=== PATIENT | female | born 1940 | race Caucasian/White ===

== ENCOUNTER 2016-06-12 09:29 | Inpatient (IN) | payer MEDICARE, OTHER ==
[~2016-06-12] VITALS: Ht 157.5 cm; Wt 86.9 kg
[2016-06-12] MEDS: TIOTROPIUM INHALER/CAPSULE (SPIRIVA) INH SCH (08:00)
[~2016-06-12 09:29] MED LIST: /ADVA50050; /ALEN70TA; /LINE60TA PO; /OXYB10XLT PO; /TIOT18INH; ADV250INH INH; ALBU0.084 INH; ALBU1.25 INH; ALBU17IN INH; ALBU83IN INH; ALBUPOW25 NEB; ALBUPOW9 XX; ALEN70TA39 PO; ALPR0.5T3 PO; AMLO10TA2 PO; ASAC800T2 PO; ASPI1TAB PO; ASPI81TA85 PO; AZIT250T3 PO; AZIT500T2 PO; Amlodipine Besylate PO; BENI20TA11; BUDEPOW INH; CALC12502; CALC1TAB30 PO; CALC500T49 PO; CALC600T7 PO; CALC950T PO; CALCTAB41 PO; CALCTAB68 PO; CLAR10CA3 PO; CLAR1TAB2 PO; CLARITIN; COLA100C PO; COLA50CA3 PO; COUM1TAB17 PO; COUM1TAB19 PO; COUM2.5T11 PO; COZA100T; DITROPAXL5 PO; DOXY10CA PO; ECOT325T5; EFFEXOR; ENTO3CAP5 PO; ERYT5OPO OD; ESTR3TA; FERR325T PO; FERR325T3 PO; FISHCAP PO; FLON0.05; FLON0.054; FLON1SPR; FLUO20CA8 PO; FLUO20CA9 PO; FLUO40CA57 PO; FLUT1SPR2; FOSAMAX70 PO; FURO20TA2 PO; GABA400C PO; GABA600T PO; GABA600T3; HYDR-3716 PO; HYDR-4274 PO; HYDR7.5T38 PO; IPRA2IN INH; IPRASOL4 INH; LASI20TA PO; LASI40TA PO; LEVA500T PO; LEVO500T PO; LOSA50TA20 PO; LOVE0.8I SC; LUNE3TAB PO; LUNE3TAB48 PO; MAG-OX PO; MAGN400T5 PO; MAGN500T PO; MAGN500T2 PO; MAGN500T5 PO; MECL12.575 PO; MIRA3350 PO; NEUR600T PO; NICOTINE GUM PO; NITR4TASL SL; NORC7.5T PO; NORV5TAB PO; NYST50SS SS; OMEP40CA2 PO; OXYB10TA; OXYB10TA PO; OXYB15TA PO; OXYB5SYP PO; OXYB5TA PO; PANT40TA2 PO; PERC5TAB8; PRED10TA PO; PRED10TA2 PO; PRED20TA PO; PRED50TA2 PO; PRED5TAB PO; PRIL20CA; PROV90AE; SENO8.6T10 PO; SIMV10TA2; SIMV10TA2 PO; SOMA; SPIR1CAP INH; SPIRIVA INH; TEMA15CA2 PO; THEO300T5 PO; THEOPHYLLINE; TRAZ100T4 PO; TRAZ10TA PO; TRAZ25TA PO; VENTAER INH; VICOBULK PO; VITA500047 PO; VITAD1000T PO; VITMTA PO; WARF-18 PO; WARF-20 PO; WARF-58 PO; XANA0.5T; XANA0.5T PO; XOPE1.252; ZALE10CA PO; [UNRECOGNIZED DRUG - CODE] PO; [UNRECOGNIZED DRUG - CODE] PO
[2016-06-12] MEDS ORDERED: IPRATROPIUM 0.5MG/ALBUTEROL 2.5MG INH SOL UD 3ML (DUONEB)(J7620) As Ordered ONE (10:03)
[2016-06-12] MEDS ORDERED: methylPREDNISolone INJ 125 MG/2 ML VIAL (J2930) As Ordered ONE (10:09)
--- NOTE | 2016-06-12 10:12 | REP ---
Clinical: Shortness of breath . Comparison: 05/27/2016 . Findings: The mediastinum and cardiac silhouette are stable and within normal limits for portable technique. The lung crump are clear without acute consolidation, effusion, or pneumothorax. Skeletal structures are intact. Impression: Normal portable chest x-ray Signed by Abisai Reyes MD 06/12/2016 10:04 A
[2016-06-12] MEDS ORDERED: WARF-23 PO (10:29)
[2016-06-12] MEDS ORDERED: OXYB10TA PO (10:29)
[2016-06-12] MEDS ORDERED: FLUO20CA9 PO (10:29)
[2016-06-12 10:35] LABS: INR 1.32
[2016-06-12 10:47] LABS: ABG BASE EXCESS 8.1 (-2.0-2.0); ABG DEVICE NASAL CANN; ABG PARTIAL PRESSURE CO2 47.3 mmHg (35.0-45.0); ABG PARTIAL PRESSURE O2 59.2 mmHg (75.0-100.0); ABG STANDARD HCO3 31.8 MEQ/L (22.0-26.0); ABG TOTAL CO2 34.4 MEQ/L (23.0-31.0); ABG pH (ARTERIAL) 7.461 UNITS (7.350-7.450)
[2016-06-12 10:52] LABS: ANION GAP 10 MEQ/L (8-16); BLOOD UREA NITROGEN 27 MG/DL (7-18); CALCIUM LEVEL 8.8 MG/DL (8.8-10.2); CARBON DIOXIDE LEVEL 32 MEQ/L (21-32); CHLORIDE LEVEL 103 MEQ/L (98-107); CREATININE FOR GFR 1.74 MG/DL (0.55-1.02); GLOMERULAR FILTRATION RATE 30.2 (>39); GLUCOSE, FASTING 165 MG/DL (83-110); POTASSIUM SERUM 3.9 MEQ/L (3.5-5.1); SODIUM LEVEL 145 MEQ/L (136-145)
[2016-06-12 10:54] LABS: MEAN CORPUSCULAR HEMOGLOBIN 30.2 pg (27.0-33.0); MEAN CORPUSCULAR HGB CONC 31.6 g/dl (32.0-36.5); MEAN CORPUSCULAR VOLUME 95.7 fl (80.0-96.0); PLATELET COUNT, AUTOMATED 252 k/mm3 (150-450); RED CELL DISTRIBUTION WIDTH 15.3 % (11.5-14.5); WHITE BLOOD COUNT 20.8 K/mm3 (4.0-10.0)
--- NOTE | 2016-06-12 11:04 | REP ---
Clinical: Pain and swelling with shortness of breath . Technique: Laird scale and color Doppler evaluation using linear high frequency transducer. Findings: Ultrasound examination of the left lower extremity deep venous structures from the common femoral vein to the popliteal vein demonstrates normal compressibility flow and wave patterns in response to respiration and augmentation. There is no evidence for deep venous thrombosis. Impression: No evidence for deep venous thrombosis. Signed by Abisai Reyes MD 06/12/2016 10:56 A
[2016-06-12 11:29] LABS: BANDS 7 % (< 11)
[2016-06-12 11:30] LABS: ANISOCYTOSIS 1+; MICROCYTOSIS 1+; POIKILOCYTOSIS 1+
[2016-06-12] MEDS ORDERED: AZITHROMYCIN INJ 500MG VIAL (J0456) As Ordered ONE (11:45)
[2016-06-12] MEDS ORDERED: cefTRIAXone SOD 1 GM VIAL (J0696) As Ordered ONE (11:45)
--- NOTE | 2016-06-12 12:15 | REP ---
Clinical: Seizures. Comparison: 11/25/2014 . Findings: Age-related atrophy and microvascular ischemic changes are appreciated along with chronic scattered parenchymal calcifications. The ventricles and sulci are symmetric. Laird-white differentiation is maintained. There is no evidence for acute intracranial hemorrhage, mass/mass effect, pathology or infarction. No extra-axial fluid collection. Calvarium is intact. Paranasal sinuses and mastoid air cells are clear. Impression: Age related atrophy and microvascular ischemic changes. No acute intracranial hemorrhage, infarction, or mass/mass effect. Signed by Abisai Reyes MD 06/12/2016 12:06 P
[2016-06-12 12:28] LABS: MAGNESIUM LEVEL 1.8 MG/DL (1.8-2.4)
[2016-06-12] MEDS ORDERED: ONDANSETRON 4MG/2ML VIAL (J2405) IV PRN (13:15)
--- NOTE | 2016-06-12 13:39 | HPEPDOC ---
General Date of Admission 06/12/16 Chief Complaint The patient is a 75-year-old female admitted with a reason for visit of Short Of Breath. History of Present Illness 75-year-old female past medical history of breast cancer, COPD on 2 L of home oxygen at baseline, pulmonary embolus on Coumadin, depression, and CKD stage III presented to the ER with a chief complaint of increasing shortness of breath. The patient was recently discharged from here after completing antibiotics and being tapered off steroids for a COPD exacerbation. Since then, the patient states that her shortness of breath has returned and gotten worse. She did go to her primary care physician Dr. Lee, and did complete a 7 day trial of Levaquin and she was prescribed steroids yesterday. However, the patient states that she has been feeling more weak and short of breath over all , and this is much worse than her baseline. She denies any fevers, chills, lightheaded and is, chest pain, palpitations, abdominal pain, or any nausea, vomiting, or diarrhea. In the ER, a chest x-ray revealed no acute findings. Her ABG appears to be close to her baseline readings when compared to the past. However, the patient was noted to be actively wheezing on exam and uncomfortable. She has been given a dose of 125 mg of Solu-Medrol and started on IV antibiotics here. We will admit the patient to the hospitalist service with a COPD exacerbation. Home Medications Scheduled (Calcium 500+D 500-200 mg-Unit) 1 Tab Tab 1 TAB PO BID (Reported) Alendronate Sodium (Alendronate Sodium) 70 Mg Tab 70 MG PO QWEEK (Reported) EVERY TUESDAY Amlodipine Besylate (Amlodipine Besylate) 10 Mg Tab 10 MG PO DAILY (Reported) Aspirin (Aspirin 81) 81 Mg Tab 81 MG PO DAILY (Reported) Docusate Sodium (Colace) 100 Mg Cap 100 MG PO BID (Reported) Ferrous Sulfate (Ferrous Sulfate) 325 Mg Tab 325 MG PO DAILY (Reported) Fluoxetine Hcl (Fluoxetine HCl) 20 Mg Cap 60 MG PO DAILY (Reported) Fluticasone Propionate (Fluticasone Propionate 0.05%) 120 [place]/16 Gm Naspr 2 SPRAY NA QHS (Reported) PER NOSTRIL Furosemide (Furosemide) 20 Mg Tab 60 MG PO DAILY (Reported) Gabapentin (Gabapentin) 600 Mg Tab 600 MG PO BID (Reported) Loratadine (Claritin) 10 Mg Tab 10 MG PO QHS (Reported) Magnesium Oxide (Magnesium) 500 Mg Tab 500 MG PO QHS (Reported) Nystatin (Nystatin Oral Susp) 5 Ml Susp 5 ML SS QID (Reported) for 10 days, filled 06/03 Oxybutynin Chloride (Oxybutynin Chloride ER) 10 Mg Tab 10 MG PO DAILY (Reported ) Pantoprazole Sodium (Pantoprazole Sodium) 40 Mg Tab 40 MG PO DAILY (Reported) Polyethylene Glycol (Miralax) 1 Pow Pow 17 GM PO DAILY (Reported) Prednisone (Prednisone) 10 Mg Tab 10 MG PO DAILY (Reported) Salmeterol/Fluticasone (Advair Diskus 250-50 Mcg/Dose) 14 Puff/Inhaler Aerp 1 PUFF INH BID (Reported) Simvastatin (Simvastatin) 10 Mg Tab 10 MG PO QHS (Reported) Tiotropium Roulette Monohydrate (Spiriva Handihaler) 18 Mcg Cap 1 INHALATION INH DAILY (Reported) Trazodone HCl (Trazodone HCl) 100 Mg Tab 200 MG PO QHS SLEEP (Reported) Warfarin Sod (Warfarin Sodium) 5 Mg Tab 5 MG PO QPM (Reported) Scheduled PRN Acetaminophen/Hydrocodone ([place]illips 7.5-325 mg) 1 Tab Tab 1 TAB PO QID PRN PRN PAIN (Reported) Albuterol Sulfate (Ventolin Hfa) 200 Puff/8 Gm Aers 2 PUFF INH Q4H PRN PRN SHORTNESS OF BREATH (Reported) Albuterol/Ipratropium (Ipratropium Roulette/Albut 0.5-2.5 (3) mg/3Ml) 1 Alek Alek 1 ALEK INH Q4H PRN PRN SHORTNESS OF BREATH (Reported) Nitroglycerin (Nitrostat) 0.4 Mg Subl 0.4 MG SL Q5MP PRN PRN CHEST PAIN ( Reported) Allergies Coded Allergies: Lisinopril (Verified Allergy, Intermediate, HIVES ND SWELLING, 09/18/12) Penicillins (Verified Allergy, Intermediate, TRIMOX-HIVES, 09/18/12) Sulfa Drugs (Verified Allergy, Intermediate, HIVES, 09/18/12) Amoxicillin (Unverified Allergy, Unknown, 08/20/15) Oxycodone (Verified Allergy, Unknown, PERCOCET, 09/18/12) Temazepam (Unverified Allergy, Unknown, 08/20/15) Past Medical History Medical History As noted in HPI Family History Significant Family History: No pertinent family hx Social History * Smoker: former Smoker Alcohol: denies Drugs: denies Social History Currently retired, lives with her daughter in [place]. Previously able to ambulate with a walker. However unable to do so due to overall deconditioning and worsening shortness of breath over the last 4-8 weeks. Review of Symptoms Other systems 10 point review of systems negative unless otherwise specified in HPI. Physical Examination ENT Exam: Positive: Atraumatic, Mucous membr. moist/pink Neck Exam: Negative: JVD Chest Exam: Positive: Diminished, Wheezing, Negative: Rales Heart Exam: Positive: Normal S1, Normal S2, Rate Normal Telemetry: Positive: Sinus Abdomen Exam: Positive: Soft, Negative: Tenderness Extremity Exam: Positive: Other (left calf noted to be larger than right, this is the patient's baseline. Ultrasound of the lower extremity is negative for DVT in the ER.) Vital Signs As noted in EMR. Laboratory Data Labs 24H Laboratory Tests 2 06/12/16 09:59: Anion Gap 10, Anisocytosis 1+, B-Type Natriuretic Peptide 133H, Band Neutrophils 7, White Blood Count 20.8H, Red Blood Count 3.57L, Hemoglobin 10.8L , Hematocrit 34.1L, Mean Corpuscular Volume 95.7, Mean Corpuscular Hemoglobin 30.2, Mean Corpuscular Hemoglobin Concent 31.6L, Red Cell Distribution Width 15.3H, Platelet Count 252, Neutrophils (%) (Auto) , Lymphocytes (%) (Auto) , Monocytes (%) (Auto) , Eosinophils (%) (Auto) , Basophils (%) (Auto) , Neutrophils # (Auto) , Lymphocytes # (Auto) , Monocytes # (Auto) , Eosinophils # (Auto) , Basophils # (Auto) , Blood Urea Nitrogen 27H, Creatinine 1.74H, Sodium Level 145, Potassium Level 3.9, Chloride Level 103, Carbon Dioxide Level 32, Calcium Level 8.8, Total Creatine Kinase 40, Creatine Kinase MB 1.0, Creatine Kinase MB Relative Index 2.50, Glomerular Filtration Rate 30.2L, Large Unclassified Cells # , Large Unclassified Cells % , Lymphocytes (Manual) 2L, Magnesium Level 1.8, Microcytosis 1+, Monocytes (Manual) 3, Neutrophils 88H, Platelet Estimate NORMAL, Poikilocytosis 1+, Prothromb Time International Ratio 1.32, Prothrombin Time 16.5H, Troponin I < 0.02 06/12/16 10:32: Arterial Blood pH 7.461H, Arterial Blood Partial Pressure CO2 47.3H, Arterial Blood Partial Pressure O2 59.2L, Arterial Blood Total CO2 34.4H, Arterial Blood HCO3 33.0H, Arterial Blood Base Excess 8.1H, Arterial Blood Oxygen Saturation 92.2L, Blood Gas Bicarbonate Standard 31.8H, Oxygen Delivery Device NASAL CARLOS 06/12/16 11:37: Lactic Acid Level 2.3*H CBC/BMP Laboratory Tests 06/12/16 09:59 Calcium Level 8.8, Total Creatine Kinase 40, Red Blood Count 3.57 L, Mean Corpuscular Volume 95.7, Mean Corpuscular Hemoglobin 30.2, Mean Corpuscular Hemoglobin Concent 31.6 L, Red Cell Distribution Width 15.3 H, Neutrophils (%) ( Auto) , Lymphocytes (%) (Auto) , Monocytes (%) (Auto) , Eosinophils (%) (Auto) , Basophils (%) (Auto) , Neutrophils # (Auto) , Lymphocytes # (Auto) , Monocytes # (Auto) , Eosinophils # (Auto) , Basophils # (Auto) Microbiology Microbiology 06/12/16 Blood Culture, Received Pending 06/12/16 Blood Culture, Received Pending 06/12/16 Influenza Virus Type A Antigen - Final, Complete 06/12/16 Influenza Virus Type B Antigen - Final, Complete 06/12/16 Gram Stain - Final, Resulted 06/12/16 Sputum Culture, Resulted Pending Plan / VTE VTE Prophylaxis Ordered?: Yes Plan Plan (1) COPD exacerbation Status: Acute Response to Treatment: Stable Problem Text: ABG noted to be within the patient's baseline limits Chest x-ray notable for chronic fibrotic changes We will start the patient on Rocephin, azithromycin here for COPD exacerbation Status post Solu-Medrol 125 mg in the ED, we'll continue 60 every 8 hours Continue Advair, Tiotropium, and duo nebs [id number] Sputum culture ordered We'll continue to monitor the patient's respiratory status Chronic kidney disease Status: Chronic Response to Treatment: Stable Problem Text: Patient's baseline serum creatinine noted to be between 1.6 and 1.8 (3) Pulmonary embolism Status: Chronic Response to Treatment: Stable Problem Text: Status post IVC filter in 04/27 Patient's INR noted to be subtherapeutic at 1.32 today The patient states that her INR has been very labile in the past, and she has had a difficult time controlling this with her PCP We'll give patient an 7.5 mg dose this evening Continue Coumadin 5 mg daily starting tomorrow, and we will make any adjustments thereafter if necessary (4) Diabetes Status: Chronic Response to Treatment: Stable Problem Text: Continue on insulin sliding scale. (5) HTN (hypertension) Status: Chronic Response to Treatment: Stable Problem Text: Currently controlled, continue on home regimen of Norvasc (6) Depression Status: Chronic Response to Treatment: Stable Problem Text: No suicidal or homicidal ideations Continue on trazodone (7) CAD (coronary artery disease) Status: Chronic Response to Treatment: Stable Problem Text: Continue on aspirin 81 mg and statin ? Not on beta roque possibly secondary to underlying COPD (8) Diastolic congestive heart failure Status: Chronic Response to Treatment: Stable Problem Text: On Lasix 60 mg daily Does not appear to be decompensated at this time (9) ?Tremors Patient noted to have episodes of tremors/rigors in the ED Appears to be alert, oriented with no confusion following these events Will continue to monitor, consider EEG if these symptoms persist or worsen Disposition The Patient did express concern about multiple visits and hospitalizations to [facility] over the last few weeks. She understands that she does have end-stage COPD along with chronic kidney disease and heart failure. The patient did request to have a hospice consult placed to discuss further options regarding her medical care. JUAN AGRAWAL MD Jun 12, 2016 13:39
[2016-06-12] MEDS ORDERED: NITROGLYCERIN 0.4 MG SUBL TABLET SL PRN (13:45)
[2016-06-12] MEDS ORDERED: IPRATROPIUM 0.5MG/ALBUTEROL 2.5MG INH SOL UD 3ML (DUONEB)(J7620) NEB PRN (13:45)
[2016-06-12] MEDS ORDERED: GLUCOSE 4 GM CHEW TABLET PO PRN (14:00)
[2016-06-12] MEDS ORDERED: DEXTROSE 50% 50 ML SYRINGE IV PRN (14:00)
[2016-06-12] MEDS ORDERED: GLUCAGON FOR INJ 1 MG VIAL (J1610) SC PRN (14:00)
--- NOTE | 2016-06-12 15:26 | EDDOCDS ---
Physician Documentation [facility] Name: Isidra Delacruz Age: 75 yrs Sex: Female : 1940 Arrival Date: 06/12/2016 Time: 09:29 Bed 18 Private MD: Disposition: 06/12/16 12:14 Hospitalization ordered by Zain Moore for Inpatient Admission. Preliminary diagnosis is Chronic obstructive pulmonary disease with acute lower respiratory infection. - [facility] - Status is Inpatient Admission. jjr - Condition is Stable. - Problem is an acute exacerbation. - Symptoms have improved. Historical: - Allergies: Amoxicillin (Hives); Lisinopril (Swelling); Oxycodone HClagitation; Temazepam (Swelling); SULFA (SULFONAMIDES) (Hives); - Home Meds: 1. [place] 7.5-325 mg Oral tab qid prn 2. albuterol sulfate 2.5 mg /3 mL (0.083 %) Inhl nebu 4 times per day (Last dose: 06/12/2016) 3. albuterol sulfate 90 mcg/actuation Inhl aepb every 4 hours (Last dose: 06/12/2016) 4. alendronate 70 mg oral tab once wkly Tuesday 5. amlodipine 10 mg Oral tab 1 tab once daily (Last dose: 06/12/2016) 6. aspirin 81 mg Oral chew once daily (Last dose: 06/12/2016) 7. Calcium + Vitamin D 5oo/200 Oral twice a day (Last dose: 06/12/2016) 8. Colace 100 mg oral tab 1 cap 2 times per day takes 1 daily as needed (Last dose: 06/12/2016) 9. erythromycin 5 mg/gram (0.5 %) Opht oint 6 times per day 10. ferrous sulfate 325 mg (65 mg iron) Oral cpER daily 11. fluoxetine 60 mg Oral tab once daily (Last dose: 06/12/2016) 12. fluticasone-salmeterol 45-21 mcg/actuation inhalation HFAA 2 puffs 2 times per day 13. fluticasone 50 mcg/actuation nasal spsn 2 sprays once daily (Last dose: 06/11/2016) 14. furosemide 60 mg Oral tab 1.5 tab once daily (Last dose: 06/12/2016) 15. gabapentin 600 mg Oral tab 1 tab bid (Last dose: 06/12/2016) 16. loratadine 10 mg Oral tab 1 tab once daily (Last dose: 06/11/2016) 17. magnesium oxide 500 mg Oral cap nightly (Last dose: 06/11/2016) 18. Nitrostat 0.4 mg SL subl every 5 minutes prn (Last dose: 06/12/2016) 19. nystatin 100,000 unit/mL Oral susp 10 mL 4 times per day 20. oxybutynin chloride 15 mg Oral tr24 once daily (Last dose: 06/12/2016) 21. Protonix 40 mg Oral TbEC 1 tab once daily (Last dose: 06/12/2016) 22. oxygen NC 2 liters continuous 23. polyethylene glycol 3350 17 gram/dose oral powd once daily (Last dose: 06/12/2016) 24. prednisone 10 mg Oral tab once daily (Last dose: 06/12/2016) 25. Advair Diskus 250-50 mcg/dose Inhl dsdv 2 times per day (Last dose: 06/11/2016) 26. simvastatin 10 mg Oral tab 1 tab once daily (Last dose: 06/11/2016) 27. Spiriva with HandiHaler 18 mcg Inhl CpDv 1 cap once daily (Last dose: 06/11/2016) 28. trazodone 100 mg Oral tab 2 tabs nightly (Last dose: 06/11/2016) 29. Coumadin 5 mg oral tab once daily (Last dose: 06/11/2016) - PMHx: Cancer, Breast - Left; Cancer, Breast - Right; CHF; GERD; PE; Anxiety; COPD; - PSHx: Mastectomy- Bilateral; Tubal ligation; Ankle Arthroplasty, Left; Shoulder Arthroplasty, Left; lumbar surgery; - Social history: Smoking status: Patient states former smoker of tobacco. No barriers to communication noted, The patient speaks fluent [place]. - : The pt / caregiver states he / she is on anticoagulants: coumadin. Home medication list is obtained from a discharge med list. - Exposure Risk Screening:: None identified. Vital Signs: 06/12 09:46 BP 141 / 82; Pulse 95; Resp 24; Temp 96.9(O); Pulse Ox 91% on 2 lpm NC; Weight 86.18 kg jml1 / 189.99 lbs; Height 5 ft. 2 in. (157.48 cm); Pain 8/10; 09:59 BP 203 / 86 (auto/); jjr 09:59 Pulse 82 MON; Pulse Ox 91% ; jjr 10:14 BP 178 / 81 (auto/); jjr 10:14 Pulse 86 MON; Pulse Ox 91% ; jjr 10:44 BP 185 / 81 (auto/); jjr 10:44 Pulse 76 MON; Pulse Ox 88% ; jjr 10:49 Pulse 74 MON; Pulse Ox 91% on 2 lpm NC; jjr 11:14 BP 138 / 63 (auto/); jjr 11:14 Pulse 74 MON; Resp 24; Pulse Ox 98% ; jjr 11:44 BP 146 / 67 (auto/); jjr 11:44 Pulse 84 MON; Resp 24; Pulse Ox 90% on 2 lpm NC; jjr 12:13 Pulse 100 MON; Pulse Ox 88% ; jjr 12:14 BP 117 / 91 (auto/); jjr 12:44 BP 126 / 60 (auto/); jjr 12:44 Pulse 94 MON; Resp 20; Pulse Ox 89% on 2 lpm NC; jjr 14:24 BP 129 / 75 (auto/); jjr 14:24 Pulse 80 MON; jjr 14:26 BP 129 / 75; Pulse 81; Resp 24; Temp 98.6(O); Pulse Ox 92% on 2 lpm NC; Pain 0/10; jjr 15:19 Pulse 80 MON; jjr 15:21 BP 137 / 62 (auto/); Resp 24; Pulse Ox 90% on 2 lpm NC; jjr 09:46 Body Mass Index 34.75 (86.18 kg, 157.48 cm) jml1 MDM: 09:34 ECG WITH READING ER PHYS+CARDIAG ordered. EDMS 09:52 Solu-MEDROL 125 mg IVP once ordered. sd1 09:52 -Blood Culture (Adults Only), peripheral from different site, or from device/port/PICC sd1 etc. if present ordered. 09:52 Call Respiratory ordered. sd1 09:52 Director Of Materials Management/Pulse Ox/q 15 min VS ordered. sd1 09:52 IV Saline Lock ordered. sd1 09:52 Oxygen at 4L/Min NC or Home dosage ordered. sd1 09:52 Rhythm Strip to chart ordered. sd1 09:52 Albuterol-Ipratropium 1 neb Nebulizer every 20 minutes x3 ordered. sd1 09:52 -Arterial Blood Gas Ordered. EDMS 09:52 B-Type Natiuretic Peptide Ordered. EDMS 09:52 Basic Metabolic Profile Ordered. EDMS 09:52 CBC with Diff Ordered. EDMS 09:52 Cardiac Injury Profile Ordered. EDMS 09:52 Troponin Ordered. EDMS 09:52 -Blood Culture Ordered. EDMS 09:53 Chest, 1 View Ordered. EDMS 09:53 BED REQUEST+ADM ordered. EDMS 09:56 -Blood Culture (Adults Only), peripheral from different site, or from device/port/PICC deg etc. if present complete. 09:56 Call Respiratory complete. deg 09:56 BLOOD CULTURES Ordered. EDMS 10:03 Sputum Culture & Gram Stain Ordered. EDMS 10:04 PT/INR Ordered. EDMS 10:12 US Lower Extremity R/O DVT Ordered. EDMS 10:57 DIFFERENTIAL NO CHARGE Ordered. EDMS 10:57 PLATELET ESTIMATE Ordered. EDMS 11:04 Financial registration complete. mm15 11:06 -Arterial Blood Gas Reviewed. sd1 11:06 B-Type Natiuretic Peptide Reviewed. sd1 11:06 Basic Metabolic Profile Reviewed. sd1 11:06 CBC with Diff Reviewed. sd1 11:06 PT/INR Reviewed. sd1 11:06 Cardiac Injury Profile Reviewed. sd1 11:06 Troponin Reviewed. sd1 11:06 Chest, 1 View Reviewed. sd1 11:10 -Influenza A&B Rapid Antigen - Nose Ordered. EDMS 11:25 Lactic Acid (Laird tube on ice) Ordered. EDMS 11:41 CBC with Diff Reviewed. sd1 11:41 PLATELET ESTIMATE Reviewed. sd1 11:41 US Lower Extremity R/O DVT Reviewed. sd1 11:43 cefTRIAXone 1 grams IVPB once over 30 mins; dilute in 50mL of NS or D5W ordered. sd1 11:43 azithromycin 500 mg IVPB once over 1 hrs; dilute in 250mL of D5W or NS ordered. sd1 11:49 CT Head Without Contrast Ordered. EDMS 12:00 -Influenza A&B Rapid Antigen - Nose Reviewed. sd1 12:12 CONSISTENT CARBOHYDRATE+DIET ordered. EDMS 12:41 T-Sheet-- Draft Copy was scanned into [employer] and attached to record. [facility] 13:22 Admission / Observation Status ordered. EDMS 13:23 CONSISTENT CARBOHYDRATES ordered. EDMS 15:19 [facility] Payment Agreement was scanned into [employer] and attached to record. [id number] Administered Medications: 10:18 Drug: Solu-MEDROL 125 mg [Solu-Medrol 500 mg intravenous solution (125 mg)] Route: IVP; jjr Site: left antecubital; 11:00 Drug: Albuterol-Ipratropium 1 neb [ipratropium-albuterol 0.5 mg-3 mg(2.5 mg base)/3 mL js11 nebulization soln (1 neb)] Route: Nebulizer; 11:18 Drug: Albuterol-Ipratropium 1 neb [ipratropium-albuterol 0.5 mg-3 mg(2.5 mg base)/3 mL js11 nebulization soln (1 neb)] Route: Nebulizer; 11:32 Drug: Albuterol-Ipratropium 1 neb [ipratropium-albuterol 0.5 mg-3 mg(2.5 mg base)/3 mL js11 nebulization soln (1 neb)] Route: Nebulizer; 12:07 Drug: cefTRIAXone 1 grams [ceftriaxone 1 gram solution for injection] Route: IVPB; jjr Infused Over: 30 mins; Site: left antecubital; Delivery: Syringe pump; 12:31 Follow up: IV Status: Completed infusion; IV Intake: 10ml jjr 12:32 Drug: azithromycin 500 mg [azithromycin 500 mg intravenous solution] Route: IVPB; jjr Infused Over: 1 hrs; Site: left antecubital; 13:34 Follow up: IV Status: Completed infusion; IV Intake: 250ml jjr Signatures: Dispatcher [employer] EDMS Larissa Mckeon MD MD sd1 Murray, Denise, [employer] Unit deg Morris RIOS, LEYDA Alvarenga RN Wendy Whittington RN RN jjr McGrath, Marlynn mm15 Larissa Abrams Jordan js11 The chart was reviewed and I authenticate all verbal orders and agree with the evaluation and treatment provided.Corrections: (The following items were deleted from the chart) 10:27 09:41 Social history Smoking status: Patient uses tobacco products, current every day daniellaswati smoker. No barriers to communication noted, The patient speaks fluent [place], daniellaswati 12:25 12:04 MAGNESIUM LEVEL+LAB ordered. EDMS EDMS Attachments: 12:41 T-Sheet-- Draft Copy [facility] 15:19 [facility] Payment Agreement [id number] MTDD
--- NOTE | 2016-06-12 15:26 | EDDOCDS ---
Nurse's Notes [facility] Name: Isidra Delacruz Age: 75 yrs Sex: Female : 1940 Arrival Date: 06/12/2016 Time: 09:29 Bed 18 Private MD: Diagnosis: Chronic obstructive pulmonary disease with acute lower respiratory infection Presentation: 06/12 09:39 Presenting complaint: Patient states: intermittent substernal chest pain radiating to jjr left anterior chest for past 2 hours, recent discharge from [facility] with copd exacerbation. Aspirin was not taken prior to arrival. Adult Sepsis Screening: The patient does not have new or worsening altered mentation. Patient has a respiratory rate of greater than or equal to 22 (1 point). Systolic blood pressure is greater than 100. Patient has a qSOFA score of 1- Negative Sepsis Screen. Suicide/Homicide risk assessment- the patient denies having any suicidal and/or homicidal ideations and does not present with any other emotional, behavioral or mental health complaints. 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 Transition of care: patient was not received from another setting of care. 09:39 Acuity: GALA Level 3 jjr 09:39 Method Of Arrival: Ambulance jjr Triage Assessment: 09:41 General: Appears in no apparent distress, Behavior is appropriate for age. jjr Cardiovascular: Chest pain radiates Does not radiate. episodes are intermittent began 2 hours prior to arrival. Historical: - Allergies: Amoxicillin (Hives); Lisinopril (Swelling); Oxycodone HClagitation; Temazepam (Swelling); SULFA (SULFONAMIDES) (Hives); - Home Meds: 1. Spencer 7.5-325 mg Oral tab qid prn 2. albuterol sulfate 2.5 mg /3 mL (0.083 %) Inhl nebu 4 times per day (Last dose: 06/12/2016) 3. albuterol sulfate 90 mcg/actuation Inhl aepb every 4 hours (Last dose: 06/12/2016) 4. alendronate 70 mg oral tab once wkly Tuesday 5. amlodipine 10 mg Oral tab 1 tab once daily (Last dose: 06/12/2016) 6. aspirin 81 mg Oral chew once daily (Last dose: 06/12/2016) 7. Calcium + Vitamin D 5oo/200 Oral twice a day (Last dose: 06/12/2016) 8. Colace 100 mg oral tab 1 cap 2 times per day takes 1 daily as needed (Last dose: 06/12/2016) 9. erythromycin 5 mg/gram (0.5 %) Opht oint 6 times per day 10. ferrous sulfate 325 mg (65 mg iron) Oral cpER daily 11. fluoxetine 60 mg Oral tab once daily (Last dose: 06/12/2016) 12. fluticasone-salmeterol 45-21 mcg/actuation inhalation HFAA 2 puffs 2 times per day 13. fluticasone 50 mcg/actuation nasal spsn 2 sprays once daily (Last dose: 06/11/2016) 14. furosemide 60 mg Oral tab 1.5 tab once daily (Last dose: 06/12/2016) 15. gabapentin 600 mg Oral tab 1 tab bid (Last dose: 06/12/2016) 16. loratadine 10 mg Oral tab 1 tab once daily (Last dose: 06/11/2016) 17. magnesium oxide 500 mg Oral cap nightly (Last dose: 06/11/2016) 18. Nitrostat 0.4 mg SL subl every 5 minutes prn (Last dose: 06/12/2016) 19. nystatin 100,000 unit/mL Oral susp 10 mL 4 times per day 20. oxybutynin chloride 15 mg Oral tr24 once daily (Last dose: 06/12/2016) 21. Protonix 40 mg Oral TbEC 1 tab once daily (Last dose: 06/12/2016) 22. oxygen NC 2 liters continuous 23. polyethylene glycol 3350 17 gram/dose oral powd once daily (Last dose: 06/12/2016) 24. prednisone 10 mg Oral tab once daily (Last dose: 06/12/2016) 25. Advair Diskus 250-50 mcg/dose Inhl dsdv 2 times per day (Last dose: 06/11/2016) 26. simvastatin 10 mg Oral tab 1 tab once daily (Last dose: 06/11/2016) 27. Spiriva with HandiHaler 18 mcg Inhl CpDv 1 cap once daily (Last dose: 06/11/2016) 28. trazodone 100 mg Oral tab 2 tabs nightly (Last dose: 06/11/2016) 29. Coumadin 5 mg oral tab once daily (Last dose: 06/11/2016) - PMHx: Cancer, Breast - Left; Cancer, Breast - Right; CHF; GERD; PE; Anxiety; COPD; - PSHx: Mastectomy- Bilateral; Tubal ligation; Ankle Arthroplasty, Left; Shoulder Arthroplasty, Left; lumbar surgery; - Social history: Smoking status: Patient states former smoker of tobacco. No barriers to communication noted, The patient speaks fluent Armenian. - : The pt / caregiver states he / she is on anticoagulants: coumadin. Home medication list is obtained from a discharge med list. - Exposure Risk Screening:: None identified. Screenin:31 Infection Control. deg 10:28 Fall Risk. jjr 10:28 Screening information is obtained from the patient. Fall risk: At risk due to age, The jjr following interventions are performed due to a positive Fall Risk Screen: Fall Alert bracelet is placed on the patient. Abuse/DV Screen: The patient / caregiver reports he/she is: not in a situation that causes fear, pain or injury. Nutritional screening: No deficits noted. Advance Directives: There is an active DNR order and the pt has a copy here at this time. home support is adequate. 10:36 Assistance ADL's: Requires assistance with meal preparation, this assistance is jjr provided by family members, bathing, assistance is provided by family members, dressing, assistance is provided by family members, toileting, assistance is provided by family members, housework, assistance is provided by family members, medication administration, assistance is provided by family members. Assessment: 10:18 Neurological: No deficits noted. Cardiovascular: Rhythm is sinus rhythm Chest pain jjr quality is stabbing, is located in substernal area episodes last 2-3 minutes. Respiratory: Airway is patent Respiratory effort is even, unlabored, Respiratory pattern is tachypnea. Derm: Skin is fragile, with poor turgor. 10:31 Cardiovascular: Edema is 1+ to left ankle. jjr 11:07 General: reports another episode of sharp substernal pain radiating to right anterior jjr chest lasting less than 2 minutes while in US, no chest pain currently, family at bedside. Cardiovascular: Rhythm is sinus rhythm with unifocal PVCs. Respiratory: Airway is patent Respiratory effort is even, unlabored. Derm: Skin is pink, warm & dry. 12:08 General: Appears in no apparent distress, Behavior is appropriate for age. jjr Neurological: No deficits noted. Cardiovascular: Rhythm is sinus rhythm. Respiratory: Airway is patent Respiratory effort is even, unlabored, Respiratory pattern is regular. Derm: Skin is pink, warm & dry. 12:17 General: this nurse told by dgtr as she is exiting room that patient is having jjr sharpness to substernal chest, provider informed will continue to monitor as other 2 episodes reported to this chief writer have lasted less than 2 minutes with no changes noted to adjunct history instructor. 12:25 General: pt now reporting decreased chest pain. jjr 12:42 General: called to room by family - daughters at bedside report mother is "shaking all pml over" in to assess pt. pt with scant tremor noted and as this chief writer approached bedside pt began to shake violently all over the bed, lasting approx 5 seconds with no residual change in mental status. pt was immediately alert and oriented answering questions appropriately with clear speech following event. admitting md aware. 12:53 General: hospitalist to bedside. jjr 13:30 General: Appears in no apparent distress, sitting on edge of stretcher, tolerated lunch jjr tray and requesting coffee, family at bedside. Neurological: No deficits noted. Respiratory: Airway is patent Respiratory effort is even, unlabored, Respiratory pattern is regular. Derm: Skin is pink, warm & dry. 14:26 General: Appears in no apparent distress, dgtr reports another shaking episode occurred jjr and she assisted her from edge of bed to supine with rails up, pt denies pain at this time. Neurological: No deficits noted. Cardiovascular: Rhythm is sinus rhythm. Respiratory: Airway is patent Respiratory effort is even, unlabored, Respiratory pattern is regular. Derm: Skin is pink, warm & dry. 15:24 General: Appears in no apparent distress, no change from prior assessments. jjr Vital Signs: 09:46 BP 141 / 82; Pulse 95; Resp 24; Temp 96.9(O); Pulse Ox 91% on 2 lpm NC; Weight 86.18 jml1 kg; Height 5 ft. 2 in. (157.48 cm); Pain 8/10; 09:59 BP 203 / 86 (auto/); jjr 09:59 Pulse 82 MON; Pulse Ox 91% ; jjr 10:14 BP 178 / 81 (auto/); jjr 10:14 Pulse 86 MON; Pulse Ox 91% ; jjr 10:44 BP 185 / 81 (auto/); jjr 10:44 Pulse 76 MON; Pulse Ox 88% ; jjr 10:49 Pulse 74 MON; Pulse Ox 91% on 2 lpm NC; jjr 11:14 BP 138 / 63 (auto/); jjr 11:14 Pulse 74 MON; Resp 24; Pulse Ox 98% ; jjr 11:44 BP 146 / 67 (auto/); jjr 11:44 Pulse 84 MON; Resp 24; Pulse Ox 90% on 2 lpm NC; jjr 12:13 Pulse 100 MON; Pulse Ox 88% ; jjr 12:14 BP 117 / 91 (auto/); jjr 12:44 BP 126 / 60 (auto/); jjr 12:44 Pulse 94 MON; Resp 20; Pulse Ox 89% on 2 lpm NC; jjr 14:24 BP 129 / 75 (auto/); jjr 14:24 Pulse 80 MON; jjr 14:26 BP 129 / 75; Pulse 81; Resp 24; Temp 98.6(O); Pulse Ox 92% on 2 lpm NC; Pain 0/10; jjr 15:19 Pulse 80 MON; jjr 15:21 BP 137 / 62 (auto/); Resp 24; Pulse Ox 90% on 2 lpm NC; jjr 09:46 Body Mass Index 34.75 (86.18 kg, 157.48 cm) jml1 Vitals: 15:25 Log In Time N/A - ambulance arrival. jjr ED Course: 09:31 Patient visited by Tory Arizmendi, Ornamental Brick Installer. deg 09:31 Patient moved to Waiting deg 09:33 Wendy Isaac, RN is Primary Nurse. pml 09:33 Larissa Mckeon MD is Attending Physician. sd1 09:33 Patient visited by Larissa Mckeon MD. sd1 09:33 Patient moved to 18 pml 09:40 Triage Initiated jjr 09:47 Patient visited by Korey Williamson. jml1 09:50 EKG done. (by ED staff). Reviewed by Larissa Mckeon MD. jlf 09:56 Patient visited by Ruben Hernandez PCA. jlf 09:57 Patient visited by Ruben Hernandez PCA. jlf 09:58 Patient visited by Ruben Hernandez PCA. jlf 09:58 Pt greeted and oriented to ED. Patient advised of names of staff involved in care, jlf location of call forrester, wait times and NPO status. primer inserting machine operator on. Pulse ox on. NIBP on. 10:23 Chest, 1 View Returned. EDMS 10:28 Maintain field IV. Dressing intact. Site clean & dry. Gauge & site: 20 gauge left AC. jjr O2 via nasal cannula \\T\\ 2L/min. 10:32 Patient moved to Ultrasound am10 10:37 Sputum Culture & Gram Stain Sent. jml1 10:37 -Blood Culture Sent. jml1 10:40 -Arterial Blood Gas Sent. js11 10:54 Patient moved to 18 am10 11:08 Patient visited by Wendy Isaac RN. jjr 11:21 -Influenza A&B Rapid Antigen - Nose Sent. jjr 11:34 US Lower Extremity R/O DVT Returned. EDMS 11:38 Lactic Acid (Laird tube on ice) Sent. jjr 11:38 DIFFERENTIAL NO CHARGE Sent. jjr 12:08 Patient visited by Wendy Isaac RN. jjr 12:14 Zain Moore is Hospitalizing Provider. sd1 12:21 Notified attending ED physician of Critical lab value. lactic 2.3. pml 12:41 T-Sheet-- Draft Copy was scanned into [employer] and attached to record. seh 12:47 CT Head Without Contrast Returned. EDMS 13:30 Patient visited by Wendy Isaac RN. jjr 14:27 No procedures done that require assistance. jjr 15:19 [facility] Payment Agreement was scanned into [employer] and attached to record. mm15 15:25 Patient visited by Wendy Isaac RN. jjr 15:25 The patient / caregiver is instructed regarding the plan of care and ED course. jjr Administered Medications: 10:18 Drug: Solu-MEDROL 125 mg [Solu-Medrol 500 mg intravenous solution (125 mg)] Route: IVP; jjr Site: left antecubital; 11:00 Drug: Albuterol-Ipratropium 1 neb [ipratropium-albuterol 0.5 mg-3 mg(2.5 mg base)/3 mL js11 nebulization soln (1 neb)] Route: Nebulizer; 11:18 Drug: Albuterol-Ipratropium 1 neb [ipratropium-albuterol 0.5 mg-3 mg(2.5 mg base)/3 mL js11 nebulization soln (1 neb)] Route: Nebulizer; 11:32 Drug: Albuterol-Ipratropium 1 neb [ipratropium-albuterol 0.5 mg-3 mg(2.5 mg base)/3 mL js11 nebulization soln (1 neb)] Route: Nebulizer; 12:07 Drug: cefTRIAXone 1 grams [ceftriaxone 1 gram solution for injection] Route: IVPB; jjr Infused Over: 30 mins; Site: left antecubital; Delivery: Syringe pump; 12:31 Follow up: IV Status: Completed infusion; IV Intake: 10ml jjr 12:32 Drug: azithromycin 500 mg [azithromycin 500 mg intravenous solution] Route: IVPB; jjr Infused Over: 1 hrs; Site: left antecubital; 13:34 Follow up: IV Status: Completed infusion; IV Intake: 250ml jjr Intake: 12:31 IV: 10.00ml; Total: 10.00ml. jjr 13:34 IV: 250.00ml; Total: 260.00ml. jjr RT: 10:40 ABG's drawn from left radial artery allens test done and positive pressure held for 5 js11 minutes no bleeding noted specimen sent pt. tolerated well. 11:00 Initial Med Neb Given as ordered Patient was instructed and evaluated on procedure js11 Patient tolerated procedure well without adverse effect. Respiratory: Breath sounds are diminished bilaterally. 11:19 Subsequent Med Neb Given as ordered Patient tolerated procedure well without adverse js11 effect. Respiratory: Breath sounds are diminished bilaterally. 11:32 Subsequent Med Neb Given as ordered Patient tolerated procedure well without adverse js11 effect. Respiratory: Breath sounds are diminished bilaterally. Order Results: Lab Order: -Arterial Blood Gas; SPEC'M 06/12/16 10:32 Test: ABG pH (ARTERIAL); Value: 7.461; Range: 7.350-7.450; Abnormal: Above high normal; Units: UNITS; Status: F Test: ABG PARTIAL PRESSURE CO2; Value: 47.3; Range: 35.0-45.0; Abnormal: Above high normal; Units: mmHg; Status: F Test: ABG PARTIAL PRESSURE O2; Value: 59.2; Range: 75.0-100.0; Abnormal: Below low normal; Units: mmHg; Status: F Test: ABG TOTAL CO2; Value: 34.4; Range: 23.0-31.0; Abnormal: Above high normal; Units: MEQ/L; Status: F Test: ABG HCO3; Value: 33.0; Range: 22.0-26.0; Abnormal: Above high normal; Units: MEQ/L; Status: F Test: ABG BASE EXCESS; Value: 8.1; Range: -2.0-2.0; Abnormal: Above high normal; Status: F Test: ABG STANDARD HCO3; Value: 31.8; Range: 22.0-26.0; Abnormal: Above high normal; Units: MEQ/L; Status: F Test: ABG O2 SATURATION; Value: 92.2; Range: 95.0-99.0; Abnormal: Below low normal; Units: %; Status: F Test: ABG DEVICE; Value: NASAL CARLOS; Status: F Lab Order: B-Type Natiuretic Peptide; SPEC' 06/12/16 09:59 Test: BRAIN NATRIURETIC PEPTIDE; Value: 133; Range: <100; Abnormal: Above high normal; Units: PG/ML; Status: F Lab Order: Basic Metabolic Profile; SPEC' 06/12/16 09:59 Test: GLUCOSE, FASTING; Value: 165; Range: 83-110; Abnormal: Above high normal; Units: MG/DL; Status: F Test: BLOOD UREA NITROGEN; Value: 27; Range: 7-18; Abnormal: Above high normal; Units: MG/DL; Status: F Test: CREATININE FOR GFR; Value: 1.74; Range: 0.55-1.02; Abnormal: Above high normal; Units: MG/DL; Status: F Test: GLOMERULAR FILTRATION RATE; Value: 30.2; Range: >39; Abnormal: Below low normal; Status: F Test: SODIUM LEVEL; Value: 145; Range: 136-145; Units: MEQ/L; Status: F Test: POTASSIUM SERUM; Value: 3.9; Range: 3.5-5.1; Units: MEQ/L; Status: F Test: CHLORIDE LEVEL; Value: 103; Range: 98-107; Units: MEQ/L; Status: F Test: CARBON DIOXIDE LEVEL; Value: 32; Range: 21-32; Units: MEQ/L; Status: F Test: ANION GAP; Value: 10; Range: 8-16; Units: MEQ/L; Status: F Test: CALCIUM LEVEL; Value: 8.8; Range: 8.8-10.2; Units: MG/DL; Status: F Test Note: ; Units are mL/min/1.73 m2 Chronic Kidney Disease Staging per NKF: Stage I & II GFR >=60 Normal to Mildly Decreased Stage III GFR 30-59 Moderately Decreased Stage IV GFR 15-29 Severely Decreased Stage V GFR <15 Very Little GFR Left ESRD GFR <15 on [place] Lab Order: CBC with Diff; SPEC'M 06/12/16 09:59 Test: WHITE BLOOD COUNT; Value: 20.8; Range: 4.0-10.0; Abnormal: Above high normal; Units: K/mm3; Status: F Test: RED BLOOD COUNT; Value: 3.57; Range: 4.00-5.40; Abnormal: Below low normal; Units: M/mm3; Status: F Test: HEMOGLOBIN; Value: 10.8; Range: 12.0-16.0; Abnormal: Below low normal; Units: g/dl; Status: F Test: HEMATOCRIT; Value: 34.1; Range: 36.0-47.0; Abnormal: Below low normal; Units: %; Status: F Test: MEAN CORPUSCULAR VOLUME; Value: 95.7; Range: 80.0-96.0; Units: fl; Status: F Test: MEAN CORPUSCULAR HEMOGLOBIN; Value: 30.2; Range: 27.0-33.0; Units: pg; Status: F Test: MEAN CORPUSCULAR HGB CONC; Value: 31.6; Range: 32.0-36.5; Abnormal: Below low normal; Units: g/dl; Status: F Test: RED CELL DISTRIBUTION WIDTH; Value: 15.3; Range: 11.5-14.5; Abnormal: Above high normal; Units: %; Status: F Test: PLATELET COUNT, AUTOMATED; Value: 252; Range: 150-450; Units: k/mm3; Status: F Test: NEUTROPHILS; Value: 88; Range: 35-75; Abnormal: Above high normal; Units: %; Status: F Test: BANDS; Value: 7; Range: < 11; Units: %; Status: F Test: LYMPHOCYTES; Value: 2; Range: 16-52; Abnormal: Below low normal; Units: %; Status: F Test: MONOCYTES; Value: 3; Range: 0-8; Units: %; Status: F Test: POIKILOCYTOSIS; Value: 1+; Status: F Test: ANISOCYTOSIS; Value: 1+; Status: F Test: MICROCYTOSIS; Value: 1+; Status: F Lab Order: Cardiac Injury Profile; [facility] 06/12/16 09:59 Test: CPK CREATINE PHOSPHOKINASE; Value: 40; Range: 26-192; Units: U/L; Status: F Test: CK-MB VALUE MASS; Value: 1.0; Range: 0.0-3.6; Units: NG/ML; Status: F Test: MB/CK RELATIVE INDEX; Value: 2.50; Range: < OR =4; Status: F Test Note: ; DIAGNOSIS CRITERIA MMB ng/ml Relative Index (RI) NON-AMI < or = 5 N/A LAIRD ZONE > 5 < or = 4 AMI > 5 > 4 Lab Order: Troponin; [facility] 06/12/16 09:59 Test: TROPONIN I; Value: < 0.02; Range: < 0.10; Units: NG/ML; Status: F Test Note: ; Troponin I Reference Interval for [place] [facility] LOCI: 99th Percentile= 0.00-0.045 ng/ml Risk Stratification: <= 0.10 ng/ml Decreased Risk for Adverse Clinical Events. 0.10-1.50 ng/ml Increased Risk for Adverse Clinical Events. Evaluation of additional criterion and/or repeat testing in 2-6 hours is suggested to rule out myocardial damage. >= 1.50 ng/ml Indicative of Myocardial Injury. Lab Order: Sputum Culture & Gram Stain; [facility] 06/12/16 10:33 Test: GRAM STAIN; Value: GRAM STAIN RESULT; Status: F Test: GRAM STAIN; Value: QUALITY: GOOD; Status: F Test: GRAM STAIN; Value: MANY WBCS; Status: F Test: GRAM STAIN; Value: FEW EPITHELIAL CELLS; Status: F Test: GRAM STAIN; Value: MANY GRAM POSITIVE COCCI IN PAIRS, CHAINS AND CLUSTERS; Status: F Test: GRAM STAIN; Value: MODERATE GRAM POSITIVE RODS; Status: F Test: GRAM STAIN; Value: FEW YEAST LIKE ORGANISM; Status: F Lab Order: PT/INR; SPEC'M 06/12/16 09:59 Test: PROTHROMBIN TIME; Value: 16.5; Range: 12.3-14.5; Abnormal: Above high normal; Units: SECONDS; Status: F Test: INR; Value: 1.32; Status: F Test Note: ; THERAPUTIC HUMAN INR VALUES INDICATIONS NORMAL RANGES PROPHYLAXIS/TREATMENT OF: VENOUS THROMBOSIS 2.0-3.0 PULMONARY EMBOLISM 2.0-3.0 PREVENTION OF SYSTEMIC EMBOLISM FROM: TISSUE HEART VALVES 2.0-3.0 ACUTE MYOCARDIAL INFARCTION 2.0-3.0 VALVULAR HEART DISEASE 2.0-3.0 ATRIAL FIBRILLATION 2.0-3.0 MECHANICAL VALVES(HIGH RISK) 2.5-3.5 RECURRENT MYOCARDIAL INFARCTION 2.5-3.5 Lab Order: PLATELET ESTIMATE; SPEC'M 06/12/16 09:59 Test: PLATELET ESTIMATE; Value: NORMAL; Range: NORMAL; Status: F Lab Order: -Influenza A&B Rapid Antigen - Nose; SPEC'M 06/12/16 11:20 Test: INFLUENZA A RAPID SCR by ICA; Value: INFLUENZA A RESULTS NEGATIVE; Status: F Test: INFLUENZA A RAPID SCR by ICA; Value: Comments:; Status: F Test: INFLUENZA B RAPID SCR by ICA; Value: INFLUENZA B RESULTS NEGATIVE; Status: F Test Note: ; The Influenza test is a direct rapid immunoassay for the qualitative detection of Influenza viral antigen. Cell culture (Viral Culture) testing should be considered to confirm NEGATIVE results and to assist in detecting other viruses that can provide similar clinical symptoms. Please contact the lab within 24 hours ([phone]) if confirmatory testing is desired. Lab Order: Lactic Acid (Laird tube on ice); SPEC'M 06/12/16 11:37 Test: LACTIC ACID LEVEL, LACTATE; Value: 2.3; Range: 0.4-2.0; Abnormal: Above upper panic limits; Units: MMOL/L; Status: F Lab Order: MAGNESIUM LEVEL; SPEC'M 06/12/16 09:59 Test: MAGNESIUM LEVEL; Value: 1.8; Range: 1.8-2.4; Units: MG/DL; Status: F Radiology Order: Chest, 1 View Test: Chest, 1 View REASON FOR EXAMINATION: Shortness of Breath; Clinical: Shortness of breath .; ; Comparison: 05/27/2016 .; ; Findings:; The mediastinum and cardiac silhouette are stable and within normal limits for; portable technique. The lung crump are clear without acute consolidation,; effusion, or pneumothorax. Skeletal structures are intact.; ; Impression:; Normal portable chest x-ray; ; ; Signed by; Abisai Reyes MD 06/12/2016 10:04 A; Radiology Order: US Lower Extremity R/O DVT Test: US Lower Extremity R/O DVT REASON FOR EXAMINATION: swelling; Clinical: Pain and swelling with shortness of breath .; ; Technique: Laird scale and color Doppler evaluation using linear high frequency; transducer.; ; Findings:; Ultrasound examination of the left lower extremity deep venous structures from; the common femoral vein to the popliteal vein demonstrates normal compressibility; flow and wave patterns in response to respiration and augmentation. There is no; evidence for deep venous thrombosis.; ; Impression:; No evidence for deep venous thrombosis.; ; ; Signed by; Abisai Reyes MD 06/12/2016 10:56 A; Radiology Order: CT Head Without Contrast Test: CT Head Without Contrast REASON FOR EXAMINATION: ?seizure; Clinical: Seizures.; ; Comparison: 11/25/2014 .; ; Findings:; Age-related atrophy and microvascular ischemic changes are appreciated along with; chronic scattered parenchymal calcifications. The ventricles and sulci are; symmetric. Laird-white differentiation is maintained. There is no evidence for; acute intracranial hemorrhage, mass/mass effect, pathology or infarction. No; extra-axial fluid collection. Calvarium is intact. Paranasal sinuses and; mastoid air cells are clear.; ; Impression:; Age related atrophy and microvascular ischemic changes.; No acute intracranial hemorrhage, infarction, or mass/mass effect.; ; ; Signed by; Abisai Reyes MD 06/12/2016 12:06 P; Outcome: 12:14 Decision to Hospitalize by Provider. sd1 15:24 Discharge Assessment: patient administered narcotics - no. The following High Risk jjr Discharge criteria are identified: None. Admitted to PCU accompanied by nurse, accompanied by tech, family with patient, via stretcher, with oxygen, on monitor, with chart. Condition: stable. CT Study completed. Property :Personal belongings accompany Pt. 15:25 Patient left the ED. jjr Signatures: Dispatcher [employer] EDMS Larissa Mckeon MD MD sd1 Tory Arizmendi, Ornamental Brick Installer Unit deg Gretchen Gil am10 Wendy Isaac, RN RN jjAri Schumacher js11 Korey Williamson jml1 Abbie EstradaRN RN Jose Antonio Arcos mm15 Ruben Hernandez, ANISHA RECORDING CLERK Larissa Huang Corrections: (The following items were deleted from the chart) 10:27 09:41 Social history Smoking status: Patient uses tobacco products, current every day jjr smoker. No barriers to communication noted, The patient speaks fluent Armenian, jr 14:27 14:26 BP 129 / 75; Pulse 81bpm; Resp 18bpm; Pulse Ox 92% 2 lpm Nasal Cannula; Temp jjr 98.6F Oral; Pain 0/10; jjr MTDD
[2016-06-12 15:40] VITALS: BP 122/59
[2016-06-12] MEDS ORDERED: WARFARIN SOD 5 MG TAB PO SCH (17:00)
[2016-06-12] MEDS ORDERED: WARFARIN SOD 7.5 MG TAB PO ONE (17:00)
[2016-06-12] MEDS: NYSTATIN 500,000 U/5 ML SUSP UDC SS SCH ×2 (17:11→20:05)
[2016-06-12] MEDS: HumaLOG INSULIN (NovoLOG) PER UNIT SC SCH ×2 (17:11→21:00)
[2016-06-12 20:00] VITALS: BP 112/55
[2016-06-12] MEDS: traZODone 100 MG TAB PO SCH (20:05)
[2016-06-12] MEDS: DOCUSATE SODIUM 100 MG CAP PO SCH (20:05)
[2016-06-12] MEDS: GABAPENTIN 300 MG CAP PO SCH (20:05)
[2016-06-12] MEDS: SIMVASTATIN 10 MG TAB PO SCH (20:05)
[2016-06-12] MEDS: LORATADINE 10 MG TAB PO SCH (20:05)
[2016-06-12] MEDS: methylPREDNISolone INJ 125 MG/2 ML VIAL (J2930) IV SCH (20:06)
[2016-06-12] MEDS: ADVAIR DISKUS 250/50 INH PWD INH SCH (21:00)
[2016-06-12] MEDS: FLUTICASONE PROP 0.05% NASAL SPRAY 16 GM (FLONASE) SCH (21:01)
[2016-06-12] MEDS: ANEXSIA, NORCO 7.5MG/325MG TABLET(HYDROCODONE/APAP) PO PRN (21:29)
[2016-06-12] MEDS: IPRATROPIUM 0.5MG/ALBUTEROL 2.5MG INH SOL UD 3ML (DUONEB)(J7620) NEB SCH (21:46)
[2016-06-13] VITALS (7 sets, daily range): BP systolic 100–134; BP diastolic 53–68
[2016-06-13] MEDS: IPRATROPIUM 0.5MG/ALBUTEROL 2.5MG INH SOL UD 3ML (DUONEB)(J7620) NEB SCH ×7 (04:00→22:26)
[2016-06-13] MEDS: methylPREDNISolone INJ 125 MG/2 ML VIAL (J2930) IV SCH ×3 (04:45→20:33)
[2016-06-13 06:14] LABS: CALCIUM LEVEL 8.3 MG/DL (8.8-10.2); CREATININE FOR GFR 1.71 MG/DL (0.55-1.02); GLOMERULAR FILTRATION RATE 30.8 (>39); POTASSIUM SERUM 4.2 MEQ/L (3.5-5.1)
[2016-06-13 06:16] LABS: MEAN CORPUSCULAR HEMOGLOBIN 30.8 pg (27.0-33.0); MEAN CORPUSCULAR HGB CONC 32.3 g/dl (32.0-36.5); MEAN CORPUSCULAR VOLUME 95.5 fl (80.0-96.0); RED CELL DISTRIBUTION WIDTH 14.4 % (11.5-14.5); WHITE BLOOD COUNT 17.5 K/mm3 (4.0-10.0)
[2016-06-13 06:22] LABS: INR 1.42
[2016-06-13] MEDS: ANEXSIA, NORCO 7.5MG/325MG TABLET(HYDROCODONE/APAP) PO PRN (06:55)
[2016-06-13] MEDS: TIOTROPIUM INHALER/CAPSULE (SPIRIVA) INH SCH (07:30)
[2016-06-13] MEDS: FUROSEMIDE 20 MG TAB PO SCH (08:26)
[2016-06-13] MEDS: HumaLOG INSULIN (NovoLOG) PER UNIT SC SCH ×4 (08:26→20:45)
[2016-06-13] MEDS: oxyBUTYnin *DITROPAN XL* 5 MG TABCR PO SCH (08:26)
[2016-06-13] MEDS: MIRALAX *UNIT DOSE* 17GM PACKET PO SCH (08:26)
[2016-06-13] MEDS: FLUoxetine 20 MG CAP PO SCH (08:27)
[2016-06-13] MEDS: FERROUS SULFATE 325MG TAB PO SCH (08:27)
[2016-06-13] MEDS: NYSTATIN 500,000 U/5 ML SUSP UDC SS SCH ×4 (08:27→20:33)
[2016-06-13] MEDS: AZITHROMYCIN 250 MG TAB PO SCH (08:27)
[2016-06-13] MEDS: ASPIRIN 81 MG ENTERIC TAB PO SCH (08:27)
[2016-06-13] MEDS: GABAPENTIN 300 MG CAP PO SCH ×2 (08:27→20:33)
[2016-06-13] MEDS: DOCUSATE SODIUM 100 MG CAP PO SCH ×2 (08:28→20:33)
[2016-06-13] MEDS: PANTOPRAZOLE 40MG TAB (PROTONIX) PO SCH (08:28)
[2016-06-13] MEDS: amLODIPine 10 MG TAB PO SCH (08:28)
[2016-06-13] MEDS: ADVAIR DISKUS 250/50 INH PWD INH SCH ×2 (08:36→19:46)
--- NOTE | 2016-06-13 10:14 | ECGEPIP ---
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
[2016-06-13] MEDS: cefTRIAXone SOD 1 GM in D5W MINI-BAG PLUS 50 ML IV SCH (12:43)
--- NOTE | 2016-06-13 13:39 | IPNPDOC ---
Assessment/Plan Date Seen The patient was seen on 06/13/16. Problems Problems: (1) COPD exacerbation Status: Acute Problem Text: continue nebulizations, steroids, ceftriaxone and azithromycin continue advair and spiriva (2) Leucocytosis Status: Acute Problem Text: probably due to steroids. (3) Chronic respiratory failure with hypoxia Status: Chronic Problem Text: continue nasal canula (4) History of pulmonary embolism Status: Chronic Problem Text: has IVC filter in place also on coumadin , though at present inr subtherapeutic. (5) CKD (chronic kidney disease), stage III Status: Chronic Problem Text: stage 3 to 4 at baseline will continue to monitor. (6) Diabetes Status: Chronic (7) HTN (hypertension) Status: Chronic (8) Diastolic congestive heart failure Status: Chronic Response to Treatment: Stable Problem Text: continue lasix daily (9) GERD (gastroesophageal reflux disease) Status: Chronic (10) Depression Status: Chronic Problem Text: no suicidal ideas continue trazodone and prozac (11) CAD (coronary artery disease) Status: Chronic Problem Text: continue ASA and statin not on betablocker (12) Obesity Status: Chronic Plan / VTE VTE Prophylaxis Ordered?: Yes Plan Advance Directives: DNR Plan Text DNR and DNI patient and family requests to speak with hospice. Subjective Review of Systems CC/HPI The patient is a 75-year-old female admitted with a reason for visit of Copd Exacerbation. Events since last encounter feeling better this morning, says that SOB is better, no fever or chills, no chest pain , no cough, no abdominal pain , nausea or vomiting or diarrhea Objective Physical Examination General Exam: Positive: Alert, Cooperative, No Acute Distress Eye Exam: Positive: Conjunctiva & lids normal, EOMI, PERRLA, Negative: Sclera icteric ENT Exam: Positive: Atraumatic, Mucous membr. moist/pink Neck Exam: Negative: JVD Chest Exam: Positive: Diminished, Wheezing, Negative: Rales Heart Exam: Positive: Normal S1, Normal S2, Rate Normal Telemetry: Positive: Sinus Abdomen Exam: Positive: Normal bowel sounds, Soft, Negative: Tenderness Extremity Exam: Positive: Edema, Other (left calf noted to be larger than right , this is the patient's baseline. Ultrasound of the lower extremity is negative for DVT in the ER.) Vital Signs/I&O Vital Signs Date Time Temp Pulse Resp B/P Pulse Ox O2 Delivery O2 Flow Rate FiO2 06/13/16 12:00 96.3 79 20 134/63 89 Nasal Cannula 2.0 I&O- Last 24 Hours up to 6 AM 06/13/16 05:59 Intake Total 720 ml Output Total 400 ml Balance 320 ml Laboratory Data Labs 24H Laboratory Tests 2 06/12/16 16:32: Bedside Glucose (Misc Panel) 262H 06/12/16 20:04: Bedside Glucose (Misc Panel) 341H 06/13/16 05:06: Anion Gap 9, Blood Urea Nitrogen 30H, Creatinine 1.71H, Sodium Level 144, Potassium Level 4.2, Chloride Level 103, Carbon Dioxide Level 32, Calcium Level 8.3L, Glomerular Filtration Rate 30.8L, Prothromb Time International Ratio 1.42 , Prothrombin Time 17.5H CBC/BMP Laboratory Tests 06/13/16 05:06 Calcium Level 8.3 L, Red Blood Count 3.00 L, Mean Corpuscular Volume 95.5, Mean Corpuscular Hemoglobin 30.8, Mean Corpuscular Hemoglobin Concent 32.3, Red Cell Distribution Width 14.4 FSBS Laboratory Tests Test 06/12/16 16:32 06/12/16 20:04 Range/Units Bedside Glucose (Misc Panel) 262 341 83-110 MG/DL Microbiology Microbiology 06/12/16 Blood Culture - Preliminary, Resulted No growth after 24 hours . All specim... 06/12/16 Blood Culture - Preliminary, Resulted No growth after 24 hours . All specim... 06/12/16 Influenza Virus Type A Antigen - Final, Complete 06/12/16 Influenza Virus Type B Antigen - Final, Complete 06/12/16 Gram Stain - Final, Resulted 06/12/16 Sputum Culture, Resulted Pending LICO GARCIA MD Jun 13, 2016 13:39
[2016-06-13] MEDS: WARFARIN SOD 5 MG TAB PO SCH (17:06)
[2016-06-13] MEDS: traZODone 100 MG TAB PO SCH (20:33)
[2016-06-13] MEDS: LORATADINE 10 MG TAB PO SCH (20:33)
[2016-06-13] MEDS: SIMVASTATIN 10 MG TAB PO SCH (20:34)
[2016-06-13] MEDS: FLUTICASONE PROP 0.05% NASAL SPRAY 16 GM (FLONASE) SCH (20:34)
[2016-06-14] MEDS: cefTRIAXone SOD 1 GM in D5W MINI-BAG PLUS 50 ML IV SCH ×3 (00:54→23:07)
[2016-06-14] MEDS: methylPREDNISolone INJ 125 MG/2 ML VIAL (J2930) IV SCH (04:59)
[2016-06-14 06:00] VITALS: BP 128/61
[2016-06-14 06:23] LABS: MEAN CORPUSCULAR HEMOGLOBIN 30.4 pg (27.0-33.0); MEAN CORPUSCULAR HGB CONC 31.3 g/dl (32.0-36.5); MEAN CORPUSCULAR VOLUME 97.1 fl (80.0-96.0); RED CELL DISTRIBUTION WIDTH 14.6 % (11.5-14.5); WHITE BLOOD COUNT 16.5 K/mm3 (4.0-10.0)
[2016-06-14 06:30] LABS: INR 2.19
[2016-06-14 06:38] LABS: CALCIUM LEVEL 8.5 MG/DL (8.8-10.2); CREATININE FOR GFR 1.74 MG/DL (0.55-1.02); GLOMERULAR FILTRATION RATE 30.2 (>39); POTASSIUM SERUM 4.3 MEQ/L (3.5-5.1)
[2016-06-14] MEDS: IPRATROPIUM 0.5MG/ALBUTEROL 2.5MG INH SOL UD 3ML (DUONEB)(J7620) NEB SCH ×6 (08:00→22:56)
[2016-06-14] MEDS: NYSTATIN 500,000 U/5 ML SUSP UDC SS SCH ×4 (08:04→20:51)
[2016-06-14] MEDS: MIRALAX *UNIT DOSE* 17GM PACKET PO SCH (08:04)
[2016-06-14] MEDS: HumaLOG INSULIN (NovoLOG) PER UNIT SC SCH ×4 (08:04→20:51)
[2016-06-14] MEDS: FUROSEMIDE 20 MG TAB PO SCH (08:05)
[2016-06-14] MEDS: PANTOPRAZOLE 40MG TAB (PROTONIX) PO SCH (08:05)
[2016-06-14] MEDS: FLUoxetine 20 MG CAP PO SCH (08:05)
[2016-06-14] MEDS: GABAPENTIN 300 MG CAP PO SCH ×2 (08:05→20:51)
[2016-06-14] MEDS: oxyBUTYnin *DITROPAN XL* 5 MG TABCR PO SCH (08:05)
[2016-06-14] MEDS: DOCUSATE SODIUM 100 MG CAP PO SCH ×2 (08:06→20:51)
[2016-06-14] MEDS: ASPIRIN 81 MG ENTERIC TAB PO SCH (08:06)
[2016-06-14] MEDS: amLODIPine 10 MG TAB PO SCH (08:07)
[2016-06-14] MEDS: FERROUS SULFATE 325MG TAB PO SCH (08:07)
[2016-06-14] MEDS: AZITHROMYCIN 250 MG TAB PO SCH (08:07)
[2016-06-14] MEDS: ADVAIR DISKUS 250/50 INH PWD INH SCH ×2 (08:22→19:55)
[2016-06-14] MEDS: TIOTROPIUM INHALER/CAPSULE (SPIRIVA) INH SCH (08:22)
[2016-06-14] MEDS: methylPREDNISolone INJ 40 MG/1 ML VIAL (J2920) IV SCH ×2 (12:38→20:51)
[2016-06-14 14:00] VITALS: BP 130/59
[2016-06-14] MEDS: WARFARIN SOD 5 MG TAB PO SCH (16:20)
--- NOTE | 2016-06-14 16:26 | EDDOCDS ---
Nurse's Notes [facility] Name: Isidra Delacruz Age: 75 yrs Sex: Female : 1940 Arrival Date: 06/12/2016 Time: 09:29 Bed 18 Private MD: Diagnosis: Chronic obstructive pulmonary disease with acute lower respiratory infection Presentation: 06/12 09:39 Presenting complaint: Patient states: intermittent substernal chest pain radiating to jjr left anterior chest for past 2 hours, recent discharge from [facility] with copd exacerbation. Aspirin was not taken prior to arrival. Adult Sepsis Screening: The patient does not have new or worsening altered mentation. Patient has a respiratory rate of greater than or equal to 22 (1 point). Systolic blood pressure is greater than 100. Patient has a qSOFA score of 1- Negative Sepsis Screen. Suicide/Homicide risk assessment- the patient denies having any suicidal and/or homicidal ideations and does not present with any other emotional, behavioral or mental health complaints. 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 Transition of care: patient was not received from another setting of care. 09:39 Acuity: GALA Level 3 jjr 09:39 Method Of Arrival: Ambulance jjr Triage Assessment: 09:41 General: Appears in no apparent distress, Behavior is appropriate for age. jjr Cardiovascular: Chest pain radiates Does not radiate. episodes are intermittent began 2 hours prior to arrival. Historical: - Allergies: Amoxicillin (Hives); Lisinopril (Swelling); Oxycodone HClagitation; Temazepam (Swelling); SULFA (SULFONAMIDES) (Hives); - Home Meds: 1. [place] 7.5-325 mg Oral tab qid prn 2. albuterol sulfate 2.5 mg /3 mL (0.083 %) Inhl nebu 4 times per day (Last dose: 06/12/2016) 3. albuterol sulfate 90 mcg/actuation Inhl aepb every 4 hours (Last dose: 06/12/2016) 4. alendronate 70 mg oral tab once wkly Tuesday 5. amlodipine 10 mg Oral tab 1 tab once daily (Last dose: 06/12/2016) 6. aspirin 81 mg Oral chew once daily (Last dose: 06/12/2016) 7. Calcium + Vitamin D 5oo/200 Oral twice a day (Last dose: 06/12/2016) 8. Colace 100 mg oral tab 1 cap 2 times per day takes 1 daily as needed (Last dose: 06/12/2016) 9. erythromycin 5 mg/gram (0.5 %) Opht oint 6 times per day 10. ferrous sulfate 325 mg (65 mg iron) Oral cpER daily 11. fluoxetine 60 mg Oral tab once daily (Last dose: 06/12/2016) 12. fluticasone-salmeterol 45-21 mcg/actuation inhalation HFAA 2 puffs 2 times per day 13. fluticasone 50 mcg/actuation nasal spsn 2 sprays once daily (Last dose: 06/11/2016) 14. furosemide 60 mg Oral tab 1.5 tab once daily (Last dose: 06/12/2016) 15. gabapentin 600 mg Oral tab 1 tab bid (Last dose: 06/12/2016) 16. loratadine 10 mg Oral tab 1 tab once daily (Last dose: 06/11/2016) 17. magnesium oxide 500 mg Oral cap nightly (Last dose: 06/11/2016) 18. Nitrostat 0.4 mg SL subl every 5 minutes prn (Last dose: 06/12/2016) 19. nystatin 100,000 unit/mL Oral susp 10 mL 4 times per day 20. oxybutynin chloride 15 mg Oral tr24 once daily (Last dose: 06/12/2016) 21. Protonix 40 mg Oral TbEC 1 tab once daily (Last dose: 06/12/2016) 22. oxygen NC 2 liters continuous 23. polyethylene glycol 3350 17 gram/dose oral powd once daily (Last dose: 06/12/2016) 24. prednisone 10 mg Oral tab once daily (Last dose: 06/12/2016) 25. Advair Diskus 250-50 mcg/dose Inhl dsdv 2 times per day (Last dose: 06/11/2016) 26. simvastatin 10 mg Oral tab 1 tab once daily (Last dose: 06/11/2016) 27. Spiriva with HandiHaler 18 mcg Inhl CpDv 1 cap once daily (Last dose: 06/11/2016) 28. trazodone 100 mg Oral tab 2 tabs nightly (Last dose: 06/11/2016) 29. Coumadin 5 mg oral tab once daily (Last dose: 06/11/2016) - PMHx: Cancer, Breast - Left; Cancer, Breast - Right; CHF; GERD; PE; Anxiety; COPD; - PSHx: Mastectomy- Bilateral; Tubal ligation; Ankle Arthroplasty, Left; Shoulder Arthroplasty, Left; lumbar surgery; - Social history: Smoking status: Patient states former smoker of tobacco. No barriers to communication noted, The patient speaks fluent [place]. - : The pt / caregiver states he / she is on anticoagulants: coumadin. Home medication list is obtained from a discharge med list. - Exposure Risk Screening:: None identified. Screenin:31 Infection Control. deg 10:28 Fall Risk. jjr 10:28 Screening information is obtained from the patient. Fall risk: At risk due to age, The jjr following interventions are performed due to a positive Fall Risk Screen: Fall Alert bracelet is placed on the patient. Abuse/DV Screen: The patient / caregiver reports he/she is: not in a situation that causes fear, pain or injury. Nutritional screening: No deficits noted. Advance Directives: There is an active DNR order and the pt has a copy here at this time. home support is adequate. 10:36 Assistance ADL's: Requires assistance with meal preparation, this assistance is jjr provided by family members, bathing, assistance is provided by family members, dressing, assistance is provided by family members, toileting, assistance is provided by family members, housework, assistance is provided by family members, medication administration, assistance is provided by family members. Assessment: 10:18 Neurological: No deficits noted. Cardiovascular: Rhythm is sinus rhythm Chest pain jjr quality is stabbing, is located in substernal area episodes last 2-3 minutes. Respiratory: Airway is patent Respiratory effort is even, unlabored, Respiratory pattern is tachypnea. Derm: Skin is fragile, with poor turgor. 10:31 Cardiovascular: Edema is 1+ to left ankle. jjr 11:07 General: reports another episode of sharp substernal pain radiating to right anterior jjr chest lasting less than 2 minutes while in US, no chest pain currently, family at bedside. Cardiovascular: Rhythm is sinus rhythm with unifocal PVCs. Respiratory: Airway is patent Respiratory effort is even, unlabored. Derm: Skin is pink, warm & dry. 12:08 General: Appears in no apparent distress, Behavior is appropriate for age. jjr Neurological: No deficits noted. Cardiovascular: Rhythm is sinus rhythm. Respiratory: Airway is patent Respiratory effort is even, unlabored, Respiratory pattern is regular. Derm: Skin is pink, warm & dry. 12:17 General: this nurse told by dgtr as she is exiting room that patient is having jjr sharpness to substernal chest, provider informed will continue to monitor as other 2 episodes reported to this automotive service writer have lasted less than 2 minutes with no changes noted to electronic device monitor. 12:25 General: pt now reporting decreased chest pain. jjr 12:42 General: called to room by family - daughters at bedside report mother is "shaking all pml over" in to assess pt. pt with scant tremor noted and as this automotive service writer approached bedside pt began to shake violently all over the bed, lasting approx 5 seconds with no residual change in mental status. pt was immediately alert and oriented answering questions appropriately with clear speech following event. admitting md aware. 12:53 General: hospitalist to bedside. jjr 13:30 General: Appears in no apparent distress, sitting on edge of stretcher, tolerated lunch jjr tray and requesting coffee, family at bedside. Neurological: No deficits noted. Respiratory: Airway is patent Respiratory effort is even, unlabored, Respiratory pattern is regular. Derm: Skin is pink, warm & dry. 14:26 General: Appears in no apparent distress, dgtr reports another shaking episode occurred jjr and she assisted her from edge of bed to supine with rails up, pt denies pain at this time. Neurological: No deficits noted. Cardiovascular: Rhythm is sinus rhythm. Respiratory: Airway is patent Respiratory effort is even, unlabored, Respiratory pattern is regular. Derm: Skin is pink, warm & dry. 15:24 General: Appears in no apparent distress, no change from prior assessments. jjr Vital Signs: 09:46 BP 141 / 82; Pulse 95; Resp 24; Temp 96.9(O); Pulse Ox 91% on 2 lpm NC; Weight 86.18 jml1 kg; Height 5 ft. 2 in. (157.48 cm); Pain 8/10; 09:59 BP 203 / 86 (auto/); jjr 09:59 Pulse 82 MON; Pulse Ox 91% ; jjr 10:14 BP 178 / 81 (auto/); jjr 10:14 Pulse 86 MON; Pulse Ox 91% ; jjr 10:44 BP 185 / 81 (auto/); jjr 10:44 Pulse 76 MON; Pulse Ox 88% ; jjr 10:49 Pulse 74 MON; Pulse Ox 91% on 2 lpm NC; jjr 11:14 BP 138 / 63 (auto/); jjr 11:14 Pulse 74 MON; Resp 24; Pulse Ox 98% ; jjr 11:44 BP 146 / 67 (auto/); jjr 11:44 Pulse 84 MON; Resp 24; Pulse Ox 90% on 2 lpm NC; jjr 12:13 Pulse 100 MON; Pulse Ox 88% ; jjr 12:14 BP 117 / 91 (auto/); jjr 12:44 BP 126 / 60 (auto/); jjr 12:44 Pulse 94 MON; Resp 20; Pulse Ox 89% on 2 lpm NC; jjr 14:24 BP 129 / 75 (auto/); jjr 14:24 Pulse 80 MON; jjr 14:26 BP 129 / 75; Pulse 81; Resp 24; Temp 98.6(O); Pulse Ox 92% on 2 lpm NC; Pain 0/10; jjr 15:19 Pulse 80 MON; jjr 15:21 BP 137 / 62 (auto/); Resp 24; Pulse Ox 90% on 2 lpm NC; jjr 09:46 Body Mass Index 34.75 (86.18 kg, 157.48 cm) jml1 Vitals: 15:25 Log In Time N/A - ambulance arrival. jjr ED Course: 09:31 Patient visited by Tory Arizmendi, Tosser. deg 09:31 Patient moved to Waiting deg 09:33 Wendy Isaac, RN is Primary Nurse. pml 09:33 Larissa Mckeon MD is Attending Physician. sd1 09:33 Patient visited by Larissa Mckeon MD. sd1 09:33 Patient moved to 18 pml 09:40 Triage Initiated jjr 09:47 Patient visited by Korey Williamson. jml1 09:50 EKG done. (by ED staff). Reviewed by Larissa Mckeon MD. jlf 09:56 Patient visited by Ruben Hernandez PCA. jlf 09:57 Patient visited by Ruben Hernandez PCA. jlf 09:58 Patient visited by Ruben Hernandez PCA. jlf 09:58 Pt greeted and oriented to ED. Patient advised of names of staff involved in care, jlf location of call forrester, wait times and NPO status. electronic device monitor on. Pulse ox on. NIBP on. 10:23 Chest, 1 View Returned. EDMS 10:28 Maintain field IV. Dressing intact. Site clean & dry. Gauge & site: 20 gauge left AC. jjr O2 via nasal cannula \\T\\ 2L/min. 10:32 Patient moved to Ultrasound am10 10:37 Sputum Culture & Gram Stain Sent. jml1 10:37 -Blood Culture Sent. jml1 10:40 -Arterial Blood Gas Sent. js11 10:54 Patient moved to 18 am10 11:08 Patient visited by Wendy Isaac RN. jjr 11:21 -Influenza A&B Rapid Antigen - Nose Sent. jjr 11:34 US Lower Extremity R/O DVT Returned. EDMS 11:38 Lactic Acid (Laird tube on ice) Sent. jjr 11:38 DIFFERENTIAL NO CHARGE Sent. jjr 12:08 Patient visited by Wendy Isaac RN. jjr 12:14 Zain Moore is Hospitalizing Provider. sd1 12:21 Notified attending ED physician of Critical lab value. lactic 2.3. pml 12:41 T-Sheet-- Draft Copy was scanned into [employer] and attached to record. seh 12:47 CT Head Without Contrast Returned. EDMS 13:30 Patient visited by Wendy Isaac RN. jjr 14:27 No procedures done that require assistance. jjr 15:19 [facility] Payment Agreement was scanned into [employer] and attached to record. mm15 15:25 Patient visited by Wendy Isaac RN. jjr 15:25 The patient / caregiver is instructed regarding the plan of care and ED course. jjr Administered Medications: 10:18 Drug: Solu-MEDROL 125 mg [Solu-Medrol 500 mg intravenous solution (125 mg)] Route: IVP; jjr Site: left antecubital; 11:00 Drug: Albuterol-Ipratropium 1 neb [ipratropium-albuterol 0.5 mg-3 mg(2.5 mg base)/3 mL js11 nebulization soln (1 neb)] Route: Nebulizer; 11:18 Drug: Albuterol-Ipratropium 1 neb [ipratropium-albuterol 0.5 mg-3 mg(2.5 mg base)/3 mL js11 nebulization soln (1 neb)] Route: Nebulizer; 11:32 Drug: Albuterol-Ipratropium 1 neb [ipratropium-albuterol 0.5 mg-3 mg(2.5 mg base)/3 mL js11 nebulization soln (1 neb)] Route: Nebulizer; 12:07 Drug: cefTRIAXone 1 grams [ceftriaxone 1 gram solution for injection] Route: IVPB; jjr Infused Over: 30 mins; Site: left antecubital; Delivery: Syringe pump; 12:31 Follow up: IV Status: Completed infusion; IV Intake: 10ml jjr 12:32 Drug: azithromycin 500 mg [azithromycin 500 mg intravenous solution] Route: IVPB; jjr Infused Over: 1 hrs; Site: left antecubital; 13:34 Follow up: IV Status: Completed infusion; IV Intake: 250ml jjr Intake: 12:31 IV: 10.00ml; Total: 10.00ml. jjr 13:34 IV: 250.00ml; Total: 260.00ml. jjr RT: 10:40 ABG's drawn from left radial artery allens test done and positive pressure held for 5 js11 minutes no bleeding noted specimen sent pt. tolerated well. 11:00 Initial Med Neb Given as ordered Patient was instructed and evaluated on procedure js11 Patient tolerated procedure well without adverse effect. Respiratory: Breath sounds are diminished bilaterally. 11:19 Subsequent Med Neb Given as ordered Patient tolerated procedure well without adverse js11 effect. Respiratory: Breath sounds are diminished bilaterally. 11:32 Subsequent Med Neb Given as ordered Patient tolerated procedure well without adverse js11 effect. Respiratory: Breath sounds are diminished bilaterally. Order Results: Lab Order: -Arterial Blood Gas; SPEC'M 06/12/16 10:32 Test: ABG pH (ARTERIAL); Value: 7.461; Range: 7.350-7.450; Abnormal: Above high normal; Units: UNITS; Status: F Test: ABG PARTIAL PRESSURE CO2; Value: 47.3; Range: 35.0-45.0; Abnormal: Above high normal; Units: mmHg; Status: F Test: ABG PARTIAL PRESSURE O2; Value: 59.2; Range: 75.0-100.0; Abnormal: Below low normal; Units: mmHg; Status: F Test: ABG TOTAL CO2; Value: 34.4; Range: 23.0-31.0; Abnormal: Above high normal; Units: MEQ/L; Status: F Test: ABG HCO3; Value: 33.0; Range: 22.0-26.0; Abnormal: Above high normal; Units: MEQ/L; Status: F Test: ABG BASE EXCESS; Value: 8.1; Range: -2.0-2.0; Abnormal: Above high normal; Status: F Test: ABG STANDARD HCO3; Value: 31.8; Range: 22.0-26.0; Abnormal: Above high normal; Units: MEQ/L; Status: F Test: ABG O2 SATURATION; Value: 92.2; Range: 95.0-99.0; Abnormal: Below low normal; Units: %; Status: F Test: ABG DEVICE; Value: NASAL CARLOS; Status: F Lab Order: B-Type Natiuretic Peptide; SPEC' 06/12/16 09:59 Test: BRAIN NATRIURETIC PEPTIDE; Value: 133; Range: <100; Abnormal: Above high normal; Units: PG/ML; Status: F Lab Order: Basic Metabolic Profile; SPEC' 06/12/16 09:59 Test: GLUCOSE, FASTING; Value: 165; Range: 83-110; Abnormal: Above high normal; Units: MG/DL; Status: F Test: BLOOD UREA NITROGEN; Value: 27; Range: 7-18; Abnormal: Above high normal; Units: MG/DL; Status: F Test: CREATININE FOR GFR; Value: 1.74; Range: 0.55-1.02; Abnormal: Above high normal; Units: MG/DL; Status: F Test: GLOMERULAR FILTRATION RATE; Value: 30.2; Range: >39; Abnormal: Below low normal; Status: F Test: SODIUM LEVEL; Value: 145; Range: 136-145; Units: MEQ/L; Status: F Test: POTASSIUM SERUM; Value: 3.9; Range: 3.5-5.1; Units: MEQ/L; Status: F Test: CHLORIDE LEVEL; Value: 103; Range: 98-107; Units: MEQ/L; Status: F Test: CARBON DIOXIDE LEVEL; Value: 32; Range: 21-32; Units: MEQ/L; Status: F Test: ANION GAP; Value: 10; Range: 8-16; Units: MEQ/L; Status: F Test: CALCIUM LEVEL; Value: 8.8; Range: 8.8-10.2; Units: MG/DL; Status: F Test Note: ; Units are mL/min/1.73 m2 Chronic Kidney Disease Staging per NKF: Stage I & II GFR >=60 Normal to Mildly Decreased Stage III GFR 30-59 Moderately Decreased Stage IV GFR 15-29 Severely Decreased Stage V GFR <15 Very Little GFR Left ESRD GFR <15 on REFRIGERATION SUPERVISOR Lab Order: CBC with Diff; SPEC'M 06/12/16 09:59 Test: WHITE BLOOD COUNT; Value: 20.8; Range: 4.0-10.0; Abnormal: Above high normal; Units: K/mm3; Status: F Test: RED BLOOD COUNT; Value: 3.57; Range: 4.00-5.40; Abnormal: Below low normal; Units: M/mm3; Status: F Test: HEMOGLOBIN; Value: 10.8; Range: 12.0-16.0; Abnormal: Below low normal; Units: g/dl; Status: F Test: HEMATOCRIT; Value: 34.1; Range: 36.0-47.0; Abnormal: Below low normal; Units: %; Status: F Test: MEAN CORPUSCULAR VOLUME; Value: 95.7; Range: 80.0-96.0; Units: fl; Status: F Test: MEAN CORPUSCULAR HEMOGLOBIN; Value: 30.2; Range: 27.0-33.0; Units: pg; Status: F Test: MEAN CORPUSCULAR HGB CONC; Value: 31.6; Range: 32.0-36.5; Abnormal: Below low normal; Units: g/dl; Status: F Test: RED CELL DISTRIBUTION WIDTH; Value: 15.3; Range: 11.5-14.5; Abnormal: Above high normal; Units: %; Status: F Test: PLATELET COUNT, AUTOMATED; Value: 252; Range: 150-450; Units: k/mm3; Status: F Test: NEUTROPHILS; Value: 88; Range: 35-75; Abnormal: Above high normal; Units: %; Status: F Test: BANDS; Value: 7; Range: < 11; Units: %; Status: F Test: LYMPHOCYTES; Value: 2; Range: 16-52; Abnormal: Below low normal; Units: %; Status: F Test: MONOCYTES; Value: 3; Range: 0-8; Units: %; Status: F Test: POIKILOCYTOSIS; Value: 1+; Status: F Test: ANISOCYTOSIS; Value: 1+; Status: F Test: MICROCYTOSIS; Value: 1+; Status: F Lab Order: Cardiac Injury Profile; [facility] 06/12/16 09:59 Test: CPK CREATINE PHOSPHOKINASE; Value: 40; Range: 26-192; Units: U/L; Status: F Test: CK-MB VALUE MASS; Value: 1.0; Range: 0.0-3.6; Units: NG/ML; Status: F Test: MB/CK RELATIVE INDEX; Value: 2.50; Range: < OR =4; Status: F Test Note: ; DIAGNOSIS CRITERIA MMB ng/ml Relative Index (RI) NON-AMI < or = 5 N/A LAIRD ZONE > 5 < or = 4 AMI > 5 > 4 Lab Order: Troponin; [facility] 06/12/16 09:59 Test: TROPONIN I; Value: < 0.02; Range: < 0.10; Units: NG/ML; Status: F Test Note: ; Troponin I Reference Interval for [employer] LOCI: 99th Percentile= 0.00-0.045 ng/ml Risk Stratification: <= 0.10 ng/ml Decreased Risk for Adverse Clinical Events. 0.10-1.50 ng/ml Increased Risk for Adverse Clinical Events. Evaluation of additional criterion and/or repeat testing in 2-6 hours is suggested to rule out myocardial damage. >= 1.50 ng/ml Indicative of Myocardial Injury. Lab Order: Sputum Culture & Gram Stain; [facility] 06/12/16 10:33 Test: GRAM STAIN; Value: GRAM STAIN RESULT; Status: F Test: GRAM STAIN; Value: QUALITY: GOOD; Status: F Test: GRAM STAIN; Value: MANY WBCS; Status: F Test: GRAM STAIN; Value: FEW EPITHELIAL CELLS; Status: F Test: GRAM STAIN; Value: MANY GRAM POSITIVE COCCI IN PAIRS, CHAINS AND CLUSTERS; Status: F Test: GRAM STAIN; Value: MODERATE GRAM POSITIVE RODS; Status: F Test: GRAM STAIN; Value: FEW YEAST LIKE ORGANISM; Status: F Lab Order: PT/INR; SPEC'M 06/12/16 09:59 Test: PROTHROMBIN TIME; Value: 16.5; Range: 12.3-14.5; Abnormal: Above high normal; Units: SECONDS; Status: F Test: INR; Value: 1.32; Status: F Test Note: ; THERAPUTIC HUMAN INR VALUES INDICATIONS NORMAL RANGES PROPHYLAXIS/TREATMENT OF: VENOUS THROMBOSIS 2.0-3.0 PULMONARY EMBOLISM 2.0-3.0 PREVENTION OF SYSTEMIC EMBOLISM FROM: TISSUE HEART VALVES 2.0-3.0 ACUTE MYOCARDIAL INFARCTION 2.0-3.0 VALVULAR HEART DISEASE 2.0-3.0 ATRIAL FIBRILLATION 2.0-3.0 MECHANICAL VALVES(HIGH RISK) 2.5-3.5 RECURRENT MYOCARDIAL INFARCTION 2.5-3.5 Lab Order: PLATELET ESTIMATE; SPEC'M 06/12/16 09:59 Test: PLATELET ESTIMATE; Value: NORMAL; Range: NORMAL; Status: F Lab Order: -Influenza A&B Rapid Antigen - Nose; SPEC'M 06/12/16 11:20 Test: INFLUENZA A RAPID SCR by ICA; Value: INFLUENZA A RESULTS NEGATIVE; Status: F Test: INFLUENZA A RAPID SCR by ICA; Value: Comments:; Status: F Test: INFLUENZA B RAPID SCR by ICA; Value: INFLUENZA B RESULTS NEGATIVE; Status: F Test Note: ; The Influenza test is a direct rapid immunoassay for the qualitative detection of Influenza viral antigen. Cell culture (Viral Culture) testing should be considered to confirm NEGATIVE results and to assist in detecting other viruses that can provide similar clinical symptoms. Please contact the lab within 24 hours ([phone]) if confirmatory testing is desired. Lab Order: Lactic Acid (Laird tube on ice); SPEC'M 06/12/16 11:37 Test: LACTIC ACID LEVEL, LACTATE; Value: 2.3; Range: 0.4-2.0; Abnormal: Above upper panic limits; Units: MMOL/L; Status: F Lab Order: MAGNESIUM LEVEL; SPEC'M 06/12/16 09:59 Test: MAGNESIUM LEVEL; Value: 1.8; Range: 1.8-2.4; Units: MG/DL; Status: F Radiology Order: Chest, 1 View Test: Chest, 1 View REASON FOR EXAMINATION: Shortness of Breath; Clinical: Shortness of breath .; ; Comparison: 05/27/2016 .; ; Findings:; The mediastinum and cardiac silhouette are stable and within normal limits for; portable technique. The lung crump are clear without acute consolidation,; effusion, or pneumothorax. Skeletal structures are intact.; ; Impression:; Normal portable chest x-ray; ; ; Signed by; Abisai Reyes MD 06/12/2016 10:04 A; Radiology Order: US Lower Extremity R/O DVT Test: US Lower Extremity R/O DVT REASON FOR EXAMINATION: swelling; Clinical: Pain and swelling with shortness of breath .; ; Technique: Laird scale and color Doppler evaluation using linear high frequency; transducer.; ; Findings:; Ultrasound examination of the left lower extremity deep venous structures from; the common femoral vein to the popliteal vein demonstrates normal compressibility; flow and wave patterns in response to respiration and augmentation. There is no; evidence for deep venous thrombosis.; ; Impression:; No evidence for deep venous thrombosis.; ; ; Signed by; Abisai Reyes MD 06/12/2016 10:56 A; Radiology Order: CT Head Without Contrast Test: CT Head Without Contrast REASON FOR EXAMINATION: ?seizure; Clinical: Seizures.; ; Comparison: 11/25/2014 .; ; Findings:; Age-related atrophy and microvascular ischemic changes are appreciated along with; chronic scattered parenchymal calcifications. The ventricles and sulci are; symmetric. Laird-white differentiation is maintained. There is no evidence for; acute intracranial hemorrhage, mass/mass effect, pathology or infarction. No; extra-axial fluid collection. Calvarium is intact. Paranasal sinuses and; mastoid air cells are clear.; ; Impression:; Age related atrophy and microvascular ischemic changes.; No acute intracranial hemorrhage, infarction, or mass/mass effect.; ; ; Signed by; Abisai Reyes MD 06/12/2016 12:06 P; Outcome: 12:14 Decision to Hospitalize by Provider. sd1 15:24 Discharge Assessment: patient administered narcotics - no. The following High Risk jjr Discharge criteria are identified: None. Admitted to PCU accompanied by nurse, accompanied by tech, family with patient, via stretcher, with oxygen, on monitor, with chart. Condition: stable. CT Study completed. Property :Personal belongings accompany Pt. 15:25 Patient left the ED. jjr Signatures: Dispatcher [employer] EDMS Larissa Mckeon MD MD sd1 Tory Arizmendi, Tosser Unit deg Gretchen Gil am10 Wendy Isaac, RN RN jjr Ari Galeana js11 Korey Williamson jml1 Abbie EstradaRN RN Jose Antonio Arcos mm15 Ruben Hernandez, ANISHA ZIPPER JOINER Larissa Huang Corrections: (The following items were deleted from the chart) 10:27 09:41 Social history Smoking status: Patient uses tobacco products, current every day jjr smoker. No barriers to communication noted, The patient speaks fluent [place], jr 14:27 14:26 BP 129 / 75; Pulse 81bpm; Resp 18bpm; Pulse Ox 92% 2 lpm Nasal Cannula; Temp jjr 98.6F Oral; Pain 0/10; jjr Chart Complete MTDD
--- NOTE | 2016-06-14 16:26 | EDDOCDS ---
Physician Documentation [facility] Name: Isidra Delacruz Age: 75 yrs Sex: Female : 1940 Arrival Date: 06/12/2016 Time: 09:29 Bed 18 Private MD: Disposition: 06/12/16 12:14 Hospitalization ordered by Zain Moore for Inpatient Admission. Preliminary diagnosis is Chronic obstructive pulmonary disease with acute lower respiratory infection. - [facility] - Status is Inpatient Admission. jjr - Condition is Stable. - Problem is an acute exacerbation. - Symptoms have improved. Historical: - Allergies: Amoxicillin (Hives); Lisinopril (Swelling); Oxycodone HClagitation; Temazepam (Swelling); SULFA (SULFONAMIDES) (Hives); - Home Meds: 1. [place] 7.5-325 mg Oral tab qid prn 2. albuterol sulfate 2.5 mg /3 mL (0.083 %) Inhl nebu 4 times per day (Last dose: 06/12/2016) 3. albuterol sulfate 90 mcg/actuation Inhl aepb every 4 hours (Last dose: 06/12/2016) 4. alendronate 70 mg oral tab once wkly Tuesday 5. amlodipine 10 mg Oral tab 1 tab once daily (Last dose: 06/12/2016) 6. aspirin 81 mg Oral chew once daily (Last dose: 06/12/2016) 7. Calcium + Vitamin D 5oo/200 Oral twice a day (Last dose: 06/12/2016) 8. Colace 100 mg oral tab 1 cap 2 times per day takes 1 daily as needed (Last dose: 06/12/2016) 9. erythromycin 5 mg/gram (0.5 %) Opht oint 6 times per day 10. ferrous sulfate 325 mg (65 mg iron) Oral cpER daily 11. fluoxetine 60 mg Oral tab once daily (Last dose: 06/12/2016) 12. fluticasone-salmeterol 45-21 mcg/actuation inhalation HFAA 2 puffs 2 times per day 13. fluticasone 50 mcg/actuation nasal spsn 2 sprays once daily (Last dose: 06/11/2016) 14. furosemide 60 mg Oral tab 1.5 tab once daily (Last dose: 06/12/2016) 15. gabapentin 600 mg Oral tab 1 tab bid (Last dose: 06/12/2016) 16. loratadine 10 mg Oral tab 1 tab once daily (Last dose: 06/11/2016) 17. magnesium oxide 500 mg Oral cap nightly (Last dose: 06/11/2016) 18. Nitrostat 0.4 mg SL subl every 5 minutes prn (Last dose: 06/12/2016) 19. nystatin 100,000 unit/mL Oral susp 10 mL 4 times per day 20. oxybutynin chloride 15 mg Oral tr24 once daily (Last dose: 06/12/2016) 21. Protonix 40 mg Oral TbEC 1 tab once daily (Last dose: 06/12/2016) 22. oxygen NC 2 liters continuous 23. polyethylene glycol 3350 17 gram/dose oral powd once daily (Last dose: 06/12/2016) 24. prednisone 10 mg Oral tab once daily (Last dose: 06/12/2016) 25. Advair Diskus 250-50 mcg/dose Inhl dsdv 2 times per day (Last dose: 06/11/2016) 26. simvastatin 10 mg Oral tab 1 tab once daily (Last dose: 06/11/2016) 27. Spiriva with HandiHaler 18 mcg Inhl CpDv 1 cap once daily (Last dose: 06/11/2016) 28. trazodone 100 mg Oral tab 2 tabs nightly (Last dose: 06/11/2016) 29. Coumadin 5 mg oral tab once daily (Last dose: 06/11/2016) - PMHx: Cancer, Breast - Left; Cancer, Breast - Right; CHF; GERD; PE; Anxiety; COPD; - PSHx: Mastectomy- Bilateral; Tubal ligation; Ankle Arthroplasty, Left; Shoulder Arthroplasty, Left; lumbar surgery; - Social history: Smoking status: Patient states former smoker of tobacco. No barriers to communication noted, The patient speaks fluent Romanian. - : The pt / caregiver states he / she is on anticoagulants: coumadin. Home medication list is obtained from a discharge med list. - Exposure Risk Screening:: None identified. Vital Signs: 06/12 09:46 BP 141 / 82; Pulse 95; Resp 24; Temp 96.9(O); Pulse Ox 91% on 2 lpm NC; Weight 86.18 kg jml1 / 189.99 lbs; Height 5 ft. 2 in. (157.48 cm); Pain 8/10; 09:59 BP 203 / 86 (auto/); jjr 09:59 Pulse 82 MON; Pulse Ox 91% ; jjr 10:14 BP 178 / 81 (auto/); jjr 10:14 Pulse 86 MON; Pulse Ox 91% ; jjr 10:44 BP 185 / 81 (auto/); jjr 10:44 Pulse 76 MON; Pulse Ox 88% ; jjr 10:49 Pulse 74 MON; Pulse Ox 91% on 2 lpm NC; jjr 11:14 BP 138 / 63 (auto/); jjr 11:14 Pulse 74 MON; Resp 24; Pulse Ox 98% ; jjr 11:44 BP 146 / 67 (auto/); jjr 11:44 Pulse 84 MON; Resp 24; Pulse Ox 90% on 2 lpm NC; jjr 12:13 Pulse 100 MON; Pulse Ox 88% ; jjr 12:14 BP 117 / 91 (auto/); jjr 12:44 BP 126 / 60 (auto/); jjr 12:44 Pulse 94 MON; Resp 20; Pulse Ox 89% on 2 lpm NC; jjr 14:24 BP 129 / 75 (auto/); jjr 14:24 Pulse 80 MON; jjr 14:26 BP 129 / 75; Pulse 81; Resp 24; Temp 98.6(O); Pulse Ox 92% on 2 lpm NC; Pain 0/10; jjr 15:19 Pulse 80 MON; jjr 15:21 BP 137 / 62 (auto/); Resp 24; Pulse Ox 90% on 2 lpm NC; jjr 09:46 Body Mass Index 34.75 (86.18 kg, 157.48 cm) jml1 MDM: 09:34 ECG WITH READING ER PHYS+CARDIAG ordered. EDMS 09:52 Solu-MEDROL 125 mg IVP once ordered. sd1 09:52 -Blood Culture (Adults Only), peripheral from different site, or from device/port/PICC sd1 etc. if present ordered. 09:52 Call Respiratory ordered. sd1 09:52 Hardscape Foreman/Pulse Ox/q 15 min VS ordered. sd1 09:52 IV Saline Lock ordered. sd1 09:52 Oxygen at 4L/Min NC or Home dosage ordered. sd1 09:52 Rhythm Strip to chart ordered. sd1 09:52 Albuterol-Ipratropium 1 neb Nebulizer every 20 minutes x3 ordered. sd1 09:52 -Arterial Blood Gas Ordered. EDMS 09:52 B-Type Natiuretic Peptide Ordered. EDMS 09:52 Basic Metabolic Profile Ordered. EDMS 09:52 CBC with Diff Ordered. EDMS 09:52 Cardiac Injury Profile Ordered. EDMS 09:52 Troponin Ordered. EDMS 09:52 -Blood Culture Ordered. EDMS 09:53 Chest, 1 View Ordered. EDMS 09:53 BED REQUEST+ADM ordered. EDMS 09:56 -Blood Culture (Adults Only), peripheral from different site, or from device/port/PICC deg etc. if present complete. 09:56 Call Respiratory complete. deg 09:56 BLOOD CULTURES Ordered. EDMS 10:03 Sputum Culture & Gram Stain Ordered. EDMS 10:04 PT/INR Ordered. EDMS 10:12 US Lower Extremity R/O DVT Ordered. EDMS 10:57 DIFFERENTIAL NO CHARGE Ordered. EDMS 10:57 PLATELET ESTIMATE Ordered. EDMS 11:04 Financial registration complete. mm15 11:06 -Arterial Blood Gas Reviewed. sd1 11:06 B-Type Natiuretic Peptide Reviewed. sd1 11:06 Basic Metabolic Profile Reviewed. sd1 11:06 CBC with Diff Reviewed. sd1 11:06 PT/INR Reviewed. sd1 11:06 Cardiac Injury Profile Reviewed. sd1 11:06 Troponin Reviewed. sd1 11:06 Chest, 1 View Reviewed. sd1 11:10 -Influenza A&B Rapid Antigen - Nose Ordered. EDMS 11:25 Lactic Acid (Laird tube on ice) Ordered. EDMS 11:41 CBC with Diff Reviewed. sd1 11:41 PLATELET ESTIMATE Reviewed. sd1 11:41 US Lower Extremity R/O DVT Reviewed. sd1 11:43 cefTRIAXone 1 grams IVPB once over 30 mins; dilute in 50mL of NS or D5W ordered. sd1 11:43 azithromycin 500 mg IVPB once over 1 hrs; dilute in 250mL of D5W or NS ordered. sd1 11:49 CT Head Without Contrast Ordered. EDMS 12:00 -Influenza A&B Rapid Antigen - Nose Reviewed. sd1 12:12 CONSISTENT CARBOHYDRATE+DIET ordered. EDMS 12:41 T-Sheet-- Draft Copy was scanned into [employer] and attached to record. [facility] 13:22 Admission / Observation Status ordered. EDMS 13:23 CONSISTENT CARBOHYDRATES ordered. EDMS 15:19 [facility] Payment Agreement was scanned into [employer] and attached to record. mm15 Administered Medications: 10:18 Drug: Solu-MEDROL 125 mg [Solu-Medrol 500 mg intravenous solution (125 mg)] Route: IVP; jjr Site: left antecubital; 11:00 Drug: Albuterol-Ipratropium 1 neb [ipratropium-albuterol 0.5 mg-3 mg(2.5 mg base)/3 mL js11 nebulization soln (1 neb)] Route: Nebulizer; 11:18 Drug: Albuterol-Ipratropium 1 neb [ipratropium-albuterol 0.5 mg-3 mg(2.5 mg base)/3 mL js11 nebulization soln (1 neb)] Route: Nebulizer; 11:32 Drug: Albuterol-Ipratropium 1 neb [ipratropium-albuterol 0.5 mg-3 mg(2.5 mg base)/3 mL js11 nebulization soln (1 neb)] Route: Nebulizer; 12:07 Drug: cefTRIAXone 1 grams [ceftriaxone 1 gram solution for injection] Route: IVPB; jjr Infused Over: 30 mins; Site: left antecubital; Delivery: Syringe pump; 12:31 Follow up: IV Status: Completed infusion; IV Intake: 10ml jjr 12:32 Drug: azithromycin 500 mg [azithromycin 500 mg intravenous solution] Route: IVPB; jjr Infused Over: 1 hrs; Site: left antecubital; 13:34 Follow up: IV Status: Completed infusion; IV Intake: 250ml jjr Signatures: Dispatcher [employer] EDMS Larissa Mckeon MD MD sd1 Murray, Denise, Box Maker [employer] Unit deg Morris RIOS, LEYDA Alvarenga RN Wendy Whittington RN RN jjr McGrath, Marlynn mm15 Larissa Abrams Jordan js11 The chart was reviewed and I authenticate all verbal orders and agree with the evaluation and treatment provided.Corrections: (The following items were deleted from the chart) 10:27 09:41 Social history Smoking status: Patient uses tobacco products, current every day daniellaswati smoker. No barriers to communication noted, The patient speaks fluent Romanian, daniellaswati 12:25 12:04 MAGNESIUM LEVEL+LAB ordered. EDMS EDMS Attachments: 12:41 T-Sheet-- Draft Copy [facility] 15:19 [facility] Payment Agreement mm15 Chart Complete MTDD
--- NOTE | 2016-06-14 16:26 | EDDOCDS ---
Physician Documentation [facility] Name: Isidra Delacruz Age: 75 yrs Sex: Female : 1940 Arrival Date: 06/12/2016 Time: 09:29 Bed 18 Private MD: Disposition: 06/12/16 12:14 Hospitalization ordered by Zain Moore for Inpatient Admission. Preliminary diagnosis is Chronic obstructive pulmonary disease with acute lower respiratory infection. - [facility] - Status is Inpatient Admission. jjr - Condition is Stable. - Problem is an acute exacerbation. - Symptoms have improved. Historical: - Allergies: Amoxicillin (Hives); Lisinopril (Swelling); Oxycodone HClagitation; Temazepam (Swelling); SULFA (SULFONAMIDES) (Hives); - Home Meds: 1. [place] 7.5-325 mg Oral tab qid prn 2. albuterol sulfate 2.5 mg /3 mL (0.083 %) Inhl nebu 4 times per day (Last dose: 06/12/2016) 3. albuterol sulfate 90 mcg/actuation Inhl aepb every 4 hours (Last dose: 06/12/2016) 4. alendronate 70 mg oral tab once wkly Tuesday 5. amlodipine 10 mg Oral tab 1 tab once daily (Last dose: 06/12/2016) 6. aspirin 81 mg Oral chew once daily (Last dose: 06/12/2016) 7. Calcium + Vitamin D 5oo/200 Oral twice a day (Last dose: 06/12/2016) 8. Colace 100 mg oral tab 1 cap 2 times per day takes 1 daily as needed (Last dose: 06/12/2016) 9. erythromycin 5 mg/gram (0.5 %) Opht oint 6 times per day 10. ferrous sulfate 325 mg (65 mg iron) Oral cpER daily 11. fluoxetine 60 mg Oral tab once daily (Last dose: 06/12/2016) 12. fluticasone-salmeterol 45-21 mcg/actuation inhalation HFAA 2 puffs 2 times per day 13. fluticasone 50 mcg/actuation nasal spsn 2 sprays once daily (Last dose: 06/11/2016) 14. furosemide 60 mg Oral tab 1.5 tab once daily (Last dose: 06/12/2016) 15. gabapentin 600 mg Oral tab 1 tab bid (Last dose: 06/12/2016) 16. loratadine 10 mg Oral tab 1 tab once daily (Last dose: 06/11/2016) 17. magnesium oxide 500 mg Oral cap nightly (Last dose: 06/11/2016) 18. Nitrostat 0.4 mg SL subl every 5 minutes prn (Last dose: 06/12/2016) 19. nystatin 100,000 unit/mL Oral susp 10 mL 4 times per day 20. oxybutynin chloride 15 mg Oral tr24 once daily (Last dose: 06/12/2016) 21. Protonix 40 mg Oral TbEC 1 tab once daily (Last dose: 06/12/2016) 22. oxygen NC 2 liters continuous 23. polyethylene glycol 3350 17 gram/dose oral powd once daily (Last dose: 06/12/2016) 24. prednisone 10 mg Oral tab once daily (Last dose: 06/12/2016) 25. Advair Diskus 250-50 mcg/dose Inhl dsdv 2 times per day (Last dose: 06/11/2016) 26. simvastatin 10 mg Oral tab 1 tab once daily (Last dose: 06/11/2016) 27. Spiriva with HandiHaler 18 mcg Inhl CpDv 1 cap once daily (Last dose: 06/11/2016) 28. trazodone 100 mg Oral tab 2 tabs nightly (Last dose: 06/11/2016) 29. Coumadin 5 mg oral tab once daily (Last dose: 06/11/2016) - PMHx: Cancer, Breast - Left; Cancer, Breast - Right; CHF; GERD; PE; Anxiety; COPD; - PSHx: Mastectomy- Bilateral; Tubal ligation; Ankle Arthroplasty, Left; Shoulder Arthroplasty, Left; lumbar surgery; - Social history: Smoking status: Patient states former smoker of tobacco. No barriers to communication noted, The patient speaks fluent Thai. - : The pt / caregiver states he / she is on anticoagulants: coumadin. Home medication list is obtained from a discharge med list. - Exposure Risk Screening:: None identified. Vital Signs: 06/12 09:46 BP 141 / 82; Pulse 95; Resp 24; Temp 96.9(O); Pulse Ox 91% on 2 lpm NC; Weight 86.18 kg jml1 / 189.99 lbs; Height 5 ft. 2 in. (157.48 cm); Pain 8/10; 09:59 BP 203 / 86 (auto/); jjr 09:59 Pulse 82 MON; Pulse Ox 91% ; jjr 10:14 BP 178 / 81 (auto/); jjr 10:14 Pulse 86 MON; Pulse Ox 91% ; jjr 10:44 BP 185 / 81 (auto/); jjr 10:44 Pulse 76 MON; Pulse Ox 88% ; jjr 10:49 Pulse 74 MON; Pulse Ox 91% on 2 lpm NC; jjr 11:14 BP 138 / 63 (auto/); jjr 11:14 Pulse 74 MON; Resp 24; Pulse Ox 98% ; jjr 11:44 BP 146 / 67 (auto/); jjr 11:44 Pulse 84 MON; Resp 24; Pulse Ox 90% on 2 lpm NC; jjr 12:13 Pulse 100 MON; Pulse Ox 88% ; jjr 12:14 BP 117 / 91 (auto/); jjr 12:44 BP 126 / 60 (auto/); jjr 12:44 Pulse 94 MON; Resp 20; Pulse Ox 89% on 2 lpm NC; jjr 14:24 BP 129 / 75 (auto/); jjr 14:24 Pulse 80 MON; jjr 14:26 BP 129 / 75; Pulse 81; Resp 24; Temp 98.6(O); Pulse Ox 92% on 2 lpm NC; Pain 0/10; jjr 15:19 Pulse 80 MON; jjr 15:21 BP 137 / 62 (auto/); Resp 24; Pulse Ox 90% on 2 lpm NC; jjr 09:46 Body Mass Index 34.75 (86.18 kg, 157.48 cm) jml1 MDM: 09:34 ECG WITH READING ER PHYS+CARDIAG ordered. EDMS 09:52 Solu-MEDROL 125 mg IVP once ordered. sd1 09:52 -Blood Culture (Adults Only), peripheral from different site, or from device/port/PICC sd1 etc. if present ordered. 09:52 Call Respiratory ordered. sd1 09:52 Photographic Equipment Inspector/Pulse Ox/q 15 min VS ordered. sd1 09:52 IV Saline Lock ordered. sd1 09:52 Oxygen at 4L/Min NC or Home dosage ordered. sd1 09:52 Rhythm Strip to chart ordered. sd1 09:52 Albuterol-Ipratropium 1 neb Nebulizer every 20 minutes x3 ordered. sd1 09:52 -Arterial Blood Gas Ordered. EDMS 09:52 B-Type Natiuretic Peptide Ordered. EDMS 09:52 Basic Metabolic Profile Ordered. EDMS 09:52 CBC with Diff Ordered. EDMS 09:52 Cardiac Injury Profile Ordered. EDMS 09:52 Troponin Ordered. EDMS 09:52 -Blood Culture Ordered. EDMS 09:53 Chest, 1 View Ordered. EDMS 09:53 BED REQUEST+ADM ordered. EDMS 09:56 -Blood Culture (Adults Only), peripheral from different site, or from device/port/PICC deg etc. if present complete. 09:56 Call Respiratory complete. deg 09:56 BLOOD CULTURES Ordered. EDMS 10:03 Sputum Culture & Gram Stain Ordered. EDMS 10:04 PT/INR Ordered. EDMS 10:12 US Lower Extremity R/O DVT Ordered. EDMS 10:57 DIFFERENTIAL NO CHARGE Ordered. EDMS 10:57 PLATELET ESTIMATE Ordered. EDMS 11:04 Financial registration complete. mm15 11:06 -Arterial Blood Gas Reviewed. sd1 11:06 B-Type Natiuretic Peptide Reviewed. sd1 11:06 Basic Metabolic Profile Reviewed. sd1 11:06 CBC with Diff Reviewed. sd1 11:06 PT/INR Reviewed. sd1 11:06 Cardiac Injury Profile Reviewed. sd1 11:06 Troponin Reviewed. sd1 11:06 Chest, 1 View Reviewed. sd1 11:10 -Influenza A&B Rapid Antigen - Nose Ordered. EDMS 11:25 Lactic Acid (Laird tube on ice) Ordered. EDMS 11:41 CBC with Diff Reviewed. sd1 11:41 PLATELET ESTIMATE Reviewed. sd1 11:41 US Lower Extremity R/O DVT Reviewed. sd1 11:43 cefTRIAXone 1 grams IVPB once over 30 mins; dilute in 50mL of NS or D5W ordered. sd1 11:43 azithromycin 500 mg IVPB once over 1 hrs; dilute in 250mL of D5W or NS ordered. sd1 11:49 CT Head Without Contrast Ordered. EDMS 12:00 -Influenza A&B Rapid Antigen - Nose Reviewed. sd1 12:12 CONSISTENT CARBOHYDRATE+DIET ordered. EDMS 12:41 T-Sheet-- Draft Copy was scanned into [employer] and attached to record. [facility] 13:22 Admission / Observation Status ordered. EDMS 13:23 CONSISTENT CARBOHYDRATES ordered. EDMS 15:19 [facility] Payment Agreement was scanned into [employer] and attached to record. mm15 Administered Medications: 10:18 Drug: Solu-MEDROL 125 mg [Solu-Medrol 500 mg intravenous solution (125 mg)] Route: IVP; jjr Site: left antecubital; 11:00 Drug: Albuterol-Ipratropium 1 neb [ipratropium-albuterol 0.5 mg-3 mg(2.5 mg base)/3 mL js11 nebulization soln (1 neb)] Route: Nebulizer; 11:18 Drug: Albuterol-Ipratropium 1 neb [ipratropium-albuterol 0.5 mg-3 mg(2.5 mg base)/3 mL js11 nebulization soln (1 neb)] Route: Nebulizer; 11:32 Drug: Albuterol-Ipratropium 1 neb [ipratropium-albuterol 0.5 mg-3 mg(2.5 mg base)/3 mL js11 nebulization soln (1 neb)] Route: Nebulizer; 12:07 Drug: cefTRIAXone 1 grams [ceftriaxone 1 gram solution for injection] Route: IVPB; jjr Infused Over: 30 mins; Site: left antecubital; Delivery: Syringe pump; 12:31 Follow up: IV Status: Completed infusion; IV Intake: 10ml jjr 12:32 Drug: azithromycin 500 mg [azithromycin 500 mg intravenous solution] Route: IVPB; jjr Infused Over: 1 hrs; Site: left antecubital; 13:34 Follow up: IV Status: Completed infusion; IV Intake: 250ml jjr Signatures: Dispatcher [employer] EDMS Larissa Mckeon MD MD sd1 Murray, Denise, Division Merchandise Manager Unit deg Morris RIOS, LEYDA Alvarenga RN Wendy Whittington RN RN jjr McGrath, Marlynn mm15 Larissa Abrams Jordan js11 The chart was reviewed and I authenticate all verbal orders and agree with the evaluation and treatment provided.Corrections: (The following items were deleted from the chart) 10:27 09:41 Social history Smoking status: Patient uses tobacco products, current every day daniellaswati smoker. No barriers to communication noted, The patient speaks fluent Thai, daniellaswati 12:25 12:04 MAGNESIUM LEVEL+LAB ordered. EDMS EDMS Attachments: 12:41 T-Sheet-- Draft Copy [facility] 15:19 [facility] Payment Agreement mm15 Chart Complete MTDD
[2016-06-14] MEDS: FLUTICASONE PROP 0.05% NASAL SPRAY 16 GM (FLONASE) SCH (20:50)
[2016-06-14] MEDS: traZODone 100 MG TAB PO SCH (20:51)
[2016-06-14] MEDS: SIMVASTATIN 10 MG TAB PO SCH (20:51)
[2016-06-14] MEDS: LORATADINE 10 MG TAB PO SCH (20:51)
[2016-06-14 22:00] VITALS: BP 132/60
[2016-06-14] MEDS: ANEXSIA, NORCO 7.5MG/325MG TABLET(HYDROCODONE/APAP) PO PRN (23:08)
[2016-06-15] MEDS: methylPREDNISolone INJ 40 MG/1 ML VIAL (J2920) IV SCH (04:00)
[2016-06-15 06:00] VITALS: BP 128/60
[2016-06-15 06:33] LABS: INR 2.75
[2016-06-15 06:35] LABS: MEAN CORPUSCULAR HEMOGLOBIN 30.3 pg (27.0-33.0); MEAN CORPUSCULAR HGB CONC 31.3 g/dl (32.0-36.5); MEAN CORPUSCULAR VOLUME 96.9 fl (80.0-96.0); RED CELL DISTRIBUTION WIDTH 14.3 % (11.5-14.5); WHITE BLOOD COUNT 11.4 K/mm3 (4.0-10.0)
[2016-06-15 06:49] LABS: CALCIUM LEVEL 8.4 MG/DL (8.8-10.2); CREATININE FOR GFR 1.54 MG/DL (0.55-1.02); GLOMERULAR FILTRATION RATE 34.8 (>39); POTASSIUM SERUM 4.6 MEQ/L (3.5-5.1)
[2016-06-15] MEDS: ADVAIR DISKUS 250/50 INH PWD INH SCH ×2 (07:46→19:43)
[2016-06-15] MEDS: TIOTROPIUM INHALER/CAPSULE (SPIRIVA) INH SCH (07:46)
[2016-06-15] MEDS: IPRATROPIUM 0.5MG/ALBUTEROL 2.5MG INH SOL UD 3ML (DUONEB)(J7620) NEB SCH ×4 (08:00→19:43)
[2016-06-15] MEDS: HumaLOG INSULIN (NovoLOG) PER UNIT SC SCH ×4 (08:25→21:00)
[2016-06-15 08:30] VITALS: BP 148/68
[2016-06-15] MEDS: FUROSEMIDE 20 MG TAB PO SCH (09:58)
[2016-06-15] MEDS: FLUoxetine 20 MG CAP PO SCH (09:58)
[2016-06-15] MEDS: FERROUS SULFATE 325MG TAB PO SCH (09:59)
[2016-06-15] MEDS: NYSTATIN 500,000 U/5 ML SUSP UDC SS SCH ×4 (09:59→21:06)
[2016-06-15] MEDS: AZITHROMYCIN 250 MG TAB PO SCH (09:59)
[2016-06-15] MEDS: PANTOPRAZOLE 40MG TAB (PROTONIX) PO SCH (10:00)
[2016-06-15] MEDS: oxyBUTYnin *DITROPAN XL* 5 MG TABCR PO SCH (10:01)
[2016-06-15] MEDS: DOCUSATE SODIUM 100 MG CAP PO SCH ×2 (10:01→21:06)
[2016-06-15] MEDS: GABAPENTIN 300 MG CAP PO SCH ×2 (10:01→21:06)
[2016-06-15] MEDS: amLODIPine 10 MG TAB PO SCH (10:01)
[2016-06-15] MEDS: ASPIRIN 81 MG ENTERIC TAB PO SCH (10:01)
[2016-06-15] MEDS: MIRALAX *UNIT DOSE* 17GM PACKET PO SCH (10:02)
[2016-06-15] MEDS: ANEXSIA, NORCO 7.5MG/325MG TABLET(HYDROCODONE/APAP) PO PRN ×2 (10:02→21:07)
--- NOTE | 2016-06-15 12:28 | IPNPDOC ---
Assessment/Plan Date Seen The patient was seen on 06/15/16. 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 improving, was changed to prednisone today (3) Chronic respiratory failure with hypoxia Status: Chronic Problem Text: continue nasal canula (4) History of pulmonary embolism Status: Chronic Problem Text: has IVC filter in place also on coumadin , INR theraputic (5) CKD (chronic kidney disease), stage III Status: Chronic Problem Text: stage 3 to 4 at baseline will continue to monitor. (6) Diabetes Status: Chronic (7) HTN (hypertension) Status: Chronic (8) Diastolic congestive heart failure Status: Chronic Response to Treatment: Stable Problem Text: continue lasix daily (9) GERD (gastroesophageal reflux disease) Status: Chronic (10) Depression Status: Chronic Problem Text: no suicidal ideas continue trazodone and prozac (11) CAD (coronary artery disease) Status: Chronic Problem Text: continue ASA and statin not on betablocker (12) Obesity Status: Chronic Plan / VTE VTE Prophylaxis Ordered?: Yes Plan Advance Directives: DNR Subjective Review of Systems CC/HPI The patient is a 75-year-old female admitted with a reason for visit of Copd Exacerbation. Constitutional: Denies: Chills, Fever, Malaise, Night Sweats, Weakness Pulmonary: Denies: Cough, Dyspnea Cardiovascular: Reports: Edema Objective Physical Examination General Exam: Positive: Alert, Cooperative, No Acute Distress Eye Exam: Positive: Conjunctiva & lids normal, EOMI, PERRLA, Negative: Sclera icteric ENT Exam: Positive: Atraumatic, Mucous membr. moist/pink Neck Exam: Negative: JVD Chest Exam: Positive: Diminished, Wheezing, Negative: Rales Heart Exam: Positive: Normal S1, Normal S2, Rate Normal Telemetry: Positive: Sinus Abdomen Exam: Positive: Normal bowel sounds, Soft, Negative: Tenderness Extremity Exam: Positive: Edema, Other (left calf noted to be larger than right , this is the patient's baseline. Ultrasound of the lower extremity is negative for DVT in the ER.) Vital Signs/I&O Vital Signs Date Time Temp Pulse Resp B/P Pulse Ox O2 Delivery O2 Flow Rate FiO2 06/15/16 10:32 18 06/15/16 10:15 Nasal Cannula 2.0 06/15/16 10:01 78 148/68 06/15/16 08:30 97.6 94 I&O- Last 24 Hours up to 6 AM 06/15/16 06:00 Intake Total 2390 ml Output Total 1450 ml Balance 940 ml Laboratory Data Labs 24H Laboratory Tests 2 06/14/16 16:36: Bedside Glucose (Misc Panel) 255H 06/14/16 20:15: Bedside Glucose (Misc Panel) 175H 06/15/16 05:46: Anion Gap 7L, Blood Urea Nitrogen 38H, Creatinine 1.54H, Sodium Level 144, Potassium Level 4.6, Chloride Level 104, Carbon Dioxide Level 33H, Calcium Level 8.4L, Glomerular Filtration Rate 34.8L, Prothromb Time International Ratio 2.75, Prothrombin Time 29.1H CBC/BMP Laboratory Tests 06/15/16 05:46 Calcium Level 8.4 L, Red Blood Count 3.07 L, Mean Corpuscular Volume 96.9 H, Mean Corpuscular Hemoglobin 30.3, Mean Corpuscular Hemoglobin Concent 31.3 L, Red Cell Distribution Width 14.3 FSBS Laboratory Tests Test 06/14/16 16:36 06/14/16 20:15 Range/Units Bedside Glucose (Misc Panel) 255 175 83-110 MG/DL Microbiology Microbiology 06/12/16 Blood Culture - Preliminary, Resulted No Growth after 72 hours. All specime... 06/12/16 Blood Culture - Preliminary, Resulted No Growth after 72 hours. All specime... 06/12/16 Influenza Virus Type A Antigen - Final, Complete 06/12/16 Influenza Virus Type B Antigen - Final, Complete 06/12/16 Gram Stain - Final, Complete 06/12/16 Sputum Culture - Final, Complete Staph.aureus Methicillin Resis IRENE REYNOSO DO Jun 15, 2016 12:28
[2016-06-15 14:00] VITALS: BP 138/68
[2016-06-15] MEDS: predniSONE 20 MG TAB PO SCH ×2 (14:25→21:06)
[2016-06-15] MEDS: WARFARIN SOD 5 MG TAB PO SCH (17:42)
[2016-06-15] MEDS: LORATADINE 10 MG TAB PO SCH (21:06)
[2016-06-15] MEDS: SIMVASTATIN 10 MG TAB PO SCH (21:06)
[2016-06-15] MEDS: traZODone 100 MG TAB PO SCH (21:06)
[2016-06-15] MEDS: FLUTICASONE PROP 0.05% NASAL SPRAY 16 GM (FLONASE) SCH (21:08)
[2016-06-15 22:00] VITALS: BP 125/66
[2016-06-16] MEDS: IPRATROPIUM 0.5MG/ALBUTEROL 2.5MG INH SOL UD 3ML (DUONEB)(J7620) NEB SCH ×5 (04:09→15:42)
[2016-06-16 06:00] VITALS: BP 135/68
[2016-06-16] MEDS: predniSONE 20 MG TAB PO SCH ×2 (06:05→14:06)
[2016-06-16 06:17] LABS: MEAN CORPUSCULAR HEMOGLOBIN 30.5 pg (27.0-33.0); MEAN CORPUSCULAR VOLUME 98.3 fl (80.0-96.0); RED CELL DISTRIBUTION WIDTH 15.1 % (11.5-14.5)
[2016-06-16 06:23] LABS: INR 2.87
[2016-06-16 06:39] LABS: CALCIUM LEVEL 8.3 MG/DL (8.8-10.2); CREATININE FOR GFR 1.57 MG/DL (0.55-1.02); POTASSIUM SERUM 4.3 MEQ/L (3.5-5.1)
[2016-06-16] MEDS: ADVAIR DISKUS 250/50 INH PWD INH SCH (07:44)
[2016-06-16] MEDS: TIOTROPIUM INHALER/CAPSULE (SPIRIVA) INH SCH (07:44)
[2016-06-16] MEDS: HumaLOG INSULIN (NovoLOG) PER UNIT SC SCH ×2 (07:55→12:50)
[2016-06-16] MEDS: MIRALAX *UNIT DOSE* 17GM PACKET PO SCH (08:00)
[2016-06-16] MEDS: NYSTATIN 500,000 U/5 ML SUSP UDC SS SCH ×2 (08:00→12:49)
[2016-06-16] MEDS: FLUoxetine 20 MG CAP PO SCH (08:01)
[2016-06-16] MEDS: DOCUSATE SODIUM 100 MG CAP PO SCH (08:01)
[2016-06-16] MEDS: FUROSEMIDE 20 MG TAB PO SCH (08:01)
[2016-06-16] MEDS: GABAPENTIN 300 MG CAP PO SCH (08:01)
[2016-06-16] MEDS: oxyBUTYnin *DITROPAN XL* 5 MG TABCR PO SCH (08:01)
[2016-06-16 08:02] VITALS: BP 135/68
[2016-06-16] MEDS: PANTOPRAZOLE 40MG TAB (PROTONIX) PO SCH (08:02)
[2016-06-16] MEDS: amLODIPine 10 MG TAB PO SCH (08:02)
[2016-06-16] MEDS: ASPIRIN 81 MG ENTERIC TAB PO SCH (08:02)
[2016-06-16] MEDS: FERROUS SULFATE 325MG TAB PO SCH (08:02)
[2016-06-16 14:00] VITALS: BP 135/63
[2016-06-16] MEDS ORDERED: DELT1TAB PO (14:44)
--- NOTE | 2016-06-19 06:41 | EDDOCDS ---
Physician Documentation [facility] Name: Isidra Delacruz Age: 75 yrs Sex: Female : 1940 Arrival Date: 06/12/2016 Time: 09:29 Bed 18 Private MD: Disposition: 06/12/16 12:14 Hospitalization ordered by Zain Moore for Inpatient Admission. Preliminary diagnosis is Chronic obstructive pulmonary disease with acute lower respiratory infection. - [facility] - Status is Inpatient Admission. jjr - Condition is Stable. - Problem is an acute exacerbation. - Symptoms have improved. Historical: - Allergies: Amoxicillin (Hives); Lisinopril (Swelling); Oxycodone HClagitation; Temazepam (Swelling); SULFA (SULFONAMIDES) (Hives); - Home Meds: 1. [place] 7.5-325 mg Oral tab qid prn 2. albuterol sulfate 2.5 mg /3 mL (0.083 %) Inhl nebu 4 times per day (Last dose: 06/12/2016) 3. albuterol sulfate 90 mcg/actuation Inhl aepb every 4 hours (Last dose: 06/12/2016) 4. alendronate 70 mg oral tab once wkly Tuesday 5. amlodipine 10 mg Oral tab 1 tab once daily (Last dose: 06/12/2016) 6. aspirin 81 mg Oral chew once daily (Last dose: 06/12/2016) 7. Calcium + Vitamin D 5oo/200 Oral twice a day (Last dose: 06/12/2016) 8. Colace 100 mg oral tab 1 cap 2 times per day takes 1 daily as needed (Last dose: 06/12/2016) 9. erythromycin 5 mg/gram (0.5 %) Opht oint 6 times per day 10. ferrous sulfate 325 mg (65 mg iron) Oral cpER daily 11. fluoxetine 60 mg Oral tab once daily (Last dose: 06/12/2016) 12. fluticasone-salmeterol 45-21 mcg/actuation inhalation HFAA 2 puffs 2 times per day 13. fluticasone 50 mcg/actuation nasal spsn 2 sprays once daily (Last dose: 06/11/2016) 14. furosemide 60 mg Oral tab 1.5 tab once daily (Last dose: 06/12/2016) 15. gabapentin 600 mg Oral tab 1 tab bid (Last dose: 06/12/2016) 16. loratadine 10 mg Oral tab 1 tab once daily (Last dose: 06/11/2016) 17. magnesium oxide 500 mg Oral cap nightly (Last dose: 06/11/2016) 18. Nitrostat 0.4 mg SL subl every 5 minutes prn (Last dose: 06/12/2016) 19. nystatin 100,000 unit/mL Oral susp 10 mL 4 times per day 20. oxybutynin chloride 15 mg Oral tr24 once daily (Last dose: 06/12/2016) 21. Protonix 40 mg Oral TbEC 1 tab once daily (Last dose: 06/12/2016) 22. oxygen NC 2 liters continuous 23. polyethylene glycol 3350 17 gram/dose oral powd once daily (Last dose: 06/12/2016) 24. prednisone 10 mg Oral tab once daily (Last dose: 06/12/2016) 25. Advair Diskus 250-50 mcg/dose Inhl dsdv 2 times per day (Last dose: 06/11/2016) 26. simvastatin 10 mg Oral tab 1 tab once daily (Last dose: 06/11/2016) 27. Spiriva with HandiHaler 18 mcg Inhl CpDv 1 cap once daily (Last dose: 06/11/2016) 28. trazodone 100 mg Oral tab 2 tabs nightly (Last dose: 06/11/2016) 29. Coumadin 5 mg oral tab once daily (Last dose: 06/11/2016) - PMHx: Cancer, Breast - Left; Cancer, Breast - Right; CHF; GERD; PE; Anxiety; COPD; - PSHx: Mastectomy- Bilateral; Tubal ligation; Ankle Arthroplasty, Left; Shoulder Arthroplasty, Left; lumbar surgery; - Social history: Smoking status: Patient states former smoker of tobacco. No barriers to communication noted, The patient speaks fluent Vietnamese. - : The pt / caregiver states he / she is on anticoagulants: coumadin. Home medication list is obtained from a discharge med list. - Exposure Risk Screening:: None identified. Vital Signs: 06/12 09:46 BP 141 / 82; Pulse 95; Resp 24; Temp 96.9(O); Pulse Ox 91% on 2 lpm NC; Weight 86.18 kg jml1 / 189.99 lbs; Height 5 ft. 2 in. (157.48 cm); Pain 8/10; 09:59 BP 203 / 86 (auto/); jjr 09:59 Pulse 82 MON; Pulse Ox 91% ; jjr 10:14 BP 178 / 81 (auto/); jjr 10:14 Pulse 86 MON; Pulse Ox 91% ; jjr 10:44 BP 185 / 81 (auto/); jjr 10:44 Pulse 76 MON; Pulse Ox 88% ; jjr 10:49 Pulse 74 MON; Pulse Ox 91% on 2 lpm NC; jjr 11:14 BP 138 / 63 (auto/); jjr 11:14 Pulse 74 MON; Resp 24; Pulse Ox 98% ; jjr 11:44 BP 146 / 67 (auto/); jjr 11:44 Pulse 84 MON; Resp 24; Pulse Ox 90% on 2 lpm NC; jjr 12:13 Pulse 100 MON; Pulse Ox 88% ; jjr 12:14 BP 117 / 91 (auto/); jjr 12:44 BP 126 / 60 (auto/); jjr 12:44 Pulse 94 MON; Resp 20; Pulse Ox 89% on 2 lpm NC; jjr 14:24 BP 129 / 75 (auto/); jjr 14:24 Pulse 80 MON; jjr 14:26 BP 129 / 75; Pulse 81; Resp 24; Temp 98.6(O); Pulse Ox 92% on 2 lpm NC; Pain 0/10; jjr 15:19 Pulse 80 MON; jjr 15:21 BP 137 / 62 (auto/); Resp 24; Pulse Ox 90% on 2 lpm NC; jjr 09:46 Body Mass Index 34.75 (86.18 kg, 157.48 cm) jml1 MDM: 09:34 ECG WITH READING ER PHYS+CARDIAG ordered. EDMS 09:52 Solu-MEDROL 125 mg IVP once ordered. sd1 09:52 -Blood Culture (Adults Only), peripheral from different site, or from device/port/PICC sd1 etc. if present ordered. 09:52 Call Respiratory ordered. sd1 09:52 Custodian Supervisor/Pulse Ox/q 15 min VS ordered. sd1 09:52 IV Saline Lock ordered. sd1 09:52 Oxygen at 4L/Min NC or Home dosage ordered. sd1 09:52 Rhythm Strip to chart ordered. sd1 09:52 Albuterol-Ipratropium 1 neb Nebulizer every 20 minutes x3 ordered. sd1 09:52 -Arterial Blood Gas Ordered. EDMS 09:52 B-Type Natiuretic Peptide Ordered. EDMS 09:52 Basic Metabolic Profile Ordered. EDMS 09:52 CBC with Diff Ordered. EDMS 09:52 Cardiac Injury Profile Ordered. EDMS 09:52 Troponin Ordered. EDMS 09:52 -Blood Culture Ordered. EDMS 09:53 Chest, 1 View Ordered. EDMS 09:53 BED REQUEST+ADM ordered. EDMS 09:56 -Blood Culture (Adults Only), peripheral from different site, or from device/port/PICC deg etc. if present complete. 09:56 Call Respiratory complete. deg 09:56 BLOOD CULTURES Ordered. EDMS 10:03 Sputum Culture & Gram Stain Ordered. EDMS 10:04 PT/INR Ordered. EDMS 10:12 US Lower Extremity R/O DVT Ordered. EDMS 10:57 DIFFERENTIAL NO CHARGE Ordered. EDMS 10:57 PLATELET ESTIMATE Ordered. EDMS 11:04 Financial registration complete. mm15 11:06 -Arterial Blood Gas Reviewed. sd1 11:06 B-Type Natiuretic Peptide Reviewed. sd1 11:06 Basic Metabolic Profile Reviewed. sd1 11:06 CBC with Diff Reviewed. sd1 11:06 PT/INR Reviewed. sd1 11:06 Cardiac Injury Profile Reviewed. sd1 11:06 Troponin Reviewed. sd1 11:06 Chest, 1 View Reviewed. sd1 11:10 -Influenza A&B Rapid Antigen - Nose Ordered. EDMS 11:25 Lactic Acid (Laird tube on ice) Ordered. EDMS 11:41 CBC with Diff Reviewed. sd1 11:41 PLATELET ESTIMATE Reviewed. sd1 11:41 US Lower Extremity R/O DVT Reviewed. sd1 11:43 cefTRIAXone 1 grams IVPB once over 30 mins; dilute in 50mL of NS or D5W ordered. sd1 11:43 azithromycin 500 mg IVPB once over 1 hrs; dilute in 250mL of D5W or NS ordered. sd1 11:49 CT Head Without Contrast Ordered. EDMS 12:00 -Influenza A&B Rapid Antigen - Nose Reviewed. sd1 12:12 CONSISTENT CARBOHYDRATE+DIET ordered. EDMS 12:41 T-Sheet-- Draft Copy was scanned into [employer] and attached to record. [facility] 13:22 Admission / Observation Status ordered. EDMS 13:23 CONSISTENT CARBOHYDRATES ordered. EDMS 15:19 [facility] Payment Agreement was scanned into [employer] and attached to record. mm15 Administered Medications: 10:18 Drug: Solu-MEDROL 125 mg [Solu-Medrol 500 mg intravenous solution (125 mg)] Route: IVP; jjr Site: left antecubital; 11:00 Drug: Albuterol-Ipratropium 1 neb [ipratropium-albuterol 0.5 mg-3 mg(2.5 mg base)/3 mL js11 nebulization soln (1 neb)] Route: Nebulizer; 11:18 Drug: Albuterol-Ipratropium 1 neb [ipratropium-albuterol 0.5 mg-3 mg(2.5 mg base)/3 mL js11 nebulization soln (1 neb)] Route: Nebulizer; 11:32 Drug: Albuterol-Ipratropium 1 neb [ipratropium-albuterol 0.5 mg-3 mg(2.5 mg base)/3 mL js11 nebulization soln (1 neb)] Route: Nebulizer; 12:07 Drug: cefTRIAXone 1 grams [ceftriaxone 1 gram solution for injection] Route: IVPB; jjr Infused Over: 30 mins; Site: left antecubital; Delivery: Syringe pump; 12:31 Follow up: IV Status: Completed infusion; IV Intake: 10ml jjr 12:32 Drug: azithromycin 500 mg [azithromycin 500 mg intravenous solution] Route: IVPB; jjr Infused Over: 1 hrs; Site: left antecubital; 13:34 Follow up: IV Status: Completed infusion; IV Intake: 250ml jjr Signatures: Dispatcher [employer] EDMS Larissa Mckeon MD MD sd1 Murray, Denise, [employer] deg Morris RIOS, LEYDA Alvarenga RN Wendy Whittington RN RN jjr McGrath, Marlynn mm15 Larissa Abrams Jordan js11 The chart was reviewed and I authenticate all verbal orders and agree with the evaluation and treatment provided.Corrections: (The following items were deleted from the chart) 10:27 09:41 Social history Smoking status: Patient uses tobacco products, current every day daniellaswati smoker. No barriers to communication noted, The patient speaks fluent Vietnamese, daniellaswati 12:25 12:04 MAGNESIUM LEVEL+LAB ordered. EDMS EDMS Attachments: 12:41 T-Sheet-- Draft Copy [facility] 15:19 [facility] Payment Agreement [email or web address] Chart Complete MTDD
--- NOTE | 2016-06-19 06:41 | EDDOCDS ---
Physician Documentation [facility] Name: Isidra Delacruz Age: 75 yrs Sex: Female : 1940 Arrival Date: 06/12/2016 Time: 09:29 Bed 18 Private MD: Disposition: 06/12/16 12:14 Hospitalization ordered by Zain Moore for Inpatient Admission. Preliminary diagnosis is Chronic obstructive pulmonary disease with acute lower respiratory infection. - [facility] - Status is Inpatient Admission. jjr - Condition is Stable. - Problem is an acute exacerbation. - Symptoms have improved. Historical: - Allergies: Amoxicillin (Hives); Lisinopril (Swelling); Oxycodone HClagitation; Temazepam (Swelling); SULFA (SULFONAMIDES) (Hives); - Home Meds: 1. [place] 7.5-325 mg Oral tab qid prn 2. albuterol sulfate 2.5 mg /3 mL (0.083 %) Inhl nebu 4 times per day (Last dose: 06/12/2016) 3. albuterol sulfate 90 mcg/actuation Inhl aepb every 4 hours (Last dose: 06/12/2016) 4. alendronate 70 mg oral tab once wkly Tuesday 5. amlodipine 10 mg Oral tab 1 tab once daily (Last dose: 06/12/2016) 6. aspirin 81 mg Oral chew once daily (Last dose: 06/12/2016) 7. Calcium + Vitamin D 5oo/200 Oral twice a day (Last dose: 06/12/2016) 8. Colace 100 mg oral tab 1 cap 2 times per day takes 1 daily as needed (Last dose: 06/12/2016) 9. erythromycin 5 mg/gram (0.5 %) Opht oint 6 times per day 10. ferrous sulfate 325 mg (65 mg iron) Oral cpER daily 11. fluoxetine 60 mg Oral tab once daily (Last dose: 06/12/2016) 12. fluticasone-salmeterol 45-21 mcg/actuation inhalation HFAA 2 puffs 2 times per day 13. fluticasone 50 mcg/actuation nasal spsn 2 sprays once daily (Last dose: 06/11/2016) 14. furosemide 60 mg Oral tab 1.5 tab once daily (Last dose: 06/12/2016) 15. gabapentin 600 mg Oral tab 1 tab bid (Last dose: 06/12/2016) 16. loratadine 10 mg Oral tab 1 tab once daily (Last dose: 06/11/2016) 17. magnesium oxide 500 mg Oral cap nightly (Last dose: 06/11/2016) 18. Nitrostat 0.4 mg SL subl every 5 minutes prn (Last dose: 06/12/2016) 19. nystatin 100,000 unit/mL Oral susp 10 mL 4 times per day 20. oxybutynin chloride 15 mg Oral tr24 once daily (Last dose: 06/12/2016) 21. Protonix 40 mg Oral TbEC 1 tab once daily (Last dose: 06/12/2016) 22. oxygen NC 2 liters continuous 23. polyethylene glycol 3350 17 gram/dose oral powd once daily (Last dose: 06/12/2016) 24. prednisone 10 mg Oral tab once daily (Last dose: 06/12/2016) 25. Advair Diskus 250-50 mcg/dose Inhl dsdv 2 times per day (Last dose: 06/11/2016) 26. simvastatin 10 mg Oral tab 1 tab once daily (Last dose: 06/11/2016) 27. Spiriva with HandiHaler 18 mcg Inhl CpDv 1 cap once daily (Last dose: 06/11/2016) 28. trazodone 100 mg Oral tab 2 tabs nightly (Last dose: 06/11/2016) 29. Coumadin 5 mg oral tab once daily (Last dose: 06/11/2016) - PMHx: Cancer, Breast - Left; Cancer, Breast - Right; CHF; GERD; PE; Anxiety; COPD; - PSHx: Mastectomy- Bilateral; Tubal ligation; Ankle Arthroplasty, Left; Shoulder Arthroplasty, Left; lumbar surgery; - Social history: Smoking status: Patient states former smoker of tobacco. No barriers to communication noted, The patient speaks fluent Montenegrin. - : The pt / caregiver states he / she is on anticoagulants: coumadin. Home medication list is obtained from a discharge med list. - Exposure Risk Screening:: None identified. Vital Signs: 06/12 09:46 BP 141 / 82; Pulse 95; Resp 24; Temp 96.9(O); Pulse Ox 91% on 2 lpm NC; Weight 86.18 kg jml1 / 189.99 lbs; Height 5 ft. 2 in. (157.48 cm); Pain 8/10; 09:59 BP 203 / 86 (auto/); jjr 09:59 Pulse 82 MON; Pulse Ox 91% ; jjr 10:14 BP 178 / 81 (auto/); jjr 10:14 Pulse 86 MON; Pulse Ox 91% ; jjr 10:44 BP 185 / 81 (auto/); jjr 10:44 Pulse 76 MON; Pulse Ox 88% ; jjr 10:49 Pulse 74 MON; Pulse Ox 91% on 2 lpm NC; jjr 11:14 BP 138 / 63 (auto/); jjr 11:14 Pulse 74 MON; Resp 24; Pulse Ox 98% ; jjr 11:44 BP 146 / 67 (auto/); jjr 11:44 Pulse 84 MON; Resp 24; Pulse Ox 90% on 2 lpm NC; jjr 12:13 Pulse 100 MON; Pulse Ox 88% ; jjr 12:14 BP 117 / 91 (auto/); jjr 12:44 BP 126 / 60 (auto/); jjr 12:44 Pulse 94 MON; Resp 20; Pulse Ox 89% on 2 lpm NC; jjr 14:24 BP 129 / 75 (auto/); jjr 14:24 Pulse 80 MON; jjr 14:26 BP 129 / 75; Pulse 81; Resp 24; Temp 98.6(O); Pulse Ox 92% on 2 lpm NC; Pain 0/10; jjr 15:19 Pulse 80 MON; jjr 15:21 BP 137 / 62 (auto/); Resp 24; Pulse Ox 90% on 2 lpm NC; jjr 09:46 Body Mass Index 34.75 (86.18 kg, 157.48 cm) jml1 MDM: 09:34 ECG WITH READING ER PHYS+CARDIAG ordered. EDMS 09:52 Solu-MEDROL 125 mg IVP once ordered. sd1 09:52 -Blood Culture (Adults Only), peripheral from different site, or from device/port/PICC sd1 etc. if present ordered. 09:52 Call Respiratory ordered. sd1 09:52 Facility Technician/Pulse Ox/q 15 min VS ordered. sd1 09:52 IV Saline Lock ordered. sd1 09:52 Oxygen at 4L/Min NC or Home dosage ordered. sd1 09:52 Rhythm Strip to chart ordered. sd1 09:52 Albuterol-Ipratropium 1 neb Nebulizer every 20 minutes x3 ordered. sd1 09:52 -Arterial Blood Gas Ordered. EDMS 09:52 B-Type Natiuretic Peptide Ordered. EDMS 09:52 Basic Metabolic Profile Ordered. EDMS 09:52 CBC with Diff Ordered. EDMS 09:52 Cardiac Injury Profile Ordered. EDMS 09:52 Troponin Ordered. EDMS 09:52 -Blood Culture Ordered. EDMS 09:53 Chest, 1 View Ordered. EDMS 09:53 BED REQUEST+ADM ordered. EDMS 09:56 -Blood Culture (Adults Only), peripheral from different site, or from device/port/PICC deg etc. if present complete. 09:56 Call Respiratory complete. deg 09:56 BLOOD CULTURES Ordered. EDMS 10:03 Sputum Culture & Gram Stain Ordered. EDMS 10:04 PT/INR Ordered. EDMS 10:12 US Lower Extremity R/O DVT Ordered. EDMS 10:57 DIFFERENTIAL NO CHARGE Ordered. EDMS 10:57 PLATELET ESTIMATE Ordered. EDMS 11:04 Financial registration complete. mm15 11:06 -Arterial Blood Gas Reviewed. sd1 11:06 B-Type Natiuretic Peptide Reviewed. sd1 11:06 Basic Metabolic Profile Reviewed. sd1 11:06 CBC with Diff Reviewed. sd1 11:06 PT/INR Reviewed. sd1 11:06 Cardiac Injury Profile Reviewed. sd1 11:06 Troponin Reviewed. sd1 11:06 Chest, 1 View Reviewed. sd1 11:10 -Influenza A&B Rapid Antigen - Nose Ordered. EDMS 11:25 Lactic Acid (Laird tube on ice) Ordered. EDMS 11:41 CBC with Diff Reviewed. sd1 11:41 PLATELET ESTIMATE Reviewed. sd1 11:41 US Lower Extremity R/O DVT Reviewed. sd1 11:43 cefTRIAXone 1 grams IVPB once over 30 mins; dilute in 50mL of NS or D5W ordered. sd1 11:43 azithromycin 500 mg IVPB once over 1 hrs; dilute in 250mL of D5W or NS ordered. sd1 11:49 CT Head Without Contrast Ordered. EDMS 12:00 -Influenza A&B Rapid Antigen - Nose Reviewed. sd1 12:12 CONSISTENT CARBOHYDRATE+DIET ordered. EDMS 12:41 T-Sheet-- Draft Copy was scanned into [employer] and attached to record. [facility] 13:22 Admission / Observation Status ordered. EDMS 13:23 CONSISTENT CARBOHYDRATES ordered. EDMS 15:19 [facility] Payment Agreement was scanned into [employer] and attached to record. mm15 Administered Medications: 10:18 Drug: Solu-MEDROL 125 mg [Solu-Medrol 500 mg intravenous solution (125 mg)] Route: IVP; jjr Site: left antecubital; 11:00 Drug: Albuterol-Ipratropium 1 neb [ipratropium-albuterol 0.5 mg-3 mg(2.5 mg base)/3 mL js11 nebulization soln (1 neb)] Route: Nebulizer; 11:18 Drug: Albuterol-Ipratropium 1 neb [ipratropium-albuterol 0.5 mg-3 mg(2.5 mg base)/3 mL js11 nebulization soln (1 neb)] Route: Nebulizer; 11:32 Drug: Albuterol-Ipratropium 1 neb [ipratropium-albuterol 0.5 mg-3 mg(2.5 mg base)/3 mL js11 nebulization soln (1 neb)] Route: Nebulizer; 12:07 Drug: cefTRIAXone 1 grams [ceftriaxone 1 gram solution for injection] Route: IVPB; jjr Infused Over: 30 mins; Site: left antecubital; Delivery: Syringe pump; 12:31 Follow up: IV Status: Completed infusion; IV Intake: 10ml jjr 12:32 Drug: azithromycin 500 mg [azithromycin 500 mg intravenous solution] Route: IVPB; jjr Infused Over: 1 hrs; Site: left antecubital; 13:34 Follow up: IV Status: Completed infusion; IV Intake: 250ml jjr Signatures: Dispatcher [employer] EDMS Larissa Mckeon MD MD sd1 Murray, Denise, [employer] deg Morris RIOS, LEYDA Alvarenga RN Wendy Whittington RN RN jjr McGrath, Marlynn mm15 Larissa Abrams Jordan js11 The chart was reviewed and I authenticate all verbal orders and agree with the evaluation and treatment provided.Corrections: (The following items were deleted from the chart) 10:27 09:41 Social history Smoking status: Patient uses tobacco products, current every day daniellaswati smoker. No barriers to communication noted, The patient speaks fluent Montenegrin, daniellaswati 12:25 12:04 MAGNESIUM LEVEL+LAB ordered. EDMS EDMS Attachments: 12:41 T-Sheet-- Draft Copy [facility] 15:19 [facility] Payment Agreement [email or web address] Chart Complete MTDD
--- NOTE | 2016-06-19 06:41 | EDDOCDS ---
Nurse's Notes [facility] Name: Isidra Delacruz Age: 75 yrs Sex: Female : 1940 Arrival Date: 06/12/2016 Time: 09:29 Bed 18 Private MD: Diagnosis: Chronic obstructive pulmonary disease with acute lower respiratory infection Presentation: 06/12 09:39 Presenting complaint: Patient states: intermittent substernal chest pain radiating to jjr left anterior chest for past 2 hours, recent discharge from [facility] with copd exacerbation. Aspirin was not taken prior to arrival. Adult Sepsis Screening: The patient does not have new or worsening altered mentation. Patient has a respiratory rate of greater than or equal to 22 (1 point). Systolic blood pressure is greater than 100. Patient has a qSOFA score of 1- Negative Sepsis Screen. Suicide/Homicide risk assessment- the patient denies having any suicidal and/or homicidal ideations and does not present with any other emotional, behavioral or mental health complaints. Status: Patient is not a litigation services manager or dependent. Transition of care: patient was not received from another setting of care. 09:39 Acuity: GALA Level 3 jjr 09:39 Method Of Arrival: Ambulance jjr Triage Assessment: 09:41 General: Appears in no apparent distress, Behavior is appropriate for age. jjr Cardiovascular: Chest pain radiates Does not radiate. episodes are intermittent began 2 hours prior to arrival. Historical: - Allergies: Amoxicillin (Hives); Lisinopril (Swelling); Oxycodone HClagitation; Temazepam (Swelling); SULFA (SULFONAMIDES) (Hives); - Home Meds: 1. [place] 7.5-325 mg Oral tab qid prn 2. albuterol sulfate 2.5 mg /3 mL (0.083 %) Inhl nebu 4 times per day (Last dose: 06/12/2016) 3. albuterol sulfate 90 mcg/actuation Inhl aepb every 4 hours (Last dose: 06/12/2016) 4. alendronate 70 mg oral tab once wkly Tuesday 5. amlodipine 10 mg Oral tab 1 tab once daily (Last dose: 06/12/2016) 6. aspirin 81 mg Oral chew once daily (Last dose: 06/12/2016) 7. Calcium + Vitamin D 5oo/200 Oral twice a day (Last dose: 06/12/2016) 8. Colace 100 mg oral tab 1 cap 2 times per day takes 1 daily as needed (Last dose: 06/12/2016) 9. erythromycin 5 mg/gram (0.5 %) Opht oint 6 times per day 10. ferrous sulfate 325 mg (65 mg iron) Oral cpER daily 11. fluoxetine 60 mg Oral tab once daily (Last dose: 06/12/2016) 12. fluticasone-salmeterol 45-21 mcg/actuation inhalation HFAA 2 puffs 2 times per day 13. fluticasone 50 mcg/actuation nasal spsn 2 sprays once daily (Last dose: 06/11/2016) 14. furosemide 60 mg Oral tab 1.5 tab once daily (Last dose: 06/12/2016) 15. gabapentin 600 mg Oral tab 1 tab bid (Last dose: 06/12/2016) 16. loratadine 10 mg Oral tab 1 tab once daily (Last dose: 06/11/2016) 17. magnesium oxide 500 mg Oral cap nightly (Last dose: 06/11/2016) 18. Nitrostat 0.4 mg SL subl every 5 minutes prn (Last dose: 06/12/2016) 19. nystatin 100,000 unit/mL Oral susp 10 mL 4 times per day 20. oxybutynin chloride 15 mg Oral tr24 once daily (Last dose: 06/12/2016) 21. Protonix 40 mg Oral TbEC 1 tab once daily (Last dose: 06/12/2016) 22. oxygen NC 2 liters continuous 23. polyethylene glycol 3350 17 gram/dose oral powd once daily (Last dose: 06/12/2016) 24. prednisone 10 mg Oral tab once daily (Last dose: 06/12/2016) 25. Advair Diskus 250-50 mcg/dose Inhl dsdv 2 times per day (Last dose: 06/11/2016) 26. simvastatin 10 mg Oral tab 1 tab once daily (Last dose: 06/11/2016) 27. Spiriva with HandiHaler 18 mcg Inhl CpDv 1 cap once daily (Last dose: 06/11/2016) 28. trazodone 100 mg Oral tab 2 tabs nightly (Last dose: 06/11/2016) 29. Coumadin 5 mg oral tab once daily (Last dose: 06/11/2016) - PMHx: Cancer, Breast - Left; Cancer, Breast - Right; CHF; GERD; PE; Anxiety; COPD; - PSHx: Mastectomy- Bilateral; Tubal ligation; Ankle Arthroplasty, Left; Shoulder Arthroplasty, Left; lumbar surgery; - Social history: Smoking status: Patient states former smoker of tobacco. No barriers to communication noted, The patient speaks fluent Congolese. - : The pt / caregiver states he / she is on anticoagulants: coumadin. Home medication list is obtained from a discharge med list. - Exposure Risk Screening:: None identified. Screenin:31 Infection Control. deg 10:28 Fall Risk. jjr 10:28 Screening information is obtained from the patient. Fall risk: At risk due to age, The jjr following interventions are performed due to a positive Fall Risk Screen: Fall Alert bracelet is placed on the patient. Abuse/DV Screen: The patient / caregiver reports he/she is: not in a situation that causes fear, pain or injury. Nutritional screening: No deficits noted. Advance Directives: There is an active DNR order and the pt has a copy here at this time. home support is adequate. 10:36 Assistance ADL's: Requires assistance with meal preparation, this assistance is jjr provided by family members, bathing, assistance is provided by family members, dressing, assistance is provided by family members, toileting, assistance is provided by family members, housework, assistance is provided by family members, medication administration, assistance is provided by family members. Assessment: 10:18 Neurological: No deficits noted. Cardiovascular: Rhythm is sinus rhythm Chest pain jjr quality is stabbing, is located in substernal area episodes last 2-3 minutes. Respiratory: Airway is patent Respiratory effort is even, unlabored, Respiratory pattern is tachypnea. Derm: Skin is fragile, with poor turgor. 10:31 Cardiovascular: Edema is 1+ to left ankle. jjr 11:07 General: reports another episode of sharp substernal pain radiating to right anterior jjr chest lasting less than 2 minutes while in US, no chest pain currently, family at bedside. Cardiovascular: Rhythm is sinus rhythm with unifocal PVCs. Respiratory: Airway is patent Respiratory effort is even, unlabored. Derm: Skin is pink, warm & dry. 12:08 General: Appears in no apparent distress, Behavior is appropriate for age. jjr Neurological: No deficits noted. Cardiovascular: Rhythm is sinus rhythm. Respiratory: Airway is patent Respiratory effort is even, unlabored, Respiratory pattern is regular. Derm: Skin is pink, warm & dry. 12:17 General: this nurse told by dgtr as she is exiting room that patient is having jjr sharpness to substernal chest, provider informed will continue to monitor as other 2 episodes reported to this typewriter operator automatic have lasted less than 2 minutes with no changes noted to desk monitor. 12:25 General: pt now reporting decreased chest pain. jjr 12:42 General: called to room by family - daughters at bedside report mother is "shaking all pml over" in to assess pt. pt with scant tremor noted and as this typewriter operator automatic approached bedside pt began to shake violently all over the bed, lasting approx 5 seconds with no residual change in mental status. pt was immediately alert and oriented answering questions appropriately with clear speech following event. admitting md aware. 12:53 General: hospitalist to bedside. jjr 13:30 General: Appears in no apparent distress, sitting on edge of stretcher, tolerated lunch jjr tray and requesting coffee, family at bedside. Neurological: No deficits noted. Respiratory: Airway is patent Respiratory effort is even, unlabored, Respiratory pattern is regular. Derm: Skin is pink, warm & dry. 14:26 General: Appears in no apparent distress, dgtr reports another shaking episode occurred jjr and she assisted her from edge of bed to supine with rails up, pt denies pain at this time. Neurological: No deficits noted. Cardiovascular: Rhythm is sinus rhythm. Respiratory: Airway is patent Respiratory effort is even, unlabored, Respiratory pattern is regular. Derm: Skin is pink, warm & dry. 15:24 General: Appears in no apparent distress, no change from prior assessments. jjr Vital Signs: 09:46 BP 141 / 82; Pulse 95; Resp 24; Temp 96.9(O); Pulse Ox 91% on 2 lpm NC; Weight 86.18 jml1 kg; Height 5 ft. 2 in. (157.48 cm); Pain 8/10; 09:59 BP 203 / 86 (auto/); jjr 09:59 Pulse 82 MON; Pulse Ox 91% ; jjr 10:14 BP 178 / 81 (auto/); jjr 10:14 Pulse 86 MON; Pulse Ox 91% ; jjr 10:44 BP 185 / 81 (auto/); jjr 10:44 Pulse 76 MON; Pulse Ox 88% ; jjr 10:49 Pulse 74 MON; Pulse Ox 91% on 2 lpm NC; jjr 11:14 BP 138 / 63 (auto/); jjr 11:14 Pulse 74 MON; Resp 24; Pulse Ox 98% ; jjr 11:44 BP 146 / 67 (auto/); jjr 11:44 Pulse 84 MON; Resp 24; Pulse Ox 90% on 2 lpm NC; jjr 12:13 Pulse 100 MON; Pulse Ox 88% ; jjr 12:14 BP 117 / 91 (auto/); jjr 12:44 BP 126 / 60 (auto/); jjr 12:44 Pulse 94 MON; Resp 20; Pulse Ox 89% on 2 lpm NC; jjr 14:24 BP 129 / 75 (auto/); jjr 14:24 Pulse 80 MON; jjr 14:26 BP 129 / 75; Pulse 81; Resp 24; Temp 98.6(O); Pulse Ox 92% on 2 lpm NC; Pain 0/10; jjr 15:19 Pulse 80 MON; jjr 15:21 BP 137 / 62 (auto/); Resp 24; Pulse Ox 90% on 2 lpm NC; jjr 09:46 Body Mass Index 34.75 (86.18 kg, 157.48 cm) jml1 Vitals: 15:25 Log In Time N/A - ambulance arrival. jjr ED Course: 09:31 Patient visited by Tory Arizmendi, Event Coordinator Marketing And Sales. deg 09:31 Patient moved to Waiting deg 09:33 Wendy Isaac, RN is Primary Nurse. pml 09:33 Larissa Mckeon MD is Attending Physician. sd1 09:33 Patient visited by Larissa Mckeon MD. sd1 09:33 Patient moved to 18 pml 09:40 Triage Initiated jjr 09:47 Patient visited by Korey Williamson. jml1 09:50 EKG done. (by ED staff). Reviewed by Larissa Mckeon MD. jlf 09:56 Patient visited by Ruben eHrnandez PCA. jlf 09:57 Patient visited by Ruben Hernandez PCA. jlf 09:58 Patient visited by Ruben Heranndez PCA. jlf 09:58 Pt greeted and oriented to ED. Patient advised of names of staff involved in care, jlf location of call forrester, wait times and NPO status. desk monitor on. Pulse ox on. NIBP on. 10:23 Chest, 1 View Returned. EDMS 10:28 Maintain field IV. Dressing intact. Site clean & dry. Gauge & site: 20 gauge left AC. jjr O2 via nasal cannula \\T\\ 2L/min. 10:32 Patient moved to Ultrasound am10 10:37 Sputum Culture & Gram Stain Sent. jml1 10:37 -Blood Culture Sent. jml1 10:40 -Arterial Blood Gas Sent. js11 10:54 Patient moved to 18 am10 11:08 Patient visited by Wendy Isaac RN. jjr 11:21 -Influenza A&B Rapid Antigen - Nose Sent. jjr 11:34 US Lower Extremity R/O DVT Returned. EDMS 11:38 Lactic Acid (Laird tube on ice) Sent. jjr 11:38 DIFFERENTIAL NO CHARGE Sent. jjr 12:08 Patient visited by Wendy Isaac RN. jjr 12:14 Zain Moore is Hospitalizing Provider. sd1 12:21 Notified attending ED physician of Critical lab value. lactic 2.3. pml 12:41 T-Sheet-- Draft Copy was scanned into Smartax[employer] and attached to record. seh 12:47 CT Head Without Contrast Returned. EDMS 13:30 Patient visited by Wendy Isaac RN. jjr 14:27 No procedures done that require assistance. jjr 15:19 [facility] Payment Agreement was scanned into [employer] and attached to record. mm15 15:25 Patient visited by Wendy Isaac RN. jjr 15:25 The patient / caregiver is instructed regarding the plan of care and ED course. jjr Administered Medications: 10:18 Drug: Solu-MEDROL 125 mg [Solu-Medrol 500 mg intravenous solution (125 mg)] Route: IVP; jjr Site: left antecubital; 11:00 Drug: Albuterol-Ipratropium 1 neb [ipratropium-albuterol 0.5 mg-3 mg(2.5 mg base)/3 mL js11 nebulization soln (1 neb)] Route: Nebulizer; 11:18 Drug: Albuterol-Ipratropium 1 neb [ipratropium-albuterol 0.5 mg-3 mg(2.5 mg base)/3 mL js11 nebulization soln (1 neb)] Route: Nebulizer; 11:32 Drug: Albuterol-Ipratropium 1 neb [ipratropium-albuterol 0.5 mg-3 mg(2.5 mg base)/3 mL js11 nebulization soln (1 neb)] Route: Nebulizer; 12:07 Drug: cefTRIAXone 1 grams [ceftriaxone 1 gram solution for injection] Route: IVPB; jjr Infused Over: 30 mins; Site: left antecubital; Delivery: Syringe pump; 12:31 Follow up: IV Status: Completed infusion; IV Intake: 10ml jjr 12:32 Drug: azithromycin 500 mg [azithromycin 500 mg intravenous solution] Route: IVPB; jjr Infused Over: 1 hrs; Site: left antecubital; 13:34 Follow up: IV Status: Completed infusion; IV Intake: 250ml jjr Intake: 12:31 IV: 10.00ml; Total: 10.00ml. jjr 13:34 IV: 250.00ml; Total: 260.00ml. jjr RT: 10:40 ABG's drawn from left radial artery allens test done and positive pressure held for 5 js11 minutes no bleeding noted specimen sent pt. tolerated well. 11:00 Initial Med Neb Given as ordered Patient was instructed and evaluated on procedure js11 Patient tolerated procedure well without adverse effect. Respiratory: Breath sounds are diminished bilaterally. 11:19 Subsequent Med Neb Given as ordered Patient tolerated procedure well without adverse js11 effect. Respiratory: Breath sounds are diminished bilaterally. 11:32 Subsequent Med Neb Given as ordered Patient tolerated procedure well without adverse js11 effect. Respiratory: Breath sounds are diminished bilaterally. Order Results: Lab Order: -Arterial Blood Gas; SPEC'M 06/12/16 10:32 Test: ABG pH (ARTERIAL); Value: 7.461; Range: 7.350-7.450; Abnormal: Above high normal; Units: UNITS; Status: F Test: ABG PARTIAL PRESSURE CO2; Value: 47.3; Range: 35.0-45.0; Abnormal: Above high normal; Units: mmHg; Status: F Test: ABG PARTIAL PRESSURE O2; Value: 59.2; Range: 75.0-100.0; Abnormal: Below low normal; Units: mmHg; Status: F Test: ABG TOTAL CO2; Value: 34.4; Range: 23.0-31.0; Abnormal: Above high normal; Units: MEQ/L; Status: F Test: ABG HCO3; Value: 33.0; Range: 22.0-26.0; Abnormal: Above high normal; Units: MEQ/L; Status: F Test: ABG BASE EXCESS; Value: 8.1; Range: -2.0-2.0; Abnormal: Above high normal; Status: F Test: ABG STANDARD HCO3; Value: 31.8; Range: 22.0-26.0; Abnormal: Above high normal; Units: MEQ/L; Status: F Test: ABG O2 SATURATION; Value: 92.2; Range: 95.0-99.0; Abnormal: Below low normal; Units: %; Status: F Test: ABG DEVICE; Value: NASAL CARLOS; Status: F Lab Order: B-Type Natiuretic Peptide; SPEC' 06/12/16 09:59 Test: BRAIN NATRIURETIC PEPTIDE; Value: 133; Range: <100; Abnormal: Above high normal; Units: PG/ML; Status: F Lab Order: Basic Metabolic Profile; SPEC' 06/12/16 09:59 Test: GLUCOSE, FASTING; Value: 165; Range: 83-110; Abnormal: Above high normal; Units: MG/DL; Status: F Test: BLOOD UREA NITROGEN; Value: 27; Range: 7-18; Abnormal: Above high normal; Units: MG/DL; Status: F Test: CREATININE FOR GFR; Value: 1.74; Range: 0.55-1.02; Abnormal: Above high normal; Units: MG/DL; Status: F Test: GLOMERULAR FILTRATION RATE; Value: 30.2; Range: >39; Abnormal: Below low normal; Status: F Test: SODIUM LEVEL; Value: 145; Range: 136-145; Units: MEQ/L; Status: F Test: POTASSIUM SERUM; Value: 3.9; Range: 3.5-5.1; Units: MEQ/L; Status: F Test: CHLORIDE LEVEL; Value: 103; Range: 98-107; Units: MEQ/L; Status: F Test: CARBON DIOXIDE LEVEL; Value: 32; Range: 21-32; Units: MEQ/L; Status: F Test: ANION GAP; Value: 10; Range: 8-16; Units: MEQ/L; Status: F Test: CALCIUM LEVEL; Value: 8.8; Range: 8.8-10.2; Units: MG/DL; Status: F Test Note: ; Units are mL/min/1.73 m2 Chronic Kidney Disease Staging per NKF: Stage I & II GFR >=60 Normal to Mildly Decreased Stage III GFR 30-59 Moderately Decreased Stage IV GFR 15-29 Severely Decreased Stage V GFR <15 Very Little GFR Left ESRD GFR <15 on PREMIX CONCRETE BATCHER Lab Order: CBC with Diff; SPEC'M 06/12/16 09:59 Test: WHITE BLOOD COUNT; Value: 20.8; Range: 4.0-10.0; Abnormal: Above high normal; Units: K/mm3; Status: F Test: RED BLOOD COUNT; Value: 3.57; Range: 4.00-5.40; Abnormal: Below low normal; Units: M/mm3; Status: F Test: HEMOGLOBIN; Value: 10.8; Range: 12.0-16.0; Abnormal: Below low normal; Units: g/dl; Status: F Test: HEMATOCRIT; Value: 34.1; Range: 36.0-47.0; Abnormal: Below low normal; Units: %; Status: F Test: MEAN CORPUSCULAR VOLUME; Value: 95.7; Range: 80.0-96.0; Units: fl; Status: F Test: MEAN CORPUSCULAR HEMOGLOBIN; Value: 30.2; Range: 27.0-33.0; Units: pg; Status: F Test: MEAN CORPUSCULAR HGB CONC; Value: 31.6; Range: 32.0-36.5; Abnormal: Below low normal; Units: g/dl; Status: F Test: RED CELL DISTRIBUTION WIDTH; Value: 15.3; Range: 11.5-14.5; Abnormal: Above high normal; Units: %; Status: F Test: PLATELET COUNT, AUTOMATED; Value: 252; Range: 150-450; Units: k/mm3; Status: F Test: NEUTROPHILS; Value: 88; Range: 35-75; Abnormal: Above high normal; Units: %; Status: F Test: BANDS; Value: 7; Range: < 11; Units: %; Status: F Test: LYMPHOCYTES; Value: 2; Range: 16-52; Abnormal: Below low normal; Units: %; Status: F Test: MONOCYTES; Value: 3; Range: 0-8; Units: %; Status: F Test: POIKILOCYTOSIS; Value: 1+; Status: F Test: ANISOCYTOSIS; Value: 1+; Status: F Test: MICROCYTOSIS; Value: 1+; Status: F Lab Order: Cardiac Injury Profile; [facility] 06/12/16 09:59 Test: CPK CREATINE PHOSPHOKINASE; Value: 40; Range: 26-192; Units: U/L; Status: F Test: CK-MB VALUE MASS; Value: 1.0; Range: 0.0-3.6; Units: NG/ML; Status: F Test: MB/CK RELATIVE INDEX; Value: 2.50; Range: < OR =4; Status: F Test Note: ; DIAGNOSIS CRITERIA MMB ng/ml Relative Index (RI) NON-AMI < or = 5 N/A LAIRD ZONE > 5 < or = 4 AMI > 5 > 4 Lab Order: Troponin; [facility] 06/12/16 09:59 Test: TROPONIN I; Value: < 0.02; Range: < 0.10; Units: NG/ML; Status: F Test Note: ; Troponin I Reference Interval for [employer] LOCI: 99th Percentile= 0.00-0.045 ng/ml Risk Stratification: <= 0.10 ng/ml Decreased Risk for Adverse Clinical Events. 0.10-1.50 ng/ml Increased Risk for Adverse Clinical Events. Evaluation of additional criterion and/or repeat testing in 2-6 hours is suggested to rule out myocardial damage. >= 1.50 ng/ml Indicative of Myocardial Injury. Lab Order: Sputum Culture & Gram Stain; [facility] 06/12/16 10:33 Test: GRAM STAIN; Value: GRAM STAIN RESULT; Status: F Test: GRAM STAIN; Value: QUALITY: GOOD; Status: F Test: GRAM STAIN; Value: MANY WBCS; Status: F Test: GRAM STAIN; Value: FEW EPITHELIAL CELLS; Status: F Test: GRAM STAIN; Value: MANY GRAM POSITIVE COCCI IN PAIRS, CHAINS AND CLUSTERS; Status: F Test: GRAM STAIN; Value: MODERATE GRAM POSITIVE RODS; Status: F Test: GRAM STAIN; Value: FEW YEAST LIKE ORGANISM; Status: F Lab Order: PT/INR; SPEC'M 06/12/16 09:59 Test: PROTHROMBIN TIME; Value: 16.5; Range: 12.3-14.5; Abnormal: Above high normal; Units: SECONDS; Status: F Test: INR; Value: 1.32; Status: F Test Note: ; THERAPUTIC HUMAN INR VALUES INDICATIONS NORMAL RANGES PROPHYLAXIS/TREATMENT OF: VENOUS THROMBOSIS 2.0-3.0 PULMONARY EMBOLISM 2.0-3.0 PREVENTION OF SYSTEMIC EMBOLISM FROM: TISSUE HEART VALVES 2.0-3.0 ACUTE MYOCARDIAL INFARCTION 2.0-3.0 VALVULAR HEART DISEASE 2.0-3.0 ATRIAL FIBRILLATION 2.0-3.0 MECHANICAL VALVES(HIGH RISK) 2.5-3.5 RECURRENT MYOCARDIAL INFARCTION 2.5-3.5 Lab Order: PLATELET ESTIMATE; SPEC'M 06/12/16 09:59 Test: PLATELET ESTIMATE; Value: NORMAL; Range: NORMAL; Status: F Lab Order: -Influenza A&B Rapid Antigen - Nose; SPEC'M 06/12/16 11:20 Test: INFLUENZA A RAPID SCR by ICA; Value: INFLUENZA A RESULTS NEGATIVE; Status: F Test: INFLUENZA A RAPID SCR by ICA; Value: Comments:; Status: F Test: INFLUENZA B RAPID SCR by ICA; Value: INFLUENZA B RESULTS NEGATIVE; Status: F Test Note: ; The Influenza test is a direct rapid immunoassay for the qualitative detection of Influenza viral antigen. Cell culture (Viral Culture) testing should be considered to confirm NEGATIVE results and to assist in detecting other viruses that can provide similar clinical symptoms. Please contact the lab within 24 hours ([phone]) if confirmatory testing is desired. Lab Order: Lactic Acid (Laird tube on ice); SPEC'M 06/12/16 11:37 Test: LACTIC ACID LEVEL, LACTATE; Value: 2.3; Range: 0.4-2.0; Abnormal: Above upper panic limits; Units: MMOL/L; Status: F Lab Order: MAGNESIUM LEVEL; SPEC'M 06/12/16 09:59 Test: MAGNESIUM LEVEL; Value: 1.8; Range: 1.8-2.4; Units: MG/DL; Status: F Radiology Order: Chest, 1 View Test: Chest, 1 View REASON FOR EXAMINATION: Shortness of Breath; Clinical: Shortness of breath .; ; Comparison: 05/27/2016 .; ; Findings:; The mediastinum and cardiac silhouette are stable and within normal limits for; portable technique. The lung crump are clear without acute consolidation,; effusion, or pneumothorax. Skeletal structures are intact.; ; Impression:; Normal portable chest x-ray; ; ; Signed by; Abisai Reyes MD 06/12/2016 10:04 A; Radiology Order: US Lower Extremity R/O DVT Test: US Lower Extremity R/O DVT REASON FOR EXAMINATION: swelling; Clinical: Pain and swelling with shortness of breath .; ; Technique: Laird scale and color Doppler evaluation using linear high frequency; transducer.; ; Findings:; Ultrasound examination of the left lower extremity deep venous structures from; the common femoral vein to the popliteal vein demonstrates normal compressibility; flow and wave patterns in response to respiration and augmentation. There is no; evidence for deep venous thrombosis.; ; Impression:; No evidence for deep venous thrombosis.; ; ; Signed by; Abisai Reyes MD 06/12/2016 10:56 A; Radiology Order: CT Head Without Contrast Test: CT Head Without Contrast REASON FOR EXAMINATION: ?seizure; Clinical: Seizures.; ; Comparison: 11/25/2014 .; ; Findings:; Age-related atrophy and microvascular ischemic changes are appreciated along with; chronic scattered parenchymal calcifications. The ventricles and sulci are; symmetric. Laird-white differentiation is maintained. There is no evidence for; acute intracranial hemorrhage, mass/mass effect, pathology or infarction. No; extra-axial fluid collection. Calvarium is intact. Paranasal sinuses and; mastoid air cells are clear.; ; Impression:; Age related atrophy and microvascular ischemic changes.; No acute intracranial hemorrhage, infarction, or mass/mass effect.; ; ; Signed by; Abisai Reyes MD 06/12/2016 12:06 P; Outcome: 12:14 Decision to Hospitalize by Provider. sd1 15:24 Discharge Assessment: patient administered narcotics - no. The following High Risk jjr Discharge criteria are identified: None. Admitted to PCU accompanied by nurse, accompanied by tech, family with patient, via stretcher, with oxygen, on monitor, with chart. Condition: stable. CT Study completed. Property :Personal belongings accompany Pt. 15:25 Patient left the ED. jjr Signatures: Dispatcher [employer] EDMS Larissa Mckeon MD MD sd1 Tory Arizmendi, Event Coordinator Marketing And Sales Unit deg Gretchen Gil am10 Wendy Isaac, RN RN jjr Ari Galeana js11 Korey Williamson jml1 Abbie EstradaRN RN Jose Antonio Arcos mm15 Ruben Hernandez, ANISHA WHALE FISHERMAN Larissa Huang Corrections: (The following items were deleted from the chart) 10:27 09:41 Social history Smoking status: Patient uses tobacco products, current every day jjr smoker. No barriers to communication noted, The patient speaks fluent Congolese, jr 14:27 14:26 BP 129 / 75; Pulse 81bpm; Resp 18bpm; Pulse Ox 92% 2 lpm Nasal Cannula; Temp jjr 98.6F Oral; Pain 0/10; jjr Chart Complete MTDD
== END 2016-06-16 16:55 | disposition home or self-care (01) | DRG 191 ==
LOC: M ED 09:29 → M ED INP 13:12 → M PCU 15:31 → M MSPAV 06-13 18:00
PROVIDERS: ADMIT Internal Medicine; ATTEND Internal Medicine
DX: J44.1 Chronic obstructive pulmonary disease with (acute) exacerbation (principal); I50.32 Chronic diastolic (congestive) heart failure; J96.11 Chronic respiratory failure with hypoxia; N18.3 Chronic kidney disease, stage 3 (moderate); I12.9 Hypertensive chronic kidney disease with stage 1 through stage 4 chronic kidney disease, or unspecified chronic kidney disease; F32.9 Major depressive disorder, single episode, unspecified; E11.9 Type 2 diabetes mellitus without complications; K21.9 Gastro-esophageal reflux disease without esophagitis; Z66 Do not resuscitate; E66.9 Obesity, unspecified; I25.10 Atherosclerotic heart disease of native coronary artery without angina pectoris; Z79.01 Long term (current) use of anticoagulants; Z79.82 Long term (current) use of aspirin; Z79.899 Other long term (current) drug therapy; Z88.0 Allergy status to penicillin; Z88.1 Allergy status to other antibiotic agents; Z88.5 Allergy status to narcotic agent; Z87.891 Personal history of nicotine dependence; Z86.711 Personal history of pulmonary embolism; Z85.3 Personal history of malignant neoplasm of breast; Z99.81 Dependence on supplemental oxygen; R25.1 Tremor, unspecified; D72.829 Elevated white blood cell count, unspecified

== ENCOUNTER → 2016-06-24 | Outpatient (CLI) | payer MEDICARE ==
[~2016-06-24] MED LIST changes: +DELT1TAB PO; +E-Z-GAS II EFFERVESCENT PACKET (SODIUM BICARB./CITRIC ACID/SIMETHICONE) As Ordered ONE; +E-Z-HD 98% w/w 340GM SUSP BTL As Ordered ONE; +E-Z-PAQUE 96% w/w SUSP 176GM BTL As Ordered ONE; +WARF-23 PO
--- NOTE | 2016-06-24 15:05 | REP ---
Clinical: Dysphasia. Technique: Real time fluoroscopic evaluation using both single and double contrast barium technique. Findings: Oral phase of examination appears normal. 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 The mucosal pattern is otherwise relatively normal without ulcerations, polyps, evidence for mass lesion, stenosis or fixed narrowing. No hiatal hernia was identified. Total fluoroscopic time 1 minute 52 seconds. 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 Signed by Abisai Reyes MD 06/24/2016 02:57 P
== END ==
LOC: M RAD 08:29
PROVIDERS: ATTEND Emergency Medicine
DX: K22.4 Dyskinesia of esophagus (principal)

== ENCOUNTER 2016-07-16 22:51 | Inpatient (IN) | payer MEDICARE ==
[~2016-07-16] VITALS: Ht 157.5 cm; Wt 86.5 kg
[~2016-07-16 22:51] MED LIST changes: -E-Z-GAS II EFFERVESCENT PACKET (SODIUM BICARB./CITRIC ACID/SIMETHICONE) As Ordered ONE; -E-Z-HD 98% w/w 340GM SUSP BTL As Ordered ONE; -E-Z-PAQUE 96% w/w SUSP 176GM BTL As Ordered ONE; +FLUO40CA PO; -FLUO40CA57 PO
[2016-07-17] VITALS (7 sets, daily range): BP systolic 126–184; BP diastolic 59–86
[2016-07-17] MEDS ORDERED: LevoFLOXacin/DEXTROSE 750 MG/150 ML BAG (J1956) As Ordered ONE (00:08)
[2016-07-17 00:13] LABS: ANION GAP 10 MEQ/L (8-16); BLOOD UREA NITROGEN 65 MG/DL (7-18); CARBON DIOXIDE LEVEL 36 MEQ/L (21-32); CHLORIDE LEVEL 94 MEQ/L (98-107); CREATININE FOR GFR 1.91 MG/DL (0.55-1.02); DIFF SLIDE NUMBER 283; GLOMERULAR FILTRATION RATE 27.1 (>39); GLUCOSE, FASTING 247 MG/DL (83-110); MEAN CORPUSCULAR HEMOGLOBIN 30.6 pg (27.0-33.0); MEAN CORPUSCULAR HGB CONC 32.5 g/dl (32.0-36.5); MEAN CORPUSCULAR VOLUME 94.1 fl (80.0-96.0); PLATELET COUNT, AUTOMATED 315 k/mm3 (150-450); POTASSIUM SERUM 3.8 MEQ/L (3.5-5.1); RED CELL DISTRIBUTION WIDTH 16.2 % (11.5-14.5); SODIUM LEVEL 140 MEQ/L (136-145); WHITE BLOOD COUNT 11.8 K/mm3 (4.0-10.0)
[2016-07-17 00:31] LABS: INR 14.44
[2016-07-17 00:33] LABS: ABG BASE EXCESS 11.4 (-2.0-2.0); ABG DEVICE NASAL CANN; ABG HCO3 36.1 MEQ/L (22.0-26.0); ABG PARTIAL PRESSURE CO2 49.7 mmHg (35.0-45.0); ABG TOTAL CO2 37.6 MEQ/L (23.0-31.0); ABG pH (ARTERIAL) 7.479 UNITS (7.350-7.450)
[2016-07-17 00:44] LABS: BANDS 1 % (< 11); EOSINOPHILS 1 % (0-5); NUCLEATED RED BLOOD CELL 4 % (0-0)
[2016-07-17 00:45] LABS: ANISOCYTOSIS 1+
[2016-07-17] MEDS ORDERED: FURO1TAB15 PO (01:02)
[2016-07-17] MEDS ORDERED: CEFT500T3 PO (01:02)
[2016-07-17] MEDS ORDERED: PRED10TA PO (01:02)
[2016-07-17] MEDS ORDERED: OXYB15TA PO (01:02)
[2016-07-17] MEDS ORDERED: PHYTONADIONE 5 MG TAB PO ONE (01:45)
[2016-07-17] MEDS ORDERED: IPRATROPIUM 0.5MG/ALBUTEROL 2.5MG INH SOL UD 3ML (DUONEB)(J7620) NEB PRN (02:00)
[2016-07-17] MEDS ORDERED: ALBUTEROL 90 MCG/ACT 8GM HFA INHALER INH PRN (02:00)
[2016-07-17] MEDS ORDERED: ONDANSETRON 4MG/2ML VIAL (J2405) IV PRN (02:00)
[2016-07-17] MEDS ORDERED: NITROGLYCERIN 0.4 MG SUBL TABLET SL PRN (02:00)
--- NOTE | 2016-07-17 02:20 | REPUSA ---
CLINICAL HISTORY: Pneumonia. TECHNIQUE: Multiple axial brain CT scan sections were obtained from base to vertex without contrast a dministration. COMMENTS: The study shows normal configuration of sella turcica. There are no intra or extra-axial collections. There is no mass effect or midline shift. There is no evidence of hematoma formation. No hydrocephal us is present. No abnormal calcifications are noted. No significant abnormalities are seen either in the posterior fossa or supratentorial compartment. The sinuses and mastoid air cells are patent. IMPRESSION: No evidence of acute intracranial pathology. Thank you for your kind referral of this patient.
[2016-07-17] MEDS ORDERED: FUROSEMIDE 40 MG/4 ML VIAL (J1940) IV SCH (02:27)
[2016-07-17] MEDS ORDERED: PHYTONADIONE 10MG/ML INJECTION (J3430) IV SCH (02:27)
--- NOTE | 2016-07-17 02:40 | REPUSA ---
CLINICAL HISTORY: Suspected pneumonia. TECHNIQUE: Multiple axial CT images were obtained through chest without IV contrast material. MPR cor onal and sagittal sequences were obtained. COMMENTS: Bilateral basilar atelectatic pulmonary changes. Moderate pulmonary emphysema. Mild subsegmental atelectasis in the left lower lobe. There is no evidence of pleural or parenchymal mass. There are no pleural effusions. There is no evid ence of hilar or mediastinal lymphadenopathy. The heart and great vessels are within normal limits. The visualized portions of the liver are of uniform attenuation without mass or defect. There is no i ntra or extrahepatic biliary ductal dilatation. The spleen is unremarkable. The visualized pancreas i s of normal contour and attenuation characteristics. There is no evidence of adrenal mass. The visual ized portions of the kidneys present no abnormalities. The bony structures are free of lytic or blastic lesions. Multilevel degenerative changes are seen in volving the thoracic spine. Scattered calcifications are seen involving the aorta and visualized maicol r branches compatible with atherosclerosis. Small sliding hernia. IMPRESSION: Mild subsegmental atelectasis in the left lower lobe. Thank you for your kind referral of this patient.
[2016-07-17 03:01] LABS: RETIC HEMOGLOBIN CONTENT CHr 35.4 PG (24-36); RETICULOCYTE ABSOLUTE ADVIA212 86 x10(9)/L (17-77)
[2016-07-17 03:03] LABS: REASON FOR REVIEW ANEMIA / RBC MORPH
[2016-07-17 03:20] LABS: FERRITIN 74 NG/ML (8-252); PERCENT SATURATION 25.3 % (13.2-37.4); TOTAL IRON BINDING CAPACITY 296 UG/DL (250-450)
[2016-07-17] MEDS: guaiFENesin ER 600 MG TAB PO SCH ×3 (04:02→20:25)
[2016-07-17] MEDS: PANTOPRAZOLE 40MG INJ (PROTONIX) (C9113) IV SCH ×3 (04:03→20:25)
[2016-07-17] MEDS: SENOKOT S TAB PO SCH ×3 (04:03→20:25)
[2016-07-17] MEDS: GABAPENTIN 300 MG CAP PO SCH ×3 (04:03→20:24)
[2016-07-17] MEDS ORDERED: methylPREDNISolone INJ 125 MG/2 ML VIAL (J2930) As Ordered ONE ×2 (04:06→12:00)
[2016-07-17] MEDS ORDERED: LORATADINE 10 MG TAB As Ordered ONE (04:06)
[2016-07-17] MEDS ORDERED: traZODone 100 MG TAB As Ordered ONE (04:07)
[2016-07-17] MEDS ORDERED: ATORVASTATIN 20 MG TAB As Ordered ONE (04:07)
[2016-07-17] MEDS: ATORVASTATIN 20 MG TAB PO SCH ×2 (04:20→20:25)
[2016-07-17] MEDS: FLUTICASONE PROP 0.05% NASAL SPRAY 16 GM (FLONASE) SCH ×2 (04:20→20:25)
[2016-07-17] MEDS: traZODone 100 MG TAB PO SCH ×2 (04:21→20:24)
[2016-07-17] MEDS: LORATADINE 10 MG TAB PO SCH ×2 (04:21→20:25)
[2016-07-17] MEDS: methylPREDNISolone INJ 125 MG/2 ML VIAL (J2930) IV SCH ×3 (04:45→23:04)
[2016-07-17] MEDS: CEFTAROLINE FOSAMIL 300 MG in D5W 50 ML IV SCH ×2 (04:45→16:19)
--- NOTE | 2016-07-17 04:46 | HPE ---
DATE OF ADMISSION: 07/17/2016 PRIMARY CARE PROVIDER: Dr. David Lee. WIRE COATING OPERATOR METAL: Dr. Valentine. COUNSELING PSYCHOLOGIST: Dr. Curry. CHIEF COMPLAINT: Shortness of breath, generalized weakness. HISTORY OF PRESENT ILLNESS: This is a 75-year-old female patient with underlying medical history of anxiety, bilateral breast cancer, chronic obstructive pulmonary disease (COPD) on 2 liters oxygen at home at baseline, pulmonary embolus (PE) on Coumadin with also inferior vena cava (IVC) filter, depression, chronic kidney disease (CKD) stage IV, gastroesophageal reflux disease (GERD), congestive heart failure (CHF), last echocardiogram 2013 with ejection fraction of 65%, likely diastolic dysfunction. Patient presented today with progressively worsening cough, shortness of breath, productive of green sputum. Patient on oxygen at home. Furthermore, patient has been reporting generalized weakness, poor oral intake. Has been having supratherapeutic INR, a week ago INR of 5. Also as per patient, since she has not improved and has been treated with multiple courses of antibiotics oral and intravenous (IV) with no significant improvement. Also left-sided conjunctival hemorrhage has been going on for a while and also has been noticing bruising on skin on her hands and her feet. Denies noticing diarrhea, melena. Does report constipation. Denies any chest pain, pressure or discomfort. Does have chronic lower extremity edema. As per patient, her Lasix dose has been increased lately. Denies any sick contact. ALLERGIES: Patient reported allergy to AMOXICILLIN, LISINOPRIL, OXYCODONE, PENICILLIN, SULFA DRUGS, TEMAZEPAM. PAST MEDICAL HISTORY: 1. PE. 2. Anxiety. 3. Breast cancer. 4. CHF with diastolic dysfunction, ejection fraction (EF) of 65%. 5. GERD. 6. COPD on oxygen at home. 7. CKD. 8. Obesity. PAST SURGICAL HISTORY: 1. Bilateral mastectomy. 2. Tubal ligation. 3. Ankle arthroplasty. 4. Left shoulder arthroplasty. 5. Left ankle arthroplasty. 6. IVC filter placement. Also, known history of overdose and suicide attempts. SOCIAL HISTORY: Patient denies history of drinking. Former smoker, quit about 5 years ago, two pack per day smoking history for 50 years. No illicit substance use. FAMILY HISTORY: Noncontributory. REVIEW OF SYSTEMS: Negative except for those mentioned in the history of present illness (HPI). HOME MEDICATIONS: - [place] 7.5/325 mg four times a day as needed - Ventolin inhalers every 4 hours as needed - DuoNebs inhalation every 4 hours as needed - alendronate 75 mg by mouth every Tuesday - Norvasc 10 mg by mouth daily - aspirin 81 mg by mouth daily - calcium/vitamin D one tablet by mouth twice a day - Ceftin 500 mg by mouth twice a day - Colace 100 mg by mouth twice a day - ferrous sulfate 325 mg by mouth daily - fluoxetine 60 mg by mouth daily - Flonase nasal spray nightly - Lasix 80 mg by mouth daily - Neurontin 600 mg by mouth twice a day - Claritin 10 mg by mouth nightly - magnesium 500 mg by mouth nightly - nitroglycerin 0.4 mg sublingually as needed - Nystatin swish and spit four times a day - oxybutynin 15 mg by mouth daily - Protonix 40 mg by mouth daily - MiraLAX 17 grams by mouth daily - prednisone 10 mg by mouth daily - Advair Diskus 250/50 mcg inhalation twice a day - Zocor 10 mg by mouth nightly - Spiriva inhalation daily - trazodone 200 by mouth nightly - Coumadin 5 mg by mouth every evening PHYSICAL EXAMINATION: VITAL SIGNS: Blood pressure 147/84, pulse 92, respirations 22, temperature 98.7, pulse oximetry 90% on 2 liter nasal cannula. GENERAL: Patient obese, alert and oriented times three in no acute distress with mild cough. HEENT: Normocephalic, atraumatic. Left conjunctival hemorrhage. PULMONARY: Bilateral rhonchi. NECK: Supple. CARDIAC: Atrial fibrillation with a rate of 100. T-wave inversion V4, V5. ABDOMEN: Obese, soft, nontender. EXTREMITIES: 2+ edema bilateral lower extremities. Foot bruising and hand bruising noted. LABORATORY: WBC 11.8, hemoglobin and hematocrit 7.8/24.2, platelets 315. Chemistry: Sodium 140, potassium 3.8, chloride 94, BUN 65, creatinine 1.9. Troponin negative. C-reactive protein 3.77. B-natruretic peptide 86.4. CT of the chest shows mild subsegmental atelectasis of left lower lobe. CT of the head shows no evidence of acute intracranial pathology. No hemorrhage noted. ASSESSMENT AND PLAN: This is a 75-year-old female patient with underlying medical history of breast cancer, anxiety, congestive heart failure (CHF) with diastolic dysfunction, ejection fraction of 65%, chronic obstructive pulmonary disease (COPD) on oxygen and steroid dependent, 2 liters oxygen at home, pulmonary embolus (PE) also with inferior vena cava (IVC) filter on anticoagulation, chronic kidney disease (CKD), history of gastrointestinal (GI) bleed. Patient admitted with shortness of breath, generalized weakness and supratherapeutic INR and acute blood loss anemia. 1. Shortness of breath. Possibly secondary to acute COPD exacerbation with underlying diastolic CHF. Will get echocardiogram, cardiac enzymes. Telemetry monitoring. Continue oxygen supplementation. Management for CHF and COPD as below. Also possibly secondary to anemia. Management of anemia as below. 2. Acute blood loss anemia in the setting of supratherapeutic INR. Holding Coumadin. Vitamin K given. Transfuse one unit of packed red blood cells (PRBC). Monitor hemoglobin and hematocrit. Patient is normotensive at this time. Followup fecal occult. Anemia workup has been sent. Transfuse as needed. Protonix twice a day. One unit PRBC ordered. Clear liquid diet for now. Bed rest for now given patient with supratherapeutic INR. Continue to monitor. 3. Supratherapeutic INR. Holding Coumadin. Vitamin K intravenously (IV) has been given. Followup INR. Followup hemoglobin and hematocrit. CT scan to rule out any intracranial hemorrhage. Will continue to monitor. 4. Acute COPD exacerbation. Possibly secondary to underlying pneumonia versus pulmonary hypertension. Followup echocardiogram to estimate pulmonary hypertension. IV Solu-Medrol. Teflaro. Cultures. Respiratory panel. Blood cultures. Sputum cultures. Nebulizer treatments. Inhalers as ordered, Spiriva, Advair. The pharmacy does not have Advair at this time. Will switch to Symbicort for now. Will continue to monitor. Acapella. Oxygen supplementation. 5. Bilateral lower extremity edema that is worsening in the setting of shortness of breath. Will get ultrasound, bilateral lower extremity Dopplers, x-ray to assess position of IVC filter. Patient has supratherapeutic INR. Will give the patient Lasix after transfusion. Continue home Lasix dose. Followup echocardiogram as well. Strict intake and output (I and O), daily weight. 6. Elevation of creatinine, acute on chronic renal insufficiency, baseline CKD stage IV. Followup urine, ultrasound, strict I and O, daily weight. Transfuse one unit PRBC. Followup BUN and creatinine. Adjust diuretic as needed. Will consider nephrology consultation if patient's condition does not improve. 7. Depression and history of suicide attempts. Continue home medication. 8. Hypertension. Continue home medication. 9. Dyslipidemia. Continue home medication. 10. History of acute CHF exacerbation with diastolic dysfunction. Ejection fraction (EF) of 65%. Repeat echocardiogram. Continue Lasix, strict I and O. Possibly lower extremity edema due to pulmonary hypertension versus CHF. B-natruretic peptide was normal. Likely falsely low due to obesity. History of CHF and coronary arterial disease, holding aspirin given patient with acute blood loss anemia secondary to supratherapeutic INR. 11. Obesity complicating care. 12. Gastroesophageal reflux disease (GERD). Continue proton pump inhibitor (PPI). 13. Anxiety. Continue home medication. 14. History of PE. Patient has an IVC filter with supratherapeutic INR. Coumadin on hold. Vitamin K given. Continue to follow INR. Will consider restarting Coumadin on lower dose once INR is below 3. 15. Deep venous thrombosis (DVT) prophylaxis. Patient has supratherapeutic INR. DISPOSITION: Patient with multiple comorbidities, poor overall prognosis. DO NOT RESUSCITATE/DO NOT INTUBATE. Pending clinical improvement and further workup and stable hemoglobin and hematocrit.
[2016-07-17] MEDS ORDERED: PHYTONADIONE 10MG/ML INJECTION (J3430) As Ordered ONE (04:47)
--- NOTE | 2016-07-17 05:10 | REPUSA ---
CLINICAL HISTORY: Pain. TECHNIQUE: Realtime sonographic images were obtained in multiple projections. COMMENTS: The right kidney measures 10.6x6.1x5.2 cm and the left kidney measures 10.1x4.4x5.1 cm. Both kidn eys are free of hydronephrosis. There is no evidence of solid or cystic mass. There is no perinephric fluid. There is no renal calculus. IMPRESSION: Normal study. Thank you for your kind referral of this patient.
[2016-07-17 06:51] LABS: MEAN CORPUSCULAR HEMOGLOBIN 29.6 pg (27.0-33.0); MEAN CORPUSCULAR HGB CONC 31.9 g/dl (32.0-36.5); MEAN CORPUSCULAR VOLUME 92.7 fl (80.0-96.0); RED CELL DISTRIBUTION WIDTH 16.1 % (11.5-14.5); WHITE BLOOD COUNT 11.9 K/mm3 (4.0-10.0)
[2016-07-17 07:15] LABS: CALCIUM LEVEL 8.4 MG/DL (8.8-10.2); CREATININE FOR GFR 1.72 MG/DL (0.55-1.02); GLOMERULAR FILTRATION RATE 30.6 (>39); MAGNESIUM LEVEL 1.7 MG/DL (1.8-2.4); POTASSIUM SERUM 3.6 MEQ/L (3.5-5.1)
[2016-07-17] MEDS: SYMBICORT 160/4.5MCG INHALER 6GM INH SCH ×2 (07:17→20:04)
[2016-07-17] MEDS: IPRATROPIUM 0.5MG/ALBUTEROL 2.5MG INH SOL UD 3ML (DUONEB)(J7620) NEB SCH ×3 (07:18→20:00)
[2016-07-17] MEDS: TIOTROPIUM INHALER/CAPSULE (SPIRIVA) INH SCH (07:18)
--- NOTE | 2016-07-17 08:14 | REP ---
KUB: Single view. HISTORY: Inferior vena cava filter. Comparison KUB study is from May 19, 2015. FINDINGS: There is some orally administered barium in the tip of the cecum. Moderate stool is seen in the colon. A vena cava filter is again noted over the lumbar spine at approximately L3-4. There are diffuse degenerative disc changes in the lumbar spine and a levoconvex curvature is seen. Flank stripes are intact. Psoas margins are symmetric. IMPRESSION: IVC filter noted in place unchanged from 2015. Moderate colonic stool. Signed by Roberto Velazquez MD 07/17/2016 10:06 A
--- NOTE | 2016-07-17 08:16 | REP ---
CHEST X-RAY: Two views. HISTORY: Shortness of breath. Comparison study July 06, 2016. FINDINGS: There is coarse bibasilar plate-like atelectasis. Lungs are hyperinflated. Increased density is seen in the lingular segment of the left upper lobe on lateral radiograph consistent with plate-like atelectasis here as well. There are degenerative changes in the thoracic spine. Pleural angles are sharp. Heart is not felt to be enlarged. IMPRESSION: Coarse bilateral lower lobe and lingular plate-like atelectasis. Hyperinflation. Signed by Roberto Velazquez MD 07/17/2016 10:06 A
[2016-07-17] MEDS: FUROSEMIDE 80 MG TAB PO SCH (09:00)
[2016-07-17] MEDS ORDERED: ADVAIR DISKUS 250/50 INH PWD INH SCH (09:00)
[2016-07-17] MEDS ORDERED: FUROSEMIDE 40 MG/4 ML VIAL (J1940) As Ordered ONE (10:00)
[2016-07-17] MEDS: FERROUS SULFATE 325MG TAB PO SCH (10:01)
[2016-07-17] MEDS: oxyBUTYnin *DITROPAN XL* 5 MG TABCR PO SCH (10:01)
[2016-07-17] MEDS: MIRALAX *UNIT DOSE* 17GM PACKET PO SCH (10:02)
[2016-07-17] MEDS: FLUoxetine 20 MG CAP PO SCH (10:02)
[2016-07-17] MEDS: amLODIPine 10 MG TAB PO SCH (10:04)
--- NOTE | 2016-07-17 10:10 | REP ---
Duplex extremity venous ultrasound: Bilateral lower extremity. History: Shortness of breath. Question DVT. Findings: The deep veins are anechoic and fully compressible from the groin to the popliteal fossa in the right and left lower extremity. Color flow imaging is homogeneous. Spectral Doppler interrogation demonstrates intact respiratory variation in flow and normal manual augmentation of flow. There is no evidence of deep vein thrombosis. Impression: Negative bilateral lower extremity duplex venous ultrasound. No evidence of deep vein thrombosis. Signed by Roberto Velazquez MD 07/17/2016 10:01 A
[2016-07-17 11:25] LABS: OSMOLALITY URINE 484 MOSM/KG (500-800)
[2016-07-17 13:15] LABS: INR 1.48
--- NOTE | 2016-07-17 13:16 | IPN ---
DATE OF SERVICE: 07/17/2016 Ms. Delacruz feels about the same as she did last night. She is still short of breath. She is not complaining of any pain. She is currently not coughing, is frustrated at being back in the hospital. Temperature 961.1, pulse 88, respiratory rate 20, blood pressure 110/34, 94% on 2 liters. Intake and output is notable for a negative fluid balance of minus 200. Weight is 86 kilos. She is awake, appropriately interactive, clearly remembers me from previous encounters. Mucous membranes moist. Neck supple, thick. Breathing is symmetrical, diminished throughout. Inspiratory to expiratory ratio (I:E) is 1:3. No wheezes. Upper airway sounds are noted. Heart is distant sounding. Normal S1, S2. Abdomen soft, doughy, nontender. There is no ecchymosis on her back, but there is multiple ecchymotic lesions on her arms and legs. White cell count is 11.9, hemoglobin 6.8 as of 6:30 this morning, and platelets of 278. INR 14.4. BUN 63, creatinine 1.72 and improving. A blood gas shows pH 7.47, pCO2 49, pO2 66, bicarbonate 36. Urinalysis is pending. Stool is pending. Sputum is pending. Respiratory panel was negative by polymerase chain reaction (PCR). Renal ultrasound was unremarkable. Lower extremity Doppler showed no evidence of deep venous thrombosis (DVT). Chest CT was notable for mild, subsegmental atelectasis in the left lower lobe. ASSESSMENT: This is a 75-year-old with multiple medical issues, who was seen in the emergency department pending availability of a bed on the progressive care unit (PCU). PLAN: 1. Patient presented with shortness of breath. This is thought to be related to a chronic obstructive pulmonary disease (COPD) exacerbation with underlying diastolic dysfunction. 2D echocardiogram has not been done recently and repeat is pending. Will be monitored on telemetry. Continue with oxygen supplementation and treat with intravenous (IV) Solu-Medrol and empiric antibiotics. The possibility of a developing pneumonia is considered. Acapella device as ordered. 2. The patient has acute blood-loss anemia in the setting of grossly elevated INR. Vitamin K has been given. Packed red blood cells have been transfused. Will repeat hemoglobin and hematocrit (H and H) at 1:00 p.m. along with PT/INR. May benefit from fresh frozen plasma. There is no obvious active bleeding at this point. 3. Patient has lower extremity edema. No evidence of deep venous thrombosis (DVT). Patient had an elevated creatinine, which is improving. 4. Patient has history of acute congestive heart failure (CHF) exacerbation due to diastolic dysfunction. Has been given Lasix after her transfusion. 5. Patient has obesity, which complicates care. 6. Patient has a history of pulmonary embolism (PE). 7. Deep venous thrombosis (DVT) prophylaxis will be in the form of a supratherapeutic INR.
--- NOTE | 2016-07-17 17:17 | EDDOCDS ---
Nurse's Notes [facility] Name: Isidra Delacruz Age: 75 yrs Sex: Female : 1940 Arrival Date: 07/16/2016 Time: 22:51 Bed Admit Hold Private MD: Diagnosis: Pneumonia, unspecified organism;Shortness of breath Presentation: 07/16 22:58 Presenting complaint: EMS states: chest cold since [place]. Productive cough ko2 developed shortness of breath with movement today. On Cefuroxime 500 mg and Lasix was increased from 60 mg to 80 mg by primary care provider. Suicide/Homicide risk assessment- the patient denies having any suicidal and/or homicidal ideations and does not present with any other emotional, behavioral or mental health complaints. Status: Patient is not a press service reader or dependent. Transition of care: patient was not received from another setting of care. Care prior to arrival: See EMS report. Medications administered prior to arrival: Nebulized Albuterol. 22:58 Acuity: GALA Level 3 ko2 22:58 Method Of Arrival: Ambulance ko2 07/17 00:15 Adult Sepsis Screening: The patient does not have new or worsening altered mentation. ko2 Patient's respiratory rate is less than 22. Systolic blood pressure is greater than 100. Patient has a qSOFA score of 0- Negative Sepsis Screen. Triage Assessment: 07/16 23:08 General: Appears ill, Behavior is appropriate for age, cooperative. Pain: Denies pain. ko2 Neurological: Level of Consciousness is awake, alert, Oriented to person, place, time. Respiratory: Onset: The symptoms/episode began/occurred gradually, Airway is patent Respiratory effort is even, unlabored, Respiratory pattern is regular, symmetrical, Breath sounds are coarse Breath sounds with crackles Breath sounds with rhonchi Reports cough that is non-productive. GI: Abdomen is non- distended. Derm: Skin is normal, skin tear to right hand. Musculoskeletal: Range of motion intact in all extremities. Historical: - Allergies: Amoxicillin (Hives); Lisinopril (Swelling, Anaphylaxis); Oxycodone HClagitation; SULFA (SULFONAMIDES) (Hives); Temazepam (Swelling); - Home Meds: 1. Advair Diskus 250-50 mcg/dose Inhl dsdv 2 times per day 2. albuterol sulfate 2.5 mg /3 mL (0.083 %) Inhl nebu 4 times per day 3. albuterol sulfate 90 mcg/actuation Inhl aepb every 4 hours 4. alendronate 70 mg oral tab once wkly Tuesday 5. amlodipine 10 mg Oral tab 1 tab once daily 6. aspirin 81 mg Oral chew once daily 7. Calcium + Vitamin D 5oo/200 Oral twice a day 8. Colace 100 mg oral tab 1 cap 2 times per day takes 1 daily as needed 9. Coumadin 5 mg Oral tab once daily 10. erythromycin 5 mg/gram (0.5 %) Opht oint 6 times per day 11. ferrous sulfate 325 mg (65 mg iron) Oral cpER daily 12. fluoxetine 60 mg Oral tab once daily 13. fluticasone 50 mcg/actuation nasal spsn 2 sprays once daily 14. fluticasone-salmeterol 45-21 mcg/actuation inhalation HFAA 2 puffs 2 times per day 15. furosemide 80 mg oral tab 1 tab once daily 16. gabapentin 600 mg Oral tab 1 tab bid 17. loratadine 10 mg Oral tab 1 tab once daily 18. magnesium oxide 500 mg Oral cap nightly 19. Nitrostat 0.4 mg SL subl every 5 minutes prn 20. Patterson 7.5-325 mg Oral tab QID prn 21. nystatin 100,000 unit/mL Oral susp 10 mL 4 times per day 22. oxybutynin chloride 15 mg Oral tr24 once daily 23. oxygen NC 2 liters continuous 24. polyethylene glycol 3350 17 gram/dose oral powd once daily 25. prednisone 10 mg Oral tab once daily 26. Protonix 40 mg Oral TbEC 1 tab once daily 27. simvastatin 10 mg Oral tab 1 tab once daily 28. Spiriva with HandiHaler 18 mcg Inhl CpDv 1 cap once daily 29. trazadone 100 mg 100 mg daily 30. trazodone 100 mg Oral tab 2 tabs nightly 31. Cefuroxime Oral 500 mg - PMHx: Anxiety; Cancer, Breast - Left; Cancer, Breast - Right; CHF; GERD; COPD; PE; - PSHx: Mastectomy- Bilateral; Tubal ligation; Ankle Arthroplasty, Left; Shoulder Arthroplasty, Left; - Social history: Smoking status: Patient states former smoker of tobacco. No barriers to communication noted, The patient speaks fluent Estonian, Speaks appropriately for age. - Family history: Not pertinent. - : The pt / caregiver states he / she is not on anticoagulants. Home medication list is obtained from the patient, [employer] import data. - Exposure Risk Screening:: None identified. Screenin/04 00:14 Screening information is obtained from the patient. Fall risk: At risk due to age. ko2 Assistance ADL's: Requires assistance with meal preparation, this assistance is provided by family members, bathing, assistance is provided by family members, dressing, assistance is provided by family members, toileting, assistance is provided by family members, ambulation, assistance is provided by family members, housework, assistance is provided by family members, medication administration, assistance is provided by family members. Abuse/DV Screen: The patient / caregiver reports he/she is: not in a situation that causes fear, pain or injury. Nutritional screening: No deficits noted. Advance Directives: Currently, there is There is an active DNR order and the pt has a copy here at this time. home support is adequate. Assessment: 07/16 23:16 General: See triage assessment. ko2 07/17 00:13 General: Appears in no apparent distress, comfortable, Behavior is appropriate for age, ko2 cooperative. Pain: Denies pain. Neurological: Level of Consciousness is awake, alert. Cardiovascular: Rhythm is. Respiratory: Airway is patent Respiratory effort is even, unlabored, Breath sounds are coarse bilaterally. Breath sounds with rhonchi. Derm: Skin is normal. 01:13 General: Appears in no apparent distress, comfortable, Behavior is appropriate for age, ko2 cooperative. Neurological: Level of Consciousness is awake, alert. Respiratory: Airway is patent Respiratory effort is even, unlabored. Derm: Skin is normal. 02:04 General: Appears in no apparent distress, comfortable, Behavior is appropriate for age, ko2 cooperative. Pain: Denies pain. Neurological: Level of Consciousness is awake, alert. Respiratory: Airway is patent Respiratory effort is even, unlabored. Derm: Skin is normal. 03:19 General: Appears in no apparent distress, comfortable, Behavior is appropriate for age, ko2 cooperative. Neurological: Level of Consciousness is awake, alert. Respiratory: Airway is patent Respiratory effort is even, unlabored. Derm: Skin is normal. 03:19 General: Report given to Isabel Dahl, RN [facility] Nurse. See [facility] for further ko2 documentation. 09:12 Cardiovascular: Rhythm is sinus rhythm. [facility] Vital Signs: 07/16 23:08 BP 161 / 72 LA Sitting (auto/reg); Pulse 99 MON; Resp 22 S; Temp 98.7(TE); Pulse Ox 93% cln on 2 lpm NC; Weight 86.18 kg (R); Height 5 ft. 2 in. (157.48 cm) (R); Pain 0/10; 23:23 BP 169 / 75 (auto/); ko2 23:23 Pulse Ox 92% ; ko2 23:39 BP 154 / 89 (auto/); ko2 23:40 Pulse 102 MON; Pulse Ox 92% ; ko2 23:54 BP 146 / 79 (auto/); ko2 23:54 Pulse 94 MON; Pulse Ox 91% ; ko2 02 00:09 BP 147 / 84 (auto/); ko2 00:12 Pulse 92 MON; Pulse Ox 90% ; ko2 00:23 Pulse 92 MON; Pulse Ox 90% ; ko2 00:24 BP 145 / 81 (auto/); ko2 00:38 Pulse 92 MON; Pulse Ox 92% ; ko2 00:39 BP 186 / 89 (auto/); ko2 00:53 Pulse 96 MON; Pulse Ox 92% ; ko2 00:54 BP 175 / 80 (auto/); ko2 01:07 Pulse 92 MON; Pulse Ox 94% ; ko2 01:09 BP 160 / 81 (auto/); ko2 07/16 23:08 Body Mass Index 34.75 (86.18 kg, 157.48 cm) cln Vitals: 00:15 Log In Time N/A - ambulance arrival. ko2 ED Course: 07/16 22:53 Patient visited by Jam Romero, Quality Control Engineer. ml3 22:53 Candi Beltran,LEYDA is Primary Nurse. ml3 22:53 Annalisa Zaman,LEYDA is Primary Nurse. ml3 22:53 Tashia Wagner FNP is PHCP. le 22:53 Patient moved to Waiting ml3 22:53 Patient moved to 17 ml3 23:00 Triage Initiated ko2 23:09 Patient visited by Tashia Wagner FNP. le 23:09 Pt greeted and oriented to ED. Patient advised of names of staff involved in care, cln location of call forrester, wait times and NPO status. 23:24 EKG done. (by ED staff). Reviewed by Tashia CORDOVA. cln 23:25 Patient has correct armband on for positive identification. Placed in gown. Bed in low cln position. Call light in reach. Side rails up X 1. 23:28 Patient visited by Tashia Wagner FNP. le 23:35 -Blood Culture Sent. mlc 23:35 B-Type Natiuretic Peptide Sent. mlc 23:35 Basic Metabolic Profile Sent. mlc 23:35 CBC with Diff Sent. mlc 23:35 Cardiac Injury Profile Sent. mlc 23:35 Troponin Sent. mlc 07/17 00:13 Patient visited by Annalisa Zaman RN. ko2 00:15 The patient / caregiver is instructed regarding the plan of care and ED course. ko2 00:15 Inserted saline lock: 20 gauge in right antecubital area. No procedures done that ko2 require assistance. 00:22 Rita Mayorga is Hospitalizing Provider. le 00:33 Dr Mayorga notified of PT 105.3 and INR 14.44. ko2 01:29 DIFFERENTIAL NO CHARGE Sent. ko2 02:04 [facility] [place] [facility] Payment Agreement was scanned into [email or web address] and attached to record. [facility] 02:34 Patient moved to Admit Hold ml3 02:53 CT Head without contrast Returned. EDMS 02:53 CT Chest without contrast Returned. EDMS 03:11 Patient moved to Jun 04:40 Primary Nurse role handed off by Candi Beltran RN ko2 04:50 Inserted saline lock: 20 gauge in left antecubital area The patient tolerated the jun procedure well. 04:51 Patient moved to Admit Hold ml3 05:13 RENAL US Returned. EDMS 07:44 Primary Nurse role handed off by Annalisa Zaman,LEYDA ar3 08:49 Abdomen,Flat Plate KUB Returned. EDMS 08:49 Chest, 2 View (pa\E\lat) Returned. EDMS 09:12 Patient visited by Beau Vargas, LEYDA. bcj 10:43 Duplex, Ext LOWER veins, bilat Returned. EDMS 17:09 Patient visited by Chester Segundo, LEYDA. ml6 Administered Medications: 00:13 Drug: levofloxacin 750 mg [levofloxacin 750 mg/150 mL in 5 % dextrose intravenous ko2 piggyback] Route: IVPB; Infused Over: 90 mins; Site: left antecubital; RT: 00:29 ABG's drawn from left radial artery pressure held for 5 minutes no bleeding noted nk1 pressure bandage applied specimen sent pt. tolerated well. Order Results: Lab Order: B-Type Natiuretic Peptide; SPEC'M 07/16/16 23:32 Test: BRAIN NATRIURETIC PEPTIDE; Value: 86.4; Range: <100; Units: PG/ML; Status: F Lab Order: Basic Metabolic Profile; SPEC'M 07/16/16 23:32 Test: GLUCOSE, FASTING; Value: 247; Range: 83-110; Abnormal: Above high normal; Units: MG/DL; Status: F Test: BLOOD UREA NITROGEN; Value: 65; Range: 7-18; Abnormal: Above high normal; Units: MG/DL; Status: F Test: CREATININE FOR GFR; Value: 1.91; Range: 0.55-1.02; Abnormal: Above high normal; Units: MG/DL; Status: F Test: GLOMERULAR FILTRATION RATE; Value: 27.1; Range: >39; Abnormal: Below low normal; Status: F Test: SODIUM LEVEL; Value: 140; Range: 136-145; Units: MEQ/L; Status: F Test: POTASSIUM SERUM; Value: 3.8; Range: 3.5-5.1; Units: MEQ/L; Status: F Test: CHLORIDE LEVEL; Value: 94; Range: 98-107; Abnormal: Below low normal; Units: MEQ/L; Status: F Test: CARBON DIOXIDE LEVEL; Value: 36; Range: 21-32; Abnormal: Above high normal; Units: MEQ/L; Status: F Test: ANION GAP; Value: 10; Range: 8-16; Units: MEQ/L; Status: F Test: CALCIUM LEVEL; Value: 9.0; Range: 8.8-10.2; Units: MG/DL; Status: F Test Note: ; Units are mL/min/1.73 m2 Chronic Kidney Disease Staging per NKF: Stage I & II GFR >=60 Normal to Mildly Decreased Stage III GFR 30-59 Moderately Decreased Stage IV GFR 15-29 Severely Decreased Stage V GFR <15 Very Little GFR Left ESRD GFR <15 on [employer] Lab Order: CBC with Diff; SPEC'M 07/16/16 23:32 Test: WHITE BLOOD COUNT; Value: 11.8; Range: 4.0-10.0; Abnormal: Above high normal; Units: K/mm3; Status: F Test: RED BLOOD COUNT; Value: 2.57; Range: 4.00-5.40; Abnormal: Below low normal; Units: M/mm3; Status: F Test: HEMOGLOBIN; Value: 7.8; Range: 12.0-16.0; Abnormal: Below low normal; Units: g/dl; Status: F Test: HEMATOCRIT; Value: 24.2; Range: 36.0-47.0; Abnormal: Below low normal; Units: %; Status: F Test: MEAN CORPUSCULAR VOLUME; Value: 94.1; Range: 80.0-96.0; Units: fl; Status: F Test: MEAN CORPUSCULAR HEMOGLOBIN; Value: 30.6; Range: 27.0-33.0; Units: pg; Status: F Test: MEAN CORPUSCULAR HGB CONC; Value: 32.5; Range: 32.0-36.5; Units: g/dl; Status: F Test: RED CELL DISTRIBUTION WIDTH; Value: 16.2; Range: 11.5-14.5; Abnormal: Above high normal; Units: %; Status: F Test: PLATELET COUNT, AUTOMATED; Value: 315; Range: 150-450; Units: k/mm3; Status: F Test: NEUTROPHILS; Value: 90; Range: 35-75; Abnormal: Above high normal; Units: %; Status: F Test: BANDS; Value: 1; Range: < 11; Units: %; Status: F Test: LYMPHOCYTES; Value: 6; Range: 16-52; Abnormal: Below low normal; Units: %; Status: F Test: MONOCYTES; Value: 2; Range: 0-8; Units: %; Status: F Test: EOSINOPHILS; Value: 1; Range: 0-5; Units: %; Status: F Test: NUCLEATED RED BLOOD CELL; Value: 4; Range: 0-0; Abnormal: Above high normal; Units: %; Status: F Test: ANISOCYTOSIS; Value: 1+; Status: F Lab Order: Cardiac Injury Profile; SPEC'M 07/16/16 23:32 Test: CPK CREATINE PHOSPHOKINASE; Value: 64; Range: 26-192; Units: U/L; Status: F Test: CK-MB VALUE MASS; Value: 1.0; Range: 0.0-3.6; Units: NG/ML; Status: F Test: MB/CK RELATIVE INDEX; Value: 1.56; Range: < OR =4; Status: F Test Note: ; DIAGNOSIS CRITERIA MMB ng/ml Relative Index (RI) NON-AMI < or = 5 N/A [place] > 5 < or = 4 AMI > 5 > 4 Lab Order: Troponin; [facility] 07/16/16 23:32 Test: TROPONIN I; Value: < 0.02; Range: < 0.10; Units: NG/ML; Status: F Test Note: ; Troponin I Reference Interval for [employer] LOCI: 99th Percentile= 0.00-0.045 ng/ml Risk Stratification: <= 0.10 ng/ml Decreased Risk for Adverse Clinical Events. 0.10-1.50 ng/ml Increased Risk for Adverse Clinical Events. Evaluation of additional criterion and/or repeat testing in 2-6 hours is suggested to rule out myocardial damage. >= 1.50 ng/ml Indicative of Myocardial Injury. Lab Order: INR; [facility]07/17/16 00:00 Test: PROTHROMBIN TIME; Value: 105.3; Range: 12.3-14.5; Abnormal: Above high normal; Units: SECONDS; Status: F Test: INR; Value: 14.44; Abnormal: Above upper panic limits; Status: F Test Note: ; THERAPUTIC HUMAN INR VALUES INDICATIONS NORMAL RANGES PROPHYLAXIS/TREATMENT OF: VENOUS THROMBOSIS 2.0-3.0 PULMONARY EMBOLISM 2.0-3.0 PREVENTION OF SYSTEMIC EMBOLISM FROM: TISSUE HEART VALVES 2.0-3.0 ACUTE MYOCARDIAL INFARCTION 2.0-3.0 VALVULAR HEART DISEASE 2.0-3.0 ATRIAL FIBRILLATION 2.0-3.0 MECHANICAL VALVES(HIGH RISK) 2.5-3.5 RECURRENT MYOCARDIAL INFARCTION 2.5-3.5 Lab Order: -Arterial Blood Gas; [facility]07/17/16 00:13 Test: ABG pH (ARTERIAL); Value: 7.479; Range: 7.350-7.450; Abnormal: Above high normal; Units: UNITS; Status: F Test: ABG PARTIAL PRESSURE CO2; Value: 49.7; Range: 35.0-45.0; Abnormal: Above high normal; Units: mmHg; Status: F Test: ABG PARTIAL PRESSURE O2; Value: 66.0; Range: 75.0-100.0; Abnormal: Below low normal; Units: mmHg; Status: F Test: ABG TOTAL CO2; Value: 37.6; Range: 23.0-31.0; Abnormal: Above high normal; Units: MEQ/L; Status: F Test: ABG HCO3; Value: 36.1; Range: 22.0-26.0; Abnormal: Above high normal; Units: MEQ/L; Status: F Test: ABG BASE EXCESS; Value: 11.4; Range: -2.0-2.0; Abnormal: Above high normal; Status: F Test: ABG STANDARD HCO3; Value: 35.0; Range: 22.0-26.0; Abnormal: Above high normal; Units: MEQ/L; Status: F Test: ABG O2 SATURATION; Value: 92.4; Range: 95.0-99.0; Abnormal: Below low normal; Units: %; Status: F Test: ABG DEVICE; Value: NASAL CARLOS; Status: F Lab Order: PLATELET ESTIMATE; SPEC'M 07/16/16 23:32 Test: PLATELET ESTIMATE; Value: NORMAL; Range: NORMAL; Status: F Lab Order: RESPIRATORY PANEL; SPEC'M 07/17/16 04:32 Test: RESPIRATORY PANEL; Value: RP PANEL RESULT NEGATIVE by PCR; Status: F Test: RESPIRATORY PANEL; Value: Comments:; Status: F Test Note: ; This respiratory PCR panel detects Influenza A H1, H3 and 2009 H1 viruses, Influenza B virus, Respiratory syncytial virus, Human metapneumovirus, Parainfluenza virus 1, 2, 3 and 4, Adenovirus, Rhinovirus/Enterovirus, Coronavirus HKU1, NL63, OC43 and 229E, Bordetella pertussis, Mycoplasma pneumoniae and Chlamydia pneumoniae. Lab Order: SPUTUM CULTURE AND GRAM STAIN; SPEC'M 07/17/16 11:06 Test: GRAM STAIN; Value: GRAM STAIN RESULT; Status: F Test: GRAM STAIN; Value: QUALITY: GOOD; Status: F Test: GRAM STAIN; Value: MANY WBCS; Status: F Test: GRAM STAIN; Value: FEW EPITHELIAL CELLS; Status: F Test: GRAM STAIN; Value: MODERATE GRAM POSITIVE RODS; Status: F Test: GRAM STAIN; Value: FEW GRAM NEGATIVE RODS; Status: F Lab Order: TYPE & SCREEN; 07/17/16 Test: BLOOD TYPE; Value: B POS; Status: F Test: AB SCREEN (INDIRECT LAINEY)GEL; Value: NEGATIVE; Status: F Test: IMMEDIATE SPIN CROSSMATCH; Value: [id number] B POSITIVE Compatible? Y; Status: F Lab Order: VITAMIN B12 LEVEL; 07/17/16 Test: VITAMIN B12 LEVEL; Range: 247-911; Units: PG/ML; Status: I Lab Order: FOLATE; 07/17/16 Test: FOLATE; Range: >5.4; Units: NG/ML; Status: I Lab Order: FERRITIN; 07/17/16 Test: FERRITIN; Value: 74; Range: 8-252; Units: NG/ML; Status: F Lab Order: TOTAL IRON BINDING CAPACIT; 07/17/16 Test: IRON (FE); Value: 75; Range: 50-170; Units: UG/DL; Status: F Test: TOTAL IRON BINDING CAPACITY; Value: 296; Range: 250-450; Units: UG/DL; Status: F Test: PERCENT SATURATION; Value: 25.3; Range: 13.2-37.4; Units: %; Status: F Lab Order: RETICULOCYTE COUNT; 07/17/16 Test: RETICULOCYTE % [id number]; Value: 3.50; Range: 0.5-1.5; Abnormal: Above high normal; Units: %; Status: F Test: RETICULOCYTE ABSOLUTE [id number]; Value: 86; Range: 17-77; Abnormal: Above high normal; Units: x10(9)/L; Status: F Test: RETIC HEMOGLOBIN CONTENT CHr; Value: 35.4; Range: 24-36; Units: PG; Status: F Lab Order: PATHOLOGIST REVIEW COMPREHENSI; 07/17/16 Test: SLIDE REVIEW; Value: Report; Status: F Test: SOURCE; Value: PERIPHERAL SMEAR; Status: F Test: REASON FOR REVIEW; Value: ANEMIA / RBC MORPH; Status: F Test Note: ; Slide and/or specimen referred to Pathologist for review. Results of the review are located in the EMR Pathology module under Peripheral Smear when completed. Lab Order: URINALYSIS; SPEC'M 07/17/16 11:08 Test: APPEARANCE, URINE; Value: CLEAR; Range: CLEAR; Status: F Test: COLOR, URINE; Value: STRAW; Range: YELLOW; Status: F Test: PH,URINE; Value: 5.0; Range: 5.0-9.0; Units: UNITS; Status: F Test: SPECIFIC GRAVITY URINE AUTO; Value: 1.014; Range: 1.002-1.035; Status: F Test: PROTEIN, URINE AUTO; Value: NEGATIVE; Range: NEGATIVE; Units: mg/dL; Status: F Test: GLUCOSE, URINE (UA) AUTO; Value: NEGATIVE; Range: NEGATIVE; Units: mg/dL; Status: F Test: KETONE, URINE AUTO; Value: NEGATIVE; Range: NEGATIVE; Units: mg/dL; Status: F Test: UROBILINOGEN, URINE AUTO; Value: 0.2; Range: 0.0-2.0; Units: mg/dL; Status: F Test: BILIRUBIN, URINE AUTO; Value: NEGATIVE; Range: NEGATIVE; Status: F Test: NITRITE, URINE AUTO; Value: NEGATIVE; Range: NEGATIVE; Status: F Test: LEUKOCYTE ESTERASE, URINE AUTO; Value: TRACE; Range: NEGATIVE; Abnormal: Above high normal; Status: F Test: BLOOD, URINE BLOOD; Value: NEGATIVE; Range: NEGATIVE; Status: F Test: WBC, URINE AUTO; Value: 4; Range: 0-3; Abnormal: Above high normal; Units: /HPF; Status: F Test: RBC, URINE AUTO; Value: 0; Range: 0-3; Units: /HPF; Status: F Test: BACTERIA, URINE AUTO; Value: NEGATIVE; Range: NEGATIVE; Status: F Test: SQUAMOUS EPITHELIAL CELL UR AU; Value: 0; Range: 0-6; Units: /HPF; Status: F Test: HYALINE CAST, URINE AUTO; Value: 0; Range: 0-1; Units: /LPF; Status: F Lab Order: TOTAL PROTEIN,RANDOM URINE; SPEC'M 07/17/16 11:08 Test: TOTAL PROTEIN,RANDOM URINE; Value: 34.7; Range: 0.0-12.0; Abnormal: Above high normal; Units: MG/DL; Status: F Lab Order: CREATININE,RANDOM URINE; 07/17/16 11:08 Test: CREATININE,RANDOM URINE; Value: 51.4; Units: MG/DL; Status: F Lab Order: OSMOLALITY,URINE; 07/17/16 11:08 Test: OSMOLALITY URINE; Value: 484; Range: 500-800; Abnormal: Below low normal; Units: MOSM/KG; Status: F Lab Order: SODIUM,RANDOM URINE; 07/17/16 11:08 Test: SODIUM,RANDOM URINE; Value: 17; Units: MEQ/L; Status: F Lab Order: CHLORIDE,RANDOM URINE; 07/17/16 11:08 Test: CHLORIDE,RANDOM URINE; Value: < 10; Units: MEQ/L; Status: F Lab Order: POTASSIUM,RANDOM URINE; 07/17/16 11:08 Test: POTASSIUM RANDOM URINE; Value: 36.7; Units: MEQ/L; Status: F Lab Order: OCCULT BLOOD STOOL SPECIMEN; 07/17/16 11:07 Test: OCCULT BLOOD; Value: OCCULT BLOOD 1 POSITIVE; Abnormal: Abnormal; Status: F Lab Order: C REACTIVE PROTEIN QUANTITATIV; 07/16/16 23:32 Test: C REACTIVE PROTEIN QUANTITATIV; Value: 3.77; Range: 0.00-0.30; Abnormal: Above high normal; Units: MG/DL; Status: F Lab Order: C REACTIVE PROTEIN QUANTITATIV; 07/17/16 06:37 Test: C REACTIVE PROTEIN QUANTITATIV; Value: 3.58; Range: 0.00-0.30; Abnormal: Above high normal; Units: MG/DL; Status: F Lab Order: HEMOGLOBIN & HEMATOCRIT; 07/17/16 12:53 Test: HEMOGLOBIN; Value: 7.8; Range: 12.0-16.0; Abnormal: Below low normal; Units: g/dl; Status: F Test: HEMATOCRIT; Value: 24.0; Range: 36.0-47.0; Abnormal: Below low normal; Units: %; Status: F Lab Order: PROTHROMBIN TIME PROFILE\E\INR; 07/17/16 12:53 Test: PROTHROMBIN TIME; Value: 18.0; Range: 12.3-14.5; Abnormal: Above high normal; Units: SECONDS; Status: F Test: INR; Value: 1.48; Status: F Test Note: ; THERAPUTIC HUMAN INR VALUES INDICATIONS NORMAL RANGES PROPHYLAXIS/TREATMENT OF: VENOUS THROMBOSIS 2.0-3.0 PULMONARY EMBOLISM 2.0-3.0 PREVENTION OF SYSTEMIC EMBOLISM FROM: TISSUE HEART VALVES 2.0-3.0 ACUTE MYOCARDIAL INFARCTION 2.0-3.0 VALVULAR HEART DISEASE 2.0-3.0 ATRIAL FIBRILLATION 2.0-3.0 MECHANICAL VALVES(HIGH RISK) 2.5-3.5 RECURRENT MYOCARDIAL INFARCTION 2.5-3.5 Lab Order: BASIC METABOLIC PROFILE; SPEC'M 07/17/16 06:37 Test: GLUCOSE, FASTING; Value: 135; Range: 83-110; Abnormal: Above high normal; Units: MG/DL; Status: F Test: BLOOD UREA NITROGEN; Value: 63; Range: 7-18; Abnormal: Above high normal; Units: MG/DL; Status: F Test: CREATININE FOR GFR; Value: 1.72; Range: 0.55-1.02; Abnormal: Above high normal; Units: MG/DL; Status: F Test: GLOMERULAR FILTRATION RATE; Value: 30.6; Range: >39; Abnormal: Below low normal; Status: F Test: SODIUM LEVEL; Value: 139; Range: 136-145; Units: MEQ/L; Status: F Test: POTASSIUM SERUM; Value: 3.6; Range: 3.5-5.1; Units: MEQ/L; Status: F Test: CHLORIDE LEVEL; Value: 96; Range: 98-107; Abnormal: Below low normal; Units: MEQ/L; Status: F Test: CARBON DIOXIDE LEVEL; Value: 37; Range: 21-32; Abnormal: Above high normal; Units: MEQ/L; Status: F Test: ANION GAP; Value: 6; Range: 8-16; Abnormal: Below low normal; Units: MEQ/L; Status: F Test: CALCIUM LEVEL; Value: 8.4; Range: 8.8-10.2; Abnormal: Below low normal; Units: MG/DL; Status: F Test Note: ; Units are mL/min/1.73 m2 Chronic Kidney Disease Staging per NKF: Stage I & II GFR >=60 Normal to Mildly Decreased Stage III GFR 30-59 Moderately Decreased Stage IV GFR 15-29 Severely Decreased Stage V GFR <15 Very Little GFR Left ESRD GFR <15 on [employer] Lab Order: MAGNESIUM LEVEL; SPEC'M 07/17/16 06:37 Test: MAGNESIUM LEVEL; Value: 1.7; Range: 1.8-2.4; Abnormal: Below low normal; Units: MG/DL; Status: F Lab Order: COMPLETE BLOOD COUNT; SPEC'M 07/17/16 06:37 Test: WHITE BLOOD COUNT; Value: 11.9; Range: 4.0-10.0; Abnormal: Above high normal; Units: K/mm3; Status: F Test: RED BLOOD COUNT; Value: 2.30; Range: 4.00-5.40; Abnormal: Below low normal; Units: M/mm3; Status: F Test: HEMOGLOBIN; Value: 6.8; Range: 12.0-16.0; Abnormal: Critical Low; Units: g/dl; Status: F Test: HEMATOCRIT; Value: 21.3; Range: 36.0-47.0; Abnormal: Below low normal; Units: %; Status: F Test: MEAN CORPUSCULAR VOLUME; Value: 92.7; Range: 80.0-96.0; Units: fl; Status: F Test: MEAN CORPUSCULAR HEMOGLOBIN; Value: 29.6; Range: 27.0-33.0; Units: pg; Status: F Test: MEAN CORPUSCULAR HGB CONC; Value: 31.9; Range: 32.0-36.5; Abnormal: Below low normal; Units: g/dl; Status: F Test: RED CELL DISTRIBUTION WIDTH; Value: 16.1; Range: 11.5-14.5; Abnormal: Above high normal; Units: %; Status: F Test: PLATELET COUNT, AUTOMATED; Value: 278; Range: 150-450; Units: k/mm3; Status: F Radiology Order: Chest, 2 View (pa\E\lat) Test: Chest, 2 View (pa\E\lat) REASON FOR EXAMINATION: Shortness of Breath; CHEST X-RAY: Two views.; ; HISTORY: Shortness of breath.; ; Comparison study July 06, 2016.; ; FINDINGS: There is coarse bibasilar plate-like atelectasis. Lungs are; hyperinflated. Increased density is seen in the lingular segment of the left; upper lobe on lateral radiograph consistent with plate-like atelectasis here as; well. There are degenerative changes in the thoracic spine. Pleural angles are; sharp. Heart is not felt to be enlarged.; ; IMPRESSION: Coarse bilateral lower lobe and lingular plate-like atelectasis.; Hyperinflation.; ; ; Signed by; Roberto Velazquez MD 07/17/2016 10:06 A; Radiology Order: Abdomen,Flat Plate KUB Test: Abdomen,Flat Plate KUB REASON FOR EXAMINATION: IVC filter; KUB: Single view.; ; HISTORY: Inferior vena cava filter.; ; Comparison KUB study is from May 19, 2015.; ; FINDINGS: There is some orally administered barium in the tip of the cecum.; Moderate stool is seen in the colon. A vena cava filter is again noted over the; lumbar spine at approximately L3-4. There are diffuse degenerative disc changes; in the lumbar spine and a levoconvex curvature is seen. Flank stripes are; intact. Psoas margins are symmetric.; ; IMPRESSION: IVC filter noted in place unchanged from 2014. Moderate colonic; stool.; ; ; Signed by; Roberto Velazquez MD 07/17/2016 10:06 A; Radiology Order: CT Head without contrast Test: CT Head without contrast REASON FOR EXAMINATION: r/o pna; ; CLINICAL HISTORY: Pneumonia.; TECHNIQUE: Multiple axial brain CT scan sections were obtained from base to vertex without contrast a; dministration.; COMMENTS:; The study shows normal configuration of sella turcica. There are no intra or extra-axial collections.; There is no mass effect or midline shift. There is no evidence of hematoma formation. No hydrocephal; us is present. No abnormal calcifications are noted.; No significant abnormalities are seen either in the posterior fossa or supratentorial compartment.; The sinuses and mastoid air cells are patent.; IMPRESSION:; No evidence of acute intracranial pathology.; Thank you for your kind referral of this patient.; ; Radiology Order: CT Chest without contrast Test: CT Chest without contrast REASON FOR EXAMINATION: r/o pna; ; CLINICAL HISTORY: Suspected pneumonia.; TECHNIQUE: Multiple axial CT images were obtained through chest without IV contrast material. MPR cor; onal and sagittal sequences were obtained.; COMMENTS:; Bilateral basilar atelectatic pulmonary changes.; Moderate pulmonary emphysema.; Mild subsegmental atelectasis in the left lower lobe.; There is no evidence of pleural or parenchymal mass. There are no pleural effusions. There is no evid; ence of hilar or mediastinal lymphadenopathy. The heart and great vessels are within normal limits.; The visualized portions of the liver are of uniform attenuation without mass or defect. There is no i; ntra or extrahepatic biliary ductal dilatation. The spleen is unremarkable. The visualized pancreas i; s of normal contour and attenuation characteristics. There is no evidence of adrenal mass. The visual; ized portions of the kidneys present no abnormalities.; The bony structures are free of lytic or blastic lesions. Multilevel degenerative changes are seen in; volving the thoracic spine. Scattered calcifications are seen involving the aorta and visualized maicol; r branches compatible with atherosclerosis.; Small sliding hernia.; IMPRESSION:; Mild subsegmental atelectasis in the left lower lobe.; Thank you for your kind referral of this patient.; ; ; Radiology Order: RENAL US Test: RENAL US REASON FOR EXAMINATION: acute on chronic renal; ; CLINICAL HISTORY: Pain.; TECHNIQUE: Realtime sonographic images were obtained in multiple projections.; COMMENTS:; The right kidney measures 10.6x6.1x5.2 cm and the left kidney measures 10.1x4.4x5.1 cm. Both kidn; eys are free of hydronephrosis. There is no evidence of solid or cystic mass. There is no perinephric; fluid. There is no renal calculus.; IMPRESSION:; Normal study.; Thank you for your kind referral of this patient.; ; ; Radiology Order: Duplex, Ext LOWER veins, bilat Test: Duplex, Ext LOWER veins, bilat REASON FOR EXAMINATION: acute on chronic renal; Duplex extremity venous ultrasound: Bilateral lower extremity.; ; History: Shortness of breath. Question DVT.; ; Findings: The deep veins are anechoic and fully compressible from the groin to; the popliteal fossa in the right and left lower extremity. Color flow imaging is; homogeneous. Spectral Doppler interrogation demonstrates intact respiratory; variation in flow and normal manual augmentation of flow. There is no evidence; of deep vein thrombosis.; ; Impression:; ; Negative bilateral lower extremity duplex venous ultrasound. No evidence of deep; vein thrombosis.; ; ; Signed by; Roberto Velazquez MD 07/17/2016 10:01 A; Outcome: 00:22 Decision to Hospitalize by Provider. le 17:08 Discharge Assessment: patient administered narcotics - no. The following High Risk ml6 Discharge criteria are identified: None. Admitted to PCU accompanied by nurse, accompanied by tech. Condition: stable. CT Study completed. Property :Personal belongings accompany Pt. 17:16 Patient left the ED. ml6 Signatures: Dispatcher [employer] EDBeau Oliveira, LEYDA Lal, Arti Dale, RN Jam No, Quality Control Engineer Unit ml3 Ariane Garvey,RT RT nk1 Tashia Wagner, MANAGER DISTRIBUTION MANAGER DISTRIBUTION Chester Salazar RN RN ml6 Shirley Coelho, AGILE SCRUM MASTER AGILE SCRUM MASTER ar3 Patricia Reeder,Annalisa Oden RN, RN RN ko2 Peyton Muro Crystal, AGILE SCRUM MASTER AGILE SCRUM MASTER cln MTDD
--- NOTE | 2016-07-17 17:17 | EDDOCDS ---
Physician Documentation [facility] Name: Isidra Delacruz Age: 75 yrs Sex: Female : 1940 Arrival Date: 07/16/2016 Time: 22:51 Bed Admit Hold Private MD: Disposition: 07/17/16 00:22 Hospitalization ordered by Rita Mayorga for Observation. Preliminary diagnosis are Pneumonia, unspecified organism, Shortness of breath. - [facility] - Status is Observation. ml6 - Condition is Stable. - Problem is an ongoing problem. - Symptoms are unchanged. Historical: - Allergies: Amoxicillin (Hives); Lisinopril (Swelling, Anaphylaxis); Oxycodone HClagitation; SULFA (SULFONAMIDES) (Hives); Temazepam (Swelling); - Home Meds: 1. Advair Diskus 250-50 mcg/dose Inhl dsdv 2 times per day 2. albuterol sulfate 2.5 mg /3 mL (0.083 %) Inhl nebu 4 times per day 3. albuterol sulfate 90 mcg/actuation Inhl aepb every 4 hours 4. alendronate 70 mg oral tab once wkly Tuesday 5. amlodipine 10 mg Oral tab 1 tab once daily 6. aspirin 81 mg Oral chew once daily 7. Calcium + Vitamin D 5oo/200 Oral twice a day 8. Colace 100 mg oral tab 1 cap 2 times per day takes 1 daily as needed 9. Coumadin 5 mg Oral tab once daily 10. erythromycin 5 mg/gram (0.5 %) Opht oint 6 times per day 11. ferrous sulfate 325 mg (65 mg iron) Oral cpER daily 12. fluoxetine 60 mg Oral tab once daily 13. fluticasone 50 mcg/actuation nasal spsn 2 sprays once daily 14. fluticasone-salmeterol 45-21 mcg/actuation inhalation HFAA 2 puffs 2 times per day 15. furosemide 80 mg oral tab 1 tab once daily 16. gabapentin 600 mg Oral tab 1 tab bid 17. loratadine 10 mg Oral tab 1 tab once daily 18. magnesium oxide 500 mg Oral cap nightly 19. Nitrostat 0.4 mg SL subl every 5 minutes prn 20. Martha 7.5-325 mg Oral tab QID prn 21. nystatin 100,000 unit/mL Oral susp 10 mL 4 times per day 22. oxybutynin chloride 15 mg Oral tr24 once daily 23. oxygen NC 2 liters continuous 24. polyethylene glycol 3350 17 gram/dose oral powd once daily 25. prednisone 10 mg Oral tab once daily 26. Protonix 40 mg Oral TbEC 1 tab once daily 27. simvastatin 10 mg Oral tab 1 tab once daily 28. Spiriva with HandiHaler 18 mcg Inhl CpDv 1 cap once daily 29. trazadone 100 mg 100 mg daily 30. trazodone 100 mg Oral tab 2 tabs nightly 31. Cefuroxime Oral 500 mg - PMHx: Anxiety; Cancer, Breast - Left; Cancer, Breast - Right; CHF; GERD; COPD; PE; - PSHx: Mastectomy- Bilateral; Tubal ligation; Ankle Arthroplasty, Left; Shoulder Arthroplasty, Left; - Social history: Smoking status: Patient states former smoker of tobacco. No barriers to communication noted, The patient speaks fluent [place]er, Speaks appropriately for age. - Family history: Not pertinent. - : The pt / caregiver states he / she is not on anticoagulants. Home medication list is obtained from the patient, [employer] import data. - Exposure Risk Screening:: None identified. Vital Signs: 07/16 23:08 BP 161 / 72 LA Sitting (auto/reg); Pulse 99 MON; Resp 22 S; Temp 98.7(TE); Pulse Ox 93% cln on 2 lpm NC; Weight 86.18 kg / 189.99 lbs (R); Height 5 ft. 2 in. (157.48 cm) (R); Pain 0/10; 23:23 BP 169 / 75 (auto/); ko2 23:23 Pulse Ox 92% ; ko2 23:39 BP 154 / 89 (auto/); ko2 23:40 Pulse 102 MON; Pulse Ox 92% ; ko2 23:54 BP 146 / 79 (auto/); ko2 23:54 Pulse 94 MON; Pulse Ox 91% ; ko2 07/17 00:09 BP 147 / 84 (auto/); ko2 00:12 Pulse 92 MON; Pulse Ox 90% ; ko2 00:23 Pulse 92 MON; Pulse Ox 90% ; ko2 00:24 BP 145 / 81 (auto/); ko2 00:38 Pulse 92 MON; Pulse Ox 92% ; ko2 00:39 BP 186 / 89 (auto/); ko2 00:53 Pulse 96 MON; Pulse Ox 92% ; ko2 00:54 BP 175 / 80 (auto/); ko2 01:07 Pulse 92 MON; Pulse Ox 94% ; ko2 01:09 BP 160 / 81 (auto/); ko2 07/16 23:08 Body Mass Index 34.75 (86.18 kg, 157.48 cm) cln MDM: 07/16 23:08 -Blood Culture (Adults Only), peripheral from different site, or from device/port/PICC le etc. if present ordered. 23:08 Egg Producer/Pulse Ox/q 15 min VS ordered. le 23:08 IV Saline Lock ordered. le 23:08 Oxygen at 4L/Min NC or Home dosage ordered. le 23:08 Rhythm Strip to chart ordered. le 23:08 B-Type Natiuretic Peptide Ordered. EDMS 23:08 Basic Metabolic Profile Ordered. EDMS 23:08 CBC with Diff Ordered. EDMS 23:08 Cardiac Injury Profile Ordered. EDMS 23:08 Troponin Ordered. EDMS 23:08 -Blood Culture Ordered. EDMS 23:09 Chest, 2 View (pa\E\lat) Ordered. EDMS 23:09 ECG WITH READING ER PHYS+CARDIAG ordered. EDMS 23:33 -Blood Culture (Adults Only), peripheral from different site, or from device/port/PICC ml3 etc. if present complete. 23:40 BED REQUEST+ADM ordered. EDMS 0204 00:01 INR Ordered. EDMS 00:01 levofloxacin 750 mg IVPB once over 90 mins ordered. le 00:01 Call Respiratory ordered. le 00:02 -Arterial Blood Gas Ordered. EDMS 00:03 Call Respiratory complete. ml3 00:17 DIFFERENTIAL NO CHARGE Ordered. EDMS 01:43 Financial registration complete. h 01:46 BLOOD CULTURES Ordered. EDMS 01:47 Abdomen,Flat Plate KUB Ordered. EDMS 01:47 ECHOCARD,DOPPLER/COLOR FLOW ordered. EDMS 01:47 CT Head without contrast Ordered. EDMS 01:47 CT Chest without contrast Ordered. EDMS 01:48 RESPIRATORY PANEL Ordered. EDMS 01:48 MRSA SCREEN Ordered. EDMS 01:48 SPUTUM CULTURE AND GRAM STAIN Ordered. EDMS 01:49 PACKED CELLS Ordered. EDMS 01:49 TYPE & SCREEN Ordered. EDMS 01:50 VITAMIN B12 LEVEL Ordered. EDMS 01:50 FOLATE Ordered. EDMS 01:50 IRON (FE) Ordered. EDMS 01:50 FERRITIN Ordered. EDMS 01:50 TOTAL IRON BINDING CAPACIT Ordered. EDMS 01:50 RETICULOCYTE COUNT Ordered. EDMS 01:50 PATHOLOGIST REVIEW COMPREHENSI Ordered. EDMS 01:51 URINALYSIS Ordered. EDMS 01:51 TOTAL PROTEIN,RANDOM URINE Ordered. EDMS 01:51 CREATININE,RANDOM URINE Ordered. EDMS 01:51 OSMOLALITY,URINE Ordered. EDMS 01:51 SODIUM,RANDOM URINE Ordered. EDMS 01:51 CHLORIDE,RANDOM URINE Ordered. EDMS 01:52 POTASSIUM,RANDOM URINE Ordered. EDMS 01:52 OCCULT BLOOD STOOL SPECIMEN Ordered. EDMS 01:52 PHYSICAL THERAPY EVAL & TREAT ordered. EDMS 01:52 RENAL US Ordered. EDMS 01:52 Duplex, Ext LOWER veins, bilat Ordered. EDMS 01:53 C REACTIVE PROTEIN QUANTITATIV Ordered. EDMS 01:55 C REACTIVE PROTEIN QUANTITATIV Ordered. EDMS 02:01 CLEAR LIQUIDS DIET ordered. EDMS 02:02 HEMOGLOBIN & HEMATOCRIT Ordered. EDMS 02:02 HEMOGLOBIN & HEMATOCRIT Ordered. EDMS 02:02 PROTHROMBIN TIME PROFILE\E\INR Ordered. EDMS 02:03 Admission / Observation Status ordered. EDMS 02:04 [facility] Payment Agreement was scanned into [employer] and attached to record. [facility] 03:29 BASIC METABOLIC PROFILE Ordered. EDMS 03:29 MAGNESIUM LEVEL Ordered. EDMS 03:29 COMPLETE BLOOD COUNT Ordered. EDMS 11:26 PROTHROMBIN TIME PROFILE\E\INR Ordered. EDMS Administered Medications: 00:13 Drug: levofloxacin 750 mg [levofloxacin 750 mg/150 mL in 5 % dextrose intravenous ko2 piggyback] Route: IVPB; Infused Over: 90 mins; Site: left antecubital; Signatures: Dispatcher [employer] EDMS Jam Romero, Warehouse Shipping Receiving Clerk Unit ml3 Tashia Wagner FNP FNP le Lowe, Matthew, RN RN ml6 Annalisa Zaman RN RN ko2 Elidia Nichole RN RN [facility]2 Peyton Muro [facility] The chart was reviewed and I authenticate all verbal orders and agree with the evaluation and treatment provided.Corrections: (The following items were deleted from the chart) 07/16 23:35 23:35 BLOOD CULTURES ordered. EDMS EDMS 23:35 23:35 BLOOD CULTURES ordered. EDMS EDMS 07/17 01:54 01:46 C REACTIVE PROTEIN QUANTITATIV ordered. EDMS EDMS 03: 01:55 COMPLETE BLOOD COUNT ordered. EDMS EDMS : 01:55 BASIC METABOLIC PROFILE ordered. EDMS EDMS 03: 01:55 MAGNESIUM LEVEL ordered. EDMS EDMS Attachments: 02:04 [facility] Payment Agreement [facility] MTDD
[2016-07-17 20:14] LABS: INR 1.12
[2016-07-18] MEDS: IPRATROPIUM 0.5MG/ALBUTEROL 2.5MG INH SOL UD 3ML (DUONEB)(J7620) NEB SCH ×4 (00:38→19:36)
[2016-07-18] MEDS ORDERED: SLF 3 ML SYR IV PRN (02:15)
[2016-07-18] MEDS: CEFTAROLINE FOSAMIL 300 MG in D5W 50 ML IV SCH ×2 (04:19→16:03)
[2016-07-18 05:35] VITALS: BP 135/64
[2016-07-18] MEDS: SLF 3 ML SYR IV SCH ×3 (05:38→21:33)
[2016-07-18] MEDS: ALENDRONATE 70 MG TABLET (FOSAMAX) PO SCH (05:59)
[2016-07-18 06:12] LABS: MEAN CORPUSCULAR HEMOGLOBIN 29.4 pg (27.0-33.0); MEAN CORPUSCULAR HGB CONC 33.2 g/dl (32.0-36.5); MEAN CORPUSCULAR VOLUME 88.6 fl (80.0-96.0); RED CELL DISTRIBUTION WIDTH 16.1 % (11.5-14.5); WHITE BLOOD COUNT 12.7 K/mm3 (4.0-10.0)
--- NOTE | 2016-07-18 06:21 | ECGEPIP ---
Stationary ECG Study [facility] - ED Test Date: 2016-07-16 Pat Name: MONSERRAT VELASCO Department: Room: [place] [address] Gender: F Promotions Assistant Sales Marketing: vivi : 1940 Requested By: DEMETRA CORDOVA Order Number: [id number] Reading MD: Amilcar Eduardo Measurements Intervals [place] Rate: 100 P: DC: 0 QRS: 1 QRSD: 90 T: 30 QT: 361 QTc: 467 Interpretive Statements ATRIAL FIBRILLATION WITH VENTRICULAR PREMATURE COMPLEXES NONSPECIFIC ST & T-WAVE ABNORMALITY ABNORMAL RHYTHM ECG Electronically Signed On 07-18-2016 6:21:24 EST by Amilcar Eduardo
[2016-07-18 06:24] LABS: INR 1.11
[2016-07-18 06:25] LABS: CALCIUM LEVEL 8.5 MG/DL (8.8-10.2); CREATININE FOR GFR 1.87 MG/DL (0.55-1.02); GLOMERULAR FILTRATION RATE 27.8 (>39); POTASSIUM SERUM 3.6 MEQ/L (3.5-5.1)
[2016-07-18] MEDS: TIOTROPIUM INHALER/CAPSULE (SPIRIVA) INH SCH (07:43)
[2016-07-18] MEDS: SYMBICORT 160/4.5MCG INHALER 6GM INH SCH ×2 (07:43→19:36)
[2016-07-18 08:00] VITALS: BP 121/61
[2016-07-18] MEDS: PANTOPRAZOLE 40MG INJ (PROTONIX) (C9113) IV SCH ×2 (09:38→21:32)
[2016-07-18] MEDS: MIRALAX *UNIT DOSE* 17GM PACKET PO SCH (09:38)
[2016-07-18] MEDS: GABAPENTIN 300 MG CAP PO SCH ×2 (09:46→21:32)
[2016-07-18] MEDS: FUROSEMIDE 80 MG TAB PO SCH (09:46)
[2016-07-18] MEDS: SENOKOT S TAB PO SCH ×2 (09:46→21:32)
[2016-07-18] MEDS: oxyBUTYnin *DITROPAN XL* 5 MG TABCR PO SCH (09:46)
[2016-07-18] MEDS: FLUoxetine 20 MG CAP PO SCH (09:46)
[2016-07-18] MEDS: guaiFENesin ER 600 MG TAB PO SCH ×2 (09:47→21:32)
[2016-07-18] MEDS: FERROUS SULFATE 325MG TAB PO SCH (09:47)
[2016-07-18] MEDS: amLODIPine 10 MG TAB PO SCH (09:47)
--- NOTE | 2016-07-18 09:47 | IPN ---
DATE: 07/18/2016 Ms. Delacruz is feeling quite well this morning. Breathing has improved. She has no complaints of chest pain. She is not particularly short of breath although she feels as though she should be producing sputum and cannot. She was not using her Acapella device last evening. Feels much better than upon arrival. Temperature is 96, pulse 79, respiratory rate 20, blood pressure 121/61, 91% on 2 liters nasal cannula. Intake and output notable for a negative fluid balance of -1400. One bowel movement noted yesterday. She is awake, appropriately interactive, pleasantly conversant, moving around in the bed without difficulty. Able to sit up at bedside without assistance. Mucous membranes moist. Neck supple. Breathing is symmetrical. She is speaking in complete sentences. No accessory muscle use. There are coarse upper airway sounds throughout and generally poor aeration. Heart is in a regular rate and rhythm, distant sounding, normal S1 and nd S2. Abdomen is soft, doughy nontender. White cell count 12.7, hemoglobin 8.5, up from 6.8 at arrival, status post 2 units of blood transfused, platelets of 266. INR is 1.11 down from 14.4 at arrival. BUN 64, creatinine 1.87, better than at presentation, but slightly worse than yesterday morning. Stool occult blood is positive. Sputum gram stain culture is pending. Respiratory panel is negative. Blood cultures are negative at 24 hours. My assessment is as follows: This is a 75-year-old with multiple medical issues admitted mainly for chronic obstructive pulmonary disease (COPD) exacerbation with symptomatic anemia related to suspected acute gastrointestinal (GI) blood loss in the setting of supratherapeutic INR. Plan is as follows: 1. Respiratory. The patient has COPD exacerbation with known congestive heart failure (CHF) and diastolic dysfunction. 2D echocardiogram is pending. The patient is monitored on telemetry. She is improving with treatment for COPD. I have encouraged the use of the Acapella device for mal clearance of secretions. 2. The patient has acute blood loss anemia in the setting of INR that had been supratherapeutic. INR is normalized at this point. She will be maintained off anticoagulation. Hemoglobin and hematocrit seem to be stable. 3. The patient has had lower extremity edema. There is no evidence of deep vein thrombosis (DVT). 2D echocardiogram is pending. 4. The patient has obesity, which complicates care. 5. The patient has a history of pulmonary embolism. 6. Deep vein thrombosis (DVT) prophylaxis at this point will be in the form of heparin.
[2016-07-18] MEDS: HEPARIN SOD (PORCINE) 5000 UNITS/ML VIAL SQ SCH ×2 (09:51→21:32)
--- NOTE | 2016-07-18 11:21 | ECHO ---
DATE OF PROCEDURE: 07/17/2016 REFERRING PHYSICIAN: Dr. Rita Mayorga INDICATION: Dyspnea. The patient measures 62 inches and weighs 86 kg. DIMENSIONS: IVS -1.2 LV - 3.9 LVPW - 1.3 LA - 3.5 Aorta - 3.5 RV - 3.5 FINDINGS: Study is of rather difficult technical quality. Left ventricle is normal size and normal systolic function with estimated EF around 65 to 70%. Considering technical limitations of the study, I certainly cannot reliably ruled out subtle wall motion abnormalities. Right ventricle appears grossly normal. Both atria appear grossly normal. Aortic valve was poorly visualized but appears grossly normal. There are normal mitral and tricuspid valves. Pulmonic valve was not seen. No pericardial effusion is present. Inferior vena cava is normal size. Aortic root and aortic arch appear normal. Limited views of abdominal aorta also appear normal. Doppler interrogation reveals no significant aortic or mitral valve disease. Tricuspid valve was poorly seen but no obvious tricuspid insufficiency is noted. Pulmonic valve was not visualized. Mitral inflow pattern and tissue Doppler imaging of mitral annulus reveal grade 1 diastolic dysfunction. CONCLUSION: 1. Study is of limited technical quality. 2. Normal LV size with mild LVH and normal LV systolic function. Grade 1 diastolic dysfunction. 3. No hemodynamically significant valvular disease. 4. Normal central venous pressure. 5. Unable to estimate pulmonary artery pressure. COMMENT: SBE prophylaxis is not recommended. MTDD
[2016-07-18] MEDS: methylPREDNISolone INJ 125 MG/2 ML VIAL (J2930) IV SCH ×2 (11:48→23:49)
[2016-07-18 12:00] VITALS: BP 125/80
[2016-07-18 16:00] VITALS: BP 111/57
[2016-07-18 19:45] VITALS: BP 128/69
[2016-07-18] MEDS: ATORVASTATIN 20 MG TAB PO SCH (21:32)
[2016-07-18] MEDS: LORATADINE 10 MG TAB PO SCH (21:32)
[2016-07-18] MEDS: traZODone 100 MG TAB PO SCH (21:32)
[2016-07-18] MEDS: FLUTICASONE PROP 0.05% NASAL SPRAY 16 GM (FLONASE) SCH (21:33)
[2016-07-18] MEDS: ANEXSIA, NORCO 7.5MG/325MG TABLET(HYDROCODONE/APAP) PO PRN (21:34)
[2016-07-18 23:47] VITALS: BP 130/68
[2016-07-19] VITALS (8 sets, daily range): BP systolic 126–176; BP diastolic 57–80
[2016-07-19] MEDS: IPRATROPIUM 0.5MG/ALBUTEROL 2.5MG INH SOL UD 3ML (DUONEB)(J7620) NEB SCH ×4 (01:48→20:00)
[2016-07-19] MEDS: CEFTAROLINE FOSAMIL 300 MG in D5W 50 ML IV SCH ×2 (03:46→16:20)
[2016-07-19] MEDS: SLF 3 ML SYR IV SCH ×3 (03:46→20:28)
[2016-07-19 06:33] LABS: MEAN CORPUSCULAR HEMOGLOBIN 29.7 pg (27.0-33.0); MEAN CORPUSCULAR HGB CONC 32.7 g/dl (32.0-36.5); MEAN CORPUSCULAR VOLUME 90.8 fl (80.0-96.0); RED CELL DISTRIBUTION WIDTH 16.9 % (11.5-14.5); WHITE BLOOD COUNT 11.6 K/mm3 (4.0-10.0)
[2016-07-19 06:41] LABS: INR 1.13
[2016-07-19 06:53] LABS: CREATININE FOR GFR 2.02 MG/DL (0.55-1.02); GLOMERULAR FILTRATION RATE 25.4 (>39); MAGNESIUM LEVEL 2.2 MG/DL (1.8-2.4); POTASSIUM SERUM 3.4 MEQ/L (3.5-5.1)
[2016-07-19] MEDS: TIOTROPIUM INHALER/CAPSULE (SPIRIVA) INH SCH (08:02)
[2016-07-19] MEDS: SYMBICORT 160/4.5MCG INHALER 6GM INH SCH ×2 (08:02→23:43)
[2016-07-19] MEDS: guaiFENesin ER 600 MG TAB PO SCH ×2 (09:49→20:27)
[2016-07-19] MEDS: SENOKOT S TAB PO SCH ×2 (09:49→20:27)
[2016-07-19] MEDS: FLUoxetine 20 MG CAP PO SCH (09:49)
[2016-07-19] MEDS: oxyBUTYnin *DITROPAN XL* 5 MG TABCR PO SCH (09:49)
[2016-07-19] MEDS: FERROUS SULFATE 325MG TAB PO SCH (09:50)
[2016-07-19] MEDS: FUROSEMIDE 80 MG TAB PO SCH (09:50)
[2016-07-19] MEDS: amLODIPine 10 MG TAB PO SCH (09:51)
[2016-07-19] MEDS: PANTOPRAZOLE 40MG INJ (PROTONIX) (C9113) IV SCH ×2 (09:51→20:33)
[2016-07-19] MEDS: GABAPENTIN 300 MG CAP PO SCH ×2 (09:51→20:27)
[2016-07-19] MEDS: MIRALAX *UNIT DOSE* 17GM PACKET PO SCH (09:51)
[2016-07-19] MEDS: HEPARIN SOD (PORCINE) 5000 UNITS/ML VIAL SQ SCH (09:52)
[2016-07-19 11:03] LABS: VITAMIN B12 LEVEL 366 PG/ML (247-911)
[2016-07-19 11:04] LABS: FOLATE > 24.0 NG/ML (>5.4)
[2016-07-19] MEDS: methylPREDNISolone INJ 125 MG/2 ML VIAL (J2930) IV SCH ×2 (12:04→23:37)
--- NOTE | 2016-07-19 18:17 | EDDOCDS ---
Physician Documentation [facility] Name: Isidra Delacruz Age: 75 yrs Sex: Female : 1940 Arrival Date: 07/16/2016 Time: 22:51 Bed Admit Hold Private MD: Disposition: 07/17/16 00:22 Hospitalization ordered by Rita Mayorga for Observation. Preliminary diagnosis are Pneumonia, unspecified organism, Shortness of breath. - [facility] - Status is Observation. ml6 - Condition is Stable. - Problem is an ongoing problem. - Symptoms are unchanged. Historical: - Allergies: Amoxicillin (Hives); Lisinopril (Swelling, Anaphylaxis); Oxycodone HClagitation; SULFA (SULFONAMIDES) (Hives); Temazepam (Swelling); - Home Meds: 1. Advair Diskus 250-50 mcg/dose Inhl dsdv 2 times per day 2. albuterol sulfate 2.5 mg /3 mL (0.083 %) Inhl nebu 4 times per day 3. albuterol sulfate 90 mcg/actuation Inhl aepb every 4 hours 4. alendronate 70 mg oral tab once wkly Tuesday 5. amlodipine 10 mg Oral tab 1 tab once daily 6. aspirin 81 mg Oral chew once daily 7. Calcium + Vitamin D 5oo/200 Oral twice a day 8. Colace 100 mg oral tab 1 cap 2 times per day takes 1 daily as needed 9. Coumadin 5 mg Oral tab once daily 10. erythromycin 5 mg/gram (0.5 %) Opht oint 6 times per day 11. ferrous sulfate 325 mg (65 mg iron) Oral cpER daily 12. fluoxetine 60 mg Oral tab once daily 13. fluticasone 50 mcg/actuation nasal spsn 2 sprays once daily 14. fluticasone-salmeterol 45-21 mcg/actuation inhalation HFAA 2 puffs 2 times per day 15. furosemide 80 mg oral tab 1 tab once daily 16. gabapentin 600 mg Oral tab 1 tab bid 17. loratadine 10 mg Oral tab 1 tab once daily 18. magnesium oxide 500 mg Oral cap nightly 19. Nitrostat 0.4 mg SL subl every 5 minutes prn 20. [place] 7.5-325 mg Oral tab QID prn 21. nystatin 100,000 unit/mL Oral susp 10 mL 4 times per day 22. oxybutynin chloride 15 mg Oral tr24 once daily 23. oxygen NC 2 liters continuous 24. polyethylene glycol 3350 17 gram/dose oral powd once daily 25. prednisone 10 mg Oral tab once daily 26. Protonix 40 mg Oral TbEC 1 tab once daily 27. simvastatin 10 mg Oral tab 1 tab once daily 28. Spiriva with HandiHaler 18 mcg Inhl CpDv 1 cap once daily 29. trazadone 100 mg 100 mg daily 30. trazodone 100 mg Oral tab 2 tabs nightly 31. Cefuroxime Oral 500 mg - PMHx: Anxiety; Cancer, Breast - Left; Cancer, Breast - Right; CHF; GERD; COPD; PE; - PSHx: Mastectomy- Bilateral; Tubal ligation; Ankle Arthroplasty, Left; Shoulder Arthroplasty, Left; - Social history: Smoking status: Patient states former smoker of tobacco. No barriers to communication noted, The patient speaks fluent Sudanese, Speaks appropriately for age. - Family history: Not pertinent. - : The pt / caregiver states he / she is not on anticoagulants. Home medication list is obtained from the patient, [employer] import data. - Exposure Risk Screening:: None identified. Vital Signs: 07/16 23:08 BP 161 / 72 LA Sitting (auto/reg); Pulse 99 MON; Resp 22 S; Temp 98.7(TE); Pulse Ox 93% cln on 2 lpm NC; Weight 86.18 kg / 189.99 lbs (R); Height 5 ft. 2 in. (157.48 cm) (R); Pain 0/10; 23:23 BP 169 / 75 (auto/); ko2 23:23 Pulse Ox 92% ; ko2 23:39 BP 154 / 89 (auto/); ko2 23:40 Pulse 102 MON; Pulse Ox 92% ; ko2 23:54 BP 146 / 79 (auto/); ko2 23:54 Pulse 94 MON; Pulse Ox 91% ; ko2 07/17 00:09 BP 147 / 84 (auto/); ko2 00:12 Pulse 92 MON; Pulse Ox 90% ; ko2 00:23 Pulse 92 MON; Pulse Ox 90% ; ko2 00:24 BP 145 / 81 (auto/); ko2 00:38 Pulse 92 MON; Pulse Ox 92% ; ko2 00:39 BP 186 / 89 (auto/); ko2 00:53 Pulse 96 MON; Pulse Ox 92% ; ko2 00:54 BP 175 / 80 (auto/); ko2 01:07 Pulse 92 MON; Pulse Ox 94% ; ko2 01:09 BP 160 / 81 (auto/); ko2 07/16 23:08 Body Mass Index 34.75 (86.18 kg, 157.48 cm) cln MDM: 07/16 23:08 -Blood Culture (Adults Only), peripheral from different site, or from device/port/PICC le etc. if present ordered. 23:08 [place] Laborer/Pulse Ox/q 15 min VS ordered. le 23:08 IV Saline Lock ordered. le 23:08 Oxygen at 4L/Min NC or Home dosage ordered. le 23:08 Rhythm Strip to chart ordered. le 23:08 B-Type Natiuretic Peptide Ordered. EDMS 23:08 Basic Metabolic Profile Ordered. EDMS 23:08 CBC with Diff Ordered. EDMS 23:08 Cardiac Injury Profile Ordered. EDMS 23:08 Troponin Ordered. EDMS 23:08 -Blood Culture Ordered. EDMS 23:09 Chest, 2 View (pa\E\lat) Ordered. EDMS 23:09 ECG WITH READING ER PHYS+CARDIAG ordered. EDMS 23:33 -Blood Culture (Adults Only), peripheral from different site, or from device/port/PICC ml3 etc. if present complete. 23:40 BED REQUEST+ADM ordered. EDMS 0204 00:01 INR Ordered. EDMS 00:01 levofloxacin 750 mg IVPB once over 90 mins ordered. le 00:01 Call Respiratory ordered. le 00:02 -Arterial Blood Gas Ordered. EDMS 00:03 Call Respiratory complete. ml3 00:17 DIFFERENTIAL NO CHARGE Ordered. EDMS 01:43 Financial registration complete. h 01:46 BLOOD CULTURES Ordered. EDMS 01:47 Abdomen,Flat Plate KUB Ordered. EDMS 01:47 ECHOCARD,DOPPLER/COLOR FLOW ordered. EDMS 01:47 CT Head without contrast Ordered. EDMS 01:47 CT Chest without contrast Ordered. EDMS 01:48 RESPIRATORY PANEL Ordered. EDMS 01:48 MRSA SCREEN Ordered. EDMS 01:48 SPUTUM CULTURE AND GRAM STAIN Ordered. EDMS 01:49 PACKED CELLS Ordered. EDMS 01:49 TYPE & SCREEN Ordered. EDMS 01:50 VITAMIN B12 LEVEL Ordered. EDMS 01:50 FOLATE Ordered. EDMS 01:50 IRON (FE) Ordered. EDMS 01:50 FERRITIN Ordered. EDMS 01:50 TOTAL IRON BINDING CAPACIT Ordered. EDMS 01:50 RETICULOCYTE COUNT Ordered. EDMS 01:50 PATHOLOGIST REVIEW COMPREHENSI Ordered. EDMS 01:51 URINALYSIS Ordered. EDMS 01:51 TOTAL PROTEIN,RANDOM URINE Ordered. EDMS 01:51 CREATININE,RANDOM URINE Ordered. EDMS 01:51 OSMOLALITY,URINE Ordered. EDMS 01:51 SODIUM,RANDOM URINE Ordered. EDMS 01:51 CHLORIDE,RANDOM URINE Ordered. EDMS 01:52 POTASSIUM,RANDOM URINE Ordered. EDMS 01:52 OCCULT BLOOD STOOL SPECIMEN Ordered. EDMS 01:52 PHYSICAL THERAPY EVAL & TREAT ordered. EDMS 01:52 RENAL US Ordered. EDMS 01:52 Duplex, Ext LOWER veins, bilat Ordered. EDMS 01:53 C REACTIVE PROTEIN QUANTITATIV Ordered. EDMS 01:55 C REACTIVE PROTEIN QUANTITATIV Ordered. EDMS 02:01 CLEAR LIQUIDS DIET ordered. EDMS 02:02 HEMOGLOBIN & HEMATOCRIT Ordered. EDMS 02:02 HEMOGLOBIN & HEMATOCRIT Ordered. EDMS 02:02 PROTHROMBIN TIME PROFILE\E\INR Ordered. EDMS 02:03 Admission / Observation Status ordered. EDMS 02:04 [facility] Payment Agreement was scanned into [employer] and attached to record. [facility] 03:29 BASIC METABOLIC PROFILE Ordered. EDMS 03:29 MAGNESIUM LEVEL Ordered. EDMS 03:29 COMPLETE BLOOD COUNT Ordered. EDMS 11:26 PROTHROMBIN TIME PROFILE\E\INR Ordered. EDMS 17:48 T-Sheet-- Draft Copy was scanned into [employer] and attached to record. klr 07/18 14:57 ECG/EKG was scanned into [employer] and attached to record. gb Administered Medications: 07/17 00:13 Drug: levofloxacin 750 mg [levofloxacin 750 mg/150 mL in 5 % dextrose intravenous ko2 piggyback] Route: IVPB; Infused Over: 90 mins; Site: left antecubital; Signatures: Dispatcher [employer] EDMS Dayami Soares, Reg Reg gb Jam Romero, Volunteer Services Director Unit ml3 Tashia Wagner, MAILING MACHINE HELPER MAILING MACHINE HELPERChester Hinojosa, RN RN ml6 Annalisa Zaman,RN RN ko2 Elidia Nichole, RN RN unique2 Peyton Muro [facility] Katie Wilhelm The chart was reviewed and I authenticate all verbal orders and agree with the evaluation and treatment provided.Corrections: (The following items were deleted from the chart) 07/16 23:35 23:35 BLOOD CULTURES ordered. EDMS EDMS 23:35 23:35 BLOOD CULTURES ordered. EDMS EDMS 07/17 01:54 01:46 C REACTIVE PROTEIN QUANTITATIV ordered. EDMS EDMS 03:26 01:55 COMPLETE BLOOD COUNT ordered. EDMS EDMS 03:26 01:55 BASIC METABOLIC PROFILE ordered. EDMS EDMS 03:27 01:55 MAGNESIUM LEVEL ordered. EDMS EDMS Attachments: 02:04 [facility] Payment Agreement [facility] 17:48 T-Sheet-- Draft Copy r 07/18 14:57 ECG/EKG gb Chart Complete MTDD
--- NOTE | 2016-07-19 18:17 | EDDOCDS ---
Physician Documentation [facility] Name: Isidra Delacruz Age: 75 yrs Sex: Female : 1940 Arrival Date: 07/16/2016 Time: 22:51 Bed Admit Hold Private MD: Disposition: 07/17/16 00:22 Hospitalization ordered by Rita Mayorga for Observation. Preliminary diagnosis are Pneumonia, unspecified organism, Shortness of breath. - [facility] - Status is Observation. ml6 - Condition is Stable. - Problem is an ongoing problem. - Symptoms are unchanged. Historical: - Allergies: Amoxicillin (Hives); Lisinopril (Swelling, Anaphylaxis); Oxycodone HClagitation; SULFA (SULFONAMIDES) (Hives); Temazepam (Swelling); - Home Meds: 1. Advair Diskus 250-50 mcg/dose Inhl dsdv 2 times per day 2. albuterol sulfate 2.5 mg /3 mL (0.083 %) Inhl nebu 4 times per day 3. albuterol sulfate 90 mcg/actuation Inhl aepb every 4 hours 4. alendronate 70 mg oral tab once wkly Tuesday 5. amlodipine 10 mg Oral tab 1 tab once daily 6. aspirin 81 mg Oral chew once daily 7. Calcium + Vitamin D 5oo/200 Oral twice a day 8. Colace 100 mg oral tab 1 cap 2 times per day takes 1 daily as needed 9. Coumadin 5 mg Oral tab once daily 10. erythromycin 5 mg/gram (0.5 %) Opht oint 6 times per day 11. ferrous sulfate 325 mg (65 mg iron) Oral cpER daily 12. fluoxetine 60 mg Oral tab once daily 13. fluticasone 50 mcg/actuation nasal spsn 2 sprays once daily 14. fluticasone-salmeterol 45-21 mcg/actuation inhalation HFAA 2 puffs 2 times per day 15. furosemide 80 mg oral tab 1 tab once daily 16. gabapentin 600 mg Oral tab 1 tab bid 17. loratadine 10 mg Oral tab 1 tab once daily 18. magnesium oxide 500 mg Oral cap nightly 19. Nitrostat 0.4 mg SL subl every 5 minutes prn 20. [place] 7.5-325 mg Oral tab QID prn 21. nystatin 100,000 unit/mL Oral susp 10 mL 4 times per day 22. oxybutynin chloride 15 mg Oral tr24 once daily 23. oxygen NC 2 liters continuous 24. polyethylene glycol 3350 17 gram/dose oral powd once daily 25. prednisone 10 mg Oral tab once daily 26. Protonix 40 mg Oral TbEC 1 tab once daily 27. simvastatin 10 mg Oral tab 1 tab once daily 28. Spiriva with HandiHaler 18 mcg Inhl CpDv 1 cap once daily 29. trazadone 100 mg 100 mg daily 30. trazodone 100 mg Oral tab 2 tabs nightly 31. Cefuroxime Oral 500 mg - PMHx: Anxiety; Cancer, Breast - Left; Cancer, Breast - Right; CHF; GERD; COPD; PE; - PSHx: Mastectomy- Bilateral; Tubal ligation; Ankle Arthroplasty, Left; Shoulder Arthroplasty, Left; - Social history: Smoking status: Patient states former smoker of tobacco. No barriers to communication noted, The patient speaks fluent Danish, Speaks appropriately for age. - Family history: Not pertinent. - : The pt / caregiver states he / she is not on anticoagulants. Home medication list is obtained from the patient, [employer] import data. - Exposure Risk Screening:: None identified. Vital Signs: 07/16 23:08 BP 161 / 72 LA Sitting (auto/reg); Pulse 99 MON; Resp 22 S; Temp 98.7(TE); Pulse Ox 93% cln on 2 lpm NC; Weight 86.18 kg / 189.99 lbs (R); Height 5 ft. 2 in. (157.48 cm) (R); Pain 0/10; 23:23 BP 169 / 75 (auto/); ko2 23:23 Pulse Ox 92% ; ko2 23:39 BP 154 / 89 (auto/); ko2 23:40 Pulse 102 MON; Pulse Ox 92% ; ko2 23:54 BP 146 / 79 (auto/); ko2 23:54 Pulse 94 MON; Pulse Ox 91% ; ko2 07/17 00:09 BP 147 / 84 (auto/); ko2 00:12 Pulse 92 MON; Pulse Ox 90% ; ko2 00:23 Pulse 92 MON; Pulse Ox 90% ; ko2 00:24 BP 145 / 81 (auto/); ko2 00:38 Pulse 92 MON; Pulse Ox 92% ; ko2 00:39 BP 186 / 89 (auto/); ko2 00:53 Pulse 96 MON; Pulse Ox 92% ; ko2 00:54 BP 175 / 80 (auto/); ko2 01:07 Pulse 92 MON; Pulse Ox 94% ; ko2 01:09 BP 160 / 81 (auto/); ko2 07/16 23:08 Body Mass Index 34.75 (86.18 kg, 157.48 cm) cln MDM: 07/16 23:08 -Blood Culture (Adults Only), peripheral from different site, or from device/port/PICC le etc. if present ordered. 23:08 Lunchroom Supervisor/Pulse Ox/q 15 min VS ordered. le 23:08 IV Saline Lock ordered. le 23:08 Oxygen at 4L/Min NC or Home dosage ordered. le 23:08 Rhythm Strip to chart ordered. le 23:08 B-Type Natiuretic Peptide Ordered. EDMS 23:08 Basic Metabolic Profile Ordered. EDMS 23:08 CBC with Diff Ordered. EDMS 23:08 Cardiac Injury Profile Ordered. EDMS 23:08 Troponin Ordered. EDMS 23:08 -Blood Culture Ordered. EDMS 23:09 Chest, 2 View (pa\E\lat) Ordered. EDMS 23:09 ECG WITH READING ER PHYS+CARDIAG ordered. EDMS 23:33 -Blood Culture (Adults Only), peripheral from different site, or from device/port/PICC ml3 etc. if present complete. 23:40 BED REQUEST+ADM ordered. EDMS 0204 00:01 INR Ordered. EDMS 00:01 levofloxacin 750 mg IVPB once over 90 mins ordered. le 00:01 Call Respiratory ordered. le 00:02 -Arterial Blood Gas Ordered. EDMS 00:03 Call Respiratory complete. ml3 00:17 DIFFERENTIAL NO CHARGE Ordered. EDMS 01:43 Financial registration complete. h 01:46 BLOOD CULTURES Ordered. EDMS 01:47 Abdomen,Flat Plate KUB Ordered. EDMS 01:47 ECHOCARD,DOPPLER/COLOR FLOW ordered. EDMS 01:47 CT Head without contrast Ordered. EDMS 01:47 CT Chest without contrast Ordered. EDMS 01:48 RESPIRATORY PANEL Ordered. EDMS 01:48 MRSA SCREEN Ordered. EDMS 01:48 SPUTUM CULTURE AND GRAM STAIN Ordered. EDMS 01:49 PACKED CELLS Ordered. EDMS 01:49 TYPE & SCREEN Ordered. EDMS 01:50 VITAMIN B12 LEVEL Ordered. EDMS 01:50 FOLATE Ordered. EDMS 01:50 IRON (FE) Ordered. EDMS 01:50 FERRITIN Ordered. EDMS 01:50 TOTAL IRON BINDING CAPACIT Ordered. EDMS 01:50 RETICULOCYTE COUNT Ordered. EDMS 01:50 PATHOLOGIST REVIEW COMPREHENSI Ordered. EDMS 01:51 URINALYSIS Ordered. EDMS 01:51 TOTAL PROTEIN,RANDOM URINE Ordered. EDMS 01:51 CREATININE,RANDOM URINE Ordered. EDMS 01:51 OSMOLALITY,URINE Ordered. EDMS 01:51 SODIUM,RANDOM URINE Ordered. EDMS 01:51 CHLORIDE,RANDOM URINE Ordered. EDMS 01:52 POTASSIUM,RANDOM URINE Ordered. EDMS 01:52 OCCULT BLOOD STOOL SPECIMEN Ordered. EDMS 01:52 PHYSICAL THERAPY EVAL & TREAT ordered. EDMS 01:52 RENAL US Ordered. EDMS 01:52 Duplex, Ext LOWER veins, bilat Ordered. EDMS 01:53 C REACTIVE PROTEIN QUANTITATIV Ordered. EDMS 01:55 C REACTIVE PROTEIN QUANTITATIV Ordered. EDMS 02:01 CLEAR LIQUIDS DIET ordered. EDMS 02:02 HEMOGLOBIN & HEMATOCRIT Ordered. EDMS 02:02 HEMOGLOBIN & HEMATOCRIT Ordered. EDMS 02:02 PROTHROMBIN TIME PROFILE\E\INR Ordered. EDMS 02:03 Admission / Observation Status ordered. EDMS 02:04 [facility] Payment Agreement was scanned into [employer] and attached to record. [facility] 03:29 BASIC METABOLIC PROFILE Ordered. EDMS 03:29 MAGNESIUM LEVEL Ordered. EDMS 03:29 COMPLETE BLOOD COUNT Ordered. EDMS 11:26 PROTHROMBIN TIME PROFILE\E\INR Ordered. EDMS 17:48 T-Sheet-- Draft Copy was scanned into [employer] and attached to record. klr 07/18 14:57 ECG/EKG was scanned into [employer] and attached to record. gb Administered Medications: 07/17 00:13 Drug: levofloxacin 750 mg [levofloxacin 750 mg/150 mL in 5 % dextrose intravenous ko2 piggyback] Route: IVPB; Infused Over: 90 mins; Site: left antecubital; Signatures: Dispatcher [employer] EDMS Dayami Soares, Reg Reg gb Jam Romero, Wrapper Caser Unit ml3 Tashia Wagner, STERILIZATION SPECIALIST STERILIZATION SPECIALISTChester Hinojosa, RN RN ml6 Annalisa Zaman,RN RN ko2 Elidia Nichole, RN RN unique2 Peyton Muro [facility] Katie Wilhelm The chart was reviewed and I authenticate all verbal orders and agree with the evaluation and treatment provided.Corrections: (The following items were deleted from the chart) 07/16 23:35 23:35 BLOOD CULTURES ordered. EDMS EDMS 23:35 23:35 BLOOD CULTURES ordered. EDMS EDMS 07/17 01:54 01:46 C REACTIVE PROTEIN QUANTITATIV ordered. EDMS EDMS 03:26 01:55 COMPLETE BLOOD COUNT ordered. EDMS EDMS 03:26 01:55 BASIC METABOLIC PROFILE ordered. EDMS EDMS 03:27 01:55 MAGNESIUM LEVEL ordered. EDMS EDMS Attachments: 02:04 [facility] Payment Agreement [facility] 17:48 T-Sheet-- Draft Copy r 07/18 14:57 ECG/EKG gb Chart Complete MTDD
--- NOTE | 2016-07-19 18:17 | EDDOCDS ---
Nurse's Notes [facility] Name: Isidra Delacruz Age: 75 yrs Sex: Female : 1940 Arrival Date: 07/16/2016 Time: 22:51 Bed Admit Hold Private MD: Diagnosis: Pneumonia, unspecified organism;Shortness of breath Presentation: 07/16 22:58 Presenting complaint: EMS states: chest cold since Fernando. Productive cough ko2 developed shortness of breath with movement today. On Cefuroxime 500 mg and Lasix was increased from 60 mg to 80 mg by primary care provider. Suicide/Homicide risk assessment- the patient denies having any suicidal and/or homicidal ideations and does not present with any other emotional, behavioral or mental health complaints. 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 Transition of care: patient was not received from another setting of care. Care prior to arrival: See EMS report. Medications administered prior to arrival: Nebulized Albuterol. 22:58 Acuity: GALA Level 3 ko2 22:58 Method Of Arrival: Ambulance ko2 07/17 00:15 Adult Sepsis Screening: The patient does not have new or worsening altered mentation. ko2 Patient's respiratory rate is less than 22. Systolic blood pressure is greater than 100. Patient has a qSOFA score of 0- Negative Sepsis Screen. Triage Assessment: 07/16 23:08 General: Appears ill, Behavior is appropriate for age, cooperative. Pain: Denies pain. ko2 Neurological: Level of Consciousness is awake, alert, Oriented to person, place, time. Respiratory: Onset: The symptoms/episode began/occurred gradually, Airway is patent Respiratory effort is even, unlabored, Respiratory pattern is regular, symmetrical, Breath sounds are coarse Breath sounds with crackles Breath sounds with rhonchi Reports cough that is non-productive. GI: Abdomen is non- distended. Derm: Skin is normal, skin tear to right hand. Musculoskeletal: Range of motion intact in all extremities. Historical: - Allergies: Amoxicillin (Hives); Lisinopril (Swelling, Anaphylaxis); Oxycodone HClagitation; SULFA (SULFONAMIDES) (Hives); Temazepam (Swelling); - Home Meds: 1. Advair Diskus 250-50 mcg/dose Inhl dsdv 2 times per day 2. albuterol sulfate 2.5 mg /3 mL (0.083 %) Inhl nebu 4 times per day 3. albuterol sulfate 90 mcg/actuation Inhl aepb every 4 hours 4. alendronate 70 mg oral tab once wkly Tuesday 5. amlodipine 10 mg Oral tab 1 tab once daily 6. aspirin 81 mg Oral chew once daily 7. Calcium + Vitamin D 5oo/200 Oral twice a day 8. Colace 100 mg oral tab 1 cap 2 times per day takes 1 daily as needed 9. Coumadin 5 mg Oral tab once daily 10. erythromycin 5 mg/gram (0.5 %) Opht oint 6 times per day 11. ferrous sulfate 325 mg (65 mg iron) Oral cpER daily 12. fluoxetine 60 mg Oral tab once daily 13. fluticasone 50 mcg/actuation nasal spsn 2 sprays once daily 14. fluticasone-salmeterol 45-21 mcg/actuation inhalation HFAA 2 puffs 2 times per day 15. furosemide 80 mg oral tab 1 tab once daily 16. gabapentin 600 mg Oral tab 1 tab bid 17. loratadine 10 mg Oral tab 1 tab once daily 18. magnesium oxide 500 mg Oral cap nightly 19. Nitrostat 0.4 mg SL subl every 5 minutes prn 20. [place] 7.5-325 mg Oral tab QID prn 21. nystatin 100,000 unit/mL Oral susp 10 mL 4 times per day 22. oxybutynin chloride 15 mg Oral tr24 once daily 23. oxygen NC 2 liters continuous 24. polyethylene glycol 3350 17 gram/dose oral powd once daily 25. prednisone 10 mg Oral tab once daily 26. Protonix 40 mg Oral TbEC 1 tab once daily 27. simvastatin 10 mg Oral tab 1 tab once daily 28. Spiriva with HandiHaler 18 mcg Inhl CpDv 1 cap once daily 29. trazadone 100 mg 100 mg daily 30. trazodone 100 mg Oral tab 2 tabs nightly 31. Cefuroxime Oral 500 mg - PMHx: Anxiety; Cancer, Breast - Left; Cancer, Breast - Right; CHF; GERD; COPD; PE; - PSHx: Mastectomy- Bilateral; Tubal ligation; Ankle Arthroplasty, Left; Shoulder Arthroplasty, Left; - Social history: Smoking status: Patient states former smoker of tobacco. No barriers to communication noted, The patient speaks fluent Syriac, Speaks appropriately for age. - Family history: Not pertinent. - : The pt / caregiver states he / she is not on anticoagulants. Home medication list is obtained from the patient, [id number] import data. - Exposure Risk Screening:: None identified. Screenin/04 00:14 Screening information is obtained from the patient. Fall risk: At risk due to age. ko2 Assistance ADL's: Requires assistance with meal preparation, this assistance is provided by family members, bathing, assistance is provided by family members, dressing, assistance is provided by family members, toileting, assistance is provided by family members, ambulation, assistance is provided by family members, housework, assistance is provided by family members, medication administration, assistance is provided by family members. Abuse/DV Screen: The patient / caregiver reports he/she is: not in a situation that causes fear, pain or injury. Nutritional screening: No deficits noted. Advance Directives: Currently, there is There is an active DNR order and the pt has a copy here at this time. home support is adequate. Assessment: 07/16 23:16 General: See triage assessment. ko2 07/17 00:13 General: Appears in no apparent distress, comfortable, Behavior is appropriate for age, ko2 cooperative. Pain: Denies pain. Neurological: Level of Consciousness is awake, alert. Cardiovascular: Rhythm is. Respiratory: Airway is patent Respiratory effort is even, unlabored, Breath sounds are coarse bilaterally. Breath sounds with rhonchi. Derm: Skin is normal. 01:13 General: Appears in no apparent distress, comfortable, Behavior is appropriate for age, ko2 cooperative. Neurological: Level of Consciousness is awake, alert. Respiratory: Airway is patent Respiratory effort is even, unlabored. Derm: Skin is normal. 02:04 General: Appears in no apparent distress, comfortable, Behavior is appropriate for age, ko2 cooperative. Pain: Denies pain. Neurological: Level of Consciousness is awake, alert. Respiratory: Airway is patent Respiratory effort is even, unlabored. Derm: Skin is normal. 03:19 General: Appears in no apparent distress, comfortable, Behavior is appropriate for age, ko2 cooperative. Neurological: Level of Consciousness is awake, alert. Respiratory: Airway is patent Respiratory effort is even, unlabored. Derm: Skin is normal. 03:19 General: Report given to Isabel Dahl, RN [facility] Nurse. See [facility] for further ko2 documentation. 09:12 Cardiovascular: Rhythm is sinus rhythm. [facility] Vital Signs: 07/16 23:08 BP 161 / 72 LA Sitting (auto/reg); Pulse 99 MON; Resp 22 S; Temp 98.7(TE); Pulse Ox 93% cln on 2 lpm NC; Weight 86.18 kg (R); Height 5 ft. 2 in. (157.48 cm) (R); Pain 0/10; 23:23 BP 169 / 75 (auto/); ko2 23:23 Pulse Ox 92% ; ko2 23:39 BP 154 / 89 (auto/); ko2 23:40 Pulse 102 MON; Pulse Ox 92% ; ko2 23:54 BP 146 / 79 (auto/); ko2 23:54 Pulse 94 MON; Pulse Ox 91% ; ko2 02 00:09 BP 147 / 84 (auto/); ko2 00:12 Pulse 92 MON; Pulse Ox 90% ; ko2 00:23 Pulse 92 MON; Pulse Ox 90% ; ko2 00:24 BP 145 / 81 (auto/); ko2 00:38 Pulse 92 MON; Pulse Ox 92% ; ko2 00:39 BP 186 / 89 (auto/); ko2 00:53 Pulse 96 MON; Pulse Ox 92% ; ko2 00:54 BP 175 / 80 (auto/); ko2 01:07 Pulse 92 MON; Pulse Ox 94% ; ko2 01:09 BP 160 / 81 (auto/); ko2 07/16 23:08 Body Mass Index 34.75 (86.18 kg, 157.48 cm) cln Vitals: 00:15 Log In Time N/A - ambulance arrival. ko2 ED Course: 07/16 22:53 Patient visited by Jam Romero, Senior Asic Engineer. ml3 22:53 Candi Beltran,LEYDA is Primary Nurse. ml3 22:53 Annalisa Zaman,LEYDA is Primary Nurse. ml3 22:53 Tashia Wagner FNP is PHCP. le 22:53 Patient moved to Waiting ml3 22:53 Patient moved to 17 ml3 23:00 Triage Initiated ko2 23:09 Patient visited by Tashia Wagner FNP. le 23:09 Pt greeted and oriented to ED. Patient advised of names of staff involved in care, cln location of call forrester, wait times and NPO status. 23:24 EKG done. (by ED staff). Reviewed by Tashia CORDOVA. cln 23:25 Patient has correct armband on for positive identification. Placed in gown. Bed in low cln position. Call light in reach. Side rails up X 1. 23:28 Patient visited by Tashia Wagner FNP. le 23:35 -Blood Culture Sent. mlc 23:35 B-Type Natiuretic Peptide Sent. mlc 23:35 Basic Metabolic Profile Sent. mlc 23:35 CBC with Diff Sent. mlc 23:35 Cardiac Injury Profile Sent. mlc 23:35 Troponin Sent. mlc 07/17 00:13 Patient visited by Annalisa Zaman RN. ko2 00:15 The patient / caregiver is instructed regarding the plan of care and ED course. ko2 00:15 Inserted saline lock: 20 gauge in right antecubital area. No procedures done that ko2 require assistance. 00:22 Rita Mayorga is Hospitalizing Provider. le 00:33 Dr Mayorga notified of PT 105.3 and INR 14.44. ko2 01:29 DIFFERENTIAL NO CHARGE Sent. ko2 02:04 [facility] [place] was scanned into [employer] and attached to record. h 02:34 Patient moved to Admit Hold ml3 02:53 CT Head without contrast Returned. EDMS 02:53 CT Chest without contrast Returned. EDMS 03:11 Patient moved to Jun 04:40 Primary Nurse role handed off by Candi Beltran RN ko2 04:50 Inserted saline lock: 20 gauge in left antecubital area The patient tolerated the jun procedure well. 04:51 Patient moved to Admit Hold ml3 05:13 RENAL US Returned. EDMS 07:44 Primary Nurse role handed off by Annalisa Zaman,LEYDA ar3 08:49 Abdomen,Flat Plate KUB Returned. EDMS 08:49 Chest, 2 View (pa\E\lat) Returned. EDMS 09:12 Patient visited by Beau Vargas, LEYDA. bcj 10:43 Duplex, Ext LOWER veins, bilat Returned. EDMS 17:09 Patient visited by Chester Segundo, LEYDA. ml6 17:48 T-Sheet-- Draft Copy was scanned into [employer] and attached to record. klr 07/18 14:57 ECG/EKG was scanned into [employer] and attached to record. gb Administered Medications: 07/17 00:13 Drug: levofloxacin 750 mg [levofloxacin 750 mg/150 mL in 5 % dextrose intravenous ko2 piggyback] Route: IVPB; Infused Over: 90 mins; Site: left antecubital; RT: 00:29 ABG's drawn from left radial artery pressure held for 5 minutes no bleeding noted nk1 pressure bandage applied specimen sent pt. tolerated well. Order Results: Lab Order: B-Type Natiuretic Peptide; SPEC'M 07/16/16 23:32 Test: BRAIN NATRIURETIC PEPTIDE; Value: 86.4; Range: <100; Units: PG/ML; Status: F Lab Order: Basic Metabolic Profile; SPEC'M 07/16/16 23:32 Test: GLUCOSE, FASTING; Value: 247; Range: 83-110; Abnormal: Above high normal; Units: MG/DL; Status: F Test: BLOOD UREA NITROGEN; Value: 65; Range: 7-18; Abnormal: Above high normal; Units: MG/DL; Status: F Test: CREATININE FOR GFR; Value: 1.91; Range: 0.55-1.02; Abnormal: Above high normal; Units: MG/DL; Status: F Test: GLOMERULAR FILTRATION RATE; Value: 27.1; Range: >39; Abnormal: Below low normal; Status: F Test: SODIUM LEVEL; Value: 140; Range: 136-145; Units: MEQ/L; Status: F Test: POTASSIUM SERUM; Value: 3.8; Range: 3.5-5.1; Units: MEQ/L; Status: F Test: CHLORIDE LEVEL; Value: 94; Range: 98-107; Abnormal: Below low normal; Units: MEQ/L; Status: F Test: CARBON DIOXIDE LEVEL; Value: 36; Range: 21-32; Abnormal: Above high normal; Units: MEQ/L; Status: F Test: ANION GAP; Value: 10; Range: 8-16; Units: MEQ/L; Status: F Test: CALCIUM LEVEL; Value: 9.0; Range: 8.8-10.2; Units: MG/DL; Status: F Test Note: ; Units are mL/min/1.73 m2 Chronic Kidney Disease Staging per NKF: Stage I & II GFR >=60 Normal to Mildly Decreased Stage III GFR 30-59 Moderately Decreased Stage IV GFR 15-29 Severely Decreased Stage V GFR <15 Very Little GFR Left ESRD GFR <15 on REEL WORKER Lab Order: CBC with Diff; [facility] 07/16/16 23:32 Test: WHITE BLOOD COUNT; Value: 11.8; Range: 4.0-10.0; Abnormal: Above high normal; Units: K/mm3; Status: F Test: RED BLOOD COUNT; Value: 2.57; Range: 4.00-5.40; Abnormal: Below low normal; Units: M/mm3; Status: F Test: HEMOGLOBIN; Value: 7.8; Range: 12.0-16.0; Abnormal: Below low normal; Units: g/dl; Status: F Test: HEMATOCRIT; Value: 24.2; Range: 36.0-47.0; Abnormal: Below low normal; Units: %; Status: F Test: MEAN CORPUSCULAR VOLUME; Value: 94.1; Range: 80.0-96.0; Units: fl; Status: F Test: MEAN CORPUSCULAR HEMOGLOBIN; Value: 30.6; Range: 27.0-33.0; Units: pg; Status: F Test: MEAN CORPUSCULAR HGB CONC; Value: 32.5; Range: 32.0-36.5; Units: g/dl; Status: F Test: RED CELL DISTRIBUTION WIDTH; Value: 16.2; Range: 11.5-14.5; Abnormal: Above high normal; Units: %; Status: F Test: PLATELET COUNT, AUTOMATED; Value: 315; Range: 150-450; Units: k/mm3; Status: F Test: NEUTROPHILS; Value: 90; Range: 35-75; Abnormal: Above high normal; Units: %; Status: F Test: BANDS; Value: 1; Range: < 11; Units: %; Status: F Test: LYMPHOCYTES; Value: 6; Range: 16-52; Abnormal: Below low normal; Units: %; Status: F Test: MONOCYTES; Value: 2; Range: 0-8; Units: %; Status: F Test: EOSINOPHILS; Value: 1; Range: 0-5; Units: %; Status: F Test: NUCLEATED RED BLOOD CELL; Value: 4; Range: 0-0; Abnormal: Above high normal; Units: %; Status: F Test: ANISOCYTOSIS; Value: 1+; Status: F Lab Order: Cardiac Injury Profile; [facility] 07/16/16 23:32 Test: CPK CREATINE PHOSPHOKINASE; Value: 64; Range: 26-192; Units: U/L; Status: F Test: CK-MB VALUE MASS; Value: 1.0; Range: 0.0-3.6; Units: NG/ML; Status: F Test: MB/CK RELATIVE INDEX; Value: 1.56; Range: < OR =4; Status: F Test Note: ; DIAGNOSIS CRITERIA MMB ng/ml Relative Index (RI) NON-AMI < or = 5 N/A R[place] ZONE > 5 < or = 4 AMI > 5 > 4 Lab Order: Troponin; [facility] 07/16/16 23:32 Test: TROPONIN I; Value: < 0.02; Range: < 0.10; Units: NG/ML; Status: F Test Note: ; Troponin I Reference Interval for Detectent LOCI: 99th Percentile= 0.00-0.045 ng/ml Risk Stratification: <= 0.10 ng/ml Decreased Risk for Adverse Clinical Events. 0.10-1.50 ng/ml Increased Risk for Adverse Clinical Events. Evaluation of additional criterion and/or repeat testing in 2-6 hours is suggested to rule out myocardial damage. >= 1.50 ng/ml Indicative of Myocardial Injury. Lab Order: INR; [facility] 07/17/16 00:00 Test: PROTHROMBIN TIME; Value: 105.3; Range: 12.3-14.5; Abnormal: Above high normal; Units: SECONDS; Status: F Test: INR; Value: 14.44; Abnormal: Above upper panic limits; Status: F Test Note: ; THERAPUTIC HUMAN INR VALUES INDICATIONS NORMAL RANGES PROPHYLAXIS/TREATMENT OF: VENOUS THROMBOSIS 2.0-3.0 PULMONARY EMBOLISM 2.0-3.0 PREVENTION OF SYSTEMIC EMBOLISM FROM: TISSUE HEART VALVES 2.0-3.0 ACUTE MYOCARDIAL INFARCTION 2.0-3.0 VALVULAR HEART DISEASE 2.0-3.0 ATRIAL FIBRILLATION 2.0-3.0 MECHANICAL VALVES(HIGH RISK) 2.5-3.5 RECURRENT MYOCARDIAL INFARCTION 2.5-3.5 Lab Order: -Arterial Blood Gas; SPEC 07/17/16 00:13 Test: ABG pH (ARTERIAL); Value: 7.479; Range: 7.350-7.450; Abnormal: Above high normal; Units: UNITS; Status: F Test: ABG PARTIAL PRESSURE CO2; Value: 49.7; Range: 35.0-45.0; Abnormal: Above high normal; Units: mmHg; Status: F Test: ABG PARTIAL PRESSURE O2; Value: 66.0; Range: 75.0-100.0; Abnormal: Below low normal; Units: mmHg; Status: F Test: ABG TOTAL CO2; Value: 37.6; Range: 23.0-31.0; Abnormal: Above high normal; Units: MEQ/L; Status: F Test: ABG HCO3; Value: 36.1; Range: 22.0-26.0; Abnormal: Above high normal; Units: MEQ/L; Status: F Test: ABG BASE EXCESS; Value: 11.4; Range: -2.0-2.0; Abnormal: Above high normal; Status: F Test: ABG STANDARD HCO3; Value: 35.0; Range: 22.0-26.0; Abnormal: Above high normal; Units: MEQ/L; Status: F Test: ABG O2 SATURATION; Value: 92.4; Range: 95.0-99.0; Abnormal: Below low normal; Units: %; Status: F Test: ABG DEVICE; Value: NASAL CARLOS; Status: F Lab Order: PLATELET ESTIMATE; [facility]' 07/16/16 23:32 Test: PLATELET ESTIMATE; Value: NORMAL; Range: NORMAL; Status: F Lab Order: RESPIRATORY PANEL; [facility]' 07/17/16 04:32 Test: RESPIRATORY PANEL; Value: RP PANEL RESULT NEGATIVE by PCR; Status: F Test: RESPIRATORY PANEL; Value: Comments:; Status: F Test Note: ; This respiratory PCR panel detects Influenza A H1, H3 and 2009 H1 viruses, Influenza B virus, Respiratory syncytial virus, Human metapneumovirus, Parainfluenza virus 1, 2, 3 and 4, Adenovirus, Rhinovirus/Enterovirus, Coronavirus HKU1, NL63, OC43 and 229E, Bordetella pertussis, Mycoplasma pneumoniae and Chlamydia pneumoniae. Lab Order: SPUTUM CULTURE AND GRAM STAIN; 07/17/16 11:06 Test: GRAM STAIN; Value: GRAM STAIN RESULT; Status: F Test: GRAM STAIN; Value: QUALITY: GOOD; Status: F Test: GRAM STAIN; Value: MANY WBCS; Status: F Test: GRAM STAIN; Value: FEW EPITHELIAL CELLS; Status: F Test: GRAM STAIN; Value: MODERATE GRAM POSITIVE RODS; Status: F Test: GRAM STAIN; Value: FEW GRAM NEGATIVE RODS; Status: F Lab Order: TYPE & SCREEN; 07/17/16 Test: BLOOD TYPE; Value: B POS; Status: F Test: AB SCREEN (INDIRECT LAINEY)GEL; Value: NEGATIVE; Status: F Test: IMMEDIATE SPIN CROSSMATCH; Value: [id number] B POSITIVE Compatible? Y; Status: F Lab Order: VITAMIN B12 LEVEL; 07/17/16 Test: VITAMIN B12 LEVEL; Range: 247-911; Units: PG/ML; Status: I Lab Order: FOLATE; 07/17/16 Test: FOLATE; Range: >5.4; Units: NG/ML; Status: I Lab Order: FERRITIN; 07/17/16 Test: FERRITIN; Value: 74; Range: 8-252; Units: NG/ML; Status: F Lab Order: TOTAL IRON BINDING CAPACIT; 07/17/16 Test: IRON (FE); Value: 75; Range: 50-170; Units: UG/DL; Status: F Test: TOTAL IRON BINDING CAPACITY; Value: 296; Range: 250-450; Units: UG/DL; Status: F Test: PERCENT SATURATION; Value: 25.3; Range: 13.2-37.4; Units: %; Status: F Lab Order: RETICULOCYTE COUNT; 07/17/16 Test: RETICULOCYTE % [id number]; Value: 3.50; Range: 0.5-1.5; Abnormal: Above high normal; Units: %; Status: F Test: RETICULOCYTE ABSOLUTE [id number]; Value: 86; Range: 17-77; Abnormal: Above high normal; Units: x10(9)/L; Status: F Test: RETIC HEMOGLOBIN CONTENT CHr; Value: 35.4; Range: 24-36; Units: PG; Status: F Lab Order: PATHOLOGIST REVIEW COMPREHENSI; SPEC'M 07/17/16 02:17 Test: SLIDE REVIEW; Value: Report; Status: F Test: SOURCE; Value: PERIPHERAL SMEAR; Status: F Test: REASON FOR REVIEW; Value: ANEMIA / RBC MORPH; Status: F Test Note: ; Slide and/or specimen referred to Pathologist for review. Results of the review are located in the EMR Pathology module under Peripheral Smear when completed. Lab Order: URINALYSIS; SPEC'M 07/17/16 11:08 Test: APPEARANCE, URINE; Value: CLEAR; Range: CLEAR; Status: F Test: COLOR, URINE; Value: STRAW; Range: YELLOW; Status: F Test: PH,URINE; Value: 5.0; Range: 5.0-9.0; Units: UNITS; Status: F Test: SPECIFIC GRAVITY URINE AUTO; Value: 1.014; Range: 1.002-1.035; Status: F Test: PROTEIN, URINE AUTO; Value: NEGATIVE; Range: NEGATIVE; Units: mg/dL; Status: F Test: GLUCOSE, URINE (UA) AUTO; Value: NEGATIVE; Range: NEGATIVE; Units: mg/dL; Status: F Test: KETONE, URINE AUTO; Value: NEGATIVE; Range: NEGATIVE; Units: mg/dL; Status: F Test: UROBILINOGEN, URINE AUTO; Value: 0.2; Range: 0.0-2.0; Units: mg/dL; Status: F Test: BILIRUBIN, URINE AUTO; Value: NEGATIVE; Range: NEGATIVE; Status: F Test: NITRITE, URINE AUTO; Value: NEGATIVE; Range: NEGATIVE; Status: F Test: LEUKOCYTE ESTERASE, URINE AUTO; Value: TRACE; Range: NEGATIVE; Abnormal: Above high normal; Status: F Test: BLOOD, URINE BLOOD; Value: NEGATIVE; Range: NEGATIVE; Status: F Test: WBC, URINE AUTO; Value: 4; Range: 0-3; Abnormal: Above high normal; Units: /HPF; Status: F Test: RBC, URINE AUTO; Value: 0; Range: 0-3; Units: /HPF; Status: F Test: BACTERIA, URINE AUTO; Value: NEGATIVE; Range: NEGATIVE; Status: F Test: SQUAMOUS EPITHELIAL CELL UR AU; Value: 0; Range: 0-6; Units: /HPF; Status: F Test: HYALINE CAST, URINE AUTO; Value: 0; Range: 0-1; Units: /LPF; Status: F Lab Order: TOTAL PROTEIN,RANDOM URINE; 07/17/16 11:08 Test: TOTAL PROTEIN,RANDOM URINE; Value: 34.7; Range: 0.0-12.0; Abnormal: Above high normal; Units: MG/DL; Status: F Lab Order: CREATININE,RANDOM URINE; 07/17/16 11:08 Test: CREATININE,RANDOM URINE; Value: 51.4; Units: MG/DL; Status: F Lab Order: OSMOLALITY,URINE; 07/17/16 11:08 Test: OSMOLALITY URINE; Value: 484; Range: 500-800; Abnormal: Below low normal; Units: MOSM/KG; Status: F Lab Order: SODIUM,RANDOM URINE; 07/17/16 11:08 Test: SODIUM,RANDOM URINE; Value: 17; Units: MEQ/L; Status: F Lab Order: CHLORIDE,RANDOM URINE; 07/17/16 11:08 Test: CHLORIDE,RANDOM URINE; Value: < 10; Units: MEQ/L; Status: F Lab Order: POTASSIUM,RANDOM URINE; 07/17/16 11:08 Test: POTASSIUM RANDOM URINE; Value: 36.7; Units: MEQ/L; Status: F Lab Order: OCCULT BLOOD STOOL SPECIMEN; 07/17/16 11:07 Test: OCCULT BLOOD; Value: OCCULT BLOOD 1 POSITIVE; Abnormal: Abnormal; Status: F Lab Order: C REACTIVE PROTEIN QUANTITATIV; 07/16/16 23:32 Test: C REACTIVE PROTEIN QUANTITATIV; Value: 3.77; Range: 0.00-0.30; Abnormal: Above high normal; Units: MG/DL; Status: F Lab Order: C REACTIVE PROTEIN QUANTITATIV; 07/17/16 06:37 Test: C REACTIVE PROTEIN QUANTITATIV; Value: 3.58; Range: 0.00-0.30; Abnormal: Above high normal; Units: MG/DL; Status: F Lab Order: HEMOGLOBIN & HEMATOCRIT; 07/17/16 12:53 Test: HEMOGLOBIN; Value: 7.8; Range: 12.0-16.0; Abnormal: Below low normal; Units: g/dl; Status: F Test: HEMATOCRIT; Value: 24.0; Range: 36.0-47.0; Abnormal: Below low normal; Units: %; Status: F Lab Order: PROTHROMBIN TIME PROFILE\E\INR; [facility]' 07/17/16 12:53 Test: PROTHROMBIN TIME; Value: 18.0; Range: 12.3-14.5; Abnormal: Above high normal; Units: SECONDS; Status: F Test: INR; Value: 1.48; Status: F Test Note: ; THERAPUTIC HUMAN INR VALUES INDICATIONS NORMAL RANGES PROPHYLAXIS/TREATMENT OF: VENOUS THROMBOSIS 2.0-3.0 PULMONARY EMBOLISM 2.0-3.0 PREVENTION OF SYSTEMIC EMBOLISM FROM: TISSUE HEART VALVES 2.0-3.0 ACUTE MYOCARDIAL INFARCTION 2.0-3.0 VALVULAR HEART DISEASE 2.0-3.0 ATRIAL FIBRILLATION 2.0-3.0 MECHANICAL VALVES(HIGH RISK) 2.5-3.5 RECURRENT MYOCARDIAL INFARCTION 2.5-3.5 Lab Order: BASIC METABOLIC PROFILE; [facility] 07/17/16 06:37 Test: GLUCOSE, FASTING; Value: 135; Range: 83-110; Abnormal: Above high normal; Units: MG/DL; Status: F Test: BLOOD UREA NITROGEN; Value: 63; Range: 7-18; Abnormal: Above high normal; Units: MG/DL; Status: F Test: CREATININE FOR GFR; Value: 1.72; Range: 0.55-1.02; Abnormal: Above high normal; Units: MG/DL; Status: F Test: GLOMERULAR FILTRATION RATE; Value: 30.6; Range: >39; Abnormal: Below low normal; Status: F Test: SODIUM LEVEL; Value: 139; Range: 136-145; Units: MEQ/L; Status: F Test: POTASSIUM SERUM; Value: 3.6; Range: 3.5-5.1; Units: MEQ/L; Status: F Test: CHLORIDE LEVEL; Value: 96; Range: 98-107; Abnormal: Below low normal; Units: MEQ/L; Status: F Test: CARBON DIOXIDE LEVEL; Value: 37; Range: 21-32; Abnormal: Above high normal; Units: MEQ/L; Status: F Test: ANION GAP; Value: 6; Range: 8-16; Abnormal: Below low normal; Units: MEQ/L; Status: F Test: CALCIUM LEVEL; Value: 8.4; Range: 8.8-10.2; Abnormal: Below low normal; Units: MG/DL; Status: F Test Note: ; Units are mL/min/1.73 m2 Chronic Kidney Disease Staging per NKF: Stage I & II GFR >=60 Normal to Mildly Decreased Stage III GFR 30-59 Moderately Decreased Stage IV GFR 15-29 Severely Decreased Stage V GFR <15 Very Little GFR Left ESRD GFR <15 on REEL WORKER Lab Order: MAGNESIUM LEVEL; SPEC07/17/16 06:37 Test: MAGNESIUM LEVEL; Value: 1.7; Range: 1.8-2.4; Abnormal: Below low normal; Units: MG/DL; Status: F Lab Order: COMPLETE BLOOD COUNT; [facility]/17[facility]16 06:37 Test: WHITE BLOOD COUNT; Value: 11.9; Range: 4.0-10.0; Abnormal: Above high normal; Units: K/mm3; Status: F Test: RED BLOOD COUNT; Value: 2.30; Range: 4.00-5.40; Abnormal: Below low normal; Units: M/mm3; Status: F Test: HEMOGLOBIN; Value: 6.8; Range: 12.0-16.0; Abnormal: Critical Low; Units: g/dl; Status: F Test: HEMATOCRIT; Value: 21.3; Range: 36.0-47.0; Abnormal: Below low normal; Units: %; Status: F Test: MEAN CORPUSCULAR VOLUME; Value: 92.7; Range: 80.0-96.0; Units: fl; Status: F Test: MEAN CORPUSCULAR HEMOGLOBIN; Value: 29.6; Range: 27.0-33.0; Units: pg; Status: F Test: MEAN CORPUSCULAR HGB CONC; Value: 31.9; Range: 32.0-36.5; Abnormal: Below low normal; Units: g/dl; Status: F Test: RED CELL DISTRIBUTION WIDTH; Value: 16.1; Range: 11.5-14.5; Abnormal: Above high normal; Units: %; Status: F Test: PLATELET COUNT, AUTOMATED; Value: 278; Range: 150-450; Units: k/mm3; Status: F Radiology Order: Chest, 2 View (pa\E\lat) Test: Chest, 2 View (pa\E\lat) REASON FOR EXAMINATION: Shortness of Breath; CHEST X-RAY: Two views.; ; HISTORY: Shortness of breath.; ; Comparison study July 06, 2016.; ; FINDINGS: There is coarse bibasilar plate-like atelectasis. Lungs are; hyperinflated. Increased density is seen in the lingular segment of the left; upper lobe on lateral radiograph consistent with plate-like atelectasis here as; well. There are degenerative changes in the thoracic spine. Pleural angles are; sharp. Heart is not felt to be enlarged.; ; IMPRESSION: Coarse bilateral lower lobe and lingular plate-like atelectasis.; Hyperinflation.; ; ; Signed by; Roberto Velazquez MD 07/17/2016 10:06 A; Radiology Order: Abdomen,Flat Plate KUB Test: Abdomen,Flat Plate KUB REASON FOR EXAMINATION: IVC filter; KUB: Single view.; ; HISTORY: Inferior vena cava filter.; ; Comparison KUB study is from May 19, 2015.; ; FINDINGS: There is some orally administered barium in the tip of the cecum.; Moderate stool is seen in the colon. A vena cava filter is again noted over the; lumbar spine at approximately L3-4. There are diffuse degenerative disc changes; in the lumbar spine and a levoconvex curvature is seen. Flank stripes are; intact. Psoas margins are symmetric.; ; IMPRESSION: IVC filter noted in place unchanged from 2014. Moderate colonic; stool.; ; ; Signed by; Roberto Velazquez MD 07/17/2016 10:06 A; Radiology Order: CT Head without contrast Test: CT Head without contrast REASON FOR EXAMINATION: r/o pna; ; CLINICAL HISTORY: Pneumonia.; TECHNIQUE: Multiple axial brain CT scan sections were obtained from base to vertex without contrast a; dministration.; COMMENTS:; The study shows normal configuration of sella turcica. There are no intra or extra-axial collections.; There is no mass effect or midline shift. There is no evidence of hematoma formation. No hydrocephal; us is present. No abnormal calcifications are noted.; No significant abnormalities are seen either in the posterior fossa or supratentorial compartment.; The sinuses and mastoid air cells are patent.; IMPRESSION:; No evidence of acute intracranial pathology.; Thank you for your kind referral of this patient.; ; Radiology Order: CT Chest without contrast Test: CT Chest without contrast REASON FOR EXAMINATION: r/o pna; ; CLINICAL HISTORY: Suspected pneumonia.; TECHNIQUE: Multiple axial CT images were obtained through chest without IV contrast material. MPR cor; onal and sagittal sequences were obtained.; COMMENTS:; Bilateral basilar atelectatic pulmonary changes.; Moderate pulmonary emphysema.; Mild subsegmental atelectasis in the left lower lobe.; There is no evidence of pleural or parenchymal mass. There are no pleural effusions. There is no evid; ence of hilar or mediastinal lymphadenopathy. The heart and great vessels are within normal limits.; The visualized portions of the liver are of uniform attenuation without mass or defect. There is no i; ntra or extrahepatic biliary ductal dilatation. The spleen is unremarkable. The visualized pancreas i; s of normal contour and attenuation characteristics. There is no evidence of adrenal mass. The visual; ized portions of the kidneys present no abnormalities.; The bony structures are free of lytic or blastic lesions. Multilevel degenerative changes are seen in; volving the thoracic spine. Scattered calcifications are seen involving the aorta and visualized maicol; r branches compatible with atherosclerosis.; Small sliding hernia.; IMPRESSION:; Mild subsegmental atelectasis in the left lower lobe.; Thank you for your kind referral of this patient.; ; ; Radiology Order: RENAL US Test: RENAL US REASON FOR EXAMINATION: acute on chronic renal; ; CLINICAL HISTORY: Pain.; TECHNIQUE: Realtime sonographic images were obtained in multiple projections.; COMMENTS:; The right kidney measures 10.6x6.1x5.2 cm and the left kidney measures 10.1x4.4x5.1 cm. Both kidn; eys are free of hydronephrosis. There is no evidence of solid or cystic mass. There is no perinephric; fluid. There is no renal calculus.; IMPRESSION:; Normal study.; Thank you for your kind referral of this patient.; ; ; Radiology Order: Duplex, Ext LOWER veins, bilat Test: Duplex, Ext LOWER veins, bilat REASON FOR EXAMINATION: acute on chronic renal; Duplex extremity venous ultrasound: Bilateral lower extremity.; ; History: Shortness of breath. Question DVT.; ; Findings: The deep veins are anechoic and fully compressible from the groin to; the popliteal fossa in the right and left lower extremity. Color flow imaging is; homogeneous. Spectral Doppler interrogation demonstrates intact respiratory; variation in flow and normal manual augmentation of flow. There is no evidence; of deep vein thrombosis.; ; Impression:; ; Negative bilateral lower extremity duplex venous ultrasound. No evidence of deep; vein thrombosis.; ; ; Signed by; Roberto Velazquez MD 07/17/2016 10:01 A; Outcome: 00:22 Decision to Hospitalize by Provider. le 17:08 Discharge Assessment: patient administered narcotics - no. The following High Risk ml6 Discharge criteria are identified: None. Admitted to PCU accompanied by nurse, accompanied by tech. Condition: stable. CT Study completed. Property :Personal belongings accompany Pt. 17:16 Patient left the ED. ml6 Signatures: Dispatcher [employer] EDBeau Oliveira, RN LEYDA Lal, Arti Dale RN Dayami Suresh, Reg Reg gb Heather, KayleeGiuseppeDiana, Senior Asic Engineer Unit ml3 Ariane Garvey,RT RT nk1 Tashia Wagner, OSTEOPATHIC RESIDENT OSTEOPATHIC RESIDENT Chester Salazar RN RN ml6 Shirley Coelho, PULP GRINDER PULP GRINDER Patricia Vanegas RN RN mlc Ogden, Kari, RN RN ko2 Hook, Sandra slh Nichols, Crystal, PULP GRINDER PULP GRINDER Katie Shah Chart Complete MTDD
[2016-07-19] MEDS ORDERED: POTASSIUM CHLORIDE 10 MEQ SR TABLET PO ONE (18:30)
[2016-07-19 19:05] LABS: MEAN CORPUSCULAR HEMOGLOBIN 30.8 pg (27.0-33.0); MEAN CORPUSCULAR HGB CONC 32.9 g/dl (32.0-36.5); MEAN CORPUSCULAR VOLUME 93.4 fl (80.0-96.0)
[2016-07-19] MEDS ORDERED: NS 750 ML IV SCH (19:30)
--- NOTE | 2016-07-19 19:47 | IPN ---
DATE: 07/19/2016 Ms. Delacruz is feeling well today. She is not having any complaints of pain, chest pain. Her shortness of breath is improving. She is not yet to baseline. She has noted no bloody bowel movements, in fact she has noted no bowel movements. Unfortunately this evening she had a choking episode and feels as though there may be some food stuck in her esophagus. Temperature is 97, pulse 90, respiratory rate 18, blood pressure 162/62. 94% on 2 liters. Intake and output notable for a positive fluid balance of 580. She is awake appropriately interactive. Pleasantly conversant. Mucous membranes are moist. Breathing symmetrical. I to E ratio is 1 to 4. Diminished aeration throughout. Some of her airway sounds are noted, no wheezes. Abdomen soft, doughy, and nontender. White cell count 16, hemoglobin 9.2, platelets 328, sodium 141, potassium 3.4, chloride 97, bicarbonate 34, BUN 67, creatinine 2.02, c-reactive protein 134. My assessment is as follows: This is a 75-year-old with multiple medical issues admitted mainly for chronic obstructive pulmonary disease (COPD) exacerbation. Found to have symptomatic anemia with suspected GI blood loss in the setting of supratherapeutic INR. Plan is as follows: 1. Respiratory. The patient has COPD exacerbation with known congestive heart failure (CHF) and diastolic dysfunction. Renal function is declining. At this point we will hold her Lasix and get a small amount of fluid and monitor her clinically on telemetry. She does have some evidence of malleolus clearance secretions. 2. The patient has suspected acute blood loss anemia in the setting of subtherapeutic INR. INR has been normalized. She is off anticoagulation at this point. Hemoglobin and hematocrit are improving or stable. The patient has congestive heart failure with diastolic dysfunction, grade 1 conserved left ventricular ejection fraction. 3. The patient has obesity, which complicates care. 4. The patient has a history of pulmonary embolism. Currently off Coumadin. 5. Deep vein thrombosis (DVT) prophylaxis in the form of twice daily subcutaneous heparin.
--- NOTE | 2016-07-19 20:20 | REPUSA ---
CLINICAL HISTORY: Food stuck in throat. TECHNIQUE: Multiple axial CT images were obtained through chest without IV contrast material. COMPARISON: Made with prior study dated 07/17/2016. COMMENTS: There is an upper lobe predominant centrilobular emphysema is again seen. Atelectasis is again seen in the left lower lobe. Scarring is seen in the right middle lobe of the lingula in both lung bases. The esophagus appears distended and contains undigested debris. This is new since the prior study and may represent motility dysfunction and/or achalasia. Clinical correlation is recommended. Consi pamella further evaluation with video esophagram. There is no evidence of pleural or parenchymal-based mass. There are no pleural effusions. There is no evidence of hilar or mediastinal lymphadenopathy. The heart and great vessels are within normal limits. The visualized portions of the liver are of uniform attenuation without mass or defect. There is no intra or extrahepatic biliary ductal dilatation. The spleen is unremarkable. The visualized pancrea s is of normal contour and attenuation characteristics. There is no evidence of adrenal mass. The v isualized portions of the kidneys present no abnormalities. The bony structures are free of lytic or blastic lesions. Multilevel degenerative changes are seen i nvolving the thoracic spine. Scattered calcifications are seen involving the aorta and visualized [place] or branches compatible with atherosclerosis. IMPRESSION: Upper lobe predominant centrilobular emphysema is again seen. The esophagus appears distended and contains undigested debris. This is new since the prior study an d may represent motility dysfunction and/or achalasia. Clinical correlation is recommended. Conside r further evaluation with video esophagram. Thank you for your kind referral of this patient. We appreciate the opportunity to participate in is patient's care.
[2016-07-19] MEDS: traZODone 100 MG TAB PO SCH (20:27)
[2016-07-19] MEDS: LORATADINE 10 MG TAB PO SCH (20:27)
[2016-07-19] MEDS: ATORVASTATIN 20 MG TAB PO SCH (20:27)
[2016-07-19] MEDS: LevoFLOXacin IV 500 MG in APPROPRIATE DILUENT 1 EA IV SCH (20:33)
[2016-07-19] MEDS: FLUTICASONE PROP 0.05% NASAL SPRAY 16 GM (FLONASE) SCH (20:34)
[2016-07-19] MEDS ORDERED: PROPOFOL 200 MG/20 ML VIAL As Ordered ONE (21:04)
[2016-07-19] MEDS ORDERED: fentaNYL 100 MCG/2 ML INJECTION (J3010) As Ordered ONE (21:04)
[2016-07-19] MEDS ORDERED: LIDOCAINE 2% INJ 100 MG/5 ML SDV (FOR ANES.) As Ordered ONE (21:04)
[2016-07-19] MEDS ORDERED: ETOMIDATE INJ 20MG/10ML VIAL As Ordered ONE (21:04)
[2016-07-19] MEDS ORDERED: MIDAZOLAM INJ 2 MG/2 ML VIAL (J2250) As Ordered ONE (21:04)
[2016-07-19] MEDS ORDERED: SUCCINYLCHOLINE 100 MG/5 ML SYRINGE (J0330) As Ordered ONE (21:04)
[2016-07-19] MEDS ORDERED: ONDANSETRON 4MG/2ML VIAL (J2405) As Ordered ONE (21:27)
[2016-07-19] MEDS ORDERED: ONDANSETRON 4MG/2ML VIAL (J2405) IV PRN (22:30)
[2016-07-19] MEDS ORDERED: LR 1,000 ML IV SCH (22:30)
[2016-07-19] MEDS ORDERED: fentaNYL 100 MCG/2 ML INJECTION (J3010) IV PRN (22:30)
[2016-07-19 23:42] LABS: ABG BASE EXCESS 7.1 (-2.0-2.0); ABG HCO3 32.3 MEQ/L (22.0-26.0); ABG PARTIAL PRESSURE CO2 49.6 mmHg (35.0-45.0); ABG PARTIAL PRESSURE O2 87.6 mmHg (75.0-100.0); ABG TOTAL CO2 33.8 MEQ/L (23.0-31.0); ABG pH (ARTERIAL) 7.431 UNITS (7.350-7.450)
[2016-07-20] VITALS (8 sets, daily range): BP systolic 128–154; BP diastolic 64–71
[2016-07-20] MEDS: IPRATROPIUM 0.5MG/ALBUTEROL 2.5MG INH SOL UD 3ML (DUONEB)(J7620) NEB SCH ×4 (02:00→20:00)
[2016-07-20] MEDS: SLF 3 ML SYR IV SCH ×4 (03:25→20:33)
[2016-07-20 06:01] LABS: INR 1.13
[2016-07-20 06:05] LABS: CALCIUM LEVEL 7.7 MG/DL (8.8-10.2); CREATININE FOR GFR 1.84 MG/DL (0.55-1.02); GLOMERULAR FILTRATION RATE 28.3 (>39); MAGNESIUM LEVEL 2.1 MG/DL (1.8-2.4); POTASSIUM SERUM 3.7 MEQ/L (3.5-5.1)
[2016-07-20 06:10] LABS: MEAN CORPUSCULAR HEMOGLOBIN 30.6 pg (27.0-33.0); MEAN CORPUSCULAR HGB CONC 33.2 g/dl (32.0-36.5); RED CELL DISTRIBUTION WIDTH 16.4 % (11.5-14.5); WHITE BLOOD COUNT 10.9 K/mm3 (4.0-10.0)
[2016-07-20] MEDS: TIOTROPIUM INHALER/CAPSULE (SPIRIVA) INH SCH (07:17)
[2016-07-20] MEDS: SYMBICORT 160/4.5MCG INHALER 6GM INH SCH ×2 (07:17→20:55)
--- NOTE | 2016-07-20 07:43 | IPNPDOC ---
Assessment/Plan Date Seen The patient was seen on 07/20/16. Problems Problems: (1) Food impaction of esophagus Status: Acute Discussed With: Sourcer, Patient Problem Specific Plan: Consult Specialist, Monitor Clinically Problem Text: S/P upper endoscopy. Appears to have resolved. Tolerating full liquid diet. Discuss further with GI, assistance appreciated. (2) Supratherapeutic INR Status: Resolved Response to Treatment: Stable Discussed With: Patient Problem Specific Plan: Monitor Clinically, Repeat Labs Problem Text: Resolved. Will resume oral anticoagulant in 24-48 hours. Hemorrhagic disorder due to extrinsic circulating anticoagulant (warfarin) s/p vitamin K and transfusion PRBC. (3) CHF (congestive heart failure) Status: Chronic Response to Treatment: Compensated Discussed With: Patient Problem Specific Plan: Monitor Clinically Problem Text: diastolic dysfunction lasix on hold secondary to gabe likely resume in 24 hours (4) Pulmonary embolism Status: Chronic Discussed With: Patient Problem Text: Coumadin on hold. Will resume VKA in 24-48 hours. Patient is also s/p IVC filter. (5) Depression Status: Chronic Discussed With: Patient Problem Specific Plan: Monitor Clinically Problem Text: anxiety/depression as per medical records. Continue Prozac. (6) Obesity Status: Chronic Discussed With: Patient Problem Specific Plan: Monitor Clinically Problem Text: Further complicating factor to her medical care. (7) Chronic respiratory failure with hypoxia Status: Chronic Discussed With: Patient Problem Specific Plan: Monitor Clinically Problem Text: Still with productive cough. Sputum cultures noted. Continue Levaquin. Supplemental oxygen as per her baseline. Continue mucolytics, supplemental oxygen, respiratory regimen. (8) Iron deficiency Status: Chronic Discussed With: Patient Problem Specific Plan: Monitor Clinically Problem Text: Continue oral iron supplementation. (9) HTN (hypertension) Status: Chronic Response to Treatment: Controlled Discussed With: Patient Problem Specific Plan: Monitor Clinically Problem Text: Continue norvasc. Plan / VTE VTE Prophylaxis Ordered?: Yes Plan Diet: Continue Current, Advance (advance as per GI) Activity: Advance Therapy: PT Respiratory: Wean Oxygen Diagnostics: Repeat Labs in AM Anticipated Discharge: Home, Home With Services Plan Text Advance diet as per GI. Ambulate. PT eval/treat. Subjective Review of Systems CC/HPI The patient is a 75-year-old female admitted with a reason for visit of Copd Exacerbation;Sob. General: Denies: Chills, Fatigue, Malaise, Night Sweats, Normal Appetite, Other Symptoms, ROS Unobtainable Constitutional: Denies: Chills, Fatigue, Fever, Lethargy, Malaise, Night Sweats , Other, Weakness, Weight Loss Eyes: Denies: Conjunctivae inflammation, Eyelid inflammation, Other, Pain, Redness, Vision change ENT: Denies: Dysphagia, Ear Pain, Epistaxis, Head Aches, Other Symptoms, Post Nasal Drip, Sinus Congestion, Sore Throat Skin: Denies: Breakdown, Bruising, Dry, Itching, Jaundice, Lesions, Nail Changes, Other, Rash Pulmonary: Reports: Cough Cardiovascular: Denies: Chest Pain, Edema, Lt Headedness, Orthopnea, Other Symptoms, Palpitations, Paroxysmal Noc. Dyspnea Gastrointestinal: Denies: Abdominal Pain, Constipation, Diarrhea, Hematochezia , Melena, Nausea, Other Symptoms, Vomiting Genitourinary: Denies: Dysuria, Frequency, Hematuria, Incontinence, Other Symptoms, Retention Objective Physical Examination General Exam: Positive: Alert, Cooperative, No Acute Distress Eye Exam: Positive: Conjunctiva & lids normal, EOMI, PERRLA ENT Exam: Positive: Atraumatic, Mucous membr. moist/pink Neck Exam: Positive: Supple Chest Exam: Positive: Rhonchi Heart Exam: Positive: Rate Normal, Regular Rhythm Telemetry: Positive: No significant arrhythmia Abdomen Exam: Positive: Normal bowel sounds, Soft, Negative: Tenderness Extremity Exam: Positive: Edema Psych Exam: Positive: Mental status NL, Oriented x 3 Vital Signs/I&O Vital Signs Date Time Temp Pulse Resp B/P Pulse Ox O2 Delivery O2 Flow Rate FiO2 07/20/16 03:00 97.4 69 20 146/70 90 Nasal Cannula 2.0 I&O- Last 24 Hours up to 6 AM 07/20/16 06:00 Intake Total 1155 ml Output Total 300 ml Balance 855 ml Laboratory Data Labs 24H Laboratory Tests 2 07/19/16 23:32: Arterial Blood pH 7.431, Arterial Blood Partial Pressure CO2 49.6H, Arterial Blood Partial Pressure O2 87.6, Arterial Blood Total CO2 33.8H, Arterial Blood HCO3 32.3H, Arterial Blood Base Excess 7.1H, Arterial Blood Oxygen Saturation 96.2, Blood Gas Bicarbonate Standard 31.0H 07/20/16 05:41: Anion Gap 8, C-Reactive Protein, Quantitative 0.89H, Blood Urea Nitrogen 53H, Creatinine 1.84H, Sodium Level 141, Potassium Level 3.7, Chloride Level 101, Carbon Dioxide Level 32, Calcium Level 7.7L, Glomerular Filtration Rate 28.3L, Magnesium Level 2.1, Prothromb Time International Ratio 1.13, Prothrombin Time 14.6H CBC/BMP Laboratory Tests 07/19/16 18:48 Red Blood Count 2.99 L, Mean Corpuscular Volume 93.4, Mean Corpuscular Hemoglobin 30.8, Mean Corpuscular Hemoglobin Concent 32.9, Red Cell Distribution Width 16.0 H 07/20/16 05:40 Red Blood Count 2.51 L, Mean Corpuscular Volume 92.0, Mean Corpuscular Hemoglobin 30.6, Mean Corpuscular Hemoglobin Concent 33.2, Red Cell Distribution Width 16.4 H 07/20/16 05:41 Calcium Level 7.7 L Microbiology Microbiology 07/17/16 Blood Culture - Preliminary, Resulted No Growth after 72 hours. All specime... 07/16/16 Blood Culture - Preliminary, Resulted No Growth after 72 hours. All specime... 07/17/16 Stool Occult Blood (JAKE) - Final, Complete 07/17/16 Gram Stain - Final, Complete 07/17/16 Sputum Culture - Final, Complete Stenotrophomonas Maltophilia 07/17/16 MRSA Screen - Final, Complete 07/17/16 Respiratory Virus Panel (PCR) (JAKE) - Final, Complete JESI POLO MD Jul 20, 2016 07:42
[2016-07-20] MEDS: PANTOPRAZOLE 40MG INJ (PROTONIX) (C9113) IV SCH (08:26)
[2016-07-20] MEDS: oxyBUTYnin *DITROPAN XL* 5 MG TABCR PO SCH (08:27)
[2016-07-20] MEDS: amLODIPine 10 MG TAB PO SCH (08:27)
[2016-07-20] MEDS: FLUoxetine 20 MG CAP PO SCH (08:27)
[2016-07-20] MEDS: FERROUS SULFATE 325MG TAB PO SCH (08:28)
[2016-07-20] MEDS: guaiFENesin ER 600 MG TAB PO SCH ×2 (08:28→21:00)
[2016-07-20] MEDS: HEPARIN SOD (PORCINE) 5000 UNITS/ML VIAL SQ SCH ×2 (08:28→20:59)
[2016-07-20] MEDS: SENOKOT S TAB PO SCH ×2 (08:28→21:00)
[2016-07-20] MEDS: MIRALAX *UNIT DOSE* 17GM PACKET PO SCH (08:31)
[2016-07-20] MEDS: GABAPENTIN 300 MG CAP PO SCH ×2 (08:31→20:59)
[2016-07-20] MEDS: methylPREDNISolone INJ 125 MG/2 ML VIAL (J2930) IV SCH (12:08)
[2016-07-20] MEDS: ATORVASTATIN 20 MG TAB PO SCH (21:00)
[2016-07-20] MEDS: PANTOPRAZOLE 40MG TAB (PROTONIX) PO SCH (21:00)
[2016-07-20] MEDS: traZODone 100 MG TAB PO SCH (21:00)
[2016-07-20] MEDS: ANEXSIA, NORCO 7.5MG/325MG TABLET(HYDROCODONE/APAP) PO PRN (21:00)
[2016-07-20] MEDS: FLUTICASONE PROP 0.05% NASAL SPRAY 16 GM (FLONASE) SCH (21:02)
[2016-07-20] MEDS: LORATADINE 10 MG TAB PO SCH (21:06)
[2016-07-21] MEDS: IPRATROPIUM 0.5MG/ALBUTEROL 2.5MG INH SOL UD 3ML (DUONEB)(J7620) NEB SCH ×4 (01:26→20:00)
[2016-07-21 04:00] VITALS: BP 145/71
[2016-07-21 05:32] LABS: INR 1.08
[2016-07-21 05:34] LABS: MEAN CORPUSCULAR HEMOGLOBIN 30.2 pg (27.0-33.0); MEAN CORPUSCULAR HGB CONC 32.6 g/dl (32.0-36.5); MEAN CORPUSCULAR VOLUME 92.7 fl (80.0-96.0); RED CELL DISTRIBUTION WIDTH 16.9 % (11.5-14.5); WHITE BLOOD COUNT 11.3 K/mm3 (4.0-10.0)
[2016-07-21 05:48] LABS: ANION GAP 4 MEQ/L (8-16); BLOOD UREA NITROGEN 47 MG/DL (7-18); CALCIUM LEVEL 8.3 MG/DL (8.8-10.2); CARBON DIOXIDE LEVEL 38 MEQ/L (21-32); CHLORIDE LEVEL 101 MEQ/L (98-107); CREATININE FOR GFR 1.84 MG/DL (0.55-1.02); GLOMERULAR FILTRATION RATE 28.3 (>39); GLUCOSE, FASTING 186 MG/DL (83-110); MAGNESIUM LEVEL 2.2 MG/DL (1.8-2.4); POTASSIUM SERUM 3.7 MEQ/L (3.5-5.1); SODIUM LEVEL 143 MEQ/L (136-145)
[2016-07-21] MEDS: TIOTROPIUM INHALER/CAPSULE (SPIRIVA) INH SCH (07:25)
[2016-07-21] MEDS: SYMBICORT 160/4.5MCG INHALER 6GM INH SCH ×2 (07:25→21:16)
[2016-07-21 07:30] VITALS: BP 142/65
[2016-07-21] MEDS: GABAPENTIN 300 MG CAP PO SCH ×2 (08:31→21:42)
[2016-07-21] MEDS: predniSONE 20 MG TAB PO SCH (08:31)
[2016-07-21] MEDS: amLODIPine 10 MG TAB PO SCH (08:31)
[2016-07-21] MEDS: oxyBUTYnin *DITROPAN XL* 5 MG TABCR PO SCH (08:31)
[2016-07-21] MEDS: SENOKOT S TAB PO SCH ×2 (08:32→21:42)
[2016-07-21] MEDS: FUROSEMIDE 80 MG TAB PO SCH (08:32)
[2016-07-21] MEDS: FERROUS SULFATE 325MG TAB PO SCH (08:32)
[2016-07-21] MEDS: PANTOPRAZOLE 40MG TAB (PROTONIX) PO SCH ×2 (08:32→21:42)
[2016-07-21] MEDS: FLUoxetine 20 MG CAP PO SCH (08:32)
[2016-07-21] MEDS: HEPARIN SOD (PORCINE) 5000 UNITS/ML VIAL SQ SCH ×2 (08:32→21:41)
[2016-07-21] MEDS: guaiFENesin ER 600 MG TAB PO SCH ×2 (08:33→21:42)
[2016-07-21] MEDS: MIRALAX *UNIT DOSE* 17GM PACKET PO SCH (08:37)
--- NOTE | 2016-07-21 10:06 | ROOR ---
Patient Name: Isidra Delacruz Procedure Date: 07/19/2016 8:53 PM Date of : 1940 Age: 75 Gender: Female Note Status: Finalized Procedure: Upper GI endoscopy Indications: Foreign body in the esophagus, Abnormal CT of the GI tract Providers: Bon Villalba MD Referring MD: Patricio Dc MD Requesting Provider: Medicines: General Anesthesia Complications: No immediate complications. Procedure: Pre-Anesthesia Assessment: - The heart rate, respiratory rate, oxygen saturations, blood pressure, adequacy of pulmonary ventilation, and response to care were monitored throughout the procedure. The Endoscope was introduced through the mouth, and advanced to the second part of duodenum. The upper GI endoscopy was accomplished without difficulty. The patient tolerated the procedure well. Findings: Food was found in the entire esophagus. Removal of food was accomplished. No other significant abnormalities were identified in a careful examination of the stomach. The exam of the duodenum was otherwise normal. Impression: - Food in the esophagus. Removal was successful. - The examination was otherwise normal. Recommendation: - Return patient to hospital pa for ongoing care. - The findings and recommendations were discussed with the referring physician. - The findings and recommendations were discussed with the patient's family. - The findings and recommendations were discussed with the patient. Bon Villalba MD Bon Villalba MD 07/21/2016 10:06:06 AM This report has been signed electronically. Number of Addenda: 0 Note Initiated On: 07/19/2016 8:53 PM Estimated Blood Loss: Estimated blood loss: none.
[2016-07-21 10:44] LABS: ALBUMIN 2.8 GM/DL (3.2-5.2); ALBUMIN/GLOBULIN RATIO 1.08 (1.00-1.93); ALKALINE PHOSPHATASE 47 U/L (45-117); ALT/SGPT 23 U/L (12-78); AST/SGOT 22 U/L (15-37); BILIRUBIN,DIRECT < 0.1 MG/DL (0.0-0.2); BILIRUBIN,TOTAL 0.5 MG/DL (0.2-1.0); TOTAL PROTEIN 5.4 GM/DL (6.4-8.2)
[2016-07-21 12:00] VITALS: BP 129/62
[2016-07-21] MEDS: SLF 3 ML SYR IV SCH ×2 (14:00→22:52)
--- NOTE | 2016-07-21 14:29 | IPNPDOC ---
Subjective General Date Seen The patient was seen on 07/21/16. Chief Complaint/HPI The patient is a 75-year-old female admitted with a reason for visit of Copd Exacerbation;Sob. Subjective General: Denies: Chills, Fatigue, Malaise, Night Sweats, Normal Appetite, Other Symptoms, ROS Unobtainable Constitutional: Denies: Chills, Fatigue, Fever, Lethargy, Malaise, Night Sweats , Other, Weakness, Weight Loss Eyes: Denies: Conjunctivae inflammation, Eyelid inflammation, Other, Pain, Redness, Vision change ENT: Denies: Dysphagia, Ear Pain, Epistaxis, Head Aches, Other Symptoms, Post Nasal Drip, Sinus Congestion, Sore Throat Skin: Denies: Breakdown, Bruising, Dry, Itching, Jaundice, Lesions, Nail Changes, Other, Rash Pulmonary: Denies: Cough, Dyspnea, Other Symptoms, Pleuritic Chest Pain Cardiovascular: Denies: Chest Pain, Edema, Lt Headedness, Orthopnea, Other Symptoms, Palpitations, Paroxysmal Noc. Dyspnea Gastrointestinal: Reports: Abdominal Pain, Denies: Constipation, Diarrhea, Hematochezia, Melena, Nausea, Other Symptoms , Vomiting Objective Physical Examination General Exam: Positive: Alert, Cooperative, No Acute Distress Eye Exam: Positive: Conjunctiva & lids normal, EOMI, PERRLA ENT Exam: Positive: Atraumatic, Mucous membr. moist/pink Neck Exam: Positive: Supple Chest Exam: Positive: Rhonchi Heart Exam: Positive: Rate Normal, Regular Rhythm Telemetry: Positive: No significant arrhythmia Abdomen Exam: Positive: Normal bowel sounds, Soft, Tenderness Extremity Exam: Positive: Edema Psych Exam: Positive: Mental status NL, Oriented x 3 Assessment /Plan Problems Problems: (1) Food impaction of esophagus Status: Acute Discussed With: Strategies Analyst, Patient Problem Specific Plan: Consult Specialist, Monitor Clinically Problem Text: S/P upper endoscopy. Diet advanced to soft food yesterday. Recurrence of abdominal pain. Have reverted back to full liquid. Upper GI series for tomorrow am. Gallbladder US for this afternoon. Discussed with GI, assistance appreciated. (2) Supratherapeutic INR Status: Resolved Response to Treatment: Stable Discussed With: Patient Problem Specific Plan: Monitor Clinically, Repeat Labs Problem Text: Resuming coumadin today. Hemorrhagic disorder due to extrinsic circulating anticoagulant (warfarin) s/p vitamin K and transfusion PRBC. (3) CHF (congestive heart failure) Status: Chronic Response to Treatment: Compensated Discussed With: Patient Problem Specific Plan: Monitor Clinically Problem Text: diastolic dysfunction resume lasix (4) Pulmonary embolism Status: Chronic Discussed With: Patient Problem Text: Have resumed her VKA. Patient is also s/p IVC filter. (5) Depression Status: Chronic Discussed With: Patient Problem Specific Plan: Monitor Clinically Problem Text: anxiety/depression as per medical records. Continue Prozac. (6) Obesity Status: Chronic Discussed With: Patient Problem Specific Plan: Monitor Clinically Problem Text: Further complicating factor to her medical care. (7) Chronic respiratory failure with hypoxia Status: Chronic Discussed With: Patient Problem Specific Plan: Monitor Clinically Problem Text: Still with productive cough. Sputum cultures noted. Continue Levaquin, has only received one dose as per renal dosing. Supplemental oxygen as per her baseline. Continue mucolytics, supplemental oxygen, respiratory regimen. (8) Iron deficiency Status: Chronic Discussed With: Patient Problem Specific Plan: Monitor Clinically Problem Text: Continue oral iron supplementation. (9) HTN (hypertension) Status: Chronic Response to Treatment: Controlled Discussed With: Patient Problem Specific Plan: Monitor Clinically Problem Text: Continue norvasc. Plan/VTE VTE Prophylaxis Ordered?: Yes (Heparin SC - resuming coumadin) Plan Diet: Advance (reverted to full liquids) Activity: Advance Therapy: PT Medications: Taper Steroids Respiratory: Wean Oxygen Diagnostics: Repeat Labs in AM, Ultrasound, Other Diagnostics Anticipated Discharge: Home, Home With Services Discussed with GI. Plan for GB US today, upper GI series tomorrow. Reverted to full liquid diet. VS, I&O, [facility] Vital Signs/I&O Vital Signs Date Time Temp Pulse Resp B/P Pulse Ox O2 Delivery O2 Flow Rate FiO2 07/21/16 12:00 97.5 69 22 129/62 92 Nasal Cannula 2.0 I&O- Last 24 Hours up to 6 AM 07/21/16 05:59 Intake Total 1740 ml Output Total 950 ml Balance 790 ml Laboratory Data 24H LABS Laboratory Tests 2 07/21/16 05:14: Aspartate Amino Transf (AST/SGOT) 22, Alanine Aminotransferase (ALT/SGPT) 23, Alkaline Phosphatase 47, Total Bilirubin 0.5, Direct Bilirubin < 0.1, Albumin 2.8L, Albumin/Globulin Ratio 1.08, Anion Gap 4L, Calcium Level 8.3L, Glomerular Filtration Rate 28.3L, Magnesium Level 2.2, Prothromb Time International Ratio 1.08, Prothrombin Time 14.1, Total Protein 5.4L CBC/BMP Laboratory Tests 07/21/16 05:14 Red Blood Count 2.55 L, Mean Corpuscular Volume 92.7, Mean Corpuscular Hemoglobin 30.2, Mean Corpuscular Hemoglobin Concent 32.6, Red Cell Distribution Width 16.9 H Microbiology Microbiology 07/17/16 Blood Culture - Preliminary, Resulted No Growth after 72 hours. All specime... 07/16/16 Blood Culture - Preliminary, Resulted No Growth after 72 hours. All specime... 07/17/16 Stool Occult Blood (JAKE) - Final, Complete 07/17/16 Gram Stain - Final, Complete 07/17/16 Sputum Culture - Final, Complete Stenotrophomonas Maltophilia 07/17/16 MRSA Screen - Final, Complete 07/17/16 Respiratory Virus Panel (PCR) (JAKE) - Final, Complete JESI POLO MD Jul 21, 2016 14:29
[2016-07-21 16:00] VITALS: BP 134/68
[2016-07-21] MEDS: ANEXSIA, NORCO 7.5MG/325MG TABLET(HYDROCODONE/APAP) PO PRN (16:14)
--- NOTE | 2016-07-21 16:14 | REP ---
Abdominal right upper quadrant ultrasound: There is diffuse tenderness to transducer pressure. There is no cholelithiasis, gallbladder wall thickening or pericholecystic fluid. There is no intrahepatic or extrahepatic biliary duct dilatation, the common duct measures 3.6 mm diameter. The hepatic parenchyma is homogeneous and unremarkable. Visualized portion of the pancreatic head is unremarkable. The body and tail of the pancreas are obscured by bowel. There is no right renal hydronephrosis, calculus, mass or cyst. The right kidney is normal size measuring 11.2 cm craniocaudad length. There is no free fluid in the visualized portion of the right upper quadrant. Impression: Essentially negative abdominal right upper quadrant ultrasound. Signed by Juvenal Dorantes MD 07/21/2016 04:05 P
[2016-07-21] MEDS: WARFARIN SOD 2.5 MG TAB PO SCH (16:15)
[2016-07-21 20:04] VITALS: BP 143/63
[2016-07-21] MEDS: traZODone 100 MG TAB PO SCH (21:42)
[2016-07-21] MEDS: ATORVASTATIN 20 MG TAB PO SCH (21:42)
[2016-07-21] MEDS: LORATADINE 10 MG TAB PO SCH (21:42)
[2016-07-21] MEDS: FLUTICASONE PROP 0.05% NASAL SPRAY 16 GM (FLONASE) SCH (21:44)
[2016-07-21] MEDS: LevoFLOXacin IV 500 MG in APPROPRIATE DILUENT 1 EA IV SCH (22:52)
[2016-07-22 00:15] VITALS: BP 128/61
--- NOTE | 2016-07-22 00:33 | CR ---
DATE OF CONSULTATION: 07/21/2016 This is a 75-year-old white female who is admitted to [facility] ([facility]) for multiple medical problems including anxiety, history of bilateral breast cancer, advanced COPD on two liters of oxygen to home on chronic warfarin therapy for history of pulmonary emboli. She also has an inferior vena cava filter, depression, chronic kidney disease, reflux, congestive heart failure. The patient apparently was admitted on 07/17/2016, for increasing cough and shortness of breath. The patient has been treated since admission for her shortness of breath and COPD. She has had a fairly good response. ALLERGIES: She is allergic to AMOXICILLIN, LISINOPRIL, OXYCODONE, PENICILLIN, SULFA DRUGS, and TEMAZEPAM. PAST MEDICAL HISTORY: As above. The patient has a previous history of an overdose and suicide attempts. PAST SURGICAL HISTORY: 1. Bilateral mastectomy. 2. Tubal ligation. 3. Ankle arthroplasty. 4. Left shoulder arthroplasty. 5. History of IVC filter. SOCIAL HISTORY: The patient denies alcohol abuse, cigarettes. The patient quit five years ago; use to smoke two packs a day for 50 years. FAMILY HISTORY: Noncontributory. REVIEW OF SYSTEMS: Negative. MEDICATIONS: Include Kingsley, Ventolin inhaler, DuoNebs, Alendronate, Norvasc, aspirin, calcium, Ceftin, Flonase, Iron, fluoxetine, Lasix, Neurontin, Claritin, nystatin, oxybutynin, Protonix, MiraLAX, prednisone, Zocor, Spiriva, trazodone and Coumadin. PHYSICAL EXAMINATION: GENERAL: A well-developed, well-nourished white female in no apparent distress and appears stated age. Chest was clear to auscultation. Cardiovascular exam showed an irregular rhythm with a 2/6 systolic ejection murmur. The patient is in atrial fibrillation. Abdomen: Soft, nontender, no masses, guarding, rebound, or splenomegaly. Bowel sounds positive. CT chest on admission did show mild left segmental atelectasis of her left lower lobe. ANALYSIS: The patient is being seen for acute dysphagia. The patient had CT of the chest on 07/21 which showed dilated esophagus with the esophagus being filled with food. PLAN: Immediately bring the patient to the main OR and perform upper endoscopy to assess what appears to be esophageal food impaction. [facility]
[2016-07-22] MEDS: IPRATROPIUM 0.5MG/ALBUTEROL 2.5MG INH SOL UD 3ML (DUONEB)(J7620) NEB SCH ×4 (02:34→20:00)
[2016-07-22 03:27] VITALS: BP 129/62
[2016-07-22] MEDS: SLF 3 ML SYR IV SCH ×3 (05:20→21:08)
[2016-07-22 05:30] LABS: MEAN CORPUSCULAR HEMOGLOBIN 30.5 pg (27.0-33.0); MEAN CORPUSCULAR HGB CONC 32.3 g/dl (32.0-36.5); MEAN CORPUSCULAR VOLUME 94.3 fl (80.0-96.0); RED CELL DISTRIBUTION WIDTH 17.6 % (11.5-14.5)
[2016-07-22 05:40] LABS: CALCIUM LEVEL 8.1 MG/DL (8.8-10.2); CREATININE FOR GFR 1.66 MG/DL (0.55-1.02); GLOMERULAR FILTRATION RATE 31.9 (>39); POTASSIUM SERUM 3.6 MEQ/L (3.5-5.1)
[2016-07-22 05:54] LABS: INR 1.08
[2016-07-22 07:30] VITALS: BP 135/64
[2016-07-22] MEDS: TIOTROPIUM INHALER/CAPSULE (SPIRIVA) INH SCH (07:47)
[2016-07-22] MEDS: SYMBICORT 160/4.5MCG INHALER 6GM INH SCH ×2 (07:48→19:39)
--- NOTE | 2016-07-22 08:48 | IPNPDOC ---
Subjective General Date Seen The patient was seen on 07/22/16. Subjective Chief Complaint/HPI The patient is a 75-year-old female admitted with a reason for visit of Copd Exacerbation;Sob. General: Denies: Chills, Fatigue, Malaise, Night Sweats, Normal Appetite, Other Symptoms, ROS Unobtainable Constitutional: Denies: Chills, Fatigue, Fever, Lethargy, Malaise, Night Sweats , Other, Weakness, Weight Loss Eyes: Denies: Conjunctivae inflammation, Eyelid inflammation, Other, Pain, Redness, Vision change ENT: Denies: Dysphagia, Ear Pain, Epistaxis, Head Aches, Other Symptoms, Post Nasal Drip, Sinus Congestion, Sore Throat Skin: Denies: Breakdown, Bruising, Dry, Itching, Jaundice, Lesions, Nail Changes, Other, Rash Pulmonary: Reports: Cough, Denies: Dyspnea, Other Symptoms, Pleuritic Chest Pain Cardiovascular: Denies: Chest Pain, Edema, Lt Headedness, Orthopnea, Other Symptoms, Palpitations, Paroxysmal Noc. Dyspnea Gastrointestinal: Denies: Abdominal Pain, Constipation, Diarrhea, Hematochezia , Melena, Nausea, Other Symptoms, Vomiting Objective Physical Examination General Exam: Positive: Alert, Cooperative, No Acute Distress Eye Exam: Positive: Conjunctiva & lids normal, EOMI, PERRLA ENT Exam: Positive: Atraumatic, Mucous membr. moist/pink Neck Exam: Positive: Supple Chest Exam: Positive: Rhonchi Heart Exam: Positive: Rate Normal, Regular Rhythm Telemetry: Positive: No significant arrhythmia Abdomen Exam: Positive: Normal bowel sounds, Soft, Tenderness Extremity Exam: Positive: Edema Psych Exam: Positive: Mental status NL, Oriented x 3 Assessment /Plan Problems Problems: (1) Food impaction of esophagus Status: Resolved Discussed With: It Project Coordinator, Patient Problem Specific Plan: Consult Specialist, Monitor Clinically Problem Text: S/P upper endoscopy. Feeling better back on full liquid diet. Abdominal pain/tenderness much improved. Gallbladder US unremarkable. Upper GI series today. Discussed with GI, assistance appreciated. (2) Supratherapeutic INR Status: Resolved Response to Treatment: Stable Discussed With: Patient Problem Specific Plan: Monitor Clinically, Repeat Labs Problem Text: Resumed coumadin. Hemorrhagic disorder due to extrinsic circulating anticoagulant (warfarin) s/p vitamin K and transfusion PRBC. (3) CHF (congestive heart failure) Status: Chronic Response to Treatment: Compensated Discussed With: Patient Problem Specific Plan: Monitor Clinically Problem Text: diastolic dysfunction compensated continue with lasix (4) Pulmonary embolism Status: Chronic Discussed With: Patient Problem Text: Have resumed her VKA. Patient is also s/p IVC filter. (5) Depression Status: Chronic Discussed With: Patient Problem Specific Plan: Monitor Clinically Problem Text: anxiety/depression as per medical records. Continue Prozac. (6) Obesity Status: Chronic Discussed With: Patient Problem Specific Plan: Monitor Clinically Problem Text: Further complicating factor to her medical care. (7) Chronic respiratory failure with hypoxia Status: Chronic Discussed With: Patient Problem Specific Plan: Monitor Clinically Problem Text: Still with productive cough. Sputum cultures noted. Continue Levaquin, has only received one dose as per renal dosing. Supplemental oxygen as per her baseline. Continue mucolytics, supplemental oxygen, respiratory regimen. (8) Iron deficiency Status: Chronic Discussed With: Patient Problem Specific Plan: Monitor Clinically Problem Text: Continue oral iron supplementation. (9) HTN (hypertension) Status: Chronic Response to Treatment: Controlled Discussed With: Patient Problem Specific Plan: Monitor Clinically Problem Text: Continue norvasc. Plan/VTE VTE Prophylaxis Ordered?: Yes (Heparin SC - resuming coumadin) Plan Diet: Continue Current Activity: Continue Current Therapy: PT Medications: Taper Steroids Respiratory: Wean Oxygen Diagnostics: Repeat Labs in AM, Other Diagnostics Anticipated Discharge: Home, Home With Services VS, I&O, 24H, [facility] Vital Signs/I&O Vital Signs Date Time Temp Pulse Resp B/P Pulse Ox O2 Delivery O2 Flow Rate FiO2 07/22/16 08:01 Nasal Cannula 2.0 07/22/16 07:30 97.5 76 24 135/64 93 I&O- Last 24 Hours up to 6 AM 07/22/16 06:00 Intake Total 1320 ml Output Total 2800 ml Balance -1480 ml Laboratory Data 24H LABS Laboratory Tests 2 07/22/16 05:03: Anion Gap 8, Blood Urea Nitrogen 40H, Creatinine 1.66H, Sodium Level 143, Potassium Level 3.6, Chloride Level 99, Carbon Dioxide Level 36H, Calcium Level 8.1L, Glomerular Filtration Rate 31.9L, Magnesium Level 2.0, Prothromb Time International Ratio 1.08, Prothrombin Time 14.1 CBC/BMP Laboratory Tests 07/22/16 05:03 Calcium Level 8.1 L 07/22/16 05:04 Red Blood Count 2.54 L, Mean Corpuscular Volume 94.3, Mean Corpuscular Hemoglobin 30.5, Mean Corpuscular Hemoglobin Concent 32.3, Red Cell Distribution Width 17.6 H Microbiology Microbiology 07/17/16 Blood Culture - Final, Complete NO GROWTH AFTER 5 DAYS 07/16/16 Blood Culture - Final, Complete NO GROWTH AFTER 5 DAYS 07/17/16 Stool Occult Blood (JAKE) - Final, Complete 07/17/16 Gram Stain - Final, Complete 07/17/16 Sputum Culture - Final, Complete Stenotrophomonas Maltophilia 07/17/16 MRSA Screen - Final, Complete 07/17/16 Respiratory Virus Panel (PCR) (JAKE) - Final, Complete JESI POLO MD Jul 22, 2016 08:48
[2016-07-22] MEDS ORDERED: E-Z-GAS II EFFERVESCENT PACKET (SODIUM BICARB./CITRIC ACID/SIMETHICONE) As Ordered ONE (09:54)
[2016-07-22] MEDS ORDERED: E-Z-HD 98% w/w 340GM SUSP BTL As Ordered ONE (09:55)
[2016-07-22] MEDS ORDERED: E-Z-PAQUE 96% w/w SUSP 176GM BTL As Ordered ONE (09:55)
[2016-07-22] MEDS: HEPARIN SOD (PORCINE) 5000 UNITS/ML VIAL SQ SCH ×2 (11:56→21:08)
[2016-07-22] MEDS: oxyBUTYnin *DITROPAN XL* 5 MG TABCR PO SCH (11:56)
[2016-07-22] MEDS: FUROSEMIDE 80 MG TAB PO SCH (11:57)
[2016-07-22] MEDS: FLUoxetine 20 MG CAP PO SCH (11:57)
[2016-07-22] MEDS: GABAPENTIN 300 MG CAP PO SCH ×2 (11:57→21:07)
[2016-07-22] MEDS: amLODIPine 10 MG TAB PO SCH (11:57)
[2016-07-22] MEDS: predniSONE 20 MG TAB PO SCH (11:58)
[2016-07-22] MEDS: SENOKOT S TAB PO SCH ×2 (11:58→21:07)
[2016-07-22] MEDS: guaiFENesin ER 600 MG TAB PO SCH ×2 (11:58→21:07)
[2016-07-22] MEDS: PANTOPRAZOLE 40MG TAB (PROTONIX) PO SCH ×2 (11:58→21:07)
[2016-07-22 12:00] VITALS: BP 140/67
[2016-07-22] MEDS: FERROUS SULFATE 325MG TAB PO SCH (12:07)
[2016-07-22] MEDS: MIRALAX *UNIT DOSE* 17GM PACKET PO SCH (12:07)
[2016-07-22 16:00] VITALS: BP 145/68
--- NOTE | 2016-07-22 16:57 | REP ---
UPPER GI, AIR CONTRAST: The procedure was performed under the direct supervision of Dr. Velazquez. The images were reviewed with Dr. Velazquez. The folder taper operator film shows no organomegaly or pathological masses. The intestinal gas pattern is nonspecific. There is residual contrast seen in the colon. There are degenerative changes of the spine as well as levoscoliosis. There is an IVC filter identified. Liquid barium and gas-producing granules were given in the erect position as well as liquid barium in the prone oblique position in order to perform a double-contrast upper GI examination. The oral and pharyngeal stage of deglutition are unremarkable. During esophageal transport there are tertiary waves demonstrated which are unchanged from the previous esophagram performed on 06/24/2016. There is no evidence of esophagitis, stricture, mucosal ring, or hiatal hernia. Gastroesophageal reflux is not demonstrated on this examination. The stomach guidry are normally outlined. The rugal folds are smooth and regular. There is no gastritis, neoplasm, or ulcer disease. The duodenal guidry are normally outlined. The mucosal folds are smooth and regular. There is no duodenitis, pancreatitis, peptic ulcer disease, or neoplasm. The visualized portion of the proximal small bowel appears normal in course and caliber. The barium column was followed through the small bowel to the level of the terminal ileum. Small bowel transit time is approximately 45 minutes. During fluoroscopy gentle palpation shows all loops are freely movable and pliable. There are no fixed or angulated loops. The small bowel mucosal pattern is normal in course and caliber. There is no transition to suggest a partial small bowel obstruction. Spot filming of terminal ileum shows it to be unremarkable. IMPRESSION: There is esophageal dysmotility which is unchanged from the previous esophagram dated 06/24/2016. Otherwise double contrast upper GI and small bowel follow through within normal limits. 2 minutes and 57 seconds of fluoroscopic time was utilized for this procedure. Reviewed by EDGARD Garland 07/23/2016 03:39 PEdited and Signed by Roberto Velazquez MD 07/23/2016 04:26 P
[2016-07-22] MEDS: WARFARIN SOD 2.5 MG TAB PO SCH (18:16)
[2016-07-22] MEDS: LORATADINE 10 MG TAB PO SCH (21:07)
[2016-07-22] MEDS: traZODone 100 MG TAB PO SCH (21:07)
[2016-07-22] MEDS: ATORVASTATIN 20 MG TAB PO SCH (21:07)
[2016-07-22] MEDS: FLUTICASONE PROP 0.05% NASAL SPRAY 16 GM (FLONASE) SCH (21:08)
[2016-07-22] MEDS: ANEXSIA, NORCO 7.5MG/325MG TABLET(HYDROCODONE/APAP) PO PRN (21:13)
[2016-07-22 22:00] VITALS: BP 111/55
[2016-07-23] MEDS: IPRATROPIUM 0.5MG/ALBUTEROL 2.5MG INH SOL UD 3ML (DUONEB)(J7620) NEB SCH ×4 (02:00→19:31)
[2016-07-23] MEDS: SLF 3 ML SYR IV SCH ×3 (05:01→21:22)
[2016-07-23 06:00] VITALS: BP 144/70
[2016-07-23 07:12] LABS: MEAN CORPUSCULAR HEMOGLOBIN 31.3 pg (27.0-33.0); MEAN CORPUSCULAR HGB CONC 33.1 g/dl (32.0-36.5); MEAN CORPUSCULAR VOLUME 94.5 fl (80.0-96.0); RED CELL DISTRIBUTION WIDTH 17.4 % (11.5-14.5); WHITE BLOOD COUNT 11.2 K/mm3 (4.0-10.0)
[2016-07-23 07:34] LABS: CALCIUM LEVEL 8.5 MG/DL (8.8-10.2); CREATININE FOR GFR 1.6 MG/DL (0.55-1.02); GLOMERULAR FILTRATION RATE 33.3 (>39); MAGNESIUM LEVEL 2.2 MG/DL (1.8-2.4); POTASSIUM SERUM 3.5 MEQ/L (3.5-5.1)
[2016-07-23] MEDS: SYMBICORT 160/4.5MCG INHALER 6GM INH SCH ×2 (07:39→19:28)
[2016-07-23] MEDS: TIOTROPIUM INHALER/CAPSULE (SPIRIVA) INH SCH (07:39)
[2016-07-23 07:43] LABS: INR 1.22
[2016-07-23] MEDS: HEPARIN SOD (PORCINE) 5000 UNITS/ML VIAL SQ SCH ×2 (09:25→21:21)
[2016-07-23] MEDS: FERROUS SULFATE 325MG TAB PO SCH (09:25)
[2016-07-23] MEDS: SENOKOT S TAB PO SCH ×2 (09:25→21:20)
[2016-07-23] MEDS: FUROSEMIDE 80 MG TAB PO SCH (09:26)
[2016-07-23] MEDS: oxyBUTYnin *DITROPAN XL* 5 MG TABCR PO SCH (09:26)
[2016-07-23] MEDS: FLUoxetine 20 MG CAP PO SCH (09:26)
[2016-07-23] MEDS: PANTOPRAZOLE 40MG TAB (PROTONIX) PO SCH ×2 (09:26→21:20)
[2016-07-23] MEDS: GABAPENTIN 300 MG CAP PO SCH ×2 (09:26→21:20)
[2016-07-23] MEDS: predniSONE 20 MG TAB PO SCH (09:26)
[2016-07-23] MEDS: guaiFENesin ER 600 MG TAB PO SCH ×2 (09:26→21:20)
[2016-07-23] MEDS: amLODIPine 10 MG TAB PO SCH (09:29)
[2016-07-23] MEDS: MIRALAX *UNIT DOSE* 17GM PACKET PO SCH (09:29)
--- NOTE | 2016-07-23 10:22 | IPNPDOC ---
Subjective General Date Seen The patient was seen on 07/23/16. Subjective Chief Complaint/HPI The patient is a 75-year-old female admitted with a reason for visit of Copd Exacerbation;Sob. General: Denies: Chills, Fatigue, Malaise, Night Sweats, Normal Appetite, Other Symptoms, ROS Unobtainable Constitutional: Denies: Chills, Fatigue, Fever, Lethargy, Malaise, Night Sweats , Other, Weakness, Weight Loss Eyes: Denies: Conjunctivae inflammation, Eyelid inflammation, Other, Pain, Redness, Vision change ENT: Denies: Dysphagia, Ear Pain, Epistaxis, Head Aches, Other Symptoms, Post Nasal Drip, Sinus Congestion, Sore Throat Skin: Denies: Breakdown, Bruising, Dry, Itching, Jaundice, Lesions, Nail Changes, Other, Rash Pulmonary: Denies: Cough, Dyspnea, Other Symptoms, Pleuritic Chest Pain Cardiovascular: Denies: Chest Pain, Edema, Lt Headedness, Orthopnea, Other Symptoms, Palpitations, Paroxysmal Noc. Dyspnea Gastrointestinal: Denies: Abdominal Pain, Constipation, Diarrhea, Hematochezia , Melena, Nausea, Other Symptoms, Vomiting Objective Physical Examination General Exam: Positive: Alert, Cooperative, No Acute Distress Eye Exam: Positive: Conjunctiva & lids normal, EOMI, PERRLA ENT Exam: Positive: Atraumatic, Mucous membr. moist/pink Neck Exam: Positive: Supple Chest Exam: Positive: Rhonchi Heart Exam: Positive: Rate Normal, Regular Rhythm Abdomen Exam: Positive: Normal bowel sounds, Soft, Tenderness Extremity Exam: Positive: Edema Psych Exam: Positive: Mental status NL, Oriented x 3 Assessment /Plan Problems Problems: (1) Food impaction of esophagus Status: Resolved Discussed With: Manager People, Patient Problem Specific Plan: Consult Specialist, Monitor Clinically Problem Text: S/P upper endoscopy. Feeling better back on full liquid diet. Will advance to pureed. Abdominal pain/tenderness much improved. Gallbladder US unremarkable. Upper GI series significant for esophageal dysmotility. Discussed with GI, assistance appreciated. (2) Supratherapeutic INR Status: Resolved Response to Treatment: Stable Discussed With: Patient Problem Specific Plan: Monitor Clinically, Repeat Labs Problem Text: Resumed coumadin. Hemorrhagic disorder due to extrinsic circulating anticoagulant (warfarin) s/p vitamin K and transfusion PRBC. (3) CHF (congestive heart failure) Status: Chronic Response to Treatment: Compensated Discussed With: Patient Problem Specific Plan: Monitor Clinically Problem Text: diastolic dysfunction compensated continue with lasix (4) Pulmonary embolism Status: Chronic Discussed With: Patient Problem Text: Have resumed her VKA. Patient is also s/p IVC filter. (5) Depression Status: Chronic Discussed With: Patient Problem Specific Plan: Monitor Clinically Problem Text: anxiety/depression as per medical records. Continue Prozac. (6) Obesity Status: Chronic Discussed With: Patient Problem Specific Plan: Monitor Clinically Problem Text: Further complicating factor to her medical care. (7) Chronic respiratory failure with hypoxia Status: Chronic Discussed With: Patient Problem Specific Plan: Monitor Clinically Problem Text: Still with productive cough. Sputum cultures noted. Continue Levaquin, has only received one dose as per renal dosing. Supplemental oxygen as per her baseline. Continue mucolytics, supplemental oxygen, respiratory regimen. (8) Iron deficiency Status: Chronic Discussed With: Patient Problem Specific Plan: Monitor Clinically Problem Text: Continue oral iron supplementation. (9) HTN (hypertension) Status: Chronic Response to Treatment: Controlled Discussed With: Patient Problem Specific Plan: Monitor Clinically Problem Text: Continue norvasc. Plan/VTE VTE Prophylaxis Ordered?: Yes (Heparin SC - resuming coumadin) Plan Diet: Continue Current Activity: Continue Current Respiratory: Wean Oxygen Diagnostics: Repeat Labs in AM, Other Diagnostics Anticipated Discharge: Home, Home With Services VS, I&O, 24H, [facility] Vital Signs/I&O Vital Signs Date Time Temp Pulse Resp B/P Pulse Ox O2 Delivery O2 Flow Rate FiO2 07/23/16 09:29 72 112/60 07/23/16 06:00 96.7 22 90 Nasal Cannula 2.0 I&O- Last 24 Hours up to 6 AM 07/23/16 05:59 Intake Total 1200 ml Output Total 2100 ml Balance -900 ml Laboratory Data 24H LABS Laboratory Tests 2 07/23/16 06:39: Anion Gap 5L, Blood Urea Nitrogen 35H, Creatinine 1.60H, Sodium Level 143, Potassium Level 3.5, Chloride Level 99, Carbon Dioxide Level 39H, Calcium Level 8.5L, Glomerular Filtration Rate 33.3L, Magnesium Level 2.2, Prothromb Time International Ratio 1.22, Prothrombin Time 15.5H CBC/BMP Laboratory Tests 07/23/16 06:39 Calcium Level 8.5 L, Red Blood Count 2.73 L, Mean Corpuscular Volume 94.5, Mean Corpuscular Hemoglobin 31.3, Mean Corpuscular Hemoglobin Concent 33.1, Red Cell Distribution Width 17.4 H Microbiology Microbiology 07/17/16 Blood Culture - Final, Complete NO GROWTH AFTER 5 DAYS 07/16/16 Blood Culture - Final, Complete NO GROWTH AFTER 5 DAYS 07/17/16 Stool Occult Blood (JAKE) - Final, Complete 07/17/16 Gram Stain - Final, Complete 07/17/16 Sputum Culture - Final, Complete Stenotrophomonas Maltophilia 07/17/16 MRSA Screen - Final, Complete 07/17/16 Respiratory Virus Panel (PCR) (JAKE) - Final, Complete JESI POLO MD Jul 23, 2016 10:22
[2016-07-23 14:00] VITALS: BP 120/58
[2016-07-23] MEDS: WARFARIN SOD 5 MG TAB PO SCH (17:28)
[2016-07-23] MEDS: traZODone 100 MG TAB PO SCH (21:20)
[2016-07-23] MEDS: ATORVASTATIN 20 MG TAB PO SCH (21:20)
[2016-07-23] MEDS: LORATADINE 10 MG TAB PO SCH (21:20)
[2016-07-23] MEDS: LevoFLOXacin IV 500 MG in APPROPRIATE DILUENT 1 EA IV SCH (21:22)
[2016-07-23] MEDS: FLUTICASONE PROP 0.05% NASAL SPRAY 16 GM (FLONASE) SCH (21:22)
[2016-07-23] MEDS: ANEXSIA, NORCO 7.5MG/325MG TABLET(HYDROCODONE/APAP) PO PRN (21:30)
[2016-07-23 22:00] VITALS: BP 127/63
[2016-07-24] MEDS: IPRATROPIUM 0.5MG/ALBUTEROL 2.5MG INH SOL UD 3ML (DUONEB)(J7620) NEB SCH ×4 (01:33→20:00)
[2016-07-24] MEDS: SLF 3 ML SYR IV SCH ×3 (05:05→21:47)
[2016-07-24 06:00] VITALS: BP 138/73
[2016-07-24 06:37] LABS: INR 1.46
[2016-07-24 06:51] LABS: MEAN CORPUSCULAR HEMOGLOBIN 30.7 pg (27.0-33.0); MEAN CORPUSCULAR HGB CONC 32.2 g/dl (32.0-36.5); MEAN CORPUSCULAR VOLUME 95.4 fl (80.0-96.0); RED CELL DISTRIBUTION WIDTH 18.1 % (11.5-14.5); WHITE BLOOD COUNT 10.8 K/mm3 (4.0-10.0)
[2016-07-24 06:56] LABS: CALCIUM LEVEL 8.4 MG/DL (8.8-10.2); CREATININE FOR GFR 1.66 MG/DL (0.55-1.02); GLOMERULAR FILTRATION RATE 31.9 (>39); POTASSIUM SERUM 3.6 MEQ/L (3.5-5.1)
[2016-07-24] MEDS: TIOTROPIUM INHALER/CAPSULE (SPIRIVA) INH SCH (07:26)
[2016-07-24] MEDS: SYMBICORT 160/4.5MCG INHALER 6GM INH SCH ×2 (07:31→20:30)
[2016-07-24] MEDS: HEPARIN SOD (PORCINE) 5000 UNITS/ML VIAL SQ SCH ×2 (09:45→20:07)
[2016-07-24] MEDS: predniSONE 20 MG TAB PO SCH (09:46)
[2016-07-24] MEDS: GABAPENTIN 300 MG CAP PO SCH ×2 (09:46→20:07)
[2016-07-24] MEDS: amLODIPine 10 MG TAB PO SCH (09:46)
[2016-07-24] MEDS: FLUoxetine 20 MG CAP PO SCH (09:46)
[2016-07-24] MEDS: guaiFENesin ER 600 MG TAB PO SCH ×2 (09:46→20:06)
[2016-07-24] MEDS: oxyBUTYnin *DITROPAN XL* 5 MG TABCR PO SCH (09:46)
[2016-07-24] MEDS: SENOKOT S TAB PO SCH ×2 (09:46→20:06)
[2016-07-24] MEDS: MIRALAX *UNIT DOSE* 17GM PACKET PO SCH (09:47)
[2016-07-24] MEDS: FERROUS SULFATE 325MG TAB PO SCH (09:47)
[2016-07-24] MEDS: FUROSEMIDE 80 MG TAB PO SCH (09:47)
[2016-07-24] MEDS: PANTOPRAZOLE 40MG TAB (PROTONIX) PO SCH ×2 (09:47→20:07)
[2016-07-24] MEDS: ANEXSIA, NORCO 7.5MG/325MG TABLET(HYDROCODONE/APAP) PO PRN (11:34)
--- NOTE | 2016-07-24 12:01 | IPNPDOC ---
Subjective General Date Seen The patient was seen on 07/24/16. Subjective Chief Complaint/HPI The patient is a 75-year-old female admitted with a reason for visit of Copd Exacerbation;Sob. General: Denies: Chills, Fatigue, Malaise, Night Sweats, Normal Appetite, Other Symptoms, ROS Unobtainable Constitutional: Denies: Chills, Fatigue, Fever, Lethargy, Malaise, Night Sweats , Other, Weakness, Weight Loss Eyes: Denies: Conjunctivae inflammation, Eyelid inflammation, Other, Pain, Redness, Vision change ENT: Denies: Dysphagia, Ear Pain, Epistaxis, Head Aches, Other Symptoms, Post Nasal Drip, Sinus Congestion, Sore Throat Skin: Denies: Breakdown, Bruising, Dry, Itching, Jaundice, Lesions, Nail Changes, Other, Rash Pulmonary: Reports: Cough, Denies: Dyspnea, Other Symptoms, Pleuritic Chest Pain Cardiovascular: Denies: Chest Pain, Edema, Lt Headedness, Orthopnea, Other Symptoms, Palpitations, Paroxysmal Noc. Dyspnea Gastrointestinal: Denies: Abdominal Pain, Constipation, Diarrhea, Hematochezia , Melena, Nausea, Other Symptoms, Vomiting Objective Physical Examination General Exam: Positive: Alert, Cooperative, No Acute Distress Eye Exam: Positive: Conjunctiva & lids normal, EOMI, PERRLA ENT Exam: Positive: Atraumatic, Mucous membr. moist/pink Neck Exam: Positive: Supple Chest Exam: Positive: Normal air movement, Rhonchi Heart Exam: Positive: Rate Normal, Regular Rhythm Abdomen Exam: Positive: Normal bowel sounds, Soft, Tenderness Extremity Exam: Positive: Edema Psych Exam: Positive: Mental status NL, Oriented x 3 Assessment /Plan Problems Problems: (1) Food impaction of esophagus Status: Resolved Discussed With: Drafter [employer], Patient Problem Specific Plan: Consult Specialist, Monitor Clinically Problem Text: S/P upper endoscopy. Tolerating pureed diet. Abdominal pain/tenderness much improved. Gallbladder US unremarkable. Upper GI series significant for esophageal dysmotility. Discussed with GI, assistance appreciated. (2) Supratherapeutic INR Status: Resolved Response to Treatment: Stable Discussed With: Patient Problem Specific Plan: Monitor Clinically, Repeat Labs Problem Text: Resumed coumadin. INR subtherapeutic. Continue for now home dosage at 5mg daily. Patient checks INR daily at home and reports results to PCP. Hemorrhagic disorder due to extrinsic circulating anticoagulant (warfarin) s/p vitamin K and transfusion PRBC. (3) CHF (congestive heart failure) Status: Chronic Response to Treatment: Compensated Discussed With: Patient Problem Specific Plan: Monitor Clinically Problem Text: diastolic dysfunction compensated continue with lasix (4) Pulmonary embolism Status: Chronic Discussed With: Patient Problem Text: Have resumed her VKA. Patient is also s/p IVC filter. (5) Depression Status: Chronic Discussed With: Patient Problem Specific Plan: Monitor Clinically Problem Text: anxiety/depression as per medical records. Continue Prozac. (6) Obesity Status: Chronic Discussed With: Patient Problem Specific Plan: Monitor Clinically Problem Text: Further complicating factor to her medical care. (7) Chronic respiratory failure with hypoxia Status: Chronic Discussed With: Patient Problem Specific Plan: Monitor Clinically Problem Text: Still with productive cough. Sputum cultures noted. Continue Levaquin, has only received one dose as per renal dosing. Supplemental oxygen as per her baseline. Continue mucolytics, supplemental oxygen, respiratory regimen. (8) Iron deficiency Status: Chronic Discussed With: Patient Problem Specific Plan: Monitor Clinically Problem Text: Continue oral iron supplementation. (9) HTN (hypertension) Status: Chronic Response to Treatment: Controlled Discussed With: Patient Problem Specific Plan: Monitor Clinically Problem Text: Continue norvasc. Plan/VTE VTE Prophylaxis Ordered?: Yes (Heparin SC - resuming coumadin) Plan Diet: Continue Current Activity: Continue Current Respiratory: Wean Oxygen Diagnostics: Repeat Labs in AM, Other Diagnostics Anticipated Discharge: Home, Home With Services Disposition Anticipating discharge home in 24-48 hours. VS, I&O, 24H, [facility] Vital Signs/I&O Vital Signs Date Time Temp Pulse Resp B/P Pulse Ox O2 Delivery O2 Flow Rate FiO2 07/24/16 11:34 18 Room Air 07/24/16 09:46 63 138/73 07/24/16 06:00 96.8 92 2.0 I&O- Last 24 Hours up to 6 AM 07/24/16 06:00 Intake Total 2160 ml Output Total 1150 ml Balance 1010 ml Laboratory Data 24H LABS Laboratory Tests 2 07/24/16 06:13: Anion Gap 7L, Blood Urea Nitrogen 35H, Creatinine 1.66H, Sodium Level 141, Potassium Level 3.6, Chloride Level 98, Carbon Dioxide Level 36H, Calcium Level 8.4L, Glomerular Filtration Rate 31.9L, Magnesium Level 2.0, Prothromb Time International Ratio 1.46, Prothrombin Time 17.8H CBC/BMP Laboratory Tests 07/24/16 06:13 Calcium Level 8.4 L, Red Blood Count 2.64 L, Mean Corpuscular Volume 95.4, Mean Corpuscular Hemoglobin 30.7, Mean Corpuscular Hemoglobin Concent 32.2, Red Cell Distribution Width 18.1 H Microbiology Microbiology 07/17/16 Blood Culture - Final, Complete NO GROWTH AFTER 5 DAYS 07/16/16 Blood Culture - Final, Complete NO GROWTH AFTER 5 DAYS 07/17/16 Stool Occult Blood (JAKE) - Final, Complete 07/17/16 Gram Stain - Final, Complete 07/17/16 Sputum Culture - Final, Complete Stenotrophomonas Maltophilia 07/17/16 MRSA Screen - Final, Complete 07/17/16 Respiratory Virus Panel (PCR) (JAKE) - Final, Complete JESI POLO MD Jul 24, 2016 12:01
[2016-07-24 14:00] VITALS: BP 116/58
[2016-07-24] MEDS: WARFARIN SOD 5 MG TAB PO SCH (17:34)
[2016-07-24] MEDS: ATORVASTATIN 20 MG TAB PO SCH (20:07)
[2016-07-24] MEDS: LORATADINE 10 MG TAB PO SCH (20:07)
[2016-07-24] MEDS: traZODone 100 MG TAB PO SCH (20:07)
[2016-07-24] MEDS: FLUTICASONE PROP 0.05% NASAL SPRAY 16 GM (FLONASE) SCH (20:08)
[2016-07-24 22:00] VITALS: BP 121/56
[2016-07-25] MEDS: IPRATROPIUM 0.5MG/ALBUTEROL 2.5MG INH SOL UD 3ML (DUONEB)(J7620) NEB SCH ×4 (01:49→19:21)
[2016-07-25] MEDS: ALENDRONATE 70 MG TABLET (FOSAMAX) PO SCH (05:39)
[2016-07-25] MEDS: SLF 3 ML SYR IV SCH ×3 (05:44→20:40)
[2016-07-25 06:00] VITALS: BP 134/60
[2016-07-25] MEDS: TIOTROPIUM INHALER/CAPSULE (SPIRIVA) INH SCH (07:49)
[2016-07-25] MEDS: SYMBICORT 160/4.5MCG INHALER 6GM INH SCH ×2 (07:49→19:21)
[2016-07-25] MEDS: FLUoxetine 20 MG CAP PO SCH (08:24)
[2016-07-25] MEDS: GABAPENTIN 300 MG CAP PO SCH ×2 (08:24→20:39)
[2016-07-25] MEDS: MIRALAX *UNIT DOSE* 17GM PACKET PO SCH (08:24)
[2016-07-25] MEDS: SENOKOT S TAB PO SCH ×2 (08:24→20:38)
[2016-07-25] MEDS: oxyBUTYnin *DITROPAN XL* 5 MG TABCR PO SCH (08:24)
[2016-07-25] MEDS: PANTOPRAZOLE 40MG TAB (PROTONIX) PO SCH ×2 (08:24→20:38)
[2016-07-25] MEDS: predniSONE 20 MG TAB PO SCH (08:25)
[2016-07-25] MEDS: amLODIPine 10 MG TAB PO SCH (08:25)
[2016-07-25] MEDS: guaiFENesin ER 600 MG TAB PO SCH ×2 (08:25→20:38)
[2016-07-25] MEDS: HEPARIN SOD (PORCINE) 5000 UNITS/ML VIAL SQ SCH ×2 (08:25→20:39)
[2016-07-25] MEDS: FUROSEMIDE 80 MG TAB PO SCH (08:25)
[2016-07-25] MEDS: FERROUS SULFATE 325MG TAB PO SCH (08:25)
[2016-07-25 10:15] LABS: MEAN CORPUSCULAR HEMOGLOBIN 31.1 pg (27.0-33.0); MEAN CORPUSCULAR HGB CONC 32.3 g/dl (32.0-36.5); MEAN CORPUSCULAR VOLUME 96.4 fl (80.0-96.0); WHITE BLOOD COUNT 12.1 K/mm3 (4.0-10.0)
--- NOTE | 2016-07-25 11:23 | IPNPDOC ---
Subjective General Date Seen The patient was seen on 07/25/16. Subjective Chief Complaint/HPI The patient is a 75-year-old female admitted with a reason for visit of Copd Exacerbation;Sob. General: Denies: Chills, Fatigue, Malaise, Night Sweats, Normal Appetite, Other Symptoms, ROS Unobtainable Constitutional: Denies: Chills, Fatigue, Fever, Lethargy, Malaise, Night Sweats , Other, Weakness, Weight Loss Eyes: Denies: Conjunctivae inflammation, Eyelid inflammation, Other, Pain, Redness, Vision change ENT: Denies: Dysphagia, Ear Pain, Epistaxis, Head Aches, Other Symptoms, Post Nasal Drip, Sinus Congestion, Sore Throat Skin: Denies: Breakdown, Bruising, Dry, Itching, Jaundice, Lesions, Nail Changes, Other, Rash Pulmonary: Reports: Cough, Dyspnea, Denies: Other Symptoms, Pleuritic Chest Pain Cardiovascular: Denies: Chest Pain, Edema, Lt Headedness, Orthopnea, Other Symptoms, Palpitations, Paroxysmal Noc. Dyspnea Gastrointestinal: Denies: Abdominal Pain, Constipation, Diarrhea, Hematochezia , Melena, Nausea, Other Symptoms, Vomiting Genitourinary: Denies: Dysuria, Frequency, Hematuria, Incontinence, Other Symptoms, Retention Objective Physical Examination General Exam: Positive: Alert, Cooperative, No Acute Distress Eye Exam: Positive: Conjunctiva & lids normal, EOMI, PERRLA ENT Exam: Positive: Atraumatic, Mucous membr. moist/pink Neck Exam: Positive: Supple Chest Exam: Positive: Normal air movement, Rhonchi Heart Exam: Positive: Rate Normal, Regular Rhythm Abdomen Exam: Positive: Normal bowel sounds, Soft, Negative: Tenderness Extremity Exam: Positive: Edema Psych Exam: Positive: Mental status NL, Oriented x 3 Assessment /Plan Problems Problems: (1) Food impaction of esophagus Status: Resolved Discussed With: Rippler, Patient Problem Specific Plan: Consult Specialist, Monitor Clinically Problem Text: S/P upper endoscopy. Tolerating pureed diet. Abdominal pain/tenderness much improved. Gallbladder US unremarkable. Upper GI series significant for esophageal dysmotility. Discussed with GI, assistance appreciated. (2) Supratherapeutic INR Status: Resolved Response to Treatment: Stable Discussed With: Patient Problem Specific Plan: Monitor Clinically, Repeat Labs Problem Text: Resumed coumadin. INR subtherapeutic. Continue for now home dosage at 5mg daily. Patient checks INR daily at home and reports results to PCP. Hemorrhagic disorder due to extrinsic circulating anticoagulant (warfarin) s/p vitamin K and transfusion PRBC. (3) CHF (congestive heart failure) Status: Chronic Response to Treatment: Compensated Discussed With: Patient Problem Specific Plan: Monitor Clinically Problem Text: diastolic dysfunction compensated continue with lasix (4) Pulmonary embolism Status: Chronic Discussed With: Patient Problem Text: Have resumed her VKA. Patient is also s/p IVC filter. INR therapeutic at 2.0 today. Will discharge on reduced dosage at 3mg daily. (5) Depression Status: Chronic Discussed With: Patient Problem Specific Plan: Monitor Clinically Problem Text: anxiety/depression as per medical records. Continue Prozac. (6) Obesity Status: Chronic Discussed With: Patient Problem Specific Plan: Monitor Clinically Problem Text: Further complicating factor to her medical care. (7) Chronic respiratory failure with hypoxia Status: Chronic Discussed With: Patient Problem Specific Plan: Monitor Clinically Problem Text: Still with productive cough. Sputum cultures noted. Continue Levaquin, has only received one dose as per renal dosing. Supplemental oxygen as per her baseline. Continue mucolytics, supplemental oxygen, respiratory regimen. (8) Iron deficiency Status: Chronic Discussed With: Patient Problem Specific Plan: Monitor Clinically Problem Text: Continue oral iron supplementation. (9) HTN (hypertension) Status: Chronic Response to Treatment: Controlled Discussed With: Patient Problem Specific Plan: Monitor Clinically Problem Text: Continue norvasc. Plan/VTE VTE Prophylaxis Ordered?: Yes (Heparin SC - resuming coumadin) Plan Diet: Continue Current Activity: Continue Current Respiratory: Wean Oxygen Diagnostics: Repeat Labs in AM Anticipated Discharge: Home, Home With Services VS, I&O, 24H, [facility] Vital Signs/I&O Vital Signs Date Time Temp Pulse Resp B/P Pulse Ox O2 Delivery O2 Flow Rate FiO2 07/25/16 10:20 Nasal Cannula 2.0 07/25/16 08:25 80 128/72 07/25/16 06:00 97.0 18 94 I&O- Last 24 Hours up to 6 AM 07/25/16 06:00 Intake Total 480 ml Output Total 1400 ml Balance -920 ml Laboratory Data 24H LABS Laboratory Tests 2 07/25/16 09:56: Prothromb Time International Ratio 2.00, Prothrombin Time 22.8H CBC/BMP Laboratory Tests 07/25/16 09:56 Red Blood Count 2.92 L, Mean Corpuscular Volume 96.4 H, Mean Corpuscular Hemoglobin 31.1, Mean Corpuscular Hemoglobin Concent 32.3, Red Cell Distribution Width 19.0 H Microbiology Microbiology 07/17/16 Blood Culture - Final, Complete NO GROWTH AFTER 5 DAYS 07/16/16 Blood Culture - Final, Complete NO GROWTH AFTER 5 DAYS 07/24/16 Stool Occult Blood (JAKE) - Final, Complete 07/17/16 Stool Occult Blood (JAKE) - Final, Complete 07/17/16 Gram Stain - Final, Complete 07/17/16 Sputum Culture - Final, Complete Stenotrophomonas Maltophilia 07/17/16 MRSA Screen - Final, Complete 07/17/16 Respiratory Virus Panel (PCR) (JAKE) - Final, Complete JESI POLO MD Jul 25, 2016 11:22
[2016-07-25 14:00] VITALS: BP 126/60
[2016-07-25] MEDS ORDERED: WARFARIN SOD 3 MG TAB PO SCH (17:00)
[2016-07-25] MEDS: LORATADINE 10 MG TAB PO SCH (20:38)
[2016-07-25] MEDS: ATORVASTATIN 20 MG TAB PO SCH (20:38)
[2016-07-25] MEDS: traZODone 100 MG TAB PO SCH (20:39)
[2016-07-25] MEDS: FLUTICASONE PROP 0.05% NASAL SPRAY 16 GM (FLONASE) SCH (20:40)
[2016-07-25] MEDS ORDERED: LevoFLOXacin 500 MG TABLET PO SCH (21:00)
[2016-07-25 22:00] VITALS: BP 118/61
[2016-07-26] MEDS: IPRATROPIUM 0.5MG/ALBUTEROL 2.5MG INH SOL UD 3ML (DUONEB)(J7620) NEB SCH ×2 (02:00→08:00)
[2016-07-26 04:00] VITALS: BP 141/74
[2016-07-26] MEDS: SLF 3 ML SYR IV SCH (05:23)
[2016-07-26 06:00] VITALS: BP 134/65
[2016-07-26 06:28] LABS: INR 2.77
[2016-07-26] MEDS: SYMBICORT 160/4.5MCG INHALER 6GM INH SCH (07:28)
[2016-07-26] MEDS: TIOTROPIUM INHALER/CAPSULE (SPIRIVA) INH SCH (07:28)
[2016-07-26] MEDS: MIRALAX *UNIT DOSE* 17GM PACKET PO SCH (09:00)
[2016-07-26] MEDS: SENOKOT S TAB PO SCH (09:00)
[2016-07-26] MEDS: FLUoxetine 20 MG CAP PO SCH (09:19)
[2016-07-26] MEDS: FERROUS SULFATE 325MG TAB PO SCH (09:19)
[2016-07-26] MEDS: guaiFENesin ER 600 MG TAB PO SCH (09:19)
[2016-07-26] MEDS: oxyBUTYnin *DITROPAN XL* 5 MG TABCR PO SCH (09:19)
[2016-07-26] MEDS: PANTOPRAZOLE 40MG TAB (PROTONIX) PO SCH (09:20)
[2016-07-26] MEDS: GABAPENTIN 300 MG CAP PO SCH (09:20)
[2016-07-26] MEDS: predniSONE 20 MG TAB PO SCH (09:20)
[2016-07-26] MEDS: FUROSEMIDE 80 MG TAB PO SCH (09:20)
[2016-07-26 09:21] VITALS: BP 134/65
[2016-07-26] MEDS ORDERED: PRED10TA PO (09:21)
[2016-07-26] MEDS: HEPARIN SOD (PORCINE) 5000 UNITS/ML VIAL SQ SCH (09:21)
[2016-07-26] MEDS: amLODIPine 10 MG TAB PO SCH (09:21)
[2016-07-26] MEDS ORDERED: WARF-23 PO (09:21)
[2016-07-26] MEDS ORDERED: PRED10PA PO (09:21)
--- NOTE | 2016-07-26 11:22 | DS.PDOC ---
Discharge Summary General Date of Admission Jul 17, 2016 at 01:57 Date of Discharge Jul 26, 2016 Primary Care Physician: BARBARA TA MD Specialist/Consultants Involve: [place] Discharge Summary PROCEDURES PERFORMED DURING STAY: Upper endoscopy for esophageal food impaction COMPLICATIONS/CHIEF COMPLAINT: Copd Exacerbation;Sob ADMISSION DIAGNOSES: 1. Acute on chronic hypoxic respiratory failure. 2. Pneumonia 3. COPD exacerbation 4. Coagulopathy - supratherapeutic INR 5. CHF - diastolic dysfunction 6. Hisotry of pulmonary embolism 7. Depression 8. Obesity 9. Iron deficiency anemia 10. HTN DISCHARGE DIAGNOSES: 1. Esophageal dysmotility 2. Esophageal food impactions s/p endoscopy 3. Acute on chronic hypoxic respiratory failure. 4. Pneumonia 5. COPD exacerbation 6. Coagulopathy 7. CHF - diastolic dysfunction 8. Hisotry of pulmonary embolism 9. Depression 8. Obesity 9. Iron deficiency anemia 10. HTN HISTORY OF PRESENT ILLNESS: Patient is a 75-year-old female presenting for worsening shortness of breath. HOSPITAL COURSE: Patient was admitted for acute on chronic hypoxic respiratory failure secondary to COPD exacerbation complicated pneumonia. Patient was also found to have supratherapeutic INR. Patient was admitted for further evaluation and treatment including Vitamin K, IV antibiotics and IV steroids. Hospital stay was complicated with dysphagia, with CT chest indicating esophageal food impaction. Gastroenterology was consulted and patient underwent urgent endoscopy. She did not tolerate advancing her diet. Her diet was reverted and an upper GI series was obtained, which revealed esophageal dysmotility. Her diet was advanced to pureed which was tolerated. Her coumadin has been resumed at a lower dosage with instructions to continue with daily INR reported to her PCP as previous situations. Patient discharged in stable condition with instructions as indicated. DISCHARGE MEDICATIONS: Please see below. ALLERGIES: Please see below. PHYSICAL EXAMINATION ON DISCHARGE: VITAL SIGNS: Please see below. GENERAL: NAD HEENT: NC/AT, EOMI, PERRL, nasal cannula in place NECK: supple CARDIOVASCULAR EXAMINATION: +S1S2, RRR RESPIRATORY EXAMINATION: CTA B/L ABDOMINAL EXAMINATION: soft, NT, +BS, obese EXTREMITIES: no edema SKIN: no rashes NEUROLOGICAL EXAMINATION: no gross focal deficits PSYCHIATRIC EXAMINATION: AAOx3 LABORATORY DATA: Please see below. DISCHARGE CONDITION: [Stable]. DISPOSITION: Discharge home with services ACTIVITY: As tolerated DIET: 2 gram sodium ITEMS TO FOLLOWUP ON OUTPATIENT: 1. Daily INR and report to PCP for dosage instructions as per previous directions DISCHARGE PLAN AND INSTRUCTIONS: 1. PCP in 3-5 days TIME SPENT ON DISCHARGE: Greater than 30 minutes. Vital Signs/I&Os Vital Signs Date Time Temp Pulse Resp B/P Pulse Ox O2 Delivery O2 Flow Rate FiO2 07/26/16 09:21 63 134/65 07/26/16 06:00 97.3 18 95 Nasal Cannula 2.0 I&O- Last 24 Hours up to 6 AM 07/26/16 06:00 Intake Total 990 ml Output Total 1600 ml Balance -610 ml Laboratory Data Labs 24H Laboratory Tests 2 07/26/16 06:04: Prothromb Time International Ratio 2.77, Prothrombin Time 29.3H Microbiology Microbiology 07/17/16 Blood Culture - Final, Complete NO GROWTH AFTER 5 DAYS 07/16/16 Blood Culture - Final, Complete NO GROWTH AFTER 5 DAYS 07/24/16 Stool Occult Blood (JAKE) - Final, Complete 07/17/16 Stool Occult Blood (JAKE) - Final, Complete 07/17/16 Gram Stain - Final, Complete 07/17/16 Sputum Culture - Final, Complete Stenotrophomonas Maltophilia 07/17/16 MRSA Screen - Final, Complete 07/17/16 Respiratory Virus Panel (PCR) (JAKE) - Final, Complete Medications Scheduled (Calcium 500+D 500-200 mg-Unit) 1 Tab Tab 1 TAB PO BID Alendronate Sodium (Alendronate Sodium) 70 Mg Tab 70 MG PO QWEEK EVERY TUESDAY Amlodipine Besylate (Amlodipine Besylate) 10 Mg Tab 10 MG PO DAILY Aspirin (Aspirin 81) 81 Mg Tab 81 MG PO DAILY Cefuroxime Axetil (Ceftin) 500 Mg Tab 500 MG PO BID For 10 days; filled 07/07/2016 Docusate Sodium (Colace) 100 Mg Cap 100 MG PO BID Ferrous Sulfate (Ferrous Sulfate) 325 Mg Tab 325 MG PO DAILY Fluoxetine Hcl (Fluoxetine HCl) 20 Mg Cap 60 MG PO DAILY Fluticasone Propionate (Fluticasone Propionate 0.05%) 120 [place]/16 Gm Naspr 2 SPRAY NA QHS PER NOSTRIL Furosemide (Furosemide) 80 Mg Tab 80 MG PO DAILY Gabapentin (Gabapentin) 600 Mg Tab 600 MG PO BID Loratadine (Claritin) 10 Mg Tab 10 MG PO QHS Magnesium Oxide (Magnesium) 500 Mg Tab 500 MG PO QHS Nystatin (Nystatin Oral Susp) 5 Ml Susp 5 ML SS QID for 10 days, filled 06/03 Oxybutynin Chloride (Oxybutynin Chloride ER) 15 Mg Tab 15 MG PO DAILY Pantoprazole Sodium (Pantoprazole Sodium) 40 Mg Tab 40 MG PO DAILY Polyethylene Glycol (Miralax) 1 Pow Pow 17 GM PO DAILY Prednisone (Prednisone) 10 Mg Tab 10 MG PO DAILY Resume after steroid taper on 07/30/16 Prednisone (Prednisone) 10 Mg Davin 10 MG PO DAILY Salmeterol/Fluticasone (Advair Diskus 250-50 Mcg/Dose) 14 Puff/Inhaler Aerp 1 PUFF INH BID Simvastatin (Simvastatin) 10 Mg Tab 10 MG PO QHS Tiotropium [place] Monohydrate (Spiriva Handihaler) 18 Mcg Cap 1 INHALATION INH DAILY Trazodone HCl (Trazodone HCl) 100 Mg Tab 200 MG PO QHS SLEEP Warfarin Sod (Warfarin Sodium) 5 Mg Tab 2.5 MG PO QPM Check daily INR and report results to PCP as previous directions. Scheduled PRN Acetaminophen/Hydrocodone ([place] 7.5-325 mg) 1 Tab Tab 1 TAB PO QID PRN PRN PAIN Albuterol Sulfate (Ventolin Hfa) 200 Puff/8 Gm Aers 2 PUFF INH Q4H PRN PRN SHORTNESS OF BREATH Albuterol/Ipratropium (Ipratropium Seymour/Albut 0.5-2.5 (3) mg/3Ml) 1 Alek Alek 1 ALEK INH Q4H PRN PRN SHORTNESS OF BREATH Nitroglycerin (Nitrostat) 0.4 Mg Subl 0.4 MG SL Q5MP PRN PRN CHEST PAIN Allergies Coded Allergies: Lisinopril (Verified Allergy, Intermediate, HIVES ND SWELLING, 09/18/12) Penicillins (Verified Allergy, Intermediate, TRIMOX-HIVES, 09/18/12) Sulfa Drugs (Verified Allergy, Intermediate, HIVES, 09/18/12) Amoxicillin (Unverified Allergy, Unknown, 08/20/15) Oxycodone (Verified Allergy, Unknown, PERCOCET, 09/18/12) Temazepam (Unverified Allergy, Unknown, 08/20/15) JESI POLO MD Jul 26, 2016 11:22
== END 2016-07-26 12:54 | disposition home or self-care (01) | DRG 193 ==
LOC: M ED 22:51 → M ED INP 07-17 01:57 → M PCU 07-17 16:30 → M MSPAV 07-22 15:26
PROVIDERS: ADMIT Hospitalist; ATTEND Internal Medicine
PROC: 30233N1 Transfusion of Nonautologous Red Blood Cells into Peripheral Vein, Percutaneous Approach (ICD-10-PCS; 2016-07-17)
PROC: 0DC58ZZ Extirpation of Matter from Esophagus, Via Natural or Artificial Opening Endoscopic (ICD-10-PCS; principal; 2016-07-19 20:31)
DX: J18.9 Pneumonia, unspecified organism (principal); J96.21 Acute and chronic respiratory failure with hypoxia; K92.2 Gastrointestinal hemorrhage, unspecified; D62 Acute posthemorrhagic anemia; J44.1 Chronic obstructive pulmonary disease with (acute) exacerbation; I50.32 Chronic diastolic (congestive) heart failure; I13.0 Hypertensive heart and chronic kidney disease with heart failure and stage 1 through stage 4 chronic kidney disease, or unspecified chronic kidney disease; N18.4 Chronic kidney disease, stage 4 (severe); N17.9 Acute kidney failure, unspecified; D68.9 Coagulation defect, unspecified; Z66 Do not resuscitate; E66.9 Obesity, unspecified; F32.9 Major depressive disorder, single episode, unspecified; Z86.711 Personal history of pulmonary embolism; Z85.3 Personal history of malignant neoplasm of breast; Z79.01 Long term (current) use of anticoagulants; K21.9 Gastro-esophageal reflux disease without esophagitis; F41.9 Anxiety disorder, unspecified; Z88.0 Allergy status to penicillin; Z88.5 Allergy status to narcotic agent; Z88.2 Allergy status to sulfonamides; Z88.8 Allergy status to other drugs, medicaments and biological substances; Z87.891 Personal history of nicotine dependence; Z79.899 Other long term (current) drug therapy; Z79.82 Long term (current) use of aspirin; T18.128A Food in esophagus causing other injury, initial encounter

== ENCOUNTER 2016-07-28 12:53 | Emergency (ER) | payer MEDICARE ==
[~2016-07-28 12:53] MED LIST changes: +CEFT500T3 PO; +FURO1TAB15 PO; +PRED10PA PO
--- NOTE | 2016-07-28 15:35 | REP ---
CT HEAD WITHOUT CONTRAST: HISTORY: Trauma. COMPARISON: 07/17/2016 Areas of decreased attenuation are present in the periventricular white matter. This represents small vessel ischemic disease. There is no intraparenchymal hemorrhage, mass or midline shift. Calcification is present in the basal ganglia and right cerebellum. The ventricular system and cortical sulci as well as subarachnoid space and the posterior fossa are dilated consistent with mild volume loss. There is no extracerebral collection. There is no fracture. The visualized sinuses are clear. IMPRESSION: 1. Small vessel ischemic disease. 2. Mild volume loss. Signed by Ankit Ba MD 07/28/2016 03:50 P
[2016-07-28 15:49] LABS: MEAN CORPUSCULAR HEMOGLOBIN 32.3 pg (27.0-33.0); MEAN CORPUSCULAR HGB CONC 32.8 g/dl (32.0-36.5); MEAN CORPUSCULAR VOLUME 98.6 fl (80.0-96.0); RED CELL DISTRIBUTION WIDTH 18.6 % (11.5-14.5); WHITE BLOOD COUNT 16.4 K/mm3 (4.0-10.0)
[2016-07-28 15:54] LABS: INR 1.77
--- NOTE | 2016-07-28 15:55 | REP ---
LEFT SHOULDER: Three views of the left shoulder are performed. I see no acute fracture or dislocation. Prosthesis is again noted in the proximal left humerus. There is sclerotic change and spurring of the bony glenoid. There is narrowing and spurring at the acromioclavicular joint. IMPRESSION: No evidence of acute fracture or dislocation. Signed by Juvenal Laird MD 07/29/2016 09:48 A
--- NOTE | 2016-07-28 15:56 | REP ---
LEFT ELBOW, FOUR VIEWS: HISTORY: Trauma. There is no acute fracture or dislocation. The joint space is normal in appearance. IMPRESSION: There is no acute fracture or dislocation. Signed by Ankit Ba MD 07/28/2016 03:58 P
--- NOTE | 2016-07-28 15:57 | REP ---
PELVIS AND RIGHT HIP: AP view of the pelvis and two views of the right hip are performed. Patient has upper GI series one week ago and there is residual barium in the colon which obscures some of the pelvic osseous structures. I see no evidence of acute fracture or dislocation of the visualized osseous structures. IMPRESSION: No evidence of acute fracture or dislocation of the visualized osseous structures. Signed by Juvenal aLird MD 07/29/2016 09:49 A
--- NOTE | 2016-07-28 16:42 | EDDOCDS ---
Physician Documentation [facility] Name: Isidra Delacruz Age: 75 yrs Sex: Female : 1940 Arrival Date: 07/28/2016 Time: 12:53 Bed D1 Private MD: David Lee P. Disposition: 07/28/16 16:04 Discharged to Home/Self Care. Impression: Fall on same level from slipping, tripping and stumbling, Contusion of right hip, Contusion of left shoulder, Open wound of forearm - skin tear. - Condition is Stable. - Discharge Instructions: Elastic Bandage and RICE, Contusion, Skin Tear Care, Thrush, Adult, Wound Care, [id number]. - Prescriptions for Clotrimazole 10 mg Mucous Membrane Jessica - dissolve 1 Jessica by ORAL route 5 times per day for 14 days; 70 lozenge. - Medication Reconciliation, Local Pharmacy Hours form. - Follow up: David Lee; When: 4 - 5 days; Reason: Recheck today's complaints, Continuance of care. - Problem is new. - Symptoms are unchanged. Historical: - Allergies: Amoxicillin (Hives); Lisinopril (Swelling, Anaphylaxis); Oxycodone HClagitation; SULFA (SULFONAMIDES) (Hives); Temazepam (Swelling); - Home Meds: 1. Advair Diskus 250-50 mcg/dose Inhl dsdv 2 times per day 2. albuterol sulfate 2.5 mg /3 mL (0.083 %) Inhl nebu 4 times per day 3. albuterol sulfate 90 mcg/actuation Inhl aepb every 4 hours 4. alendronate 70 mg oral tab once wkly Tuesday 5. amlodipine 10 mg Oral tab 1 tab once daily 6. aspirin 81 mg Oral chew once daily 7. Calcium + Vitamin D 5oo/200 Oral twice a day 8. Cefuroxime Oral 500 mg 9. Colace 100 mg oral tab 1 cap 2 times per day takes 1 daily as needed 10. Coumadin 5 mg Oral tab once daily 11. erythromycin 5 mg/gram (0.5 %) Opht oint 6 times per day 12. ferrous sulfate 325 mg (65 mg iron) Oral cpER daily 13. furosemide 80 mg Oral tab 1 tab once daily 14. fluticasone 50 mcg/actuation nasal spsn 2 sprays once daily 15. Nitrostat 0.4 mg SL subl every 5 minutes prn 16. loratadine 10 mg Oral tab 1 tab once daily 17. gabapentin 600 mg Oral tab 1 tab bid 18. fluticasone-salmeterol 45-21 mcg/actuation inhalation HFAA 2 puffs 2 times per day 19. magnesium oxide 500 mg Oral cap nightly 20. oxybutynin chloride 15 mg Oral tr24 once daily 21. trazadone 100 mg 100 mg daily 22. trazodone 100 mg Oral tab 2 tabs nightly 23. simvastatin 10 mg Oral tab 1 tab once daily 24. prednisone 10 mg Oral tab once daily 25. polyethylene glycol 3350 17 gram/dose oral powd once daily 26. oxygen NC 2 liters continuous 27. Hayden 7.5-325 mg Oral tab QID prn 28. Protonix 40 mg Oral TbEC 1 tab once daily 29. nystatin 100,000 unit/mL Oral susp 10 mL 4 times per day 30. fluoxetine 60 mg Oral tab once daily 31. Spiriva with HandiHaler 18 mcg Inhl CpDv 1 cap once daily - PMHx: Anxiety; Cancer, Breast - Left; Cancer, Breast - Right; CHF; COPD; GERD; PE; - PSHx: Mastectomy- Bilateral; Tubal ligation; Ankle Arthroplasty, Left; Shoulder Arthroplasty, Left; - Social history: Smoking status: Patient states former smoker of tobacco. No barriers to communication noted, The patient speaks fluent Maltese, Speaks appropriately for age. - Family history: Not pertinent. - : The pt / caregiver states he / she is not on anticoagulants. Home medication list is obtained from the patient, [employer] import data. - Exposure Risk Screening:: None identified. Vital Signs: 07/28 13:05 BP 116 / 68 (auto/); Pulse 68; Resp 18; Temp 98.6(O); Pulse Ox 97% ; Weight 82.55 kg / js13 181.99 lbs; Height 5 ft. 2 in. (157.48 cm); 16:13 BP 127 / 63 (auto/); Pulse 70; Resp 18; Temp 98.9(O); Pulse Ox 95% on R/A; jo3 13:05 Body Mass Index 33.29 (82.55 kg, 157.48 cm) js13 MDM: 14:18 CT Head Without Contrast Ordered. EDMS 14:19 CBC Ordered. EDMS 14:19 PT/INR Ordered. EDMS 14:20 Elbow, Complete Ordered. EDMS 14:20 Shoulder, Complete Ordered. EDMS 14:20 Hip,AP,LAT to include Pelvis Ordered. EDMS 15:44 Financial registration complete. gjb 15:59 CBC Reviewed. ke 15:59 PT/INR Reviewed. ke 15:59 CT Head Without Contrast Reviewed. ke 16:08 [facility] Payment Agreement was scanned into [employer] and attached to record. gjb Signatures: Dispatcher [employer] EDMS Erik Oneill, INTERNET MARKETING MANAGER INTERNET MARKETING MANAGER Gabriella Guan,RN RN jo3 Gabriella FloresRN RN js13 Maribell Prasad The chart was reviewed and I authenticate all verbal orders and agree with the evaluation and treatment provided.Attachments: 16:08 [facility] Payment Agreement gjb [email or web address]
--- NOTE | 2016-07-28 16:42 | EDDOCDS ---
Nurse's Notes [facility] Name: Isidra Delacruz Age: 75 yrs Sex: Female : 1940 Arrival Date: 07/28/2016 Time: 12:53 Bed D1 Private MD: David Lee P. Diagnosis: Fall on same level from slipping, tripping and stumbling;Contusion of right hip;Contusion of left shoulder;Open wound of forearm-skin tear Presentation: 07/28 13:00 Presenting complaint: EMS states: at home putting away ironing board. Patient tripped hs1 and has skin tear to entire left arm. Patient also hit head and on coumadin. 13:01 Presenting complaint: EMS states: Pt was admitted for two week and released last week jo3 for respiratory issues. NSR on monitor and FSBS was 244. Suicide/Homicide risk assessment- the patient denies having any suicidal and/or homicidal ideations and does not present with any other emotional, behavioral or mental health complaints. Status: Patient is not a service sprinkler helper or dependent. Transition of care: patient was not received from another setting of care. 13:01 Method Of Arrival: Ambulance jo3 13:29 Adult Sepsis Screening: The patient does not have new or worsening altered mentation. js13 Patient's respiratory rate is less than 22. Systolic blood pressure is greater than 100. Patient has a qSOFA score of 0- Negative Sepsis Screen. 13:29 Acuity: GALA Level 3 js13 Triage Assessment: 13:25 General: Appears in no apparent distress, Behavior is appropriate for age, cooperative, js13 pleasant. Neurological: Level of Consciousness is awake, alert, Oriented to person, place, time. Cardiovascular: No deficits noted. Respiratory: Airway is patent Respiratory effort is even, unlabored, Breath sounds are coarse bilaterally. Derm: large skin tear to left upper and lower arm. Covered with abd pad and wrapped with kerlix. Musculoskeletal: Pt reports pain to right anterior chest, right shoulder and right hip. Historical: - Allergies: Amoxicillin (Hives); Lisinopril (Swelling, Anaphylaxis); Oxycodone HClagitation; SULFA (SULFONAMIDES) (Hives); Temazepam (Swelling); - Home Meds: 1. Advair Diskus 250-50 mcg/dose Inhl dsdv 2 times per day 2. albuterol sulfate 2.5 mg /3 mL (0.083 %) Inhl nebu 4 times per day 3. albuterol sulfate 90 mcg/actuation Inhl aepb every 4 hours 4. alendronate 70 mg oral tab once wkly Tuesday 5. amlodipine 10 mg Oral tab 1 tab once daily 6. aspirin 81 mg Oral chew once daily 7. Calcium + Vitamin D 5oo/200 Oral twice a day 8. Cefuroxime Oral 500 mg 9. Colace 100 mg oral tab 1 cap 2 times per day takes 1 daily as needed 10. Coumadin 5 mg Oral tab once daily 11. erythromycin 5 mg/gram (0.5 %) Opht oint 6 times per day 12. ferrous sulfate 325 mg (65 mg iron) Oral cpER daily 13. furosemide 80 mg Oral tab 1 tab once daily 14. fluticasone 50 mcg/actuation nasal spsn 2 sprays once daily 15. Nitrostat 0.4 mg SL subl every 5 minutes prn 16. loratadine 10 mg Oral tab 1 tab once daily 17. gabapentin 600 mg Oral tab 1 tab bid 18. fluticasone-salmeterol 45-21 mcg/actuation inhalation HFAA 2 puffs 2 times per day 19. magnesium oxide 500 mg Oral cap nightly 20. oxybutynin chloride 15 mg Oral tr24 once daily 21. trazadone 100 mg 100 mg daily 22. trazodone 100 mg Oral tab 2 tabs nightly 23. simvastatin 10 mg Oral tab 1 tab once daily 24. prednisone 10 mg Oral tab once daily 25. polyethylene glycol 3350 17 gram/dose oral powd once daily 26. oxygen NC 2 liters continuous 27. [place] 7.5-325 mg Oral tab QID prn 28. Protonix 40 mg Oral TbEC 1 tab once daily 29. nystatin 100,000 unit/mL Oral susp 10 mL 4 times per day 30. fluoxetine 60 mg Oral tab once daily 31. Spiriva with HandiHaler 18 mcg Inhl CpDv 1 cap once daily - PMHx: Anxiety; Cancer, Breast - Left; Cancer, Breast - Right; CHF; COPD; GERD; PE; - PSHx: Mastectomy- Bilateral; Tubal ligation; Ankle Arthroplasty, Left; Shoulder Arthroplasty, Left; - Social history: Smoking status: Patient states former smoker of tobacco. No barriers to communication noted, The patient speaks fluent Panamanian, Speaks appropriately for age. - Family history: Not pertinent. - : The pt / caregiver states he / she is not on anticoagulants. Home medication list is obtained from the patient, [employer] import data. - Exposure Risk Screening:: None identified. Screenin:37 Screening information is obtained from the patient. Fall risk: No risks identified. jo3 Assistance ADL's: requires no assistance with activities of daily living. Abuse/DV Screen: The patient / caregiver reports he/she is: not in a situation that causes fear, pain or injury. Nutritional screening: No deficits noted. Advance Directives: There is no active DNR order. home support is adequate. Assessment: 13:10 Reassessment: See triage assessment . jo3 14:00 Reassessment: No significant changes noted. respirations unlabored, deep and regular. jo3 Skin is pink, warm and dry. Dressing to left arm is dry and intact. Awaiting visit from ED provider. Aware of plan of care . 14:45 Reassessment: Pt is in radiology at this time. Family in room . jo3 15:34 General: Appears in no apparent distress, comfortable, Behavior is appropriate for age, jo3 cooperative, pleasant. General: Family at bedside. awaiting results at this time. Aware of plan of care . Neurological: Level of Consciousness is awake, alert, Oriented to person, place, time. Cardiovascular: No deficits noted. Respiratory: Airway is patent Respiratory effort is even, unlabored. 16:20 General: Appears in no apparent distress, comfortable, Behavior is appropriate for age, jo3 cooperative. General: Discharged at this time . Neurological: Level of Consciousness is awake, alert, Oriented to person, place, time. Respiratory: Airway is patent Respiratory effort is even, unlabored. Vital Signs: 13:05 BP 116 / 68 (auto/); Pulse 68; Resp 18; Temp 98.6(O); Pulse Ox 97% ; Weight 82.55 kg; js13 Height 5 ft. 2 in. (157.48 cm); 16:13 BP 127 / 63 (auto/); Pulse 70; Resp 18; Temp 98.9(O); Pulse Ox 95% on R/A; jo3 13:05 Body Mass Index 33.29 (82.55 kg, 157.48 cm) js13 ED Course: 12:54 Patient visited by Giovanna Paz, Head Of Housekeeping. lbd 12:54 David Lee is Private Physician. lbd 12:54 Patient moved to Waiting lbd 12:54 Patient moved to 13 lbd 13:30 Patient visited by Gabriella Flores,LEYDA. js13 13:30 Triage Initiated js13 14:11 [facility] ke 14:11 Patient visited by Erik Oneill FNP. ke 14:11 Patient visited by Erik Oneill FNP. ke 14:44 Patient moved to Radiology bh4 15:08 Patient moved to 13 bh4 15:12 Patient visited by Erik Oneill FNP. ke 15:28 PT/INR Sent. jo3 15:28 CBC Sent. jo3 15:37 The patient / caregiver is instructed regarding the plan of care and ED course. jo3 15:41 Patient visited by Gabriella Foss RN. jo3 15:49 CT Head Without Contrast Returned. EDMS 16:02 David Lee is Referral Physician. ke 16:08 [facility] Payment Agreement was scanned into [employer] and attached to record. gjb 16:31 Patient moved to D1 ml6 16:36 CT Head Without Contrast Returned. EDMS 16:36 Shoulder, Complete Returned. EDMS 16:36 Elbow, Complete Returned. EDMS 16:36 Hip,AP,LAT to include Pelvis Returned. EDMS 16:41 No IV's were initiated during this patient's visit. No procedures done that require jo3 assistance. Order Results: Lab Order: CBC; SPEC'M 07/28/16 15:21 Test: WHITE BLOOD COUNT; Value: 16.4; Range: 4.0-10.0; Abnormal: Above high normal; Units: K/mm3; Status: F Test: RED BLOOD COUNT; Value: 3.32; Range: 4.00-5.40; Abnormal: Below low normal; Units: M/mm3; Status: F Test: HEMOGLOBIN; Value: 10.7; Range: 12.0-16.0; Abnormal: Below low normal; Units: g/dl; Status: F Test: HEMATOCRIT; Value: 32.8; Range: 36.0-47.0; Abnormal: Below low normal; Units: %; Status: F Test: MEAN CORPUSCULAR VOLUME; Value: 98.6; Range: 80.0-96.0; Abnormal: Above high normal; Units: fl; Status: F Test: MEAN CORPUSCULAR HEMOGLOBIN; Value: 32.3; Range: 27.0-33.0; Units: pg; Status: F Test: MEAN CORPUSCULAR HGB CONC; Value: 32.8; Range: 32.0-36.5; Units: g/dl; Status: F Test: RED CELL DISTRIBUTION WIDTH; Value: 18.6; Range: 11.5-14.5; Abnormal: Above high normal; Units: %; Status: F Test: PLATELET COUNT, AUTOMATED; Value: 315; Range: 150-450; Units: k/mm3; Status: F Lab Order: PT/INR; SPEC'M 07/28/16 15:21 Test: PROTHROMBIN TIME; Value: 20.7; Range: 12.3-14.5; Abnormal: Above high normal; Units: SECONDS; Status: F Test: INR; Value: 1.77; Status: F Test Note: ; THERAPUTIC HUMAN INR VALUES INDICATIONS NORMAL RANGES PROPHYLAXIS/TREATMENT OF: VENOUS THROMBOSIS 2.0-3.0 PULMONARY EMBOLISM 2.0-3.0 PREVENTION OF SYSTEMIC EMBOLISM FROM: TISSUE HEART VALVES 2.0-3.0 ACUTE MYOCARDIAL INFARCTION 2.0-3.0 VALVULAR HEART DISEASE 2.0-3.0 ATRIAL FIBRILLATION 2.0-3.0 MECHANICAL VALVES(HIGH RISK) 2.5-3.5 RECURRENT MYOCARDIAL INFARCTION 2.5-3.5 Radiology Order: CT Head Without Contrast Test: CT Head Without Contrast REASON FOR EXAMINATION: Trauma; CT HEAD WITHOUT CONTRAST:; ; HISTORY: Trauma.; ; COMPARISON: 07/17/2016; ; Areas of decreased attenuation are present in the periventricular white matter.; This represents small vessel ischemic disease. There is no intraparenchymal; hemorrhage, mass or midline shift. Calcification is present in the basal ganglia; and right cerebellum. The ventricular system and cortical sulci as well as; subarachnoid space and the posterior fossa are dilated consistent with mild; volume loss. There is no extracerebral collection. There is no fracture. The; visualized sinuses are clear.; ; IMPRESSION:; ; 1. Small vessel ischemic disease.; ; 2. Mild volume loss.; ; ; Signed by; Ankit Ba MD 07/28/2016 03:50 P; Radiology Order: Elbow, Complete Test: Elbow, Complete REASON FOR EXAMINATION: Trauma; LEFT ELBOW, FOUR VIEWS:; ; HISTORY: Trauma.; ; There is no acute fracture or dislocation. The joint space is normal in; appearance.; ; IMPRESSION:; ; There is no acute fracture or dislocation.; ; ; Signed by; Ankit Ba MD 07/28/2016 03:58 P; Radiology Order: Shoulder, Complete Test: Shoulder, Complete REASON FOR EXAMINATION: Trauma; LEFT SHOULDER:; ; Three views of the left shoulder are performed.; ; I see no acute fracture or dislocation. Prosthesis is again noted in the proximal; left humerus. There is sclerotic change and spurring of the bony glenoid. There; is narrowing and spurring at the acromioclavicular joint.; ; IMPRESSION:; No evidence of acute fracture or dislocation.; ; ; ; Unreviewed; Radiology Order: Hip,AP,LAT to include Pelvis Test: Hip,AP,LAT to include Pelvis REASON FOR EXAMINATION: Trauma; ; PELVIS AND RIGHT HIP:; ; AP view of the pelvis and two views of the right hip are performed. Patient has; upper GI series one week ago and there is residual barium in the colon which; obscures some of the pelvic osseous structures. I see no evidence of acute; fracture or dislocation of the visualized osseous structures.; ; IMPRESSION:; No evidence of acute fracture or dislocation of the visualized osseous; structures.; ; ; ; Unreviewed; Outcome: 16:04 Discharge ordered by Provider. nehal 16:41 Discharge Assessment: Patient awake, alert and oriented x 3. No cognitive and/or jo3 functional deficits noted. Patient verbalized understanding of disposition instructions. patient administered narcotics - no. The following High Risk Discharge criteria are identified: None. Discharged to home via wheelchair, with family. Condition: stable Condition: improved. Discharge instructions given to patient, Instructed on discharge instructions, follow up and referral plans. medication usage, Demonstrated understanding of instructions, medications, Pt was receptive of discharge instructions/ teaching. Prescriptions given X 1. CT Study completed. Property sent home with patient. 16:42 Patient left the ED. jo3 Signatures: Dispatcher [employer] EDMS Giovanna Paz, Head Of Housekeeping Unit lbd Erik Oneill, MECHANICAL INTERN MECHANICAL INTERN Gabriella Guan,RN RN jo3 Chester Segundo, RN RN 6 Luiz, Abigail bh4 Micki Arreola RN RN hs1 Gabriella Flores,RN RN js13 Maribell Prasad MTDD
--- NOTE | 2016-07-30 17:43 | EDDOCDS ---
Physician Documentation [facility] Name: Isidra Delacruz Age: 75 yrs Sex: Female : 1940 Arrival Date: 07/28/2016 Time: 12:53 Bed D1 Private MD: David Lee P. Disposition: 07/28/16 16:04 Discharged to Home/Self Care. Impression: Fall on same level from slipping, tripping and stumbling, Contusion of right hip, Contusion of left shoulder, Open wound of forearm - skin tear. - Condition is Stable. - Discharge Instructions: Elastic Bandage and RICE, Contusion, Skin Tear Care, Thrush, Adult, Wound Care, [id number]. - Prescriptions for Clotrimazole 10 mg Mucous Membrane Jessica - dissolve 1 Jessica by ORAL route 5 times per day for 14 days; 70 lozenge. - Medication Reconciliation, Local Pharmacy Hours form. - Follow up: David Lee; When: 4 - 5 days; Reason: Recheck today's complaints, Continuance of care. - Problem is new. - Symptoms are unchanged. Historical: - Allergies: Amoxicillin (Hives); Lisinopril (Swelling, Anaphylaxis); Oxycodone HClagitation; SULFA (SULFONAMIDES) (Hives); Temazepam (Swelling); - Home Meds: 1. Advair Diskus 250-50 mcg/dose Inhl dsdv 2 times per day 2. albuterol sulfate 2.5 mg /3 mL (0.083 %) Inhl nebu 4 times per day 3. albuterol sulfate 90 mcg/actuation Inhl aepb every 4 hours 4. alendronate 70 mg oral tab once wkly Tuesday 5. amlodipine 10 mg Oral tab 1 tab once daily 6. aspirin 81 mg Oral chew once daily 7. Calcium + Vitamin D 5oo/200 Oral twice a day 8. Cefuroxime Oral 500 mg 9. Colace 100 mg oral tab 1 cap 2 times per day takes 1 daily as needed 10. Coumadin 5 mg Oral tab once daily 11. erythromycin 5 mg/gram (0.5 %) Opht oint 6 times per day 12. ferrous sulfate 325 mg (65 mg iron) Oral cpER daily 13. furosemide 80 mg Oral tab 1 tab once daily 14. fluticasone 50 mcg/actuation nasal spsn 2 sprays once daily 15. Nitrostat 0.4 mg SL subl every 5 minutes prn 16. loratadine 10 mg Oral tab 1 tab once daily 17. gabapentin 600 mg Oral tab 1 tab bid 18. fluticasone-salmeterol 45-21 mcg/actuation inhalation HFAA 2 puffs 2 times per day 19. magnesium oxide 500 mg Oral cap nightly 20. oxybutynin chloride 15 mg Oral tr24 once daily 21. trazadone 100 mg 100 mg daily 22. trazodone 100 mg Oral tab 2 tabs nightly 23. simvastatin 10 mg Oral tab 1 tab once daily 24. prednisone 10 mg Oral tab once daily 25. polyethylene glycol 3350 17 gram/dose oral powd once daily 26. oxygen NC 2 liters continuous 27. [place] 7.5-325 mg Oral tab QID prn 28. Protonix 40 mg Oral TbEC 1 tab once daily 29. nystatin 100,000 unit/mL Oral susp 10 mL 4 times per day 30. fluoxetine 60 mg Oral tab once daily 31. Spiriva with HandiHaler 18 mcg Inhl CpDv 1 cap once daily - PMHx: Anxiety; Cancer, Breast - Left; Cancer, Breast - Right; CHF; COPD; GERD; PE; - PSHx: Mastectomy- Bilateral; Tubal ligation; Ankle Arthroplasty, Left; Shoulder Arthroplasty, Left; - Social history: Smoking status: Patient states former smoker of tobacco. No barriers to communication noted, The patient speaks fluent Estonian, Speaks appropriately for age. - Family history: Not pertinent. - : The pt / caregiver states he / she is not on anticoagulants. Home medication list is obtained from the patient, Individual Digital import data. - Exposure Risk Screening:: None identified. Vital Signs: 07/28 13:05 BP 116 / 68 (auto/); Pulse 68; Resp 18; Temp 98.6(O); Pulse Ox 97% ; Weight 82.55 kg / js13 181.99 lbs; Height 5 ft. 2 in. (157.48 cm); 16:13 BP 127 / 63 (auto/); Pulse 70; Resp 18; Temp 98.9(O); Pulse Ox 95% on R/A; jo3 13:05 Body Mass Index 33.29 (82.55 kg, 157.48 cm) js13 MDM: 14:18 CT Head Without Contrast Ordered. EDMS 14:19 CBC Ordered. EDMS 14:19 PT/INR Ordered. EDMS 14:20 Elbow, Complete Ordered. EDMS 14:20 Shoulder, Complete Ordered. EDMS 14:20 Hip,AP,LAT to include Pelvis Ordered. EDMS 15:44 Financial registration complete. gjb 15:59 CBC Reviewed. ke 15:59 PT/INR Reviewed. ke 15:59 CT Head Without Contrast Reviewed. ke 16:08 [facility] [place] was scanned into [employer] and attached to record. gjb 07/29 13:19 T-Sheet-- Draft Copy was scanned into [employer] and attached to record. gb Signatures: Dispatcher [employer] EDMS Dayami Soares, Reg Reg gb rEik Oneill, EVENT DECORATOR AND DESIGNER EVENT DECORATOR AND DESIGNER Gabriella Guan,RN RN jo3 Gabriella Flores,RN RN js13 Maribell Prasad layne The chart was reviewed and I authenticate all verbal orders and agree with the evaluation and treatment provided.Attachments: 07/28 16:08 [facility] [place] Agreement b 07/29 13:19 T-Sheet-- Draft Copy gb Chart Complete MTDD
--- NOTE | 2016-07-30 17:43 | EDDOCDS ---
Physician Documentation [facility] Name: Isidra Delacruz Age: 75 yrs Sex: Female : 1940 Arrival Date: 07/28/2016 Time: 12:53 Bed D1 Private MD: David Lee P. Disposition: 07/28/16 16:04 Discharged to Home/Self Care. Impression: Fall on same level from slipping, tripping and stumbling, Contusion of right hip, Contusion of left shoulder, Open wound of forearm - skin tear. - Condition is Stable. - Discharge Instructions: Elastic Bandage and RICE, Contusion, Skin Tear Care, Thrush, Adult, Wound Care, [id number]. - Prescriptions for Clotrimazole 10 mg Mucous Membrane Jessica - dissolve 1 Jessica by ORAL route 5 times per day for 14 days; 70 lozenge. - Medication Reconciliation, Local Pharmacy Hours form. - Follow up: David Lee; When: 4 - 5 days; Reason: Recheck today's complaints, Continuance of care. - Problem is new. - Symptoms are unchanged. Historical: - Allergies: Amoxicillin (Hives); Lisinopril (Swelling, Anaphylaxis); Oxycodone HClagitation; SULFA (SULFONAMIDES) (Hives); Temazepam (Swelling); - Home Meds: 1. Advair Diskus 250-50 mcg/dose Inhl dsdv 2 times per day 2. albuterol sulfate 2.5 mg /3 mL (0.083 %) Inhl nebu 4 times per day 3. albuterol sulfate 90 mcg/actuation Inhl aepb every 4 hours 4. alendronate 70 mg oral tab once wkly Tuesday 5. amlodipine 10 mg Oral tab 1 tab once daily 6. aspirin 81 mg Oral chew once daily 7. Calcium + Vitamin D 5oo/200 Oral twice a day 8. Cefuroxime Oral 500 mg 9. Colace 100 mg oral tab 1 cap 2 times per day takes 1 daily as needed 10. Coumadin 5 mg Oral tab once daily 11. erythromycin 5 mg/gram (0.5 %) Opht oint 6 times per day 12. ferrous sulfate 325 mg (65 mg iron) Oral cpER daily 13. furosemide 80 mg Oral tab 1 tab once daily 14. fluticasone 50 mcg/actuation nasal spsn 2 sprays once daily 15. Nitrostat 0.4 mg SL subl every 5 minutes prn 16. loratadine 10 mg Oral tab 1 tab once daily 17. gabapentin 600 mg Oral tab 1 tab bid 18. fluticasone-salmeterol 45-21 mcg/actuation inhalation HFAA 2 puffs 2 times per day 19. magnesium oxide 500 mg Oral cap nightly 20. oxybutynin chloride 15 mg Oral tr24 once daily 21. trazadone 100 mg 100 mg daily 22. trazodone 100 mg Oral tab 2 tabs nightly 23. simvastatin 10 mg Oral tab 1 tab once daily 24. prednisone 10 mg Oral tab once daily 25. polyethylene glycol 3350 17 gram/dose oral powd once daily 26. oxygen [place] 2 liters continuous 27. [place] 7.5-325 mg Oral tab QID prn 28. Protonix 40 mg Oral TbEC 1 tab once daily 29. nystatin 100,000 unit/mL Oral susp 10 mL 4 times per day 30. fluoxetine 60 mg Oral tab once daily 31. Spiriva with HandiHaler 18 mcg Inhl CpDv 1 cap once daily - PMHx: Anxiety; Cancer, Breast - Left; Cancer, Breast - Right; CHF; COPD; GERD; PE; - PSHx: Mastectomy- Bilateral; Tubal ligation; Ankle Arthroplasty, Left; Shoulder Arthroplasty, Left; - Social history: Smoking status: Patient states former smoker of tobacco. No barriers to communication noted, The patient speaks fluent Ukrainian, Speaks appropriately for age. - Family history: Not pertinent. - : The pt / caregiver states he / she is not on anticoagulants. Home medication list is obtained from the patient, [employer] import data. - Exposure Risk Screening:: None identified. Vital Signs: 07/28 13:05 BP 116 / 68 (auto/); Pulse 68; Resp 18; Temp 98.6(O); Pulse Ox 97% ; Weight 82.55 kg / js13 181.99 lbs; Height 5 ft. 2 in. (157.48 cm); 16:13 BP 127 / 63 (auto/); Pulse 70; Resp 18; Temp 98.9(O); Pulse Ox 95% on R/A; jo3 13:05 Body Mass Index 33.29 (82.55 kg, 157.48 cm) js13 MDM: 14:18 CT Head Without Contrast Ordered. EDMS 14:19 CBC Ordered. EDMS 14:19 PT/INR Ordered. EDMS 14:20 Elbow, Complete Ordered. EDMS 14:20 Shoulder, Complete Ordered. EDMS 14:20 Hip,AP,LAT to include Pelvis Ordered. EDMS 15:44 Financial registration complete. gjb 15:59 CBC Reviewed. ke 15:59 PT/INR Reviewed. ke 15:59 CT Head Without Contrast Reviewed. ke 16:08 [facility] [place] [facility] [place] Agreement was scanned into [employer] and attached to record. gjb 07/29 13:19 T-Sheet-- Draft Copy was scanned into [employer] and attached to record. gb Signatures: Dispatcher [employer] EDMS Dayami Soares, Reg Reg gb Erik Oneill, FEEDMOBILE DRIVER FEEDMOBILE DRIVER Gabriella Guan,RN RN jo3 Gabriella Flores,RN RN js13 Maribell Prasad layne The chart was reviewed and I authenticate all verbal orders and agree with the evaluation and treatment provided.Attachments: 07/28 16:08 [facility] [place] [facility] [place] Payment Agreement b 07/29 13:19 T-Sheet-- Draft Copy gb Chart Complete MTDD
--- NOTE | 2016-07-30 17:43 | EDDOCDS ---
Nurse's Notes [facility] Name: Isidra Delacruz Age: 75 yrs Sex: Female : 1940 Arrival Date: 07/28/2016 Time: 12:53 Bed D1 Private MD: David Lee P. Diagnosis: Fall on same level from slipping, tripping and stumbling;Contusion of right hip;Contusion of left shoulder;Open wound of forearm-skin tear Presentation: 07/28 13:00 Presenting complaint: EMS states: at home putting away ironing board. Patient tripped hs1 and has skin tear to entire left arm. Patient also hit head and on coumadin. 13:01 Presenting complaint: EMS states: Pt was admitted for two week and released last week jo3 for respiratory issues. NSR on monitor and FSBS was 244. Suicide/Homicide risk assessment- the patient denies having any suicidal and/or homicidal ideations and does not present with any other emotional, behavioral or mental health complaints. 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 Transition of care: patient was not received from another setting of care. 13:01 Method Of Arrival: Ambulance jo3 13:29 Adult Sepsis Screening: The patient does not have new or worsening altered mentation. js13 Patient's respiratory rate is less than 22. Systolic blood pressure is greater than 100. Patient has a qSOFA score of 0- Negative Sepsis Screen. 13:29 Acuity: GALA Level 3 js13 Triage Assessment: 13:25 General: Appears in no apparent distress, Behavior is appropriate for age, cooperative, js13 pleasant. Neurological: Level of Consciousness is awake, alert, Oriented to person, place, time. Cardiovascular: No deficits noted. Respiratory: Airway is patent Respiratory effort is even, unlabored, Breath sounds are coarse bilaterally. Derm: large skin tear to left upper and lower arm. Covered with abd pad and wrapped with kerlix. Musculoskeletal: Pt reports pain to right anterior chest, right shoulder and right hip. Historical: - Allergies: Amoxicillin (Hives); Lisinopril (Swelling, Anaphylaxis); Oxycodone HClagitation; SULFA (SULFONAMIDES) (Hives); Temazepam (Swelling); - Home Meds: 1. Advair Diskus 250-50 mcg/dose Inhl dsdv 2 times per day 2. albuterol sulfate 2.5 mg /3 mL (0.083 %) Inhl nebu 4 times per day 3. albuterol sulfate 90 mcg/actuation Inhl aepb every 4 hours 4. alendronate 70 mg oral tab once wkly Tuesday 5. amlodipine 10 mg Oral tab 1 tab once daily 6. aspirin 81 mg Oral chew once daily 7. Calcium + Vitamin D 5oo/200 Oral twice a day 8. Cefuroxime Oral 500 mg 9. Colace 100 mg oral tab 1 cap 2 times per day takes 1 daily as needed 10. Coumadin 5 mg Oral tab once daily 11. erythromycin 5 mg/gram (0.5 %) Opht oint 6 times per day 12. ferrous sulfate 325 mg (65 mg iron) Oral cpER daily 13. furosemide 80 mg Oral tab 1 tab once daily 14. fluticasone 50 mcg/actuation nasal spsn 2 sprays once daily 15. Nitrostat 0.4 mg SL subl every 5 minutes prn 16. loratadine 10 mg Oral tab 1 tab once daily 17. gabapentin 600 mg Oral tab 1 tab bid 18. fluticasone-salmeterol 45-21 mcg/actuation inhalation HFAA 2 puffs 2 times per day 19. magnesium oxide 500 mg Oral cap nightly 20. oxybutynin chloride 15 mg Oral tr24 once daily 21. trazadone 100 mg 100 mg daily 22. trazodone 100 mg Oral tab 2 tabs nightly 23. simvastatin 10 mg Oral tab 1 tab once daily 24. prednisone 10 mg Oral tab once daily 25. polyethylene glycol 3350 17 gram/dose oral powd once daily 26. oxygen NC 2 liters continuous 27. Beverly 7.5-325 mg Oral tab QID prn 28. Protonix 40 mg Oral TbEC 1 tab once daily 29. nystatin 100,000 unit/mL Oral susp 10 mL 4 times per day 30. fluoxetine 60 mg Oral tab once daily 31. Spiriva with HandiHaler 18 mcg Inhl CpDv 1 cap once daily - PMHx: Anxiety; Cancer, Breast - Left; Cancer, Breast - Right; CHF; COPD; GERD; PE; - PSHx: Mastectomy- Bilateral; Tubal ligation; Ankle Arthroplasty, Left; Shoulder Arthroplasty, Left; - Social history: Smoking status: Patient states former smoker of tobacco. No barriers to communication noted, The patient speaks fluent Congolese, Speaks appropriately for age. - Family history: Not pertinent. - : The pt / caregiver states he / she is not on anticoagulants. Home medication list is obtained from the patient, [employer] import data. - Exposure Risk Screening:: None identified. Screenin:37 Screening information is obtained from the patient. Fall risk: No risks identified. jo3 Assistance ADL's: requires no assistance with activities of daily living. Abuse/DV Screen: The patient / caregiver reports he/she is: not in a situation that causes fear, pain or injury. Nutritional screening: No deficits noted. Advance Directives: There is no active DNR order. home support is adequate. Assessment: 13:10 Reassessment: See triage assessment . jo3 14:00 Reassessment: No significant changes noted. respirations unlabored, deep and regular. jo3 Skin is pink, warm and dry. Dressing to left arm is dry and intact. Awaiting visit from ED provider. Aware of plan of care . 14:45 Reassessment: Pt is in radiology at this time. Family in room . jo3 15:34 General: Appears in no apparent distress, comfortable, Behavior is appropriate for age, jo3 cooperative, pleasant. General: Family at bedside. awaiting results at this time. Aware of plan of care . Neurological: Level of Consciousness is awake, alert, Oriented to person, place, time. Cardiovascular: No deficits noted. Respiratory: Airway is patent Respiratory effort is even, unlabored. 16:20 General: Appears in no apparent distress, comfortable, Behavior is appropriate for age, jo3 cooperative. General: Discharged at this time . Neurological: Level of Consciousness is awake, alert, Oriented to person, place, time. Respiratory: Airway is patent Respiratory effort is even, unlabored. Vital Signs: 13:05 BP 116 / 68 (auto/); Pulse 68; Resp 18; Temp 98.6(O); Pulse Ox 97% ; Weight 82.55 kg; js13 Height 5 ft. 2 in. (157.48 cm); 16:13 BP 127 / 63 (auto/); Pulse 70; Resp 18; Temp 98.9(O); Pulse Ox 95% on R/A; jo3 13:05 Body Mass Index 33.29 (82.55 kg, 157.48 cm) js13 ED Course: 12:54 Patient visited by Giovanna Paz, Team Facilitator. lbd 12:54 David Lee is Private Physician. lbd 12:54 Patient moved to Waiting lbd 12:54 Patient moved to 13 lbd 13:30 Patient visited by Gabriella Flores,LEYDA. js13 13:30 Triage Initiated js13 14:11 [facility] ke 14:11 Patient visited by Erik Oneill FNP. ke 14:11 Patient visited by Erik Oneill FNP. ke 14:44 Patient moved to Radiology bh4 15:08 Patient moved to 13 bh4 15:12 Patient visited by Erik Oneill FNP. ke 15:28 PT/INR Sent. jo3 15:28 CBC Sent. jo3 15:37 The patient / caregiver is instructed regarding the plan of care and ED course. jo3 15:41 Patient visited by Gabriella Foss RN. jo3 15:49 CT Head Without Contrast Returned. EDMS 16:02 David Lee is Referral Physician. ke 16:08 [facility] Payment Agreement was scanned into [employer] and attached to record. gjb 16:31 Patient moved to D1 ml6 16:36 CT Head Without Contrast Returned. EDMS 16:36 Shoulder, Complete Returned. EDMS 16:36 Elbow, Complete Returned. EDMS 16:36 Hip,AP,LAT to include Pelvis Returned. EDMS 16:41 No IV's were initiated during this patient's visit. No procedures done that require jo3 assistance. 07/29 00:07 Patient visited by Aryan Zuniga PSA. cl 13:19 T-Sheet-- Draft Copy was scanned into [employer] and attached to record. gb Order Results: Lab Order: CBC; SPEC'M 07/28/16 15:21 Test: WHITE BLOOD COUNT; Value: 16.4; Range: 4.0-10.0; Abnormal: Above high normal; Units: K/mm3; Status: F Test: RED BLOOD COUNT; Value: 3.32; Range: 4.00-5.40; Abnormal: Below low normal; Units: M/mm3; Status: F Test: HEMOGLOBIN; Value: 10.7; Range: 12.0-16.0; Abnormal: Below low normal; Units: g/dl; Status: F Test: HEMATOCRIT; Value: 32.8; Range: 36.0-47.0; Abnormal: Below low normal; Units: %; Status: F Test: MEAN CORPUSCULAR VOLUME; Value: 98.6; Range: 80.0-96.0; Abnormal: Above high normal; Units: fl; Status: F Test: MEAN CORPUSCULAR HEMOGLOBIN; Value: 32.3; Range: 27.0-33.0; Units: pg; Status: F Test: MEAN CORPUSCULAR HGB CONC; Value: 32.8; Range: 32.0-36.5; Units: g/dl; Status: F Test: RED CELL DISTRIBUTION WIDTH; Value: 18.6; Range: 11.5-14.5; Abnormal: Above high normal; Units: %; Status: F Test: PLATELET COUNT, AUTOMATED; Value: 315; Range: 150-450; Units: k/mm3; Status: F Lab Order: PT/INR; SPEC'M 07/28/16 15:21 Test: PROTHROMBIN TIME; Value: 20.7; Range: 12.3-14.5; Abnormal: Above high normal; Units: SECONDS; Status: F Test: INR; Value: 1.77; Status: F Test Note: ; THERAPUTIC HUMAN INR VALUES INDICATIONS NORMAL RANGES PROPHYLAXIS/TREATMENT OF: VENOUS THROMBOSIS 2.0-3.0 PULMONARY EMBOLISM 2.0-3.0 PREVENTION OF SYSTEMIC EMBOLISM FROM: TISSUE HEART VALVES 2.0-3.0 ACUTE MYOCARDIAL INFARCTION 2.0-3.0 VALVULAR HEART DISEASE 2.0-3.0 ATRIAL FIBRILLATION 2.0-3.0 MECHANICAL VALVES(HIGH RISK) 2.5-3.5 RECURRENT MYOCARDIAL INFARCTION 2.5-3.5 Radiology Order: CT Head Without Contrast Test: CT Head Without Contrast REASON FOR EXAMINATION: Trauma; CT HEAD WITHOUT CONTRAST:; ; HISTORY: Trauma.; ; COMPARISON: 07/17/2016; ; Areas of decreased attenuation are present in the periventricular white matter.; This represents small vessel ischemic disease. There is no intraparenchymal; hemorrhage, mass or midline shift. Calcification is present in the basal ganglia; and right cerebellum. The ventricular system and cortical sulci as well as; subarachnoid space and the posterior fossa are dilated consistent with mild; volume loss. There is no extracerebral collection. There is no fracture. The; visualized sinuses are clear.; ; IMPRESSION:; ; 1. Small vessel ischemic disease.; ; 2. Mild volume loss.; ; ; Signed by; Ankit Ba MD 07/28/2016 03:50 P; Radiology Order: Elbow, Complete Test: Elbow, Complete REASON FOR EXAMINATION: Trauma; LEFT ELBOW, FOUR VIEWS:; ; HISTORY: Trauma.; ; There is no acute fracture or dislocation. The joint space is normal in; appearance.; ; IMPRESSION:; ; There is no acute fracture or dislocation.; ; ; Signed by; Ankit Ba MD 07/28/2016 03:58 P; Radiology Order: Shoulder, Complete Test: Shoulder, Complete REASON FOR EXAMINATION: Trauma; LEFT SHOULDER:; ; Three views of the left shoulder are performed.; ; I see no acute fracture or dislocation. Prosthesis is again noted in the proximal; left humerus. There is sclerotic change and spurring of the bony glenoid. There; is narrowing and spurring at the acromioclavicular joint.; ; IMPRESSION:; ; No evidence of acute fracture or dislocation.; ; ; Signed by; Juvenal Laird MD 07/29/2016 09:48 A; Radiology Order: Hip,AP,LAT to include Pelvis Test: Hip,AP,LAT to include Pelvis REASON FOR EXAMINATION: Trauma; PELVIS AND RIGHT HIP:; ; AP view of the pelvis and two views of the right hip are performed. Patient has; upper GI series one week ago and there is residual barium in the colon which; obscures some of the pelvic osseous structures. I see no evidence of acute; fracture or dislocation of the visualized osseous structures.; ; IMPRESSION:; ; No evidence of acute fracture or dislocation of the visualized osseous; structures.; ; ; Signed by; Juvenal Laird MD 07/29/2016 09:49 A; Outcome: 07/28 16:04 Discharge ordered by Provider. ke 16:41 Discharge Assessment: Patient awake, alert and oriented x 3. No cognitive and/or jo3 functional deficits noted. Patient verbalized understanding of disposition instructions. patient administered narcotics - no. The following High Risk Discharge criteria are identified: None. Discharged to home via wheelchair, with family. Condition: stable Condition: improved. Discharge instructions given to patient, Instructed on discharge instructions, follow up and referral plans. medication usage, Demonstrated understanding of instructions, medications, Pt was receptive of discharge instructions/ teaching. Prescriptions given X 1. CT Study completed. Property sent home with patient. 16:42 Patient left the ED. jo3 Signatures: Dispatcher [employer] EDMS Giovanna Paz, Team Facilitator Unit lbd Efrain, Aryan, AURELIA PSA cl Dayami Soares, Reg Reg gb Erik Oneill, COOKER CASING COOKER CASING Gabriella Guan,RN RN jo3 Chester Segundo, RN RN [address], [place] [id number] Micki Arreola RN RN hs1 Gabriella Flores,RN RN js13 Maribell Prasad Chart Complete MTDD
== END 2016-07-28 16:42 | disposition home or self-care (01) ==
LOC: M ED 12:53
DX: S70.01XA Contusion of right hip, initial encounter (principal); S40.012A Contusion of left shoulder, initial encounter; S51.809A Unspecified open wound of unspecified forearm, initial encounter; W01.0XXA Fall on same level from slipping, tripping and stumbling without subsequent striking against object, initial encounter; Y92.019 Unspecified place in single-family (private) house as the place of occurrence of the external cause; Y93.9 Activity, unspecified; Y99.9 Unspecified external cause status; F41.9 Anxiety disorder, unspecified; Z85.3 Personal history of malignant neoplasm of breast; I50.9 Heart failure, unspecified; J44.9 Chronic obstructive pulmonary disease, unspecified; K21.9 Gastro-esophageal reflux disease without esophagitis; I82.90 Acute embolism and thrombosis of unspecified vein; Z90.13 Acquired absence of bilateral breasts and nipples; Z96.662 Presence of left artificial ankle joint; Z96.612 Presence of left artificial shoulder joint; Z87.891 Personal history of nicotine dependence; Z79.01 Long term (current) use of anticoagulants; Z99.81 Dependence on supplemental oxygen; Z79.82 Long term (current) use of aspirin; Z79.899 Other long term (current) drug therapy; Z88.0 Allergy status to penicillin; Z88.8 Allergy status to other drugs, medicaments and biological substances; Z88.5 Allergy status to narcotic agent; Z88.2 Allergy status to sulfonamides

== ENCOUNTER → 2016-08-03 | Outpatient (CLI) | payer MEDICARE, MEDICAID ==
[2016-08-03 13:09] LABS: BASO % 0.2 % (0.0-1.0); EOS % 0.3 % (0.0-3.0); LARGE UNSTAINED CELL # 0.2 K/mm3 (0.0-0.4); LARGE UNSTAINED CELL % 1.5 % (0.0-4.0); LYMPH # 0.6 K/mm3 (1.5-4.5); LYMPH % 5.1 % (24.0-44.0); MEAN CORPUSCULAR HEMOGLOBIN 30.6 pg (27.0-33.0); MEAN CORPUSCULAR HGB CONC 31.9 g/dl (32.0-36.5); MEAN CORPUSCULAR VOLUME 95.8 fl (80.0-96.0); MONO # 0.3 K/mm3 (0.0-0.8); MONO % 2.9 % (0.0-5.0); NEUTROPHILS # 10.1 K/mm3 (1.8-7.7); NEUTROPHILS % 90.1 % (36.0-66.0); PLATELET COUNT, AUTOMATED 309 k/mm3 (150-450); RED CELL DISTRIBUTION WIDTH 17.7 % (11.5-14.5); WHITE BLOOD COUNT 11.2 K/mm3 (4.0-10.0)
[2016-08-03 13:27] LABS: ALBUMIN 3.3 GM/DL (3.2-5.2); ALBUMIN/GLOBULIN RATIO 1.03 (1.00-1.93); BILIRUBIN,TOTAL 0.7 MG/DL (0.2-1.0); CALCIUM LEVEL 9.3 MG/DL (8.8-10.2); CREATININE FOR GFR 2.03 MG/DL (0.55-1.02); GLOMERULAR FILTRATION RATE 25.3 (>39); POTASSIUM SERUM 4.6 MEQ/L (3.5-5.1); TOTAL PROTEIN 6.5 GM/DL (6.4-8.2)
[2016-08-03 15:39] LABS: INR 6.23
== END ==
LOC: M LAB 12:14
PROVIDERS: ATTEND Emergency Medicine
DX: Z51.81 Encounter for therapeutic drug level monitoring (principal); Z79.01 Long term (current) use of anticoagulants; D50.9 Iron deficiency anemia, unspecified; I95.2 Hypotension due to drugs

== ENCOUNTER 2016-08-11 16:29 | Inpatient (IN) | payer MEDICARE, MEDICAID ==
[~2016-08-11] VITALS: Ht 157.5 cm; Wt 79.7 kg
[2016-08-11] MEDS: DOCUSATE SODIUM 100 MG CAP PO SCH (00:15)
[2016-08-11] MEDS: NS 1,000 ML IV SCH (00:17)
[2016-08-11 17:52] LABS: DIFF SLIDE NUMBER 297; MEAN CORPUSCULAR HGB CONC 32.1 g/dl (32.0-36.5); MEAN CORPUSCULAR VOLUME 96.6 fl (80.0-96.0); PLATELET COUNT, AUTOMATED 354 k/mm3 (150-450); RED CELL DISTRIBUTION WIDTH 19.1 % (11.5-14.5); WHITE BLOOD COUNT 12.9 K/mm3 (4.0-10.0)
[2016-08-11 17:56] LABS: ANION GAP 13 MEQ/L (8-16); BLOOD UREA NITROGEN 56 MG/DL (7-18); CALCIUM LEVEL 8.3 MG/DL (8.8-10.2); CARBON DIOXIDE LEVEL 28 MEQ/L (21-32); CHLORIDE LEVEL 95 MEQ/L (98-107); CREATININE FOR GFR 2.12 MG/DL (0.55-1.02); GLUCOSE, FASTING 255 MG/DL (83-110); POTASSIUM SERUM 4.9 MEQ/L (3.5-5.1); SODIUM LEVEL 136 MEQ/L (136-145)
[2016-08-11] MEDS ORDERED: IPRATROPIUM 0.5MG/ALBUTEROL 2.5MG INH SOL UD 3ML (DUONEB)(J7620) NEB ONE (18:15)
[2016-08-11 18:20] LABS: INR 13.6
[2016-08-11 18:43] LABS: BANDS 3 % (< 11); CORRECTED WHITE BLOOD COUNT 12.2 K/mm3; NUCLEATED RED BLOOD CELL 6 % (0-0)
[2016-08-11 18:44] LABS: POLYCHROMASIA 2+
[2016-08-11 18:45] LABS: ANISOCYTOSIS 2+
[2016-08-11] MEDS ORDERED: PANTOPRAZOLE SODIUM 40 MG in D5W MINI-BAG PLUS 50 ML IV SCH (18:45)
[2016-08-11] MEDS ORDERED: PANTOPRAZOLE 40MG INJ (PROTONIX) (C9113) IV ONE (18:45)
[2016-08-11] MEDS ORDERED: PHYTONADIONE 10MG/ML INJECTION (J3430) SC ONE (19:00)
[2016-08-11] MEDS ORDERED: PRED20TA PO (19:44)
[2016-08-11] MEDS ORDERED: WARF-18 PO (19:44)
[2016-08-11] MEDS ORDERED: AMLO5TAB2 PO (19:44)
[2016-08-11] MEDS ORDERED: FURO40TA2 PO (19:44)
--- NOTE | 2016-08-11 19:50 | ECGEPIP ---
Stationary ECG Study [facility] - ED Test Date: 2016-08-11 Pat Name: MONSERRAT VELASCO Department: Room: - Gender: F Behavioral [employer] Department Chair: faiza : 1940 Requested By: TERRELL Grajeda Order Number: [id number] Reading MD: Amilcar Eduardo Measurements Intervals [place] Rate: 92 P: 18 VT: 136 QRS: 13 QRSD: 86 T: -1 QT: 378 QTc: 469 Interpretive Statements SINUS RHYTHM WITH FREQUENT SUPRAVENTRICULAR PREMATURE COMPLEXES NONSPECIFIC ST & T-WAVE ABNORMALITY ABNORMAL RHYTHM ECG Electronically Signed On 08-11-2016 19:50:05 EST by Amilcar Eduardo
[2016-08-11 22:34] VITALS: BP 112/73
[2016-08-11 22:54] VITALS: BP 125/60
[2016-08-11 23:10] VITALS: BP 132/63
[2016-08-11] MEDS ORDERED: ANEXSIA, NORCO 7.5MG/325MG TABLET(HYDROCODONE/APAP) PO PRN (23:30)
[2016-08-11] MEDS ORDERED: ALBUTEROL 90 MCG/ACT 8GM HFA INHALER INH PRN (23:30)
[2016-08-11] MEDS: ADVAIR DISKUS 250/50 INH PWD INH SCH (23:42)
[2016-08-11 23:59] VITALS: BP 142/68
[2016-08-12] VITALS (26 sets, daily range): BP systolic 95–191; BP diastolic 49–97
[2016-08-12] MEDS: traZODone 100 MG TAB PO SCH ×2 (00:38→21:18)
[2016-08-12] MEDS: SIMVASTATIN 10 MG TAB PO SCH ×2 (00:39→21:18)
[2016-08-12] MEDS: LORATADINE 10 MG TAB PO SCH ×2 (00:39→21:18)
[2016-08-12] MEDS: GABAPENTIN 300 MG CAP PO SCH ×3 (00:39→21:18)
[2016-08-12] MEDS: FLUTICASONE PROP 0.05% NASAL SPRAY 16 GM (FLONASE) SCH ×3 (00:39→21:19)
--- NOTE | 2016-08-12 03:26 | HPE ---
DATE OF ADMISSION: 08/11/2016 REASON FOR ADMISSION: Shortness of breath and black tarry stools. HISTORY OF PRESENT ILLNESS: The patient is a 76-year-old female past medical history significant for PE on Coumadin, COPD on two liters nasal cannula and anxiety, congestive heart failure, diastolic dysfunction and gastroesophageal reflux disease presented to the emergency room after nurse came to visit her today and checked her INR and found it to be elevated. The patient was also complaining of shortness of breath since Tuesday and has gotten progressively worse. She stated that her daughter has also noticed that she has been having dark tarry stools for the past few days but has gotten worse this morning. Her INR was found to be 13. She was sent to the emergency room. In the emergency room, the patient's hemoglobin was found to be 6.1, INR of 13.6. She was given 5 mg of vitamin K and FFP as well as blood were ordered and the patient was admitted under hospitalist service. REVIEW OF SYSTEMS: The patient denies any chest pain complaining of shortness of breath but has improved since she has been here and started on oxygen therapy. Complaining of black tarry stool. Denies any bright red blood in the stool or vomiting any blood. Denies any dizziness or lightheadedness. No other symptoms. 12-point review of systems was obtained. PAST MEDICAL HISTORY: Significant for history of PE, COPD on two liters, anxiety, congestive heart failure, diastolic dysfunction and gastroesophageal reflux disease. PAST SURGICAL HISTORY: Significant for bilateral mastectomy, tubal ligation, ankle arthroplasty, left shoulder arthroplasty, left ankle arthroplasty, and IVC filter replacement. ALLERGIES: The patient is allergic to AMOXICILLIN, LISINOPRIL, OXYCODONE, PENICILLIN, SULFA DRUGS and TEMAZEPAM. SOCIAL HISTORY: The patient denies any drinking. She is a former smoker quit five years ago. Lives at home with her daughter, but has a nurse that comes by three times a week. FAMILY HISTORY: Noncontributory. HOME MEDICATIONS: Include - Young Harris one tablet every six hours as needed for pain - Ventolin two puffs inhaled every four hours as needed for shortness of breath - albuterol ipratropium one solution inhaled every four hours as needed shortness of breath - amlodipine 5 mg by mouth daily - aspirin 81 mg by mouth daily - calcium one tablet by mouth twice a day - Colace 100 mg by mouth twice a day - ferrous sulfate 325 mg by mouth daily - fluoxetine 60 mg by mouth daily - furosemide 40 mg by mouth daily - gabapentin 300 by mouth twice a day - Claritin 10 mg by mouth at bedtime - magnesium 500 mg by mouth at bedtime - nitroglycerin 0.4 mg sublingually for chest pain - MiraLax 17 grams by mouth daily - prednisone 20 mg by mouth daily - Advair discus one puff inhaled twice a day - simvastatin 10 mg at bedtime - trazodone 2 mg by mouth at bedtime - Coumadin 2.5 mg by mouth at bedtime PHYSICAL FINDINGS: VITALS: On admission, pulse ox 96% on room air. Blood pressure 126/64, temperature 97.5, heart rate 104, respiratory rate 24. HEENT: Pupils equal, round, reactive to light and accommodation. NECK: Supple. No jugular venous distention. LUNGS: Clear to auscultation bilaterally. ABDOMEN: Soft, nontender, nondistended. EXTREMITIES: No clubbing, cyanosis or edema. NEURO: Cranial nerves II-XII grossly intact. No focal deficits. CARDIAC: Regular rate and rhythm. No murmurs appreciated. LABORATORY FINDINGS: WBC 12.9, hemoglobin 6.1, hematocrit 19.1, platelet count 354, PT 100.6, INR 13.68, APTT 101.2. Sodium 136, potassium 4.9, chloride 95, BUN 56, creatinine 2.12, troponin less than 0.02, BNP 76.3. ASSESSMENT AND PLAN: 1. Anemia secondary to GI losses. The patient was found to have elevated INR with black tarry stools, hemoglobin of 6.1. We will transfuse four units of packed RBCs. Recheck hemoglobin every six hours. 2. Supratherapeutic INR. The patient is on Coumadin for PE. Her INR was found to be 13. She was given one dose of vitamin K in the emergency room and one FFP was ordered. We will transfuse that as well as four units of packed RBCs and recheck INR in the morning. 3. Shortness of breath likely secondary to anemia. 4. Hamto-ne-occuhns kidney disease. The patient's baseline creatinine is around 1.6, currently is 2.12, likely secondary to prerenal secondary to anemia. 5. History of anemia. The patient denies having a colonoscopy. She did have an EGD for food bolus in the recent past. We will defer to morning team once patient is hemodynamically stable and hemoglobin has improved to consult gastroenterology for possible scoping 6. History of COPD on two liters nasal cannula. Will continue oxygen saturation to keep oxygen saturation between 88 and 92. 7. History of anxiety. 8. History of congestive heart failure with diastolic dysfunction, EF of 65%. 9. History of gastroesophageal reflux disease. 10. DVT prophylaxis. The patient does not need any DVT prophylaxis at this time due to supratherapeutic INR.
[2016-08-12 06:07] LABS: INR 2.43
[2016-08-12 06:11] LABS: BASO % 0.4 % (0.0-1.0); EOS % 0.2 % (0.0-3.0); LARGE UNSTAINED CELL # 0.4 K/mm3 (0.0-0.4); LARGE UNSTAINED CELL % 3.4 % (0.0-4.0); LYMPH # 1.9 K/mm3 (1.5-4.5); LYMPH % 18.6 % (24.0-44.0); MEAN CORPUSCULAR HEMOGLOBIN 29.7 pg (27.0-33.0); MEAN CORPUSCULAR HGB CONC 33.1 g/dl (32.0-36.5); MONO # 0.4 K/mm3 (0.0-0.8); MONO % 4.1 % (0.0-5.0); NEUTROPHILS # 7.6 K/mm3 (1.8-7.7); NEUTROPHILS % 73.2 % (36.0-66.0); RED CELL DISTRIBUTION WIDTH 19.8 % (11.5-14.5); WHITE BLOOD COUNT 10.4 K/mm3 (4.0-10.0)
[2016-08-12 06:17] LABS: MEAN CORPUSCULAR VOLUME 89.6 fl (80.0-96.0); PLATELET COUNT, AUTOMATED 244 k/mm3 (150-450)
[2016-08-12 06:21] LABS: ALBUMIN 2.4 GM/DL (3.2-5.2); ALBUMIN/GLOBULIN RATIO 0.92 (1.00-1.93); BILIRUBIN,TOTAL 0.5 MG/DL (0.2-1.0); CALCIUM LEVEL 7.8 MG/DL (8.8-10.2); CREATININE FOR GFR 2.06 MG/DL (0.55-1.02); GLOMERULAR FILTRATION RATE 24.8 (>39); MAGNESIUM LEVEL 2.3 MG/DL (1.8-2.4)
[2016-08-12] MEDS: ADVAIR DISKUS 250/50 INH PWD INH SCH ×2 (07:16→21:37)
[2016-08-12] MEDS: TIOTROPIUM INHALER/CAPSULE (SPIRIVA) INH SCH (07:16)
--- NOTE | 2016-08-12 07:19 | REP ---
CHEST AP LATERAL: 08/11/2016. Clinical history: Chest pain. Comparison: Chest x-ray 07/16/2016, 07/06/2016, CT chest 07/19/2016. Findings: Lungs are mildly hyperinflated as before. There is some underlying interstitial fibrotic change. Lingular fibrotic or atelectatic change again noted at the left base anteriorly with the right base linear atelectatic changes cleared since the previous study. There is no infiltrate, effusion, cardiomegaly or edema. The aorta is calcified at the arch, somewhat tortuous but without aneurysm. Airway intact. No mediastinal or hilar mass. There are degenerative changes throughout the spine without acute compression deformity. The patient has had a left shoulder arthroplasty and the right shoulder shows degenerative changes. Impression: 1. Some hyperinflation with COPD and fibrotic changes with chronic fibroatelectatic change in the inferior lingula without cardiomegaly, edema, effusion or acute infiltrate. 2. Prior left shoulder arthroplasty and incidental note made of clips in the axilla from prior left axillary node dissection. Signed by Tad Tucker MD 08/12/2016 04:20 P
[2016-08-12] MEDS ORDERED: PANTOPRAZOLE 40MG TAB (PROTONIX) PO SCH (09:00)
[2016-08-12] MEDS: amLODIPine 5 MG TAB PO SCH (10:04)
[2016-08-12] MEDS: MIRALAX *UNIT DOSE* 17GM PACKET PO SCH (10:04)
[2016-08-12] MEDS: DOCUSATE SODIUM 100 MG CAP PO SCH ×2 (10:04→21:18)
[2016-08-12] MEDS: FLUoxetine 20 MG CAP PO SCH (10:04)
[2016-08-12] MEDS: ASPIRIN 81 MG ENTERIC TAB PO SCH (10:05)
[2016-08-12] MEDS: PANTOPRAZOLE 40MG INJ (PROTONIX) (C9113) IV SCH ×2 (10:05→21:18)
[2016-08-12] MEDS: FERROUS SULFATE 325MG TAB PO SCH (10:05)
[2016-08-12] MEDS: predniSONE 20 MG TAB PO SCH (10:05)
[2016-08-12] MEDS ORDERED: MAALOX 30 ML SUSP *UDC PO ONE (11:45)
[2016-08-12] MEDS: NS 1,000 ML IV SCH (12:34)
[2016-08-12] MEDS: SUCRALFATE 1 GM TAB PO SCH ×2 (14:00→21:18)
[2016-08-12] MEDS ORDERED: GLUCAGON FOR INJ 1 MG VIAL (J1610) SC PRN (21:00)
[2016-08-12] MEDS ORDERED: GLUCOSE 4 GM CHEW TABLET PO PRN (21:00)
[2016-08-12] MEDS ORDERED: DEXTROSE 50% 50 ML SYRINGE IV PRN (21:00)
[2016-08-12] MEDS ORDERED: IPRATROPIUM 0.5MG/ALBUTEROL 2.5MG INH SOL UD 3ML (DUONEB)(J7620) NEB PRN (21:00)
--- NOTE | 2016-08-12 21:04 | IPNPDOC ---
Subjective Date Seen The patient was seen on 08/12/16. Subjective Chief Complaint/HPI The patient is a 76-year-old female admitted with a reason for visit of Gastrointestinal Bleed. Events since last encounter No acute events overnight, transfused 2U FFS 5mg vitamin K and 5 U PRBC, no BM overnight, Denied n/v/abd pain/cp/sob Objective Physical Examination General Exam: Positive: Alert, Cooperative, No Acute Distress Eye Exam: Positive: PERRLA ENT Exam: Positive: Atraumatic Neck Exam: Positive: Supple Chest Exam: Positive: Clear to auscultation, Normal air movement, Wheezing Heart Exam: Positive: Normal S1, Normal S2, Rate Normal, Regular Rhythm Abdomen Exam: Positive: Normal bowel sounds, Soft, Negative: Tenderness Extremity Exam: Negative: Clubbing, Cyanosis, Edema Assessment /Plan Problems (1) Acute blood loss anemia Status: Acute Problem Text: 2/2 to supra INR on coumadin, likely Upper GI bleed given 2U FFP vitamin K 5mg IV, and 4UPRBC overnight with appropriated response BP stable serial h/h and f/u inr hold IVF given h/o CHF clear diet hold coumadin for now, d/w Dr Christopher permanent IVF filter will offer some protection against PE Surgery Dr Drake consulted Protonix IV BID, carafate NPO am, for EGD tomorrow (2) Supratherapeutic INR Status: Acute Problem Text: see above (3) GI bleed Status: Acute Problem Text: see above (4) Eetil-pk-pbvcmpg kidney injury Status: Acute Problem Text: likely pre-renal 2/2 to GI bleed, f/u to follow (5) Chronic diastolic CHF (congestive heart failure) Status: Chronic Problem Text: I and O daily weight monitor for fluid overload restart lasix with appropriate (6) CAD (coronary artery disease) Status: Chronic Problem Text: asa, statin, bp meds tele (7) COPD (chronic obstructive pulmonary disease) Status: Chronic Problem Text: chronic hypoxic respiratory failure o2, and steroid dependent, c/w current meds (8) Pulmonary embolism Status: Chronic Problem Text: d/w Dr Christopher IVC filter will offer protection for now, IVF filter is permanent and no need for change hold coumadin given GI bleed will d/w family new agents vs not AC given recurrent bleed and poor usp prognosis (9) Obesity Status: Chronic Problem Text: complicating care (10) Diabetes Status: Chronic Problem Text: Insulin as per protocol diet control at home (11) Depression Status: Chronic Problem Text: c/w meds f/u of OD (12) GERD (gastroesophageal reflux disease) Status: Chronic Problem Text: c.w current meds (13) HTN (hypertension) Status: Chronic Problem Text: c/w meds, monitor bp Plan/VTE VTE Prophylaxis Ordered?: Yes (no pharm agents given bleed, IVF and teds, will d/w family) Disposition EGD, AC decision, clinical improvement, PT, DNR/DNI poor terminal make up operator prognosis VS, I&O, 24H, Fishbone Vital Signs/I&O Vital Signs Date Time Temp Pulse Resp B/P Pulse Ox O2 Delivery O2 Flow Rate FiO2 08/12/16 20:00 Nasal Cannula 2.0 08/12/16 20:00 96.6 71 20 134/65 96 I&O- Last 24 Hours up to 6 AM 08/12/16 06:00 Intake Total 550 ml Output Total 0 ml Balance 550 ml Laboratory Data 24H LABS Laboratory Tests 2 08/12/16 05:36: Prothromb Time International Ratio 2.43, Prothrombin Time 26.5H 08/12/16 05:41: Blood Urea Nitrogen 59H, Creatinine 2.06H, Sodium Level 140, Potassium Level 4.0 , Chloride Level 98, Carbon Dioxide Level 31, Calcium Level 7.8L, Aspartate Amino Transf (AST/SGOT) 18, Alanine Aminotransferase (ALT/SGPT) 18, Alkaline Phosphatase 51, Total Bilirubin 0.5, Total Protein 5.0L, Albumin 2.4L, Albumin/ Globulin Ratio 0.92L, Anion Gap 11, White Blood Count 10.4H, Red Blood Count 2.18L, Hemoglobin 6.5*L, Hematocrit 19.6L, Mean Corpuscular Volume 89.6#, Mean Corpuscular Hemoglobin 29.7, Mean Corpuscular Hemoglobin Concent 33.1, Red Cell Distribution Width 19.8H, Platelet Count 244#, Neutrophils (%) (Auto) 73.2H, Lymphocytes (%) (Auto) 18.6L, Monocytes (%) (Auto) 4.1, Eosinophils (%) (Auto) 0.2, Basophils (%) (Auto) 0.4, Neutrophils # (Auto) 7.6, Lymphocytes # (Auto) 1.9, Monocytes # (Auto) 0.4, Eosinophils # (Auto) 0.0, Basophils # (Auto) 0.0, Glomerular Filtration Rate 24.8L, Large Unclassified Cells # 0.4, Large Unclassified Cells % 3.4, Magnesium Level 2.3 CBC/BMP Laboratory Tests 08/12/16 05:41 Calcium Level 7.8 L, Aspartate Amino Transf (AST/SGOT) 18, Alanine Aminotransferase (ALT/SGPT) 18, Alkaline Phosphatase 51, Total Bilirubin 0.5, Total Protein 5.0 L, Albumin 2.4 L, Red Blood Count 2.18 L, Mean Corpuscular Volume 89.6 #, Mean Corpuscular Hemoglobin 29.7, Mean Corpuscular Hemoglobin Concent 33.1, Red Cell Distribution Width 19.8 H, Neutrophils (%) (Auto) 73.2 H , Lymphocytes (%) (Auto) 18.6 L, Monocytes (%) (Auto) 4.1, Eosinophils (%) (Auto ) 0.2, Basophils (%) (Auto) 0.4, Neutrophils # (Auto) 7.6, Lymphocytes # (Auto) 1.9, Monocytes # (Auto) 0.4, Eosinophils # (Auto) 0.0, Basophils # (Auto) 0.0 08/12/16 15:12 08/12/16 20:22 Microbiology Microbiology 08/12/16 Stool Occult Blood (JAKE) - Final, Complete NIDIA HANSEN MD Aug 12, 2016 21:03
[2016-08-13] VITALS (7 sets, daily range): BP systolic 98–141; BP diastolic 52–72
--- NOTE | 2016-08-13 01:10 | CR ---
DATE OF CONSULTATION: 08/12/2016 REASON FOR CONSULTATION: GI bleeding. HISTORY OF PRESENT ILLNESS: The patient is a 76-year-old female who presents to the emergency room with acute onset of GI bleeding. Essentially presents with a significantly elevated INR of 13 with some melanotic stools. She has had previous evidence of GI bleeding in the past and this is very similar to that previous episode. She has had pulmonary embolism times two in the past with an IVC filter requiring placement and given this embolization has been on chronic anticoagulation therapy. Previous endoscopies, both upper and lower, last year did not reveal any evidence of source for this GI bleeding when Dr. Maria performed the endoscopy during last year. More recently, the patient was diagnosed with a "corkscrew esophagus" and had some dysphagia issues and developed a retained foreign body (food impaction) last month that Dr. Villalba performed a removal of this food impaction. She has not complained of any significant GE reflux symptoms recently although has had a significant history of this in the past. Her dysphagia issues have been quite problematic for her, but it is not significantly more problematic at this time than it was few weeks ago. She continues to have some progressive respiratory decline, but did tolerate the endoscopy by Dr. Villalba rather well. Her past medical history is significant for history of pulmonary embolism, history of COPD, history of anxiety, history of congestive heart failure, history of diastolic dysfunction, history of GE reflux, history of bilateral mastectomy, history of tubal ligation, history of ankle arthroplasty, history of shoulder arthroplasty. MEDICATIONS: Include [place], Ventolin, albuterol, amlodipine, aspirin, calcium, Colace, iron, furosemide, gabapentin, Claritin, magnesium, nitroglycerin, MiraLAX, prednisone, Advair, simvastatin, trazodone and Coumadin. PHYSICAL EXAM: Reveals an obese white female who is in some mild respiratory distress. HEENT is unremarkable. Lungs are clear anteriorly although crackles posteriorly. Abdomen is soft, nondistended, nontender. No hepatosplenomegaly is appreciated, although she has an obese abdomen. Extremities: Warm, well-perfused. IMPRESSION AND PLAN: The patient has evidence of some GI bleeding with melanotic stools. This most likely is secondary to her significant anticoagulation, and at this point I would recommend reversal of this as much as possible. It sounds as though this is stabilizing over the day, but given her need for anticoagulation with a previous pulmonary embolism, I would recommend that we proceed with an upper endoscopy tomorrow. Will schedule this for her. She understands the risks as well as benefits and would like to proceed with this as soon as possible. At this point, the most likely etiology with melanotic stool is an upper GI source, but it is possible that it is small bowel in etiology given the undefined source from previous endoscopy.
[2016-08-13 02:53] LABS: INR 1.56
[2016-08-13 03:14] LABS: MEAN CORPUSCULAR HEMOGLOBIN 28.8 pg (27.0-33.0); MEAN CORPUSCULAR HGB CONC 32.8 g/dl (32.0-36.5); MEAN CORPUSCULAR VOLUME 87.9 fl (80.0-96.0); PLATELET COUNT, AUTOMATED 217 k/mm3 (150-450); RED CELL DISTRIBUTION WIDTH 18.6 % (11.5-14.5); WHITE BLOOD COUNT 11.6 K/mm3 (4.0-10.0)
[2016-08-13 03:19] LABS: BANDS 2 % (< 11); NUCLEATED RED BLOOD CELL 4 % (0-0)
[2016-08-13 03:20] LABS: ANISOCYTOSIS 2+; MICROCYTOSIS 1+; POIKILOCYTOSIS 1+; POLYCHROMASIA 1+
[2016-08-13 03:22] LABS: ALBUMIN 2.4 GM/DL (3.2-5.2); ALBUMIN/GLOBULIN RATIO 0.89 (1.00-1.93); BILIRUBIN,TOTAL 0.4 MG/DL (0.2-1.0); CALCIUM LEVEL 7.7 MG/DL (8.8-10.2); CREATININE FOR GFR 1.77 MG/DL (0.55-1.02); GLOMERULAR FILTRATION RATE 29.5 (>39); MAGNESIUM LEVEL 2.2 MG/DL (1.8-2.4); POTASSIUM SERUM 3.5 MEQ/L (3.5-5.1); TOTAL PROTEIN 5.1 GM/DL (6.4-8.2)
[2016-08-13] MEDS: SUCRALFATE 1 GM TAB PO SCH ×3 (07:05→22:32)
[2016-08-13] MEDS: TIOTROPIUM INHALER/CAPSULE (SPIRIVA) INH SCH (07:21)
[2016-08-13] MEDS: ADVAIR DISKUS 250/50 INH PWD INH SCH ×2 (07:21→20:21)
[2016-08-13] MEDS: HumaLOG INSULIN (NovoLOG) PER UNIT SC SCH ×4 (07:30→21:00)
[2016-08-13] MEDS: PANTOPRAZOLE 40MG INJ (PROTONIX) (C9113) IV SCH ×2 (08:16→22:31)
[2016-08-13] MEDS: predniSONE 20 MG TAB PO SCH (08:17)
[2016-08-13] MEDS: FERROUS SULFATE 325MG TAB PO SCH (08:17)
[2016-08-13] MEDS: GABAPENTIN 300 MG CAP PO SCH ×2 (08:17→22:32)
[2016-08-13] MEDS: FLUoxetine 20 MG CAP PO SCH (08:22)
[2016-08-13] MEDS: ASPIRIN 81 MG ENTERIC TAB PO SCH (08:22)
[2016-08-13] MEDS: amLODIPine 5 MG TAB PO SCH (08:23)
[2016-08-13] MEDS: MIRALAX *UNIT DOSE* 17GM PACKET PO SCH (09:00)
[2016-08-13] MEDS: DOCUSATE SODIUM 100 MG CAP PO SCH ×2 (09:00→22:32)
[2016-08-13] MEDS: FLUTICASONE PROP 0.05% NASAL SPRAY 16 GM (FLONASE) SCH ×2 (12:07→22:33)
[2016-08-13] MEDS ORDERED: LIDOCAINE 2% INJ 100 MG/5 ML SDV (FOR ANES.) As Ordered ONE (14:00)
[2016-08-13] MEDS ORDERED: PROPOFOL 200 MG/20 ML VIAL As Ordered ONE (14:00)
--- NOTE | 2016-08-13 14:37 | ROOR ---
Patient Name: Isidra Delacruz Procedure Date: 08/13/2016 1:47 PM Date of : 1940 Age: 76 Gender: Female Note Status: Finalized Procedure: Upper GI endoscopy Indications: Acute post hemorrhagic anemia Providers: Gregory Green Jr, MD Referring MD: Gregory Green Jr, MD Requesting Provider: Medicines: Propofol per Anesthesia Complications: No immediate complications. Procedure: Pre-Anesthesia Assessment: - Prior to the procedure, a History and Physical was performed, and patient medications and allergies were reviewed. The patient is competent. The risks and benefits of the procedure and the sedation options and risks were discussed with the patient. All questions were answered and informed consent was obtained. Patient identification and proposed procedure were verified by the physician and the nurse in the pre-procedure area and in the procedure room. Mental Status Examination: alert and oriented. Airway Examination: normal oropharyngeal airway and neck mobility. Respiratory Examination: clear to auscultation. CV Examination: normal. ASA Grade Assessment: III - A patient with severe systemic disease. After reviewing the risks and benefits, the patient was deemed in satisfactory condition to undergo the procedure. The anesthesia plan was to use moderate sedation / analgesia (conscious sedation). Immediately prior to administration of medications, the patient was re-assessed for adequacy to receive sedatives. The heart rate, respiratory rate, oxygen saturations, blood pressure, adequacy of pulmonary ventilation, and response to care were monitored throughout the procedure. The physical status of the patient was re-assessed after the procedure. The Colonoscope was introduced through the mouth, and advanced to the second part of duodenum. The Endoscope was introduced through the and advanced to the. The upper GI endoscopy was accomplished without difficulty. The patient tolerated the procedure well. Findings: The upper third of the esophagus, middle third of the esophagus and lower third of the esophagus were normal. The gastroesophageal junction, cardia, gastric body, gastric antrum, prepyloric region of the stomach and pylorus were normal. The duodenal bulb, first portion of the duodenum and second portion of the duodenum were normal. Impression: - Normal upper third of esophagus, middle third of esophagus and lower third of esophagus. - Normal gastroesophageal junction, cardia, gastric body, antrum, prepyloric region of the stomach and pylorus. - Normal duodenal bulb, first portion of the duodenum and second portion of the duodenum. - No specimens collected. Recommendation: - Return patient to hospital pa for ongoing care. Gregory Green MD Gregory Green Jr, MD 08/13/2016 2:36:52 PM This report has been signed electronically. Number of Addenda: 0 Note Initiated On: 08/13/2016 1:47 PM Estimated Blood Loss: Estimated blood loss: none.
[2016-08-13] MEDS ORDERED: POTASSIUM CHLORIDE 10 MEQ SR TABLET PO ONE (17:30)
--- NOTE | 2016-08-13 17:37 | IPNPDOC ---
Subjective Date Seen The patient was seen on 08/13/16. Subjective Chief Complaint/HPI The patient is a 76-year-old female admitted with a reason for visit of Gastrointestinal Bleed. Events since last encounter reported comfortable, denied cp/ worsening sob/abd/n/v/diarrhea. no sign of active bleeding overnight Objective Physical Examination General Exam: Positive: Alert, Cooperative, No Acute Distress Eye Exam: Positive: PERRLA ENT Exam: Positive: Atraumatic Neck Exam: Positive: Supple Chest Exam: Positive: Clear to auscultation, Normal air movement, Wheezing Heart Exam: Positive: Normal S1, Normal S2, Rate Normal, Regular Rhythm Abdomen Exam: Positive: Normal bowel sounds, Soft, Negative: Tenderness Extremity Exam: Negative: Clubbing, Cyanosis, Edema Assessment /Plan Problems (1) Acute blood loss anemia Status: Acute Problem Text: 2/2 to supra INR on coumadin, likely GI bleed given 2U FFP vitamin K 5mg IV, and 4UPRBC overnight with appropriated response BP stable serial h/h and f/u inr hold IVF given h/o CHF hold coumadin for now, d/w Dr Christopher permanent IVF filter will offer some protection against PE Surgery Dr Drake consulted, s/p EGD neg Protonix IV BID, carafate transfuse as needed, will neeg capsule endoscopy as outpatient (2) Supratherapeutic INR Status: Acute Problem Text: see above (3) GI bleed Status: Acute Problem Text: see above (4) Cauiu-te-tdevdab kidney injury Status: Acute Response to Treatment: Improving Problem Text: likely pre-renal 2/2 to GI bleed, f/u to follow (5) Chronic diastolic CHF (congestive heart failure) Status: Chronic Problem Text: I and O daily weight monitor for fluid overload restart lasix with appropriate (6) CAD (coronary artery disease) Status: Chronic Problem Text: asa, statin, bp meds tele (7) COPD (chronic obstructive pulmonary disease) Status: Chronic Problem Text: chronic hypoxic respiratory failure o2, and steroid dependent, c/w current meds (8) Pulmonary embolism Status: Chronic Problem Text: d/w Dr Christopher IVC filter will offer protection for now, IVF filter is permanent and no need for change hold coumadin given GI bleed d/w patient options availble including no anticoagulation vs coumadin vs new agents such as eliquis given reccurent bleeding 2/2 supratherapeutic INR, agree with trial of Eliquis when h/h stable, wanted anticoagulation given IVC filter offer partial protection, aware no reversal agents with newer agents. risk and benefit discussed. will start AC once h/h stable (9) Obesity Status: Chronic Problem Text: complicating care (10) Diabetes Status: Chronic Problem Text: Insulin as per protocol diet control at home (11) Depression Status: Chronic Problem Text: c/w meds f/u of OD (12) GERD (gastroesophageal reflux disease) Status: Chronic Problem Text: c.w current meds (13) HTN (hypertension) Status: Chronic Problem Text: c/w meds, monitor bp Plan/VTE VTE Prophylaxis Ordered?: Yes (no pharm agents given bleed, IVF and teds, will d/w family) Disposition pending pt, clinical improvement and possible prior auth of eliquis VS, I&O, 24H, Fishbone Vital Signs/I&O Vital Signs Date Time Temp Pulse Resp B/P Pulse Ox O2 Delivery O2 Flow Rate FiO2 08/13/16 15:20 70 18 104/53 95 Nasal Cannula 2 08/13/16 15:05 97.7 I&O- Last 24 Hours up to 6 AM 08/13/16 06:00 Intake Total 940 ml Output Total 1500 ml Balance -560 ml Laboratory Data 24H LABS Laboratory Tests 2 08/13/16 02:06: Blood Urea Nitrogen 44H, Creatinine 1.77H, Sodium Level 141, Potassium Level 3.5 , Chloride Level 103, Carbon Dioxide Level 31, Calcium Level 7.7L, Aspartate Amino Transf (AST/SGOT) 14L, Alanine Aminotransferase (ALT/SGPT) 16, Alkaline Phosphatase 47, Total Bilirubin 0.4, Total Protein 5.1L, Albumin 2.4L, Albumin/ Globulin Ratio 0.89L, Anion Gap 7L, Anisocytosis 2+, Atypical Lymphocytes 3, Band Neutrophils 2, White Blood Count 11.6H, Red Blood Count 3.24L, Hemoglobin 9.3L, Hematocrit 28.5L, Mean Corpuscular Volume 87.9, Mean Corpuscular Hemoglobin 28.8, Mean Corpuscular Hemoglobin Concent 32.8, Red Cell Distribution Width 18.6H, Platelet Count 217, Neutrophils (%) (Auto) , Lymphocytes (%) (Auto) , Monocytes (%) (Auto) , Eosinophils (%) (Auto) , Basophils (%) (Auto) , Neutrophils # (Auto) , Lymphocytes # (Auto) , Monocytes # (Auto) , Eosinophils # (Auto) , Basophils # (Auto) , Glomerular Filtration Rate 29.5L, Large Unclassified Cells # , Large Unclassified Cells % , Lymphocytes (Manual) 11L, Magnesium Level 2.2, Microcytosis 1+, Monocytes ( Manual) 6, Neutrophils 78H, Nucleated Red Blood Cells 4H, Platelet Estimate NORMAL, Poikilocytosis 1+, Polychromasia 1+, Prothromb Time International Ratio 1.56, Prothrombin Time 18.8H 08/13/16 11:31: Bedside Glucose (Misc Panel) 158H 08/13/16 16:49: Bedside Glucose (Misc Panel) 200H CBC/BMP Laboratory Tests 08/12/16 20:22 08/13/16 02:06 Calcium Level 7.7 L, Aspartate Amino Transf (AST/SGOT) 14 L, Alanine Aminotransferase (ALT/SGPT) 16, Alkaline Phosphatase 47, Total Bilirubin 0.4, Total Protein 5.1 L, Albumin 2.4 L, Red Blood Count 3.24 L, Mean Corpuscular Volume 87.9, Mean Corpuscular Hemoglobin 28.8, Mean Corpuscular Hemoglobin Concent 32.8, Red Cell Distribution Width 18.6 H, Neutrophils (%) (Auto) , Lymphocytes (%) (Auto) , Monocytes (%) (Auto) , Eosinophils (%) (Auto) , Basophils (%) (Auto) , Neutrophils # (Auto) , Lymphocytes # (Auto) , Monocytes # (Auto) , Eosinophils # (Auto) , Basophils # (Auto) 08/13/16 08:17 08/13/16 14:06 Microbiology Microbiology 08/12/16 Stool Occult Blood (JAKE) - Final, Complete NIDIA HANSEN MD Aug 13, 2016 17:37
[2016-08-13] MEDS: traZODone 100 MG TAB PO SCH (22:32)
[2016-08-13] MEDS: LORATADINE 10 MG TAB PO SCH (22:32)
[2016-08-13] MEDS: SIMVASTATIN 10 MG TAB PO SCH (22:33)
[2016-08-14 05:10] VITALS: BP 114/67
[2016-08-14 05:58] LABS: MEAN CORPUSCULAR HEMOGLOBIN 29.4 pg (27.0-33.0); MEAN CORPUSCULAR HGB CONC 32.4 g/dl (32.0-36.5); MEAN CORPUSCULAR VOLUME 90.7 fl (80.0-96.0); PLATELET COUNT, AUTOMATED 253 k/mm3 (150-450); RED CELL DISTRIBUTION WIDTH 18.9 % (11.5-14.5); WHITE BLOOD COUNT 8.7 K/mm3 (4.0-10.0)
[2016-08-14] MEDS: SUCRALFATE 1 GM TAB PO SCH ×3 (05:59→21:25)
[2016-08-14 06:09] LABS: INR 1.17
[2016-08-14 06:15] LABS: ALBUMIN 2.4 GM/DL (3.2-5.2); ALBUMIN/GLOBULIN RATIO 0.92 (1.00-1.93); BILIRUBIN,TOTAL 0.4 MG/DL (0.2-1.0); CALCIUM LEVEL 7.6 MG/DL (8.8-10.2); CREATININE FOR GFR 1.39 MG/DL (0.55-1.02); MAGNESIUM LEVEL 2.2 MG/DL (1.8-2.4); POTASSIUM SERUM 3.9 MEQ/L (3.5-5.1)
[2016-08-14] MEDS: HumaLOG INSULIN (NovoLOG) PER UNIT SC SCH ×4 (07:30→21:00)
[2016-08-14 07:49] VITALS: BP 140/63
[2016-08-14 07:55] LABS: BANDS 3 % (< 11); CORRECTED WHITE BLOOD COUNT 8.1 K/mm3; NUCLEATED RED BLOOD CELL 8 % (0-0)
[2016-08-14 07:56] LABS: ANISOCYTOSIS 1+; POLYCHROMASIA 1+
[2016-08-14] MEDS: TIOTROPIUM INHALER/CAPSULE (SPIRIVA) INH SCH (08:28)
[2016-08-14] MEDS: ADVAIR DISKUS 250/50 INH PWD INH SCH ×2 (08:28→22:11)
[2016-08-14] MEDS: ASPIRIN 81 MG ENTERIC TAB PO SCH (09:00)
[2016-08-14] MEDS: predniSONE 20 MG TAB PO SCH (09:00)
[2016-08-14] MEDS: PANTOPRAZOLE 40MG INJ (PROTONIX) (C9113) IV SCH ×2 (09:00→21:21)
[2016-08-14] MEDS: FLUoxetine 20 MG CAP PO SCH (09:00)
[2016-08-14] MEDS: GABAPENTIN 300 MG CAP PO SCH ×2 (09:00→21:24)
[2016-08-14] MEDS: DOCUSATE SODIUM 100 MG CAP PO SCH ×2 (09:00→21:24)
[2016-08-14] MEDS: FERROUS SULFATE 325MG TAB PO SCH (09:00)
[2016-08-14] MEDS: amLODIPine 5 MG TAB PO SCH (09:01)
[2016-08-14] MEDS: MIRALAX *UNIT DOSE* 17GM PACKET PO SCH (09:01)
[2016-08-14] MEDS: FLUTICASONE PROP 0.05% NASAL SPRAY 16 GM (FLONASE) SCH ×2 (09:05→21:23)
[2016-08-14 12:00] VITALS: BP 120/58
[2016-08-14] MEDS: FUROSEMIDE 40 MG TAB PO SCH (12:22)
[2016-08-14 16:00] VITALS: BP 116/62
--- NOTE | 2016-08-14 16:49 | IPNPDOC ---
Subjective Date Seen The patient was seen on 08/14/16. Subjective Chief Complaint/HPI The patient is a 76-year-old female admitted with a reason for visit of Gastrointestinal Bleed. Events since last encounter No acute events overnight. no bleed episodes. denied cp/abd pain/n/v. Objective Physical Examination General Exam: Positive: Alert, Cooperative, No Acute Distress Eye Exam: Positive: PERRLA ENT Exam: Positive: Atraumatic Neck Exam: Positive: Supple Chest Exam: Positive: Clear to auscultation, Normal air movement, Wheezing Heart Exam: Positive: Normal S1, Normal S2, Rate Normal, Regular Rhythm Abdomen Exam: Positive: Normal bowel sounds, Soft, Negative: Tenderness Extremity Exam: Negative: Clubbing, Cyanosis, Edema Assessment /Plan Problems (1) Acute blood loss anemia Status: Acute Problem Text: 2/2 to supra INR on coumadin, likely GI bleed given 2U FFP vitamin K 5mg IV, and 4UPRBC overnight with appropriated response BP stable serial h/h and f/u inr hold IVF given h/o CHF hold coumadin for now, d/w Dr Christopher permanent IVF filter will offer some protection against PE Surgery Dr Drake consulted, s/p EGD neg Protonix BID, carafate transfuse as needed, will need capsule endoscopy as outpatient (2) Supratherapeutic INR Status: Acute Problem Text: see above (3) GI bleed Status: Acute Problem Text: see above (4) Tvmes-cd-taynfdb kidney injury Status: Resolved Response to Treatment: Improving Problem Text: likely pre-renal 2/2 to GI bleed, f/u to follow, resolved (5) Chronic diastolic CHF (congestive heart failure) Status: Chronic Problem Text: I and O daily weight monitor for fluid overload restart lasix given hh stable (6) CAD (coronary artery disease) Status: Chronic Problem Text: asa, statin, bp meds tele (7) COPD (chronic obstructive pulmonary disease) Status: Chronic Problem Text: chronic hypoxic respiratory failure o2, and steroid dependent, c/w current meds (8) Pulmonary embolism Status: Chronic Problem Text: d/w Dr Christopher IVC filter will offer protection for now, IVF filter is permanent and no need for change hold coumadin given GI bleed d/w patient options availble including no anticoagulation vs coumadin vs new agents such as eliquis given reccurent bleeding 2/2 supratherapeutic INR, agree with trial of Eliquis when h/h stable, wanted anticoagulation given IVC filter offer partial protection, aware no reversal agents with newer agents. risk and benefit discussed with patient and family will start AC once h/h stable, likely tomorrow (9) Obesity Status: Chronic Problem Text: complicating care (10) Diabetes Status: Chronic Problem Text: Insulin as per protocol diet control at home (11) Depression Status: Chronic Problem Text: c/w meds f/u of OD (12) GERD (gastroesophageal reflux disease) Status: Chronic Problem Text: c.w current meds (13) HTN (hypertension) Status: Chronic Problem Text: c/w meds, monitor bp Plan/VTE VTE Prophylaxis Ordered?: Yes (no pharm agents given bleed, IVF and teds, will d/w family) Disposition Pending pt and clinical improvement VS, I&O, 24H, Fishbone Vital Signs/I&O Vital Signs Date Time Temp Pulse Resp B/P Pulse Ox O2 Delivery O2 Flow Rate FiO2 08/14/16 16:00 97.1 65 18 116/62 94 Nasal Cannula 2.0 I&O- Last 24 Hours up to 6 AM 08/14/16 06:00 Intake Total 950 ml Output Total 600 ml Balance 350 ml Laboratory Data 24H LABS Laboratory Tests 2 08/13/16 16:49: Bedside Glucose (Misc Panel) 200H 08/13/16 20:39: Bedside Glucose (Misc Panel) 206H 08/14/16 05:25: Blood Urea Nitrogen 26H, Creatinine 1.39H, Sodium Level 145, Potassium Level 3.9 , Chloride Level 108H, Carbon Dioxide Level 31, Calcium Level 7.6L, Aspartate Amino Transf (AST/SGOT) 18, Alanine Aminotransferase (ALT/SGPT) 17, Alkaline Phosphatase 51, Total Bilirubin 0.4, Total Protein 5.0L, Albumin 2.4L, Albumin/ Globulin Ratio 0.92L, Anion Gap 6L, Anisocytosis 1+, Atypical Lymphocytes 1, Band Neutrophils 3, White Blood Count 8.7, Corrected White Blood Count 8.1, Red Blood Count 3.19L, Hemoglobin 9.4L, Hematocrit 28.9L, Mean Corpuscular Volume 90.7, Mean Corpuscular Hemoglobin 29.4, Mean Corpuscular Hemoglobin Concent 32.4 , Red Cell Distribution Width 18.9H, Platelet Count 253, Neutrophils (%) (Auto) , Lymphocytes (%) (Auto) , Monocytes (%) (Auto) , Eosinophils (%) (Auto) , Basophils (%) (Auto) , Neutrophils # (Auto) , Lymphocytes # (Auto) , Monocytes # (Auto) , Eosinophils # (Auto) , Basophils # (Auto) , Glomerular Filtration Rate 39.0, Large Unclassified Cells # , Large Unclassified Cells % , Lymphocytes (Manual) 21, Magnesium Level 2.2, Metamyelocytes 1H, Monocytes ( Manual) 3, Neutrophils 71, Nucleated Red Blood Cells 8H, Platelet Estimate NORMAL, Polychromasia 1+, Prothromb Time International Ratio 1.17, Prothrombin Time 15.0H 08/14/16 11:30: Bedside Glucose (Misc Panel) 202H CBC/BMP Laboratory Tests 08/13/16 22:08 08/14/16 05:25 Calcium Level 7.6 L, Aspartate Amino Transf (AST/SGOT) 18, Alanine Aminotransferase (ALT/SGPT) 17, Alkaline Phosphatase 51, Total Bilirubin 0.4, Total Protein 5.0 L, Albumin 2.4 L, Corrected White Blood Count 8.1, Red Blood Count 3.19 L, Mean Corpuscular Volume 90.7, Mean Corpuscular Hemoglobin 29.4, Mean Corpuscular Hemoglobin Concent 32.4, Red Cell Distribution Width 18.9 H, Neutrophils (%) (Auto) , Lymphocytes (%) (Auto) , Monocytes (%) (Auto) , Eosinophils (%) (Auto) , Basophils (%) (Auto) , Neutrophils # (Auto) , Lymphocytes # (Auto) , Monocytes # (Auto) , Eosinophils # (Auto) , Basophils # ( Auto) 08/14/16 13:50 Microbiology Microbiology 08/12/16 Stool Occult Blood (JAKE) - Final, Complete NIDIA HANSEN MD Aug 14, 2016 16:49
[2016-08-14 20:00] VITALS: BP 121/58; PULSE 74
[2016-08-14] MEDS: LORATADINE 10 MG TAB PO SCH (21:24)
[2016-08-14] MEDS: traZODone 100 MG TAB PO SCH (21:24)
[2016-08-14] MEDS: SIMVASTATIN 10 MG TAB PO SCH (21:25)
[2016-08-15] VITALS: BP 139/62; PULSE 58
[2016-08-15 04:00] VITALS: BP 168/76; PULSE 78
[2016-08-15] MEDS: SUCRALFATE 1 GM TAB PO SCH ×3 (05:16→22:09)
[2016-08-15 05:31] LABS: INR 1.05
[2016-08-15 05:36] LABS: MEAN CORPUSCULAR HEMOGLOBIN 30.1 pg (27.0-33.0); MEAN CORPUSCULAR HGB CONC 33.4 g/dl (32.0-36.5); PLATELET COUNT, AUTOMATED 259 k/mm3 (150-450); RED CELL DISTRIBUTION WIDTH 18.8 % (11.5-14.5); WHITE BLOOD COUNT 7.6 K/mm3 (4.0-10.0)
[2016-08-15 05:40] LABS: ALBUMIN 2.5 GM/DL (3.2-5.2); ALBUMIN/GLOBULIN RATIO 0.96 (1.00-1.93); BILIRUBIN,TOTAL 0.4 MG/DL (0.2-1.0); CALCIUM LEVEL 7.5 MG/DL (8.8-10.2); CREATININE FOR GFR 1.37 MG/DL (0.55-1.02); GLOMERULAR FILTRATION RATE 39.7 (>39); MAGNESIUM LEVEL 2.1 MG/DL (1.8-2.4); POTASSIUM SERUM 3.9 MEQ/L (3.5-5.1); TOTAL PROTEIN 5.1 GM/DL (6.4-8.2)
[2016-08-15 06:21] LABS: NUCLEATED RED BLOOD CELL 2 % (0-0)
[2016-08-15 06:23] LABS: ANISOCYTOSIS 2+
[2016-08-15] MEDS: HumaLOG INSULIN (NovoLOG) PER UNIT SC SCH ×4 (07:30→22:18)
[2016-08-15 08:00] VITALS: BP 154/72
[2016-08-15] MEDS: ADVAIR DISKUS 250/50 INH PWD INH SCH ×2 (09:06→20:35)
[2016-08-15] MEDS: TIOTROPIUM INHALER/CAPSULE (SPIRIVA) INH SCH (09:06)
[2016-08-15] MEDS: amLODIPine 5 MG TAB PO SCH (09:52)
[2016-08-15] MEDS: ASPIRIN 81 MG ENTERIC TAB PO SCH (09:52)
[2016-08-15] MEDS: MIRALAX *UNIT DOSE* 17GM PACKET PO SCH (09:52)
[2016-08-15] MEDS: FLUTICASONE PROP 0.05% NASAL SPRAY 16 GM (FLONASE) SCH ×2 (09:52→22:09)
[2016-08-15] MEDS: FERROUS SULFATE 325MG TAB PO SCH (09:52)
[2016-08-15] MEDS: SENOKOT S TAB PO SCH ×2 (09:52→22:08)
[2016-08-15] MEDS: PANTOPRAZOLE 40MG INJ (PROTONIX) (C9113) IV SCH ×2 (09:52→22:09)
[2016-08-15] MEDS: FUROSEMIDE 40 MG TAB PO SCH (09:53)
[2016-08-15] MEDS: FLUoxetine 20 MG CAP PO SCH (09:53)
[2016-08-15] MEDS: GABAPENTIN 300 MG CAP PO SCH ×2 (09:53→22:08)
[2016-08-15] MEDS: APIXABAN 2.5 MG TAB (ELIQUIS) PO SCH ×2 (09:53→22:08)
[2016-08-15] MEDS: predniSONE 20 MG TAB PO SCH (09:53)
[2016-08-15 12:00] VITALS: BP 123/65
--- NOTE | 2016-08-15 14:19 | IPNPDOC ---
Subjective Date Seen The patient was seen on 08/15/16. Subjective Chief Complaint/HPI The patient is a 76-year-old female admitted with a reason for visit of Gastrointestinal Bleed. Events since last encounter No acute events overnight, no BM. Denied f/c/abd pain/ cp/sob Objective Physical Examination General Exam: Positive: Alert, Cooperative, No Acute Distress Eye Exam: Positive: PERRLA ENT Exam: Positive: Atraumatic Neck Exam: Positive: Supple Chest Exam: Positive: Clear to auscultation, Normal air movement, Wheezing Heart Exam: Positive: Normal S1, Normal S2, Rate Normal, Regular Rhythm Abdomen Exam: Positive: Normal bowel sounds, Soft, Negative: Tenderness Extremity Exam: Negative: Clubbing, Cyanosis, Edema Assessment /Plan Problems (1) Acute blood loss anemia Status: Acute Problem Text: 2/2 to supra INR on coumadin, likely GI bleed given 2U FFP vitamin K 5mg IV, and 4UPRBC overnight with appropriated response BP stable serial h/h and f/u inr hold IVF given h/o CHF d/w Dr Christopher permanent IVF filter will offer some protection against PE Surgery Dr Drake consulted, s/p EGD neg Protonix BID, carafate transfuse as needed, will need capsule endoscopy as outpatient (2) Supratherapeutic INR Status: Acute Problem Text: see above (3) GI bleed Status: Acute Problem Text: see above (4) Fzjlw-gs-vzalsbe kidney injury Status: Resolved Response to Treatment: Improving Problem Text: likely pre-renal 2/2 to GI bleed, f/u to follow, resolved (5) Chronic diastolic CHF (congestive heart failure) Status: Chronic Problem Text: I and O daily weight monitor for fluid overload restart lasix given hh stable (6) CAD (coronary artery disease) Status: Chronic Problem Text: asa, statin, bp meds tele (7) COPD (chronic obstructive pulmonary disease) Status: Chronic Problem Text: chronic hypoxic respiratory failure o2, and steroid dependent, c/w current meds (8) Pulmonary embolism Status: Chronic Problem Text: d/w Dr Christopher IVC filter will offer protection for now, IVF filter is permanent and no need for change hold coumadin given GI bleed d/w patient options availble including no anticoagulation vs coumadin vs new agents such as eliquis given reccurent bleeding 2/2 supratherapeutic INR, agree with trial of Eliquis when h/h stable, wanted anticoagulation given IVC filter offer partial protection, aware no reversal agents with newer agents. risk and benefit discussed with patient and family startwed SUZY owen for prior auth (9) Obesity Status: Chronic Problem Text: complicating care (10) Diabetes Status: Chronic Problem Text: Insulin as per protocol diet control at home (11) Depression Status: Chronic Problem Text: c/w meds f/u of OD (12) GERD (gastroesophageal reflux disease) Status: Chronic Problem Text: c.w current meds (13) HTN (hypertension) Status: Chronic Problem Text: c/w meds, monitor bp Plan/VTE VTE Prophylaxis Ordered?: Yes (Eliquis ) Disposition pt, stable hh, eliquis approval VS, I&O, 24H, Fishbone Vital Signs/I&O Vital Signs Date Time Temp Pulse Resp B/P Pulse Ox O2 Delivery O2 Flow Rate FiO2 08/15/16 12:00 98.0 73 18 123/65 93 Nasal Cannula 2.0 I&O- Last 24 Hours up to 6 AM 08/15/16 05:59 Intake Total 1200 ml Output Total 1500 ml Balance -300 ml Laboratory Data 24H LABS Laboratory Tests 2 08/14/16 16:51: Bedside Glucose (Misc Panel) 160H 08/14/16 20:35: Bedside Glucose (Misc Panel) 216H 08/15/16 04:55: Blood Urea Nitrogen 20H, Creatinine 1.37H, Sodium Level 145, Potassium Level 3.9 , Chloride Level 106, Carbon Dioxide Level 32, Calcium Level 7.5L, Aspartate Amino Transf (AST/SGOT) 20, Alanine Aminotransferase (ALT/SGPT) 22, Alkaline Phosphatase 50, Total Bilirubin 0.4, Total Protein 5.1L, Albumin 2.5L, Albumin/ Globulin Ratio 0.96L, Anion Gap 7L, Anisocytosis 2+, Atypical Lymphocytes 4, White Blood Count 7.6, Red Blood Count 3.07L, Hemoglobin 9.2L, Hematocrit 27.7L , Mean Corpuscular Volume 90.0, Mean Corpuscular Hemoglobin 30.1, Mean Corpuscular Hemoglobin Concent 33.4, Red Cell Distribution Width 18.8H, Platelet Count 259, Neutrophils (%) (Auto) , Lymphocytes (%) (Auto) , Monocytes (%) (Auto) , Eosinophils (%) (Auto) , Basophils (%) (Auto) , Neutrophils # (Auto ) , Lymphocytes # (Auto) , Monocytes # (Auto) , Eosinophils # (Auto) , Basophils # (Auto) , Glomerular Filtration Rate 39.7, Large Unclassified Cells # , Large Unclassified Cells % , Lymphocytes (Manual) 22, Magnesium Level 2.1, Metamyelocytes 1H, Monocytes (Manual) 5, Myelocytes 1H, Neutrophils 67, Nucleated Red Blood Cells 2H, Platelet Estimate NORMAL, Prothromb Time International Ratio 1.05, Prothrombin Time 13.8 08/15/16 11:36: Bedside Glucose (Misc Panel) 131H CBC/BMP Laboratory Tests 08/15/16 04:55 Calcium Level 7.5 L, Aspartate Amino Transf (AST/SGOT) 20, Alanine Aminotransferase (ALT/SGPT) 22, Alkaline Phosphatase 50, Total Bilirubin 0.4, Total Protein 5.1 L, Albumin 2.5 L, Red Blood Count 3.07 L, Mean Corpuscular Volume 90.0, Mean Corpuscular Hemoglobin 30.1, Mean Corpuscular Hemoglobin Concent 33.4, Red Cell Distribution Width 18.8 H, Neutrophils (%) (Auto) , Lymphocytes (%) (Auto) , Monocytes (%) (Auto) , Eosinophils (%) (Auto) , Basophils (%) (Auto) , Neutrophils # (Auto) , Lymphocytes # (Auto) , Monocytes # (Auto) , Eosinophils # (Auto) , Basophils # (Auto) Microbiology Microbiology 08/12/16 Stool Occult Blood (JAKE) - Final, Complete NIDIA HANSEN MD Aug 15, 2016 14:19
[2016-08-15] MEDS ORDERED: ELIQ2.5T PO (14:20)
[2016-08-15 16:00] VITALS: BP 134/61
[2016-08-15 19:53] VITALS: BP 109/56
[2016-08-15] MEDS: SIMVASTATIN 10 MG TAB PO SCH (22:08)
[2016-08-15] MEDS: traZODone 100 MG TAB PO SCH (22:08)
[2016-08-15] MEDS: LORATADINE 10 MG TAB PO SCH (22:08)
[2016-08-16] VITALS: BP 124/65
[2016-08-16 04:00] VITALS: BP 134/70
[2016-08-16 05:36] LABS: BASO % 0.2 % (0.0-1.0); EOS % 0.4 % (0.0-3.0); LARGE UNSTAINED CELL # 0.3 K/mm3 (0.0-0.4); LARGE UNSTAINED CELL % 3.5 % (0.0-4.0); LYMPH # 1.3 K/mm3 (1.5-4.5); LYMPH % 16.1 % (24.0-44.0); MEAN CORPUSCULAR HEMOGLOBIN 29.4 pg (27.0-33.0); MEAN CORPUSCULAR HGB CONC 32.1 g/dl (32.0-36.5); MEAN CORPUSCULAR VOLUME 91.6 fl (80.0-96.0); MONO # 0.3 K/mm3 (0.0-0.8); MONO % 3.7 % (0.0-5.0); NEUTROPHILS # 6.1 K/mm3 (1.8-7.7); PLATELET COUNT, AUTOMATED 262 k/mm3 (150-450); RED CELL DISTRIBUTION WIDTH 18.9 % (11.5-14.5)
[2016-08-16 05:44] LABS: INR 1.12
[2016-08-16 05:51] LABS: ALBUMIN 2.4 GM/DL (3.2-5.2); ALBUMIN/GLOBULIN RATIO 0.92 (1.00-1.93); BILIRUBIN,TOTAL 0.4 MG/DL (0.2-1.0); CALCIUM LEVEL 7.8 MG/DL (8.8-10.2); CREATININE FOR GFR 1.19 MG/DL (0.55-1.02); GLOMERULAR FILTRATION RATE 46.7 (>39); MAGNESIUM LEVEL 1.9 MG/DL (1.8-2.4); POTASSIUM SERUM 3.7 MEQ/L (3.5-5.1)
[2016-08-16] MEDS: SUCRALFATE 1 GM TAB PO SCH ×3 (06:20→21:50)
[2016-08-16] MEDS: ADVAIR DISKUS 250/50 INH PWD INH SCH ×2 (07:13→20:37)
[2016-08-16] MEDS: TIOTROPIUM INHALER/CAPSULE (SPIRIVA) INH SCH (07:13)
[2016-08-16] MEDS: HumaLOG INSULIN (NovoLOG) PER UNIT SC SCH ×4 (07:30→21:00)
[2016-08-16 08:00] VITALS: BP 160/52
[2016-08-16] MEDS: PANTOPRAZOLE 40MG INJ (PROTONIX) (C9113) IV SCH ×2 (09:28→21:00)
[2016-08-16] MEDS: MIRALAX *UNIT DOSE* 17GM PACKET PO SCH (09:31)
[2016-08-16] MEDS: GABAPENTIN 300 MG CAP PO SCH ×2 (09:34→21:48)
[2016-08-16] MEDS: predniSONE 20 MG TAB PO SCH (09:34)
[2016-08-16] MEDS: FERROUS SULFATE 325MG TAB PO SCH (09:34)
[2016-08-16] MEDS: FUROSEMIDE 40 MG TAB PO SCH (09:34)
[2016-08-16] MEDS: ASPIRIN 81 MG ENTERIC TAB PO SCH (09:34)
[2016-08-16] MEDS: SENOKOT S TAB PO SCH ×2 (09:34→21:49)
[2016-08-16] MEDS: amLODIPine 5 MG TAB PO SCH (09:36)
[2016-08-16] MEDS: FLUoxetine 20 MG CAP PO SCH (09:37)
[2016-08-16] MEDS: APIXABAN 2.5 MG TAB (ELIQUIS) PO SCH ×2 (09:38→21:49)
[2016-08-16] MEDS: FLUTICASONE PROP 0.05% NASAL SPRAY 16 GM (FLONASE) SCH ×2 (09:39→21:49)
[2016-08-16] MEDS ORDERED: SUCR1TA PO (10:24)
[2016-08-16] MEDS ORDERED: SENN1TAB2 PO (10:24)
--- NOTE | 2016-08-16 18:44 | DSES ---
DATE OF ADMISSION: 08/11/2016 DATE OF DISCHARGE: 08/17/2016 Discharge delayed for one day given patient had questionable epistaxis. GENERAL SURGEON: Dr. Green. PROCEDURE PERFORMED: Esophagogastroduodenoscopy (EGD). PRIMARY CARE PROVIDER: David Lee. FINAL DIAGNOSES: 1. Acute blood loss anemia secondary to gastrointestinal (GI) bleed, supratherapeutic international normalized ratio (INR). 2. Acute on chronic renal injury, prerenal. 3. Chronic diastolic congestive heart failure. 4. Coronary arterial disease. 5. Chronic obstructive pulmonary disease (COPD). 6. Pulmonary embolism. 7. Obesity. 8. Diabetes type 2. 9. Depression. 10. Gastroesophageal reflux disease (GERD). 11. Hypertension. HISTORY OF PRESENT ILLNESS: This is a 76-year-old female patient with underlying medical history of pulmonary embolism (PE) on Coumadin, COPD on two liters oxygen, anxiety, congestive heart failure, diastolic dysfunction, GERD, who presented to the emergency room after visiting nurse came to visit her, checked her INR, found to be elevated, and the patient was also complaining of shortness of breath since Tuesday, and had gotten progressively worse. The patient's daughter has been noticing black tarry stool for the past few days, has gotten progressively worse. Her INR was found to be 13. The patient was sent to the emergency room. In the emergency room, the patient's hemoglobin was found to be 6.1, INR of 13.6. The patient was given 5 mg of vitamin K, fresh frozen plasma (FFP), as well as three units of packed red blood cells (PRBC) and subsequently admitted. The patient's INR and hemoglobin and hematocrit were followed. Vital signs were followed. Blood pressure medication was initially held. General surgery, Dr. Green, has been consulted, and subsequently the patient was taken for EGD which was negative. The case was discussed with Dr. Christopher. The patient has an inferior vena cava (IVC) filter which will offer partial protection against PE. The case was also discussed with the patient and family. Given that patient has been recurrently admitted for supratherapeutic INR and gastrointestinal (GI) bleed, decision was made to change the patient to a newer agent that does not require frequent INR checks and multiple dosing regimens. The patient is agreeable to give it a shot, but is aware that newer agent is not reversible and could still cause potentially life-threatening bleeding. Subsequently, when the patient's hemoglobin and hematocrit were stable, the patient was placed on Eliquis. Patient and family services (PFS) was consulted for prior authorization for Eliquis, which was approved. Physical therapy fully evaluated the patient. The patient feels comfortable, ready for discharge. The patient's diuretics and blood pressure medication were restarted. Initially the patient was planned to discharge on 08/16/2016, but overnight the patient had an episode of blood clot in the sputum. Subsequently, discharge was on hold for closer monitoring. Hemoglobin and hematocrit have actually been improving. The patient had no further episode where she coughed up any phlegm, and the patient stated that she could potentially have some bleeding of nose which has subsequently resolved as well due to the dry air. Decision was made to keep the patient overnight for observation. The patient was transferred to progressive care unit (PCU), given the patient was hemodynamically stable with improving hemoglobin and hematocrit and no further episodes of hemoptysis or nose bleed was observed. The patient will be monitored overnight. If hemoglobin and hematocrit are stable, the patient will likely be discharged in the morning. VITAL SIGNS: Temperature 97.6, pulse 70, respirations 18, blood pressure 160/52, pulse oximetry 96% on two liters nasal cannula. LABORATORY DATA: WBC 8, hemoglobin and hematocrit 9.9 over 31.2, platelets 262. Chemistry: Sodium 146, potassium 3.7, chloride 107, bicarbonate 32, BUN 14, creatinine 1.19. DISCHARGE MEDICATIONS: - Eliquis 2.5 mg by mouth twice a day - Senna 8.6/50 mg tablet by mouth twice a day - Carafate 1 gram by mouth every eight hours Home medications of: - [place] 7.5/325 mg by mouth four times a day as needed - Ventolin inhaler every four hours as needed - DuoNeb every four hours as needed - Norvasc 5 mg by mouth daily - aspirin 81 mg by mouth daily - calcium one tablet by mouth twice a day - Colace 100 mg by mouth twice a day - ferrous sulfate 325 mg by mouth daily - fluoxetine 60 mg by mouth daily - Flonase inhalation twice a day - Lasix 40 mg by mouth daily - Neurontin 300 mg by mouth twice a day - Claritin 10 mg by mouth at bedtime - magnesium oxide 500 mg by mouth at bedtime - nitroglycerin sublingual 0.4 mg sublingual as needed - Protonix 40 mg by mouth daily - MiraLAX 17 grams by mouth daily as needed - prednisone 20 mg by mouth daily - Advair Diskus 250/50 mcg twice a day inhalation - Zocor 10 mg by mouth at bedtime - Spiriva inhalation daily - trazodone 200 mg by mouth at bedtime DISCHARGE INSTRUCTIONS: The patient is instructed to followup with primary care provider in seven days, and to consider following up with tourist adviser, Dr. Patricio Maria, for possible capsule endoscopy. Return to the hospital if symptoms worsen.
[2016-08-16 19:00] VITALS: BP 129/78
[2016-08-16] MEDS: traZODone 100 MG TAB PO SCH (21:48)
[2016-08-16] MEDS: LORATADINE 10 MG TAB PO SCH (21:49)
[2016-08-16] MEDS: SIMVASTATIN 10 MG TAB PO SCH (21:49)
[2016-08-16 22:00] VITALS: BP 116/57
[2016-08-17 06:00] VITALS: BP 130/64
[2016-08-17] MEDS: SUCRALFATE 1 GM TAB PO SCH (06:29)
[2016-08-17 07:09] LABS: INR 1.03
[2016-08-17 07:09] LABS: BASO % 0.2 % (0.0-1.0); EOS % 0.7 % (0.0-3.0); LARGE UNSTAINED CELL # 0.2 K/mm3 (0.0-0.4); LARGE UNSTAINED CELL % 2.4 % (0.0-4.0); LYMPH # 1.7 K/mm3 (1.5-4.5); LYMPH % 21.2 % (24.0-44.0); MEAN CORPUSCULAR HEMOGLOBIN 30.1 pg (27.0-33.0); MEAN CORPUSCULAR HGB CONC 32.5 g/dl (32.0-36.5); MEAN CORPUSCULAR VOLUME 92.7 fl (80.0-96.0); MONO # 0.6 K/mm3 (0.0-0.8); MONO % 8.8 % (0.0-5.0); NEUTROPHILS # 4.9 K/mm3 (1.8-7.7); NEUTROPHILS % 66.7 % (36.0-66.0); PLATELET COUNT, AUTOMATED 249 k/mm3 (150-450); RED CELL DISTRIBUTION WIDTH 18.9 % (11.5-14.5); WHITE BLOOD COUNT 7.3 K/mm3 (4.0-10.0)
[2016-08-17 07:11] LABS: ALBUMIN 2.3 GM/DL (3.2-5.2); ALBUMIN/GLOBULIN RATIO 0.92 (1.00-1.93); BILIRUBIN,TOTAL 0.4 MG/DL (0.2-1.0); CALCIUM LEVEL 7.6 MG/DL (8.8-10.2); CREATININE FOR GFR 1.35 MG/DL (0.55-1.02); GLOMERULAR FILTRATION RATE 40.4 (>39); MAGNESIUM LEVEL 1.8 MG/DL (1.8-2.4); TOTAL PROTEIN 4.8 GM/DL (6.4-8.2)
[2016-08-17] MEDS: HumaLOG INSULIN (NovoLOG) PER UNIT SC SCH ×2 (07:30→12:00)
[2016-08-17] MEDS: ADVAIR DISKUS 250/50 INH PWD INH SCH (07:44)
[2016-08-17] MEDS: TIOTROPIUM INHALER/CAPSULE (SPIRIVA) INH SCH (07:47)
[2016-08-17] MEDS: SENOKOT S TAB PO SCH (08:26)
[2016-08-17] MEDS: FLUoxetine 20 MG CAP PO SCH (08:26)
[2016-08-17] MEDS: ASPIRIN 81 MG ENTERIC TAB PO SCH (08:26)
[2016-08-17] MEDS: predniSONE 20 MG TAB PO SCH (08:27)
[2016-08-17] MEDS: FERROUS SULFATE 325MG TAB PO SCH (08:27)
[2016-08-17] MEDS: APIXABAN 2.5 MG TAB (ELIQUIS) PO SCH (08:28)
[2016-08-17] MEDS: GABAPENTIN 300 MG CAP PO SCH (08:28)
[2016-08-17] MEDS: FLUTICASONE PROP 0.05% NASAL SPRAY 16 GM (FLONASE) SCH (08:28)
[2016-08-17 09:00] VITALS: BP 106/54
[2016-08-17] MEDS: amLODIPine 5 MG TAB PO SCH (09:00)
[2016-08-17] MEDS: FUROSEMIDE 40 MG TAB PO SCH (09:00)
[2016-08-17] MEDS ORDERED: PANTOPRAZOLE 40MG TAB (PROTONIX) PO SCH (09:00)
[2016-08-17] MEDS ORDERED: AMLO25TA PO (11:09)
--- NOTE | 2016-08-17 14:09 | IPNPDOC ---
Text Note Date of Service The patient was seen on 08/17/16. NOTE Patient has been evaluated on 08/17/16 with no acute changes overnight. No signs of bleeding. Hemoglobin stable. No hemoptysis/hematemesis/hematochezia/ hematuria. Patient will be discharged today. Please see discharge summary completed by Dr. Rita Mayorga on 08/16/16. VS,Fishbone, I+O VS, Fishbone, I+O Laboratory Tests 08/17/16 06:29 Calcium Level 7.6 L, Aspartate Amino Transf (AST/SGOT) 22, Alanine Aminotransferase (ALT/SGPT) 17, Alkaline Phosphatase 43 L, Total Bilirubin 0.4, Total Protein 4.8 L, Albumin 2.3 L, Red Blood Count 3.16 L, Mean Corpuscular Volume 92.7, Mean Corpuscular Hemoglobin 30.1, Mean Corpuscular Hemoglobin Concent 32.5, Red Cell Distribution Width 18.9 H, Neutrophils (%) (Auto) 66.7 H , Lymphocytes (%) (Auto) 21.2 L, Monocytes (%) (Auto) 8.8 H, Eosinophils (%) ( Auto) 0.7, Basophils (%) (Auto) 0.2, Neutrophils # (Auto) 4.9, Lymphocytes # ( Auto) 1.7, Monocytes # (Auto) 0.6, Eosinophils # (Auto) 0.0, Basophils # (Auto) 0.0 Vital Signs Date Time Temp Pulse Resp B/P Pulse Ox O2 Delivery O2 Flow Rate FiO2 08/17/16 09:00 Nasal Cannula 2.0 08/17/16 09:00 73 106/54 08/17/16 06:00 97.2 18 92 I&O- Last 24 Hours up to 6 AM 08/17/16 06:00 Intake Total 1620 ml Output Total 900 ml Balance 720 ml BALDEMAR REYES MD Aug 17, 2016 14:09
== END 2016-08-17 12:24 | disposition home or self-care (01) | DRG 813 ==
LOC: EDBD 16:29 → M ED 18:49 → M ED INP 19:54 → M PCU 22:12 → M MSPAV 08-16 18:54
PROVIDERS: ADMIT Internal Medicine; ATTEND Internal Medicine
PROC: 30233N1 Transfusion of Nonautologous Red Blood Cells into Peripheral Vein, Percutaneous Approach (ICD-10-PCS; 2016-08-11)
PROC: 0DJ08ZZ Inspection of Upper Intestinal Tract, Via Natural or Artificial Opening Endoscopic (ICD-10-PCS; principal; 2016-08-13 14:15)
DX: D68.32 Hemorrhagic disorder due to extrinsic circulating anticoagulants (principal); I50.32 Chronic diastolic (congestive) heart failure; N17.9 Acute kidney failure, unspecified; J96.11 Chronic respiratory failure with hypoxia; D62 Acute posthemorrhagic anemia; E66.9 Obesity, unspecified; K21.9 Gastro-esophageal reflux disease without esophagitis; I12.9 Hypertensive chronic kidney disease with stage 1 through stage 4 chronic kidney disease, or unspecified chronic kidney disease; N18.9 Chronic kidney disease, unspecified; I25.10 Atherosclerotic heart disease of native coronary artery without angina pectoris; E11.9 Type 2 diabetes mellitus without complications; J44.9 Chronic obstructive pulmonary disease, unspecified; Z79.01 Long term (current) use of anticoagulants; Z86.711 Personal history of pulmonary embolism; Z79.899 Other long term (current) drug therapy; Z79.82 Long term (current) use of aspirin; F41.9 Anxiety disorder, unspecified; Z88.0 Allergy status to penicillin; Z88.2 Allergy status to sulfonamides; Z88.5 Allergy status to narcotic agent; Z88.8 Allergy status to other drugs, medicaments and biological substances

== ENCOUNTER 2016-08-25 02:20 | Emergency (ER) | payer MEDICAID, MEDICARE ==
[~2016-08-25] VITALS: Ht 157.5 cm; Wt 78.0 kg
[~2016-08-25 02:20] MED LIST changes: +AMLO25TA PO; +AMLO5TAB2 PO; +ELIQ2.5T PO; +FURO40TA2 PO; +SENN1TAB2 PO; +SUCR1TA PO
[2016-08-25] MEDS ORDERED: valtrex PO (02:51)
[2016-08-25] MEDS: IPRATROPIUM 0.5MG/ALBUTEROL 2.5MG INH SOL UD 3ML (DUONEB)(J7620) NEB ONE (03:28)
[2016-08-25] MEDS: dexameTHASONE 20 MG/5 ML VIAL (J1100) IV ONE (03:32)
[2016-08-25 03:35] LABS: ABG BASE EXCESS 3.7 (-2.0-2.0); ABG HCO3 28.7 MEQ/L (22.0-26.0); ABG PARTIAL PRESSURE CO2 45.2 mmHg (35.0-45.0); ABG STANDARD HCO3 27.8 MEQ/L (22.0-26.0)
[2016-08-25 03:44] LABS: BASO % 0.1 % (0.0-1.0); EOS % 0.2 % (0.0-3.0); LARGE UNSTAINED CELL # 0.2 K/mm3 (0.0-0.4); LYMPH # 1.2 K/mm3 (1.5-4.5); MEAN CORPUSCULAR HEMOGLOBIN 29.5 pg (27.0-33.0); MEAN CORPUSCULAR HGB CONC 31.6 g/dl (32.0-36.5); MEAN CORPUSCULAR VOLUME 93.5 fl (80.0-96.0); MONO # 0.3 K/mm3 (0.0-0.8); MONO % 3.8 % (0.0-5.0); NEUTROPHILS # 7.4 K/mm3 (1.8-7.7); NEUTROPHILS % 82.8 % (36.0-66.0); PLATELET COUNT, AUTOMATED 323 k/mm3 (150-450); RED CELL DISTRIBUTION WIDTH 17.4 % (11.5-14.5)
[2016-08-25 04:00] LABS: CALCIUM LEVEL 8.7 MG/DL (8.8-10.2); CREATININE FOR GFR 1.97 MG/DL (0.55-1.02); GLOMERULAR FILTRATION RATE 26.1 (>39); POTASSIUM SERUM 3.9 MEQ/L (3.5-5.1)
[2016-08-25 04:15] LABS: CALCIUM OXALATE CRYSTALS SMALL
[2016-08-25] MEDS: CIPROFLOXACIN 200 MG in APPROPRIATE DILUENT 1 EA IV ONE (05:15)
[2016-08-25] MEDS ORDERED: CIPR500T89 PO (05:28)
--- NOTE | 2016-08-25 06:24 | REP ---
Clinical: Dyspnea. Comparison: 08/11/2016. Findings: Mediastinum and cardiac silhouette are stable and within normal limits for portable technique. Left basilar opacities are similar to prior examination and likely represent chronic change. Subtle acute basilar atelectasis cannot be excluded. Evidence for prior axillary surgery and left shoulder repair. Impression: Chronic-appearing changes primarily involving the left lower lobe. No obvious acute cardiopulmonary process although subtle basilar atelectasis cannot be excluded. Signed by Abisai Reyes MD 08/25/2016 06:16 A
[2016-08-25 06:38] VITALS: BP 148/80
== END 2016-08-25 06:42 | disposition home or self-care (01) ==
LOC: EDSEX 02:20 → EDBD 02:20 → M ED 03:45
DX: N39.0 Urinary tract infection, site not specified (principal); Z79.01 Long term (current) use of anticoagulants; Z87.891 Personal history of nicotine dependence
CPT/HCPCS: 36600; 71010; 80048; 81001; 82803; 85025; 85379; 87040; 87086; 94640; 96361; 96374; 99284; J0744; J1100

== ENCOUNTER 2016-08-29 14:38 | Emergency (ER) | payer MEDICARE ==
[~2016-08-29] VITALS: Ht 157.5 cm; Wt 83.9 kg
[~2016-08-29 14:38] MED LIST changes: +CIPR500T89 PO; +valtrex PO
[2016-08-29 14:39] VITALS: BP 101/73
[2016-08-29] MEDS ORDERED: KEFL500C7 PO (15:06)
[2016-09-07] MEDS ORDERED: GABA300C3 PO (11:29)
== END 2016-08-29 15:24 | disposition home or self-care (01) ==
LOC: M ED 15:11
DX: L03.319 Cellulitis of trunk, unspecified (principal); B02.9 Zoster without complications

== ENCOUNTER 2016-09-07 10:56 | Emergency (ER) | payer MEDICARE ==
[~2016-09-07] VITALS: Ht 157.5 cm; Wt 82.6 kg
[~2016-09-07 10:56] MED LIST changes: -COLA100C PO; +COLA100C3 PO; +KEFL500C7 PO
[2016-09-07] MEDS ORDERED: DOXY-278 PO (11:29)
[2016-09-07] MEDS ORDERED: QUET5TAB PO (11:29)
[2016-09-07] MEDS ORDERED: VIT D (11:29)
[2016-09-07] MEDS ORDERED: SENE8.6T3 PO (11:29)
[2016-09-07] MEDS ORDERED: CENTTAB PO (11:29)
[2016-09-07] MEDS ORDERED: GABA-282 PO (11:29)
[2016-09-07] MEDS ORDERED: CALCIUM (11:29)
[2016-09-07] MEDS ORDERED: TRAZ100T4 PO (11:29)
[2016-09-07] MEDS ORDERED: LIDO4CRE2 EX (11:35)
[2016-09-07] MEDS ORDERED: MORPHINE 2 MG/ML 1ML SYRINGE IV PRN (11:45)
[2016-09-07] MEDS ORDERED: ONDANSETRON 4MG/2ML VIAL (J2405) IV ONE (11:45)
--- NOTE | 2016-09-07 11:59 | REP ---
Clinical: Chest pain. Comparison: 08/25/2016. Findings: Mediastinum and cardiac silhouette are stable. No obvious consolidation, effusion, or pneumothorax. However subtle atelectasis cannot be excluded. Skeletal structures stable. Impression: No focal consolidation. However cannot exclude trace atelectasis. Signed by Abisai Reyes MD 09/07/2016 11:51 A
[2016-09-07 13:12] LABS: BASO % 0.1 % (0.0-1.0); EOS % 0.1 % (0.0-3.0); LARGE UNSTAINED CELL # 0.1 K/mm3 (0.0-0.4); LARGE UNSTAINED CELL % 0.6 % (0.0-4.0); LYMPH # 0.7 K/mm3 (1.5-4.5); LYMPH % 6.7 % (24.0-44.0); MEAN CORPUSCULAR VOLUME 96.7 fl (80.0-96.0); MONO # 0.3 K/mm3 (0.0-0.8); MONO % 3.4 % (0.0-5.0); NEUTROPHILS # 8.7 K/mm3 (1.8-7.7); NEUTROPHILS % 89.1 % (36.0-66.0); PLATELET COUNT, AUTOMATED 243 k/mm3 (150-450); RED CELL DISTRIBUTION WIDTH 17.3 % (11.5-14.5); WHITE BLOOD COUNT 9.8 K/mm3 (4.0-10.0)
[2016-09-07 13:14] LABS: INR 1.04
[2016-09-07 13:44] LABS: ALBUMIN 3.2 GM/DL (3.2-5.2); ALBUMIN/GLOBULIN RATIO 1.19 (1.00-1.93); ALKALINE PHOSPHATASE 54 U/L (45-117); ALT/SGPT 19 U/L (12-78); ANION GAP 9 MEQ/L (8-16); AST/SGOT 11 U/L (15-37); BILIRUBIN,DIRECT 0.1 MG/DL (0.0-0.2); BILIRUBIN,TOTAL 0.4 MG/DL (0.2-1.0); BLOOD UREA NITROGEN 16 MG/DL (7-18); CALCIUM LEVEL 9.5 MG/DL (8.8-10.2); CARBON DIOXIDE LEVEL 36 MEQ/L (21-32); CHLORIDE LEVEL 99 MEQ/L (98-107); CREATININE FOR GFR 1.22 MG/DL (0.55-1.02); FREE T4 1.22 NG/DL (0.76-1.46); GLOMERULAR FILTRATION RATE 45.4 (>39); GLUCOSE, FASTING 174 MG/DL (83-110); SODIUM LEVEL 144 MEQ/L (136-145); TOTAL PROTEIN 5.9 GM/DL (6.4-8.2)
--- NOTE | 2016-09-07 14:44 | REP ---
Clinical: Chest pain. Comparison: 07/19/2016. Findings: The lung crump are relatively well aerated with mild chronic emphysematous changes and only minimal basilar fibroatelectatic changes (left greater than right). No significant consolidation, nodule or mass lesion. No pleural effusion/reaction. No pneumothorax. Mediastinum demonstrates atherosclerotic changes to the thoracic aorta and coronary arteries without cardiomegaly, aortic aneurysm, or pericardial effusion. No obvious significant adenopathy. Musculoskeletal structures demonstrate degenerative changes. Impression: Mild chronic emphysematous changes. Mild basilar fibroatelectatic changes. No significant consolidation, pleural effusion, adenopathy. Signed by Abisai Reyes MD 09/07/2016 02:35 P
--- NOTE | 2016-09-07 14:45 | REP ---
Clinical: Chest pain . Technique: Laird scale and color Doppler evaluation using linear high frequency transducer. Findings: Ultrasound examination of the right and left lower extremity deep venous structures from the common femoral vein to the popliteal vein demonstrates normal compressibility flow and wave patterns in response to respiration and augmentation. There is no evidence for deep venous thrombosis. Impression: No evidence for deep venous thrombosis. Signed by Abisai Reyes MD 09/07/2016 02:36 P
[2016-09-07] MEDS ORDERED: IPRATROPIUM 0.5MG/ALBUTEROL 2.5MG INH SOL UD 3ML (DUONEB)(J7620) NEB ONE (15:00)
[2016-09-07 16:46] VITALS: BP 118/70
--- NOTE | 2016-09-07 18:01 | ECGEPIP ---
Stationary ECG Study [facility] - ED Test Date: 2016-09-07 Pat Name: MONSERRAT VELASCO Department: Room: - Gender: F Facilities Locator: ct : 1940 Requested By: Lelo Loza Order Number: [id number] Reading MD: Amilcar Eduardo Measurements Intervals [place] Rate: 80 P: 71 [place]: 103 QRS: -4 QRSD: 92 T: 9 QT: 419 QTc: 486 Interpretive Statements SINUS RHYTHM WITH SHORT [place] INTERVAL WITH FREQUENT [employer] RBBB Electronically Signed On 09-07-2016 18:00:49 EDT by Amilcar Eduardo
--- NOTE | 2016-09-07 18:23 | ECGEPIP ---
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 RBBB Electronically Signed On 09-07-2016 18:22:49 EDT by Amilcar Eduardo
[2016-09-21] MEDS ORDERED: ELIQ2.5T PO (21:20)
[2016-09-21] MEDS ORDERED: SUCR1TAB56 PO (21:20)
[2016-09-21] MEDS ORDERED: ALPR0.25 PO (21:20)
[2016-09-21] MEDS ORDERED: SENN8.6T10 PO (21:20)
[2016-09-21] MEDS ORDERED: ASPI81TAEC PO (21:20)
[2016-09-21] MEDS ORDERED: AMLO2.5T PO (21:20)
[2016-09-21] MEDS ORDERED: VITMTA PO (21:20)
== END 2016-09-07 16:50 | disposition home or self-care (01) ==
LOC: M ED 12:49
DX: R07.9 Chest pain, unspecified (principal); B02.9 Zoster without complications; I25.2 Old myocardial infarction; I50.9 Heart failure, unspecified; I25.10 Atherosclerotic heart disease of native coronary artery without angina pectoris; I12.0 Hypertensive chronic kidney disease with stage 5 chronic kidney disease or end stage renal disease; I12.9 Hypertensive chronic kidney disease with stage 1 through stage 4 chronic kidney disease, or unspecified chronic kidney disease; H26.9 Unspecified cataract; R91.8 Other nonspecific abnormal finding of lung field; Z79.82 Long term (current) use of aspirin; Z79.899 Other long term (current) drug therapy; Z88.0 Allergy status to penicillin; Z88.2 Allergy status to sulfonamides; Z88.5 Allergy status to narcotic agent; Z88.8 Allergy status to other drugs, medicaments and biological substances
CPT/HCPCS: 71010; 71250; 80048; 80076; 82550; 82553; 83690; 84439; 84443; 84484; 85025; 85610; 85730; 87040; 93005; 93041; 93970; 94640; 96374; 96375; 99285; J2405

== ENCOUNTER 2016-09-11 19:39 | Emergency (ER) | payer MEDICARE ==
[~2016-09-11] VITALS: Ht 157.5 cm; Wt 86.2 kg
[~2016-09-11 19:39] MED LIST changes: +CALCIUM; +CENTTAB PO; +DOXY-278 PO; +GABA-282 PO; +LIDO4CRE2 EX; +QUET5TAB PO; +SENE8.6T3 PO; +VIT D
[2016-09-11] MEDS ORDERED: methylPREDNISolone INJ 125 MG/2 ML VIAL (J2930) IV ONE (20:00)
[2016-09-11] MEDS: IPRATROPIUM 0.5MG/ALBUTEROL 2.5MG INH SOL UD 3ML (DUONEB)(J7620) NEB SCH ×2 (20:08→20:26)
[2016-09-11 20:28] LABS: BASO % 0.1 % (0.0-1.0); EOS % 0.2 % (0.0-3.0); LARGE UNSTAINED CELL # 0.1 K/mm3 (0.0-0.4); LARGE UNSTAINED CELL % 1.6 % (0.0-4.0); LYMPH % 11.5 % (24.0-44.0); MEAN CORPUSCULAR HEMOGLOBIN 29.7 pg (27.0-33.0); MEAN CORPUSCULAR HGB CONC 30.8 g/dl (32.0-36.5); MEAN CORPUSCULAR VOLUME 96.6 fl (80.0-96.0); MONO # 0.5 K/mm3 (0.0-0.8); MONO % 6.3 % (0.0-5.0); NEUTROPHILS # 6.2 K/mm3 (1.8-7.7); NEUTROPHILS % 80.3 % (36.0-66.0); PLATELET COUNT, AUTOMATED 236 k/mm3 (150-450); RED CELL DISTRIBUTION WIDTH 17.6 % (11.5-14.5); WHITE BLOOD COUNT 7.7 K/mm3 (4.0-10.0)
[2016-09-11 20:48] LABS: CALCIUM LEVEL 8.2 MG/DL (8.8-10.2); CREATININE FOR GFR 1.63 MG/DL (0.55-1.02); GLOMERULAR FILTRATION RATE 32.5 (>39); POTASSIUM SERUM 4.1 MEQ/L (3.5-5.1)
[2016-09-11 21:17] LABS: INR 0.97
--- NOTE | 2016-09-11 22:40 | REPUSA ---
CT of the chest without contrast Clinical statement: Shortness of breath. Technique: Multiple axial CT images were obtained with 5 mm cuts through the chest without administra tion of contrast. Coronal and sagittal reconstructions were also obtained. Comparison: 07/19/2016. 09/07/2016. Findings: There is no thoracic lymphadenopathy. The visualized portions of the thyroid gland is unrem arkable. There are no pericardial or pleural effusions. Interstitial changes are seen in the lower kim[place] ngs bilaterally. Mild emphysema seen in the upper lungs bilaterally. Limited imaging of the upper abd omen does not demonstrate any acute abnormalities. There are no suspicious osseous lesions. Moderatel y severe multilevel degenerative disc disease with spondylotic changes are seen throughout the spine. Impression: Minimal atelectasis in the lower lungs. Mild emphysema. No other acute intrapulmonary dis ease.
[2016-09-11 22:55] VITALS: BP 136/68
--- NOTE | 2016-09-12 07:16 | ECGEPIP ---
Stationary ECG Study [facility] - ED Test Date: 2016-09-11 Pat Name: MONSERRAT VELASCO Department: Room: - Gender: F Production Support Manager: MackenzieB: 1940 Requested By: TERRELL Grajeda Order Number: [id number] Reading MD: Amilcar Eduardo Measurements Intervals [place] Rate: 83 P: 102 [place]: 169 QRS: -1 QRSD: 82 T: -64 QT: 364 QTc: 428 Interpretive Statements SINUS RHYTHM INC. RBBB NONSPECIFIC ST & T-WAVE ABNORMALITY SIMILAR TO 09/07/16 Electronically Signed On 09-12-2016 7:16:08 EDT by Amilcar Eduardo
--- NOTE | 2016-09-12 08:07 | REP ---
Clinical: Chest pain. Technique: AP and lateral. Comparison: 09/07/2016. Findings: Mediastinum and cardiac silhouette are within normal limits and stable. Lung crump demonstrate chronic interstitial changes with trace basilar atelectasis and possible small retrocardiac infiltrate. No effusion. No pneumothorax. Skeletal structures stable. Impression: Chronic interstitial changes. Possible basilar atelectasis and small left lower lobe/retrocardiac infiltrate cannot be excluded. Signed by Abisai Reyes MD 09/12/2016 07:58 A
--- NOTE | 2016-09-13 09:55 | ED PDOC ---
Post-Departure Follow-Up radiology report faxed to Larissa Goodman MD Sep 13, 2016 09:55
[2016-09-21] MEDS ORDERED: SUCR1TAB56 PO (21:20)
[2016-09-21] MEDS ORDERED: ASPI81TAEC PO (21:20)
[2016-09-21] MEDS ORDERED: SENN8.6T10 PO (21:20)
[2016-09-21] MEDS ORDERED: VITMTA PO (21:20)
[2016-09-21] MEDS ORDERED: AMLO2.5T PO (21:20)
[2016-09-21] MEDS ORDERED: ELIQ2.5T PO (21:20)
[2016-09-21] MEDS ORDERED: ALPR0.25 PO (21:20)
== END 2016-09-11 23:24 | disposition home or self-care (01) ==
LOC: EDBD 19:39 → M ED 20:21
DX: J44.1 Chronic obstructive pulmonary disease with (acute) exacerbation (principal); I50.9 Heart failure, unspecified; E11.9 Type 2 diabetes mellitus without complications; I10 Essential (primary) hypertension; E78.5 Hyperlipidemia, unspecified; K21.9 Gastro-esophageal reflux disease without esophagitis; N18.9 Chronic kidney disease, unspecified; Z79.82 Long term (current) use of aspirin; Z79.52 Long term (current) use of systemic steroids; Z79.01 Long term (current) use of anticoagulants; Z79.899 Other long term (current) drug therapy; Z88.0 Allergy status to penicillin; Z88.8 Allergy status to other drugs, medicaments and biological substances; Z88.5 Allergy status to narcotic agent; Z88.2 Allergy status to sulfonamides
CPT/HCPCS: 36415; 71020; 71250; 80048; 82550; 82553; 83880; 84484; 85025; 85610; 85730; 93005; 93041; 94640; 94760; 96374; 99285; J2930

== ENCOUNTER → 2016-09-29 | Outpatient (REF) | payer MEDICARE, MEDICAID ==
[~2016-09-29] MED LIST changes: +ALPR0.25 PO; +AMLO2.5T PO; +ASPI81TAEC PO; +SENN8.6T10 PO; +SUCR1TAB56 PO
[2016-09-29 09:56] LABS: BASO % 0.3 % (0.0-1.0); EOS # 0.1 K/mm3 (0.0-0.50); EOS % 0.9 % (0.0-3.0); LARGE UNSTAINED CELL # 0.2 K/mm3 (0.0-0.4); LARGE UNSTAINED CELL % 2.6 % (0.0-4.0); LYMPH % 23.2 % (24.0-44.0); MEAN CORPUSCULAR HEMOGLOBIN 31.2 pg (27.0-33.0); MEAN CORPUSCULAR HGB CONC 32.9 g/dl (32.0-36.5); MEAN CORPUSCULAR VOLUME 94.7 fl (80.0-96.0); MONO # 0.5 K/mm3 (0.0-0.8); MONO % 5.4 % (0.0-5.0); NEUTROPHILS # 5.9 K/mm3 (1.8-7.7); NEUTROPHILS % 67.5 % (36.0-66.0); PLATELET COUNT, AUTOMATED 281 k/mm3 (150-450); RED CELL DISTRIBUTION WIDTH 16.9 % (11.5-14.5); WHITE BLOOD COUNT 8.8 K/mm3 (4.0-10.0)
[2016-09-29 10:28] LABS: ALBUMIN 2.9 GM/DL (3.2-5.2); ALBUMIN/GLOBULIN RATIO 1.04 (1.00-1.93); BILIRUBIN,TOTAL 0.4 MG/DL (0.2-1.0); CALCIUM LEVEL 8.4 MG/DL (8.8-10.2); CREATININE FOR GFR 1.19 MG/DL (0.55-1.02); GLOMERULAR FILTRATION RATE 46.7 (>39); PERCENT SATURATION 23.7 % (13.2-37.4); POTASSIUM SERUM 4.2 MEQ/L (3.5-5.1); TOTAL PROTEIN 5.7 GM/DL (6.4-8.2)
== END ==
LOC: M LAB REF 09:41
PROVIDERS: ATTEND Emergency Medicine
DX: E11.9 Type 2 diabetes mellitus without complications (principal); I10 Essential (primary) hypertension; E78.2 Mixed hyperlipidemia; E55.9 Vitamin D deficiency, unspecified; D50.9 Iron deficiency anemia, unspecified

== ENCOUNTER → 2016-10-29 | Outpatient (REF) | payer MEDICARE, MEDICAID | LOC: M LAB REF 16:35 | PROVIDERS: ATTEND Family Medicine | DX: R82.90 Unspecified abnormal findings in urine (principal); N39.0 Urinary tract infection, site not specified ==

== ENCOUNTER → 2016-12-31 | Outpatient (CLI) | payer MEDICARE, MEDICAID ==
[~2016-12-31] MED LIST changes: +ADVAIR; +AZIT-12 PO; -AZIT250T3 PO; +CIPR-249 PO; -CIPR500T89 PO; -COLA100C3 PO; +COLA100C5 PO; -COUM2.5T11 PO; +COUM2.5T17 PO; +FERR1TAB8 PO; -FERR325T PO; +FISH120012 PO; +FLUO20CA19 PO; -FLUO20CA9 PO; -FURO1TAB15 PO; +FURO80TA2 PO; -HYDR-4274 PO; +HYDR50TA70 PO; +KEFL500C17 PO; -KEFL500C7 PO; +LEVA1TAB2 PO; -LEVA500T PO; +LUNE3TAB36 PO; -LUNE3TAB48 PO; +MAGN250T3 PO; -NORC7.5T PO; +NORC7.5T35 PO; -OXYB5TA PO; +OXYB5TAB10 PO; +PROAAER10; +PROC2.5C PR; +SENN1TAB10 PO; -SENN8.6T10 PO; +TRAZ-136 PO; -TRAZ100T4 PO; +TRIA1CR TOP
[2016-12-31 13:57] LABS: BASO % 0.5 % (0.0-1.0); EOS # 0.1 K/mm3 (0.0-0.50); EOS % 1.3 % (0.0-3.0); LARGE UNSTAINED CELL # 0.3 K/mm3 (0.0-0.4); LARGE UNSTAINED CELL % 2.9 % (0.0-4.0); LYMPH # 2.7 K/mm3 (1.5-4.5); LYMPH % 26.8 % (24.0-44.0); MEAN CORPUSCULAR HEMOGLOBIN 31.9 pg (27.0-33.0); MEAN CORPUSCULAR VOLUME 96.6 fl (80.0-96.0); MONO # 0.7 K/mm3 (0.0-0.8); MONO % 7.2 % (0.0-5.0); NEUTROPHILS # 5.6 K/mm3 (1.8-7.7); NEUTROPHILS % 61.3 % (36.0-66.0); PLATELET COUNT, AUTOMATED 281 k/mm3 (150-450); RED CELL DISTRIBUTION WIDTH 14.6 % (11.5-14.5); WHITE BLOOD COUNT 9.1 K/mm3 (4.0-10.0)
== END ==
LOC: M LAB 13:07
PROVIDERS: ATTEND Physician Assistant Medical
DX: K62.5 Hemorrhage of anus and rectum (principal)

== ENCOUNTER 2017-01-02 15:27 | Inpatient (IN) | payer MEDICARE, MEDICAID ==
[~2017-01-02] VITALS: Ht 165.1 cm; Wt 81.8 kg
[~2017-01-02 15:27] MED LIST changes: -ADVAIR; -FISH120012 PO; -MAGN250T3 PO; +PANTOPRAZOLE 40MG TAB (PROTONIX) PO SCH; -PROAAER10; -PROC2.5C PR; -TRIA1CR TOP
[2017-01-02] MEDS ORDERED: MAGN400T5 PO (15:42)
[2017-01-02 17:42] LABS: ABG BASE EXCESS 10.2 (-2.0-2.0); ABG PARTIAL PRESSURE CO2 56.8 mmHg (35.0-45.0); ABG PARTIAL PRESSURE O2 90.2 mmHg (75.0-100.0); ABG STANDARD HCO3 33.9 MEQ/L (22.0-26.0); ABG TOTAL CO2 37.8 MEQ/L (23.0-31.0)
[2017-01-02] MEDS ORDERED: GABA600T PO (18:10)
[2017-01-02] MEDS ORDERED: OXYB15TA PO (18:10)
[2017-01-02] MEDS ORDERED: PRED10TA2 PO (18:10)
[2017-01-02] MEDS ORDERED: PROC2.5C PR (18:10)
[2017-01-02 18:12] LABS: BASO % 0.3 % (0.0-1.0); EOS # 0.1 K/mm3 (0.0-0.50); EOS % 1.1 % (0.0-3.0); LARGE UNSTAINED CELL # 0.3 K/mm3 (0.0-0.4); LARGE UNSTAINED CELL % 3.1 % (0.0-4.0); LYMPH # 1.6 K/mm3 (1.5-4.5); LYMPH % 17.3 % (24.0-44.0); MEAN CORPUSCULAR HEMOGLOBIN 30.7 pg (27.0-33.0); MEAN CORPUSCULAR HGB CONC 32.2 g/dl (32.0-36.5); MEAN CORPUSCULAR VOLUME 95.3 fl (80.0-96.0); MONO # 0.6 K/mm3 (0.0-0.8); NEUTROPHILS # 5.7 K/mm3 (1.8-7.7); NEUTROPHILS % 71.1 % (36.0-66.0); PLATELET COUNT, AUTOMATED 219 k/mm3 (150-450); RED CELL DISTRIBUTION WIDTH 14.6 % (11.5-14.5)
[2017-01-02 18:17] LABS: INR 1.26
[2017-01-02 18:33] LABS: ALBUMIN 2.8 GM/DL (3.2-5.2); ALBUMIN/GLOBULIN RATIO 1.17 (1.00-1.93); ALKALINE PHOSPHATASE 51 U/L (45-117); ALT/SGPT 12 U/L (12-78); ANION GAP 9 MEQ/L (8-16); AST/SGOT 6 U/L (15-37); BILIRUBIN,DIRECT < 0.1 MG/DL (0.0-0.2); BILIRUBIN,TOTAL 0.3 MG/DL (0.2-1.0); BLOOD UREA NITROGEN 27 MG/DL (7-18); CALCIUM LEVEL 9.1 MG/DL (8.8-10.2); CARBON DIOXIDE LEVEL 32 MEQ/L (21-32); CHLORIDE LEVEL 97 MEQ/L (98-107); CREATININE FOR GFR 2.12 MG/DL (0.55-1.02); GLUCOSE, FASTING 162 MG/DL (83-110); POTASSIUM SERUM 3.3 MEQ/L (3.5-5.1); SODIUM LEVEL 138 MEQ/L (136-145); TOTAL PROTEIN 5.2 GM/DL (6.4-8.2)
[2017-01-02] MEDS: SIMVASTATIN 10 MG TAB PO SCH (21:00)
[2017-01-02] MEDS ORDERED: POTASSIUM CHLORIDE 10 MEQ SR TABLET PO ONE (21:15)
[2017-01-02 21:29] LABS: MAGNESIUM LEVEL 1.6 MG/DL (1.8-2.4); T UPTAKE 36 % (30-39); THYROXINE (T4) 7.1 UG/DL (4.5-12.0)
--- NOTE | 2017-01-02 21:30 | REP ---
PORTABLE CHEST: AP portable view of the chest is performed and compared to prior study of 12/24/2016. Bilateral lower lobe interstitial fibrotic changes are stable. No new infiltrates are seen. The heart is not significantly enlarged. There is calcification and tortuosity of the thoracic aorta. The mediastinal silhouette is unchanged. Metallic prosthesis is seen in the proximal left humerus. IMPRESSION: Stable chronic fibrotic changes. No acute infiltrate. Signed by Juvenal Laird MD 01/03/2017 01:08 P
[2017-01-02] MEDS ORDERED: NS 1,000 ML IV SCH (21:44)
[2017-01-02] MEDS ORDERED: BISACODYL 5 MG TAB PO PRN (21:45)
[2017-01-02] MEDS ORDERED: ACETAMINOPHEN TAB 650MG DOSE (2X325MG) PO PRN (21:45)
[2017-01-02] MEDS ORDERED: ONDANSETRON 4MG/2ML VIAL (J2405) IV PRN (21:45)
[2017-01-02] MEDS ORDERED: CIPROFLOXACIN 400 MG in APPROPRIATE DILUENT 1 EA IV SCH (22:00)
[2017-01-02] MEDS ORDERED: traZODone 100 MG TAB PO PRN (22:00)
[2017-01-02] MEDS ORDERED: IPRATROPIUM 0.5MG/ALBUTEROL 2.5MG INH SOL UD 3ML (DUONEB)(J7620) NEB PRN (22:00)
[2017-01-02] MEDS ORDERED: ANUSOL HC CREAM 30GM PR PRN (22:00)
[2017-01-02] MEDS ORDERED: ALBUTEROL 90 MCG/ACT 8GM HFA INHALER INH PRN (22:00)
[2017-01-02] MEDS ORDERED: QUEtiapine FUMARATE 50 MG TAB PO PRN (22:00)
[2017-01-02] MEDS ORDERED: NITROGLYCERIN 0.4 MG SUBL TABLET SL PRN (22:00)
--- NOTE | 2017-01-02 22:20 | REPUSA ---
CT of the head Clinical history: altered mental status. Comparison: 07/17/2016. Protocol: Multiple axial CT images obtained with 5 mm slice thickness were obtained through the head without administration of contrast. Findings: The ventricles and sulci are symmetric but prominent in size bilaterally. There are periven tricular areas of low attenuation throughout the deep white matter. There is no evidence of acute hem orrhage or infarct. There is no midline shift, mass effect, or extra-axial fluid collection. The osse ous structures are unremarkable. The visualized paranasal sinuses and mastoid air cells are clear. Impression: No acute hemorrhage or infarct. Findings are consistent with mild age-related atrophy and chronic small vessel ischemic disease.
[2017-01-02] MEDS ORDERED: metroNIDAZOLE 750 MG in APPROPRIATE DILUENT 1 EA IV ONE (22:30)
[2017-01-02] MEDS ORDERED: metroNIDAZOLE 500 MG in APPROPRIATE DILUENT 1 EA IV SCH (23:00)
[2017-01-02] MEDS ORDERED: methylPREDNISolone INJ 40 MG/1 ML VIAL (J2920) IV SCH (23:00)
[2017-01-02] MEDS ORDERED: methylPREDNISolone INJ 125 MG/2 ML VIAL (J2930) IV SCH (23:00)
[2017-01-02] MEDS ORDERED: PANTOPRAZOLE 40MG INJ (PROTONIX) (C9113) IV SCH (23:00)
--- NOTE | 2017-01-02 23:20 | REPUSA ---
CT of the abdomen and pelvis without contrast Clinical statement: GI bleeding. Technique: Multiple axial CT images were obtained from the base of the lungs to the floor of the pelv is utilizing 5 mm axial slices without administration of contrast. Coronal and sagittal reconstructio ns were also obtained. Comparison: 09/21/2016. Findings: Chest: The visualized lung bases are clear. Abdomen: The kidneys are normal in size bilaterally. There is no evidence of hydronephrosis or nephro lithiasis. The liver, spleen, pancreas, gallbladder and adrenal glands are unremarkable. The aorta de monstrates moderate atherosclerosis, with normal caliber and contour. There is no abdominal lymphaden opathy or ascites. IVC filter is in place. Pelvis: The bowel is unremarkable, with no obstructive or inflammatory changes. The appendix is alfred l. The urinary bladder is within normal limits. There is no pelvic lymphadenopathy or ascites. The ot her pelvic structures appear unremarkable. Bones: There are no suspicious osseous abnormalities seen. Severe degenerative disc disease is noted from L1 through L4. Impression: 1. No obstructive or inflammatory bowel changes. 2. No evidence of hydronephrosis or nephrolithiasis. 3. Moderate diffuse atherosclerosis of the abdominal aorta. No evidence of aneurysm. 4. Severe spondylosis of the lumbar spine. 5. Overall, no significant interval change.
--- NOTE | 2017-01-02 23:33 | HPE ---
DATE OF ADMISSION: 01/02/2017 PRIMARY CARE PROVIDER: Dr. David Lee TUBE OPERATOR: Dr. Jonathon Curry PLANT SCIENCE PROFESSOR: Dr. Chester Valentine CHIEF COMPLAINT: Gastrointestinal (GI) bleeding. HISTORY OF PRESENT ILLNESS: Ms. Delacruz is a 76-year-old female with multiple past medical history who presented to the emergency room (ER) due to experiencing GI bleeding. Patient was accompanied by her daughter who expressed that the symptoms started about a week ago when she noticed that she had fresh red blood in her stool. Patient's daughter was helping her and she noticed fresh red blood on the toilet paper. Patient has chronic obstructive pulmonary disease (COPD) and she is on 3 liters nasal cannula. However, patient expressed that her dyspnea has been increased for the past week as well as feeling more tired and fatigued and any activities increase her dyspnea. Patient also noticed left lower abdominal quadrant pain that started last week at the same time that patient developed hematochezia. Also, at home patient has had on and off high temperature and feels warm. Patient denies nausea or vomiting. Patient denies rash or lesions anywhere on her body, especially on her abdominal area. Patient's daughter expressed that patient's food intake has decreased. Patient did not have any sick contact. Patient denies a new diet. Patient denies syncope, however patient expressed feeling lightheaded and dizzy with standing from a sitting position. Patient, however denies an episode of falls. Patient denies seizure-type activities. ALLERGIES: AMOXICILLIN, LISINOPRIL, OXYCODONE, PENICILLIN, SULFA DRUGS, TEMAZEPAM. HOME MEDICATIONS: - [place] one tablet by mouth four times a day as needed for pain - Ventolin HFA two puffs inhaled every 4 hours as needed for shortness of breath - ipratropium bromide/albuterol one solution inhaled every 4 hours as needed for shortness of breath - amlodipine besylate 2.5 mg by mouth daily - Eliquis 2.5 mg by mouth twice a day - aspirin 81 mg by mouth daily - calcium 500 plus D 500-200 mg one tablet by mouth twice a day - ferrous sulfate 325 mg by mouth daily - fluoxetine 60 mg by mouth daily - fluticasone propionate two sprays intranasally twice a day per nostril - furosemide 40 mg by mouth daily - gabapentin 300 mg by mouth twice a day - gabapentin 600 mg by mouth nightly - hydrocortisone one drop per rectum twice a day as needed for hemorrhoids - magnesium oxide 400 mg by mouth daily - multivitamin one tablet by mouth daily - nitroglycerin 0.4 mg sublingual as needed for angina - oxybutynin chloride 15 mg by mouth daily - pantoprazole sodium 40 mg by mouth daily - prednisone 10 mg by mouth daily - quetiapine fumarate 50 mg by mouth nightly as needed mood - Advair Diskus 250-50 one puff inhaled twice a day - simvastatin 10 mg by mouth nightly - sucralfate 1 gram by mouth before food - Spiriva inhaler one inhalation INH daily - trazodone 100 mg by mouth nightly as needed for sleep PAST MEDICAL HISTORY: 1. Pulmonary embolism (PE). 2. COPD, on two liters nasal cannula at home. 3. Anxiety. 4. Depression. 5. Congestive heart failure with diastolic dysfunction. 6. Gastroesophageal reflux disease (GERD). 7. GI bleed. 8. Shingles. PAST SURGICAL HISTORY: 1. Bilateral mastectomy. 2. Tubal ligation. 3. Ankle arthroplasty. 4. Left shoulder arthroplasty. 5. Left ankle arthroplasty. 6. Inferior vena cava (IVC) placement. 7. EGD. 8. Colonoscopy. SOCIAL HISTORY: The patient lives with her daughter and her grandson. Patient has smoked since age 13 until 5 years ago, about two packs a day. Patient occasionally drinks alcoholic beverages. Patient denies illicit drug use. Patient has one cat and one dog. FAMILY HISTORY: Patient has one brother and three sisters, one of the sisters has breast cancer and one of the sisters has lung cancer. Patient does not know about her father, however patient's mother due to diabetes and heart conditions. REVIEW OF SYSTEMS: GENERAL: Patient had fever and chills, however no night sweats. Patient has not lost or gained weight. HEENT: Patient has lightheadedness and dizziness with activities and standing from a seated position. Patient denies problem with chewing food or sinusitis. NECK: Patient denies lumps, bumps, or decreased range of motion of her neck. HEART: Patient denies palpitations, racing or skipping heartbeat or chest pain. LUNGS: Patient denies shortness of breath that has increased for the past week. ABDOMEN: Patient has left lower abdominal quadrant pain as well as hematochezia for the past week. However, patient denies nausea and vomiting. NEUROLOGIC: Patient denies history of transient ischemic attack (TIA), seizure or seizure-type activities. PHYSICAL EXAMINATION: VITAL SIGNS: Temperature 99.1, pulse 82, respiratory rate 16, blood pressure 124/57, pulse oximetry 87%, patient is on 2 liters nasal cannula. HEENT: Normocephalic, atraumatic. Pupils are equal and reactive to light. Oral mucosa is moist. GENERAL PRESENTATION: Patient is lying in bed in no acute distress. Patient is awake, alert, and oriented to time, place, and person. NECK: Soft, supple. Jugular venous distention (JVD) cannot be evaluated due to extended neck. HEART: Regular rate and rhythm, normal S1, S2. NEUROLOGIC: Cranial nerves II-XII was intact. EXTREMITIES: Patient has mild lower extremity edema. +2 pulses in both lower extremities. Patient has decreased range of motion on the right lower extremity compared to the left lower extremity. However, patient has normal range of motion in both upper extremities. LABORATORY DATA: White blood cells 8, red blood cells 2.58, hemoglobin 7.9, hematocrit 24.6, MCV 95.3, MCH 30.7, MCHC 32.2, RDW 14.6, platelet count 219, neutrophil percentage 71.1, lymphocyte percentage 17.3, monocyte percentage 7, eosinophil percentage 1.1, basophil percentage 0.3, leukocyte percentage 3.1. Bicarbonate standard 33.9, ABG pH 7.42, ABG pCO2 56.8, ABG pO2 90.2, ABG HCO3 36 , ABG total CO2 37.8, ABG oxygen saturation 96.6, ABG base excess 10.2. PT 16.1, INR 1.26, aPTT 29.7. Sodium 137, potassium 3.3, chloride 97, carbon dioxide 32, anion gap 9, carbon dioxide 32, BUN 27, creatinine 2.12, glomerular filtration rate 24, fasting glucose 162, calcium 9.1, magnesium 1.6, total bilirubin 0.3, direct bilirubin less than 0.1, AST 6, ALT 12, alkaline phosphatase 51, ammonia 16, total creatine kinase 20, CK-MB 1, CK-MB relative index 5, troponin I less than 0.02, C- reactive protein 11.6, BNP 134, total protein 5.2, albumin 2.8, TSH 3.78, free T4 index 2.6, T4 7.1, T3 uptake 36. Urine color yellow, urine appearance clear, urine pH 5, urine specific gravity 1.008, urine protein negative, urine glucose negative, urine ketones negative, urine blood negative, urine nitrite negative, urine bilirubin negative, urine urobilinogen 0.2, urine leukocyte esterase negative, urine white blood cells 1, urine red blood cells 0, urine hyaline casts 10. Blood culture is pending. Urine culture is pending. IMAGING STUDIES: Chest x-ray shows stable chronic fibrotic changes, no acute infiltrate. ASSESSMENT AND PLAN: 1. Gastrointestinal (GI) bleeding. This is possibly secondary to diverticulitis. At this point, patient is on a clear diet. We will transfuse two units of red blood cells. Also, we are checking hemoglobin and hematocrit every 4 hours. Also, we have ordered a CT of abdomen without contrast, result is pending at this time. I have started patient on Cipro and Flagyl renally dosed. Also, patient was on Eliquis and aspirin which we have held these medications. Also, patient was on prednisone 10 mg by mouth, however we have held this medication and we switched to Solu-Medrol. Dr. Villalba has been consulted. Also, we will continue patient on Carafate, Protonix IV, as well as IV fluid. 2. Pulmonary embolus (PE). At home, patient was on Eliquis, however are holding Eliquis at this time due to gastrointestinal (GI) bleeding. 3. Chronic obstructive pulmonary disease (COPD). We will continue patient on home breathing treatment. Also, patient was on prednisone 10 mg by mouth, however are holding prednisone by mouth and we have started patient on Solu-Medrol IV due to gastrointestinal (GI) bleeding. Also, we are continuing patient on oxygen nasal cannula with 88-92% saturation. 4. Anxiety. We will continue patient on Prozac. 5. Depression. We will continue patient on Seroquel and Prozac. 6. Diastolic congestive heart failure. Due to the gastrointestinal (GI) bleeding, we have started patient on two units of red blood cells. Also, we will continue patient on IV fluid. At this time, patient is not hypervolemic. We will continue to monitor patient for any abnormal symptoms. 7. Gastroesophageal reflux disease (GERD). Patient is on IV Protonix at this time. Also, we will continue patient on Carafate. 8. Deep venous thrombosis (DVT) prophylaxis. Patient is on thromboembolism deterrents (TEDs) and sequential compression devices. 9. Insomnia. Patient is on trazodone 10 mg by mouth. 10. Hypomagnesemia. We will continue patient on magnesium oxide 400 mg by mouth daily. 11. Iron deficiency. We will continue patient on ferrous sulfate 325 mg by mouth daily. My preceptor for this patient encounter was Dr. Rita Mayorga. The preceptor was physically present in the building during the encounter and was fully available. As needed, all aspects of the patient interview, examination, medical decision making process, and medical care plan development were reviewed and approved by the preceptor. The preceptor is aware and concurs with the plan as stated in the body of this note and will attest to such by his/her cosignature. I have both independently examined this patient as well as reviewed the H&P. I have discussed in detail with the resident the findings and plan of treatment as documented in the residents note. I will continue to follow the patient and offer further guidance to the patients care as necessary during this hospital stay. Rita TERRELL
[2017-01-03] VITALS (12 sets, daily range): BP systolic 125–139; BP diastolic 47–80; O2SAT 99
[2017-01-03] MEDS: GABAPENTIN 300 MG CAP PO SCH ×4 (01:51→22:06)
[2017-01-03] MEDS: PANTOPRAZOLE 40MG INJ (PROTONIX) (C9113) IV SCH ×3 (01:51→22:06)
[2017-01-03] MEDS: IPRATROPIUM 0.5MG/ALBUTEROL 2.5MG INH SOL UD 3ML (DUONEB)(J7620) NEB SCH ×4 (01:54→19:18)
[2017-01-03] MEDS: metroNIDAZOLE 500 MG in APPROPRIATE DILUENT 1 EA IV SCH ×2 (03:11→08:36)
[2017-01-03 05:02] LABS: BASO % 0.1 % (0.0-1.0); EOS % 0.6 % (0.0-3.0); LARGE UNSTAINED CELL # 0.1 K/mm3 (0.0-0.4); LARGE UNSTAINED CELL % 1.3 % (0.0-4.0); LYMPH # 0.6 K/mm3 (1.5-4.5); LYMPH % 6.6 % (24.0-44.0); MEAN CORPUSCULAR HEMOGLOBIN 31.3 pg (27.0-33.0); MEAN CORPUSCULAR HGB CONC 33.5 g/dl (32.0-36.5); MEAN CORPUSCULAR VOLUME 93.4 fl (80.0-96.0); MONO # 0.2 K/mm3 (0.0-0.8); MONO % 3.4 % (0.0-5.0); NEUTROPHILS # 6.3 K/mm3 (1.8-7.7); PLATELET COUNT, AUTOMATED 203 k/mm3 (150-450); RED CELL DISTRIBUTION WIDTH 14.7 % (11.5-14.5); WHITE BLOOD COUNT 7.2 K/mm3 (4.0-10.0)
[2017-01-03 05:18] LABS: ALBUMIN 2.8 GM/DL (3.2-5.2); ALBUMIN/GLOBULIN RATIO 1.04 (1.00-1.93); BILIRUBIN,TOTAL 0.7 MG/DL (0.2-1.0); CALCIUM LEVEL 8.9 MG/DL (8.8-10.2); CREATININE FOR GFR 2.04 MG/DL (0.55-1.02); GLOMERULAR FILTRATION RATE 25.1 (>39); MAGNESIUM LEVEL 1.7 MG/DL (1.8-2.4); POTASSIUM SERUM 3.4 MEQ/L (3.5-5.1); TOTAL PROTEIN 5.5 GM/DL (6.4-8.2)
[2017-01-03] MEDS: TIOTROPIUM INHALER/CAPSULE (SPIRIVA) INH SCH (07:53)
[2017-01-03] MEDS: ADVAIR HFA 115/21MCG INHALER INH SCH ×2 (07:53→20:29)
--- NOTE | 2017-01-03 08:21 | ECGEPIP ---
Stationary ECG Study [facility] - ED Test Date: 2017-01-02 Pat Name: MONSERRAT VELASCO Department: Room: - Gender: F Cell Preparer: eliel : 1940 Requested By: Larissa Mckeon Order Number: [id number] Reading MD: Amilcar Eduardo Measurements Intervals [place] Rate: 72 P: -50 [place]: 119 QRS: -3 QRSD: 88 T: 34 QT: 395 QTc: 433 Interpretive Statements SINUS RHYTHM WITH SHORT OH INTERVAL POSSIBLE RIGHT VENTRICULAR CONDUCTION DELAY NONSPECIFIC T-WAVE ABNORMALITY SIMILAR TO 09/21/16 Electronically Signed On 01-03-2017 8:21:02 EDT by Amilcar Eduardo
[2017-01-03] MEDS: FLUTICASONE PROP 0.05% NASAL SPRAY 16 GM (FLONASE) SCH ×2 (08:35→22:07)
[2017-01-03] MEDS: SUCRALFATE 1 GM TAB PO SCH ×3 (08:36→17:07)
[2017-01-03] MEDS: oxyBUTYnin *DITROPAN XL* 5 MG TABCR PO SCH (08:36)
[2017-01-03] MEDS: methylPREDNISolone INJ 40 MG/1 ML VIAL (J2920) IV SCH ×2 (08:36→17:07)
[2017-01-03] MEDS: MULTIVITAMINS/MINERALS THERAP 1 TAB PO SCH (08:37)
[2017-01-03] MEDS: FERROUS SULFATE 325MG TAB PO SCH (08:37)
[2017-01-03] MEDS: LACTOBACILLUS ACIDOPHILUS CAP (BACID) PO SCH ×3 (08:37→17:07)
[2017-01-03] MEDS: FLUoxetine 20 MG CAP PO SCH (08:37)
[2017-01-03] MEDS: MAGNESIUM OXIDE 400 MG TAB (MAG-OX) PO SCH (08:37)
[2017-01-03] MEDS ORDERED: PANTOPRAZOLE 40MG INJ (PROTONIX) (C9113) IV SCH (09:00)
--- NOTE | 2017-01-03 13:39 | IPNPDOC ---
Date Seen The patient was seen on 01/03/17. Progress Note Hospitalist Progress Note Subjective: Patient and family deny any further bleeding. The patient's main complaint is pain under her right axilla at the site of her prior mastectomy. Family does report that she still seems confused. Objective: Physical Exam: Vitals: Vital Sign - Last 24 Hours 01/02/17 01/02/17 01/02/17 01/02/17 15:28 16:10 16:10 16:12 Temp 99.1 Pulse 82 66 Resp 16 B/P (MAP) 124/57 (79) Pulse Ox 87 95 O2 Delivery Nasal Cannula Nasal Cannula O2 Flow Rate 3.0 3.0 01/02/17 01/02/17 01/02/17 01/02/17 16:27 16:42 16:57 17:12 Pulse 63 63 59 59 Pulse Ox 97 97 87 01/02/17 01/02/17 01/02/17 01/02/17 17:27 17:42 17:57 18:12 Pulse 59 58 58 56 Pulse Ox 96 96 96 01/02/17 01/02/17 01/02/17 01/02/17 18:27 18:42 18:57 19:03 Pulse 57 57 55 B/P (MAP) 82/42 (55) Pulse Ox 97 96 98 01/02/17 01/02/17 01/02/17 01/02/17 19:05 19:08 19:12 19:19 Pulse 55 B/P (MAP) 78/47 (57) 80/47 (58) 81/48 (59) Pulse Ox 97 01/02/17 01/02/17 01/02/17 01/02/17 19:26 19:27 19:42 19:57 Pulse 53 53 52 B/P (MAP) 92/53 (66) Pulse Ox 97 98 96 01/02/17 01/02/17 01/02/17 01/02/17 20:02 20:17 20:28 20:31 Pulse 49 B/P (MAP) 88/46 (60) 87/48 (61) 106/50 (68) Pulse Ox 97 01/02/17 01/02/17 01/02/17 01/02/17 20:32 20:46 20:47 20:59 Pulse 49 51 B/P (MAP) 93/55 (68) 93/52 (66) Pulse Ox 97 97 01/02/17 01/02/17 01/02/17 01/02/17 21:14 21:16 21:29 21:31 Pulse 54 50 B/P (MAP) 94/54 (67) 89/51 (64) Pulse Ox 92 94 01/02/17 01/02/17 01/02/17 01/02/17 21:44 21:46 21:59 22:01 Pulse 66 52 B/P (MAP) 90/42 (58) 98/60 (73) Pulse Ox 94 95 01/02/17 01/02/17 01/02/17 01/02/17 22:22 22:29 22:31 22:39 Pulse 50 B/P (MAP) 105/51 (69) 106/54 (71) 103/55 (71) Pulse Ox 96 01/02/17 01/02/17 01/02/17 01/02/17 22:54 23:02 23:09 23:16 Temp 97.1 Pulse 68 51 Resp 20 B/P (MAP) 114/58 (76) 104/52 (69) Pulse Ox 98 01/02/17 01/02/17 01/03/17 01/03/17 23:31 23:46 00:01 01:15 Temp 97.5 Pulse 44 34 50 56 Resp 20 B/P (MAP) 102/53 (69) 117/55 (75) 114/54 (74) 134/62 (86) Pulse Ox 97 99 99 O2 Delivery Nasal Cannula O2 Flow Rate 3.0 01/03/17 01/03/17 01/03/17 01/03/17 01:15 01:25 01:25 01:57 Temp 97.5 Pulse 56 52 52 Resp 20 16 16 B/P (MAP) 134/62 (86) 132/47 (75) 132/47 (75) Pulse Ox 99 99 99 99 O2 Delivery Nasal Cannula Nasal Cannula Nasal Cannula Nasal Cannula O2 Flow Rate 3.0 2.0 2.0 2.0 01/03/17 01/03/17 01/03/17 01/03/17 01:57 01:57 02:00 02:00 Pulse 53 67 55 55 Resp 16 16 B/P (MAP) 135/59 (84) 135/59 (84) Pulse Ox 99 99 O2 Delivery Nasal Cannula Nasal Cannula O2 Flow Rate 2.0 2.0 01/03/17 01/03/17 01/03/17 01/03/17 03:00 04:00 04:32 05:00 Temp 98.2 Pulse 60 63 58 Resp 16 18 16 B/P (MAP) 139/75 (96) 129/59 (82) 136/63 (87) Pulse Ox 94 94 93 O2 Delivery Nasal Cannula Nasal Cannula Nasal Cannula Nasal Cannula O2 Flow Rate 2.0 2.0 2.0 2.0 01/03/17 01/03/17 01/03/17 01/03/17 06:00 08:00 08:00 12:00 Temp 97.8 97.9 Pulse 54 59 64 Resp 16 18 18 B/P (MAP) 126/59 (81) 125/60 (81) 127/60 (82) Pulse Ox 94 93 90 O2 Delivery Nasal Cannula Nasal Cannula Nasal Cannula Nasal Cannula O2 Flow Rate 2.0 2.0 2.0 2.0 General: Awake, alert, no acute distress HEENT: Normocephalic, atraumatic, extraocular movements intact, moist mucous membranes CV: Regular rate and rhythm Lungs: Clear to auscultation bilaterally Abd: Soft, nontender, nondistended Extremities: No edema of the bilateral lower extremities, the right axilla along the prior mastectomy scar is very tender to palpation but there is no appreciable erythema or warmth Neuro: Alert and oriented 3, however, when the patient answers some of my questions, her family reports to me that the answer she is giving are not accurate, such as how long ago the pain under her axilla began Psych: Normal mood and affect Labs and Imaging: Laboratory Tests 01/02/17 17:44 Red Blood Count 2.58 L, Mean Corpuscular Volume 95.3, Mean Corpuscular Hemoglobin 30.7, Mean Corpuscular Hemoglobin Concent 32.2, Red Cell Distribution Width 14.6 H, Neutrophils (%) (Auto) 71.1 H, Lymphocytes (%) (Auto ) 17.3 L, Monocytes (%) (Auto) 7.0 H, Eosinophils (%) (Auto) 1.1, Basophils (%) (Auto) 0.3, Neutrophils # (Auto) 5.7, Lymphocytes # (Auto) 1.6, Monocytes # ( Auto) 0.6, Eosinophils # (Auto) 0.1, Basophils # (Auto) 0.0 01/03/17 04:38 Red Blood Count 3.30 L, Mean Corpuscular Volume 93.4, Mean Corpuscular Hemoglobin 31.3, Mean Corpuscular Hemoglobin Concent 33.5, Red Cell Distribution Width 14.7 H, Neutrophils (%) (Auto) 88.0 H, Lymphocytes (%) (Auto ) 6.6 L, Monocytes (%) (Auto) 3.4, Eosinophils (%) (Auto) 0.6, Basophils (%) ( Auto) 0.1, Neutrophils # (Auto) 6.3, Lymphocytes # (Auto) 0.6 L, Monocytes # ( Auto) 0.2, Eosinophils # (Auto) 0.0, Basophils # (Auto) 0.0, Calcium Level 8.9, Aspartate Amino Transf (AST/SGOT) 8 L, Alanine Aminotransferase (ALT/SGPT) 12, Alkaline Phosphatase 47, Total Bilirubin 0.7 #, Total Protein 5.5 L, Albumin 2.8 L 01/03/17 10:12 Assessment and Plan: 76-year-old female with history of PE, COPD on 2 L chronically at home, anxiety/ depression, chronic diastolic CHF, GERD, history of GI bleed, history of shingles, history of bilateral mastectomy who presented with bright red blood per rectum and is admitted with a lower GI bleed. 1. Lower GI bleed: Initially, the patient was hypotensive with a hemoglobin of 7.9. After IV fluids and transfusion of 2 units of PRBCs, her hemoglobin has improved to 10.3, and her blood pressure has normalized. The bleeding has stopped. She had an EGD in August of 2016 which was unremarkable, and a Cscope in May 2015 which was significant only for internal hemorrhoids and sigmoid diverticula. I have discusssed the case with Dr. Still of general surgery, and he feels that given that the bleeding has stopped and she has stabilized, and that she recently had unremarkable scopes, it is unnecessary to rescope her at this time. However, he said to call him back as he is happy to see her if she were to start bleeding again. Currently holding home eliquis and aspirin. Continue twice a day IV PPI and clear liquid diet. Patient was initially started on Cipro and Flagyl prior to CT imaging, as there was some concern that potentially this was secondary to an infection. However, CT of the abdomen and pelvis does not have any acute findings and nothing that would suggest infection. We will stop Cipro and Flagyl. 2. Anemia secondary to acute blood loss: The patient's baseline hemoglobin appears to be around 9-10. Upon arrival, her hemoglobin was 7.9 and she was hypotensive. After transfusion of 2 units of PRBCs, this has improved to 10.3. We'll continue to trend serial hemoglobins. 3. Acute on chronic kidney disease: The patient's baseline creatinine appears to be in the mid ones. Her creatinine upon arrival was 2.12, and I suspect that this is secondary to her acute blood loss anemia. It has already improved to 2.04, and we'll continue to trend this. Her blood pressure has now rebounded, and she is drinking well. Currently holding home Lasix. 4. History of PE: The patient currently has an IVC filter in place, but she has also been on eliquis. We're currently holding the eliquis given the current bleed. In the recent past, she was on Coumadin, but she was repeatedly being admitted to the hospital for supratherapeutic INRs even as high as 7. Family states that the eliquis has been working much better for her. 5. COPD on 2 L at home: Upon admission, it was felt the patient had a mild wheeze. We are currently holding her home prednisone and we'll continue Solu- Medrol. Also continue home spurs Kathrin, Advair, Flonase, DuoNeb's. 6. Anxiety/depression: Continue home Seroquel, trazodone, Prozac. 7. Chronic diastolic CHF: Echocardiogram completed in July of this year shows a normal EF with grade 1 diastolic dysfunction. The patient's blood pressure has normalized, and since she is taking in liquids well, we will stop the IV fluids. We are currently holding her home Lasix. 8. GERD: Currently on IV PPI. Also continue home Carafate. 9. History of bilateral mastectomy, with current pain and right axilla: We will assess this area with an ultrasound to rule out any seroma. 10. Hypertension: Currently holding home Norvasc as she was hypotensive upon admission. 11. Hypokalemia and hypomagnesemia: Replacing. DVT prophylaxis: SCDs Dispo: pending stabilization of her hemoglobin VS, I&O, 24H, [facility] Vital Signs/I&O Vital Signs Date Time Temp Pulse Resp B/P (MAP) Pulse Ox O2 Delivery O2 Flow Rate FiO2 01/03/17 12:00 97.9 64 18 127/60 (82) 90 Nasal Cannula 2.0 I&O- Last 24 Hours up to 6 AM 01/03/17 06:00 Intake Total 720 ml Output Total 345 ml Balance 375 ml Laboratory Data 24H LABS Laboratory Tests 2 01/02/17 17:35: Blood Gas Bicarbonate Standard 33.9H, Arterial Blood pH 7.420, Arterial Blood Partial Pressure CO2 56.8H, Arterial Blood Partial Pressure O2 90.2, Arterial Blood Total CO2 37.8H, Arterial Blood HCO3 36.0H, Arterial Blood Base Excess 10.2H, Arterial Blood Oxygen Saturation 96.6 01/02/17 17:44: White Blood Count 8.0, Red Blood Count 2.58L, Hemoglobin 7.9L, Hematocrit 24.6L , Mean Corpuscular Volume 95.3, Mean Corpuscular Hemoglobin 30.7, Mean Corpuscular Hemoglobin Concent 32.2, Red Cell Distribution Width 14.6H, Platelet Count 219, Neutrophils (%) (Auto) 71.1H, Lymphocytes (%) (Auto) 17.3L, Monocytes (%) (Auto) 7.0H, Eosinophils (%) (Auto) 1.1, Basophils (%) (Auto) 0.3 , Neutrophils # (Auto) 5.7, Lymphocytes # (Auto) 1.6, Monocytes # (Auto) 0.6, Eosinophils # (Auto) 0.1, Basophils # (Auto) 0.0, Large Unclassified Cells % 3.1 , Large Unclassified Cells # 0.3, Prothrombin Time 16.1H, Prothromb Time International Ratio 1.26, Activated Partial Thromboplast Time 29.7, Anion Gap 9 , Glomerular Filtration Rate 24.0L, Lactic Acid Level 2.1*H, Calcium Level 9.1, Magnesium Level 1.6L, Aspartate Amino Transf (AST/SGOT) 6L, Alanine Aminotransferase (ALT/SGPT) 12, Alkaline Phosphatase 51, Total Bilirubin 0.3, Direct Bilirubin < 0.1, Ammonia 16, Total Creatine Kinase 20L, Creatine Kinase MB 1.0, Creatine Kinase MB Relative Index 5.00H, Troponin I < 0.02, C-Reactive Protein, Quantitative 11.60H, B-Type Natriuretic Peptide 134H, Total Protein 5.2L, Albumin 2.8L, Albumin/Globulin Ratio 1.17, Thyroid Stimulating Hormone ( TSH) 3.780H, Free Thyroxine Index 2.6, Thyroxine (T4) 7.1, Triiodothyronine (T3 ) Uptake 36 01/02/17 18:06: Urine Appearance CLEAR, Urine Color YELLOW, Urine pH 5.0, Urine Specific [place] 1.008, Urine Protein NEGATIVE, Urine Glucose (UA) NEGATIVE, Urine Ketones NEGATIVE, Urine Urobilinogen 0.2, Urine Bilirubin NEGATIVE, Urine Leukocyte Esterase NEGATIVE, Urine Blood NEGATIVE, Urine Nitrite NEGATIVE, Urine WBC (Auto) 1, Urine RBC (Auto) 0, Urine Hyaline Casts (Auto) 10, Urine Bacteria (Auto) NEGATIVE, Urine Squamous Epithelial Cells 0, Urine Mucus (Auto) SMALL, Urine Sperm (Auto) 01/02/17 22:40: Lactic Acid Followup at 4 Hours 1.5 01/03/17 00:07: Total Creatine Kinase 35, Creatine Kinase MB 1.0, Creatine Kinase MB Relative Index 2.85, Troponin I < 0.02 01/03/17 04:38: Total Creatine Kinase 31, Creatine Kinase MB 1.0, Creatine Kinase MB Relative Index 3.22, Troponin I < 0.02, White Blood Count 7.2, Red Blood Count 3.30L, Hemoglobin 10.3#L, Hematocrit 30.8L, Mean Corpuscular Volume 93.4, Mean Corpuscular Hemoglobin 31.3, Mean Corpuscular Hemoglobin Concent 33.5, Red Cell Distribution Width 14.7H, Platelet Count 203, Neutrophils (%) (Auto) 88.0H, Lymphocytes (%) (Auto) 6.6L, Monocytes (%) (Auto) 3.4, Eosinophils (%) (Auto) 0.6, Basophils (%) (Auto) 0.1, Neutrophils # (Auto) 6.3, Lymphocytes # (Auto) 0.6L, Monocytes # (Auto) 0.2, Eosinophils # (Auto) 0.0, Basophils # (Auto) 0.0, Large Unclassified Cells % 1.3, Large Unclassified Cells # 0.1, Anion Gap 5L, Glomerular Filtration Rate 25.1L, Blood Urea Nitrogen 28H, Creatinine 2.04H, Sodium Level 137, Potassium Level 3.4L, Chloride Level 99, Carbon Dioxide Level 33H, Calcium Level 8.9, Aspartate Amino Transf (AST/SGOT) 8L, Alanine Aminotransferase (ALT/SGPT) 12, Alkaline Phosphatase 47, Total Bilirubin 0.7#, Total Protein 5.5L, Albumin 2.8L, Magnesium Level 1.7L, Albumin/Globulin Ratio 1.04 CBC/BMP Laboratory Tests 01/02/17 17:44 Red Blood Count 2.58 L, Mean Corpuscular Volume 95.3, Mean Corpuscular Hemoglobin 30.7, Mean Corpuscular Hemoglobin Concent 32.2, Red Cell Distribution Width 14.6 H, Neutrophils (%) (Auto) 71.1 H, Lymphocytes (%) (Auto ) 17.3 L, Monocytes (%) (Auto) 7.0 H, Eosinophils (%) (Auto) 1.1, Basophils (%) (Auto) 0.3, Neutrophils # (Auto) 5.7, Lymphocytes # (Auto) 1.6, Monocytes # ( Auto) 0.6, Eosinophils # (Auto) 0.1, Basophils # (Auto) 0.0 01/03/17 04:38 Red Blood Count 3.30 L, Mean Corpuscular Volume 93.4, Mean Corpuscular Hemoglobin 31.3, Mean Corpuscular Hemoglobin Concent 33.5, Red Cell Distribution Width 14.7 H, Neutrophils (%) (Auto) 88.0 H, Lymphocytes (%) (Auto ) 6.6 L, Monocytes (%) (Auto) 3.4, Eosinophils (%) (Auto) 0.6, Basophils (%) ( Auto) 0.1, Neutrophils # (Auto) 6.3, Lymphocytes # (Auto) 0.6 L, Monocytes # ( Auto) 0.2, Eosinophils # (Auto) 0.0, Basophils # (Auto) 0.0, Calcium Level 8.9, Aspartate Amino Transf (AST/SGOT) 8 L, Alanine Aminotransferase (ALT/SGPT) 12, Alkaline Phosphatase 47, Total Bilirubin 0.7 #, Total Protein 5.5 L, Albumin 2.8 L 01/03/17 10:12 Microbiology Microbiology 7/23/17 Blood Culture, Received Pending 01/02/17 Blood Culture, Received Pending 01/02/17 Urine Culture, Received Pending MARK ANTHONY MEJIA Jan 03, 2017 13:39
[2017-01-03] MEDS ORDERED: POTASSIUM CHLORIDE 10 MEQ SR TABLET PO ONE (14:00)
--- NOTE | 2017-01-03 17:01 | REP ---
ULTRASOUND RIGHT AXILLARY REGION: Real-time sonographic evaluation of the right axillary region was performed in the region of pain. Patient states that there is a palpable area in this region but according to the technologist no palpable abnormality was appreciated. Real-time sonographic evaluation of the right axillary region in the area of clinical questions demonstrates no evidence of a cystic or solid nodule. Clinical correlation and followup is recommended. IMPRESSION: No cystic or solid nodule at the site of the reported area of pain and palpable abnormality. Clinical correlation and followup is recommended. Further evaluation may be made with MRI if clinically indicated. Signed by Juvenal Laird MD 01/03/2017 05:27 P
[2017-01-03] MEDS: MAG SULF 1GM/100ML (MAG RUN) 1 GM in APPROPRIATE DILUENT 1 EA IV SCH ×2 (17:07→18:33)
[2017-01-03] MEDS: SIMVASTATIN 10 MG TAB PO SCH (22:06)
[2017-01-04] VITALS: BP 133/63
[2017-01-04] MEDS: methylPREDNISolone INJ 40 MG/1 ML VIAL (J2920) IV SCH ×2 (00:50→09:00)
[2017-01-04] MEDS: IPRATROPIUM 0.5MG/ALBUTEROL 2.5MG INH SOL UD 3ML (DUONEB)(J7620) NEB SCH ×3 (01:59→18:47)
[2017-01-04 04:00] VITALS: BP 142/65
[2017-01-04 05:33] LABS: BASO % 0.1 % (0.0-1.0); LARGE UNSTAINED CELL # 0.2 K/mm3 (0.0-0.4); LARGE UNSTAINED CELL % 1.4 % (0.0-4.0); LYMPH # 0.5 K/mm3 (1.5-4.5); LYMPH % 4.7 % (24.0-44.0); MEAN CORPUSCULAR HEMOGLOBIN 31.2 pg (27.0-33.0); MEAN CORPUSCULAR VOLUME 94.5 fl (80.0-96.0); MONO # 0.4 K/mm3 (0.0-0.8); MONO % 3.6 % (0.0-5.0); NEUTROPHILS # 10.2 K/mm3 (1.8-7.7); NEUTROPHILS % 90.2 % (36.0-66.0); PLATELET COUNT, AUTOMATED 232 k/mm3 (150-450); RED CELL DISTRIBUTION WIDTH 14.6 % (11.5-14.5); WHITE BLOOD COUNT 11.3 K/mm3 (4.0-10.0)
[2017-01-04 06:44] LABS: ALBUMIN 3.1 GM/DL (3.2-5.2); ALBUMIN/GLOBULIN RATIO 1.07 (1.00-1.93); BILIRUBIN,TOTAL 0.4 MG/DL (0.2-1.0); CALCIUM LEVEL 8.9 MG/DL (8.8-10.2); CREATININE FOR GFR 1.76 MG/DL (0.55-1.02); GLOMERULAR FILTRATION RATE 29.7 (>39); MAGNESIUM LEVEL 2.3 MG/DL (1.8-2.4); POTASSIUM SERUM 4.2 MEQ/L (3.5-5.1)
[2017-01-04 08:00] VITALS: BP 156/68
[2017-01-04] MEDS: TIOTROPIUM INHALER/CAPSULE (SPIRIVA) INH SCH (08:15)
[2017-01-04] MEDS: ADVAIR HFA 115/21MCG INHALER INH SCH ×2 (08:15→19:33)
[2017-01-04] MEDS: FLUTICASONE PROP 0.05% NASAL SPRAY 16 GM (FLONASE) SCH ×2 (09:00→21:42)
[2017-01-04] MEDS: oxyBUTYnin *DITROPAN XL* 5 MG TABCR PO SCH (09:22)
[2017-01-04] MEDS: MULTIVITAMINS/MINERALS THERAP 1 TAB PO SCH (09:22)
[2017-01-04] MEDS: LACTOBACILLUS ACIDOPHILUS CAP (BACID) PO SCH ×3 (09:22→17:51)
[2017-01-04] MEDS: FERROUS SULFATE 325MG TAB PO SCH (09:22)
[2017-01-04] MEDS: MAGNESIUM OXIDE 400 MG TAB (MAG-OX) PO SCH (09:22)
[2017-01-04] MEDS: FLUoxetine 20 MG CAP PO SCH (09:22)
[2017-01-04] MEDS: PANTOPRAZOLE 40MG INJ (PROTONIX) (C9113) IV SCH (09:22)
[2017-01-04] MEDS: SUCRALFATE 1 GM TAB PO SCH ×3 (09:23→17:51)
[2017-01-04] MEDS: GABAPENTIN 300 MG CAP PO SCH ×3 (09:23→21:42)
[2017-01-04 12:00] VITALS: BP 156/66
--- NOTE | 2017-01-04 13:06 | IPNPDOC ---
Date Seen The patient was seen on 01/04/17. Progress Note SUBJECTIVE: Patient is oriented to person but not place time or situation. She denies any pain or shortness of breath, no further bloody bowel movements OBJECTIVE PHYSICAL EXAMINATION: VITAL SIGNS: Please see below. GENERAL: Obese elderly female lying in bed accompanied by her daughter the patient does not appear to be in any acute distress whatsoever HEENT: He was likely round reactive to light she has moist membranes do not appreciate any elevation of CVP CARDIOVASCULAR: S1-S2 irregularly irregular not tachycardic. RESPIRATORY: Diminished breath sounds at the bases but otherwise fairly good movement and did not appreciate any wheeze. ABDOMINAL: Bowel sounds present abdomen soft and nontender it is obese EXTREMITIES: No clubbing cyanosis or appreciable edema LABORATORY DATA: Please see below. MICROBIOLOGY: Please see below. IMAGING: Breast ultrasound:No cystic or solid nodule at the site of the reported area of pain and palpable abnormality. Clinical correlation and followup is recommended. DVT prophylaxis ordered?: Sequentials and teds no pharmacological agents in the setting of recent GI bleeding ASSESSMENT AND PLAN: This is a 76-year-old female with GI bleeding confusion. 1. GI bleed: Appears resolved, likely secondary to anticoagulation. Hemoglobin stabilized following 2 units of PRBCs. She had an EGD in August of 2016 which was unremarkable, and a Cscope in May 2015 which was significant only for internal hemorrhoids and sigmoid diverticula. At this time I will transition her back to her home PPI and advance her diet as tolerated. 2. Anemia secondary to acute blood loss: As mentioned above stable we'll continue to monitor daily 3. Acute on chronic kidney disease: The patient's baseline creatinine appears to be in the mid ones. Her creatinine upon arrival was 2.12, her diuretic is on hold she is tolerating by mouth she is status post transfusion renal function continues to trend towards her baseline simply continue to monitor for now 4. History of PE: The patient currently is unable to tolerate anticoagulation fortunately she does have an IVC filter in place. She was previously on Coumadin for now we will hold all anticoagulation 5. COPD with chronic hypoxic respiratory failure on 2 L at home: The patient appears to be at her baseline at this time we'll begin to wean her steroids continue his Spiriva and Advair Flonase and DuoNeb's. 6. Anxiety/depression: Continue home Seroquel, trazodone, Prozac. 7. Chronic diastolic CHF: Echocardiogram completed in July of this year shows a normal EF with grade 1 diastolic dysfunction. Continue monitor her clinically daily while her diuretics on hold 8. GERD: As outlined above we'll switch her to by mouth PPI Also continue home Carafate. 9. History of bilateral mastectomy, with current pain and right axilla: An ultrasound is unrevealing, clinically there is no evidence for infection mass or abnormality other than fibrotic scar follow-up with outpatient provider 10. Hypertension: Currently holding home Norvasc as she was hypotensive upon admission. Could likely restart this in the near future 11. Hypokalemia and hypomagnesemia: Replacing. The patient did have an event on telemetry yesterday evening which was concerning for possible torsade we'll continue to monitor on telemetry for additional 24 hours her magnesium and potassium have been optimized 12. Metabolic encephalopathy: Possibly related to her GI bleed patient likely has some underlying dementia for which she has confusion at her baseline at home and the patient's daughter had been seeking placement. I suspect that this is in the setting of a slight dementia however to rule out any other etiologies I will check an RPR ammonia level MRI of the brain and B12 level. DISPOSITION: We'll continue to monitor on telemetry for 24 more hours after which the patient can likely be dispositioned home versus placement depending on her mental status. VS, I&O, 24H, Fishbone Vital Signs/I&O Vital Signs Date Time Temp Pulse Resp B/P (MAP) Pulse Ox O2 Delivery O2 Flow Rate FiO2 01/04/17 12:00 Nasal Cannula 2.0 01/04/17 08:00 98.7 69 18 156/68 (97) 93 I&O- Last 24 Hours up to 6 AM 01/04/17 06:00 Intake Total 1670 ml Output Total 1525 ml Balance 145 ml Laboratory Data 24H LABS Laboratory Tests 2 01/04/17 05:04: White Blood Count 11.3H, Red Blood Count 3.31L, Hemoglobin 10.3L, Hematocrit 31.3L, Mean Corpuscular Volume 94.5, Mean Corpuscular Hemoglobin 31.2, Mean Corpuscular Hemoglobin Concent 33.0, Red Cell Distribution Width 14.6H, Platelet Count 232, Neutrophils (%) (Auto) 90.2H, Lymphocytes (%) (Auto) 4.7L, Monocytes (%) (Auto) 3.6, Eosinophils (%) (Auto) 0.0, Basophils (%) (Auto) 0.1, Neutrophils # (Auto) 10.2H, Lymphocytes # (Auto) 0.5L, Monocytes # (Auto) 0.4, Eosinophils # (Auto) 0.0, Basophils # (Auto) 0.0, Large Unclassified Cells % 1.4 , Large Unclassified Cells # 0.2, Anion Gap 9, Glomerular Filtration Rate 29.7L , Blood Urea Nitrogen 24H, Creatinine 1.76H, Sodium Level 135L, Potassium Level 4.2#, Chloride Level 100, Carbon Dioxide Level 26, Calcium Level 8.9, Aspartate Amino Transf (AST/SGOT) 8L, Alanine Aminotransferase (ALT/SGPT) 16, Alkaline Phosphatase 47, Total Bilirubin 0.4, Total Protein 6.0L, Albumin 3.1L, Magnesium Level 2.3, Albumin/Globulin Ratio 1.07 CBC/BMP Laboratory Tests 01/03/17 16:44 01/04/17 01:02 01/04/17 05:04 Red Blood Count 3.31 L, Mean Corpuscular Volume 94.5, Mean Corpuscular Hemoglobin 31.2, Mean Corpuscular Hemoglobin Concent 33.0, Red Cell Distribution Width 14.6 H, Neutrophils (%) (Auto) 90.2 H, Lymphocytes (%) (Auto ) 4.7 L, Monocytes (%) (Auto) 3.6, Eosinophils (%) (Auto) 0.0, Basophils (%) ( Auto) 0.1, Neutrophils # (Auto) 10.2 H, Lymphocytes # (Auto) 0.5 L, Monocytes # (Auto) 0.4, Eosinophils # (Auto) 0.0, Basophils # (Auto) 0.0, Calcium Level 8.9 , Aspartate Amino Transf (AST/SGOT) 8 L, Alanine Aminotransferase (ALT/SGPT) 16 , Alkaline Phosphatase 47, Total Bilirubin 0.4, Total Protein 6.0 L, Albumin 3.1 L 01/04/17 09:12 Microbiology Microbiology 01/02/17 Blood Culture - Preliminary, Resulted No growth after 24 hours . All specim... 01/02/17 Blood Culture - Preliminary, Resulted No growth after 24 hours . All specim... 01/02/17 Urine Culture - Final, Complete EBEN DEVRIES MD Jan 04, 2017 13:06
[2017-01-04] MEDS: predniSONE 20 MG TAB PO SCH (13:08)
[2017-01-04 14:35] LABS: VITAMIN B12 LEVEL 820 PG/ML (247-911)
[2017-01-04 16:00] VITALS: BP 142/86
--- NOTE | 2017-01-04 17:04 | REP ---
REASON FOR EXAM: Confusion. COMPARISON: 09/22/2005 The ventricles and sulci are prominent but consistent with the patient's age of 76 years and changed little from the prior exam. There are no extra axial fluid collections. There is no shift in the midline structures. T2 and flare signal hyperintensities are seen throughout the deep cerebral white matter. Of the deluna radiata and centrum semiovale bilaterally and particularly in the periventricular regions increased somewhat from the prior exam. There is a tiny 3 mm sized focus of increased signal seen on the DWI images residing in the right posterior parietal occipital region. This is seen on one image only and has no definite ADC mapped low signal correlate. This was not present on the prior exam. The orbital and petrous structures, cerebellopontine angles and posterior fossa are within normal limits. The sella turcica, cavernous, paracavernous structures are within normal limits. Slight T2 hypersignal is seen in the mastoid air cells bilaterally. IMPRESSION: 1. Possible acute lacunar infarct in the subcortical white matter in the right posterior parietal lobe near the parietal occipital region as described above. 2. Deep white matter ischemic disease is suspected as described above. 3. Chronic mastoid changes are suspected as described above. 4. Other findings as described above. Signed by Dean Villanueva DO 01/05/2017 02:21 P
[2017-01-04 20:00] VITALS: BP 139/66
[2017-01-04] MEDS: SIMVASTATIN 10 MG TAB PO SCH (21:41)
[2017-01-05] VITALS: BP 161/66
[2017-01-05] MEDS: IPRATROPIUM 0.5MG/ALBUTEROL 2.5MG INH SOL UD 3ML (DUONEB)(J7620) NEB SCH ×4 (01:48→20:00)
[2017-01-05 04:00] VITALS: BP 142/84
[2017-01-05 05:06] LABS: BASO % 0.1 % (0.0-1.0); EOS % 0.2 % (0.0-3.0); LARGE UNSTAINED CELL # 0.2 K/mm3 (0.0-0.4); LYMPH % 6.7 % (24.0-44.0); MEAN CORPUSCULAR HEMOGLOBIN 30.4 pg (27.0-33.0); MONO # 0.5 K/mm3 (0.0-0.8); MONO % 4.7 % (0.0-5.0); NEUTROPHILS % 86.3 % (36.0-66.0); PLATELET COUNT, AUTOMATED 239 k/mm3 (150-450); RED CELL DISTRIBUTION WIDTH 14.7 % (11.5-14.5); WHITE BLOOD COUNT 11.6 K/mm3 (4.0-10.0)
[2017-01-05 05:29] LABS: ALBUMIN/GLOBULIN RATIO 1.15 (1.00-1.93); BILIRUBIN,TOTAL 0.4 MG/DL (0.2-1.0); CALCIUM LEVEL 8.7 MG/DL (8.8-10.2); CREATININE FOR GFR 1.57 MG/DL (0.55-1.02); GLOMERULAR FILTRATION RATE 33.9 (>39); MAGNESIUM LEVEL 2.4 MG/DL (1.8-2.4); POTASSIUM SERUM 4.4 MEQ/L (3.5-5.1); TOTAL PROTEIN 5.6 GM/DL (6.4-8.2)
[2017-01-05] MEDS: ADVAIR HFA 115/21MCG INHALER INH SCH ×2 (07:40→19:58)
[2017-01-05] MEDS: TIOTROPIUM INHALER/CAPSULE (SPIRIVA) INH SCH (07:40)
[2017-01-05 08:00] VITALS: BP 144/62
[2017-01-05] MEDS: LACTOBACILLUS ACIDOPHILUS CAP (BACID) PO SCH ×3 (08:00→18:05)
[2017-01-05] MEDS: FLUoxetine 20 MG CAP PO SCH (08:00)
[2017-01-05] MEDS: oxyBUTYnin *DITROPAN XL* 5 MG TABCR PO SCH (08:00)
[2017-01-05] MEDS: GABAPENTIN 300 MG CAP PO SCH ×3 (08:01→20:04)
[2017-01-05] MEDS: MULTIVITAMINS/MINERALS THERAP 1 TAB PO SCH (08:01)
[2017-01-05] MEDS: predniSONE 20 MG TAB PO SCH (08:01)
[2017-01-05] MEDS: FERROUS SULFATE 325MG TAB PO SCH (08:01)
[2017-01-05] MEDS: FLUTICASONE PROP 0.05% NASAL SPRAY 16 GM (FLONASE) SCH ×2 (08:01→20:04)
[2017-01-05] MEDS: SUCRALFATE 1 GM TAB PO SCH ×3 (08:01→18:05)
[2017-01-05] MEDS: MAGNESIUM OXIDE 400 MG TAB (MAG-OX) PO SCH (08:01)
[2017-01-05] MEDS: PANTOPRAZOLE 40MG TAB (PROTONIX) PO SCH (08:01)
--- NOTE | 2017-01-05 11:09 | IPNPDOC ---
Date Seen The patient was seen on 01/05/17. Progress Note OBJECTIVE: Patient is oriented to person, today she knows the year and what city she is in but not the specific place or situation. She denies any pain or shortness of breath, no further bloody bowel movements. OBJECTIVE PHYSICAL EXAMINATION: VITAL SIGNS: Please see below. GENERAL: Obese elderly female sleeping in bed accompanied by her daughter the patient does not appear to be in any acute distress whatsoever HEENT: Pupils equally round reactive to light she has moist membranes do not appreciate any elevation of CVP CARDIOVASCULAR: S1-S2 irregularly irregular not tachycardic. RESPIRATORY: Diminished breath sounds at the bases but otherwise fairly good air movement I do not appreciate any wheeze. ABDOMINAL: Bowel sounds present abdomen soft and nontender it is obese EXTREMITIES: No clubbing cyanosis or appreciable edema LABORATORY DATA: Please see below. MICROBIOLOGY: Please see below. IMAGING: Breast ultrasound:No cystic or solid nodule at the site of the reported area of pain and palpable abnormality. Clinical correlation and followup is recommended. MRI 01/04/2017: 1. Possible acute lacunar infarct in the subcortical white matter in the right posterior parietal lobe near the parietal occipital region as described above. 2. Deep white matter ischemic disease is suspected as described above. 3. Chronic mastoid changes are suspected as described above. 4. Other findings as described above. DVT prophylaxis ordered?: Sequentials and teds no pharmacological agents in the setting of recent GI bleeding ASSESSMENT AND PLAN: This is a 76-year-old female with GI bleeding and confusion. 1. GI bleed: Appears resolved, likely secondary to anticoagulation. Hemoglobin stabilized following 2 units of PRBCs. She had an EGD in August of 2016 which was unremarkable, and a Cscope in May 2015 which was significant only for internal hemorrhoids and sigmoid diverticula. At this time I will transition her back to her home PPI and advance her diet as tolerated. I would keep her off anticoagulation at this time she was on it for a history of PE follow-up with her outpatient providers. 2. Anemia secondary to acute blood loss: As mentioned above stable we'll continue to monitor daily. The patient on iron supplementation 3. Acute on chronic kidney disease: Resolved The patient's baseline creatinine appears to be in the mid ones. Her creatinine upon arrival was 2.12, her diuretic is on hold she is tolerating by mouth she is status post transfusion simply continue to monitor for now 4. History of PE: The patient currently is unable to tolerate anticoagulation fortunately she does have an IVC filter in place. She was previously on Coumadin for now we will hold all anticoagulation 5. COPD with chronic hypoxic respiratory failure on 2 L at home: The patient appears to be at her baseline at this time we'll begin to wean her steroids continue his Spiriva and Advair Flonase and DuoNeb's. 6. Anxiety/depression: Continue home Seroquel, trazodone, Prozac. 7. Chronic diastolic CHF: Echocardiogram completed in July of this year shows a normal EF with grade 1 diastolic dysfunction. Continue monitor her clinically daily while her diuretics on hold 8. GERD: As outlined above we'll switch her to by mouth PPI Also continue home Carafate. 9. History of bilateral mastectomy, with current pain and right axilla: An ultrasound is unrevealing, clinically there is no evidence for infection mass or abnormality other than fibrotic scar follow-up with outpatient provider 10. Hypertension: Currently holding home Norvasc as she was hypotensive upon admission. Could likely restart this in the near future 11. Hypokalemia and hypomagnesemia: Replacing. The patient did have an event on telemetry yesterday evening which was concerning for possible torsade we'll continue to monitor on telemetry for additional 24 hours her magnesium and potassium have been optimized 12. Metabolic encephalopathy: Possibly related to her GI bleed patient likely has some underlying dementia for which she has confusion at her baseline at home. The patient did have imaging abnormality on a single image of her MRI concerning for acute lacunar infarct however this seems less likely given the presentation and the reason for the MRI being ordered her ischemic disease and does not appear to be coinciding with vascular dementia and feel that this finding is possibly artifact versus incidental finding and not playing a role in her current presentation. She is somewhat improved today I suspect she has metabolic encephalopathy secondary to acute on chronic dementia in the setting of an acute medical combined with in hospital . 13. Neuropathy: Continue with Neurontin 14. Dyslipidemia: Continue with statin 15. Telemetry abnormality: There is except expressed concerns that 01/03/2017 the patient may have had an episode of torsades at that time her magnesium potassium were low is unclear if it actually was torsades it did spontaneously resolved without any symptoms she has had an echo completed recently that did not reveal any depressed ejection fraction her magnesium and potassium have been optimized she has not any further episodes at this time do not feel she needs any further telemetry. DISPOSITION: I did speak with the patient's daughter today she declines any potential placement offers she is able to provide 24 7 care at home for her mother will continue to have her work with physical therapy I suspect she is nearing potential discharge back home and would likely benefit from home services. VS, I&O, 24H, Fishbone Vital Signs/I&O Vital Signs Date Time Temp Pulse Resp B/P (MAP) Pulse Ox O2 Delivery O2 Flow Rate FiO2 01/05/17 08:00 98.4 73 18 144/62 (89) 90 Nasal Cannula 2.0 I&O- Last 24 Hours up to 6 AM 01/05/17 05:59 Intake Total 684 ml Output Total 1200 ml Balance -516 ml Laboratory Data 24H LABS Laboratory Tests 2 01/04/17 12:48: Ammonia 11, Vitamin B12 Level 820, Syphilis Serology NONREACTIVE 01/05/17 04:46: White Blood Count 11.6H, Red Blood Count 3.28L, Hemoglobin 10.0L, Hematocrit 31.1L, Mean Corpuscular Volume 95.0, Mean Corpuscular Hemoglobin 30.4, Mean Corpuscular Hemoglobin Concent 32.0, Red Cell Distribution Width 14.7H, Platelet Count 239, Neutrophils (%) (Auto) 86.3H, Lymphocytes (%) (Auto) 6.7L, Monocytes (%) (Auto) 4.7, Eosinophils (%) (Auto) 0.2, Basophils (%) (Auto) 0.1, Neutrophils # (Auto) 10.0H, Lymphocytes # (Auto) 1.0L, Monocytes # (Auto) 0.5, Eosinophils # (Auto) 0.0, Basophils # (Auto) 0.0, Large Unclassified Cells % 2.0 , Large Unclassified Cells # 0.2, Anion Gap 5L, Glomerular Filtration Rate 33.9L , Blood Urea Nitrogen 29H, Creatinine 1.57H, Sodium Level 136, Potassium Level 4.4, Chloride Level 102, Carbon Dioxide Level 29, Calcium Level 8.7L, Aspartate Amino Transf (AST/SGOT) 12L, Alanine Aminotransferase (ALT/SGPT) 17, Alkaline Phosphatase 44L, Total Bilirubin 0.4, Total Protein 5.6L, Albumin 3.0L, Magnesium Level 2.4, Albumin/Globulin Ratio 1.15 CBC/BMP Laboratory Tests 01/05/17 04:46 Red Blood Count 3.28 L, Mean Corpuscular Volume 95.0, Mean Corpuscular Hemoglobin 30.4, Mean Corpuscular Hemoglobin Concent 32.0, Red Cell Distribution Width 14.7 H, Neutrophils (%) (Auto) 86.3 H, Lymphocytes (%) (Auto ) 6.7 L, Monocytes (%) (Auto) 4.7, Eosinophils (%) (Auto) 0.2, Basophils (%) ( Auto) 0.1, Neutrophils # (Auto) 10.0 H, Lymphocytes # (Auto) 1.0 L, Monocytes # (Auto) 0.5, Eosinophils # (Auto) 0.0, Basophils # (Auto) 0.0, Calcium Level 8.7 L, Aspartate Amino Transf (AST/SGOT) 12 L, Alanine Aminotransferase (ALT/SGPT) 17, Alkaline Phosphatase 44 L, Total Bilirubin 0.4, Total Protein 5.6 L, Albumin 3.0 L Microbiology Microbiology 01/02/17 Blood Culture - Preliminary, Resulted No Growth after 48 hours. All Specime... 01/02/17 Blood Culture - Preliminary, Resulted No Growth after 48 hours. All Specime... 01/02/17 Urine Culture - Final, Complete EBEN DEVRIES MD Jan 05, 2017 11:09
[2017-01-05 12:00] VITALS: BP 155/64
[2017-01-05 14:20] VITALS: BP 143/64
[2017-01-05] MEDS: SIMVASTATIN 10 MG TAB PO SCH (20:04)
[2017-01-05 22:00] VITALS: BP 151/68
[2017-01-06] MEDS: IPRATROPIUM 0.5MG/ALBUTEROL 2.5MG INH SOL UD 3ML (DUONEB)(J7620) NEB SCH ×2 (02:00→07:33)
[2017-01-06 06:00] VITALS: BP 163/76
[2017-01-06 06:07] LABS: EOS # 0.1 K/mm3 (0.0-0.50); EOS % 0.7 % (0.0-3.0); LARGE UNSTAINED CELL # 0.2 K/mm3 (0.0-0.4); LARGE UNSTAINED CELL % 2.2 % (0.0-4.0); LYMPH # 1.3 K/mm3 (1.5-4.5); LYMPH % 11.2 % (24.0-44.0); MEAN CORPUSCULAR HEMOGLOBIN 31.1 pg (27.0-33.0); MEAN CORPUSCULAR HGB CONC 32.8 g/dl (32.0-36.5); MEAN CORPUSCULAR VOLUME 94.7 fl (80.0-96.0); MONO # 0.8 K/mm3 (0.0-0.8); MONO % 7.5 % (0.0-5.0); NEUTROPHILS # 7.9 K/mm3 (1.8-7.7); NEUTROPHILS % 78.5 % (36.0-66.0); PLATELET COUNT, AUTOMATED 226 k/mm3 (150-450); RED CELL DISTRIBUTION WIDTH 14.3 % (11.5-14.5)
[2017-01-06 06:31] LABS: ALBUMIN 2.8 GM/DL (3.2-5.2); ALBUMIN/GLOBULIN RATIO 1.08 (1.00-1.93); BILIRUBIN,TOTAL 0.3 MG/DL (0.2-1.0); CALCIUM LEVEL 8.6 MG/DL (8.8-10.2); CREATININE FOR GFR 1.36 MG/DL (0.55-1.02); MAGNESIUM LEVEL 2.2 MG/DL (1.8-2.4); POTASSIUM SERUM 4.1 MEQ/L (3.5-5.1); TOTAL PROTEIN 5.4 GM/DL (6.4-8.2)
[2017-01-06] MEDS: TIOTROPIUM INHALER/CAPSULE (SPIRIVA) INH SCH (07:32)
[2017-01-06] MEDS: ADVAIR HFA 115/21MCG INHALER INH SCH (07:33)
[2017-01-06] MEDS: GABAPENTIN 300 MG CAP PO SCH (07:56)
[2017-01-06] MEDS: SUCRALFATE 1 GM TAB PO SCH ×2 (07:56→12:48)
[2017-01-06] MEDS: LACTOBACILLUS ACIDOPHILUS CAP (BACID) PO SCH ×2 (07:56→12:48)
[2017-01-06] MEDS: predniSONE 20 MG TAB PO SCH (07:57)
[2017-01-06] MEDS: FLUoxetine 20 MG CAP PO SCH (07:57)
[2017-01-06] MEDS: FERROUS SULFATE 325MG TAB PO SCH (07:57)
[2017-01-06] MEDS: PANTOPRAZOLE 40MG TAB (PROTONIX) PO SCH (07:57)
[2017-01-06] MEDS: MULTIVITAMINS/MINERALS THERAP 1 TAB PO SCH (07:57)
[2017-01-06] MEDS: MAGNESIUM OXIDE 400 MG TAB (MAG-OX) PO SCH (07:57)
[2017-01-06] MEDS: oxyBUTYnin *DITROPAN XL* 5 MG TABCR PO SCH (07:58)
[2017-01-06] MEDS: FLUTICASONE PROP 0.05% NASAL SPRAY 16 GM (FLONASE) SCH (07:58)
--- NOTE | 2017-01-07 17:32 | DSES ---
DATE OF ADMISSION: 01/02/2017 DATE OF DISCHARGE: 01/06/2017 DISCHARGE DIAGNOSIS: Gastrointestinal (GI) bleed. SECONDARY DIAGNOSES: 1. Acute blood loss anemia and iron-deficiency anemia. 2. Acute on chronic kidney disease. 3. History of pulmonary embolism. 4. Chronic obstructive pulmonary disease (COPD) with chronic hypoxic respiratory failure. 5. Anxiety/depression. 6. Chronic diastolic congestive heart failure. 7. Gastroesophageal reflux disease. 8. Hypertension. 9. Hyperlipidemia. 10. Hypomagnesemia. 11. Metabolic encephalopathy. 12. Neuropathy. 13. Dyslipidemia. HOSPITAL COURSE: The patient is a 76-year-old female who was admitted with bright red blood per rectum. She had previously been on Coumadin for history of pulmonary embolism (PE), but had supratherapeutic international normalized ratio (INR)s and was recently transitioned to Eliquis. She was found on arrival to have a hemoglobin of 7.9. She was transfused two units. Her Eliquis was held. Hemoglobin did increase to greater than 10 where she remained stable throughout the rest of her stay. She did have some metabolic encephalopathy and confusion. She reportedly does have days where she is confused at home, but this was much worse while in hospital, likely secondary to acute on chronic metabolic encephalopathy secondary to acute medical illness. It did improve throughout her stay to the point where she was back at her baseline today on 01/06/2017. SUBJECTIVE: Today the patient reports she feels well. She is awake, alert, and oriented times three. She is no pain, has no complaints. OBJECTIVE: VITAL SIGNS: Temperature 97.6, pulse 62, respiratory rate 16, blood pressure 163/76, oxygen saturation 91% on two liters. GENERAL: She is an obese, elderly female. She does not appear to be in any acute distress. She is lying in bed at a 30-degree angle eating breakfast, accompanied by her daughter. HEENT: Cranial nerves II through XII are grossly intact. She has moist mucous membranes. No elevation of central venous pressure (CVP). CARDIOVASCULAR: S1, S2 regular. RESPIRATORY: Clear. ABDOMEN: Obese. Bowel sounds are present. The abdomen is soft. It is quite benign. EXTREMITIES: No clubbing, cyanosis or edema. LABORATORY DATA: WBC 10.0, hemoglobin 9.7, platelet count 226. Chemistry panel: Sodium 138, potassium 4.1, chloride 103, bicarbonate 31, BUN 23, creatinine 1.3, did improve from 2.1 at the time of admission. She did have a B12 level within normal limits. TSH was just slightly elevated at 3.7. She had multiple sets of cardiac enzymes which were negative, an ammonia level which was unremarkable, a nonreactive RPR, a UA which was unremarkable. MICROBIOLOGY: Blood cultures were negative. Urine culture was negative. IMAGING: She did have a CT scan of her head which revealed no acute hemorrhage or infarct. Mild age-related atrophy and chronic small-vessel ischemic disease. She had a CT scan of the abdomen and pelvis, that revealed no obstructive or inflammatory bowel changes. No evidence of hydronephrosis or nephrolithiasis. Moderate diffuse atherosclerotic disease of the abdominal aorta. No evidence of aneurysm. Severe spondylosis of the lumbar spine. No interval change. She did have a breast ultrasound as she did have some pain over her old mastectomy scar. No cystic or solid nodules found at the site. No area of pain or palpable abnormality was noted on physical exam. She also did have an MRI of the brain while she was confused, and although her confusion resolved, her MRI did reveal possible acute infarct in the subcortical white matter in the right posterior parietal lobe near the parietal occipital region. It was in a single frame. Given that she had delirium which resolved in the setting of what is likely dementia, I suspect that this is more likely artifact than relevant acute finding. ASSESSMENT AND PLAN: This is a 76-year-old female with gastrointestinal (GI) bleeding and metabolic encephalopathy. 1. GI bleed. It did resolve with cessation of Eliquis. Her hemoglobin has remained stable following two units of packed red blood cells (PRBCs). She had an esophagogastroduodenoscopy (EGD) in August that was unremarkable, and a colonoscopy in May of 2015, which showed internal hemorrhoids and sigmoid diverticula. She is tolerating a regular diet. I would keep her off anticoagulation at this time. She was on it for a history of pulmonary embolism (PE). She does have an inferior vena cava (IVC) filter in place. She can followup with her primary care provider regarding this. 2. Acute blood loss anemia and iron-deficiency anemia in the setting of GI bleed. The patient is on iron supplementation. 3. Acute kidney injury, did resolve. Likely prerenal azotemia. It did improve with transfusion of blood and resumption of diet. 4. History of pulmonary embolism. She is unable to tolerate anticoagulation. Fortunately, she already has an IVC in place. 5. Chronic obstructive pulmonary disease (COPD) with chronic hypoxic respiratory failure requiring two liters of home oxygen. The patient remained at her baseline throughout her stay. She was briefly on steroids while in the hospital, although there was little suspicion for any acute decompensation. She was continued on Spiriva, Advair, Flonase and DuoNeb. 6. Anxiety/depression. She is to continue on her home Seroquel, trazodone and Prozac. 7. Chronic diastolic congestive heart failure. She did have an echocardiogram in July which revealed a normal ejection fraction (EF) but with grade 1 diastolic dysfunction. She appeared to be clinically euvolemic during her stay. Her diuretics were on hold secondary to acute kidney injury. 8. Gastroesophageal reflux disease. She was continued on proton pump inhibitor (PPI) and Carafate. 9. History of bilateral mastectomy. She has some pain at the previous surgical site without any acute deformity. No erythema, tenderness or ultrasound findings. 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 10. Hypertension. Her Norvasc was on hold during her admission. It can be resumed upon discharge. 11. Hypokalemia, hypomagnesemia. Repleted. 12. Metabolic encephalopathy. The patient did undergo a delirium workup while she was confused to rule out other etiologies, which all returned fairly negative. Her confusion has resolved. She appears to be back at her baseline. I suspect she has underlying dementia with good days and bad days, and then acute on chronic cognitive impairment in the setting of acute medical illness. 13. Peripheral neuropathy. Continue with Neurontin. 14. Dyslipidemia. Continue with statin. DISPOSITION: The patient is being discharged home with services to the care of her daughter who is able to provide 24-7 care at home. The patient, despite repeat hospitalizations, is not interested in any placement offers. The patient is to followup with her primary care provider (PCP) within seven days. Her activity and diet are as prior to admission. She is to return to the ER if her symptoms worsen. MEDICATIONS AT TIME OF DISCHARGE: - Marion 7.5/325 one tablet four times a day as needed for pain - Ventolin HFA two puffs every four hours as needed for shortness of breath - DuoNeb in nebulizer solution every four hours as needed for shortness of breath - amlodipine 2.5 mg daily - aspirin 81 mg daily - calcium and vitamin D 500/200 mg/units one tablet twice a day - ferrous sulfate 325 mg daily - fluoxetine 60 mg daily - fluticasone two sprays nasally twice a day per nostril - furosemide 40 mg daily - gabapentin 300 mg twice a day, 600 mg at bedtime - hydrocortisone 2.5% topically rectally twice a day as needed for hemorrhoids - magnesium oxide 400 mg taken by mouth daily at noon - multivitamin one tablet daily - nitroglycerin 0.4 mg sublingual every five minutes times three doses for chest pain as needed - oxybutynin 15 mg daily - pantoprazole 40 mg daily - prednisone 10 mg daily - quetiapine 50 mg at bedtime - Advair Diskus 250/50 one puff inhaled twice a day - simvastatin 10 mg at bedtime - Carafate 1 gram by mouth before meals - Spiriva 18 mcg inhaled daily - trazodone 100 mg at bedtime as needed for sleep Greater than 45 minutes were spent organizing disposition.
== END 2017-01-06 13:12 | disposition home health service (06) | DRG 813 ==
LOC: M ED 15:27 → M ED INP 22:22 → M ICU 01-03 01:09 → M MSPAV 01-05 14:19
PROVIDERS: ADMIT Hospitalist; ATTEND Internal Medicine
PROC: 30233N1 Transfusion of Nonautologous Red Blood Cells into Peripheral Vein, Percutaneous Approach (ICD-10-PCS; principal; 2017-01-02)
DX: D68.32 Hemorrhagic disorder due to extrinsic circulating anticoagulants (principal); G93.41 Metabolic encephalopathy; K62.5 Hemorrhage of anus and rectum; N17.9 Acute kidney failure, unspecified; D62 Acute posthemorrhagic anemia; I50.32 Chronic diastolic (congestive) heart failure; J96.11 Chronic respiratory failure with hypoxia; I13.0 Hypertensive heart and chronic kidney disease with heart failure and stage 1 through stage 4 chronic kidney disease, or unspecified chronic kidney disease; F03.91 Unspecified dementia, unspecified severity, with behavioral disturbance; J44.9 Chronic obstructive pulmonary disease, unspecified; E78.5 Hyperlipidemia, unspecified; K21.9 Gastro-esophageal reflux disease without esophagitis; F41.9 Anxiety disorder, unspecified; F32.9 Major depressive disorder, single episode, unspecified; N18.9 Chronic kidney disease, unspecified; Z86.711 Personal history of pulmonary embolism; E83.42 Hypomagnesemia; G60.9 Hereditary and idiopathic neuropathy, unspecified; K64.8 Other hemorrhoids; E87.6 Hypokalemia; Z79.82 Long term (current) use of aspirin; Z79.899 Other long term (current) drug therapy; Z88.0 Allergy status to penicillin; Z88.2 Allergy status to sulfonamides; Z88.5 Allergy status to narcotic agent; Z88.8 Allergy status to other drugs, medicaments and biological substances; Z87.891 Personal history of nicotine dependence; Z80.3 Family history of malignant neoplasm of breast; Z80.1 Family history of malignant neoplasm of trachea, bronchus and lung; Z83.3 Family history of diabetes mellitus; G47.00 Insomnia, unspecified

== ENCOUNTER 2017-01-24 11:37 | Emergency (ER) | payer MEDICARE, MEDICAID ==
[~2017-01-24] VITALS: Ht 157.5 cm; Wt 80.9 kg
[~2017-01-24 11:37] MED LIST changes: -PANTOPRAZOLE 40MG TAB (PROTONIX) PO SCH; +PROC2.5C PR
[2017-01-24] MEDS ORDERED: NS 1,000 ML IV SCH (12:42)
[2017-01-24 13:44] LABS: BASO % 0.4 % (0.0-1.0); EOS % 0.5 % (0.0-3.0); LARGE UNSTAINED CELL # 0.1 K/mm3 (0.0-0.4); LARGE UNSTAINED CELL % 0.8 % (0.0-4.0); LYMPH # 1.1 K/mm3 (1.5-4.5); LYMPH % 9.8 % (24.0-44.0); MEAN CORPUSCULAR HEMOGLOBIN 29.8 pg (27.0-33.0); MEAN CORPUSCULAR HGB CONC 31.6 g/dl (32.0-36.5); MEAN CORPUSCULAR VOLUME 94.3 fl (80.0-96.0); MONO # 0.4 K/mm3 (0.0-0.8); MONO % 3.4 % (0.0-5.0); NEUTROPHILS # 8.6 K/mm3 (1.8-7.7); NEUTROPHILS % 85.2 % (36.0-66.0); PLATELET COUNT, AUTOMATED 291 k/mm3 (150-450); RED CELL DISTRIBUTION WIDTH 13.4 % (11.5-14.5); WHITE BLOOD COUNT 10.1 K/mm3 (4.0-10.0)
[2017-01-24 13:54] LABS: ALBUMIN 3.4 GM/DL (3.2-5.2); ALBUMIN/GLOBULIN RATIO 1.06 (1.00-1.93); BILIRUBIN,DIRECT 0.1 MG/DL (0.0-0.2); BILIRUBIN,TOTAL 0.4 MG/DL (0.2-1.0); CALCIUM LEVEL 11.9 MG/DL (8.8-10.2); CREATININE FOR GFR 1.56 MG/DL (0.55-1.02); GLOMERULAR FILTRATION RATE 34.2 (>39); POTASSIUM SERUM 4.3 MEQ/L (3.5-5.1); TOTAL PROTEIN 6.6 GM/DL (6.4-8.2)
[2017-01-24] MEDS ORDERED: GASTROGRAFIN SOLUTION 30ML (Q9963) As Ordered ONE (14:57)
[2017-01-24] MEDS ORDERED: GASTROGRAFIN SOLUTION 30ML PO ONE (15:00)
[2017-01-24 15:10] VITALS: BP 188/74
[2017-01-24] MEDS ORDERED: GASTROGRAFIN SOLUTION 30ML (Q9963) PO ONE (15:30)
--- NOTE | 2017-01-24 17:02 | REP ---
CT abdomen and pelvis without IV but with oral contrast: History: Diverticulitis. Comparison CT study is from 12/03/2016. Findings: Preliminary digital [employer] scout radiograph shows an unremarkable bowel gas pattern. A mild levoconvex curve is seen in the lumbar spine. The lung bases show minimal fibrosis but are otherwise clear. The liver and spleen are normal in size homogeneous in texture. No adrenal lesion is seen. Pancreas is unremarkable. No gallbladder abnormality. The kidneys are morphologically intact. There is an inferior vena cava filter noted in good position. Vascular calcification is seen in a normal caliber aorta and in the iliac vessels. There is mild diverticulosis in the sigmoid colon. There is no CT evidence of diverticulitis. Small and large intestinal bowel loops are unremarkable in the abdomen and pelvis. No free fluid is seen. No uterine or ovarian abnormality is observed. Urinary bladder is intact. Bone window settings show no bony destructive lesion. Degenerative spondylosis changes are again noted in the lumbar spine. No abdominal wall defect is seen. Impression: Mild left colonic diverticulosis. No CT evidence of diverticulitis. Vascular calcification. Otherwise negative. Signed by Roberto Velazquez MD 01/25/2017 09:11 A
[2017-01-24 18:57] LABS: IONIZED CALCIUM 5.1 MG/DL (4.5-5.3)
[2017-01-24 19:11] LABS: CALCIUM LEVEL 10.7 MG/DL (8.8-10.2)
[2017-01-24] MEDS ORDERED: NS 500 ML IV ONE (20:30)
== END 2017-01-24 22:18 | disposition home or self-care (01) ==
LOC: M ED 11:37
DX: E83.52 Hypercalcemia (principal); R19.7 Diarrhea, unspecified; I50.9 Heart failure, unspecified; Z86.718 Personal history of other venous thrombosis and embolism; I10 Essential (primary) hypertension; J44.9 Chronic obstructive pulmonary disease, unspecified; K21.9 Gastro-esophageal reflux disease without esophagitis; F41.9 Anxiety disorder, unspecified; F32.9 Major depressive disorder, single episode, unspecified; Z87.19 Personal history of other diseases of the digestive system; Z87.891 Personal history of nicotine dependence; Z85.3 Personal history of malignant neoplasm of breast; Z90.13 Acquired absence of bilateral breasts and nipples; K57.30 Diverticulosis of large intestine without perforation or abscess without bleeding; Z79.82 Long term (current) use of aspirin; Z79.899 Other long term (current) drug therapy; Z88.0 Allergy status to penicillin; Z88.5 Allergy status to narcotic agent; Z88.8 Allergy status to other drugs, medicaments and biological substances; Z88.2 Allergy status to sulfonamides

== ENCOUNTER 2017-01-26 18:18 | Emergency (ER) | payer MEDICARE, MEDICAID ==
[~2017-01-26] VITALS: Ht 157.5 cm; Wt 85.0 kg
[2017-01-26] MEDS ORDERED: TRIA1CR TOP (18:48)
[2017-01-26] MEDS ORDERED: PROAAER10 (18:48)
[2017-01-26] MEDS ORDERED: ADVAIR (18:48)
[2017-01-26] MEDS ORDERED: NYST50SS SS (18:48)
[2017-01-26 19:43] LABS: BASO % 0.3 % (0.0-1.0); EOS % 0.2 % (0.0-3.0); LARGE UNSTAINED CELL # 0.2 K/mm3 (0.0-0.4); LARGE UNSTAINED CELL % 2.1 % (0.0-4.0); LYMPH # 1.4 K/mm3 (1.5-4.5); LYMPH % 12.8 % (24.0-44.0); MEAN CORPUSCULAR HGB CONC 32.4 g/dl (32.0-36.5); MEAN CORPUSCULAR VOLUME 92.6 fl (80.0-96.0); MONO # 0.5 K/mm3 (0.0-0.8); MONO % 4.8 % (0.0-5.0); NEUTROPHILS # 7.7 K/mm3 (1.8-7.7); NEUTROPHILS % 79.7 % (36.0-66.0); PLATELET COUNT, AUTOMATED 247 k/mm3 (150-450); RED CELL DISTRIBUTION WIDTH 13.5 % (11.5-14.5); WHITE BLOOD COUNT 9.7 K/mm3 (4.0-10.0)
--- NOTE | 2017-01-26 19:47 | REP ---
AP PELVIS WITH LEFT HIP: 01/26/2017: Comparison: CT abdomen pelvis 01/24/2017. Clinical history: Trauma. Findings: The pelvic ring is intact. Symphysis pubis, pubic rami, acetabuli, iliac wings, SI joints and sacrum are grossly normal. There is levorotatory scoliosis of the lumbar spine centered at L2-3. The vena cava filter is seen with its proximal tip at the inferior end of the L2 vertebral body. There are vascular calcifications of the aorta. Iliac vessels show calcification. The bilateral hips are without visible fracture. Left hip: There is a bone island or enchondroma at the intertrochanteric region of the left hip as on the CT a few days ago. Hip joint space without narrowing. There is no hip joint fracture or impaction of the femoral neck, pubic rami, acetabulum femoral head and trochanteric region were without fracture. Subtrochanteric femur intact. Impression: 1. Degenerative changes of the lumbar spine and hips without visible or displaced fracture. Signed by Tad Tucker MD 01/27/2017 08:56 A
[2017-01-26 20:15] LABS: ALBUMIN/GLOBULIN RATIO 1.15 (1.00-1.93); BILIRUBIN,DIRECT 0.1 MG/DL (0.0-0.2); BILIRUBIN,TOTAL 0.4 MG/DL (0.2-1.0); CALCIUM LEVEL 10.8 MG/DL (8.8-10.2); CREATININE FOR GFR 1.67 MG/DL (0.55-1.02); GLOMERULAR FILTRATION RATE 31.6 (>39); POTASSIUM SERUM 4.6 MEQ/L (3.5-5.1); TOTAL PROTEIN 5.6 GM/DL (6.4-8.2)
[2017-01-26] MEDS ORDERED: MORPHINE 2 MG/ML 1ML SYRINGE IV ONE (20:15)
[2017-01-26] MEDS ORDERED: NORCO, ANEXSIA 5/325MG TABLET (HYDROcodone/ACETAMINOPHEN) PO ONE (22:00)
[2017-01-26 22:26] VITALS: BP 140/67
--- NOTE | 2017-01-27 13:16 | REP ---
AP SUPINE CHEST: 01/26/2017. Comparison: 01/02/2017, 12/24/2016. Clinical history: Altered mental status. Findings: The lung crump are overpenetrated and without definite consolidation. There is no definite layering effusion. The CP angles are sharply defined. Heart size not grossly enlarged. Aorta is calcified, tortuous and without aneurysm. Airway is intact. There is a left total shoulder arthroplasty and bilateral axillary surgical clips are noted. Impression: 1. Cardiomegaly without david edema or gross layering effusion. No definite infiltrates. Lung crump limited by overpenetration. 2. Calcified tortuous aorta, unchanged. 3. Axillary surgical clips and a left total shoulder arthroplasty. Signed by Tad Tucker MD 01/27/2017 08:57 A
--- NOTE | 2017-01-27 13:16 | REP ---
CT LEFT HIP WITHOUT CONTRAST: 01/26/2017. Clinical history: Left hip pain. Evaluate for fracture. Technique: Thin section axial images with coronal and sagittal reconstructions and bone window settings provided. Findings: That portion of iliac wing included was unremarkable. The acetabulum and its anterior and posterior columns show no fracture. Femoral head is also intact. There is no flattening of the femoral head or impaction fracture of the femoral neck. Along the superior margin of the junction of the superior pubic ramus and acetabulum, there is a small linear bone shelf which has the same CT appearance as on the coronal reconstructions in December. This is a normal finding and not a fracture. The superior pubic ramus, pubic symphysis, inferior pubic rami were all intact. Trochanters and subtrochanteric femur are intact as well. I see no definite acute bony finding. There are bone islands with sclerotic foci in the intertrochanteric region, inferior pubic ramus and vascular calcifications are noted. There is no acute bony finding. A small joint effusion might be present. Impression: 1. There is no CT evidence for displaced fracture or visible linear fracture line. No impaction. The hip, acetabulum, pubic rami, symphysis pubis grossly intact except for minor degenerative changes and some bone islands. A small left hip joint effusion is suspected. No avulsions. Signed by Tad Tucker MD 01/27/2017 09:05 A
--- NOTE | 2017-01-27 13:17 | REP ---
Left tibia-fibula four views : There is no fracture or dislocation. Mineralization and joint spaces are normal. There are no calcifications or foreign bodies. Impression: Negative Left tibia-fibula . Signed by Juvenal Dorantes MD 01/27/2017 07:31 A
--- NOTE | 2017-01-27 13:17 | REP ---
Left femur four views AP and lateral projections: There is no fracture or dislocation. Mineralization is normal. There are two calcifications projected over the proximal femur of uncertain significance. One of these two calcifications was and present on the prior study of 03/06/2015 and appears unchanged. The second calcification was not present previously. I cannot determine whether this calcification is intrinsic or extrinsic to the femur on the views presented. If it is within the bone metastatic disease would be a concern. CT and / or radionuclide bone scan might be considered for followup. Signed by Juvenal Dorantes MD 01/27/2017 07:37 A
--- NOTE | 2017-01-28 08:41 | ECGEPIP ---
Stationary ECG Study [facility] - ED Test Date: 2017-01-26 Pat Name: MONSERRAT VELASCO Department: Room: - Gender: F Rheologist: kunal : 1940 Requested By: Lelo Loza Order Number: [id number] Reading MD: Larissa Mckeon Measurements Intervals [place] Rate: 52 P: -72 IA: 131 QRS: 6 QRSD: 86 T: 26 QT: 428 QTc: 401 Interpretive Statements BRADYCARDIA ABNORMAL RHYTHM ECG NSTTW ABNORMALITY Electronically Signed On 01-28-2017 8:41:25 EDT by Larissa Mckeon
== END 2017-01-26 22:50 | disposition home or self-care (01) ==
LOC: M ED 18:18
DX: M25.552 Pain in left hip (principal); I25.10 Atherosclerotic heart disease of native coronary artery without angina pectoris; I25.2 Old myocardial infarction; N18.9 Chronic kidney disease, unspecified; F17.210 Nicotine dependence, cigarettes, uncomplicated; Z88.1 Allergy status to other antibiotic agents; Z88.2 Allergy status to sulfonamides; Z88.0 Allergy status to penicillin; Z88.5 Allergy status to narcotic agent; Z88.8 Allergy status to other drugs, medicaments and biological substances

== ENCOUNTER 2017-01-27 10:36 | Inpatient (IN) | payer MEDICARE, MEDICAID ==
[~2017-01-27] VITALS: Ht 157.5 cm; Wt 78.8 kg
[~2017-01-27 10:36] MED LIST changes: +ADVAIR; +PROAAER10; +TRIA1CR TOP
[2017-01-27 12:12] LABS: MEAN CORPUSCULAR HEMOGLOBIN 30.3 pg (27.0-33.0); MEAN CORPUSCULAR HGB CONC 32.7 g/dl (32.0-36.5); MEAN CORPUSCULAR VOLUME 92.7 fl (80.0-96.0); RED CELL DISTRIBUTION WIDTH 13.6 % (11.5-14.5); WHITE BLOOD COUNT 11.7 K/mm3 (4.0-10.0)
[2017-01-27 12:19] LABS: EOSINOPHILS 2 % (0-5)
[2017-01-27 12:35] LABS: ALBUMIN 3.2 GM/DL (3.2-5.2); ALBUMIN/GLOBULIN RATIO 1.03 (1.00-1.93); ALKALINE PHOSPHATASE 56 U/L (45-117); ALT/SGPT 21 U/L (12-78); ANION GAP 4 MEQ/L (8-16); AST/SGOT 14 U/L (15-37); BILIRUBIN,DIRECT < 0.1 MG/DL (0.0-0.2); BILIRUBIN,TOTAL 0.4 MG/DL (0.2-1.0); BLOOD UREA NITROGEN 20 MG/DL (7-18); CALCIUM LEVEL 11.3 MG/DL (8.8-10.2); CARBON DIOXIDE LEVEL 41 MEQ/L (21-32); CHLORIDE LEVEL 98 MEQ/L (98-107); GLUCOSE, FASTING 110 MG/DL (83-110); POTASSIUM SERUM 4.2 MEQ/L (3.5-5.1); SODIUM LEVEL 143 MEQ/L (136-145); TOTAL PROTEIN 6.3 GM/DL (6.4-8.2)
--- NOTE | 2017-01-27 13:33 | REP ---
CT study of the cervical spine without contrast: History: Injury in a fall. Comparison study is from June 04, 2012. Technique: Helical scanning is acquired and overlapping 2 mm high resolution axial images were generated and reviewed at bone and soft tissue window settings. Coronal and sagittal multiplanar re-formations images are generated. CT findings: There is no evidence of cervical spine element fracture. No skull base fracture is seen. Cervical vertebral body heights are preserved. Alignment is normal. Facet joints are normally aligned bilaterally at each cervical level on multiplanar re-formations images. There is no evidence of intraspinal or paraspinal hematoma. No extra vertebral abnormality is seen. There is diffuse degenerative disc disease throughout the cervical spine. This is most pronounced at C4-5 but also moderate posterior osteophytic ridging is seen at C2-3, C3-4, C5-6 and to some degree C6-7. There is osteoarthritic facet hypertrophy in the mid cervical spine bilaterally most pronounced on the left at C2-3 and C3-4. Incidental note is made of a 1.6 cm radiolucent lesion to the right of midline in the sixth cervical vertebral body. This is new from the 2012 prior study and has a somewhat suspicious appearance. A malignant primary or metastatic lesion must be suspected. No other new radiolucency is seen. There are other small stable radiolucent benign cysts seen in C2 C3-C4 and C5. Impression: Moderate degenerative spondylosis change. Incidental 1.6 cm radiolucent lesion in the C6 vertebral body etiology uncertain. Primary versus metastatic lesion suspected. Otherwise negative CT study of the cervical spine without contrast. No fracture seen. Consider radionuclide bone scan. MRI scanning may provide additional information. Signed by Roberto Velazquez MD 01/27/2017 01:24 P
--- NOTE | 2017-01-27 13:43 | REP ---
Noncontrast head CT: History: Injury in a fall. Comparison head CT study January 02, 2017. Findings: Bone window settings demonstrate an intact bony calvarium. No bony destructive lesion or fracture is seen. No scalp hematoma is appreciated. On soft tissue window settings, there is diffuse mild to moderate cerebral atrophy. Physiologic calcification is seen in the basal ganglia bilaterally. There is no evidence of intracranial hemorrhage. No mass or infarction is seen. No extra-axial fluid collection or midline shift is observed. Moderate vascular calcification is seen. Impression: Vascular calcification, diffuse atrophy. No acute intracranial abnormality. Signed by Roberto Velazquez MD 01/27/2017 02:43 P
--- NOTE | 2017-01-27 13:48 | REP ---
CT ABDOMEN AND PELVIS WITHOUT IV CONTRAST: CT abdomen and pelvis performed without oral or IV contrast. Sagittal and coronal reconstruction images are performed. The visualized lung bases demonstrate mild fibroatelectatic change. The liver, gallbladder, spleen, adrenals, pancreas and kidneys are grossly unremarkable. There is no renal or ureteral calculus and no hydroureteronephrosis. There are moderate atherosclerotic calcifications of the abdominal without aneurysm. An IVC filter is present. There is no adenopathy. There is no free air or free fluid. No bowel wall thickening is seen. I see no pelvic mass. Urinary bladder is grossly unremarkable. There are a few sigmoid diverticula present. IMPRESSION: No acute abnormalities are discussed in detail above. Signed by Juvenal Laird MD 01/27/2017 05:05 P
[2017-01-27] MEDS ORDERED: KETOROLAC 30 MG/ML VIAL (J1885) IV ONE (14:15)
--- NOTE | 2017-01-27 14:57 | HPEPDOC ---
Medical History and Physical Date of Admission 01/27/17 History and Physical ATTENDING: PCP: Dr Lee Cardiology. Dr Curry Pulmonary. Dr Valentine CC: Falls HPI: 76yoF with a past medical history significant for COPD, O2 dependent, CHF, recent admission 01/02 for GI bleed, who states she has had 2 falls in past 24 hrs. She was seen in ED last PM and released home, but states her legs "gave out " again today and she fell. She reports Left hip pain. No LOC, denies head injury. States she has some lower abdominal discomfort, had diarrhea Tue and Tuesday but denies currently. Dtr states she has been weaker since her last d/c from [facility]. Has been using a walker and wheelchair at home. States her breathing has been at baseline. 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 Denies any fevers, chills, FELICIANO, CP, SOB, cough, palpitations, abdominal pain, N/ V/D or changes in bladder habits. Upon presentation to the hospital the patient was found to have recurrent falls , thus the hospitalist team was consulted. PMHx: 1. H/O Pulmonary embolism (PE). 2. COPD, steroid/O2 dependent,on 3 liters nasal cannula at home. 3. Anxiety. 4. Depression. 5. Congestive heart failure with diastolic dysfunction. 6. Gastroesophageal reflux disease (GERD). 7. h/o GI bleed. 8. Shingles. 9. CKD3 10. chronic neck pain and back pain 11. HLD 12. insomnia 13. H/O Breast Ca 03/21 HER 2 OLIVE PSHX: Bilateral mastectomy, tubal ligation, ankle arthroplasty, left shoulder arthroplasty left ankle arthroplasty IVC filter placement SOCHX: Resides in: Lives with daughter Marital Status: Tobacco use: quit 5 years ago ETOH: occasional Illicit Drugs: Denies Recent travel: none Advanced directives: MOLST on chart. DNR. FAMHX: one brother and three sisters. breast cancer, lung cancer. father , unknown mother diabetes and heart conditions. ROS: As noted in HPI, otherwise 11pt ROS of systems reviewed and unremarkable. PE: GEN: 76yoF, appears stated age. Well-nourished, well developed. No acute distress. Alert and oriented x 3. teary throughout exam. HEENT: Normocephalic, atraumatic. Pupils are equal, round, and reactive to light. Extraocular movements are intact. No nystagmus appreciated. Sclera are nonicteric. Conjunctiva without injection. Nose midline. Nasal turbinates without bogginess. No facial asymmetry. Moist mucous membranes. Pharynx pink and moist. Neck supple, trachea midline. No lymphadenopathy or thyromegaly appreciated. CHEST: Regular rate and rhythm, +S1, +S2 LUNGS: Decreased BS bilaterally. Expiratory wheezes, no rales, or rhonchi. No accessory muscle use. ABD: Round, soft, non-tender, non-distended. +Bowel sounds throughout. No rebound or guarding. No costovertebral angle tenderness. EXT: Pulses 2+ bilaterally dorsalis pedis and radial. No lower extremity edema appreciated. SKIN: [place], dry, warm. Capillary refill <2sec. No rashes. NEURO: Alert and oriented x 3. Cranial nerves III-XII are intact. Pt c/o pain left hip and pain with movement. CT: head Vascular calcification, diffuse atrophy. No acute intracranial abnormality. CT C spine Moderate degenerative spondylosis change. Incidental 1.6 cm radiolucent lesion in the C6 vertebral body etiology uncertain. Primary versus metastatic lesion suspected. Otherwise negative CT study of the cervical spine without contrast. CT A/P No acute abnormalities are discussed in detail above. Thoracic XR pending Lt Hip No acute fracture or dislocation. Sclerotic lesion in the intertrochanteric region of the proximal left femur. This is new compared to prior study of 07/28/2016. I cannot exclude a metastatic lesion. EKG:poor tracing, Possible afib with slow VR. A&P: 76yoF with a past medical history significant for COPD, O2 dependent, CHF, recent admission 01/02 for GI bleed, who states she has had 2 falls in past 24 hrs. She was seen in ED last PM and released home, but states her legs "gave out " again today and she fell. She reports Left hip pain. No LOC, denies head injury. States she has some lower abdominal discomfort, had d 1. The patient will be admitted to PCU for at least [address] Hammond's service. Pt is discussed with Dr Dc. 2. Unsteady gait/Falls. EKG with bradycardia, repeat tracing requested as initial was poor quality. Orthostatic VS. PCU/TM. Repeat EKG indicate SR 65 bpm. PT/OT/PFS. 3. H/O Diarrhea. GI panel. 4. Abdominal pain. BC. UA/UC. 5. COPD Steroid/O2 dependent. Cont O2 3LNC. Spiriva, Advair. prn nebs. 6. HTN/CHF diastolic. Norvasc with hold parameters. HOLD po lasix held temporarily. 7. HLD. Statin. 8. GERD. PPI/carafate. 9. Chronic pain. Gabapentin, uses [place] prn. 10. Anxiety/depression. 11. Cervical/Lt Hip lesion. Not present CT hip 01/27. Will discuss with concrete form setter Ortho. Requested MRI brain with and without MRI C spine with contrast. Whole body bone scan. Review with Ortho, Dr Palomo, pending results. 12. H/O breast Ca. 13. CKD. baseline 1.5-1.67. 1.8. Hold lasix. 500cc IVF x 1. MED REC PENDING AT THIS TIME DVT prophylaxis. The patient is a DNR Vital Signs Vital Signs Date Time Temp Pulse Resp B/P (MAP) Pulse Ox O2 Delivery O2 Flow Rate FiO2 01/27/17 14:16 61 16 157/80 (105) 93 Nasal Cannula 2.5 01/27/17 10:57 97.9 Laboratory Data Labs 24H Laboratory Tests 2 01/27/17 12:00: Neutrophils 87H, Lymphocytes (Manual) 11L, Eosinophils (Manual) 2, Platelet Estimate NORMAL, Anion Gap 4L, Glomerular Filtration Rate 29.0L, Calcium Level 11.3H, Aspartate Amino Transf (AST/SGOT) 14L, Alanine Aminotransferase (ALT/SGPT ) 21, Alkaline Phosphatase 56, Total Bilirubin 0.4, Direct Bilirubin < 0.1, Total Protein 6.3L, Albumin 3.2, Albumin/Globulin Ratio 1.03, Lipase 123 01/27/17 13:28: Urine Appearance CLOUDYH, Urine Color YELLOW, Urine pH 7.0, Urine Specific [place] 1.005, Urine Protein NEGATIVE, Urine Glucose (UA) NEGATIVE, Urine Ketones NEGATIVE, Urine Urobilinogen 0.2, Urine Bilirubin NEGATIVE, Urine Leukocyte Esterase 3+H, Urine Blood NEGATIVE, Urine Nitrite NEGATIVE, Urine WBC (Auto) TNTCH, Urine RBC (Auto) 6H, Urine Hyaline Casts (Auto) 0, Urine Bacteria (Auto) 1+H, Urine Squamous Epithelial Cells 2, Urine Sperm (Auto) CBC/BMP Laboratory Tests 01/27/17 12:00 Home Medications Scheduled (Calcium 500+D 500-200 mg-Unit) 1 Tab Tab, 1 TAB PO BID Amlodipine Besylate (Amlodipine Besylate) 2.5 Mg Tab, 2.5 MG PO DAILY Aspirin (Aspirin EC) 81 Mg Tabec, 81 MG PO DAILY Fluoxetine Hcl (Fluoxetine HCl) 20 Mg Cap, 60 MG PO DAILY Fluticasone Propionate (Fluticasone Propionate 0.05%) 120 [place]/16 Gm Naspr, 2 SPRAY NA BID PER NOSTRIL Furosemide (Furosemide) 40 Mg Tab, 40 MG PO DAILY Gabapentin (Gabapentin) 300 Mg Cap, 300 MG PO BID Gabapentin (Gabapentin) 600 Mg Tab, 600 MG PO QHS Magnesium Oxide (Magnesium Oxide 400) 400 Mg Tab, 400 MG PO DAILY TAKES AT NOON Multivitamins *[facility] STOCKED* (Thera M Plus *[facility] STOCKED*) 1 Tab Tab, 1 TAB PO DAILY TAKES AT NOON Nystatin (Nystatin Oral Susp) 5 Ml Susp, 5 ML SS QID Oxybutynin Chloride (Oxybutynin Chloride ER) 15 Mg Tab, 15 MG PO DAILY Pantoprazole Sodium (Pantoprazole Sodium) 40 Mg Tab, 40 MG PO DAILY Prednisone (Prednisone) 10 Mg Tab, 10 MG PO DAILY Salmeterol/Fluticasone (Advair Diskus 250-50 Mcg/Dose) 14 Puff/Inhaler Aerp, 1 PUFF INH BID Simvastatin (Simvastatin) 10 Mg Tab, 10 MG PO QHS Sucralfate (Sucralfate) 1 Gm Tab, 1 GM PO AC Tiotropium [place] Monohydrate (Spiriva Handihaler) 18 Mcg Cap, 1 INHALATION INH DAILY Trazodone HCl (Trazodone HCl) 100 Mg Tab, 100 MG PO QHS Scheduled PRN Acetaminophen/Hydrocodone ([place] 7.5-325 mg) 1 Tab Tab, 1 TAB PO QID PRN for PAIN Albuterol Sulfate (Ventolin Hfa) 200 Puff/8 Gm Aers, 2 PUFF INH Q4H PRN for SHORTNESS OF BREATH Albuterol/Ipratropium (Ipratropium [place]/Albut 0.5-2.5 (3) mg/3Ml) 1 Alek Alek, 1 ALEK INH Q4H PRN for SHORTNESS OF BREATH Nitroglycerin (Nitrostat) 0.4 Mg Subl, 0.4 MG SL NITRO PRN for ANGINA Quetiapine Fumerate (Quetiapine Fumarate) 50 Mg Tab, 50 MG PO QHS PRN for MOOD Triamcinolone Acet (Triamcinolone Acetonide 0.1% Crm) 1 Dose/15 Gm Cr, 1 DOSE TOP BID PRN for ITCHING APPLIES TO BACK Allergies Coded Allergies: Lisinopril (Verified Allergy, Intermediate, HIVES ND SWELLING, 09/18/12) Penicillins (Verified Allergy, Intermediate, TRIMOX-HIVES, 09/18/12) Sulfa Drugs (Verified Allergy, Intermediate, HIVES, 09/18/12) Amoxicillin (Unverified Allergy, Unknown, 08/20/15) Oxycodone (Verified Allergy, Unknown, PERCOCET, 09/18/12) Temazepam (Unverified Allergy, Unknown, 08/20/15) Sherri Mcrae Jan 27, 2017 14:57
--- NOTE | 2017-01-27 15:08 | REP ---
THORACIC SPINE SERIES: AP and lateral views of the thoracic spine performed with three total views obtained. There is no compression fracture or malalignment with normal thoracic kyphosis. There is moderate diffuse spurring. There is moderate disc space narrowing and subchondral sclerosis at virtually all levels. The posterior elements are intact. There is mild curvature of the thoracic spine convex to the right. IMPRESSION: Diffuse degenerative changes. No evidence of acute fracture or dislocation. Signed by Juvenal Laird MD 01/27/2017 05:06 P
--- NOTE | 2017-01-27 15:09 | REP ---
LEFT HIP: Two views of the left hip are performed. I see no acute fracture or dislocation. There is a sclerotic density in the intertrochanteric region of the proximal left femur measuring 1.2 cm in diameter. This is not definitely seen on prior plain films from 07/28/2016. I cannot exclude a metastatic lesion. IMPRESSION: No acute fracture or dislocation. Sclerotic lesion in the intertrochanteric region of the proximal left femur. This is new compared to prior study of 07/28/2016. I cannot exclude a metastatic lesion. Signed by Juvenal Laird MD 01/27/2017 05:06 P
[2017-01-27] MEDS ORDERED: LevoFLOXacin IV 250 MG in APPROPRIATE DILUENT 1 EA IV ONE (15:45)
[2017-01-27] MEDS ORDERED: IPRATROPIUM 0.5MG/ALBUTEROL 2.5MG INH SOL UD 3ML (DUONEB)(J7620) NEB PRN (16:00)
[2017-01-27] MEDS ORDERED: NS 500 ML IV ONE (16:15)
[2017-01-27] MEDS ORDERED: TRIAMCINOLONE ACET 0.1% CREAM 15 GM TOP PRN (16:30)
[2017-01-27] MEDS ORDERED: QUEtiapine FUMARATE 50 MG TAB PO PRN (16:30)
[2017-01-27 20:00] VITALS: BP 134/62
[2017-01-27] MEDS: IPRATROPIUM 0.5MG/ALBUTEROL 2.5MG INH SOL UD 3ML (DUONEB)(J7620) NEB SCH (20:00)
[2017-01-27] MEDS: NYSTATIN 500,000 U/5 ML SUSP UDC SS SCH ×2 (20:03→21:23)
[2017-01-27] MEDS: traZODone 100 MG TAB PO SCH (20:11)
[2017-01-27] MEDS: SUCRALFATE 1 GM TAB PO SCH (20:11)
[2017-01-27] MEDS: GABAPENTIN 300 MG CAP PO SCH (20:11)
--- NOTE | 2017-01-27 20:11 | ECGEPIP ---
Stationary ECG Study [facility] Test Date: 2017-01-27 Pat Name: MONSERRAT VELASCO Department: Room: [facility] Gender: F Efficiency Analyst: klaus : 1940 Requested By: Sherri Mcrae Order Number: [id number] Reading MD: Arnaldo Riggs Measurements Intervals [place] Rate: 65 P: 116 FL: 138 QRS: -6 QRSD: 84 T: 23 QT: 404 QTc: 422 Interpretive Statements SINUS RHYTHM NON-SPECIFIC STT ABNORMALITIES SIMILAR 01/02/17 Electronically Signed On 01-27-2017 20:11:26 EDT by Arnaldo Riggs
[2017-01-27] MEDS: ANEXSIA, NORCO 7.5MG/325MG TABLET(HYDROCODONE/APAP) PO PRN (20:12)
[2017-01-27] MEDS: ADVAIR HFA 115/21MCG INHALER INH SCH (21:00)
[2017-01-27] MEDS: SIMVASTATIN 10 MG TAB PO SCH (21:23)
[2017-01-27] MEDS: FLUTICASONE PROP 0.05% NASAL SPRAY 16 GM (FLONASE) SCH (21:24)
[2017-01-28] VITALS (12 sets, daily range): BP systolic 122–189; BP diastolic 57–87
[2017-01-28] MEDS: IPRATROPIUM 0.5MG/ALBUTEROL 2.5MG INH SOL UD 3ML (DUONEB)(J7620) NEB SCH ×4 (02:00→20:00)
[2017-01-28] MEDS: TIOTROPIUM INHALER/CAPSULE (SPIRIVA) INH SCH (07:33)
[2017-01-28] MEDS: ADVAIR HFA 115/21MCG INHALER INH SCH ×2 (07:33→20:41)
[2017-01-28 07:40] LABS: BASO % 0.2 % (0.0-1.0); EOS # 0.2 K/mm3 (0.0-0.50); EOS % 2.4 % (0.0-3.0); LARGE UNSTAINED CELL # 0.2 K/mm3 (0.0-0.4); LARGE UNSTAINED CELL % 2.2 % (0.0-4.0); LYMPH # 1.8 K/mm3 (1.5-4.5); MEAN CORPUSCULAR HEMOGLOBIN 30.2 pg (27.0-33.0); MEAN CORPUSCULAR HGB CONC 32.6 g/dl (32.0-36.5); MEAN CORPUSCULAR VOLUME 92.5 fl (80.0-96.0); MONO # 0.6 K/mm3 (0.0-0.8); MONO % 7.6 % (0.0-5.0); NEUTROPHILS # 5.6 K/mm3 (1.8-7.7); NEUTROPHILS % 67.6 % (36.0-66.0); PLATELET COUNT, AUTOMATED 251 k/mm3 (150-450); RED CELL DISTRIBUTION WIDTH 13.4 % (11.5-14.5); WHITE BLOOD COUNT 8.3 K/mm3 (4.0-10.0)
[2017-01-28 08:19] LABS: ALBUMIN 2.8 GM/DL (3.2-5.2); ALBUMIN/GLOBULIN RATIO 1.08 (1.00-1.93); ALKALINE PHOSPHATASE 49 U/L (45-117); ALT/SGPT 17 U/L (12-78); ANION GAP 8 MEQ/L (8-16); AST/SGOT 11 U/L (15-37); BILIRUBIN,TOTAL 0.3 MG/DL (0.2-1.0); BLOOD UREA NITROGEN 22 MG/DL (7-18); CALCIUM LEVEL 10.4 MG/DL (8.8-10.2); CARBON DIOXIDE LEVEL 36 MEQ/L (21-32); CHLORIDE LEVEL 101 MEQ/L (98-107); CREATININE FOR GFR 2.07 MG/DL (0.55-1.02); GLOMERULAR FILTRATION RATE 24.7 (>39); GLUCOSE, FASTING 94 MG/DL (83-110); MAGNESIUM LEVEL 1.5 MG/DL (1.8-2.4); POTASSIUM SERUM 4.2 MEQ/L (3.5-5.1); SODIUM LEVEL 145 MEQ/L (136-145); TOTAL PROTEIN 5.4 GM/DL (6.4-8.2)
[2017-01-28] MEDS: NS 1,000 ML IV SCH (08:46)
[2017-01-28] MEDS: FLUTICASONE PROP 0.05% NASAL SPRAY 16 GM (FLONASE) SCH ×2 (10:40→20:24)
[2017-01-28] MEDS: GABAPENTIN 300 MG CAP PO SCH ×3 (10:42→20:24)
[2017-01-28] MEDS: FLUoxetine 20 MG CAP PO SCH (10:42)
[2017-01-28] MEDS: PANTOPRAZOLE 40MG TAB (PROTONIX) PO SCH (10:42)
[2017-01-28] MEDS: ASPIRIN 81 MG ENTERIC TAB PO SCH (10:42)
[2017-01-28] MEDS: MULTIVITAMINS/MINERALS THERAP 1 TAB PO SCH (10:42)
[2017-01-28] MEDS: oxyBUTYnin *DITROPAN XL* 5 MG TABCR PO SCH (10:43)
[2017-01-28] MEDS: SUCRALFATE 1 GM TAB PO SCH ×3 (10:43→17:28)
[2017-01-28] MEDS: predniSONE 10 MG TAB PO SCH (10:43)
[2017-01-28] MEDS: NYSTATIN 500,000 U/5 ML SUSP UDC SS SCH ×4 (10:43→20:24)
[2017-01-28] MEDS ORDERED: MAG SULF 1GM/100ML (MAG RUN) 1 GM in APPROPRIATE DILUENT 1 EA IV ONE (11:00)
[2017-01-28 11:31] LABS: INR 0.97
--- NOTE | 2017-01-28 12:03 | REP ---
WHOLE BODY BONE SCAN: Following the intravenous administration of 22 mCi of technetium 99m MDP, patient's whole body is imaged in the anterior and posterior projections with additional oblique images of the thoracic and pelvic regions performed as well as lateral views of the calvarium and knees. There is a small focus of increased uptake in the intertrochanteric region of the proximal left femur. Recent plain film and CT scan showed a small sclerotic lesion at this location and this is quite suspicious for a metastatic lesion. There is no other compelling scintigraphic evidence of osseous metastases in the axial or appendicular skeleton. Focal increased uptake in the posteromedial left 8th and 10th ribs appear to represent rib fractures on recent CT exams. Scattered arthritic uptake is seen in the spine diffusely without definite evidence of metastatic lesion. Intense increased uptake at the left knee joint in the distal femur and proximal tibial laterally is at least in part due to arthritic change. However, underlying occult fracture cannot be excluded. There is mild arthritic uptake in the ankles and feet as well as at the right knee. There is arthritic uptake at the shoulders and sternoclavicular joints. IMPRESSION: Focus of increased uptake in the proximal left femur is highly suspicious for a metastatic lesion. No other definite scintigraphic evidence of osseous metastases. Scattered arthritic uptake as above. Probable healing fractures left posterior 8th and 10th ribs. Intense uptake in the distal left femur and proximal left tibia laterally is at least in part due to arthritic change but underlying occult fracture cannot be excluded. Signed by Juvenal Laird MD 01/28/2017 04:43 P
--- NOTE | 2017-01-28 12:05 | REP ---
CT of the chest without IV contrast: Comparison is 01/16/2014. There is focal soft tissue density in the deep posterior sulcus of the right lung. This is nonspecific and could be atelectasis or could be a soft tissue mass. Follow-up is recommended. There is focal atelectasis in the superior segment of the right lower lobe. No nodules or masses are identified otherwise. There is borderline bronchiectasis. There are multiple bulla, particularly in the lung apices bilaterally. There is no mediastinal adenopathy. There are a few normal-sized nodes. There is no axillary adenopathy. There are surgical clips in the axilla bilaterally. This is unchanged. There are bilateral mastectomies. This is unchanged. The ascending thoracic aorta measures 4.0 cm and is mildly dilated. The thoracic aorta is otherwise unremarkable except for calcified atheroma. Cardiac size is normal. There are coronary artery calcified vascular atheroma plaques. In the visualized upper abdomen there is a stable low density nodule of the right adrenal, unchanged, therefore likely benign. Impression: Focal atelectasis versus soft tissue nodule in the deep posterior sulcus of the right lung, not present previously. Atelectasis in the superior segment of the left lower lobe. Multiple bulla, vertically in the lung apices. Borderline bronchiectasis. Bilateral mastectomies. Stable low density right adrenal nodule. The ascending aorta is mildly dilated. Signed by Juvenal Dorantes MD 01/28/2017 11:57 A
[2017-01-28] MEDS ORDERED: LIDOCAINE 1% MDV 20ML VIAL As Ordered ONE (12:20)
--- NOTE | 2017-01-28 13:48 | REP ---
POST BIOPSY CHEST: Expiratory view of the chest is performed status post left lung biopsy. There is a small left apical pneumothorax 1.7 cm air gap. Atelectatic changes are seen in each lung base. IMPRESSION: Small left apical pneumothorax status post left lung biopsy. Signed by Juvenal Laird MD 01/28/2017 04:46 P
[2017-01-28] MEDS: MAGNESIUM OXIDE 400 MG TAB (MAG-OX) PO SCH (14:33)
--- NOTE | 2017-01-28 16:03 | IPNPDOC ---
Text Note Date of Service The patient was seen on 01/28/17. NOTE Subjective: Patient is 76 year old female with a PMHx of HTN, Diastolic CHF, DLP, COPD on 3L O2, PE/DVT s/p IVC Filter, CKD3, Hx of Breast CA (03/2009, s/p b/l mastectomy and chemotherapy), Anxiety / Depression / Insomnia, Hx of GI bleed, and GERD who presented to the ER with complaints of multiples falls over the last 24 hours. She was evaluate in the ER in the past, but was sent home. She is back again and noted that her legs gave out under her. She has begun to use a walker / wheelchair at home. Patient was seen and examined at the bedside. Currently she notes some left hip pain. No chest pain, SOB, palpitations or diaphoresis. Objective: Vitals (See below) General: Lying in bed, no acute distress, comfortable, AAOx3 HEENT: NC, AT CVS: RRR, +S1S2 Lungs: Fair air entry b/l, no appreciable wheezing / rales / rhonchi Abdomen: Soft, ND, NT, +BSx4 Extremities: - Edema, - Calf tenderness Assessment and plan: 1. Unsteady gait / Multiple falls - possibly 2/2 generalized deconditioning / weakness, possibly 2/2 bradycardia, possibly 2/2 orthostatic hypotension - Presented with multiple falls over last 24 hours - Physical unrevealing - Elevation in Cr from baseline - No acute fractures noted - CT chest 01/28: Focal atelectasis, vs soft tissue nodule in the deep posterior sulcus of the right lung - c/w IV fluid hydration - c/w Physical therapy 2. Bradycardia - Noted to be in sinus bradycardia at rate of upper 50s-60s - EKG with sinus bradycardia at 65 - Medication list reviewed - c/w PCU monitoring 3. Possible metastatic disease; lung mass on left lung field - Bone Scan 01/28: focus of increased uptake in proximal left femur, suspicious for metastatic lesion, healing fractures at left posterior ribs 01/20, possible arthritic change at left tibia / distal left femur - s/p CT Guided biopsy 01/28: pathology pending - Dr. Valentine (Pulmonary) following; appreciate their input 4. Hypercalcemia; corrected calcium of 11.4 - likely 2/2 bone disease (metastatic disease), possibly paraneoplastic syndrome - will check Vitamin D, PTH and PTHrP - c/w IV fluid hydration 5. Elevation of Cr on CKD3 - Cr on admission of 1.80; currently at 2.07 - Cr baseline at 1.1-1.2 - c/w IV fluid hydration 6. Normocytic anemia - Hg stable - Hx of GI bleed in past - Will monitor Hg 7. HTN - c/w Amlodipine 8. Diastolic CHF - Lasix on hold 9. DLP - c/w Simvastatin 10. COPD on 3L O2 - c/w Duoneb PRN, [place] adn Spiriva 11. PE/DVT s/p IVC Filter 12. Hx of Breast CA (03/2009, s/p b/l mastectomy and chemotherapy) 13. Anxiety / Depression / Insomnia - c/w Trazodone, Quetiapine 14. Overactive bladder - c/w Oxybutynin 15. Peripheral neuropathy - c/w Gabapentin 16. Chronic back pain - c/w Pain control from home 17. GERD - c/w Sucralfate and Protonix 18. DVT prophylaxis - c/w SCDs Code status: - DNR / DNI VS,Fishbone, I+O VS, Fishbone, I+O Laboratory Tests 01/28/17 07:27 Red Blood Count 3.66 L, Mean Corpuscular Volume 92.5, Mean Corpuscular Hemoglobin 30.2, Mean Corpuscular Hemoglobin Concent 32.6, Red Cell Distribution Width 13.4, Neutrophils (%) (Auto) 67.6 H, Lymphocytes (%) (Auto) 20.0 L, Monocytes (%) (Auto) 7.6 H, Eosinophils (%) (Auto) 2.4, Basophils (%) ( Auto) 0.2, Neutrophils # (Auto) 5.6, Lymphocytes # (Auto) 1.8, Monocytes # (Auto ) 0.6, Eosinophils # (Auto) 0.2, Basophils # (Auto) 0.0, Calcium Level 10.4 H, Aspartate Amino Transf (AST/SGOT) 11 L, Alanine Aminotransferase (ALT/SGPT) 17, Total Creatine Kinase 21 L, Alkaline Phosphatase 49, Total Bilirubin 0.3, Total Protein 5.4 L, Albumin 2.8 L Vital Signs Date Time Temp Pulse Resp B/P (MAP) Pulse Ox O2 Delivery O2 Flow Rate FiO2 8/18/17 14:19 130/60 (83) 01/28/17 14:04 98.3 64 22 90 Nasal Cannula 3.0 I&O- Last 24 Hours up to 6 AM 01/28/17 06:00 Intake Total 550 ml Output Total 0 ml Balance 550 ml LIZZETH STARK MD Jan 28, 2017 15:58
--- NOTE | 2017-01-28 17:32 | REP ---
CT GUIDED LEFT LOWER LOBE LUNG BIOPSY: The procedure was performed by EDGARD Olson under the direct supervision of Dr. Laird. The procedure along with its risks, benefits, and complications were discussed with the patient prior to the procedure. Informed consent was obtained both verbally and written. The patient was identified in the CT suite and placed on her right hand side on the CT table. The left lower lobe lesion was localized under CT guidance. The patient was marked, prepped and draped in the usual sterile fashion. A procedural "time out" was performed to ensure that the correct patient site and procedure were being performed. Local anesthesia was achieved using 1% Xylocaine. The needle was inserted under CT guidance. 2 core biopsy specimens were obtained. These were placed in Formalin and will be sent to Cytology for further evaluation. The patient began coughing during the procedure and grew uncomfortable. Procedure was stopped at that point. The needle was removed and post procedure CT and x-rays showed a pneumothorax. A 2 hour followup chest x-ray will be obtained to evaluate the pneumothorax to see if further evaluation needs to be made. The patient was discharged back to her room on the floor. Reviewed by EDGARD Trinidad 01/31/2017 08:23 AEdited and Signed by Juvenal Laird MD 01/31/2017 08:59 A
--- NOTE | 2017-01-28 18:21 | REP ---
Portable chest x-ray: Single view. Timestamp 03:27 p.m. History: Pneumothorax. Comparison chest x-ray January 28, 2017. 01:32 p.m. film. Findings: On the current radiograph there is no visible pneumothorax. Oxygen tubing is seen. EKG monitoring electrodes are noted. A prosthetic left shoulder joint is seen. Cardiomediastinal silhouette is unchanged. Impression: The previously noted left-sided pneumothorax is no longer visible radiographically. Signed by Roberto Velazquez MD 01/28/2017 07:40 P
[2017-01-28] MEDS: ANEXSIA, NORCO 7.5MG/325MG TABLET(HYDROCODONE/APAP) PO PRN (19:28)
--- NOTE | 2017-01-28 19:44 | REP ---
MRI cervical spine without contrast: History: Lytic lesion in the C6 vertebral body on CT study of the cervical spine from 01/27/2017. History of breast carcinoma. Technique: Sagittal and axial T1 and T2-weighted scans are acquired in the usual fashion with and without fat saturation. Sequences include spin echo, turbo spin-echo, and STIR imaging sequences. MRI findings: Lumbar vertebral body heights are preserved. There is degenerative spondylosis most pronounced at C4-5, C5-6, and C6-7 with disc space narrowing at each of these levels. The known vertebral body lesion on the right side at C6 is observed on T1-weighted scans showing low T1 signal intensity in an area measuring approximately 13 mm in greatest anteroposterior dimension. This shows hyperintensity on inversion recovery sequence and intermediate signal on turbo spin echo T2. This corresponds with a radiolucent lesion seen by CT. There are other small low T1 intermediate T2 signal intensity areas and C3, T1, and possibly C7. There is a lesion in the tendons which has a different signal intensity characteristics and which is probably arthritis associated cyst formation. All of these are new from prior study. The prior study of 2006 showed a hemangioma in the 3rd thoracic vertebrae which is not visible on today's study consistent with regression. There is a possible T3 spinous process low T1 low T2 signal intensity lesion which may also be a metastasis. There is no evidence of cord compressive lesion or epidural extension. There is diffuse disc bulging at C5-6, C4-5, C3-4, and to some degree C6-7. There is bilateral uncovertebral spurring at these levels as well. Canal size is borderline through these segments. Impression: Findings compatible with metastatic disease the largest lesion seen is at C6. There is degenerative spondylosis as well. Signed by Roberto Velazquez MD 01/28/2017 07:53 P
[2017-01-28] MEDS: SIMVASTATIN 10 MG TAB PO SCH (20:25)
[2017-01-28] MEDS: traZODone 100 MG TAB PO SCH (20:25)
--- NOTE | 2017-01-28 20:44 | REP ---
MRI brain without contrast: History: Question metastatic disease. History of falls. Comparison brain MRI study is from 01/04/2017. Technique: Axial and sagittal imaging planes are utilized for T1 and T2-weighted scans. Sequences include spin-echo, fast spin echo, FLAIR, and diffusion weighted sequences. MRI findings: No bony calvarial lesion is apparent. No intraorbital abnormality is seen. There are some fluid signal intensity emanating in the mastoid air cells bilaterally as previously noted. There is no other evidence of paranasal sinus disease. There is moderate diffuse cerebral atrophy. No intracranial mass lesion is seen. No intracranial hemorrhage is appreciated. Diffusion weighted scans show no evidence to suggest acute ischemia. No extra-axial fluid collection or midline shift is seen. There are small vessel atherosclerotic changes. Impression: Stable small vessel atherosclerotic changes. Moderate diffuse atrophy. No acute intracranial abnormality. Signed by Roberto Velazquez MD 01/29/2017 11:04 A
[2017-01-29 00:30] VITALS: BP 123/60
[2017-01-29] MEDS: IPRATROPIUM 0.5MG/ALBUTEROL 2.5MG INH SOL UD 3ML (DUONEB)(J7620) NEB SCH ×4 (01:48→19:19)
[2017-01-29 04:00] VITALS: BP 147/66
[2017-01-29 04:51] LABS: BASO % 0.3 % (0.0-1.0); EOS # 0.1 K/mm3 (0.0-0.50); EOS % 0.9 % (0.0-3.0); LARGE UNSTAINED CELL # 0.3 K/mm3 (0.0-0.4); LARGE UNSTAINED CELL % 3.4 % (0.0-4.0); LYMPH # 1.3 K/mm3 (1.5-4.5); LYMPH % 15.6 % (24.0-44.0); MEAN CORPUSCULAR HEMOGLOBIN 30.4 pg (27.0-33.0); MEAN CORPUSCULAR HGB CONC 32.5 g/dl (32.0-36.5); MEAN CORPUSCULAR VOLUME 93.5 fl (80.0-96.0); MONO # 0.5 K/mm3 (0.0-0.8); MONO % 5.5 % (0.0-5.0); NEUTROPHILS # 6.2 K/mm3 (1.8-7.7); NEUTROPHILS % 74.3 % (36.0-66.0); PLATELET COUNT, AUTOMATED 246 k/mm3 (150-450); RED CELL DISTRIBUTION WIDTH 13.4 % (11.5-14.5); WHITE BLOOD COUNT 8.3 K/mm3 (4.0-10.0)
[2017-01-29 05:08] LABS: ALBUMIN 2.8 GM/DL (3.2-5.2); ALBUMIN/GLOBULIN RATIO 0.93 (1.00-1.93); BILIRUBIN,TOTAL 0.2 MG/DL (0.2-1.0); CALCIUM LEVEL 9.8 MG/DL (8.8-10.2); CREATININE FOR GFR 1.88 MG/DL (0.55-1.02); GLOMERULAR FILTRATION RATE 27.6 (>39); POTASSIUM SERUM 3.7 MEQ/L (3.5-5.1); TOTAL PROTEIN 5.8 GM/DL (6.4-8.2)
[2017-01-29 07:44] VITALS: BP 139/65
--- NOTE | 2017-01-29 08:03 | ECGEPIP ---
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
[2017-01-29] MEDS: FLUTICASONE PROP 0.05% NASAL SPRAY 16 GM (FLONASE) SCH ×2 (08:12→21:09)
[2017-01-29] MEDS: NYSTATIN 500,000 U/5 ML SUSP UDC SS SCH ×4 (08:13→21:09)
[2017-01-29] MEDS: GABAPENTIN 300 MG CAP PO SCH ×3 (08:13→21:09)
[2017-01-29] MEDS: FLUoxetine 20 MG CAP PO SCH (08:13)
[2017-01-29] MEDS: MULTIVITAMINS/MINERALS THERAP 1 TAB PO SCH (08:13)
[2017-01-29] MEDS: ASPIRIN 81 MG ENTERIC TAB PO SCH (08:13)
[2017-01-29] MEDS: PANTOPRAZOLE 40MG TAB (PROTONIX) PO SCH (08:13)
[2017-01-29] MEDS: oxyBUTYnin *DITROPAN XL* 5 MG TABCR PO SCH (08:14)
[2017-01-29] MEDS: predniSONE 10 MG TAB PO SCH (08:14)
[2017-01-29] MEDS: SUCRALFATE 1 GM TAB PO SCH ×3 (08:14→16:52)
[2017-01-29] MEDS: NS 1,000 ML IV SCH ×3 (08:14→22:08)
[2017-01-29] MEDS: TIOTROPIUM INHALER/CAPSULE (SPIRIVA) INH SCH (08:35)
[2017-01-29] MEDS: ADVAIR HFA 115/21MCG INHALER INH SCH ×2 (08:36→19:19)
[2017-01-29] MEDS: MAGNESIUM OXIDE 400 MG TAB (MAG-OX) PO SCH (12:44)
[2017-01-29 12:57] VITALS: BP 161/73
--- NOTE | 2017-01-29 13:10 | IPNPDOC ---
Text Note Date of Service The patient was seen on 01/29/17. NOTE Subjective: Patient is 76 year old female with a PMHx of HTN, Diastolic CHF, DLP, COPD on 3L O2, PE/DVT s/p IVC Filter, CKD3, Hx of Breast CA (03/2009, s/p b/l mastectomy and chemotherapy), Anxiety / Depression / Insomnia, Hx of GI bleed, and GERD who presented to the ER with complaints of multiples falls over the last 24 hours. She was evaluate in the ER in the past, but was sent home. She is back again and noted that her legs gave out under her. She has begun to use a walker / wheelchair at home. Patient was seen and examined at the bedside. She denied any problems overnight. She notes some shortness of breath, but reports that she is always SOB. Denies cough or chest pain. Objective: Vitals (See below) General: Lying in bed, no acute distress, comfortable, AAOx3 HEENT: NC, AT CVS: RRR, +S1S2 Lungs: Fair air entry b/l, no appreciable wheezing / rales / rhonchi Abdomen: Soft, ND, NT, +BSx4 Extremities: - Edema, - Calf tenderness Assessment and plan: 1. Unsteady gait / Multiple falls - possibly 2/2 generalized deconditioning / weakness, possibly 2/2 bradycardia, possibly 2/2 orthostatic hypotension - Presented with multiple falls over last 24 hours - Physical remains unrevealing - No acute fractures noted on imaging; will evaluate left knee - CT chest 01/28: Focal atelectasis, vs soft tissue nodule in the deep posterior sulcus of the right lung - c/w IV fluid hydration - c/w Physical therapy 2. Bradycardia - Reported to have some dizziness with ambulation that happens intermittently - Noted to be in sinus bradycardia at rate of upper 50s-60s - EKG with sinus bradycardia at 65 - Medication list reviewed - c/w PCU monitoring 3. Possible metastatic disease; lung mass on left lung field - Bone Scan 01/28: focus of increased uptake in proximal left femur, suspicious for metastatic lesion, healing fractures at left posterior ribs 01/20, possible arthritic change at left tibia / distal left femur - s/p CT Guided biopsy 01/28: pathology pending - Dr. Valentine (Pulmonary) following; appreciate their input 4. Hypercalcemia - likely 2/2 bone disease (metastatic disease), possibly paraneoplastic syndrome - Corrected calcium of 10.8 - Calcium has been trending down - Vitamin D, PTH and PTHrP remain pending - c/w IV fluid hydration 5. Elevation of Cr on CKD3 - Cr on admission of 1.80 - Cr baseline at 1.1-1.2 - Cr has show improvement - c/w gentle IV fluid hydration 6. Normocytic anemia - Hg stable - Hx of GI bleed in past - Will monitor Hg 7. HTN - c/w Amlodipine 8. Diastolic CHF - ECHO 07/2016: EF 65-70%, Grade 1 DD - Lasix on hold 9. DLP - c/w Simvastatin 10. COPD on 3L O2 - c/w Duoneb PRN, Blair and Spiriva 11. PE/DVT - s/p IVC Filter 12. Hx of Breast CA (03/2009, s/p b/l mastectomy and chemotherapy) 13. Anxiety / Depression / Insomnia - c/w Trazodone and Quetiapine 14. Overactive bladder - c/w Oxybutynin 15. Peripheral neuropathy - c/w Gabapentin 16. Chronic back pain - c/w Pain control from home 17. GERD - c/w Sucralfate and Protonix 18. DVT prophylaxis - c/w SCDs Code status: - DNR / DNI VS,Fishbone, I+O VS, Fishbone, I+O Laboratory Tests 01/29/17 04:32 Red Blood Count 3.46 L, Mean Corpuscular Volume 93.5, Mean Corpuscular Hemoglobin 30.4, Mean Corpuscular Hemoglobin Concent 32.5, Red Cell Distribution Width 13.4, Neutrophils (%) (Auto) 74.3 H, Lymphocytes (%) (Auto) 15.6 L, Monocytes (%) (Auto) 5.5 H, Eosinophils (%) (Auto) 0.9, Basophils (%) ( Auto) 0.3, Neutrophils # (Auto) 6.2, Lymphocytes # (Auto) 1.3 L, Monocytes # ( Auto) 0.5, Eosinophils # (Auto) 0.1, Basophils # (Auto) 0.0, Calcium Level 9.8, Aspartate Amino Transf (AST/SGOT) 9 L, Alanine Aminotransferase (ALT/SGPT) 18, Alkaline Phosphatase 52, Total Bilirubin 0.2, Total Protein 5.8 L, Albumin 2.8 L Vital Signs Date Time Temp Pulse Resp B/P (MAP) Pulse Ox O2 Delivery O2 Flow Rate FiO2 01/29/17 08:13 58 139/65 01/29/17 08:00 Nasal Cannula 3.0 01/29/17 07:44 97.8 18 95 I&O- Last 24 Hours up to 6 AM 01/29/17 06:00 Intake Total 1520 ml Output Total 550 ml Balance 970 ml LIZZETH STARK MD Jan 29, 2017 13:10
[2017-01-29] MEDS: ANEXSIA, NORCO 7.5MG/325MG TABLET(HYDROCODONE/APAP) PO PRN (13:13)
[2017-01-29 16:07] VITALS: BP 108/58
[2017-01-29] MEDS: traZODone 100 MG TAB PO SCH (21:09)
[2017-01-29] MEDS: SIMVASTATIN 10 MG TAB PO SCH (21:09)
[2017-01-30 00:23] VITALS: BP 158/67
[2017-01-30] MEDS: IPRATROPIUM 0.5MG/ALBUTEROL 2.5MG INH SOL UD 3ML (DUONEB)(J7620) NEB SCH ×2 (01:15→08:00)
[2017-01-30] MEDS: ANEXSIA, NORCO 7.5MG/325MG TABLET(HYDROCODONE/APAP) PO PRN (01:21)
[2017-01-30 04:42] LABS: BASO % 0.2 % (0.0-1.0); EOS # 0.1 K/mm3 (0.0-0.50); LARGE UNSTAINED CELL # 0.2 K/mm3 (0.0-0.4); LARGE UNSTAINED CELL % 2.7 % (0.0-4.0); LYMPH # 1.6 K/mm3 (1.5-4.5); LYMPH % 15.5 % (24.0-44.0); MEAN CORPUSCULAR HEMOGLOBIN 30.3 pg (27.0-33.0); MEAN CORPUSCULAR HGB CONC 32.6 g/dl (32.0-36.5); MEAN CORPUSCULAR VOLUME 92.9 fl (80.0-96.0); MONO # 0.5 K/mm3 (0.0-0.8); MONO % 6.2 % (0.0-5.0); NEUTROPHILS # 6.5 K/mm3 (1.8-7.7); NEUTROPHILS % 74.2 % (36.0-66.0); PLATELET COUNT, AUTOMATED 219 k/mm3 (150-450); RED CELL DISTRIBUTION WIDTH 13.7 % (11.5-14.5); WHITE BLOOD COUNT 8.7 K/mm3 (4.0-10.0)
[2017-01-30 05:02] LABS: ALBUMIN 2.6 GM/DL (3.2-5.2); BILIRUBIN,TOTAL 0.2 MG/DL (0.2-1.0); CALCIUM LEVEL 8.8 MG/DL (8.8-10.2); CREATININE FOR GFR 1.61 MG/DL (0.55-1.02); GLOMERULAR FILTRATION RATE 32.9 (>39); MAGNESIUM LEVEL 1.8 MG/DL (1.8-2.4); POTASSIUM SERUM 3.8 MEQ/L (3.5-5.1); TOTAL PROTEIN 5.2 GM/DL (6.4-8.2)
[2017-01-30] MEDS: TIOTROPIUM INHALER/CAPSULE (SPIRIVA) INH SCH (07:45)
[2017-01-30] MEDS: ADVAIR HFA 115/21MCG INHALER INH SCH (07:46)
[2017-01-30 08:04] VITALS: BP 139/73
[2017-01-30 08:06] VITALS: BP 152/71
[2017-01-30 08:07] VITALS: BP 154/75
[2017-01-30] MEDS: SUCRALFATE 1 GM TAB PO SCH (08:23)
[2017-01-30] MEDS: predniSONE 10 MG TAB PO SCH (08:25)
[2017-01-30] MEDS: FLUoxetine 20 MG CAP PO SCH (08:26)
[2017-01-30] MEDS: MULTIVITAMINS/MINERALS THERAP 1 TAB PO SCH (08:26)
[2017-01-30 08:27] VITALS: BP 154/75
[2017-01-30] MEDS: GABAPENTIN 300 MG CAP PO SCH (08:27)
[2017-01-30] MEDS: NYSTATIN 500,000 U/5 ML SUSP UDC SS SCH (08:27)
[2017-01-30] MEDS: ASPIRIN 81 MG ENTERIC TAB PO SCH (08:27)
[2017-01-30] MEDS: PANTOPRAZOLE 40MG TAB (PROTONIX) PO SCH (08:27)
[2017-01-30] MEDS: FLUTICASONE PROP 0.05% NASAL SPRAY 16 GM (FLONASE) SCH (08:28)
[2017-01-30] MEDS: oxyBUTYnin *DITROPAN XL* 5 MG TABCR PO SCH (08:28)
--- NOTE | 2017-01-30 19:33 | CR ---
DATE OF CONSULTATION: 01/28/2017 Ms. Delacruz is a 76-year-old female with past medical history of chronic obstructive pulmonary disease (COPD), oxygen dependent on 3 liters at home, congestive heart failure (CHF), a recent gastrointestinal (GI) bleed, who now presents for falling two times, one at night and one in the morning. The patient is a poor historian due to dementia and is unable to recall the events that led up to her falls, but states that she did not feel dizzy and instead she was feeling short of breath and having trouble breathing that led her to fall both times. She says she did not lose consciousness or hit her head anywhere. She states currently she is not feeling short of breath, having any cough or wheezing. She has been a long-time smoker for 50 years, recently quit about 5 years ago, smoked about one pack a day. Follows with Dr. Valentine in pulmonology, Dr. Curry in cardiology, and Dr. Lee, her primary care physician (PCP), all in outpatient settings. The patient has a history of pulmonary embolism (PE), but original imaging ruled out deep venous thrombosis (DVT), PE and any intracranial bleeds. A CT of cervical spine without contrast depicted a 1.6 cm radiolucent lesion in C6 vertebral body pointing towards a metastatic lesion. Pulmonology has been consulted due to suspicions that the primary cancer of this lesion may be attributable to possible lung cancer due to patient's longstanding smoking history and other risk factors. A whole body scan was also done which pointed towards a metastatic lesion in the proximal left femur which is also where the patient is complaining of more pain than her right side. The patient states she is feeling slightly better today than before and has no shortness of breath, wheezing, but admits to minor pain on the left side. The remaining of past medical history (PMH) is obtained from original history and physical (H and P) upon admission. REVIEW OF SYSTEMS: CONSTITUTIONAL: Denies fever, chills. No weight loss. HEENT: Denies headache, vision changes, dysphagia. PULMONARY: Admits to intermittent dyspnea and cough. Denies hemoptysis. On 3 liters oxygen at home. CARDIOVASCULAR: Denies palpitations, arrhythmias, and chest pain. GI: Denies nausea, vomiting, and any occult blood in stools. GENITOURINARY (): Denies dysuria or hematuria. NEUROLOGIC: Denies paresthesia and denies loss of consciousness. No seizure activity. ENDOCRINE: Admits to general malaise. Denies weight changes. PSYCHIATRIC: Admits to general anxiety and depression. SKIN: Denies any cuts or current bleeding. HEME/ONC: Admits easy bruising. No easy bleeding. No history of requiring a blood transfusion. PAST MEDICAL HISTORY: 1. Pulmonary embolism. 2. COPD. Steroid and oxygen dependent 3 liters nasal cannula at home. 3. Anxiety. 4. Depression. 5. CHF. 6. Gastroesophageal reflux disease (GERD). 7. History of GI bleed. 8. Shingles. 9. Chronic kidney disease. 10. Hyperlipidemia. 11. Insomnia. 12. History of breast cancer, HER2/rosita positive. FAMILY HISTORY: One brother and three sisters, breast cancer, lung cancer. Father , mother , diabetes and heart problems. ALLERGIES: AMOXICILLIN, LISINOPRIL, OXYCODONE, PENICILLIN, SULFA DRUGS, and TEMAZEPAM. SURGICAL HISTORY: Bilateral mastectomy, tubal ligation, ankle arthroplasty, left shoulder arthroplasty, left ankle arthroplasty, inferior vena cava (IVC) filter placement. SOCIAL HISTORY: Quit smoking 5 years ago, smoked one pack a day for about 50 years. Occasional alcohol use. Denies illicit drug use. Patient is DO NOT RESUSCITATE. Travels in the house with a walker and wheelchair. HOME MEDICATIONS: - Vicodin - Ventolin - amlodipine 2.5 mg - aspirin 81 mg - fluoxetine 20 mg - fluticasone propionate - furosemide 40 mg - gabapentin 300 mg - gabapentin 600 mg - magnesium oxide 400 mg - nitroglycerin - nystatin - oxybutynin 50 mg - Protonix 40 mg - prednisone 10 mg - quetiapine fumarate 50 mg - Advair - simvastatin 10 mg - sucralfate 1 gram - Spiriva - trazodone 100 mg OBJECTIVE: VITAL SIGNS: Temperature 97, pulse 69, respiratory rate 22, blood pressure 153/87, pulse oximetry 92% oxygen on 1 liter nasal cannula. GENERAL: Alert and oriented to self and location. Resting comfortably in bed. HEENT: Trachea midline. No supraclavicular adenopathy. Normocephalic, atraumatic. Pupils equal, round, reacting to light. Extraocular movements intact. Nasal septum midline. No sinus tenderness. CARDIOVASCULAR: Regular rate and rhythm. Normal S1, S2. RESPIRATORY: Bilateral expiratory wheezes diffusely, more appreciable in lower lobes. No accessory muscle use. On 3 liters nasal cannula. Slightly diminished airway entry. Increased anteroposterior (AP) diameter. Expiratory phase greater than inspiratory. No rales or rhonchi. ABDOMEN: Round, soft, nontender, nondistended, with positive bowel sounds. No guarding or rigidity. EXTREMITIES: 1+ pulses bilaterally dorsalis pedis. No edema, cyanosis, or clubbing noted. Tender to palpation in right lower extremity, patient attributes to fall. SKIN: [place], dry, warm. No visible rashes. LABORATORY DATA: White count 8.3, hemoglobin and hematocrit is 11 and 33.8, platelets 251. Sodium 145, potassium 4.2, chloride 101, CO2 36, BUN 22, creatinine 2.07, anion gap of 8, glucose 94, calcium 10.4, magnesium 1.5, total bilirubin 0.3, AST and ALT are 11 and 17, respectively, alkaline phosphatase 49, total creatine kinase 21, troponins are negative times three, total protein 5.4, albumin 2.8. PT and INR are 13 and 0.97, respectively. Urinalysis showed cloudy urine with positive leukocyte esterase, white blood cells, red blood cells, and urine bacteria. Urine culture pending. Blood culture pending. Noncontrast head CT showed no abnormality. Cervical spine CT showed spondylosis and 1.6 cm lesion in C6 vertebral body suspicious of cancerous lesion. Thoracic spine x-ray was negative of fractures, dislocations. CT of abdomen and pelvis was negative and without abnormalities. Hip x-ray depicted a new sclerotic lesion in intratrochanteric region of the proximal left femur and not able to exclude a metastatic lesion. A bone scan showed increased uptake in proximal left femur highly suspicious for metastatic lesion. Chest CT shows focal atelectasis versus soft tissue nodule in the posterior sulcus of the right lung that is a new finding. Atelectasis in superior segment of left lower lobe, borderline bronchiectasis, dilated ascending aorta. ASSESSMENT AND PLAN: 1. Abnormal CT with pulmonary nodule. Differential remains wide, there is suspicion of malignancy due to the findings of a cervical lesion on ct. The patient has dixie consented on CT guided biopsy in left lower lobe of lung. Appreciate interventional radiology's help to find the primary source of the C6 cervical spine lesions. 2. Chronic obstructive pulmonary disease (COPD). Continue steroids, 3 liters nasal cannula oxygen, Spiriva, Advair, and nebulizers. 3. Chronic pain. Continue gabapentin. 4. Anxiety and depression. Continue home medication. 5. Hyperlipidemia. Continue simvastatin, home medication. My preceptor for this patient encounter was Dr. Chester Valentine. The preceptor was physically present in the room during the encounter and was fully available. As needed, all aspects of the patient interview, examination, medical decision making process, and medical care plan development were reviewed and approved by the preceptor. The preceptor is aware and concurs with the plan as stated in the body of this note and will attest to such by her cosignature. I, Chester Valentine, agree with the above plan, it would be unlikely that the primary source of malignancy is the lung because of the size of the nodule however she has a smoking history and I believe it is reasonable to rule out lung cancer especially as there is no other lesion that would be obtainable based on bone scan. I conducted an independent history and physical. NIDHI
--- NOTE | 2017-01-30 20:31 | DSES ---
DATE OF ADMISSION: 01/27/2017 DATE OF DISCHARGE: 01/30/2017 ATTENDING PHYSICIAN: Dr. Paula Hammond DICTATED BY: Dr. Paula Hammond PRIMARY CARE PHYSICIAN: Dr. David Lee REFERRING PHYSICIAN: None. CONSULTING PHYSICIANS: Dr. Chester Valentine CONDITION ON DISCHARGE: Stable. FINAL DIAGNOSES: 1. Unsteady gait/multiple falls, possibly secondary generalized deconditioning, weakness, possibly secondary bradycardia, possibly secondary to orthostatic hypotension. 2. Bradycardia. 3. Possible metastatic disease, lung mass on left lung field. PROCEDURES: Patient had an interventional radiology (IR) guided biopsy of her left lung lesion on 01/28/2017. HISTORY OF PRESENT ILLNESS: Patient is a 76-year-old female with a past medical history of hypertension, diastolic congestive heart failure (CHF), dyslipidemia, chronic obstructive pulmonary disease (COPD) on 3 liters of oxygen, pulmonary embolism (PE)/deep venous thrombosis (DVT) status post inferior vena cava (IVC) filters, chronic kidney disease (CKD) stage III, history of breast cancer on 03/2009 status post bilateral mastectomy and chemotherapy, anxiety, depression and insomnia, history of gastrointestinal (GI) bleed and gastroesophageal reflux disease (GERD), who presented to the emergency room (ER) with complaints of multiple falls over the last 24 hours. She was evaluated in the ER in the past, but was sent home. She is back again and note that her legs have given out under her. She began to use a walker and wheelchair at home. HOSPITAL COURSE: 1. Unsteady gait/multiple falls. Likely secondary to deconditioning/weakness. Possibly secondary to bradycardia, possibly secondary to orthostatic hypotension. Presented with multiple falls within the last 24 hours. Physical remains unrevealing. No acute fractures were noted on imaging. CT chest on 01/28/2017 revealed focal atelectasis versus soft tissue nodule and a deep posterior sulcus of the right lung. Patient was put on intravenous (IV) fluid hydration and has been put on physical therapy. Patient has been cleared by physical therapy for discharge home to prior condition. 2. Bradycardia. Report has some dizziness with ambulation that has happened intermittently. Upon presentation, her bradycardia has been in the rate of upper 50s to the low 60s; however, upon discharge, patient's heart rate has been in the 70s. Medication list has been reviewed and no medication has been known to cause bradycardia. Patient was put on PC monitoring throughout the hospital course and has not had any events. 3. Possible metastatic disease. Lung mass in left lung field. Bone scan on 01/28/2017 reveals a focus of increased uptake in the proximal left femur suspicious for metastatic lesion, healing fractures of the left posterior ribs 8-10, possible arthritic change at the left tibia plus distal left femur. A CT scan of her chest revealed a possible lesion in the left lower lung field, which was biopsied on 01/28/2017. Pathology remains pending. Dr. Valentine was called on consultation. Patient will be following with her primary care provider and pulmonary within the next seven days for pathology results. 4. Hypercalcemia. Likely center of bone disease, metastatic in origin. Possibly paraneoplastic syndrome. Corrected calcium has been trending down through the hospital course. Calcium has improved. Upon discharge, vitamin D and parathyroid hormone related peptide remain pending. The patient was advised to continue with the increased oral intake of fluids. Patient's Lasix was kept on hold. 5. Elevation of creatinine on chronic kidney disease (CKD) stage III. Creatinine on admission of 1.80. Creatinine baseline of 1.1 to 1.2. Creatinine has shown improvement. Continue with gentle IV fluid hydration. 6. Blood loss anemia. Hemoglobin is stable. History of gastrointestinal (GI) bleed in the past. Hemoglobin has continued to be monitored and there is no report of bleeding currently. 7. Hypertension. Continue with amlodipine. 8. Diastolic congestive heart failure (CHF). Echocardiogram in July 2016 revealed ejection fraction of 65-70%, grade 1 diastolic dysfunction. Lasix was kept on hold. 9. Dyslipidemia. Continue with Zocor. 10. Chronic obstructive pulmonary disease (COPD). On 3 liters of oxygen at home. Continue with DuoNeb as needed. Advair and Spiriva. 11. Deep venous thrombosis (DVT)/pulmonary embolism (PE) history. Status post inferior vena cava (IVC) filter. 12. History of breast cancer. Diagnosed in 03/2009. Bilateral mastectomy and chemotherapy. 13. Anxiety/depression/insomnia. Continue the trazodone and quetiapine. 14. Overactive bladder. Continue oxybutynin. 15. Peripheral neuropathy. Continue with gabapentin. 16. Chronic back pain. Continue with pain control from home. 17. Gastroesophageal reflux disease (GERD). Continue with sucralfate and Protonix. 18. Deep venous thrombosis (DVT) prophylaxis. Continue with sequential compression devices. PATIENT WAS DISCHARGED HOME ON THE FOLLOWING MEDICATION LIST: - [place] 7.5/325 one tablet by mouth four times a day as needed for pain - albuterol two puffs inhaled every 4 hours as needed for shortness of breath - amlodipine 2.5 mg by mouth daily - aspirin 81 mg by mouth daily - calcium 500 one tablet by mouth twice a day - fluoxetine 60 mg by mouth daily - fluticasone two sprays in each nostril twice a day - gabapentin 300 mg by mouth twice a day - gabapentin 600 mg by mouth at bedtime - magnesium oxide 4 mg by mouth daily - multivitamin one tablet by mouth daily - nitroglycerine 0.4 mg to be taken as directed - nystatin 5 mL swish and swallow four times a day to be taken as directed - oxybutynin 50 mg by mouth daily - Protonix 40 mg by mouth daily - prednisone 10 mg daily - quetiapine 50 mg by mouth at bedtime - Advair Diskus 250/50 one puff inhaled twice a day - Simvastatin 10 mg by mouth at bedtime - sucralfate 1 gram by mouth before meals - Spiriva one inhalation daily - trazodone 100 mg by mouth at bedtime - triamcinolone to be taken as directed topically for itching STOP MEDICATIONS: Include: - furosemide 40 mg daily DISCHARGE INSTRUCTIONS: Patient has been advised to follow up with her primary care provider and pulmonary, Dr. Valentine, within the next seven days. She has been advised to remain compliant with treatment plan and medications and return to the emergency room if she experiences any problems. Patient was invited to follow up with her primary care provider and Dr. Valentine for follow up of her pathology results/ TIME SPENT ON DISCHARGE: Greater than 35 minutes.
== END 2017-01-30 11:00 | disposition home or self-care (01) | DRG 92 ==
LOC: M ED 10:36 → M ED INP 15:36 → M ICU 01-28 03:28
PROVIDERS: ADMIT Internal Medicine; ATTEND Internal Medicine
PROC: 0BBJ3ZX Excision of Left Lower Lung Lobe, Percutaneous Approach, Diagnostic (ICD-10-PCS; principal; 2017-01-28)
DX: R29.6 Repeated falls (principal); I50.32 Chronic diastolic (congestive) heart failure; I13.0 Hypertensive heart and chronic kidney disease with heart failure and stage 1 through stage 4 chronic kidney disease, or unspecified chronic kidney disease; C79.51 Secondary malignant neoplasm of bone; J95.811 Postprocedural pneumothorax; M25.552 Pain in left hip; R00.1 Bradycardia, unspecified; R19.7 Diarrhea, unspecified; N18.3 Chronic kidney disease, stage 3 (moderate); J44.9 Chronic obstructive pulmonary disease, unspecified; R91.8 Other nonspecific abnormal finding of lung field; I95.1 Orthostatic hypotension; E78.5 Hyperlipidemia, unspecified; G47.00 Insomnia, unspecified; F32.9 Major depressive disorder, single episode, unspecified; K21.9 Gastro-esophageal reflux disease without esophagitis; Z86.711 Personal history of pulmonary embolism; Z86.718 Personal history of other venous thrombosis and embolism; Z85.3 Personal history of malignant neoplasm of breast; D50.0 Iron deficiency anemia secondary to blood loss (chronic); G62.9 Polyneuropathy, unspecified; N32.81 Overactive bladder; M54.5 Low back pain; Z79.899 Other long term (current) drug therapy; Z79.82 Long term (current) use of aspirin; M54.2 Cervicalgia; Z79.52 Long term (current) use of systemic steroids; Z99.81 Dependence on supplemental oxygen; Z90.11 Acquired absence of right breast and nipple; Z90.12 Acquired absence of left breast and nipple; Z87.891 Personal history of nicotine dependence; Z88.0 Allergy status to penicillin; Z88.5 Allergy status to narcotic agent; Z88.8 Allergy status to other drugs, medicaments and biological substances; Z88.2 Allergy status to sulfonamides; G89.29 Other chronic pain; F03.90 Unspecified dementia, unspecified severity, without behavioral disturbance, psychotic disturbance, mood disturbance, and anxiety

== ENCOUNTER → 2017-02-16 | Outpatient (REF) | payer MEDICARE, MEDICAID ==
[~2017-02-16] MED LIST changes: +FISH120012 PO; +MAGN250T3 PO
[2017-02-16 14:19] LABS: INR 0.9
== END ==
LOC: M LAB REF 13:21
PROVIDERS: ATTEND Internal Medicine Medical Oncology
DX: C50.919 Malignant neoplasm of unspecified site of unspecified female breast (principal)

== ENCOUNTER 2017-03-01 20:34 | Observation (INO) | payer MEDICARE, MEDICAID ==
[~2017-03-01] VITALS: Ht 157.5 cm; Wt 81.1 kg
[~2017-03-01 20:34] MED LIST changes: -FISH120012 PO; -MAGN250T3 PO
[2017-03-01] MEDS ORDERED: OXYB10TA PO (21:04)
[2017-03-01] MEDS ORDERED: dexameTHASONE 20 MG/5 ML VIAL (J1100) IV ONE (22:15)
[2017-03-01 22:26] LABS: BASO % 0.2 % (0.0-1.0); EOS % 0.6 % (0.0-3.0); LARGE UNSTAINED CELL # 0.3 K/mm3 (0.0-0.4); LARGE UNSTAINED CELL % 3.4 % (0.0-4.0); LYMPH # 1.4 K/mm3 (1.5-4.5); LYMPH % 16.7 % (24.0-44.0); MEAN CORPUSCULAR HEMOGLOBIN 29.8 pg (27.0-33.0); MEAN CORPUSCULAR HGB CONC 32.9 g/dl (32.0-36.5); MEAN CORPUSCULAR VOLUME 90.8 fl (80.0-96.0); MONO # 0.4 K/mm3 (0.0-0.8); MONO % 4.4 % (0.0-5.0); NEUTROPHILS # 6.2 K/mm3 (1.8-7.7); NEUTROPHILS % 74.8 % (36.0-66.0); PLATELET COUNT, AUTOMATED 214 k/mm3 (150-450); RED CELL DISTRIBUTION WIDTH 13.7 % (11.5-14.5); WHITE BLOOD COUNT 8.2 K/mm3 (4.0-10.0)
[2017-03-01 22:31] LABS: CALCIUM LEVEL 10.3 MG/DL (8.8-10.2); CREATININE FOR GFR 1.45 MG/DL (0.55-1.02); GLOMERULAR FILTRATION RATE 37.2 (>39); POTASSIUM SERUM 4.7 MEQ/L (3.5-5.1)
[2017-03-01 22:39] LABS: VENOUS BASE EXCESS 6.9 (-2.0-2.0); VENOUS PARTIAL PRESSURE CO2 45.4 mmHg (38.0-50.0); VENOUS PARTIAL PRESSURE O2 149.4 mmHg (30.0-50.0); VENOUS STANDARD HCO3 30.8 MEQ/L
[2017-03-01] MEDS: ALBUTEROL SULFATE 2.5 MG/0.5 ML INH NEB SOLN INH SCH ×2 (22:41→22:42)
[2017-03-02] MEDS ORDERED: ONDANSETRON 4MG/2ML VIAL (J2405) IV PRN
[2017-03-02] MEDS ORDERED: BISACODYL 10 MG SUPP PR PRN
[2017-03-02] MEDS ORDERED: ALBUTEROL SULFATE 2.5 MG/0.5 ML INH NEB SOLN NEB PRN (00:15)
[2017-03-02] MEDS ORDERED: CALCTAB68 PO (00:22)
[2017-03-02] MEDS ORDERED: GABA600T PO (00:22)
[2017-03-02] MEDS ORDERED: MAGN250T3 PO (00:22)
[2017-03-02] MEDS ORDERED: SIMV10TA2 PO (00:22)
[2017-03-02] MEDS ORDERED: FISH120012 PO (00:22)
[2017-03-02] MEDS: IPRATROPIUM 0.5MG/ALBUTEROL 2.5MG INH SOL UD 3ML (DUONEB)(J7620) NEB SCH ×4 (02:00→20:00)
[2017-03-02 02:42] VITALS: BP 180/94
[2017-03-02] MEDS ORDERED: SLF 3 ML SYR IV PRN (03:15)
[2017-03-02 04:00] VITALS: BP 142/68
[2017-03-02] MEDS: SLF 3 ML SYR IV SCH ×3 (05:29→21:27)
[2017-03-02 05:53] LABS: BASO % 0.1 % (0.0-1.0); EOS % 0.1 % (0.0-3.0); LARGE UNSTAINED CELL # 0.1 K/mm3 (0.0-0.4); LARGE UNSTAINED CELL % 0.5 % (0.0-4.0); LYMPH # 0.6 K/mm3 (1.5-4.5); LYMPH % 6.7 % (24.0-44.0); MEAN CORPUSCULAR HEMOGLOBIN 29.9 pg (27.0-33.0); MEAN CORPUSCULAR VOLUME 90.7 fl (80.0-96.0); MONO # 0.3 K/mm3 (0.0-0.8); NEUTROPHILS # 8.6 K/mm3 (1.8-7.7); NEUTROPHILS % 89.5 % (36.0-66.0); PLATELET COUNT, AUTOMATED 218 k/mm3 (150-450); RED CELL DISTRIBUTION WIDTH 13.6 % (11.5-14.5); WHITE BLOOD COUNT 9.6 K/mm3 (4.0-10.0)
--- NOTE | 2017-03-02 05:57 | HPE ---
DATE OF ADMISSION: 03/01/2017 PRIMARY CARE PROVIDER: Dr. Juvenal Garrett INSURANCE ACCOUNT REPRESENTATIVE: Dr. Valentine. ONCOLOGIST: Dr. Leung. CHIEF COMPLAINT: 1. Increased shortness of breath for the past two days. 2. Increased somnolence, weakness and lethargy for one day. PAST MEDICAL HISTORY: 1. Bilateral breast cancer, status post bilateral mastectomy and chemotherapy in the past. 2. Metastatic lesion in the proximal left femur, possible source from breast cancer, being evaluated. 3. Chronic pulmonary obstructive disease (COPD). 4. Hypoxic respiratory failure on 2 liters of oxygen. 5. Dementia. 6. Hypertension. 7. Grade I diastolic dysfunction. 8. Gout. 9. Gastrointestinal reflux disease (GERD). 10. Collagenous colitis. 11. Basal cell cancer of the nose. 12. Bradycardia. 13. Generalized deconditioning and history of gait abnormality and multiple falls. 14. Lung nodule biopsy negative for malignancy. 15. History of pulmonary embolism and deep venous thrombosis (DVT) status post inferior vena cava (IVC) filter. 16. Chronic kidney disease (CKD) stage III. 17. Anxiety, depression and insomnia. 18. Dyslipidemia. 19. Peripheral neuropathy. 20. Chronic back pain. HISTORY OF PRESENT ILLNESS: This is a 76-year-old female with multiple medical problems as stated above who presented to the emergency room with increasing shortness of breath for the past two days as per doctor. The patient felt that it was hot, humid weather that worsened her breathing and she felt like she could not take a deep breath. This morning the patient's daughter noted her to be extremely somnolent and weak. She was falling asleep while talking and she required more than usual support to get her out of bed and to get her to the bathroom. Throughout the day she continued to be extremely somnolent. When her blood pressure was checked at home they also noted a low pulse rate of 45. They rechecked it again with pulse oximeter which also read a pulse of 45 so the patient was brought to the emergency room for evaluation. In the emergency department (ED) the patient was found to have mild wheezing and increased work at breathing. The patient was also noticed to be somnolent and also bradycardic to 42. An EKG was done which showed sinus bradycardia with a QTc of 416. The patient had venous blood test drawn which did not show any CO2 retention. The patient was given a large dose of intravenous (IV) Decadron, as well as nebulizer; however, the patient continued to complain of shortness of breath so the patient was admitted to the hospital under the hospitalist service for COPD exacerbation and bradycardia with somnolence. PAST SURGICAL HISTORY: 1. Bilateral mastectomy. 2. Tubal ligation. 3. Left ankle arthroplasty. 4. Left shoulder arthroplasty. 5. IVC placement. SOCIAL HISTORY: The patient lives with her daughter. She quit smoking five years ago. Occasional alcohol use. Denies any recreational drug use. FAMILY HISTORY: One brother and three sisters with history of breast cancer and lung cancer in the family. ALLERGIES: AMOXICILLIN, LISINOPRIL, OXYCODONE, PENICILLIN, SULFA DRUGS and TEMAZEPAM. REVIEW OF SYSTEMS: All 10-point review of systems are negative except as mentioned in the history of present illness (HPI). The patient denies any fever or chills. She denied any increased cough from baseline. Denied any abdominal pain, nausea, vomiting or diarrhea. Denied any chest pain. She does have some increased shortness of breath. PHYSICAL EXAMINATION: VITAL SIGNS: Temperature 97.5, pulse 44, blood pressure 170/72, pulse oximetry 96% on room air, respiratory rate 16. GENERAL: The patient is somnolent but easily arousable; however, she is falling asleep during the interview. HEENT: Normocephalic atraumatic. Moist mucous membranes. Anicteric eyes. CHEST: Mild wheezing present on the right posterior aspect; otherwise clear to auscultation. CARDIOVASCULAR: S1, S2, regular, bradycardia. No murmurs, rubs, gallops. ABDOMEN: Obese, soft, nontender. Bowel sounds present. EXTREMITIES: No edema. LABORATORY DATA: WBC 8.2, hemoglobin 9.9, platelets 214. Sodium 142, potassium 4.7, chloride 101, bicarbonate 33, BUN 21, creatinine 1.45, glucose 143, calcium 10.3. Cardiac enzymes are negative. A venous blood gas shows pH of 7.46, PCO2 45, PO2 149. ASSESSMENT AND PLAN: This is a 76-year-old female admitted for chronic pulmonary obstructive disease (COPD) exacerbation, bradycardia and increasing somnolence. PLAN: 1. COPD exacerbation. Will continue the patient on nebulizers. Will continue oxygen via nasal cannula. Will continue with prednisone by mouth. Will increase her from 10 mg to 30 mg daily. Will continue with albuterol and ipratropium nebulizers, continue with Advair inhaler and Spiriva inhaler. 2. Bradycardia. EKG shows sinus bradycardia, will monitor in the progressive care unit (PCU). Could be related to multiple medications. Will decrease the dose of gabapentin, decrease the dose of trazodone. Will hold opiates. 3. Toxic metabolic encephalopathy. The patient is excessively somnolent which is a change from her baseline, most probably medication related . The patient does not have any CO2 retention. Will decrease the dose of gabapentin , will decrease the dose of trazodone from 100 to 50. Will hold hydrocodone. 4. Chronic back pain. Will continue the patient on Tylenol as needed for pain. 5. Hypertension. Will continue with amlodipine. 6. Hyperlipidemia. Will continue with simvastatin. 7. History of gastrointestinal reflux disease (GERD) and gastrointestinal (GI) bleeding. Will continue with pantoprazole and sucralfate. 8. Anxiety, depression and insomnia. At the present the patient is very somnolent so will decrease the dose of trazodone and gabapentin; however will continue fluoxetine in the morning. 9. History of pulmonary embolism and deep venous thrombosis (DVT). The patient has an inferior vena cava (IVC) filter in place. 10. Vascular congestive heart failure. At present the patient seems to be euvolemic. 11. Hypercalcemia. Possibly due to bone disease, metastatic in origin. Will continue to monitor. 12. Bilateral breast cancer with metastases. The patient diagnosed with breast cancer in 2008. She had chemotherapy and bilateral mastectomy; however , recently found to have a metastatic lesion in the left proximal femur. She has been scheduled for outpatient PET scan by Dr. Leung which is still pending. 13. Chronic kidney disease (CKD) stage III. The patient is currently at baseline. Will continue to monitor. 14. Peripheral neuropathy. Will continue with lower dose gabapentin. 15. Deep venous thrombosis (DVT) prophylaxis has been ordered. 16. Chronic respiratory failure with hypoxia : with continue with oxygen supplementation. MTDD
[2017-03-02 06:04] LABS: CALCIUM LEVEL 10.3 MG/DL (8.8-10.2); CREATININE FOR GFR 1.44 MG/DL (0.55-1.02); GLOMERULAR FILTRATION RATE 37.5 (>39); POTASSIUM SERUM 4.8 MEQ/L (3.5-5.1)
--- NOTE | 2017-03-02 06:13 | ECGEPIP ---
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
[2017-03-02] MEDS: SUCRALFATE 1 GM TAB PO SCH ×3 (07:38→16:57)
--- NOTE | 2017-03-02 07:44 | REP ---
Portable chest, 10:18 p.m., single AP view, the patient upright: Comparison is a 2016. There is minor discoid atelectasis inferiorly in the left lung. The remainder the lung crump are clear. Cardiac size is normal. The eugene, mediastinum, and bony thorax are unchanged. There is a left shoulder arthroplasty, unchanged. Impression: Minor discoid atelectasis inferiorly in the left lung. Surgical eugenia are again noted in the left axilla. Signed by Juvenal Dorantes MD 03/02/2017 07:35 A
[2017-03-02 08:00] VITALS: BP 157/83
[2017-03-02] MEDS: ADVAIR HFA 115/21MCG INHALER INH SCH ×2 (08:03→21:13)
[2017-03-02] MEDS: TIOTROPIUM INHALER/CAPSULE (SPIRIVA) INH SCH (08:03)
--- NOTE | 2017-03-02 08:11 | IPN ---
DATE: 03/02/2018 Ms. Delacruz is feeling better today. She was confused last night, she does not know why. She is not short of breath. She shares with me her diagnosis of metastatic breast cancer and says that she would accept any treatments that were guaranteed to give her four more years of life. PHYSICAL EXAMINATION: VITAL SIGNS: Temperature is 98.5, pulse 58, respiratory rate 18, blood pressure 142/68, 93% on 2 liters. Input and output notable for a negative fluid balance of -600. Awake and appropriate interactive. Pleasantly conversant. Breathing is symmetrical. I:E ratio is 1:4. Symmetrical aeration. No wheezes, rales or rhonchi. Some upper airway sounds are noted. Abdomen is soft, doughy, nontender. Heart is distant sounding. White cell count 9.6, hemoglobin 10.6, and platelets of 218. BUN 19, creatinine 1.14. ASSESSMENT: This is a 76-year-old admitted for chronic obstructive pulmonary disease (COPD) exacerbation, bradycardia, metabolic encephalopathy in the setting of metastatic breast cancer. Plan was for a PET scan today as an outpatient, which obviously will not happen. PLAN: 1. COPD exacerbation. The patient is improved. She is on increased dose of prednisone. Continue with respiratory therapy and monitor clinically. 2. The patient has bradycardia noted. She was in sinus bradycardia on the monitor, which has resolved at this point. This may be related to medication side effects. We will monitor clinically. 3. The patient has metabolic encephalopathy, most likely related to medication side effects and difficulty breathing. Seems to be improved. Again, we will monitor clinically. 4. The patient has hypertension. 5. The patient has hyperlipidemia. 6. The patient has gastroesophageal reflux disease (GERD). 7. The patient has anxiety and depression. 8. The patient has a history of pulmonary embolism, deep vein thrombosis (DVT) with IVC in place. 9. The patient has history of congestive heart failure. 10. The patient has hypercalcemia with calcium of 10.3. This is likely related to her metabolic encephalopathy. 11. The patient has chronic kidney disease stage III.
[2017-03-02] MEDS: ENOXAPARIN 30 MG/0.3 ML SYR (J1650) SC SCH (08:24)
[2017-03-02] MEDS: PANTOPRAZOLE 40MG TAB (PROTONIX) PO SCH (08:25)
[2017-03-02] MEDS: GABAPENTIN 100 MG CAP PO SCH ×3 (08:25→21:25)
[2017-03-02] MEDS: ASPIRIN 81 MG ENTERIC TAB PO SCH (08:25)
[2017-03-02] MEDS: oxyBUTYnin *DITROPAN XL* 5 MG TABCR PO SCH (08:25)
[2017-03-02] MEDS: FLUoxetine 20 MG CAP PO SCH (08:25)
[2017-03-02] MEDS: SENOKOT S TAB PO SCH ×2 (08:27→21:00)
[2017-03-02] MEDS: predniSONE 10 MG TAB PO SCH (08:29)
[2017-03-02] MEDS ORDERED: predniSONE 10 MG TAB PO SCH (09:00)
[2017-03-02] MEDS ORDERED: ENOXAPARIN 40 MG/0.4 ML SYRINGE (J1650) SC SCH (09:00)
[2017-03-02] MEDS: ANEXSIA, NORCO 7.5MG/325MG TABLET(HYDROCODONE/APAP) PO PRN ×3 (10:27→18:25)
[2017-03-02 12:00] VITALS: BP 138/72
[2017-03-02 16:00] VITALS: BP 127/78
[2017-03-02 20:00] VITALS: BP 146/63
[2017-03-02] MEDS ORDERED: traZODone 50 MG TAB PO SCH (21:00)
[2017-03-02] MEDS ORDERED: SIMVASTATIN 10 MG TAB PO SCH (21:00)
[2017-03-03] VITALS: BP 119/56
[2017-03-03] MEDS: IPRATROPIUM 0.5MG/ALBUTEROL 2.5MG INH SOL UD 3ML (DUONEB)(J7620) NEB SCH ×3 (02:00→13:35)
[2017-03-03 04:00] VITALS: BP 157/70
[2017-03-03 05:28] LABS: BASO % 0.1 % (0.0-1.0); LARGE UNSTAINED CELL # 0.5 K/mm3 (0.0-0.4); LARGE UNSTAINED CELL % 3.2 % (0.0-4.0); LYMPH # 1.4 K/mm3 (1.5-4.5); LYMPH % 9.2 % (24.0-44.0); MEAN CORPUSCULAR HEMOGLOBIN 30.3 pg (27.0-33.0); MEAN CORPUSCULAR HGB CONC 33.3 g/dl (32.0-36.5); MONO # 0.6 K/mm3 (0.0-0.8); MONO % 4.1 % (0.0-5.0); NEUTROPHILS # 13.1 K/mm3 (1.8-7.7); NEUTROPHILS % 83.4 % (36.0-66.0); PLATELET COUNT, AUTOMATED 247 k/mm3 (150-450); RED CELL DISTRIBUTION WIDTH 13.8 % (11.5-14.5); WHITE BLOOD COUNT 15.6 K/mm3 (4.0-10.0)
[2017-03-03 05:45] LABS: CALCIUM LEVEL 9.9 MG/DL (8.8-10.2); CREATININE FOR GFR 1.68 MG/DL (0.55-1.02); GLOMERULAR FILTRATION RATE 31.4 (>39); POTASSIUM SERUM 4.6 MEQ/L (3.5-5.1)
[2017-03-03] MEDS: SLF 3 ML SYR IV SCH (06:00)
[2017-03-03] MEDS: ADVAIR HFA 115/21MCG INHALER INH SCH (07:29)
[2017-03-03] MEDS: TIOTROPIUM INHALER/CAPSULE (SPIRIVA) INH SCH (07:29)
[2017-03-03] MEDS: oxyBUTYnin *DITROPAN XL* 5 MG TABCR PO SCH (07:37)
[2017-03-03] MEDS: ASPIRIN 81 MG ENTERIC TAB PO SCH (07:37)
[2017-03-03 07:38] VITALS: BP 132/74
[2017-03-03] MEDS: predniSONE 10 MG TAB PO SCH (07:38)
[2017-03-03] MEDS: PANTOPRAZOLE 40MG TAB (PROTONIX) PO SCH (07:38)
[2017-03-03] MEDS: SUCRALFATE 1 GM TAB PO SCH ×2 (07:38→12:04)
[2017-03-03] MEDS: GABAPENTIN 100 MG CAP PO SCH (07:38)
[2017-03-03] MEDS: SENOKOT S TAB PO SCH (07:39)
[2017-03-03] MEDS: FLUoxetine 20 MG CAP PO SCH (07:39)
[2017-03-03] MEDS: ENOXAPARIN 30 MG/0.3 ML SYR (J1650) SC SCH (07:39)
[2017-03-03] MEDS: ANEXSIA, NORCO 7.5MG/325MG TABLET(HYDROCODONE/APAP) PO PRN ×2 (07:40→12:05)
[2017-03-03 07:55] VITALS: BP 159/76
[2017-03-03] MEDS ORDERED: PRED10TA2 PO (11:02)
--- NOTE | 2017-03-03 11:10 | DS.PDOC ---
Discharge Summary General Date of Admission Mar 01, 2017 at 23:51 Date of Discharge 03/03/17 Discharge Summary PROCEDURES PERFORMED DURING STAY: [None]. DISCHARGE DIAGNOSES: 1. COPD exacerbation Secondary Diagnoses: 1. Bilateral breast cancer, status post bilateral mastectomy and chemotherapy in the past. 2. Metastatic lesion in the proximal left femur, possible source from breast cancer, being evaluated. 3. Chronic pulmonary obstructive disease (COPD). 4. Chronic hypoxic respiratory failure on 2 liters of oxygen. 5. Dementia. 6. Hypertension. 7. Grade I diastolic dysfunction. 8. Gout. 9. Gastrointestinal reflux disease (GERD). 10. Collagenous colitis. 11. Basal cell cancer of the nose. 12. Bradycardia. 13. Generalized deconditioning and history of gait abnormality and multiple falls. 14. Lung nodule biopsy negative for malignancy. 15. History of pulmonary embolism and deep venous thrombosis (DVT) status post inferior vena cava (IVC) filter. 16. Chronic kidney disease (CKD) stage III. 17. Anxiety, depression and insomnia. 18. Dyslipidemia. 19. Peripheral neuropathy. 20. Chronic back pain. COMPLICATIONS/CHIEF COMPLAINT: Bradycardia,Copd With Acute Exacerbation. HISTORY OF PRESENT ILLNESS: 76-year old female admitted for worsening shortness of breath, lethargy, somnolence and weakness. On admission found to be bradycardic at 42bpm with prolonged QTc 416. HOSPITAL COURSE: Patient admitted for shortness of breath secondary to COPD exacerbation, with known history of bradycardia. Patient responded well to treatments including respiratory treatments and steroid therapy. Patient returned to baseline relatively quickly, with resolution of her symptoms. Patient subsequently discharged home with outpatient follow up. DISCHARGE MEDICATIONS: Please see below. ALLERGIES: Please see below. PHYSICAL EXAMINATION ON DISCHARGE: VITAL SIGNS: Please see below. GENERAL: NAD HEENT: NC/AT, EOMI NECK: supple CARDIOVASCULAR EXAMINATION: +S1S2, RRR RESPIRATORY EXAMINATION: diminished breath sounds b/l, mild expiratory wheezes B /L ABDOMINAL EXAMINATION: soft, NT, +BS PSYCHIATRIC EXAMINATION: AAOx3 LABORATORY DATA: Please see below. ACTIVITY: [As tolerated]. DIET: COPD, 2 gram sodium DISCHARGE INSTRUCTIONS: 1. Follow up PCP in 3-5 days DISCHARGE CONDITION: [Stable]. TIME SPENT ON DISCHARGE: Greater than 30 minutes. Vital Signs/I&Os Vital Signs Date Time Temp Pulse Resp B/P (MAP) Pulse Ox O2 Delivery O2 Flow Rate FiO2 03/03/17 08:10 18 03/03/17 07:55 97.9 63 159/76 (103) 92 Nasal Cannula 2.0 Laboratory Data Labs 24H Laboratory Tests 2 03/03/17 05:03: White Blood Count 15.6H, Red Blood Count 3.43L, Hemoglobin 10.4L, Hematocrit 31.2L, Mean Corpuscular Volume 91.0, Mean Corpuscular Hemoglobin 30.3, Mean Corpuscular Hemoglobin Concent 33.3, Red Cell Distribution Width 13.8, Platelet Count 247, Neutrophils (%) (Auto) 83.4H, Lymphocytes (%) (Auto) 9.2L, Monocytes (%) (Auto) 4.1, Eosinophils (%) (Auto) 0.0, Basophils (%) (Auto) 0.1, Neutrophils # (Auto) 13.1H, Lymphocytes # (Auto) 1.4L, Monocytes # (Auto) 0.6, Eosinophils # (Auto) 0.0, Basophils # (Auto) 0.0, Large Unclassified Cells % 3.2 , Large Unclassified Cells # 0.5H, Anion Gap 6L, Glomerular Filtration Rate 31.4L, Blood Urea Nitrogen 24H, Creatinine 1.68H, Sodium Level 143, Potassium Level 4.6, Chloride Level 103, Carbon Dioxide Level 34H, Calcium Level 9.9 CBC/BMP Laboratory Tests 03/03/17 05:03 Red Blood Count 3.43 L, Mean Corpuscular Volume 91.0, Mean Corpuscular Hemoglobin 30.3, Mean Corpuscular Hemoglobin Concent 33.3, Red Cell Distribution Width 13.8, Neutrophils (%) (Auto) 83.4 H, Lymphocytes (%) (Auto) 9.2 L, Monocytes (%) (Auto) 4.1, Eosinophils (%) (Auto) 0.0, Basophils (%) (Auto ) 0.1, Neutrophils # (Auto) 13.1 H, Lymphocytes # (Auto) 1.4 L, Monocytes # ( Auto) 0.6, Eosinophils # (Auto) 0.0, Basophils # (Auto) 0.0, Calcium Level 9.9 Microbiology Microbiology 03/01/17 Blood Culture - Preliminary, Resulted No growth after 24 hours . All specim... Discharge Medications Scheduled (Magnesium 250 mg) 1 Tab Tab, 1 TAB PO DAILY, (Reported) TAKES AT NOON Amlodipine Besylate (Amlodipine Besylate) 2.5 Mg Tab, 2.5 MG PO DAILY, (Reported ) Aspirin (Aspirin EC) 81 Mg Tabec, 81 MG PO DAILY, (Reported) Calcium/Vitamin D (Calcium 600 + D 600-400 mg-Unit) 1 Tab Tab, 1 TAB PO BID, ( Reported) Fish Oil (Fish Oil) 1,200 Mg Cap, 1,200 MG PO BID, (Reported) Fluoxetine Hcl (Fluoxetine HCl) 20 Mg Cap, 60 MG PO DAILY, (Reported) Fluticasone Propionate (Fluticasone Propionate 0.05%) 120 D[place]ios/16 Gm Naspr, 2 SPRAY NA BID, (Reported) PER NOSTRIL Gabapentin (Gabapentin) 600 Mg Tab, 600 MG PO QHS, (Reported) Gabapentin (Gabapentin) 600 Mg Tab, 300 MG PO ASDIRECTED, (Reported) TAKES EVERYDAY IN THE MORNING AND NOONTIME Multivitamins *[facility]OCK[facility]* (Thera M Plus *[facility]*) 1 Tab Tab, 1 TAB PO DAILY, (Reported) TAKES AT NOON Oxybutynin Chloride (Oxybutynin Chloride ER) 10 Mg Tab, 10 MG PO DAILY, ( Reported) Pantoprazole Sodium (Pantoprazole Sodium) 40 Mg Tab, 40 MG PO DAILY, (Reported) Prednisone (Prednisone) 10 Mg Tab, 10 MG PO TAPER Take 4 tabs daily x 3 days, then 3 tabs daily x 3 days, then 2 tabs daily x 3 days, then 1 tab daily x 3 days and stop Salmeterol/Fluticasone (Advair Diskus 250-50 Mcg/Dose) 14 Puff/Inhaler Aerp, 1 PUFF INH BID, (Reported) Simvastatin (Simvastatin) 10 Mg Tab, 10 MG PO QHS, (Reported) Sucralfate (Sucralfate) 1 Gm Tab, 1 GM PO AC, (Reported) Tiotropium [place] Monohydrate (Spiriva Handihaler) 18 Mcg Cap, 1 INHALATION INH DAILY, (Reported) Trazodone HCl (Trazodone HCl) 100 Mg Tab, 200 MG PO QHS, (Reported) Scheduled PRN Acetaminophen/Hydrocodone ([place] 7.5-325 mg) 1 Tab Tab, 1 TAB PO QID PRN for PAIN, (Reported) Albuterol Sulfate (Ventolin Hfa) 200 Puff/8 Gm Aers, 2 PUFF INH Q4H PRN for SHORTNESS OF BREATH, (Reported) Albuterol/Ipratropium (Ipratropium [place]/Albut 0.5-2.5 (3) mg/3Ml) 1 Alek Alek, 1 ALEK INH Q4H PRN for SHORTNESS OF BREATH, (Reported) Nitroglycerin (Nitrostat) 0.4 Mg Subl, 0.4 MG SL NITRO PRN for CHEST PAIN, ( Reported) Triamcinolone Acet (Triamcinolone Acetonide 0.1% Crm) 1 Dose/15 Gm Cr, 1 DOSE TOP BID PRN for ITCHING, (Reported) APPLIES TO BACK Allergies Coded Allergies: Lisinopril (Verified Allergy, Intermediate, HIVES ND SWELLING, 09/18/12) Penicillins (Verified Allergy, Intermediate, TRIMOX-HIVES, 09/18/12) Sulfa Drugs (Verified Allergy, Intermediate, HIVES, 09/18/12) Amoxicillin (Unverified Allergy, Unknown, 08/20/15) Oxycodone (Verified Allergy, Unknown, PERCOCET, 09/18/12) Temazepam (Unverified Allergy, Unknown, 08/20/15) JESI POLO MD Mar 03, 2017 11:10
[2017-03-04] MEDS ORDERED: INFLUENZA VIRUS VACCINE HIGH DOSE 0.5 ML SYRINGE (90662) IM ONE (09:00)
== END 2017-03-03 14:10 | disposition home or self-care (01) ==
LOC: M ED 20:34 → M ED INP 23:51 → M PCU 03-02 02:10
PROVIDERS: ADMIT Internal Medicine Nephrology; ATTEND Internal Medicine
DX: J44.1 Chronic obstructive pulmonary disease with (acute) exacerbation (principal); Z85.3 Personal history of malignant neoplasm of breast; Z92.21 Personal history of antineoplastic chemotherapy; Z90.13 Acquired absence of bilateral breasts and nipples; J96.11 Chronic respiratory failure with hypoxia; Z99.81 Dependence on supplemental oxygen; F03.90 Unspecified dementia, unspecified severity, without behavioral disturbance, psychotic disturbance, mood disturbance, and anxiety; I10 Essential (primary) hypertension; I50.30 Unspecified diastolic (congestive) heart failure; M10.9 Gout, unspecified; K21.9 Gastro-esophageal reflux disease without esophagitis; K52.831 Collagenous colitis; R00.1 Bradycardia, unspecified; C44.311 Basal cell carcinoma of skin of nose; Z87.891 Personal history of nicotine dependence; Z88.0 Allergy status to penicillin; Z88.2 Allergy status to sulfonamides; Z88.8 Allergy status to other drugs, medicaments and biological substances; Z91.81 History of falling; F41.9 Anxiety disorder, unspecified; F32.9 Major depressive disorder, single episode, unspecified; G47.00 Insomnia, unspecified; G92 Toxic encephalopathy; E83.52 Hypercalcemia; E78.5 Hyperlipidemia, unspecified; N18.3 Chronic kidney disease, stage 3 (moderate)
CPT/HCPCS: 36415; 71010; 80048; 82550; 82553; 82803; 84484; 85025; 87040; 93005; 94640; 96372; 96374; 97161; 99285; G0378; J1100; J1650

== ENCOUNTER → 2017-03-01 | Outpatient (CLI) | payer MEDICARE, MEDICAID | LOC: M PLARAD 13:34 | PROVIDERS: ATTEND Internal Medicine Medical Oncology | DX: C50.919 Malignant neoplasm of unspecified site of unspecified female breast (principal) ==

== ENCOUNTER → 2017-03-15 | Outpatient (CLI) | payer MEDICARE, MEDICAID ==
[~2017-03-15] MED LIST changes: +FISH120012 PO; +MAGN250T3 PO
--- NOTE | 2017-03-15 17:09 | REP ---
PET/CT: History: Breast carcinoma history. Now with left femoral lesion. Radiolucent lesion in the cervical spine at C6. Comparisons: Comparison radionuclide bone scan January 28, 2017. Comparison cervical spine CT study January 27, 2017. TECHNIQUE: 49 minutes following the intravenous injection of a 7.6 mCi dose of F-18 FDG, three-dimensional PET scintigraphy is acquired from the skull base to the proximal thighs. Triplanar noncontrast CT scanning is acquired through the same anatomic range for attenuation correction, and image registration with scan parameters optimized to minimize radiation exposure to the patient. PET scintigraphy and CT datasets were fused and displayed on a workstation with multiplanar and projection display capability. PET/CT Findings: There is hypermetabolic uptake in the lytic lesion in the sixth cervical vertebral body. Maximum standard uptake value here is 12.2. Head and neck soft tissues are otherwise unremarkable. There is a small amount of right pleural fluid. No hypermetabolic pulmonary parenchymal uptake is seen. There is discernible, but nonhypermetabolic uptake in the biopsied lesion in the left lower lobe, maximum standard uptake value 1.7. There is a small subcentimeter left para carinal mediastinal margarette focus of hypermetabolic uptake with maximum standard uptake value 3.3. There is discernible but nonhypermetabolic uptake along the right pleural fluid collection. There is a second skeletal hypermetabolic focus in the left iliac bone along its medial cortex, where there is a 7 mm focus of cortical destruction on the accompanying CT. Maximum standard uptake value in this lesion is 6.6. There is an area of hypermetabolic uptake along the medial cortex of the subtrochanteric femur on the left extending up to the level of the lesser trochanter. There is adjacent soft tissue calcification. Maximum standard uptake value here is 5.8. No definite mass lesion is seen here. No cortical bone destruction is seen. Known sclerotic lesion in the intertrochanteric bone on the left does not show hypermetabolic uptake. Maximum SUV value 1.5. No other hypermetabolic focus is seen. Lastly, there is a hypermetabolic focus in the left popliteal soft tissues with maximum standard uptake value of 4.0. There is no visible lymph node or mass correlate. A Harkins's cyst is seen medially in the popliteal fossa but this does not show avid uptake. Impression: The known lytic lesion in the C6 vertebral body is hypermetabolic. There is a hypermetabolic lesion in the left iliac bone which is 6 mm in size. There is a small hypermetabolic mediastinal node. There are musculoskeletal sites of hypermetabolic uptake along the left proximal femur and in the left popliteal fossa. These could reflect chronic inflammation. No other abnormal hypermetabolic uptake. There is a small amount of right pleural fluid and nonhypermetabolic uptake is seen along the posterior pleural space. Signed by Roberto Velazquez MD 03/15/2017 05:18 P
== END ==
LOC: M PLARAD 11:32
PROVIDERS: ATTEND Internal Medicine Medical Oncology
DX: Z85.3 Personal history of malignant neoplasm of breast (principal); M89.8X8 Other specified disorders of bone, other site
CPT/HCPCS: 78815; A9552

== ENCOUNTER → 2017-03-25 | Outpatient (REF) | payer MEDICARE, MEDICAID | LOC: M LAB 18:45 | PROVIDERS: ATTEND Family Medicine | DX: R19.7 Diarrhea, unspecified (principal); C50.919 Malignant neoplasm of unspecified site of unspecified female breast; C79.51 Secondary malignant neoplasm of bone ==

== ENCOUNTER → 2017-03-25 | Outpatient (REF) | payer MEDICARE, MEDICAID ==
[2017-03-25 13:35] LABS: INR 0.98
== END ==
LOC: M LAB REF 12:51
PROVIDERS: ATTEND Internal Medicine Medical Oncology
DX: C50.919 Malignant neoplasm of unspecified site of unspecified female breast (principal); C79.51 Secondary malignant neoplasm of bone

== ENCOUNTER → 2017-04-05 | Outpatient (CLI) | payer MEDICARE, MEDICAID ==
--- NOTE | 2017-04-07 13:40 | RADONC ---
RADIATION ONCOLOGY CONSULTATION NOTE DATE: 04/05/2017 CHART NUMBER: [id number]. DIAGNOSIS: Breast cancer. STAGE: Metastatic. ECOG PERFORMANCE STATUS: 3. CONSULTATION NOTE: Ms. Delacruz is a very pleasant, 76-year-old white female with the diagnosis of what appears to be metastatic breast cancer who is presenting to us today for consideration of palliative radiation therapy to several painful bony metastatic sites. HISTORY OF PRESENT ILLNESS: The patient was in her the usual state of health until the fall when she was found to have suspicious areas in her bilateral breasts. On 04/02/2009, the patient underwent ultrasound-guided biopsies of both her left and right breast. 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 On 04/30/2009, the patient underwent bilateral simple mastectomies and sentinel lymph node biopsies. Pathology revealed a 1.5 cm moderately differentiated infiltrating ductal carcinoma of the right breast. The tumor was more than 1 cm from all resection margins. In the left breast the patient was found to have a 1.7 cm lesion, which was poorly differentiated. Again, it was more than 1 cm from all resection margins. No Paget's disease of the nipple was found in either specimen. A total of four axillary lymph nodes were sampled, including sentinel lymph nodes of the left and right, and none were positive for metastatic disease. The patient was subsequently seen by medical oncology and underwent systemic therapy consisting of docetaxel/carboplatin. Chemotherapy was completed in October of 2009. Trastuzumab maintenance therapy was completed in June of 2010. Since then, the patient has taken anastrozole from October 2009 until October 2014. She had done well but a recent bone scan was done and showed increased uptake in the C-spine as well as in the left femur. A PET scan followup done 03/15/2017 showed increased uptake at the C6 vertebral body as well as in the left iliac bone and in the left proximal femur. The patient has pain in these areas. She is now being referred for discussion of external beam radiation therapy. Of note, the patient is scheduled for a biopsy of her C-spine next week. PAST MEDICAL HISTORY: The patient's past medical history is positive for arthritis, bronchitis and pneumonias, emphysema, cardiac difficulties, hypertension, diabetes, urinary tract infections, asthma, depression, psychiatric illness, cataract, and oxygen dependency. In addition, the patient has had a tonsillectomy and tubal ligation, and ankle repair. ALLERGIES: The patient is allergic to SULFA DRUGS, PENICILLIN and TEMAZEPAM. She is also allergic to LISINOPRIL. SOCIAL HISTORY: The patient has smoked one packs of cigarettes per day for 50 years. She quit in 2011. She does not abuse alcohol. FAMILY HISTORY: The patient's family history is positive for a sister with breast cancer, daughters with breast cancer, a daughter with cervical cancer, a son with pancreatic cancer and another son with skin cancer. REVIEW OF SYSTEMS: The patient's review of systems is positive for physical limitations secondary to her pulmonary function and her bone pain. She is presenting in a wheelchair on nasal oxygen. She reports anxiety and depression, anorexia as well as some weight loss and difficulty swallowing. She reports shortness of breath and decreased energy. She denies nausea, vomiting, fevers, chills, night sweats, diplopia, chest pain, bowel difficulties. PHYSICAL EXAMINATION: The patient is a chronically ill, white female who is appearing in a wheelchair on nasal oxygen. HEENT exam is normocephalic, atraumatic. Extraocular movements are intact. There is no palpable cervical, supraclavicular, infraclavicular, axillary or inguinal lymphadenopathy present. Her lungs are generally clear to auscultation and percussion. Heart has regular rate and rhythm. She is status post bilateral mastectomy with well-healed surgical scars present. Her abdomen is benign with no hepatosplenomegaly, masses or tenderness. ASSESSMENT: I believe the patient is a candidate for external beam radiation therapy and I have so informed her. I have discussed with the patient in detail the potential benefits as well as possible acute and chronic sequelae of external beam radiation therapy. We discussed logistics of treatment planning, simulation and subsequent fractionated daily radiation treatments. Since the patient is scheduled for a biopsy of her neck, we will wait that procedure prior to initiating radiation to that area. We can however, already begin planning our radiation to her other bony sites. Thank you for allowing us to participate in the care of this very pleasant woman. If I could be of any further assistance or provide you with any information, please feel free to contact me anytime. As always with warm regards. cc: Koki Leung MD, FACP Juvenal Garrett MD
== END ==
LOC: M ONCR 13:16
PROVIDERS: ATTEND Radiology Radiation Oncology
DX: C79.51 Secondary malignant neoplasm of bone (principal); Z85.3 Personal history of malignant neoplasm of breast

== ENCOUNTER 2017-04-13 14:42 | Outpatient (RCR) | payer MEDICARE, MEDICAID ==
--- NOTE | 2017-04-26 06:52 | RADONC ---
RADIATION ONCOLOGY PROGRESS NOTE DATE: 04/25/2017 CHART NUMBER: [id number] Ms. Delacruz underwent her first fraction of radiation today to her left femur. Radiation was tolerated without difficulty or discomfort. REVIEW OF SYSTEMS: The patient's review of systems is positive for some hip discomfort and neck discomfort, as well as shortness of breath requiring nasal oxygen, but was otherwise noncontributory. She denies nausea, vomiting, fevers, chills, night sweats, diplopia, headaches, anxiety or depression, anorexia, weight loss, visual disturbances, chest pain, urinary or bowel difficulties, bone pain, or neurological problems. PHYSICAL EXAMINATION: The patient's skin clearly showed no evidence of radiation change present, as this was her first treatment. The remainder of her physical exam remained unchanged as well. Ms. Delacruz tolerated her first fraction without difficulty and radiation will continue as scheduled. She is scheduled for simulation of her cervical spine as well.
--- NOTE | 2017-04-28 08:12 | RADONC ---
RADIATION ONCOLOGY SIMULATION NOTE DATE: 04/27/2017 CHART NUMBER: [id number] The patient was taken to the CT scan for CT simulation of her cervical spine field. CT was accomplished without difficulty or discomfort. Radiation treatment planning is underway and radiation treatments will begin subsequently. An immobilization device was created including a mask which will be used throughout the course of treatment. I was physically present throughout the course of CT simulation.
--- NOTE | 2017-05-03 06:33 | RADONC ---
RADIATION ONCOLOGY PROGRESS NOTE DATE: 05/02/2017 CHART NUMBER: [id number] Ms. Delacruz is presently at a dose of 1500 cGy to her left femur and is tolerating treatments quite well at this point with no complaints related to radiation therapy. She continues to have some left femur discomfort. This has not increased however. REVIEW OF SYSTEMS: The patient's review of systems is positive for physical limitations secondary to her age and disease. She continues to be on nasal oxygen for shortness of breath. She is presenting in a wheelchair and she has some left femur pain. Her review of systems is otherwise generally noncontributory. She denies nausea, vomiting, fevers, chills, night sweats, diplopia, headaches, anxiety or depression, anorexia, weight loss, visual disturbances, chest pain, urinary or bowel difficulties. PHYSICAL EXAMINATION: The patient's skin is in good condition with no evidence of moist or dry desquamation. The remainder of her physical exam remains unchanged. Ms. Delacruz is tolerating treatments quite well and radiation will continue as scheduled.
[2017-05-03] MEDS ORDERED: NORC10TA21 PO (23:04)
[2017-05-03] MEDS ORDERED: AMLO5TAB2 PO (23:04)
[2017-05-03] MEDS ORDERED: DOXY-278 PO (23:04)
[2017-05-04] MEDS ORDERED: DOXY100T PO (04:56)
[2017-05-04] MEDS ORDERED: PROAAER10 INH (04:56)
[2017-05-04] MEDS ORDERED: PRED10TA2 PO (04:58)
[2017-05-04] MEDS ORDERED: DIPH2.5T14 PO (05:03)
[2017-05-04] MEDS ORDERED: MAXI0.1O OD (05:03)
[2017-05-04] MEDS ORDERED: SERT-138 PO (05:03)
[2017-05-04] MEDS ORDERED: HYDR-3363 PO (05:03)
[2017-05-04] MEDS ORDERED: MAXI0.1S4 OD (05:03)
[2017-05-04] MEDS ORDERED: METH125VL IM (05:08)
[2017-05-05] MEDS ORDERED: PRED10TA2 PO (09:59)
--- NOTE | 2017-05-09 10:18 | RADONC ---
RADIATION ONCOLOGY PROGRESS NOTE DATE: 05/09/2017 CHART NUMBER: [id number] Ms. Delacruz is presently at a dose of 1800 cGy to her left femur and is tolerating treatments quite well at this point with no complaints related to her radiation therapy. She is having no additional pain or other problems at this time. The patient was in the hospital for respiratory issues. She reports that she is now breathing well and having no problems. The patient's review of systems in non-contributory. On physical exam, the patient's skin is in good condition. The physical exam is otherwise unchanged. Radiation will continue as scheduled. [facility]
== END 2017-05-12 ==
LOC: M ONCR 14:42
PROVIDERS: ATTEND Radiology Radiation Oncology
DX: C50.911 Malignant neoplasm of unspecified site of right female breast (principal); C50.912 Malignant neoplasm of unspecified site of left female breast; C79.51 Secondary malignant neoplasm of bone

== ENCOUNTER → 2017-04-27 | Outpatient (CLI) | payer MEDICARE, MEDICAID ==
[~2017-04-27] MED LIST changes: +DIPH2.5T14 PO; +DOXY100T PO; +HYDR-3363 PO; +MAXI0.1O OD; +MAXI0.1S4 OD; +METH125VL IM; +NORC10TA21 PO; +PROAAER10 INH; +SERT-138 PO
--- NOTE | 2017-04-27 11:40 | REP ---
Clinical: Follow up irregular pulmonary densities/nodules. Comparison: 01/28/2017, 09/11/2016. Findings: Chronic stable COPD and emphysematous changes along with chronic interstitial changes and mild bronchiectasis are again noted and essentially unchanged. There is a focal area of irregular ground-glass density and nodule in the left lower lobe (images 50 - 55) which is relatively similar to prior examination. There is an area of chronic consolidation/atelectasis in the deep right posterior sulcus with small reactive pleural fluid which is slightly more prominent than prior examination. There is a new 2.5 mm new nodular density in the periphery of the right upper lobe (image 24) which is otherwise nonspecific. No pleural effusion or pneumothorax. No obvious significant adenopathy. Advanced atherosclerotic changes to the thoracic aorta and coronary arteries appreciated without aortic aneurysm or cardiomegaly. No pericardial effusion. Upper abdomen demonstrates normal bilateral adrenal glands. Surrounding musculoskeletal structures demonstrate age-related degenerative change without focal osseous abnormality. Impression: 1. Small chronic consolidation/atelectasis in the deep right sulcus with associated small pleural reaction may be slightly more pronounced than prior examination. 2. Subtle ground-glass / nodular density in the left lower lobe along with diffuse chronic changes as described above remains stable. 3. Small new 2.5 mm density in the periphery of the right upper lobe (image 24) is nonspecific. Differential diagnosis includes new small scar versus active pathology. Consider reevaluation in 3-6 months. Signed by Abisai Reyes MD 04/27/2017 11:33 A
== END ==
LOC: M RAD 10:52
PROVIDERS: ATTEND Internal Medicine Pulmonary Disease
DX: R91.8 Other nonspecific abnormal finding of lung field (principal)

== ENCOUNTER → 2017-04-27 | Outpatient (CLI) | payer MEDICARE, MEDICAID ==
[~2017-04-27] MED LIST changes: -DIPH2.5T14 PO; -DOXY100T PO; -HYDR-3363 PO; -MAXI0.1O OD; -MAXI0.1S4 OD; -METH125VL IM; -PROAAER10 INH; -SERT-138 PO
== END ==
LOC: M RAD 10:01
PROVIDERS: ATTEND Radiology Radiation Oncology
DX: C50.919 Malignant neoplasm of unspecified site of unspecified female breast (principal); C79.51 Secondary malignant neoplasm of bone

== ENCOUNTER 2017-05-03 22:50 | Inpatient (IN) | payer MEDICARE, MEDICAID ==
[~2017-05-03] VITALS: Ht 157.5 cm; Wt 81.1 kg
[~2017-05-03 22:50] MED LIST changes: -NORC10TA21 PO
[2017-05-03] MEDS ORDERED: AMLO5TAB2 PO (23:04)
[2017-05-03] MEDS ORDERED: NORC10TA21 PO (23:04)
[2017-05-03] MEDS ORDERED: DOXY-278 PO (23:04)
[2017-05-04] MEDS ORDERED: methylPREDNISolone INJ 125 MG/2 ML VIAL (J2930) IV ONE (00:30)
[2017-05-04] MEDS: IPRATROPIUM 0.5MG/ALBUTEROL 2.5MG INH SOL UD 3ML (DUONEB)(J7620) NEB SCH ×3 (01:08→10:43)
[2017-05-04 01:19] LABS: ABG BASE EXCESS 1.7 (-2.0-2.0); ABG HCO3 26.9 MEQ/L (22.0-26.0); ABG PARTIAL PRESSURE CO2 45.3 mmHg (35.0-45.0); ABG PARTIAL PRESSURE O2 64.6 mmHg (75.0-100.0); ABG STANDARD HCO3 25.9 MEQ/L (22.0-26.0); ABG TOTAL CO2 28.3 MEQ/L (23.0-31.0); ABG pH (ARTERIAL) 7.392 UNITS (7.350-7.450)
[2017-05-04 01:25] LABS: BASO % 0.2 % (0.0-1.0); IMMATURE GRANULOCYTE % 1.7 % (0-0); LYMPH # 0.6 10^3/uL (1.5-4.5); MEAN CORPUSCULAR HEMOGLOBIN 28.7 pg (27.0-33.0); MEAN CORPUSCULAR HGB CONC 31.1 g/dl (32.0-36.5); MEAN CORPUSCULAR VOLUME 92.2 fl (80.0-96.0); MONO # 0.5 10^3/uL (0.0-0.8); NEUTROPHILS # 9.2 10^3/uL (1.8-7.7); NEUTROPHILS % 87.1 % (36.0-66.0); PLATELET COUNT, AUTOMATED 280 10^3/uL (150-450); RED CELL DISTRIBUTION WIDTH 15.7 % (11.5-14.5); WHITE BLOOD COUNT 10.6 10^3/uL (4.0-10.0)
--- NOTE | 2017-05-04 01:40 | REPUSA ---
CLINICAL HISTORY: Dyspnea and cough. COMMENTS: Comparison to prior exam on 09/11/16. AP view demonstrates diffusely increased interstitial lung markings consistent with bronchitis. Unchanged minimal bilateral basilar atelectatic airspace disease. The cardiac silhouette is within normal limits of size. No significant other cardiopulmonary abnormal ities are seen. The mediastinum is unremarkable. Left shoulder arthroplasty. Metallic prosthesis is in good position. IMPRESSION Bronchitis. This was not present on prior exam. Unchanged basilar atelectatic airspace disease. Thank you for your kind referral of this patient.
[2017-05-04 01:41] LABS: INR 1.05
[2017-05-04 01:49] LABS: ALBUMIN 2.8 GM/DL (3.2-5.2); ALBUMIN/GLOBULIN RATIO 0.88 (1.00-1.93); ALKALINE PHOSPHATASE 65 U/L (45-117); ALT/SGPT 20 U/L (12-78); ANION GAP 8 MEQ/L (8-16); AST/SGOT 12 U/L (7-37); BILIRUBIN,DIRECT < 0.1 MG/DL (0.0-0.2); BILIRUBIN,TOTAL 0.2 MG/DL (0.2-1.0); BLOOD UREA NITROGEN 24 MG/DL (7-18); CALCIUM LEVEL 8.7 MG/DL (8.8-10.2); CARBON DIOXIDE LEVEL 28 MEQ/L (21-32); CHLORIDE LEVEL 105 MEQ/L (98-107); CREATININE FOR GFR 1.75 MG/DL (0.55-1.02); GLOMERULAR FILTRATION RATE 29.9 (>39); GLUCOSE, FASTING 300 MG/DL (83-110); POTASSIUM SERUM 4.5 MEQ/L (3.5-5.1); SODIUM LEVEL 141 MEQ/L (136-145)
[2017-05-04] MEDS ORDERED: ACETAMINOPHEN TAB 650MG DOSE (2X325MG) PO PRN (04:30)
[2017-05-04] MEDS ORDERED: IPRATROPIUM 0.5MG/ALBUTEROL 2.5MG INH SOL UD 3ML (DUONEB)(J7620) NEB PRN (04:30)
[2017-05-04] MEDS ORDERED: PROAAER10 INH (04:56)
[2017-05-04] MEDS ORDERED: DOXY100T PO (04:56)
[2017-05-04] MEDS ORDERED: PRED10TA2 PO (04:58)
[2017-05-04] MEDS ORDERED: SERT-138 PO (05:03)
[2017-05-04] MEDS ORDERED: HYDR-3363 PO (05:03)
[2017-05-04] MEDS ORDERED: DIPH2.5T14 PO (05:03)
[2017-05-04] MEDS ORDERED: MAXI0.1O OD (05:03)
[2017-05-04] MEDS ORDERED: MAXI0.1S4 OD (05:03)
[2017-05-04] MEDS ORDERED: METH125VL IM (05:08)
[2017-05-04 05:12] LABS: BASO % 0.2 % (0.0-1.0); IMMATURE GRANULOCYTE % 1.3 % (0-0); LYMPH # 0.6 10^3/uL (1.5-4.5); LYMPH % 3.3 % (24.0-44.0); MEAN CORPUSCULAR HEMOGLOBIN 28.6 pg (27.0-33.0); MEAN CORPUSCULAR HGB CONC 31.5 g/dl (32.0-36.5); MEAN CORPUSCULAR VOLUME 90.8 fl (80.0-96.0); MONO # 0.7 10^3/uL (0.0-0.8); MONO % 3.9 % (0.0-5.0); NEUTROPHILS # 15.3 10^3/uL (1.8-7.7); NEUTROPHILS % 91.3 % (36.0-66.0); PLATELET COUNT, AUTOMATED 249 10^3/uL (150-450); RED CELL DISTRIBUTION WIDTH 15.8 % (11.5-14.5); WHITE BLOOD COUNT 16.8 10^3/uL (4.0-10.0)
[2017-05-04 05:27] LABS: CALCIUM LEVEL 8.6 MG/DL (8.8-10.2); CREATININE FOR GFR 1.68 MG/DL (0.55-1.02); GLOMERULAR FILTRATION RATE 31.4 (>39); POTASSIUM SERUM 4.3 MEQ/L (3.5-5.1)
[2017-05-04 06:20] VITALS: BP 170/78
--- NOTE | 2017-05-04 06:58 | HPE ---
DATE OF ADMISSION: 05/04/2017 CHIEF COMPLAINT: The patient, Isidra Delacruz, is a 76-year-old female. The patient comes in with chief complaint of shortness of breath. HISTORY OF PRESENT ILLNESS: The patient notes that of late over the last few days, she has been having more difficulty breathing. The patient went to her primary medical doctor (PMD), Dr. Garrett, who increased her home oxygen from two liters oxygen to three liters oxygen, started her on doxycycline, gave her some intravenous (IV) Solu-Medrol, and sent her home on outpatient antibiotics. The patient was not feeling any better; therefore, came to the emergency department (ED). While at home, the patient was found to have desaturated to 74% as per the daughter. Patient brought in by emergency medical services (EMS). While in the ED, patient found to be saturating poorly. The patient did receive ED treatment including IV Solu-Medrol, DuoNeb. The patient did improve somewhat; however, the patient still desaturating considerably on exertion. The patient also found to have significant hemoglobin and hematocrit (H and H). Therefore, ED doctor and hospital doctor agreed the patient requires inpatient admission for continuing observation and further workup of anemia. Daughter notes that when she has been wiping her mother, that in fact, there was blood a couple of days ago. She said they went to her doctor, Dr. Lee, before they went to Dr. Garrett, who said just to keep an eye on it. REVIEW OF SYSTEMS: The patient without any other acute complaints, other than was noted above in the history of present illness (HPI). ALLERGIES: Patient allergic to AMOXICILLIN, LISINOPRIL, OXYCODONE, PENICILLIN, SULFA DRUGS, and TEMAZEPAM. HOME MEDICATIONS: Include acetaminophen/hydrocodone, albuterol, DuoNeb, amlodipine, aspirin, calcium, doxycycline, fish oil, fluoxetine, fluticasone, gabapentin, magnesium, multivitamin, nitroglycerin given STAT here, oxybutynin, pantoprazole, prednisone, Advair and Spiriva. PAST MEDICAL HISTORY: The patient's previous medical history includes bilateral breast cancer, status post mastectomy and chemotherapy, metastatic lesion of the left femur, chronic obstructive pulmonary disease (COPD), hypoxic respiratory failure, dementia, hypertension, diastolic congestive heart failure (CHF), gout, gastroesophageal reflux disease (GERD), collagenous colitis, basal cell carcinoma of the nose, bradycardia, (please clarify), lung nodule negative for malignancy, history of deep venous thrombosis (DVT) with inferior vena cava (IVC) placement, chronic kidney disease (CKD), anxiety, depression, insomnia, dyslipidemia, peripheral neuropathy, and chronic back pain. PAST SURGICAL HISTORY: As noted above, mastectomy, tubal ligation, left ankle arthroplasty, left shoulder arthroplasty, and IVC filter placement. FAMILY HISTORY: Sisters with breast cancer and lung cancer in the family. PHYSICAL EXAMINATION: Patient on admission to the ED, temperature 97.9, pulse 92, respiratory rate 18, blood pressure 156/61, pulse oximetry 90% on three liters nasal cannula. Now better at 93% on nasal cannula. LABORATORY DATA: Laboratory exam shows WBC 10.6, hemoglobin and hematocrit 8.5 and 27.3, decreased from baseline considerably, platelet count 280. Chemistry: Sodium 141, potassium 4.5, chloride 105, carbon dioxide 28, BUN and creatinine 24 over 1.75. Creatinine is around baseline for patient. Fasting glucose 300. Calcium 8.5, pro-BNP 2827. Troponin is negative at 0.08. EKG shows the patient in sinus rhythm. No obvious acute ischemic findings on EKG. IMAGING: Chest x-ray: Bronchitis not present on prior exam, unchanged basilar atelectasis and airspace disease. Thank you for your kind referral of this patient. ASSESSMENT AND PLAN: The patient is a 76-year-old female with significant comorbidities as noted above, who comes in with shortness of breath, being admitted under the impression of chronic obstructive pulmonary disease (COPD) exacerbation and acute anemia secondary to blood loss, most likely gastrointestinal (GI) source given the bloody stools over the past couple of days. 1. Gastrointestinal (GI) bleed: Although patient negative in occult blood test in the ED, given the positive history, we will regard GI bleed as most likely source of patient's anemia. No anticoagulants for the patient. Gastroenterology (GI) to be contacted in the morning. Patient to be nothing by mouth pending GI evaluation, possible need for scope; therefore, no food. No fluid hydration as long as pressure allows as the patient also has mildly increased pro-brain natriuretic peptide (BNP), which may be secondary to patient's diastolic congestive heart failure (CHF). 2. Chronic obstructive pulmonary disease (COPD) exacerbation: May be secondary to CHF versus new anemia. Oral steroids, nasal cannula, plus DuoNeb. Hold home medications for now. 3. Hypertension: Continue home medications. 4. Neuropathy: Continue home medications. 5. Depression: Continue home medications. 6. GI prophylaxis and gastroesophageal reflux disease (GERD): Continue proton pump inhibitor (PPI). 7. Deep venous thrombosis (DVT) prophylaxis with IPCs only. Given the new findings of GI bleed with anemia, plus shortness of breath, and requirement for workup and stabilization of the patient's respiratory status, I believe admission to be greater than two midnights. Patient initially seen 05/04/2017.
[2017-05-04 07:04] VITALS: O2SAT 94
[2017-05-04] MEDS: LOMOTIL 2.5MG/0.025MG TABLET PO SCH ×5 (09:00→20:21)
[2017-05-04] MEDS ORDERED: CALCIUM/VITAMIN D 500 MG TAB PO SCH (09:00)
[2017-05-04] MEDS: FLUTICASONE PROP 0.05% NASAL SPRAY 16 GM (FLONASE) SCH ×2 (09:00→20:19)
[2017-05-04] MEDS: MAXITROL OPHTH SUSP 5 ML OD SCH ×4 (09:00→20:22)
--- NOTE | 2017-05-04 09:33 | ECGEPIP ---
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
[2017-05-04] MEDS: predniSONE 20 MG TAB PO SCH (09:35)
[2017-05-04] MEDS: PANTOPRAZOLE 40MG TAB (PROTONIX) PO SCH (09:35)
[2017-05-04] MEDS ORDERED: NITROGLYCERIN 0.4 MG SUBL TABLET SL PRN (10:00)
[2017-05-04] MEDS ORDERED: ALBUTEROL 90 MCG/ACT 8GM HFA INHALER INH PRN (10:00)
[2017-05-04] MEDS: ADVAIR HFA 115/21MCG INHALER INH SCH ×2 (10:43→20:53)
[2017-05-04] MEDS: TIOTROPIUM INHALER/CAPSULE (SPIRIVA) INH SCH (10:44)
[2017-05-04] MEDS: GABAPENTIN 300 MG CAP PO SCH (11:34)
[2017-05-04] MEDS: hydrOXYzine 25 MG TAB PO SCH ×3 (11:34→20:21)
[2017-05-04] MEDS: SUCRALFATE 1 GM TAB PO SCH ×2 (11:35→17:22)
[2017-05-04] MEDS: SERTRALINE HCL 50 MG TAB PO SCH (11:35)
[2017-05-04] MEDS: FLUoxetine 20 MG CAP PO SCH ×2 (11:35→11:38)
[2017-05-04] MEDS: ASPIRIN 81 MG ENTERIC TAB PO SCH (11:36)
[2017-05-04] MEDS: amLODIPine 5 MG TAB PO SCH (11:36)
[2017-05-04] MEDS: MULTIVITAMINS/MINERALS THERAP 1 TAB PO SCH (11:36)
[2017-05-04] MEDS: oxyBUTYnin *DITROPAN XL* 5 MG TABCR PO SCH (11:36)
[2017-05-04] MEDS: CALCIUM/VITAMIN D 500 MG TAB PO SCH ×2 (13:21→20:20)
[2017-05-04 14:00] VITALS: BP 163/68
[2017-05-04] MEDS ORDERED: GABAPENTIN 300 MG CAP PO SCH (21:00)
[2017-05-04] MEDS ORDERED: MAXITROL OPHTH OINT 3.5 GM OD SCH (21:00)
[2017-05-04 22:00] VITALS: BP 159/76
--- NOTE | 2017-05-05 | CR.PDOC ---
[facility] Consultation Consultation DATE OF CONSULTATION: May 04, 2017 at 17:00 Primary physician/ hospitalist: Dr. Lela Clay Reason for consult: Rectal bleeding HPI: 76 year old woman with COPD, HTN, Diastolic CHF, collagenous colitis ( confirmed on colonoscopy biopsy in 2012, follows with Dr. Maria ), h/o DVT s/p IVC filter, bilateral breast cancer, s/p mastectomy and chemotherapy, metastatic lesion of the left femur, presented to ER for complaints of shortness of breath. Patient also reported intermittent rectal bleeding and GI was consulted. At bedside patient reports having decreased frequency of bowel movements and last BM was 3 days ago. Patient also having intermittent constipation. Pertinent negative GI symptoms: Patient denies nausea, vomiting, diarrhea, abdominal pain, loss of appetite, early satiety or unintentional weight loss. No history of hematemesis. Review of Systems: GI: as stated above CVS: No chest pain, No palpitations, No leg swelling. RS: Shortness of breath, No Wheezing, no cough CATTLE RANCHER: No dizziness, No motor weakness, No sensory problems Hematology: No bruising, No gum bleeding, Musculoskeletal: No joint pain, ambulating well. Skin: No rash : No hematuria, No burning sensation of the urine ENT: No ear discharge/ pain, No dysphagia. Eyes: No photophobia. Home medications: reviewed. Medical h/o: As above. Surgical h/o: prior tubal ligation. Social h/o: denies toxic habits . Family h/o: non contributory. Prior Endoscopies: --- Colonoscopy 2012 ( collagenous colitis) Exam: Vitals: reviewed General: Alert and oriented x 3, not in distress HEENT: NO pallor, no icterus. Normal oropharynx, NO cervical lymph nodes. Chest: symmetric with bilateral clear air entry, CVS: S1, S2 heard, normal, no murmurs . Abdomen: non-distended, no surgical scars, soft, non-tender, no palpable masses , normal and increased bowel sounds heard. Rectal exam: formed stool. No palpable mass, no blood on the glove.. Extremities: no pedal edema, pulses palpable. CATTLE RANCHER: no focal motor or sensory deficits. Moves all extremities Skin: no rash. Labs: reviewed. Imaging: reviewed Impression: -History of rectal bleeding, no further episodes in hospital-- likely self limited internal hemorrhoids vs radiation-colitis vs infectious . Recommendations: -Give high fiber diet. - Discussed the need for colonoscopy. Patient wanted to do colonoscopy as outpatient electively. - The procedure, indications, risks, benefits, limitations and all other alternatives (including no intervention) were explained to the patient. -Miralax 17gms daily. - Monitor H&H and transfuse as needed. - Upon discharge give appointment to Dr. Maria in 1 to 2 weeks. - NO contraindication for aspirin - Recall GI if any change in patient status. Plan of care discussed with patient and primary team. Patient verbalized understanding and agreed with the plan. Allergies Coded Allergies: Lisinopril (Verified Allergy, Intermediate, HIVES ND SWELLING, 09/18/12) Penicillins (Verified Allergy, Intermediate, TRIMOX-HIVES, 09/18/12) Sulfa Drugs (Verified Allergy, Intermediate, HIVES, 09/18/12) Amoxicillin (Unverified Allergy, Unknown, 08/20/15) Oxycodone (Verified Allergy, Unknown, PERCOCET, 09/18/12) Temazepam (Unverified Allergy, Unknown, 08/20/15) Home Medications Scheduled (Magnesium 250 mg) 1 Tab Tab, 250 MG PO DAILY, (Reported) AT NOON Amlodipine Besylate (Amlodipine Besylate) 5 Mg Tab, 5 MG PO DAILY, (Reported) Aspirin (Aspirin EC) 81 Mg Tabec, 81 MG PO DAILY, (Reported) Calcium/Vitamin D (Calcium 600 + D 600-400 mg-Unit) 1 Tab Tab, 1 TAB PO BID, ( Reported) Diphenoxylate/Atropine (Diphenoxylate/Atropine 2.5-0.025 mg) 1 Ea Tab, 1 EA PO QID, (Reported) Doxycycline Hyclate (Doxycycline Hyclate) 100 Mg Tab, 100 MG PO Q12H, (Reported) Fish Oil (Fish Oil) 1,200 Mg Cap, 1,200 MG PO DAILY, (Reported) Fluoxetine Hcl (Fluoxetine HCl) 20 Mg Cap, 60 MG PO DAILY, (Reported) Fluticasone Propionate (Fluticasone Propionate 0.05%) 120 [place]/16 Gm Naspr, 2 SPRAY NA BID, (Reported) PER NOSTRIL Gabapentin (Gabapentin) 600 Mg Tab, 600 MG PO QHS, (Reported) Gabapentin (Gabapentin) 600 Mg Tab, 300 MG PO BID, (Reported) MORNING AND NOON Hydroxyzine HCl (Hydroxyzine HCl) 25 Mg Tab, 25 MG PO TID, (Reported) Methylprednisolone (Solu-Medrol) Unknown Strength Inj, Unknown Dose IM ONCE, ( Reported) TO HIP Multivitamins *[facility] STOCKED* (Thera M Plus *[facility] STOCKED*) 1 Tab Tab, 1 TAB PO DAILY, (Reported) AT NOON Neomycin/Polymyxin/Dexameth (Maxitrol 3.5-57026-1.1) 1 Oin Oin, 1 DOSE OD QHS, ( Reported) Neomycin/Polymyxin/Dexameth (Maxitrol 3.5-44698-0.1) 1 Maite Maite, 1 DROP OD QID, ( Reported) Oxybutynin Chloride (Oxybutynin Chloride ER) 10 Mg Tab, 10 MG PO DAILY, ( Reported) Pantoprazole Sodium (Pantoprazole Sodium) 40 Mg Tab, 40 MG PO DAILY, (Reported) Prednisone (Prednisone) 10 Mg Tab, 10 MG PO DAILY, (Reported) Salmeterol/Fluticasone (Advair Diskus 250-50 Mcg/Dose) 14 Puff/Inhaler Aerp, 1 PUFF INH BID, (Reported) Sertraline HCl (Sertraline HCl) 100 Mg Tab, 150 MG PO DAILY, (Reported) Sucralfate (Sucralfate) 1 Gm Tab, 1 GM PO TID, (Reported) ONE HOUR BEFORE MEALS Tiotropium [place] Monohydrate (Spiriva Handihaler) 18 Mcg Cap, 1 INHALATION INH DAILY, (Reported) Scheduled PRN Acetaminophen/Hydrocodone ([place] 10-325 mg) 1 Tab Tab, 1 TAB PO QID PRN for HIP AND NECK PAIN, (Reported) Albuterol Sulfate (Proair Hfa) 108 Mcg/Act Aer, 2 PUFF INH Q4H PRN for SHORTNESS OF BREATH, (Reported) Albuterol/Ipratropium (Ipratropium [place]/Albut 0.5-2.5 (3) mg/3Ml) 1 Alek Alek, 1 ALEK INH Q4H PRN for SHORTNESS OF BREATH, (Reported) Nitroglycerin (Nitrostat) 0.4 Mg Subl, 0.4 MG SL Q5MP PRN for CHEST PAIN, ( Reported) HERRERA SINGH MD May 05, 2017 00:00
[2017-05-05 06:00] VITALS: BP 138/82
[2017-05-05 06:52] LABS: MEAN CORPUSCULAR HEMOGLOBIN 28.5 pg (27.0-33.0); MEAN CORPUSCULAR HGB CONC 30.4 g/dl (32.0-36.5); MEAN CORPUSCULAR VOLUME 93.7 fl (80.0-96.0); PLATELET COUNT, AUTOMATED 287 10^3/uL (150-450); RED CELL DISTRIBUTION WIDTH 15.9 % (11.5-14.5); WHITE BLOOD COUNT 17.7 10^3/uL (4.0-10.0)
[2017-05-05 07:05] LABS: CALCIUM LEVEL 9.1 MG/DL (8.8-10.2); CREATININE FOR GFR 1.49 MG/DL (0.55-1.02); POTASSIUM SERUM 4.7 MEQ/L (3.5-5.1)
[2017-05-05] MEDS: TIOTROPIUM INHALER/CAPSULE (SPIRIVA) INH SCH (08:00)
[2017-05-05] MEDS: ADVAIR HFA 115/21MCG INHALER INH SCH (08:00)
[2017-05-05] MEDS: MIRALAX *UNIT DOSE* 17GM PACKET PO SCH ×2 (09:00→09:44)
[2017-05-05] MEDS: MULTIVITAMINS/MINERALS THERAP 1 TAB PO SCH (09:44)
[2017-05-05] MEDS: SERTRALINE HCL 50 MG TAB PO SCH (09:44)
[2017-05-05] MEDS: hydrOXYzine 25 MG TAB PO SCH (09:45)
[2017-05-05] MEDS: ASPIRIN 81 MG ENTERIC TAB PO SCH (09:45)
[2017-05-05] MEDS: CALCIUM/VITAMIN D 500 MG TAB PO SCH (09:45)
[2017-05-05] MEDS: PANTOPRAZOLE 40MG TAB (PROTONIX) PO SCH (09:45)
[2017-05-05] MEDS: SUCRALFATE 1 GM TAB PO SCH (09:45)
[2017-05-05] MEDS: GABAPENTIN 300 MG CAP PO SCH (09:45)
[2017-05-05 09:46] VITALS: BP 146/82
[2017-05-05] MEDS: MAXITROL OPHTH SUSP 5 ML OD SCH (09:46)
[2017-05-05] MEDS: amLODIPine 5 MG TAB PO SCH (09:46)
[2017-05-05] MEDS: predniSONE 20 MG TAB PO SCH (09:52)
[2017-05-05] MEDS: oxyBUTYnin *DITROPAN XL* 5 MG TABCR PO SCH (09:53)
[2017-05-05] MEDS: FLUTICASONE PROP 0.05% NASAL SPRAY 16 GM (FLONASE) SCH (09:53)
[2017-05-05 09:56] LABS: PERCENT SATURATION 15.3 % (13.2-45.0); URIC ACID 8.2 MG/DL (2.6-6.0)
[2017-05-05] MEDS ORDERED: PRED10TA2 PO (09:59)
--- NOTE | 2017-05-05 14:10 | DS.PDOC ---
Discharge Summary General Date of Admission May 04, 2017 at 04:16 Date of Discharge 05/05/2017 Primary Care Physician: MAIKOL TERESA MD Attending Physician: LICO GARCIA MD Specialist/Consultants Involve: HERRERA SINGH MD Discharge Summary PROCEDURES PERFORMED DURING STAY: None. DISCHARGE DIAGNOSES: 1. COPD exacerbation secondary to bronchitis. 2. Chronic Anemia due to anemia of chronic disease, vit B12 deficiency. 3. Acute on Chronic respiratory failure with hypoxia 4. Metastatic breast cancer to femur and cervical spine currently undergoing palliative radiation to femur. 5. History of rectal bleeding, no further episodes in hospital-- likely self limited internal hemorrhoids vs radiation-colitis vs infectious 6. Gastroesophageal reflux disease. 7. Post herpetic neuralgia 8. Collagenous colitis. 9. Dementia. 10. Hypertension. 11. Grade I diastolic dysfunction. 12. Gout. 13. Gastrointestinal reflux disease (GERD). 14. Basal cell cancer of the nose. 15. Generalized deconditioning and history of gait abnormality and multiple falls. 15. Lung nodule biopsy negative for malignancy. 16. History of pulmonary embolism and deep venous thrombosis (DVT) status post inferior vena cava (IVC) filter. 17. Chronic kidney disease (CKD) stage III. 18. Anxiety, depression and insomnia. 19. Dyslipidemia. 20. Peripheral neuropathy. 21. Chronic back pain. 22. Leucocytosis due to steroids. COMPLICATIONS/CHIEF COMPLAINT: Hypoxia. HISTORY OF PRESENT ILLNESS: Ms. Delacruz is a 76-year-old female who presents to [facility]'s Emergency Department that notes that of late over the last few days, she has been having more difficulty breathing. The patient went to her primary medical doctor (PMD), Dr. Teresa, who increased her home oxygen from two liters oxygen to three liters oxygen, started her on doxycycline, gave her some intravenous (IV) Solu-Medrol, and sent her home on outpatient antibiotics. The patient was not feeling any better; therefore, came to the emergency department (ED). While at home, the patient was found to have desaturated to 74% as per the daughter. Patient brought in by emergency medical services (EMS). While in the ED, patient found to be saturating poorly. The patient did receive ED treatment including IV Solu-Medrol, DuoNeb. The patient did improve somewhat; however, the patient still desaturating considerably on exertion. The patient also found to have significant hemoglobin and hematocrit ( H and H). Therefore, ED doctor and hospital doctor agreed the patient requires inpatient admission for continuing observation and further workup of anemia. Daughter notes that when she has been wiping her mother, that in fact, there was blood a couple of days ago. She said they went to her doctor, Dr. eLe, before they went to Dr. Teresa, who said just to keep an eye on it. HOSPITAL COURSE: The patient was admitted. A GI consult was obtained with recommendations for further out-patient evaluation, start MiraLax 17g daily, monitor hemoglobin and hematocrit, and obtain appointment with gastroenterology in 1-2 weeks. Patient's home breathing medications were continued. She was provided a COPD diet. During follow-up evaluation on 05/05/17 patient expressed her wish to be discharged. Based on her poor prognostic cancer diagnosis patient wanted to be discharged in order to spend time with family. Although not at baseline, we are agreeable for patient to be discharged, but to return for persistent or worsening of symptoms. Patient understood and agreed with plan. DISCHARGE MEDICATIONS: Please see below. ALLERGIES: Please see below. PHYSICAL EXAMINATION ON DISCHARGE: VITAL SIGNS: Please see below. GENERAL: Obese female, wearing hospital gown, nasal cannula in place, visibly upset and tearful HEENT: Atraumatic, normocephalic, PERRL, EOMI, oral mucosa appears pink and moist, nasal cannula in place NECK: Supple, round, trachea midline, no lymphadenopathy CARDIOVASCULAR EXAMINATION: Regular rate and rhythm, normal S1 and S2, no murmur , rub, click RESPIRATORY EXAMINATION: Expiratory wheezes appreciated throughout, crackles appreciated in the right lung lobe ABDOMINAL EXAMINATION: Round, soft, non-tender, non-distended, bowel sounds appreciated EXTREMITIES: Radial and posterior tibial pulses equal, symmetrical, +2, without significant edema SKIN: Warm, dry, intact NEUROLOGICAL EXAMINATION: CN II-XII grossly intact PSYCHIATRIC EXAMINATION: Visibly upset and tearful LABORATORY DATA: Please see below. IMAGING: Portable chest x-ray IMPRESSION: Bronchitis. This was not present on prior exam. Unchanged basilar atelectatic airspace disease. PROGNOSIS: Overall, poor ACTIVITY: Ambulate with walker. DIET: COPD diet. DISCHARGE PLAN: Problem: Managing health at home Goal: Improve health & wellness Instructions: Follow DC Instruction DISPOSITION: Home, Self-Care. DISCHARGE INSTRUCTIONS: 1. Complete Prednisone taper; continue with regularly home dose Prednisone after completion of taper. 2. Follow-up with gastroenterology, Dr. Maria, for anemia. 3. Schedule appointment with primary care provider, Dr. Teresa, in 7-10 days. 4. If symptoms persist or worsen, please do not hesitate to return to the nearest Emergency Department. ITEMS TO FOLLOWUP ON ON OUTPATIENT: 1. COPD. 2. Anemia. 3. Metastatic breast cancer. DISCHARGE CONDITION: Stable, but overall poor prognosis. TIME SPENT ON DISCHARGE: Greater than 30 minutes. Vital Signs/I&Os Vital Signs Date Time Temp Pulse Resp B/P (MAP) Pulse Ox O2 Delivery O2 Flow Rate FiO2 05/05/17 09:46 63 146/82 05/05/17 08:00 Nasal Cannula 3.0 05/05/17 06:00 97.7 19 92 I&O- Last 24 Hours up to 6 AM 05/06/17 06:00 Intake Total 510 ml Output Total 250 ml Balance 260 ml Laboratory Data Labs 24H Laboratory Tests 2 05/05/17 06:28: Nucleated Red Blood Cells % (auto) 0.0, Anion Gap 5L, Glomerular Filtration Rate 36.0L, Uric Acid 8.2H, Blood Urea Nitrogen 30H, Creatinine 1.49H, Sodium Level 142, Potassium Level 4.7, Chloride Level 106, Carbon Dioxide Level 31, Calcium Level 9.1, Iron Level 45L, Total Iron Binding Capacity 295, Transferrin % Saturation 15.3, Ferritin 81, Lactate Dehydrogenase 270H, Thyroid Stimulating Hormone (TSH) 0.886 05/05/17 09:23: CBC/BMP Laboratory Tests 05/05/17 06:28 Red Blood Count 3.02 L, Mean Corpuscular Volume 93.7, Mean Corpuscular Hemoglobin 28.5, Mean Corpuscular Hemoglobin Concent 30.4 L, Red Cell Distribution Width 15.9 H, Calcium Level 9.1 Microbiology Microbiology 05/04/17 Influenza Virus Type A Antigen - Final, Complete 05/04/17 Influenza Virus Type B Antigen - Final, Complete Discharge Medications Scheduled (Magnesium 250 mg) 1 Tab Tab, 250 MG PO DAILY, (Reported) AT NOON Amlodipine Besylate (Amlodipine Besylate) 5 Mg Tab, 5 MG PO DAILY, (Reported) Aspirin (Aspirin EC) 81 Mg Tabec, 81 MG PO DAILY, (Reported) Calcium/Vitamin D (Calcium 600 + D 600-400 mg-Unit) 1 Tab Tab, 1 TAB PO BID, ( Reported) Diphenoxylate/Atropine (Diphenoxylate/Atropine 2.5-0.025 mg) 1 Ea Tab, 1 EA PO QID, (Reported) Fish Oil (Fish Oil) 1,200 Mg Cap, 1,200 MG PO DAILY, (Reported) Fluoxetine Hcl (Fluoxetine HCl) 20 Mg Cap, 60 MG PO DAILY, (Reported) Fluticasone Propionate (Fluticasone Propionate 0.05%) 120 [place]/16 Gm Naspr, 2 SPRAY NA BID, (Reported) PER NOSTRIL Gabapentin (Gabapentin) 600 Mg Tab, 600 MG PO QHS, (Reported) Gabapentin (Gabapentin) 600 Mg Tab, 300 MG PO BID, (Reported) MORNING AND NOON Hydroxyzine HCl (Hydroxyzine HCl) 25 Mg Tab, 25 MG PO TID, (Reported) Multivitamins *[facility] STOCKED* (Thera M Plus *[facility] STOCKED*) 1 Tab Tab, 1 TAB PO DAILY, (Reported) AT NOON Neomycin/Polymyxin/Dexameth (Maxitrol 3.5-89539-8.1) 1 Oin Oin, 1 DOSE OD QHS, ( Reported) Neomycin/Polymyxin/Dexameth (Maxitrol 3.5-14196-9.1) 1 Maite Maite, 1 DROP OD QID, ( Reported) Oxybutynin Chloride (Oxybutynin Chloride ER) 10 Mg Tab, 10 MG PO DAILY, ( Reported) Pantoprazole Sodium (Pantoprazole Sodium) 40 Mg Tab, 40 MG PO DAILY, (Reported) Prednisone (Prednisone) 10 Mg Tab, 10 MG PO DAILY, (Reported) Prednisone (Prednisone) 10 Mg Tab, 10 MG PO TAPER Take 4 tabs daily x3 days, then 3 tabs daily x3 days, then 2 tabs daily x3 days, then 1 tab daily x3 days; then home dose Salmeterol/Fluticasone (Advair Diskus 250-50 Mcg/Dose) 14 Puff/Inhaler Aerp, 1 PUFF INH BID, (Reported) Sertraline HCl (Sertraline HCl) 100 Mg Tab, 150 MG PO DAILY, (Reported) Sucralfate (Sucralfate) 1 Gm Tab, 1 GM PO TID, (Reported) ONE HOUR BEFORE MEALS Tiotropium [place] Monohydrate (Spiriva Handihaler) 18 Mcg Cap, 1 INHALATION INH DAILY, (Reported) Scheduled PRN Acetaminophen/Hydrocodone ([place] 10-325 mg) 1 Tab Tab, 1 TAB PO QID PRN for HIP AND NECK PAIN, (Reported) Albuterol Sulfate (Proair Hfa) 108 Mcg/Act Aer, 2 PUFF INH Q4H PRN for SHORTNESS OF BREATH, (Reported) Albuterol/Ipratropium (Ipratropium [place]/Albut 0.5-2.5 (3) mg/3Ml) 1 Alek Alek, 1 ALEK INH Q4H PRN for SHORTNESS OF BREATH, (Reported) Nitroglycerin (Nitrostat) 0.4 Mg Subl, 0.4 MG SL Q5MP PRN for CHEST PAIN, ( Reported) Allergies Coded Allergies: Lisinopril (Verified Allergy, Intermediate, HIVES ND SWELLING, 09/18/12) Penicillins (Verified Allergy, Intermediate, TRIMOX-HIVES, 09/18/12) Sulfa Drugs (Verified Allergy, Intermediate, HIVES, 09/18/12) Amoxicillin (Unverified Allergy, Unknown, 08/20/15) Oxycodone (Verified Allergy, Unknown, PERCOCET, 09/18/12) Temazepam (Unverified Allergy, Unknown, 08/20/15) JOSE MCCARTY DO May 05, 2017 12:33 ILCO GARCIA MD May 10, 2017 22:09
== END 2017-05-05 12:08 | disposition home health service (06) | DRG 378 ==
LOC: M ED 22:50 → M ED INP 05-04 04:16 → M MSPAV 05-04 05:42
PROVIDERS: ADMIT Internal Medicine; ATTEND Internal Medicine Nephrology
DX: K92.2 Gastrointestinal hemorrhage, unspecified (principal); J44.1 Chronic obstructive pulmonary disease with (acute) exacerbation; D62 Acute posthemorrhagic anemia; I50.32 Chronic diastolic (congestive) heart failure; B02.29 Other postherpetic nervous system involvement; C79.51 Secondary malignant neoplasm of bone; I13.0 Hypertensive heart and chronic kidney disease with heart failure and stage 1 through stage 4 chronic kidney disease, or unspecified chronic kidney disease; K21.9 Gastro-esophageal reflux disease without esophagitis; F32.9 Major depressive disorder, single episode, unspecified; Z79.899 Other long term (current) drug therapy; Z79.82 Long term (current) use of aspirin; Z79.52 Long term (current) use of systemic steroids; Z88.0 Allergy status to penicillin; Z88.8 Allergy status to other drugs, medicaments and biological substances; Z88.2 Allergy status to sulfonamides; Z85.3 Personal history of malignant neoplasm of breast; F03.90 Unspecified dementia, unspecified severity, without behavioral disturbance, psychotic disturbance, mood disturbance, and anxiety; Z86.718 Personal history of other venous thrombosis and embolism; M10.9 Gout, unspecified; N18.9 Chronic kidney disease, unspecified; G47.00 Insomnia, unspecified; E78.5 Hyperlipidemia, unspecified; Z96.662 Presence of left artificial ankle joint; Z96.612 Presence of left artificial shoulder joint; Z90.13 Acquired absence of bilateral breasts and nipples; G60.9 Hereditary and idiopathic neuropathy, unspecified

== ENCOUNTER 2017-05-13 14:49 | Outpatient (RCR) | payer MEDICARE, MEDICAID | END 2017-06-12 | LOC: M ONCR 14:49 | DX: C50.911 Malignant neoplasm of unspecified site of right female breast (principal); C79.51 Secondary malignant neoplasm of bone (principal); C50.912 Malignant neoplasm of unspecified site of left female breast | CPT/HCPCS: 77336 ==

== ENCOUNTER 2017-05-21 21:39 | Emergency (ER) | payer MEDICARE, MEDICAID ==
[~2017-05-21] VITALS: Ht 157.5 cm; Wt 81.8 kg
[~2017-05-21 21:39] MED LIST changes: +DIPH2.5T14 PO; +DOXY100T PO; +HYDR-3363 PO; +MAXI0.1O OD; +MAXI0.1S4 OD; +METH125VL IM; +NORC10TA21 PO; +PROAAER10 INH; +SERT-138 PO
[2017-05-21] MEDS ORDERED: methylPREDNISolone INJ 125 MG/2 ML VIAL (J2930) IV ONE (22:15)
[2017-05-21 22:17] LABS: BASO % 0.3 % (0.0-1.0); EOS # 0.1 10^3/uL (0.0-0.50); IMMATURE GRANULOCYTE % 1.3 % (0-0); LYMPH # 0.9 10^3/uL (1.5-4.5); LYMPH % 9.7 % (24.0-44.0); MEAN CORPUSCULAR HEMOGLOBIN 28.6 pg (27.0-33.0); MEAN CORPUSCULAR HGB CONC 30.2 g/dl (32.0-36.5); MEAN CORPUSCULAR VOLUME 94.5 fl (80.0-96.0); MONO # 0.7 10^3/uL (0.0-0.8); MONO % 6.9 % (0.0-5.0); NEUTROPHILS # 7.6 10^3/uL (1.8-7.7); NEUTROPHILS % 80.8 % (36.0-66.0); PLATELET COUNT, AUTOMATED 203 10^3/uL (150-450); RED CELL DISTRIBUTION WIDTH 15.5 % (11.5-14.5); WHITE BLOOD COUNT 9.5 10^3/uL (4.0-10.0)
[2017-05-21] MEDS: IPRATROPIUM 0.5MG/ALBUTEROL 2.5MG INH SOL UD 3ML (DUONEB)(J7620) NEB PRN ×2 (22:31→23:48)
[2017-05-21 22:34] LABS: ABG BASE EXCESS 5.4 (-2.0-2.0); ABG HCO3 31.3 MEQ/L (22.0-26.0); ABG PARTIAL PRESSURE CO2 53.5 mmHg (35.0-45.0); ABG PARTIAL PRESSURE O2 74.8 mmHg (75.0-100.0); ABG STANDARD HCO3 29.3 MEQ/L (22.0-26.0); ABG TOTAL CO2 32.9 MEQ/L (23.0-31.0); ABG pH (ARTERIAL) 7.385 UNITS (7.350-7.450)
[2017-05-21 22:42] LABS: CALCIUM LEVEL 8.2 MG/DL (8.8-10.2); CREATININE FOR GFR 1.4 MG/DL (0.55-1.02); FREE T4 0.83 NG/DL (0.76-1.46); GLOMERULAR FILTRATION RATE 38.7 (>39); POTASSIUM SERUM 4.5 MEQ/L (3.5-5.1)
--- NOTE | 2017-05-21 23:50 | REPUSA ---
Clinical history: shortness of breath. Comparison: 05/03/2017. Findings: Frontal and lateral views of the chest were obtained. The mediastinum and cardiac silhouett e are within normal limits. The lungs are clear. No pleural effusion or pneumothorax is seen. The oss eous structures and soft tissues are unremarkable. Impression: No acute disease.
[2017-05-22 00:15] VITALS: BP 193/71
[2017-05-22] MEDS ORDERED: dexameTHASONE 20 MG/5 ML VIAL (J1100) IV ONE (00:45)
[2017-05-22] MEDS ORDERED: PRED20TA PO (00:47)
--- NOTE | 2017-05-22 08:05 | ECGEPIP ---
Stationary ECG Study [facility] - ED Test Date: 2017-05-21 Pat Name: MONSERRAT VELASCO Department: Room: - Gender: F Science Tutor: hannah : [id number] Requested By: TERRELL Grajeda Order Number: [id number] Reading MD: Amilcar Eduardo Measurements Intervals Kinder Rate: 74 P: -30 GA: 119 QRS: 2 QRSD: 94 T: -9 QT: 399 QTc: 445 Interpretive Statements SINUS RHYTHM WITH SHORT GA INTERVAL NSTTW ABNORMALITIES SIMILAR TO 05/03/17 Electronically Signed On 05-22-2017 8:05:29 EST by Amilcar Eduardo
== END 2017-05-22 01:28 | disposition home or self-care (01) ==
LOC: M ED 21:39 → EDBD 21:39 → M ED 05-22 01:28
DX: J44.1 Chronic obstructive pulmonary disease with (acute) exacerbation (principal); R94.31 Abnormal electrocardiogram [ECG] [EKG]; N18.9 Chronic kidney disease, unspecified; C50.919 Malignant neoplasm of unspecified site of unspecified female breast; Z92.3 Personal history of irradiation; F41.9 Anxiety disorder, unspecified; F32.9 Major depressive disorder, single episode, unspecified; Z79.82 Long term (current) use of aspirin; Z79.899 Other long term (current) drug therapy; Z88.0 Allergy status to penicillin; Z88.8 Allergy status to other drugs, medicaments and biological substances; Z88.5 Allergy status to narcotic agent; Z88.2 Allergy status to sulfonamides
CPT/HCPCS: 36600; 71020; 80048; 82550; 82553; 82803; 83880; 84439; 84443; 84484; 85025; 87040; 87804; 93005; 93041; 94640; 96374; 96375; 99285; J1100; J2930

== ENCOUNTER 2017-06-01 11:39 | Emergency (ER) | payer MEDICARE, MEDICAID ==
[~2017-06-01] VITALS: Ht 157.5 cm; Wt 83.6 kg
[2017-06-01] MEDS ORDERED: CLON1TAB PO (12:00)
[2017-06-01] MEDS ORDERED: CLON0.5T PO (12:00)
[2017-06-01] MEDS ORDERED: NORCO, ANEXSIA 5/325MG TABLET (HYDROcodone/ACETAMINOPHEN) PO ONE (12:45)
[2017-06-01 13:52] VITALS: BP 167/78
--- NOTE | 2017-06-01 19:56 | REP ---
CT cervical spine without contrast: History: Injury in a fall. Technique: Helical scanning is acquired. Axial 2 mm slices are reformatted. Coronal and sagittal multiplanar reformation images are generated and reviewed. Comparison CT study is from January 27, 2017 Findings: Axial CT images show no evidence of cervical spine fracture. There is straightening of the normal cervical lordosis. No malalignment is seen. The previously noted 16 mm radiolucency in the C6 vertebral body is again seen, unchanged in size. On today's images, there is an essentially circumferential sclerotic margin suggesting a possibly benign lesion or cyst. There is diffuse degenerative disc disease and perhaps this is associated with intravertebral disc herniation such as a large Schmorl's node or an associated cyst. In any event it is not changed. The degenerative spondylosis changes are status quo as well. There are cystic changes in the dens which are felt to be degenerative and these are unchanged. The patient's head is held turned somewhat to the right during this acquisition. Impression: No traumatic abnormality noted. Degenerative spondylosis changes. Stable C6 radiolucent lesion, question benign cyst. Signed by Roberto Velazquez MD 06/02/2017 08:06 A
--- NOTE | 2017-06-01 19:58 | REP ---
CT brain without contrast: History: Head injury in a fall. Findings: Digital lateral production technologist view is unremarkable. Bone window settings show an intact bony calvarium. No fracture is seen. Vascular calcification and diffuse atrophy are noted. There is physiologic calcification of the basal ganglia bilaterally. There is no evidence of intracranial hemorrhage. No extra-axial fluid collection is seen. No mass, edema or midline shift is observed. No infarction is seen. No significant scalp hematoma is seen. Impression: Diffuse atrophy and vascular calcification. No acute intracranial lesion. No skull fracture. Signed by Roberto Velazquez MD 06/02/2017 08:06 A
--- NOTE | 2017-06-02 11:34 | ED PDOC ---
Post-Departure Follow-Up dr woodruff faxed formal report of ct c spine for fu Lelo Hahn MD Jun 02, 2017 11:34
== END 2017-06-01 13:53 | disposition home or self-care (01) ==
LOC: M ED 11:39
DX: S00.03XA Contusion of scalp, initial encounter (principal); W05.0XXA Fall from non-moving wheelchair, initial encounter; Y92.9 Unspecified place or not applicable; Y93.89 Activity, other specified; Y99.9 Unspecified external cause status; E11.9 Type 2 diabetes mellitus without complications; N18.3 Chronic kidney disease, stage 3 (moderate); F41.9 Anxiety disorder, unspecified; F32.9 Major depressive disorder, single episode, unspecified; Z85.3 Personal history of malignant neoplasm of breast; Z98.61 Coronary angioplasty status; Z95.828 Presence of other vascular implants and grafts; Z90.13 Acquired absence of bilateral breasts and nipples; Z79.899 Other long term (current) drug therapy; Z79.52 Long term (current) use of systemic steroids; Z88.0 Allergy status to penicillin; Z88.5 Allergy status to narcotic agent; Z88.2 Allergy status to sulfonamides; Z88.8 Allergy status to other drugs, medicaments and biological substances